=== PATIENT | male | born 1975 | race Caucasian/White ===

== ENCOUNTER → 2016-05-12 | Outpatient (CLI) | payer MEDICARE, MEDICAID ==
[~2016-05-12] MED LIST: /QUET10TA; DEPA500T2 PO; DIOV160T5; DIOV320T6 PO; DIOV80TA; DIOV80TA OR; DOCU10CA PO; HYDR10TAB PO; IMIT6INJ SC; KLON2TAB; KLON2TAB OR; LAMI25TA; LITH45TASA PO; LITHIUM CARBONATE PO; LORA2TAB; NICO14DI3 TD; OMEP40CA2 PO; PAXI20TA; PAXI20TA OR; PAXI20TA3 PO; QUET30TA OR; RITA10TA OR; SIMV10TA2 PO; SUBO8MIS SL; TAMS0.4C2 PO; VERA120T2 PO; ZOLO100T; ZOLO100T OR; ZYPR20TA; ZYPR20TA OR; prestique PO
--- NOTE | 2016-05-12 12:16 | REP ---
BILATERAL BREAST ULTRASOUND: 05/12/2016. Clinical history: 40-year-old male with reported palpable lumps upper outer quadrant of the breast and into the axilla. Suspect large lymph nodes. Comparison: Bilateral mammogram 05/12/2016. Findings: Right breast shows scanning from 9-12 o'clock position with no parenchymal abnormalities, however, high in the axillary tail and axilla are two visible nodes. More inferiorly is a 1.5 x 1 x 0.6 cm node about 10.7 cm from the nipple and at the 11 o'clock position 12 cm from the nipple is a slightly larger 1.9 x 1.4 x 0.6 cm lymph node. Left breast was scanned upper outer quadrant axillary tail and axilla from 12-3 o'clock. In the 1 o'clock position axillary tail, a 1.3 x 1.5 x 0.6 cm node about 7.7 cm from the nipple. In the axilla in the palpable area is a 3.3 x 1.9 x 1.1 cm node. Impression: 1. Bilateral axillary adenopathy and/or nodes in the axillary tail without other findings in the sonogram of the upper outer quadrant of each breast. Please see mammogram report this date for final assessment and recommendation. Signed by Americo Tran MD 05/12/2016 08:19 P
--- NOTE | 2016-05-12 12:32 | REP ---
BILATERAL DIAGNOSTIC MAMMOGRAM: 05/12/2016. Clinical history. The patient states bilateral breast lumps upper outer quadrant axillary tail region into the axilla for a few months. States both sides tender. States less so today. No prior study. Findings: Standard two-view mammography was performed with markers placed by the patient over the area of tenderness. CC and MLO views were obtained. Normal fatty parenchyma of the breast without retroareolar mass or gynecomastia. On the right side in the axilla are portions of lymph nodes visible. These cannot be measured as they are only seen in part. The left breast and portion of the axilla included does not show mammographically visible nodes. Bilateral breast ultrasound and axillary ultrasound: Multiple nodes are present in the left axilla and axillary tail of the breast at the 1 o'clock position 7.7 cm from the nipple, a 1.3 x 1.5 x 0.6 cm node and higher in the axilla a 3.3 x 1.9 x 1.1 cm node not visible mammographically on the left side. The right breast ultrasound showed two nodes in the axillary tail and axillary region in the upper outer quadrant 10 o'clock 10.7 cm from nipple 1.5 x 1 x 0.6 cm and at the 11 o'clock in the region of the palpable area a 1.9 x 1.4 x 0.6 cm node about 12 cm from the nipple. IMPRESSION: BIRADS ACR category 4 suspicious. Suspicious finding. Biopsy should be considered. I would recommend CT evaluation of the axilla for the adenopathy and to guide any decision for biopsy or other next steps. Largest node in the left axilla 3.3 x 1.9 x 1.1 cm. This could be reactive or pathologic. There are no abnormalities visible in the mammogram as the right side only showed portions of lymph nodes in the high axilla. He did state there is a family history of a grandmother with breast cancer in her thirties. B-RADS/ACR category 4 mammogram. Suspicious abnormality - biopsy should be considered. Usually requires biopsy. This mammogram was interpreted with the aid of an FDA-approved computer-aided detection system. A. Negative x-ray reports should not delay biopsy if a dominant or clinically suspicious mass is present. B. Four to eight percent of cancers are not identified by x-ray. C. Adenosis and dense breasts may obscure an underlying neoplasm. The patient states she had a clinical breast exam in 04/2016. The patient letter being requested is M2 male. Signed by Americo Tran MD 05/12/2016 08:20 P
== END ==
LOC: M RAD 10:38
PROVIDERS: ATTEND Physician Assistant
DX: N63 Unspecified lump in breast (principal); R59.9 Enlarged lymph nodes, unspecified
CPT/HCPCS: 76642; G0204

== ENCOUNTER → 2016-05-18 | Outpatient (REF) | payer MEDICARE, MEDICAID ==
[2016-05-18 11:54] LABS: BASO % 0.6 % (0.0-1.0); EOS # 0.3 K/mm3 (0.0-0.50); EOS % 3.9 % (0.0-3.0); LARGE UNSTAINED CELL # 0.1 K/mm3 (0.0-0.4); LARGE UNSTAINED CELL % 1.4 % (0.0-4.0); LYMPH % 27.3 % (24.0-44.0); MEAN CORPUSCULAR HEMOGLOBIN 32.7 pg (27.0-33.0); MEAN CORPUSCULAR HGB CONC 34.5 g/dl (32.0-36.5); MONO # 0.4 K/mm3 (0.0-0.8); MONO % 5.6 % (0.0-5.0); NEUTROPHILS # 4.3 K/mm3 (1.8-7.7); NEUTROPHILS % 61.3 % (36.0-66.0); PLATELET COUNT, AUTOMATED 194 k/mm3 (150-450); RED CELL DISTRIBUTION WIDTH 12.4 % (11.5-14.5); WHITE BLOOD COUNT 7.1 K/mm3 (4.0-10.0)
[2016-05-18 12:17] LABS: ALBUMIN 3.9 GM/DL (3.2-5.2); ALBUMIN/GLOBULIN RATIO 1.39 (1.00-1.93); ALKALINE PHOSPHATASE 75 U/L (45-117); ALT/SGPT 22 U/L (12-78); ANION GAP 5 MEQ/L (8-16); AST/SGOT 7 U/L (15-37); BILIRUBIN,TOTAL 0.4 MG/DL (0.2-1.0); BLOOD UREA NITROGEN 9 MG/DL (7-18); CALCIUM LEVEL 8.8 MG/DL (8.5-10.1); CARBON DIOXIDE LEVEL 29 MEQ/L (21-32); CHLORIDE LEVEL 103 MEQ/L (98-107); CREATININE FOR GFR 0.77 MG/DL (0.70-1.30); GLOMERULAR FILTRATION RATE > 60.0 (>60); GLUCOSE, FASTING 95 MG/DL (70-105); POTASSIUM SERUM 4.7 MEQ/L (3.5-5.1); SODIUM LEVEL 137 MEQ/L (136-145); TOTAL PROTEIN 6.7 GM/DL (6.4-8.2)
[2016-05-18 12:18] LABS: LITHIUM LEVEL 1.16 MEQ/L (0.60-1.20)
== END ==
LOC: M SFHCLERA 08:43
PROVIDERS: ATTEND Physician Assistant
DX: R59.0 Localized enlarged lymph nodes (principal); Z79.899 Other long term (current) drug therapy; R56.9 Unspecified convulsions

== ENCOUNTER → 2016-05-26 | Outpatient (CLI) | payer MEDICARE, MEDICAID ==
[~2016-05-26] MED LIST changes: +ISOVUE-370 76% 100ML VIAL (Q9967) As Ordered ONE
--- NOTE | 2016-05-26 12:20 | REP ---
CT study of the chest with IV contrast: History: Axillary lymphadenopathy. Comparison is made with mammography and sonography from May 12, 2016. CT contrast dose: 75 ml of Isovue [address] findings: The lung valiente are clear. There is no evidence of pulmonary nodule or mass lesion. There is a mild zone of linear fibrosis in the right middle lobe. No pleural effusion or pericardial effusion is seen. No hilar or mediastinal mass or adenopathy is seen. No supraclavicular adenopathy is observed. There are several normal-appearing lymph nodes in the axillary soft tissues bilaterally. There is no adenopathy by CT criteria. No adrenal lesion is seen. The visualized upper abdominal structures are unremarkable. No bony destructive lesion is appreciated. Impression: No active disease. No adenopathy seen by CT criteria. Signed by Donny Marcos MD 05/26/2016 12:27 P
== END ==
LOC: M RAD 11:13
PROVIDERS: ATTEND Physician Assistant
DX: R59.0 Localized enlarged lymph nodes (principal)
CPT/HCPCS: 71260; Q9967

== ENCOUNTER → 2016-07-08 | Outpatient (REF) | payer MEDICARE, MEDICAID ==
[~2016-07-08] MED LIST changes: -ISOVUE-370 76% 100ML VIAL (Q9967) As Ordered ONE
[2016-07-08 17:15] LABS: MEAN CORPUSCULAR HEMOGLOBIN 30.3 pg (27.0-33.0); MEAN CORPUSCULAR HGB CONC 32.7 g/dl (32.0-36.5); MEAN CORPUSCULAR VOLUME 92.6 fl (80.0-96.0); RED CELL DISTRIBUTION WIDTH 12.8 % (11.5-14.5); WHITE BLOOD COUNT 9.7 K/mm3 (4.0-10.0)
[2016-07-08 18:13] LABS: ALBUMIN/GLOBULIN RATIO 1.38 (1.00-1.93); ALKALINE PHOSPHATASE 68 U/L (45-117); ALT/SGPT 22 U/L (12-78); ANION GAP 3 MEQ/L (8-16); AST/SGOT 5 U/L (15-37); BILIRUBIN,TOTAL 0.4 MG/DL (0.2-1.0); BLOOD UREA NITROGEN 11 MG/DL (7-18); CALCIUM LEVEL 8.8 MG/DL (8.5-10.1); CARBON DIOXIDE LEVEL 30 MEQ/L (21-32); CHLORIDE LEVEL 108 MEQ/L (98-107); CREATININE FOR GFR 0.84 MG/DL (0.70-1.30); GLOMERULAR FILTRATION RATE > 60.0 (>60); GLUCOSE, FASTING 79 MG/DL (70-105); MAGNESIUM LEVEL 2.1 MG/DL (1.8-2.4); POTASSIUM SERUM 4.2 MEQ/L (3.5-5.1); SODIUM LEVEL 141 MEQ/L (136-145); TOTAL PROTEIN 6.9 GM/DL (6.4-8.2)
[2016-07-08 18:16] LABS: LITHIUM LEVEL 1.22 MEQ/L (0.60-1.20)
== END ==
LOC: M SFHCLERA 12:57
PROVIDERS: ATTEND Physician Assistant
DX: Z51.81 Encounter for therapeutic drug level monitoring (principal); Z79.899 Other long term (current) drug therapy

== ENCOUNTER → 2016-08-18 | Outpatient (REF) | payer MEDICARE, MEDICAID | LOC: M SMT 16:51 | PROVIDERS: ATTEND Nurse Practitioner Family | DX: R39.9 Unspecified symptoms and signs involving the genitourinary system (principal) | CPT/HCPCS: 81001; 87086; G0463 ==

== ENCOUNTER → 2016-09-15 | Outpatient (REF) | payer MEDICARE, MEDICAID ==
[~2016-09-15] MED LIST changes: +PAXI20TA29 PO; -PAXI20TA3 PO
[2016-09-15 17:43] LABS: ALBUMIN 4.2 GM/DL (3.2-5.2); ANION GAP 7 MEQ/L (8-16); BLOOD UREA NITROGEN 7 MG/DL (7-18); CALCIUM LEVEL 9.4 MG/DL (8.5-10.1); CARBON DIOXIDE LEVEL 25 MEQ/L (21-32); CHLORIDE LEVEL 106 MEQ/L (98-107); GLOMERULAR FILTRATION RATE > 60.0 (>60); GLUCOSE, FASTING 105 MG/DL (70-105); POTASSIUM SERUM 3.9 MEQ/L (3.5-5.1); SODIUM LEVEL 138 MEQ/L (136-145)
== END ==
LOC: M LABSMT 13:27
PROVIDERS: ATTEND Physician Assistant
DX: R35.1 Nocturia (principal)
CPT/HCPCS: 80069; G0103

== ENCOUNTER → 2016-09-24 | Outpatient (CLI) | payer MEDICARE, MEDICAID ==
--- NOTE | 2016-09-24 16:05 | REP ---
Clinical: Left flank pain and nocturia. Technique: Romero scale and color evaluation using curved array transducer. Findings: The kidneys are essentially normal in contour size and echogenicity and reniform shape without hydronephrosis, nephrolithiasis, cystic or renal mass lesion. Right kidney measures 11.5 x 5.8 x 4.9 cm. Left kidney measures 12.9 x 5.4 x 4.7 cm. Bladder is incompletely distended and grossly normal by current evaluation measuring 5.3 x 6.8 x 5.4 cm (127 ml) with bilateral ureteral jets noted. Impression: Normal appearance to the bilateral kidneys. Under distended but unremarkable appearance of the bladder. Signed by Avinash Moser MD 09/24/2016 03:57 P
== END ==
LOC: M LRY 14:20
PROVIDERS: ATTEND Physician Assistant
DX: R35.1 Nocturia (principal)

== ENCOUNTER → 2016-10-19 | Outpatient (CLI) | payer MEDICARE, MEDICAID | LOC: M LRY 10:10 | PROVIDERS: ATTEND Psychiatry & Neurology Neurology | DX: F31.9 Bipolar disorder, unspecified (principal) ==

== ENCOUNTER → 2017-01-10 | Outpatient (CLI) | payer MEDICARE, MEDICAID ==
[2017-01-10 12:15] LABS: MEAN CORPUSCULAR HGB CONC 33.3 g/dl (32.0-36.5); MEAN CORPUSCULAR VOLUME 93.1 fl (80.0-96.0); PLATELET COUNT, AUTOMATED 203 10^3/uL (150-450); RED CELL DISTRIBUTION WIDTH 12.3 % (11.5-14.5); WHITE BLOOD COUNT 7.4 10^3/uL (4.0-10.0)
[2017-01-10 12:54] LABS: ALBUMIN 3.8 GM/DL (3.2-5.2); ALBUMIN/GLOBULIN RATIO 1.27 (1.00-1.93); BILIRUBIN,DIRECT 0.2 MG/DL (0.0-0.2); BILIRUBIN,TOTAL 0.4 MG/DL (0.2-1.0); TOTAL PROTEIN 6.8 GM/DL (6.4-8.2)
[2017-01-10 12:59] LABS: LITHIUM LEVEL 0.75 MEQ/L (0.60-1.20)
== END ==
LOC: M LRY 09:12
PROVIDERS: ATTEND Psychiatry & Neurology Neurology
DX: G44.021 Chronic cluster headache, intractable (principal); F31.9 Bipolar disorder, unspecified
CPT/HCPCS: 36415; 80076; 80164; 80178; 85027; G0463

== ENCOUNTER → 2017-07-12 | Outpatient (REF) | payer MEDICARE, MEDICAID ==
[2017-07-12 12:17] LABS: BASO # 0.1 10^3/uL (0.0-0.2); BASO % 0.7 % (0.0-1.0); EOS # 0.3 10^3/uL (0.0-0.50); EOS % 4.4 % (0.0-3.0); IMMATURE GRANULOCYTE % 0.4 % (0-3.0); LYMPH # 2.1 10^3/uL (1.5-4.5); LYMPH % 29.8 % (24.0-44.0); MEAN CORPUSCULAR HEMOGLOBIN 30.9 pg (27.0-33.0); MEAN CORPUSCULAR HGB CONC 33.3 g/dl (32.0-36.5); MEAN CORPUSCULAR VOLUME 92.6 fl (80.0-96.0); MONO # 0.4 10^3/uL (0.0-0.8); MONO % 5.8 % (0.0-5.0); NEUTROPHILS # 4.2 10^3/uL (1.8-7.7); NEUTROPHILS % 58.9 % (36.0-66.0); PLATELET COUNT, AUTOMATED 208 10^3/uL (150-450); RED BLOOD COUNT 4.21 10^6/uL (4.30-6.10); RED CELL DISTRIBUTION WIDTH 12.6 % (11.5-14.5); WHITE BLOOD COUNT 7.1 10^3/uL (4.0-10.0)
[2017-07-12 12:53] LABS: ALBUMIN 3.9 GM/DL (3.2-5.2); ALBUMIN/GLOBULIN RATIO 1.18 (1.00-1.93); ALKALINE PHOSPHATASE 71 U/L (45-117); ALT/SGPT 23 U/L (12-78); ANION GAP 6 MEQ/L (8-16); AST/SGOT 8 U/L (7-37); BILIRUBIN,TOTAL 0.4 MG/DL (0.2-1.0); BLOOD UREA NITROGEN 9 MG/DL (7-18); CALCIUM LEVEL 8.7 MG/DL (8.5-10.1); CARBON DIOXIDE LEVEL 29 MEQ/L (21-32); CHLORIDE LEVEL 106 MEQ/L (98-107); CREATININE FOR GFR 0.75 MG/DL (0.70-1.30); GLOMERULAR FILTRATION RATE > 60.0 (>60); GLUCOSE, FASTING 98 MG/DL (70-100); POTASSIUM SERUM 4.2 MEQ/L (3.5-5.1); SODIUM LEVEL 141 MEQ/L (136-145); TOTAL PROTEIN 7.2 GM/DL (6.4-8.2); VALPROIC ACID (DEPAKOTE) 21.5 UG/ML (50.0-100.0)
[2017-07-12 12:54] LABS: LITHIUM LEVEL 0.83 MEQ/L (0.60-1.20)
== END ==
LOC: M SFHCLERA 09:55
DX: I10 Essential (primary) hypertension (principal); E03.9 Hypothyroidism, unspecified; F31.9 Bipolar disorder, unspecified
CPT/HCPCS: 80178

== ENCOUNTER → 2017-08-09 | Outpatient (REF) | payer MEDICARE, MEDICAID ==
[2017-08-09 17:13] LABS: HEMATOCRIT 42.9 % (42.0-52.0); HEMOGLOBIN 14.5 g/dl (13.5-17.5); MEAN CORPUSCULAR HEMOGLOBIN 31.6 pg (27.0-33.0); MEAN CORPUSCULAR HGB CONC 33.8 g/dl (32.0-36.5); MEAN CORPUSCULAR VOLUME 93.5 fl (80.0-96.0); PLATELET COUNT, AUTOMATED 218 10^3/uL (150-450); RED BLOOD COUNT 4.59 10^6/uL (4.30-6.10); RED CELL DISTRIBUTION WIDTH 12.5 % (11.5-14.5); WHITE BLOOD COUNT 10.8 10^3/uL (4.0-10.0)
[2017-08-09 17:24] LABS: CHOLESTEROL LEVEL 150 MG/DL (<200); CHOLESTEROL RISK RATIO 2.459 (<5); FERRITIN 42 NG/ML (26-388); FREE T4 1.08 NG/DL (0.76-1.46); HDL CHOLESTEROL 61 MG/DL (>40); IRON (FE) 174 UG/DL (65-175); LDL CHOLESTEROL 57.8 MG/DL (<100); NON-HDL-C 89 MG/DL; TRIGLYCERIDES LEVEL 156 MG/DL (<150)
== END ==
LOC: M SFHCLERA 12:16
DX: R10.12 Left upper quadrant pain (principal); E03.9 Hypothyroidism, unspecified; D64.9 Anemia, unspecified
CPT/HCPCS: 83540

== ENCOUNTER 2018-01-02 10:41 | Emergency (ER) | payer MEDICARE, MEDICAID ==
[2018-01-02] MEDS: LORazepam 2 MG/ML VIAL (J2060) IV (11:41)
[2018-01-02 11:47] LABS: BASO # 0.1 10^3/uL (0.0-0.2); BASO % 0.7 % (0.0-1.0); EOS # 0.3 10^3/uL (0.0-0.50); EOS % 3.8 % (0.0-3.0); HEMATOCRIT 45.3 % (42.0-52.0); HEMOGLOBIN 15.2 g/dl (13.5-17.5); IMMATURE GRANULOCYTE % 0.7 % (0-3.0); LYMPH # 1.5 10^3/uL (1.5-4.5); LYMPH % 20.8 % (24.0-44.0); MEAN CORPUSCULAR HEMOGLOBIN 31.9 pg (27.0-33.0); MEAN CORPUSCULAR HGB CONC 33.6 g/dl (32.0-36.5); MONO # 0.5 10^3/uL (0.0-0.8); MONO % 6.3 % (0.0-5.0); NEUTROPHILS # 4.8 10^3/uL (1.8-7.7); NEUTROPHILS % 67.7 % (36.0-66.0); PLATELET COUNT, AUTOMATED 211 10^3/uL (150-450); RED BLOOD COUNT 4.77 10^6/uL (4.30-6.10); RED CELL DISTRIBUTION WIDTH 12.3 % (11.5-14.5); WHITE BLOOD COUNT 7.1 10^3/uL (4.0-10.0)
[2018-01-02] MEDS: NS 1,000 ML IV (11:49)
[2018-01-02 12:16] LABS: AMMONIA 33 uMOL/L (<32)
[2018-01-02 12:19] LABS: LACTIC ACID SEPSIS PROTOCOL 1.7 MMOL/L (0.4-2.0)
[2018-01-02 12:28] LABS: ACETAMINOPHEN LEVEL < 2.0 UG/ML (10.0-30.0); ALBUMIN 3.5 GM/DL (3.2-5.2); ALBUMIN/GLOBULIN RATIO 0.97 (1.00-1.93); ALKALINE PHOSPHATASE 60 U/L (45-117); ALT/SGPT 23 U/L (12-78); ANION GAP 7 MEQ/L (8-16); AST/SGOT 12 U/L (7-37); BILIRUBIN,DIRECT 0.1 MG/DL (0.0-0.2); BILIRUBIN,TOTAL 0.4 MG/DL (0.2-1.0); BLOOD UREA NITROGEN 9 MG/DL (7-18); CALCIUM LEVEL 8.5 MG/DL (8.5-10.1); CARBON DIOXIDE LEVEL 28 MEQ/L (21-32); CHLORIDE LEVEL 107 MEQ/L (98-107); CK-MB VALUE MASS < 1.0 NG/ML (<3.6); CPK CREATINE PHOSPHOKINASE 91 U/L (39-308); CREATININE FOR GFR 0.83 MG/DL (0.70-1.30); ETHYL ALCOHOL (ETHANOL) < 0.003 % (0.000-0.010); GLOMERULAR FILTRATION RATE > 60.0 (>60); GLUCOSE, FASTING 95 MG/DL (70-100); LITHIUM LEVEL 1.14 MEQ/L (0.60-1.20); POTASSIUM SERUM 4.1 MEQ/L (3.5-5.1); SALICYLATE LEVEL < 1.7 MG/DL (5.0-30.0); SODIUM LEVEL 142 MEQ/L (136-145); TOTAL PROTEIN 7.1 GM/DL (6.4-8.2); TROPONIN I < 0.02 NG/ML (< 0.10); VALPROIC ACID (DEPAKOTE) 17.5 UG/ML (50.0-100.0)
[2018-01-02 13:50] LABS: AMPHETAMINES LEVEL URINE NEGATIVE (NEGATIVE); BARBITURATES URINE NEGATIVE (NEGATIVE); BENZODIAZEPINES URINE NEGATIVE (NEGATIVE); CANNABINOIDS URINE NEGATIVE (NEGATIVE); COCAINE METABOLITE URINE NEGATIVE (NEGATIVE); METHADONE URINE NEGATIVE (NEGATIVE); OPIATES URINE NEGATIVE (NEGATIVE); PHENCYCLIDINE URINE NEGATIVE (NEGATIVE)
[2018-01-02] MEDS: OXAZEPAM 10 MG CAP PO (15:28)
== END 2018-01-02 15:30 | disposition home or self-care (01) ==
LOC: M ED 10:41
DX: R56.9 Unspecified convulsions (principal); F17.210 Nicotine dependence, cigarettes, uncomplicated; F10.10 Alcohol abuse, uncomplicated; F11.10 Opioid abuse, uncomplicated; Z79.899 Other long term (current) drug therapy; F31.9 Bipolar disorder, unspecified
CPT/HCPCS: J2060

== ENCOUNTER → 2018-01-09 | Outpatient (REF) | payer MEDICARE, MEDICAID | LOC: M SFHCLERA 09:27 | DX: E72.20 Disorder of urea cycle metabolism, unspecified (principal); Z53.8 Procedure and treatment not carried out for other reasons ==

== ENCOUNTER 2018-01-12 11:47 | Emergency (ER) | payer MEDICARE, MEDICAID | END 2018-01-12 14:06 | disposition left against medical advice (07) | LOC: M ED 11:47 | DX: Z53.29 Procedure and treatment not carried out because of patient's decision for other reasons (principal) ==

== ENCOUNTER → 2018-03-31 | Outpatient (CLI) | payer MEDICARE ==
[~2018-03-31] MED LIST changes: +OXAZ10CA3 PO
--- NOTE | 2018-03-31 11:11 | REP ---
CT Head without contrast HISTORY: Headache COMPARISON: None There is no intraparenchymal hemorrhage, acute infarct, mass or midline shift. The ventricular system is normal in appearance. There is no extra cerebral collection. There is no fracture. The visualized sinuses are clear. IMPRESSION: There is no intracranial lesion. Electronically Signed by Mor Gomez MD 03/31/2018 11:03 A
== END ==
LOC: M LRY 09:35
PROVIDERS: ATTEND Nurse Practitioner Family
DX: M25.572 Pain in left ankle and joints of left foot (principal); E03.9 Hypothyroidism, unspecified
CPT/HCPCS: 73610; 84439; 84443; 93005; G0463

== ENCOUNTER → 2018-07-17 | Outpatient (REF) | payer MEDICARE ==
[~2018-07-17] MED LIST changes: -/QUET10TA; +HYDR-2773 PO; -HYDR10TAB PO; +SERO1TAB
[2018-07-17 19:53] LABS: ALBUMIN 3.8 GM/DL (3.2-5.2); ALT/SGPT 27 U/L (12-78); BILIRUBIN,TOTAL 0.2 MG/DL (0.2-1.0); BLOOD UREA NITROGEN 12 MG/DL (7-18); CALCIUM LEVEL 8.8 MG/DL (8.5-10.1); CARBON DIOXIDE LEVEL 27 MEQ/L (21-32); CHLORIDE LEVEL 109 MEQ/L (98-107); CREATININE FOR GFR 0.76 MG/DL (0.70-1.30); GLOMERULAR FILTRATION RATE > 60.0 (>60); GLUCOSE, FASTING 92 MG/DL (70-100); POTASSIUM SERUM 5.2 MEQ/L (3.5-5.1); SODIUM LEVEL 140 MEQ/L (136-145); TOTAL PROTEIN 7.2 GM/DL (6.4-8.2)
== END ==
LOC: M LABSMT 17:10
PROVIDERS: ATTEND Family Medicine
DX: E72.20 Disorder of urea cycle metabolism, unspecified (principal)

== ENCOUNTER → 2019-01-12 | Outpatient (CLI) | payer MEDICARE ==
[~2019-01-12] MED LIST changes: -OMEP40CA2 PO; +OMEP40CA97 PO
== END ==
LOC: M OUTALCOH 08:05
PROVIDERS: ATTEND Psychiatry & Neurology Psychiatry
DX: F10.20 Alcohol dependence, uncomplicated (principal)

== ENCOUNTER 2019-03-31 08:44 | Emergency (ER) | payer MEDICARE, MEDICAID ==
[~2019-03-31] VITALS: Ht 175.3 cm; Wt 70.5 kg
[~2019-03-31 08:44] MED LIST changes: +ALPH600C PO; +ALPR1TAB3 PO; +AMIT100TA PO; +AMIT50TA PO; +AMMO12LO TOP; +D31000TA PO; +FLOM0.4C39 PO; +FLUT44IN INH; +HYDR50TA70 PO; +IRBE150T12 PO; +LEVO75TA4 PO; +LITH300T2 PO; +MILK500C PO; +PROBCAP14 PO; +REXU1TAB4 PO; -SIMV10TA2 PO; +SIMV10TA21 PO; +SUMA4INJ4 SC; +VITA400C53 PO; +VRAY1.5C PO; +VRAY3CAP PO; +XANA1TAB2 PO
[2019-03-31] MEDS ORDERED: VRAY4.5C (09:00)
[2019-03-31] MEDS ORDERED: ZOLP10TA2 (09:00)
[2019-03-31 09:49] LABS: BASO # 0.1 10^3/uL (0.0-0.2); BASO % 0.5 % (0.0-1.0); EOS # 0.1 10^3/uL (0.0-0.5); EOS % 0.4 % (0.0-3.0); HEMATOCRIT 53.3 % (42.0-52.0); HEMOGLOBIN 17.7 g/dl (13.5-17.5); LYMPH # 1.7 10^3/uL (1.5-5.0); LYMPH % 13.9 % (24.0-44.0); MEAN CORPUSCULAR HEMOGLOBIN 30.5 pg (27.0-33.0); MEAN CORPUSCULAR HGB CONC 33.2 g/dl (32.0-36.5); MEAN CORPUSCULAR VOLUME 91.9 fl (80.0-96.0); MONO # 0.6 10^3/uL (0.0-0.8); MONO % 4.5 % (0.0-5.0); NEUTROPHILS # 9.8 10^3/uL (1.5-8.5); PLATELET COUNT, AUTOMATED 284 10^3/uL (150-450); WHITE BLOOD COUNT 12.3 10^3/uL (4.0-10.0)
[2019-03-31 10:14] LABS: BLOOD UREA NITROGEN 12 MG/DL (7-18); CALCIUM LEVEL 9.3 MG/DL (8.5-10.1); CARBON DIOXIDE LEVEL 23 MEQ/L (21-32); CHLORIDE LEVEL 107 MEQ/L (98-107); CREATININE FOR GFR 0.78 MG/DL (0.70-1.30); GLOMERULAR FILTRATION RATE > 60.0 (>60); GLUCOSE, FASTING 91 MG/DL (70-100); POTASSIUM SERUM 4.3 MEQ/L (3.5-5.1); SODIUM LEVEL 140 MEQ/L (136-145)
[2019-03-31 10:15] LABS: AMPHETAMINES LEVEL URINE NEGATIVE (NEGATIVE); BARBITURATES URINE NEGATIVE (NEGATIVE); BENZODIAZEPINES URINE POSITIVE (NEGATIVE); CANNABINOIDS URINE NEGATIVE (NEGATIVE); COCAINE METABOLITE URINE NEGATIVE (NEGATIVE); METHADONE URINE NEGATIVE (NEGATIVE); OPIATES URINE NEGATIVE (NEGATIVE); PHENCYCLIDINE URINE NEGATIVE (NEGATIVE)
[2019-03-31] MEDS ORDERED: hydrOXYzine 50 MG TAB PO ONE (10:30)
[2019-03-31 10:52] VITALS: BP 146/94
--- NOTE | 2019-03-31 22:25 | ECGEPIP ---
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
== END 2019-03-31 11:10 | disposition home or self-care (01) ==
LOC: M ED 08:44
DX: G44.009 Cluster headache syndrome, unspecified, not intractable (principal)

== ENCOUNTER 2019-07-20 23:14 | Emergency (ER) | payer MEDICARE, MEDICAID ==
[~2019-07-20] VITALS: Ht 175.3 cm; Wt 72.7 kg
[~2019-07-20 23:14] MED LIST changes: -IRBE150T12 PO; +IRBE150T7 PO; -VERA120T2 PO; +VERA120T9 PO; +VRAY4.5C; +ZOLP10TA2
[2019-07-20] MEDS ORDERED: LITH300T2 PO (23:41)
[2019-07-21] MEDS ORDERED: BOOSTRIX/ADACEL VACCINE (DIPHTH/PERTUSS/ACELL/TETANUS) 0.5ML SYR IM ONE
[2019-07-21 00:22] LABS: HEMATOCRIT 45.1 % (42.0-52.0); HEMOGLOBIN 15.3 g/dl (13.5-17.5); MEAN CORPUSCULAR HEMOGLOBIN 31.9 pg (27.0-33.0); MEAN CORPUSCULAR HGB CONC 33.9 g/dl (32.0-36.5); MEAN CORPUSCULAR VOLUME 94.2 fl (80.0-96.0); PLATELET COUNT, AUTOMATED 269 10^3/uL (150-450); RED BLOOD COUNT 4.79 10^6/uL (4.30-6.10); WHITE BLOOD COUNT 12.5 10^3/uL (4.0-10.0)
[2019-07-21 00:40] LABS: AMPHETAMINES LEVEL URINE NEGATIVE (NEGATIVE); BARBITURATES URINE NEGATIVE (NEGATIVE); BENZODIAZEPINES URINE POSITIVE (NEGATIVE); CANNABINOIDS URINE NEGATIVE (NEGATIVE); COCAINE METABOLITE URINE NEGATIVE (NEGATIVE); METHADONE URINE NEGATIVE (NEGATIVE); OPIATES URINE NEGATIVE (NEGATIVE); PHENCYCLIDINE URINE NEGATIVE (NEGATIVE)
[2019-07-21 00:56] LABS: ACETAMINOPHEN LEVEL < 2.0 UG/ML (10.0-30.0); ALBUMIN 3.7 GM/DL (3.2-5.2); ALT/SGPT 25 U/L (12-78); BILIRUBIN,DIRECT 0.1 MG/DL (0.0-0.2); BILIRUBIN,TOTAL 0.2 MG/DL (0.2-1.0); BLOOD UREA NITROGEN 11 MG/DL (7-18); CARBON DIOXIDE LEVEL 25 MEQ/L (21-32); CHLORIDE LEVEL 109 MEQ/L (98-107); ETHYL ALCOHOL (ETHANOL) 0.144 % (0.000-0.010); GLOMERULAR FILTRATION RATE > 60.0 (>60); GLUCOSE, FASTING 81 MG/DL (70-100); POTASSIUM SERUM 4.3 MEQ/L (3.5-5.1); SALICYLATE LEVEL 2.1 MG/DL (5.0-30.0); SODIUM LEVEL 140 MEQ/L (136-145); THYROID STIMULATING HORMONE 0.796 uIU/ML (0.358-3.740)
[2019-07-21 03:23] VITALS: BP 136/89
== END 2019-07-21 04:08 | disposition home or self-care (01) ==
LOC: M ED 23:14
DX: F10.10 Alcohol abuse, uncomplicated (principal); S51.812A Laceration without foreign body of left forearm, initial encounter; S51.811A Laceration without foreign body of right forearm, initial encounter; S21.119A Laceration without foreign body of unspecified front wall of thorax without penetration into thoracic cavity, initial encounter; X78.9XXA Intentional self-harm by unspecified sharp object, initial encounter; Y92.89 Other specified places as the place of occurrence of the external cause; F31.9 Bipolar disorder, unspecified; I10 Essential (primary) hypertension; K21.9 Gastro-esophageal reflux disease without esophagitis; N40.0 Benign prostatic hyperplasia without lower urinary tract symptoms; F17.210 Nicotine dependence, cigarettes, uncomplicated; Z79.899 Other long term (current) drug therapy; Z23 Encounter for immunization
CPT/HCPCS: 36415; 80048; 80076; 80307; 84443; 85027; 90471; 90715; 99284; G0480

== ENCOUNTER 2019-07-29 21:13 | Emergency (ER) | payer MEDICARE, MEDICAID ==
[~2019-07-29] VITALS: Ht 175.3 cm; Wt 77.3 kg
[2019-07-30] MEDS ORDERED: KETOROLAC TROMETHAMINE 10 MG TAB PO ONE (01:00)
[2019-07-30 05:20] VITALS: BP 164/98
== END 2019-07-30 05:23 | disposition home or self-care (01) ==
LOC: M ED 21:13
DX: F10.120 Alcohol abuse with intoxication, uncomplicated (principal); I10 Essential (primary) hypertension; F31.9 Bipolar disorder, unspecified; F17.200 Nicotine dependence, unspecified, uncomplicated; Z79.899 Other long term (current) drug therapy
CPT/HCPCS: 36415; 99283; G0480

== ENCOUNTER → 2019-10-16 | Outpatient (CLI) | payer MEDICARE, MEDICAID ==
[~2019-10-16] MED LIST changes: +GALC100S INJ; +LAMO25TA4 PO; +PARO20TA4 PO; +PARO40TA2 PO
== END ==
LOC: M OUTALCOH 09:00
PROVIDERS: ATTEND Psychiatry & Neurology Addiction Medicine
DX: F10.20 Alcohol dependence, uncomplicated (principal)

== ENCOUNTER → 2019-11-19 | Outpatient (RCR) | payer MEDICARE, MEDICAID | LOC: M OUTALCOH 10-26 16:00 | PROVIDERS: ATTEND Psychiatry & Neurology Addiction Medicine | DX: F10.20 Alcohol dependence, uncomplicated (principal) | CPT/HCPCS: 90834; H0038 ==

== ENCOUNTER 2019-12-02 11:41 | Emergency (ER) | payer MEDICARE, MEDICAID ==
[~2019-12-02] VITALS: Ht 175.3 cm; Wt 73.7 kg
[~2019-12-02 11:41] MED LIST changes: -GALC100S INJ; -LAMO25TA4 PO; -PARO20TA4 PO; -PARO40TA2 PO
[2019-12-02] MEDS ORDERED: PARO40TA2 PO (11:52)
[2019-12-02] MEDS ORDERED: ALPR1TAB3 PO (11:52)
[2019-12-02] MEDS ORDERED: LAMO25TA4 PO (11:52)
[2019-12-02] MEDS ORDERED: NS 1,000 ML IV SCH (12:02)
[2019-12-02 12:26] LABS: VENOUS BASE EXCESS -1.6 (-2.0-2.0); VENOUS HCO3 23.2 MEQ/L (23.0-27.0); VENOUS O2 SATURATION 95.9 % (60.0-80.0); VENOUS PARTIAL PRESSURE CO2 39.8 mmHg (38.0-50.0); VENOUS PARTIAL PRESSURE O2 78.5 mmHg (30.0-50.0); VENOUS PH 7.384 UNITS (7.330-7.430); VENOUS STANDARD HCO3 23.1 MEQ/L; VENOUS TOTAL CO2 24.5 MEQ/L (24.0-28.0)
[2019-12-02 12:31] LABS: BASO # 0.1 10^3/uL (0.0-0.2); BASO % 0.5 % (0.0-1.0); EOS # 0.2 10^3/uL (0.0-0.5); EOS % 1.6 % (0.0-3.0); HEMATOCRIT 45.7 % (42.0-52.0); LYMPH # 2.3 10^3/uL (1.5-5.0); LYMPH % 21.9 % (24.0-44.0); MEAN CORPUSCULAR HEMOGLOBIN 32.3 pg (27.0-33.0); MEAN CORPUSCULAR VOLUME 92.3 fl (80.0-96.0); MONO # 0.6 10^3/uL (0.0-0.8); MONO % 5.9 % (0.0-5.0); NEUTROPHILS # 7.2 10^3/uL (1.5-8.5); NEUTROPHILS % 69.7 % (36.0-66.0); PLATELET COUNT, AUTOMATED 181 10^3/uL (150-450); RED BLOOD COUNT 4.95 10^6/uL (4.30-6.10); WHITE BLOOD COUNT 10.3 10^3/uL (4.0-10.0)
[2019-12-02 13:01] LABS: ACETAMINOPHEN LEVEL < 2.0 UG/ML (10.0-30.0); ALBUMIN 3.6 GM/DL (3.2-5.2); ALT/SGPT 32 U/L (12-78); BILIRUBIN,DIRECT 0.2 MG/DL (0.0-0.2); BILIRUBIN,TOTAL 0.6 MG/DL (0.2-1.0); BLOOD UREA NITROGEN 7 MG/DL (7-18); CALCIUM LEVEL 8.7 MG/DL (8.5-10.1); CARBON DIOXIDE LEVEL 23 MEQ/L (21-32); CHLORIDE LEVEL 107 MEQ/L (98-107); CPK CREATINE PHOSPHOKINASE 293 U/L (39-308); CREATININE FOR GFR 0.74 MG/DL (0.70-1.30); ETHYL ALCOHOL (ETHANOL) 0.169 % (0.000-0.010); GLOMERULAR FILTRATION RATE > 60.0 (>60); GLUCOSE, FASTING 69 MG/DL (70-100); POTASSIUM SERUM 3.8 MEQ/L (3.5-5.1); SALICYLATE LEVEL 2.5 MG/DL (5.0-30.0); SODIUM LEVEL 140 MEQ/L (136-145); TOTAL PROTEIN 6.6 GM/DL (6.4-8.2)
[2019-12-02 13:16] LABS: AMPHETAMINES LEVEL URINE NEGATIVE (NEGATIVE); BARBITURATES URINE NEGATIVE (NEGATIVE); BENZODIAZEPINES URINE POSITIVE (NEGATIVE); CANNABINOIDS URINE NEGATIVE (NEGATIVE); COCAINE METABOLITE URINE NEGATIVE (NEGATIVE); METHADONE URINE NEGATIVE (NEGATIVE); OPIATES URINE NEGATIVE (NEGATIVE); PHENCYCLIDINE URINE NEGATIVE (NEGATIVE)
[2019-12-02 15:02] LABS: LITHIUM LEVEL < 0.20 MEQ/L (0.60-1.20)
[2019-12-02 17:35] VITALS: BP 142/83
[2019-12-03] MEDS ORDERED: GALC100S INJ (00:23)
[2019-12-03] MEDS ORDERED: VERA120T9 PO (08:26)
[2019-12-03] MEDS ORDERED: PARO20TA4 PO (08:26)
--- NOTE | 2019-12-06 10:14 | ECGEPIP ---
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
== END 2019-12-02 17:48 | disposition home or self-care (01) ==
LOC: M ED 11:41
DX: F10.129 Alcohol abuse with intoxication, unspecified (principal); I10 Essential (primary) hypertension; F31.9 Bipolar disorder, unspecified; R94.31 Abnormal electrocardiogram [ECG] [EKG]; F17.200 Nicotine dependence, unspecified, uncomplicated; Z79.899 Other long term (current) drug therapy
CPT/HCPCS: 36415; 80048; 80076; 80175; 80178; 80307; 82550; 82803; 84443; 85025; 93005; 93041; 94760; 99285; G0480

== ENCOUNTER 2019-12-02 20:20 | Emergency (ER) | payer MEDICARE, MEDICAID ==
[~2019-12-02] VITALS: Ht 175.3 cm; Wt 74.2 kg
[~2019-12-02 20:20] MED LIST changes: +LAMO25TA4 PO; +PARO40TA2 PO
[2019-12-02 21:22] LABS: HEMATOCRIT 41.6 % (42.0-52.0); HEMOGLOBIN 14.5 g/dl (13.5-17.5); MEAN CORPUSCULAR HEMOGLOBIN 32.4 pg (27.0-33.0); MEAN CORPUSCULAR HGB CONC 34.9 g/dl (32.0-36.5); MEAN CORPUSCULAR VOLUME 92.9 fl (80.0-96.0); PLATELET COUNT, AUTOMATED 159 10^3/uL (150-450); RED BLOOD COUNT 4.48 10^6/uL (4.30-6.10); WHITE BLOOD COUNT 7.2 10^3/uL (4.0-10.0)
[2019-12-02 21:44] LABS: AMPHETAMINES LEVEL URINE NEGATIVE (NEGATIVE); BARBITURATES URINE NEGATIVE (NEGATIVE); BENZODIAZEPINES URINE POSITIVE (NEGATIVE); CANNABINOIDS URINE NEGATIVE (NEGATIVE); COCAINE METABOLITE URINE NEGATIVE (NEGATIVE); METHADONE URINE NEGATIVE (NEGATIVE); OPIATES URINE NEGATIVE (NEGATIVE); PHENCYCLIDINE URINE NEGATIVE (NEGATIVE)
[2019-12-02] MEDS ORDERED: BOOSTRIX/ADACEL VACCINE (DIPHTH/PERTUSS/ACELL/TETANUS) 0.5ML SYR IM ONE (21:45)
[2019-12-02 21:55] LABS: ACETAMINOPHEN LEVEL < 2.0 UG/ML (10.0-30.0); ALBUMIN 3.3 GM/DL (3.2-5.2); ALT/SGPT 36 U/L (12-78); BILIRUBIN,DIRECT 0.1 MG/DL (0.0-0.2); BILIRUBIN,TOTAL 0.4 MG/DL (0.2-1.0); BLOOD UREA NITROGEN 8 MG/DL (7-18); CALCIUM LEVEL 8.8 MG/DL (8.5-10.1); CARBON DIOXIDE LEVEL 27 MEQ/L (21-32); CHLORIDE LEVEL 107 MEQ/L (98-107); CREATININE FOR GFR 0.85 MG/DL (0.70-1.30); ETHYL ALCOHOL (ETHANOL) 0.082 % (0.000-0.010); GLOMERULAR FILTRATION RATE > 60.0 (>60); GLUCOSE, FASTING 83 MG/DL (70-100); POTASSIUM SERUM 4.2 MEQ/L (3.5-5.1); SALICYLATE LEVEL 2.5 MG/DL (5.0-30.0); SODIUM LEVEL 141 MEQ/L (136-145); TOTAL PROTEIN 6.6 GM/DL (6.4-8.2)
[2019-12-03] MEDS ORDERED: GALC100S INJ (00:23)
[2019-12-03] MEDS ORDERED: LEVOTHYROXINE 75MCG TABLET (0.075MG) PO SCH (06:00)
[2019-12-03] MEDS ORDERED: PARO20TA4 PO (08:26)
[2019-12-03] MEDS ORDERED: VERA120T9 PO (08:26)
[2019-12-03] MEDS ORDERED: PARoxetine 20 MG TAB PO SCH ×2 (09:00)
[2019-12-03] MEDS ORDERED: LITHIUM CARBONATE 600 MG CAP PO SCH ×2 (09:00)
[2019-12-03] MEDS ORDERED: IRBESARTAN 150MG TAB PO SCH (09:00)
[2019-12-03] MEDS ORDERED: LITHIUM CARBONATE 300 MG CAP PO SCH (09:00)
[2019-12-03] MEDS ORDERED: NICOTINE 21MG/24HR 1 EA TRANSDERMAL TD ONE (10:00)
[2019-12-03 10:25] VITALS: BP 150/79
[2019-12-03] MEDS: VERAPAMIL 40 MG TAB PO SCH ×2 (10:25→14:35)
[2019-12-03] MEDS ORDERED: LORazepam 2 MG TAB PO STA (12:05)
[2019-12-03 17:38] VITALS: BP 137/88
--- NOTE | 2019-12-07 11:20 | ECGEPIP ---
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
== END 2019-12-03 17:42 ==
LOC: M ED 20:20
DX: F31.9 Bipolar disorder, unspecified (principal); S51.812A Laceration without foreign body of left forearm, initial encounter; X78.9XXA Intentional self-harm by unspecified sharp object, initial encounter; Y92.9 Unspecified place or not applicable; Y99.9 Unspecified external cause status; R00.1 Bradycardia, unspecified; I10 Essential (primary) hypertension; R56.9 Unspecified convulsions; I73.00 Raynaud's syndrome without gangrene; K21.9 Gastro-esophageal reflux disease without esophagitis; N40.0 Benign prostatic hyperplasia without lower urinary tract symptoms; F11.10 Opioid abuse, uncomplicated; F17.210 Nicotine dependence, cigarettes, uncomplicated; Z79.899 Other long term (current) drug therapy
CPT/HCPCS: 36415; 80048; 80076; 80178; 80307; 84443; 85027; 90471; 90715; 93005; 99285; G0480

== ENCOUNTER 2019-12-12 08:45 | Outpatient (RCR) | payer MEDICARE, MEDICAID ==
[~2019-12-12 08:45] MED LIST changes: +GALC100S INJ; +PARO20TA4 PO
== END 2019-12-19 ==
LOC: M OUTALCOH 08:45
PROVIDERS: ATTEND Psychiatry & Neurology Addiction Medicine
DX: F10.20 Alcohol dependence, uncomplicated (principal)

== ENCOUNTER 2020-01-18 08:45 | Outpatient (RCR) | payer MEDICARE, MEDICAID | END 2020-01-19 | LOC: M OUTALCOH 08:45 | PROVIDERS: ATTEND Psychiatry & Neurology Addiction Medicine | DX: F10.20 Alcohol dependence, uncomplicated (principal) | CPT/HCPCS: 90832; H0038 ==

== ENCOUNTER 2020-02-06 13:22 | Outpatient (RCR) | payer MEDICARE, MEDICAID | END 2020-02-18 | LOC: M OUTALCOH 13:22 | PROVIDERS: ATTEND Psychiatry & Neurology Addiction Medicine | DX: F10.20 Alcohol dependence, uncomplicated (principal) ==

== ENCOUNTER 2020-03-01 15:39 | Inpatient (IN) | payer MEDICARE, MEDICAID ==
[~2020-03-01] VITALS: Ht 175.3 cm; Wt 74.7 kg
[2020-03-01] MEDS ORDERED: BUPR150T5 PO (16:02)
[2020-03-01] MEDS ORDERED: VRAY4.5C PO (16:03)
[2020-03-01 16:11] LABS: BASO % 0.4 % (0.0-1.0); EOS # 0.1 10^3/uL (0.0-0.5); EOS % 0.8 % (0.0-3.0); HEMATOCRIT 50.7 % (42.0-52.0); HEMOGLOBIN 17.3 g/dl (13.5-17.5); LYMPH # 1.9 10^3/uL (1.5-5.0); LYMPH % 18.4 % (24.0-44.0); MEAN CORPUSCULAR HEMOGLOBIN 30.8 pg (27.0-33.0); MEAN CORPUSCULAR HGB CONC 34.1 g/dl (32.0-36.5); MEAN CORPUSCULAR VOLUME 90.4 fl (80.0-96.0); MONO # 0.6 10^3/uL (0.0-0.8); MONO % 5.7 % (0.0-5.0); NEUTROPHILS # 7.8 10^3/uL (1.5-8.5); NEUTROPHILS % 74.3 % (36.0-66.0); PLATELET COUNT, AUTOMATED 216 10^3/uL (150-450); RED BLOOD COUNT 5.61 10^6/uL (4.30-6.10); WHITE BLOOD COUNT 10.4 10^3/uL (4.0-10.0)
[2020-03-01 16:32] LABS: AMPHETAMINES LEVEL URINE NEGATIVE (NEGATIVE); BARBITURATES URINE NEGATIVE (NEGATIVE); BENZODIAZEPINES URINE NEGATIVE (NEGATIVE); CANNABINOIDS URINE NEGATIVE (NEGATIVE); COCAINE METABOLITE URINE POSITIVE (NEGATIVE); METHADONE URINE NEGATIVE (NEGATIVE); OPIATES URINE NEGATIVE (NEGATIVE); PHENCYCLIDINE URINE NEGATIVE (NEGATIVE)
[2020-03-01 16:57] LABS: ACETAMINOPHEN LEVEL < 2.0 UG/ML (10.0-30.0); ALT/SGPT 33 U/L (12-78); BILIRUBIN,DIRECT 0.1 MG/DL (0.0-0.2); BILIRUBIN,TOTAL 0.4 MG/DL (0.2-1.0); BLOOD UREA NITROGEN 11 MG/DL (7-18); CALCIUM LEVEL 8.8 MG/DL (8.5-10.1); CARBON DIOXIDE LEVEL 23 MEQ/L (21-32); CHLORIDE LEVEL 109 MEQ/L (98-107); CREATININE FOR GFR 0.91 MG/DL (0.70-1.30); ETHYL ALCOHOL (ETHANOL) < 0.003 % (0.000-0.010); GLOMERULAR FILTRATION RATE > 60.0 (>60); GLUCOSE, FASTING 96 MG/DL (70-100); POTASSIUM SERUM 3.9 MEQ/L (3.5-5.1); SALICYLATE LEVEL 4.4 MG/DL (5.0-30.0); SODIUM LEVEL 140 MEQ/L (136-145); TOTAL PROTEIN 7.5 GM/DL (6.4-8.2)
[2020-03-01] MEDS ORDERED: NICO2GUM41 PO (19:33)
[2020-03-01] MEDS ORDERED: MAALOX 30 ML SUSP *UDC PO PRN (20:45)
[2020-03-01] MEDS ORDERED: ACETAMINOPHEN TAB 650MG DOSE (2X325MG) PO PRN (20:45)
[2020-03-01] MEDS ORDERED: MOM 30ML SUSPENSION UDC PO PRN (20:45)
[2020-03-01 21:52] VITALS: BP 147/95
[2020-03-01] MEDS: TAMSULOSIN 0.4 MG CAP PO SCH (22:55)
[2020-03-01] MEDS: VERAPAMIL 40 MG TAB PO SCH (22:56)
[2020-03-02 06:00] VITALS: BP 147/88
[2020-03-02] MEDS: LEVOTHYROXINE 75MCG TABLET (0.075MG) PO SCH (06:23)
[2020-03-02] MEDS: VERAPAMIL 40 MG TAB PO SCH ×4 (07:59→20:15)
[2020-03-02] MEDS: IRBESARTAN 150MG TAB PO SCH (08:00)
[2020-03-02] MEDS: buPROPion **SR TABLET** (ZYBAN) 150MG PO SCH (08:00)
[2020-03-02] MEDS: CARIPRAZINE 1.5MG CAPSULE (VRAYLAR) PO SCH (08:00)
[2020-03-02] MEDS: NICOTINE POLACRILEX 2 MG GUM PO PRN ×4 (08:00→20:19)
[2020-03-02] MEDS ORDERED: LORazepam 2 MG TAB PO PRN (09:15)
[2020-03-02] MEDS ORDERED: OXAZEPAM 10 MG CAP PO ONE (09:15)
--- NOTE | 2020-03-02 09:28 | HPEPDOC ---
[facility] Medical History & Physical Date of Admission Mar 01, 2020 Date of Service: Mar 02, 2020 History and Physical CHIEF COMPLAINT: Routine medical exam HISTORY OF PRESENT ILLNESS: 44-year-old male with history of alcohol abuse, hypothyroidism, reflux, rosacea, bipolar disorder, history of opiate addiction, cluster headaches, hyperlipidemia, reflux, gastritis, tobacco abuse, erectile dysfunction. Benign Prostatic hypertrophy, seizure, renal cyst disorder and herpes admitted to the inpatient mental health unit being evaluated in today for routine medical examination. Patient denies fever, chill, shortness of breath, chest pain, pressure, tightness, lightheadedness, dizziness, nausea, vomiting, diarrhea, abdominal pain, constipation, bright red blood per rectum, melena, black tarry stools, dysuria, urgency, frequency, flank pain, bilateral upper and lower extremity weakness, paresthesias, sore throat, ear discharge, diplopia, blurred vision, tinnitus. He complains of bilateral upper extremity tremors since his last drink 01/24/2020, without paresthesias, visual hallucinations, or abdominal pain. PAST MEDICAL HISTORY: alcohol abuse, hypothyroidism, reflux, rosacea, bipolar disorder, history of opiate addiction, cluster headaches, hyperlipidemia, reflux, gastritis, tobacco abuse, erectile dysfunction. Benign Prostatic hypertrophy, seizure, renal cyst disorder and herpes PAST SURGICAL HISTORY: 2008. Tonsillectomy, adenoidectomy as a child SOCIAL HISTORY: , Smokes a pack a day cigarettes since age of 20. Alcohol abuse. Last drink 01/24/2020. Currently on disability due to bipolar disorder. 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 Mother alive age 60 with obesity, thyroid disorder ALLERGIES: Please see below. REVIEW OF SYSTEMS: 10 point systems review negative aside from positive findings on HPI HOME MEDICATIONS: Please see below. PHYSICAL EXAMINATION: VITAL SIGNS: See below GENERAL APPEARANCE: Awake, alert, oriented 3, answering questions appropriately HEENT: No JVD, no thyromegaly. Moist mucous membranes. No carotid bruit, no distress. No use of respiratory accessory muscles CARDIOVASCULAR: S1, S2, sinus rhythm LUNGS: Clear to auscultation. Wheezing, rales or rhonchi ABDOMEN: Soft, nontender, nondistended, positive bowel sounds 4 quadrants. No rebound or guarding EXTREMITIES: No cyanosis, clubbing or pitting edema NEUROLOGICAL: Mild asterixis. Resting tremors. No paresthesias, 5 out of 5 motor 4 extremities. Normal gait. Face is symmetric. Tongue is midline. No pronator drift. Negative Babinski LABORATORY DATA: See below. MICROBIOLOGY: Please see below. ASSESSMENT: 44-year-old male with history of alcohol abuse, hypothyroidism, reflux, rosacea, bipolar disorder, history of opiate addiction, cluster headaches, hyper lipidemia, reflux, gastritis, tobacco abuse, erectile dysfunction. Benign Prostatic hypertrophy, seizure, renal cyst disorder and herpes admitted to the inpatient mental health unit being evaluated in today for routine medical examination. Patient denies fever, chill, shortness of breath, chest pain, pressure, tightness, lightheadedness, dizziness, nausea, vomiting, diarrhea, abdominal pain, constipation, bright red blood per rectum, melena, black tarry stools, dysuria, urgency, frequency, flank pain, bilateral upper and lower extremity weakness, paresthesias, sore throat, ear discharge, diplopia, blurred vision, tinnitus. He complains of bilateral upper extremity tremors since his last drink 01/24/2020, without paresthesias, visual hallucinations, or abdominal pain. alcohol withdrawal, mild hypothyroidism, reflux, rosacea, bipolar disorder, history of opiate addiction, cluster headaches, hyperlipidemia, gastritis, tobacco abuse, erectile dysfunction. Benign Prostatic hypertrophy, seizure, renal cyst PLAN: Second gastric issues to be managed by primary team. Patient is exhibiting mild alcohol, withdrawal. CIWA protocol. Serax x1. , Ativan when necessary Tobacco cessation counseling has been provided nicotine patch started on multivitamin, thiamine and folate. . No other acute medical issues Hospital service will sign off. Please reconsult for any acute medical needs. Vital Signs Vital Signs Date Time Temp Pulse Resp B/P (MAP) Pulse Ox O2 Delivery O2 Flow Rate FiO2 03/02/20 07:59 102 134/97 03/02/20 06:00 97.8 16 95 Room Air Laboratory Data Labs 24H Laboratory Tests 2 03/01/20 15:58: Urine Opiates Screen NEGATIVE, Urine Methadone Screen NEGATIVE, Urine Barbiturates Screen NEGATIVE, Urine Phencyclidine Screen NEGATIVE, Urine Amphetamines Screen NEGATIVE, Urine Benzodiazepines Screen NEGATIVE, Urine Cocaine Metabolite Screen POSITIVEH, Urine Cannabinoids Screen NEGATIVE 03/01/20 16:00: Immature Granulocyte % (Auto) 0.4, Neutrophils (%) (Auto) 74.3H, Lymphocytes (%) (Auto) 18.4L, Monocytes (%) (Auto) 5.7H, Eosinophils (%) (Auto) 0.8, Basophils (%) (Auto) 0.4, Neutrophils # (Auto) 7.8, Lymphocytes # (Auto) 1.9, Monocytes # (Auto) 0.6, Eosinophils # (Auto) 0.1, Basophils # (Auto) 0.0, Nucleated Red Blood Cells % (auto) 0.0, Anion Gap 8, Glomerular Filtration Rate > 60.0, Calcium Level 8.8, Total Bilirubin 0.4, Direct Bilirubin 0.1, Aspartate Amino Transf (AST/SGOT) 9, Alanine Aminotransferase (ALT/SGPT) 33, Alkaline Phosphatase 74, Total Protein 7.5, Albumin 4.0, Albumin/Globulin Ratio 1.1, Thyroid Stimulating Hormone (TSH) 1.050, Salicylates Level 4.4L, Acetaminophen Level < 2.0L, Ethyl Alcohol Level < 0.003 03/01/20 17:10: Coronavirus (COVID-19)(PCR) NEGATIVE CBC/BMP Laboratory Tests 03/01/20 16:00 Home Medications Scheduled Alprazolam (Alprazolam) 1 Mg Tablet, 1 MG PO TID Bupropion Hcl (Bupropion HCl Sr) 150 Mg Tab.sr.12h, 150 MG PO DAILY Cariprazine HCl (Vraylar) 4.5 Mg Capsule, 4.5 MG PO DAILY Galcanezumab-Gnlm (Emgality Syringe) 300 Mg/3 Ml Syringe, 300 MG INJ QMONTH Irbesartan (Irbesartan) 150 Mg Tablet, 150 MG PO DAILY Levothyroxine Sodium (Levothyroxine Sodium) 75 Mcg Tablet, 75 MCG PO DAILY Tamsulosin HCl (Flomax) 0.4 Mg Capsule, 0.4 MG PO QPM Verapamil HCl (Verapamil HCl) 120 Mg Tablet, 120 MG PO QID FOR CLUSTER HEADACHES Scheduled PRN Nicotine Polacrilex (Nicotine Gum) 2 Mg Gum, 2 MG PO Q1H PRN for CRAVINGS Sumatriptan Succinate (Sumatriptan Succinate) 4 Mg/0.5 Ml Cartridge, 4 MG SC BID PRN for MIGRAINE Allergies Coded Allergies: No Known Allergies (Verified Allergy, Unknown, 01/30/19) A-FIB/CHADSVASC A-FIB History Current/History of A-Fib/PAF?: No Age/Risk Factor Scoring CHADSVASC: CHADSVASC Response (Comments) Value Age Risk Factor Age < 65 years old 0 Gender Risk Factor Male 0 Hx of CHF No 0 Hx of HTN No 0 Hx of Stroke/TIA/or VTE No 0 Hx of Diabetes No 0 Hx of Vascular Disease No 0 Total 0 Treatment Treatment ordered: NONE MONI BORJA MD Mar 02, 2020 09:28
[2020-03-02] MEDS: MULTIVITAMINS/MINERALS THERAP 1 TAB PO SCH (09:42)
[2020-03-02] MEDS: FOLIC ACID 1 MG TAB PO SCH (09:43)
[2020-03-02] MEDS: THIAMINE 100 MG TAB PO SCH (09:43)
[2020-03-02 16:37] VITALS: BP 122/60
[2020-03-02] MEDS: traZODone 50 MG TAB PO PRN (20:15)
[2020-03-02] MEDS: TAMSULOSIN 0.4 MG CAP PO SCH (20:16)
[2020-03-02 20:42] VITALS: BP 142/93
[2020-03-02] MEDS: busPIRone 10 MG TAB PO SCH (21:58)
[2020-03-03] MEDS: LEVOTHYROXINE 75MCG TABLET (0.075MG) PO SCH (05:31)
[2020-03-03 05:44] VITALS: BP 126/70
[2020-03-03 06:26] VITALS: BP 126/70
[2020-03-03] MEDS: CARIPRAZINE 1.5MG CAPSULE (VRAYLAR) PO SCH (08:50)
[2020-03-03] MEDS: buPROPion **SR TABLET** (ZYBAN) 150MG PO SCH (08:51)
[2020-03-03] MEDS: busPIRone 10 MG TAB PO SCH ×3 (08:51→20:19)
[2020-03-03] MEDS: THIAMINE 100 MG TAB PO SCH (08:52)
[2020-03-03] MEDS: IRBESARTAN 150MG TAB PO SCH (08:52)
[2020-03-03] MEDS: MULTIVITAMINS/MINERALS THERAP 1 TAB PO SCH (08:53)
[2020-03-03] MEDS: FOLIC ACID 1 MG TAB PO SCH (08:53)
[2020-03-03] MEDS: VERAPAMIL 40 MG TAB PO SCH ×4 (08:53→20:20)
[2020-03-03] MEDS: NICOTINE POLACRILEX 2 MG GUM PO PRN ×3 (08:53→20:19)
--- NOTE | 2020-03-03 08:58 | MHHPE ---
COUNT INCLUDES THE [facility] HISTORY AND PHYSICAL DATE OF ADMISSION: 03/01/2020 HISTORY OF PRESENT ILLNESS: This is one of multiple admissions for this 44-year-old man who presented to the emergency room stating that he wanted to kill himself by overdosing on his blood pressure medication. The patient today tells me that he really did not have suicidal thoughts, but he just said that because "I wanted to get help right away". The patient states that he has been feeling increasingly depressed, feeling hopeless and helpless and he feels pretty upset because he said that a month ago he went to inpatient rehabilitation for alcohol abuse and he feels that he was only in there for 12 days because his insurance company would not pay for my days. He admits that he relapsed right away as soon as he got discharged and he did not follow through with going to any outpatient treatment. Also, he is seen by Dr. Guerrero, outpatient psychiatrist, for what he says is diagnosis of bipolar disorder and admits that he just stopped all his medications as he was discharged. He is supposed to be Vraylar 4.5 mg daily, Wellbutrin XL 150 mg daily. He says that he is also prescribed Xanax 1 mg three times a day, which I advised him that we would not continue that for him due to his substance abuse. He says that in the inpatient rehabilitation program they have started him on BuSpar 10 mg three times a day and that he felt that it was helpful and would like to get back on it again. The patient says that he has been drinking 2 to 4 beers a day, but I suspect that he is probably just minimizing how much he drinks. He does have a tremor, but he says that is due to him being on lithium in the past. The patient describes that he has episodes when he becomes manic and during that time "I feel good, so good that I don't even use drugs". He says he has rapid speech and racing thoughts during those times. PAST PSYCHIATRIC HISTORY: The patient has a history of a prior psychiatric admission to [facility] 01/30/2019 until 02/02/2019. He was diagnosed with generalized anxiety disorder, history of bipolar disorder with flor and psychosis, cocaine and benzodiazepine use disorder and history of multiple anxiolytic stimulants, opioid, cannabis and alcohol use disorder. At that time, the patient was discharged on Rexulti 3 mg daily, Vistaril 50 mg q 6 hours as needed for anxiety and amitriptyline 100 mg q.h.s. He says that he has never made any suicidal attempts, but he says that he has a history of cutting. FAMILY HISTORY: He says his mom and sister have depression and anxiety. There are no suicides in the family. MEDICAL HISTORY: The patient does have history of hypertension, hypercholesterolemia, hypothyroidism, cluster headaches, hypertension and benign prostatic hyperplasia. ABUSE HISTORY: Denies any history of physical or sexual abuse. SUBSTANCE ABUSE HISTORY: This is as noted above as far as the alcohol goes and the patient denies using any drugs, but he does have a history of abusing drugs as noted above. REVIEW OF SYSTEMS: Vital signs: Blood pressure is____ , pulse is ____and respiratory rate is ____. The patient did not appear to be in any apparent distress. Neuromuscular system: The patient's gait is normal and there were no involuntary movements noted in the extremities. All other systems were reviewed and found to be negative. MENTAL STATUS EXAMINATION: He is alert and oriented times 3. Eye contact fair. Psychomotor activity is normal. He is not psychotic, suicidal or homicidal. Memory is depressed. Affect is full range and appropriate. Insight and judgment are poor. DIAGNOSES: 1. Bipolar disorder, type 1, depressed. 2. Alcohol use disorder. 3. History of benzodiazepine use disorder. 4. Cocaine use disorder. 5. Anxiolytic use disorder. 6. Stimulant use disorder. 7. Cannabis use disorder. TREATMENT PLAN: At this point, we will continue to monitor the patient for continued resolution of suicidal ideations and stabilization of mood and we will go ahead and restart his medications. The Vraylar 4.5 mg daily, Wellbutrin XL 150 mg daily and BuSpar 10 mg three times a day. I will not prescribe Xanax for this patient as he has a history of abusing Xanax and significant substance abuse. When the patient is stable he will be discharged with appropriate follow up.
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
[2020-03-03 17:53] VITALS: BP 146/88
[2020-03-03] MEDS: TAMSULOSIN 0.4 MG CAP PO SCH (20:19)
[2020-03-03 21:06] VITALS: BP 153/91
[2020-03-03] MEDS: traZODone 50 MG TAB PO PRN (21:23)
[2020-03-04 05:30] VITALS: BP 117/68
[2020-03-04] MEDS: LEVOTHYROXINE 75MCG TABLET (0.075MG) PO SCH (05:47)
[2020-03-04 06:29] VITALS: BP 117/68
[2020-03-04] MEDS: FOLIC ACID 1 MG TAB PO SCH (09:17)
[2020-03-04] MEDS: THIAMINE 100 MG TAB PO SCH (09:17)
[2020-03-04] MEDS: IRBESARTAN 150MG TAB PO SCH (09:17)
[2020-03-04] MEDS: buPROPion **SR TABLET** (ZYBAN) 150MG PO SCH (09:17)
[2020-03-04] MEDS: CARIPRAZINE 1.5MG CAPSULE (VRAYLAR) PO SCH (09:17)
[2020-03-04] MEDS: busPIRone 10 MG TAB PO SCH ×3 (09:18→21:01)
[2020-03-04] MEDS: MULTIVITAMINS/MINERALS THERAP 1 TAB PO SCH (09:18)
[2020-03-04] MEDS: VERAPAMIL 40 MG TAB PO SCH ×4 (09:18→21:02)
[2020-03-04] MEDS: NICOTINE POLACRILEX 2 MG GUM PO PRN ×2 (09:19→13:25)
--- NOTE | 2020-03-04 11:35 | MHIPNPDOC ---
[facility] Progress Note Progress Note DATE OF SERVICE: 03/04/20 HISTORY: Patient is a 44 year old , Unemployed, Domiciled, Male who was brought to the ED after he had reported to his mother that he was suicidal with a plan to overdose on Blood Pressure Medications. He reports increasing depression and anxiety since he was discharged from inpatient rehab for alcohol dependence. Reports that once her returned from rehab he had a neighbor who was using him for rides and this was causing him increased anxiety and subsequently depression with suicidal ideation. VITAL SIGNS: See below. NEW TEST RESULTS: CURRENT MEDICATIONS: See below. MENTAL STATUS EXAMINATION: Patient is a 44 year old , Unemployed, Domiciled, Male who was brought to the ED after he had reported to his mother that he was suicidal with a plan to overdose on Blood Pressure Medications. Speech: Is fluid, conversant, normal rate, tone and volume Language skills are intact Thought processes including: linear and goal oriented Thought content: reports depression and anxiety, states that he has anxiety about going home, fears being impulsive. Denies suicidal/homicidal ideation, planning or intent. Abstract reasoning, and computation: fair Description of associations: denies, none observed Description of abnormal or psychotic thoughts: denies, none observed. Judgment: fair Insight: fair Orientation: alert and oriented to person, place, time and situation Recent and remote memory: intact Attention span and concentration: good Language: expansive Fund of knowledge: average Mood: depressed Mood Affect: flat DIAGNOSES: Bipolar I Disorder, Depressed Alcohol Use Disorder Cocaine Use Disorder Anxiolytic Use Disorder History of Benzodiazepine Use Disorder ASSESSMENT: Patient reporting decreased anxiety and depression. Patient states, "I think I can do this" in regards to going home. He discusses how his neighbors can be mildly-moderately aggressive with using him for transportation. He states that in the past, he has suspected them to be transporting illegal substances and he fears that he may be criminally implicated if he continues to be made to transport them - this was causing him extreme and severe anxiety fearing that he might be doing something illegal and subsequently he became depressed over the fear. He feels that the best way he can move past his depression and anxiety about these people is to rely on his genuine supports, his mother, friends, etc. 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 MANAGEMENT PLAN: Continued all medications as prescribed. Patient can be discharged tomorrow. TIME SPENT: 25 minutes. Vital Signs Vital Signs Date Time Temp Pulse Resp B/P (MAP) Pulse Ox O2 Delivery O2 Flow Rate FiO2 03/04/20 09:18 51 117/68 03/04/20 06:29 98.5 16 98 Room Air Current Medications Current Medications Medications (Trade) Dose Ordered Sig/Sharla Route PRN Reason Start Time Stop Time Status Last Admin Dose Admin Acetaminophen (Tylenol Tab) 650 mg Q6HP PRN PO HEADACHE or DISCOMFORT 03/01/20 20:45 Al Hydrox/Mg Hydrox/Simethicone (Mylanta) 30 ml Q4HP PRN PO HEARTBURN/INDIGESTION 03/01/20 20:45 Bupropion HCl (Zyban, Wellbutrin Sr) 150 mg DAILY PO 03/02/20 09:00 03/04/20 09:17 Buspirone HCl (Buspar) 10 mg TID PO 03/02/20 21:00 03/04/20 09:18 Cariprazine (Vraylar) 4.5 mg DAILY PO 03/02/20 09:00 03/04/20 09:17 Folic Acid (Folic Acid) 1 mg DAILY PO 03/02/20 09:00 03/04/20 09:17 Home Med (Med Rec Complete!) ASDIRECTED XX 03/01/20 19:45 03/01/20 19:55 DC Irbesartan (Avapro) 150 mg DAILY PO 03/02/20 09:00 03/04/20 09:17 Levothyroxine Sodium (Synthroid) 75 mcg DAILY@0600 PO 03/02/20 06:00 03/04/20 05:47 Lorazepam (Ativan) 2 mg Q6HP PRN PO WITHDRAWAL SYMPTOMS 03/02/20 09:15 Magnesium Hydroxide (Milk Of Magnesia) 30 ml DAILYPRN PRN PO CONSTIPATION 03/01/20 20:45 Multivitamins (Theragram-M) 1 tab DAILY PO 03/02/20 09:00 03/04/20 09:18 Nicotine (Nicorette) 2 mg Q4H PRN PO CRAVINGS 03/01/20 20:45 03/04/20 09:19 Tamsulosin HCl (Flomax) 0.4 mg QPM PO 03/01/20 21:00 03/03/20 20:19 Thiamine HCl (Thiamine HCl) 100 mg DAILY PO 03/02/20 09:00 03/04/20 09:17 Trazodone HCl (Desyrel) 50 mg QHSP PRN PO INSOMNIA 03/01/20 20:45 03/03/20 21:23 Verapamil HCl (Calan) 120 mg QID PO 03/01/20 21:00 03/04/20 09:18 Allergies Coded Allergies: No Known Allergies (Verified Allergy, Unknown, 01/30/19) RADHA BARRAGAN NP Mar 04, 2020 11:35
[2020-03-04 16:00] VITALS: BP 144/88
[2020-03-04 21:00] VITALS: BP 117/68
[2020-03-04] MEDS: traZODone 50 MG TAB PO PRN (21:01)
[2020-03-04] MEDS: TAMSULOSIN 0.4 MG CAP PO SCH (21:01)
[2020-03-05] MEDS: LEVOTHYROXINE 75MCG TABLET (0.075MG) PO SCH (05:46)
[2020-03-05 05:55] VITALS: BP 121/58
[2020-03-05 06:29] VITALS: BP 121/58
[2020-03-05] MEDS: busPIRone 10 MG TAB PO SCH (08:48)
[2020-03-05] MEDS: buPROPion **SR TABLET** (ZYBAN) 150MG PO SCH (08:48)
[2020-03-05] MEDS: CARIPRAZINE 1.5MG CAPSULE (VRAYLAR) PO SCH (08:48)
[2020-03-05 08:50] VITALS: BP 121/58
[2020-03-05] MEDS: IRBESARTAN 150MG TAB PO SCH (08:50)
[2020-03-05] MEDS: FOLIC ACID 1 MG TAB PO SCH (08:50)
[2020-03-05] MEDS: VERAPAMIL 40 MG TAB PO SCH (08:50)
[2020-03-05] MEDS: MULTIVITAMINS/MINERALS THERAP 1 TAB PO SCH (08:50)
[2020-03-05] MEDS: THIAMINE 100 MG TAB PO SCH (08:50)
[2020-03-05] MEDS: NICOTINE POLACRILEX 2 MG GUM PO PRN (08:51)
--- NOTE | 2020-03-05 09:55 | MHDSPDOC ---
[facility] Discharge Summary Discharge Summary DATE OF ADMISSION: Mar 01, 2020 at 20:35 DATE OF DISCHARGE: March 05, 2020 at 0935 DISCHARGE DIAGNOSES: 1. Bipolar I Disorder, Depressed 2. Alcohol Use Disorder 3. Cocaine Use Disorder 4. Anxiolytic Use Disorder 5. History of Benzodiazepine Use Disorder REASON FOR ADMISSION: Patient is a 44 year old , Unemployed, Domiciled, Male who was brought to the ED after he had reported to his mother that he was suicidal with a plan to overdose on Blood Pressure Medications. He reports increasing depression and anxiety since he was discharged from inpatient rehab for alcohol dependence. Reports that once he returned from rehab he had a neighbor who was using him for rides and this was causing him increased anxiety and subsequently depression with suicidal ideation. This is one of multiple admissions for this 44-year-old man who presented to the emergency room stating that he wanted to kill himself by overdosing on his blood pressure medication. The patient today tells me that he really did not have suicidal thoughts, but he just said that because "I wanted to get help right away". The patient states that he has been feeling increasingly depressed, feeling hopeless and helpless and he feels pretty upset because he said that a month ago he went to inpatient rehabilitation for alcohol abuse and he feels that he was only in there for 12 days because his insurance company would not pay for my days. He admits that he relapsed right away as soon as he got discharged and he did not follow through with going to any outpatient treatment. Also, he is seen by Dr. Guerrero, outpatient psychiatrist, for what he says is diagnosis of bipolar disorder and admits that he just stopped all his medications as he was discharged. He is supposed to be Vraylar 4.5 mg daily, Wellbutrin XL 150 mg daily. He says that he is also prescribed Xanax 1 mg three times a day, which I advised him that we would not continue that for him due to his substance abuse. He says that in the inpatient rehabilitation program they have started him on BuSpar 10 mg three times a day and that he felt that it was helpful and would like to get back on it again. The patient says that he has been drinking 2 to 4 beers a day, but I suspect that he is probably just minimizing how much he drinks. He does have a tremor, but he says that is due to him being on lithium in the past. The patient describes that he has episodes when he becomes manic and during that time "I feel good, so good that I don't even use drugs". He says he has rapid speech and racing thoughts during those times. CONSULTANTS INVOLVED: See Medical H + P by Hospitalist TREATMENT AND PROGRESS ON THE UNIT: Patient was admitted to the [facility] on a 39 legal status he was afforded the following treatment modalities: 1) Individual Therapy 2) Group Therapy 3) Medication Management 4) Milieu Therapy 5) Safe Environment HOSPITAL COURSE: Patient was admitted to [facility] on a legal status. He was started on his home medications and stated that his biggest stressors were his neighbors and the relationship with his ex- who will not allow him to see his teenage daughter. He continued to ruminate about the length of stay at the rehab reporting that he did not have enough days (12 days ) for his treatment. He was cooperative with inpatient treatment protocols. He attended groups, was conversant and engaged in medication/treatment regimen and social with peers. He did not endorse suicidal thinking and he had reported decreased in depressive symptoms. DISCHARGE ASSESSMENT: In today's interview patient continued to ruminate about his neighbors. He is more fearful of his genuine platonic relationship with them, but does not want to help them as he feels that they have been using him. I do not see this as paranoia but he reports that he became depressed when he could not say no to helping his neighbors. He states that today, he is going to be assertive and stay away from them or ignore them as much as possible. 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 He reports a decrease in depression and has mild anxiety about retuning home, but denies that this is a barrier to being discharged. He denies suicidal/homicidal ideation, planning or intent. He denies paranoia, flor, psychosis, obsessions, auditory or visual hallucinations, delusions or bizarre thinking. Patient has a normal mental status exam, is not a danger to himself or others and has not had behaviors while hospitalized that indicate this. At this time, he meets criteria for discharge and is requesting it. MENTAL STATUS EXAMINATION ON DISCHARGE: Patient is a 44 year old , Unemployed, Domiciled, Male who was brought to the ED after he had reported to his mother that he was suicidal with a plan to overdose on Blood Pressure Medications. Speech: Is fluid, conversant, normal rate, tone and volume Language skills are intact Thought processes including: linear and goal oriented Thought content: reports depression and anxiety, states that he has anxiety about going home, fears being impulsive. Denies suicidal/homicidal ideation, planning or intent. Abstract reasoning, and computation: fair Description of associations: denies, none observed Description of abnormal or psychotic thoughts: denies, none observed. Judgment: fair Insight: fair Orientation: alert and oriented to person, place, time and situation Recent and remote memory: intact Attention span and concentration: good Language: expansive Fund of knowledge: average Mood: euthymic, at times nervous but denies anxiety Mood Affect: reactive MEDICATIONS ON DISCHARGE: See Medication Reconciliation PLAN/FOLLOWUP ARRANGEMENTS: [facility] The amount of time spent in the coordination of care for this patient was approximately 25 minutes. Vital Signs/I&Os Vital Signs Date Time Temp Pulse Resp B/P (MAP) Pulse Ox O2 Delivery O2 Flow Rate FiO2 03/05/20 08:50 64 121/58 03/05/20 06:29 98.3 16 96 03/04/20 06:29 Room Air Medications Scheduled Bupropion Hcl (Bupropion HCl Sr) 150 Mg Tab.sr.12h, 150 MG PO DAILY, (Reported) Cariprazine HCl (Vraylar) 4.5 Mg Capsule, 4.5 MG PO DAILY, (Reported) Galcanezumab-Gnlm (Emgality Syringe) 300 Mg/3 Ml Syringe, 300 MG INJ QMONTH, (R eported) Irbesartan (Irbesartan) 150 Mg Tablet, 150 MG PO DAILY, (Reported) Levothyroxine Sodium (Levothyroxine Sodium) 75 Mcg Tablet, 75 MCG PO DAILY, (Reported) Tamsulosin HCl (Flomax) 0.4 Mg Capsule, 0.4 MG PO QPM, (Reported) Verapamil HCl (Verapamil HCl) 120 Mg Tablet, 120 MG PO QID, (Reported) FOR CLUSTER HEADACHES Scheduled PRN Nicotine Polacrilex (Nicotine Gum) 2 Mg Gum, 2 MG PO Q1H PRN for CRAVINGS, (Reported) Sumatriptan Succinate (Sumatriptan Succinate) 4 Mg/0.5 Ml Cartridge, 4 MG SC BID PRN for MIGRAINE, (Reported) Allergies Coded Allergies: No Known Allergies (Verified Allergy, Unknown, 01/30/19) RADHA BARRAGAN NP Mar 05, 2020 09:36
== END 2020-03-05 10:30 | disposition home or self-care (01) | DRG 885 ==
LOC: M ED 15:39 → M ED INP 20:35 → M PSY 21:53
PROVIDERS: ADMIT Psychiatry & Neurology Psychiatry; ATTEND Psychiatry & Neurology Psychiatry
DX: F31.9 Bipolar disorder, unspecified (principal); F11.20 Opioid dependence, uncomplicated; F10.239 Alcohol dependence with withdrawal, unspecified; R45.851 Suicidal ideations; F14.10 Cocaine abuse, uncomplicated; F15.10 Other stimulant abuse, uncomplicated; F12.10 Cannabis abuse, uncomplicated; E03.9 Hypothyroidism, unspecified; K21.9 Gastro-esophageal reflux disease without esophagitis; L71.9 Rosacea, unspecified; G44.009 Cluster headache syndrome, unspecified, not intractable; E78.5 Hyperlipidemia, unspecified; N52.9 Male erectile dysfunction, unspecified; F17.210 Nicotine dependence, cigarettes, uncomplicated; N40.0 Benign prostatic hyperplasia without lower urinary tract symptoms; Z79.899 Other long term (current) drug therapy; Z20.828 Contact with and (suspected) exposure to other viral communicable diseases

== ENCOUNTER → 2020-06-12 | Outpatient (CLI) | payer MEDICARE, MEDICAID ==
[~2020-06-12] MED LIST changes: +BUPR150T5 PO; +NICO2GUM41 PO; +VRAY4.5C PO
== END ==
LOC: M LAB 13:12
PROVIDERS: ATTEND Family Medicine
DX: E03.9 Hypothyroidism, unspecified (principal)

== ENCOUNTER → 2020-06-12 | Outpatient (CLI) | payer MEDICARE, MEDICAID | LOC: M LAB 13:14 | PROVIDERS: ATTEND Urology | DX: Z12.5 Encounter for screening for malignant neoplasm of prostate (principal); R97.20 Elevated prostate specific antigen [PSA] | CPT/HCPCS: 36415; G0103 ==

== ENCOUNTER 2020-10-26 17:29 | Inpatient (IN) | payer MEDICAID, MEDICARE ==
[~2020-10-26] VITALS: Ht 175.3 cm; Wt 72.0 kg
[~2020-10-26 17:29] MED LIST changes: +OMEP40CA4 PO; -OMEP40CA97 PO
[2020-10-26] MEDS ORDERED: LORazepam 2 MG/ML VIAL IV STA ×2 (17:44→18:02)
[2020-10-26] MEDS ORDERED: MULTIVITAMIN -ADULT INJECTION 10 ML, THIAMINE INJection 100 MG, FOLIC ACID 1 MG in NS 1... IV ONE (17:45)
[2020-10-26] MEDS ORDERED: ALPR1TAB3 PO (17:51)
[2020-10-26] MEDS ORDERED: LATU80TA PO (17:51)
[2020-10-26] MEDS ORDERED: LORazepam 2 MG TAB PO PRN (18:05)
[2020-10-26 18:22] LABS: BASO # 0.1 10^3/uL (0.0-0.2); BASO % 0.5 % (0.0-1.0); EOS # 0.1 10^3/uL (0.0-0.5); EOS % 1.3 % (0.0-3.0); HEMATOCRIT 47.2 % (42.0-52.0); HEMOGLOBIN 16.8 g/dl (13.5-17.5); LYMPH % 21.9 % (24.0-44.0); MEAN CORPUSCULAR HEMOGLOBIN 31.9 pg (27.0-33.0); MEAN CORPUSCULAR HGB CONC 35.6 g/dl (32.0-36.5); MEAN CORPUSCULAR VOLUME 89.7 fl (80.0-96.0); MONO # 0.6 10^3/uL (0.0-0.8); MONO % 6.7 % (2.0-8.0); NEUTROPHILS # 6.4 10^3/uL (1.5-8.5); NEUTROPHILS % 68.8 % (36.0-66.0); PLATELET COUNT, AUTOMATED 213 10^3/uL (150-450); RED BLOOD COUNT 5.26 10^6/uL (4.30-6.10); WHITE BLOOD COUNT 9.3 10^3/uL (4.0-10.0)
[2020-10-26 18:42] LABS: AMPHETAMINES LEVEL URINE NEGATIVE (NEGATIVE); BARBITURATES URINE NEGATIVE (NEGATIVE); BENZODIAZEPINES URINE NEGATIVE (NEGATIVE); CANNABINOIDS URINE POSITIVE (NEGATIVE); COCAINE METABOLITE URINE POSITIVE (NEGATIVE); METHADONE URINE NEGATIVE (NEGATIVE); OPIATES URINE NEGATIVE (NEGATIVE); PHENCYCLIDINE URINE NEGATIVE (NEGATIVE)
[2020-10-26 18:54] LABS: ACETAMINOPHEN LEVEL < 2.0 UG/ML (10.0-30.0); ALBUMIN 3.6 GM/DL (3.2-5.2); ALT/SGPT 27 U/L (12-78); BILIRUBIN,DIRECT 0.2 MG/DL (0.0-0.2); BILIRUBIN,TOTAL 0.4 MG/DL (0.2-1.0); BLOOD UREA NITROGEN 9 MG/DL (7-18); CALCIUM LEVEL 8.7 MG/DL (8.5-10.1); CARBON DIOXIDE LEVEL 23 MEQ/L (21-32); CHLORIDE LEVEL 110 MEQ/L (98-107); CPK CREATINE PHOSPHOKINASE 121 U/L (39-308); CREATININE FOR GFR 0.68 MG/DL (0.70-1.30); ETHYL ALCOHOL (ETHANOL) < 0.003 % (0.000-0.010); GLOMERULAR FILTRATION RATE > 60.0 (>60); GLUCOSE, FASTING 83 MG/DL (70-100); SALICYLATE LEVEL 3.6 MG/DL (5.0-30.0); SODIUM LEVEL 141 MEQ/L (136-145)
[2020-10-26] MEDS ORDERED: BUPR100T3 PO (19:34)
[2020-10-26] MEDS ORDERED: HOME MED LIST COMPLETE! XX SCH (19:40)
[2020-10-26] MEDS ORDERED: ACETAMINOPHEN TAB 650MG DOSE (2X325MG) PO PRN (20:00)
[2020-10-26] MEDS ORDERED: MAALOX 30 ML SUSP *UDC PO PRN (20:00)
[2020-10-26] MEDS ORDERED: MOM 30ML SUSPENSION UDC PO PRN (20:00)
--- NOTE | 2020-10-26 20:02 | HPEPDOC ---
[facility] Medical History & Physical Date of Admission Oct 26, 2020 Date of Service: Oct 26, 2020 History and Physical CHIEF COMPLAINT: SUSPECTED DRUG OVERDOSE, ETOH WITHDRAWAL HISTORY OF PRESENT ILLNESS: 45 yo M with a PMHx of etoh use disorder, hypothyroidism, GERD, bipolar disorder, rosacea, opiate use disorder, HLD, cluster headaches, BPH, seizure disorder, renal cysts, HSV. He was brought to ER by police and EMS for suspected drug overdose with Wellbutrin, as well as acute etoh withdrawal. Patient had recently filled a new wellbutrin Rx. He has a hx of frequent episodes of etoh withdrawal, resulting in DTs and seizures. Patient states that he drinks ~12 beers daily, and his last drink was this morning at 9 am. At the time of my exam, he reports active SI with visual hallucinations (shapes, floaters), but denies HI. He denies taking prescriptions medications including wellbutrin, but states he had a plan to overdose on his prescription of Verapamil. He denies chest pain, palpitations, SOB, headache, subjective fevers or chills but is reporting tremulousness and anxiety, which he attributes to etoh withdrawal. Poison control center recommending admission for observation. He will be admitted for monitoring as well as treatment of acute etoh withdrawal. PAST MEDICAL HISTORY: alcohol abuse, hypothyroidism, reflux, rosacea, bipolar disorder, history of opiate addiction, cluster headaches, hyperlipidemia, reflux, gastritis, tobacco abuse, erectile dysfunction. Benign Prostatic hypertrophy, seizure, renal cyst disorder and herpes PAST SURGICAL HISTORY: Tonsillectomy SOCIAL HISTORY: active smoker, 20 pack year hx active etoh use disorder opiate use disorder FAMILY HISTORY: Father age 61, unknown medical problems. Mother alive age 60 with obesity, thyroid disorder ALLERGIES: Please see below. REVIEW OF SYSTEMS: 10 point ROS conducted, relevant findings are noted in the HPI HOME MEDICATIONS: Please see below. PHYSICAL EXAMINATION: VITAL SIGNS: Temperature , pulse , respiratory rate , blood pressure , pulse oximetry % on room air. GENERAL APPEARANCE: . HEENT: . CARDIOVASCULAR: . LUNGS: . ABDOMEN: . MUSCULOSKELETAL: . EXTREMITIES: . NEUROLOGICAL: . PSYCHIATRIC: . LABORATORY DATA: See below. IMAGING: MICROBIOLOGY: Please see below. ASSESSMENT: 45 yo M with a PMHx of etoh use disorder, hypothyroidism, GERD, bipolar disorder, rosacea, opiate use disorder, HLD, cluster headaches, BPH, seizure disorder, renal cysts, HSV. He was brought to ER by police and EMS for suspected drug overdose with Wellbutrin, as well as acute etoh withdrawal. Patient had recently filled a new wellbutrin Rx. He has a hx of frequent episodes of etoh withdrawal, resulting in DTs and seizures. Patient states that he drinks ~12 beers daily, and his last drink was this morning at 9 am. At the time of my exam, he reports active SI with visual hallucinations (shapes, floaters), but denies HI. He denies taking prescriptions medications including wellbutrin, but states he had a plan to overdose on his prescription of Verapamil. He denies chest pain, palpitations, SOB, headache, subjective fevers or chills but is reporting tremulousness and anxiety, which he attributes to etoh withdrawal. Poison control center recommending admission for observation. He will be admitted for monitoring as well as treatment of acute etoh withdrawal. . PLAN: Acute etoh withdrawal: start CIWA protocol. Thiamine, folate, B12, MVT. ativan prn per CIWA protocol. Start serax 20 mg PO q6h. Seizure precautions ordered. Bipolar disoder: will require psych eval. Holding psych medications at this time. Takes wellbutrin at home Suspected intentional OD wellbutrin: patien denies taking wellbutrin. recently filled new Rx bottle. EKG showing NSR. Alert and oriented. Poison contol recommeding observation on telemetry. Repeat EKG ordered for AM Suicidal ideation: one to one sitter. Having active SI. Plan to OD on verapamil. Day team to consult psychiatry for possible admission to [facility] once medically stable HLD BPH GERD Hypothyroidism: resume levothyroxine. Renal cyst: outpatient follow up Dispo: pending clinical improvement. Psychiatry consult for SI and possible [facility] admission once medically stable. Vital Signs Vital Signs Date Time Temp Pulse Resp B/P (MAP) Pulse Ox O2 Delivery O2 Flow Rate FiO2 10/26/20 19:38 145/89 10/26/20 18:28 99.0 10/26/20 17:43 70 16 97 Room Air Laboratory Data Labs 24H Laboratory Tests 2 10/26/20 18:02: Bedside Glucose (Misc Panel) 92 10/26/20 18:07: Immature Granulocyte % (Auto) 0.8, Neutrophils (%) (Auto) 68.8H, Lymphocytes (%) (Auto) 21.9L, Monocytes (%) (Auto) 6.7, Eosinophils (%) (Auto) 1.3, Basophils (%) (Auto) 0.5, Neutrophils # (Auto) 6.4, Lymphocytes # (Auto) 2.0, Monocytes # (Auto) 0.6, Eosinophils # (Auto) 0.1, Basophils # (Auto) 0.1, Nucleated Red Blood Cells % (auto) 0.0, Anion Gap 8, Glomerular Filtration Rate > 60.0, C alcium Level 8.7, Total Bilirubin 0.4, Direct Bilirubin 0.2, Aspartate Amino Transf (AST/SGOT) 9, Alanine Aminotransferase (ALT/SGPT) 27, Alkaline Phosphatase 92, Total Creatine Kinase 121, Total Protein 7.0, Albumin 3.6, Albumin/Globulin Ratio 1.1, Thyroid Stimulating Hormone (TSH) 2.180, Salicylates Level 3.6L, Acetaminophen Level < 2.0L, Ethyl Alcohol Level < 0.003 10/26/20 18:09: Urine Opiates Screen NEGATIVE, Urine Methadone Screen NEGATIVE, Urine Barbiturates Screen NEGATIVE, Urine Phencyclidine Screen NEGATIVE, Urine Amphetamines Screen NEGATIVE, Urine Benzodiazepines Screen NEGATIVE, Urine Cocaine Metabolite Screen POSITIVEH, Urine Cannabinoids Screen POSITIVEH CBC/BMP Laboratory Tests 10/26/20 18:07 Home Medications Scheduled Bupropion Hcl (Bupropion HCl Sr) 100 Mg Tab.sr.12h, 100 MG PO BID Irbesartan (Irbesartan) 150 Mg Tablet, 150 MG PO DAILY Levothyroxine Sodium (Levothyroxine Sodium) 75 Mcg Tablet, 75 MCG PO DAILY Lurasidone HCl (Latuda) 80 Mg Tablet, 80 MG PO QPM Tamsulosin HCl (Flomax) 0.4 Mg Capsule, 0.4 MG PO QPM Verapamil HCl (Verapamil HCl) 120 Mg Tablet, 120 MG PO QID FOR CLUSTER HEADACHES Scheduled PRN Alprazolam (Alprazolam) 1 Mg Tablet, 1 MG PO TID PRN for ANXIETY Sumatriptan Succinate (Sumatriptan Succinate) 4 Mg/0.5 Ml Cartridge, 4 MG SC BID PRN for MIGRAINE Allergies Coded Allergies: No Known Allergies (Verified Allergy, Unknown, 01/30/19) A-FIB/CHADSVASC A-FIB History Current/History of A-Fib/PAF?: No ENMA PERKINS MD Oct 26, 2020 20:02
[2020-10-26] MEDS: LORazepam 2 MG TAB PO PRN (20:14)
[2020-10-26] MEDS: OXAZEPAM 10 MG CAP PO SCH ×2 (20:22→23:11)
--- NOTE | 2020-10-26 20:33 | ECGEPIP ---
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
[2020-10-26] MEDS: DOCUSATE SODIUM 100MG CAPSULE PO SCH (23:11)
[2020-10-26] MEDS: THIAMINE 100 MG TAB PO SCH (23:11)
[2020-10-26] MEDS: TAMSULOSIN 0.4 MG CAP PO SCH (23:11)
[2020-10-27] VITALS (13 sets, daily range): BP systolic 120–147; BP diastolic 66–85; O2SAT 95–98
[2020-10-27] MEDS: HEPARIN SOD (PORCINE) 5000UNITS/ML 1ML VIAL/SYRINGE SC SCH ×3 (06:32→22:00)
[2020-10-27] MEDS: OXAZEPAM 10 MG CAP PO SCH ×3 (06:36→17:57)
[2020-10-27] MEDS: LEVOTHYROXINE 75MCG TABLET (0.075MG) PO SCH (06:36)
[2020-10-27 07:27] LABS: BASO # 0.1 10^3/uL (0.0-0.2); BASO % 0.6 % (0.0-1.0); EOS # 0.1 10^3/uL (0.0-0.5); EOS % 1.7 % (0.0-3.0); HEMATOCRIT 47.6 % (42.0-52.0); HEMOGLOBIN 15.8 g/dl (13.5-17.5); LYMPH % 25.1 % (24.0-44.0); MEAN CORPUSCULAR HEMOGLOBIN 30.5 pg (27.0-33.0); MEAN CORPUSCULAR HGB CONC 33.2 g/dl (32.0-36.5); MEAN CORPUSCULAR VOLUME 91.9 fl (80.0-96.0); MONO # 0.5 10^3/uL (0.0-0.8); MONO % 6.6 % (2.0-8.0); NEUTROPHILS # 5.1 10^3/uL (1.5-8.5); NEUTROPHILS % 65.1 % (36.0-66.0); PLATELET COUNT, AUTOMATED 194 10^3/uL (150-450); RED BLOOD COUNT 5.18 10^6/uL (4.30-6.10); WHITE BLOOD COUNT 7.8 10^3/uL (4.0-10.0)
[2020-10-27 08:03] LABS: ALBUMIN 3.2 GM/DL (3.2-5.2); ALT/SGPT 22 U/L (12-78); BILIRUBIN,TOTAL 0.7 MG/DL (0.2-1.0); BLOOD UREA NITROGEN 10 MG/DL (7-18); CALCIUM LEVEL 8.2 MG/DL (8.5-10.1); CARBON DIOXIDE LEVEL 25 MEQ/L (21-32); CHLORIDE LEVEL 111 MEQ/L (98-107); CREATININE FOR GFR 0.68 MG/DL (0.70-1.30); GLOMERULAR FILTRATION RATE > 60.0 (>60); GLUCOSE, FASTING 88 MG/DL (70-100); MAGNESIUM LEVEL 2.1 MG/DL (1.8-2.4); POTASSIUM SERUM 3.8 MEQ/L (3.5-5.1); SODIUM LEVEL 140 MEQ/L (136-145); TOTAL PROTEIN 6.1 GM/DL (6.4-8.2)
[2020-10-27] MEDS: THIAMINE 100 MG TAB PO SCH ×2 (09:24→20:26)
[2020-10-27] MEDS: FOLIC ACID 1 MG TAB PO SCH (09:25)
[2020-10-27] MEDS: IRBESARTAN 150MG TAB PO SCH (09:25)
[2020-10-27] MEDS: MULTIVITAMINS/MINERALS THERAP 1 TAB PO SCH (09:25)
[2020-10-27] MEDS: DOCUSATE SODIUM 100MG CAPSULE PO SCH ×2 (09:25→20:27)
[2020-10-27] MEDS ORDERED: SLF 3 ML SYR IV PRN (10:00)
--- NOTE | 2020-10-27 11:46 | IPNPDOC ---
Text Note Date of Service The patient was seen on 10/27/20. NOTE S: Pt seen and evaluated at bedside this AM. Reports doing well overall w/ fara quate sleep through the night. Reports continued anxiety, but resolution of "shakes." Denies suicidal ideation, but still has suicidal thoughts. Denies chest pain, palpitations, SOB, abd pain, n/v O: GEN: laying in bed, NAD, alert and awake HEENT: NC/AT, EOMI, nares patent, moist mucous membranes CARDIO: normal heart sounds, RRR, no MRG PULM: CTA b/l, no WRR, +stridor RLL, no accessory muscles used ABD: decreased BS, soft, nontender, nondistended EXTREMITIES: no edema, normal ROM A/P: 45M PMH EtOH use disorder, Bipolar disorder, opiate use disorder w/ suspected Wellbutrin OD and EtoH withdrawl sx, found to have suicidal ideation pending psych evaluation and possible IMHU admission. #Acute EtOH withdrawl- improving Pt reports drinking 12beers/day. Last drink 10/26 AM. Pt tells me his tremors have resolved. Feelings of anxiety persist. On CIWA protocol, thiamine, folate, B12, Serax #Bipolar disorder Takes Wellbutrin at home Hold Wellbutrin, pending psych eval Psych on Consult #Suspected intentional Wellbutrin OD, SI Pt has one to one sitter. On telemetry EKG NSR 10/26. Repeat EKG today Psych on consult #BPH On Tamulosin #Hypothyroidism On Levothyroxine #DVT Prophylaxis TEDs and sequentials DISPO: possible IMHU admission, pending psych eval Activity as tolerated Regular diet VS,Fishbone, I+O VS, Fishbone, I+O Laboratory Tests 10/26/20 18:07 10/27/20 06:46 Vital Signs Date Time Temp Pulse Resp B/P (MAP) Pulse Ox O2 Delivery O2 Flow Rate FiO2 10/27/20 09:25 122/66 10/27/20 07:45 74 99 10/27/20 07:41 97.4 20 10/27/20 05:45 Room Air I&O- Last 24 Hours up to 6 AM 10/27/20 06:00 Intake Total 1011.2 ml Balance 1011.2 ml Betina Snell DO Oct 27, 2020 11:46
[2020-10-27] MEDS: NICOTINE 21MG/24HR 1 EA TRANSDERMAL TD SCH (12:00)
[2020-10-27] MEDS: SLF 3 ML SYR IV SCH ×2 (13:26→22:16)
--- NOTE | 2020-10-27 19:55 | ECGEPIP ---
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
[2020-10-27] MEDS: TAMSULOSIN 0.4 MG CAP PO SCH (20:26)
[2020-10-28] VITALS (14 sets, daily range): BP systolic 106–152; BP diastolic 54–84; O2SAT 96–98
[2020-10-28] MEDS: OXAZEPAM 10 MG CAP PO SCH ×4 (00:01→17:48)
[2020-10-28] MEDS: LORazepam 2 MG TAB PO PRN (01:46)
[2020-10-28 05:22] LABS: BASO % 0.5 % (0.0-1.0); EOS # 0.2 10^3/uL (0.0-0.5); EOS % 1.9 % (0.0-3.0); HEMATOCRIT 47.4 % (42.0-52.0); LYMPH # 2.5 10^3/uL (1.5-5.0); LYMPH % 32.5 % (24.0-44.0); MEAN CORPUSCULAR HEMOGLOBIN 30.9 pg (27.0-33.0); MEAN CORPUSCULAR HGB CONC 33.8 g/dl (32.0-36.5); MEAN CORPUSCULAR VOLUME 91.7 fl (80.0-96.0); MONO # 0.6 10^3/uL (0.0-0.8); MONO % 7.2 % (2.0-8.0); NEUTROPHILS # 4.4 10^3/uL (1.5-8.5); NEUTROPHILS % 56.7 % (36.0-66.0); PLATELET COUNT, AUTOMATED 191 10^3/uL (150-450); RED BLOOD COUNT 5.17 10^6/uL (4.30-6.10); WHITE BLOOD COUNT 7.8 10^3/uL (4.0-10.0)
[2020-10-28] MEDS: SLF 3 ML SYR IV SCH ×3 (05:32→21:26)
[2020-10-28 05:44] LABS: BLOOD UREA NITROGEN 9 MG/DL (7-18); CARBON DIOXIDE LEVEL 26 MEQ/L (21-32); CHLORIDE LEVEL 111 MEQ/L (98-107); CREATININE FOR GFR 0.66 MG/DL (0.70-1.30); GLOMERULAR FILTRATION RATE > 60.0 (>60); GLUCOSE, FASTING 95 MG/DL (70-100); POTASSIUM SERUM 3.9 MEQ/L (3.5-5.1); SODIUM LEVEL 143 MEQ/L (136-145)
[2020-10-28 05:45] LABS: ALBUMIN 3.4 GM/DL (3.2-5.2); ALT/SGPT 26 U/L (12-78); BILIRUBIN,TOTAL 0.3 MG/DL (0.2-1.0); CALCIUM LEVEL 8.8 MG/DL (8.5-10.1); MAGNESIUM LEVEL 2.2 MG/DL (1.8-2.4); TOTAL PROTEIN 6.4 GM/DL (6.4-8.2)
[2020-10-28] MEDS: LEVOTHYROXINE 75MCG TABLET (0.075MG) PO SCH (06:16)
[2020-10-28] MEDS: HEPARIN SOD (PORCINE) 5000UNITS/ML 1ML VIAL/SYRINGE SC SCH ×3 (06:16→21:25)
[2020-10-28] MEDS: IRBESARTAN 150MG TAB PO SCH (08:44)
[2020-10-28] MEDS: NICOTINE 21MG/24HR 1 EA TRANSDERMAL TD SCH (08:44)
[2020-10-28] MEDS: FOLIC ACID 1 MG TAB PO SCH (08:45)
[2020-10-28] MEDS: DOCUSATE SODIUM 100MG CAPSULE PO SCH ×2 (08:45→21:00)
[2020-10-28] MEDS: THIAMINE 100 MG TAB PO SCH ×2 (08:45→21:24)
[2020-10-28] MEDS: MULTIVITAMINS/MINERALS THERAP 1 TAB PO SCH (08:45)
--- NOTE | 2020-10-28 13:22 | IPNPDOC ---
Text Note Date of Service The patient was seen on 10/28/20. NOTE S: Pt seen and evaluated at bedside this AM. Reports doing well overall w/ im proved tremors and sweats. Reports still hearing "noises" which he describes as amplified sounds in surrounding environment. Denies hearing voices. Reports anxiety. Reports unresolved suicidal ideation and suicidal thoughts. He tells me he does not feel safe going home at this time and will most likely OD on his Verapamil. Denies chest pain, palpitations, SOB, abd pain, n/v. O: GEN: laying in bed, NAD, alert and awake HEENT: NC/AT, EOMI, nares patent, moist mucous membranes CARDIO: normal heart sounds, RRR, no MRG PULM: CTA b/l, no WRR, no accessory muscles used ABD: decreased BS, soft, nontender, nondistended EXTREMITIES: no edema, normal ROM PSYCH: AOx3, depressed mood A/P: 45M PMH EtOH use disorder, bipolar disorder, opiate use disorder w/ suspected Wellbutrin OD and EtoH withdrawl sx which have improved, found to have suicidal ideation pending psych evaluation and possible IMHU admission. #Acute EtOH withdrawl- improving Pt reports drinking 12beers/day. Last drink 10/26 AM. Pt tells me his tremors and sweats have improved. Feelings of anxiety persist. On CIWA protocol, thiamine, folate, B12, Serax #Bipolar disorder Takes Wellbutrin at home Hold Wellbutrin, pending psych eval Psych on Consult #Suspected intentional Wellbutrin OD, SI Pt has one to one sitter. On telemetry EKG NSR (10/26). Repeat EKG NSR bradycardia Psych on consult #BPH On Tamulosin #Hypothyroidism On Levothyroxine #DVT Prophylaxis TEDs and sequentials DISPO: possible IMHU admission, pending psych eval Activity as tolerated Regular diet VS,Fishbone, I+O VS, Fishbone, I+O Laboratory Tests 10/28/20 04:48 Vital Signs Date Time Temp Pulse Resp B/P (MAP) Pulse Ox O2 Delivery O2 Flow Rate FiO2 10/28/20 11:45 97.9 87 20 135/77 (96) 97 Room Air I&O- Last 24 Hours up to 6 AM 10/28/20 05:59 Intake Total 540 ml Output Total 450 ml Balance 90 ml [place],Betina R DO Oct 28, 2020 13:22
--- NOTE | 2020-10-28 19:24 | MHCR ---
[facility] CONSULTATION DATE: 10/28/2020 HISTORY OF PRESENT ILLNESS: This patient was seen via Telepsychiatry. The patient is a 45-year-old man with a psychiatric history of bipolar disorder and he was brought to the hospital by the police. It was suspected that he had taken an overdose of Wellbutrin, although the patient denied that he had taken any overdose, but he actually admitted with plans to overdose on verapamil to kill himself. The patient today states that he is still having suicidal thoughts. In addition, this patient has a significant problem with alcohol abuse and he has been drinking up to 12 beers a day. He has a history of seizures and delirium tremens (DTs). The patient was last hospitalized at [facility] inpatient mental health unit from 03/01/2020 to 03/02/2020. He was admitted with similar presentation, that he wanted to overdose on his blood pressure medication, that he was feeling increasingly depressed, hopeless and helpless. He had gone inpatient to a rehabilitation program for his alcohol abuse about a month prior, but was only there for 12 days because that is all his insurance would cover. He says as soon as he got discharged, he relapsed with the alcohol and he says that the same thing happened when he was discharged the last time from the psychiatric unit in February. He states that he feels very depressed and very anxious, feeling hopeless and helpless. The patient apparently has a diagnosis of bipolar disorder. He describes episodes where he becomes manic and during this time, he feels very good, so good that he does not even use drugs, he speech gets pressured and he has racing thoughts during that time. The patient was discharged on Vraylar 4.5 mg daily in February from the psychiatric unit. He followed up with his outpatient psychiatrist, Dr. Guerrero, and he actually changed the Vraylar to Latuda about two months ago, but the patient admits he only took the Latuda for about two days because he says he stopped taking his medications then. He was also discharged on Wellbutrin SR 150 mg twice a day and BuSpar 10 mg three times a day. Of note, when he was admitted to the hospital in February, he had been prescribed Xanax 1 mg three times a day, but he has a history of misusing his benzodiazepines, so he was not discharged on that. He has a history of prior psychiatric admissions, including one in January 2019 at [facility] and he is diagnosed with bipolar disorder type 1, depressed, alcohol use disorder, cocaine use disorder, angiolytic use disorder and history of benzodiazepine use disorder. PAST PSYCHIATRIC HISTORY: This is as noted above. The patient says he has never made any suicidal attempts, but he does have a history of cutting. FAMILY HISTORY: His mom and sister have depression and anxiety, but there are no suicides in the family. MEDICAL HISTORY: He has a history of: 1. Hypertension. 2. Hypercholesterolemia. 3. Hypothyroidism. 4. Cluster headaches. 5. Benign prostatic hyperplasia. ABUSE HISTORY: There is no history of any physical or sexual abuse. SUBSTANCE ABUSE HISTORY: He has a problem with abusing alcohol currently. Denies using any drugs now, but he does have a history of abusing multiple drugs, as noted above. MENTAL STATUS EXAMINATION: This patient is alert and oriented times three. Eye contact is fair. Psychomotor activity is normal. He is not psychotic, suicidal or homicidal. He is verbally spontaneous. There is no formal thought disorder noted. His mood is depressed. Affect appropriate to mood. He admits to suicidal thoughts but denies homicidal thoughts. He is not psychotic. Concentration is fair. Memory is intact. Insight and judgment is poor. DIAGNOSES: 1. Bipolar disorder type 1, depressed. 2. Alcohol use disorder. 3. History of benzodiazepine use disorder. 4. Cocaine use disorder. 5. Angiolytic use disorder. 6. Stimulant use disorder. 7. Cannabis use disorder. TREATMENT PLAN: At this point, when the patient is stable, he will be discharged to the psychiatric unit when we have a bed available for him for further evaluation and stabilization, since the patient is still acutely suicidal.
[2020-10-28] MEDS: TAMSULOSIN 0.4 MG CAP PO SCH (21:24)
[2020-10-29] MEDS: OXAZEPAM 10 MG CAP PO SCH ×4 (00:17→17:10)
[2020-10-29 03:37] VITALS: BP 153/81
[2020-10-29] MEDS: LORazepam 2 MG TAB PO PRN (03:42)
[2020-10-29 03:43] VITALS: BP 153/81
[2020-10-29 05:27] LABS: BASO # 0.1 10^3/uL (0.0-0.2); BASO % 0.7 % (0.0-1.0); EOS # 0.2 10^3/uL (0.0-0.5); EOS % 2.1 % (0.0-3.0); HEMATOCRIT 46.2 % (42.0-52.0); HEMOGLOBIN 15.9 g/dl (13.5-17.5); LYMPH # 2.7 10^3/uL (1.5-5.0); LYMPH % 32.8 % (24.0-44.0); MEAN CORPUSCULAR HEMOGLOBIN 31.8 pg (27.0-33.0); MEAN CORPUSCULAR HGB CONC 34.4 g/dl (32.0-36.5); MEAN CORPUSCULAR VOLUME 92.4 fl (80.0-96.0); MONO # 0.7 10^3/uL (0.0-0.8); MONO % 8.4 % (2.0-8.0); NEUTROPHILS # 4.4 10^3/uL (1.5-8.5); NEUTROPHILS % 54.6 % (36.0-66.0); PLATELET COUNT, AUTOMATED 184 10^3/uL (150-450); WHITE BLOOD COUNT 8.1 10^3/uL (4.0-10.0)
[2020-10-29] MEDS: HEPARIN SOD (PORCINE) 5000UNITS/ML 1ML VIAL/SYRINGE SC SCH ×2 (05:50→13:47)
[2020-10-29] MEDS: LEVOTHYROXINE 75MCG TABLET (0.075MG) PO SCH (05:50)
[2020-10-29 05:51] VITALS: BP 135/74
[2020-10-29] MEDS: SLF 3 ML SYR IV SCH ×2 (05:51→14:08)
[2020-10-29 05:53] LABS: ALBUMIN 3.3 GM/DL (3.2-5.2); ALT/SGPT 28 U/L (12-78); BILIRUBIN,TOTAL 0.2 MG/DL (0.2-1.0); BLOOD UREA NITROGEN 13 MG/DL (7-18); CALCIUM LEVEL 8.6 MG/DL (8.5-10.1); CARBON DIOXIDE LEVEL 26 MEQ/L (21-32); CHLORIDE LEVEL 111 MEQ/L (98-107); CREATININE FOR GFR 0.73 MG/DL (0.70-1.30); GLOMERULAR FILTRATION RATE > 60.0 (>60); GLUCOSE, FASTING 85 MG/DL (70-100); MAGNESIUM LEVEL 2.1 MG/DL (1.8-2.4); POTASSIUM SERUM 3.8 MEQ/L (3.5-5.1); SODIUM LEVEL 141 MEQ/L (136-145); TOTAL PROTEIN 6.2 GM/DL (6.4-8.2)
[2020-10-29 08:00] VITALS: BP 135/74
[2020-10-29] MEDS: NICOTINE 21MG/24HR 1 EA TRANSDERMAL TD SCH (08:23)
[2020-10-29] MEDS: DOCUSATE SODIUM 100MG CAPSULE PO SCH (08:23)
[2020-10-29 08:24] VITALS: BP 135/74
[2020-10-29] MEDS: MULTIVITAMINS/MINERALS THERAP 1 TAB PO SCH (08:24)
[2020-10-29] MEDS: THIAMINE 100 MG TAB PO SCH (08:24)
[2020-10-29] MEDS: IRBESARTAN 150MG TAB PO SCH (08:24)
[2020-10-29] MEDS: FOLIC ACID 1 MG TAB PO SCH (08:24)
--- NOTE | 2020-10-29 11:46 | IPNPDOC ---
Text Note Date of Service The patient was seen on 10/29/20. NOTE SUBJECTIVE: Patient was seen and examined this morning at bedside. He states he is feeling well without any complaints. He does continue to feel depressed with suicidal thoughts. He denies any plan to harm himself or others. OBJECTIVE: VITAL SIGNS: See below GENERAL: Alert, comfortable, in no acute distress HEENT: Normocephalic, atraumatic, moist mucous membranes NECK: Supple, trachea midline CARDIOVASCULAR: Regular rate and rhythm, normal S1 and S2. No murmurs, rubs, or gallops RESPIRATORY: Clear to auscultation bilaterally with equal air entry bilaterally. No wheezing, rhonchi, or rales. ABDOMEN: Soft, nontender, nondistended, bowel sounds present. EXTREMITIES: No edema. Pulses 2+/4 in bilateral upper and lower extremities NEUROLOGIC: Alert and oriented x3 to person, place and time. No focal deficits appreciated PSYCHIATRIC: Mood and affect appropriate ASSESSMENT/PLAN: 45 year old male with a history of alcohol use disorder, bipolar depression, opiate use disorder who presented with SI after possible OD on Wellbutrin, found to be in alcohol withdrawal, admitted for observation per poison control, treatment of withdrawal, and psych consult # Alcohol withdrawal - symptomatically stable - continue CIWA with prn Ativan - continue serax 20mg q6h - continue supplement with multivitamin, folic acid, and thiamine # Bipolar disorder - hold wellbutrin given possible OD - eval and treatment per psychiatry # SI with possible OD with Wellbutrin - monitored per poison control, now medically cleared - psych eval by Dr. Chang, recommended [facility] admission pending bed availability - continue suicide precautions with sitter # Nicotine use disorder - nicotine patch daily # HTN - continue home irbesartan # BPH - continue home flomax # Hypothyroidism - continue home levothyroxine DVT prophylaxis: teds and sequentials, pt is ambulatory Disposition: pending availability for [facility] admission ADDENDUM: Patient was discharged this afternoon as a bed became available in [facility]. Please see D/C summary. VS,Fishbone, I+O VS, Fishbone, I+O Laboratory Tests 10/29/20 04:57 Vital Signs Date Time Temp Pulse Resp B/P (MAP) Pulse Ox O2 Delivery O2 Flow Rate FiO2 10/29/20 08:24 135/74 10/29/20 05:51 98.8 57 20 97 Room Air I&O- Last 24 Hours up to 6 AM 10/29/20 05:59 Intake Total 1140 ml Output Total 1975 ml Balance -835 ml ARMAAN MONTERO D.O. Oct 29, 2020 11:43
[2020-10-29 12:41] VITALS: BP 146/80
[2020-10-29] MEDS ORDERED: NICO21PAT TD (13:25)
--- NOTE | 2020-10-29 17:03 | DS.PDOC ---
Discharge Summary General Date of Admission Oct 26, 2020 at 19:58 Date of Discharge October 29, 2020 Primary Care Physician: NEYMAR VARNER MD Attending Physician: RO BUCKNER MD Discharge Summary PROCEDURES PERFORMED DURING STAY: [None]. ADMITTING DIAGNOSES: ETOH withdrawal Bipolar disorder Suicidal ideation with suspected intentional OD wellbutrin HLD BPH GERD Hypothyroidism Renal cyst DISCHARGE DIAGNOSES: ETOH withdrawal Bipolar disorder Suicidal ideation with suspected intentional OD wellbutrin HLD BPH GERD Hypothyroidism Renal cyst COMPLICATIONS/CHIEF COMPLAINT: Overdose,Alcohol Withdrawl,Suicidal Ideation. HISTORY OF PRESENT ILLNESS: 45 year old male who presented to the ED via EMS for suspected drug OD with Wellbutrin as well as alcohol withdrawal symptoms. The patient reported a history of alcohol withdrawal with DTs and seizure in the past. The patient reported drinking about 12 beers daily and his last drink was at 9 am that morning. He denied taking wellbutrin on presentation, but was known to have recently filled a new prescription for this. He did admit to on presentation and reported he was planning to OD on his verapamil. Patient reported tremulousness and anxiety, which he attributed to alcohol withdrawal. Poison control center recommending admission for observation of possible wellbutrin overdose. HOSPITAL COURSE: Patient was admitted to the hospital and kept on telemetry for monitoring. Repeat EKG was ordered for the next morning and was stable when compared to EKG on admission. The patient did not develop any further symptoms. He was kept on suicide precautions with a sitter during his admission. He was mo nitoring for electrolyte abnormalities and did not develop any that required treatment. He was also kept on CIWA protocol with prn Ativan, started on scheduled Serax, and started on supplementation with multivitamin, thiamine, and folate for his alcohol withdrawal. When the patient was medically cleared from the possible wellbutrin OD, psychiatry was consulted for evaluation. Dr. Chang recommended inpatient mental health admission. The patient was discharged directly to [facility]. He also expressed interested in alcohol rehab programs after he is discharged from [facility]. DISCHARGE MEDICATIONS: Please see below. ALLERGIES: Please see below. PHYSICAL EXAMINATION ON DISCHARGE: VITAL SIGNS: Please see below. GENERAL: Alert, comfortable, in no acute distress HEENT: Normocephalic, atraumatic, moist mucous membranes NECK: Supple, trachea midline CARDIOVASCULAR: Regular rate and rhythm, normal S1 and S2. No murmurs, rubs, or gallops RESPIRATORY: Clear to auscultation bilaterally with equal air entry bilaterally. No wheezing, rhonchi, or rales. ABDOMEN: Soft, nontender, nondistended, bowel sounds present. EXTREMITIES: No edema. Pulses 2+/4 in bilateral upper and lower extremities NEUROLOGIC: Alert and oriented x3 to person, place and time. No focal deficits appreciated PSYCHIATRIC: Mood and affect appropriate LABORATORY DATA: Please see below. IMAGING: None PROGNOSIS: Fair ACTIVITY: As tolerated. DIET: As tolerated. DISCHARGE PLAN/DISPOSITION: Patient with be admitted to [facility] for further care. DISCHARGE INSTRUCTIONS: Follow up with PCP in 7-10 days DISCHARGE CONDITION: Stable. TIME SPENT ON DISCHARGE: 35 minutes. Vital Signs/I&Os Vital Signs Date Time Temp Pulse Resp B/P (MAP) Pulse Ox O2 Delivery O2 Flow Rate FiO2 10/29/20 12:41 98.5 50 20 146/80 (102) 97 Room Air I&O- Last 24 Hours up to 6 AM 10/29/20 06:00 Intake Total 780 ml Output Total 1700 ml Balance -920 ml Laboratory Data Labs 24H Laboratory Tests 2 10/29/20 04:57: Immature Granulocyte % (Auto) 1.4, Neutrophils (%) (Auto) 54.6, Lymphocytes (%) (Auto) 32.8, Monocytes (%) (Auto) 8.4H, Eosinophils (%) (Auto) 2.1, Basophils (%) (Auto) 0.7, Neutrophils # (Auto) 4.4, Lymphocytes # (Auto) 2.7, Monocytes # (Auto) 0.7, Eosinophils # (Auto) 0.2, Basophils # (Auto) 0.1, Nucleated Red Blood Cells % (auto) 0.0, Anion Gap 4L, Glomerular Filtration Rate > 60.0, Lew cium Level 8.6, Magnesium Level 2.1, Total Bilirubin 0.2, Aspartate Amino Transf (AST/SGOT) 11, Alanine Aminotransferase (ALT/SGPT) 28, Alkaline Phosphatase 94, Total Protein 6.2L, Albumin 3.3, Albumin/Globulin Ratio 1.1 CBC/BMP Laboratory Tests 10/29/20 04:57 Microbiology Microbiology 10/26/20 Respiratory Virus Panel (PCR) ([facility]X) - Final, Complete Discharge Medications Scheduled Bupropion Hcl (Bupropion HCl Sr) 100 Mg Tab.sr.12h, 100 MG PO BID, (Reported) Irbesartan (Irbesartan) 150 Mg Tablet, 150 MG PO DAILY, (Reported) Levothyroxine Sodium (Levothyroxine Sodium) 75 Mcg Tablet, 75 MCG PO DAILY, (Reported) Lurasidone HCl (Latuda) 80 Mg Tablet, 80 MG PO QPM, (Reported) Nicotine (Nicotine Patch) 21 Mg Patch.td24, 1 PATCH TD DAILY Tamsulosin HCl (Flomax) 0.4 Mg Capsule, 0.4 MG PO QPM, (Reported) Scheduled PRN Alprazolam (Alprazolam) 1 Mg Tablet, 1 MG PO TID PRN for ANXIETY, (Reported) Sumatriptan Succinate (Sumatriptan Succinate) 4 Mg/0.5 Ml Cartridge, 4 MG SC BID PRN for MIGRAINE, (Reported) Allergies Coded Allergies: No Known Allergies (Verified Allergy, Unknown, 01/30/19) ARMAAN MONTERO D.O. Oct 29, 2020 17:03
== END 2020-10-29 17:17 | DRG 918 ==
LOC: M ED 17:29 → M ED INP 19:58 → ENRESERV 10-27 06:43 → M PCU 10-27 08:37
PROVIDERS: ADMIT Family Medicine; ATTEND Internal Medicine
DX: T43.292A Poisoning by other antidepressants, intentional self-harm, initial encounter (principal); F10.139 Alcohol abuse with withdrawal, unspecified; E03.9 Hypothyroidism, unspecified; K21.9 Gastro-esophageal reflux disease without esophagitis; F31.9 Bipolar disorder, unspecified; L71.9 Rosacea, unspecified; F11.10 Opioid abuse, uncomplicated; E78.5 Hyperlipidemia, unspecified; G44.009 Cluster headache syndrome, unspecified, not intractable; N40.0 Benign prostatic hyperplasia without lower urinary tract symptoms; G40.909 Epilepsy, unspecified, not intractable, without status epilepticus; N28.1 Cyst of kidney, acquired; F17.200 Nicotine dependence, unspecified, uncomplicated; N52.9 Male erectile dysfunction, unspecified; B00.9 Herpesviral infection, unspecified; Z79.899 Other long term (current) drug therapy; F14.10 Cocaine abuse, uncomplicated; F15.10 Other stimulant abuse, uncomplicated; F19.10 Other psychoactive substance abuse, uncomplicated; F12.10 Cannabis abuse, uncomplicated

== ENCOUNTER 2020-10-29 13:32 | Inpatient (IN) | payer MEDICARE ==
[~2020-10-29 13:32] MED LIST changes: +BUPR100T3 PO; +LATU80TA PO; +NICO21PAT TD
[2020-10-29] MEDS ORDERED: ACETAMINOPHEN TAB 650MG DOSE (2X325MG) PO PRN (14:30)
[2020-10-29] MEDS ORDERED: MOM 30ML SUSPENSION UDC PO PRN (14:30)
[2020-10-29] MEDS ORDERED: MAALOX 30 ML SUSP *UDC PO PRN (14:30)
[2020-10-29 17:24] VITALS: BP 139/75
[2020-10-29] MEDS: LORazepam 2 MG TAB PO PRN (18:24)
[2020-10-29] MEDS: THIAMINE 100 MG TAB PO SCH (18:26)
[2020-10-29 21:00] VITALS: BP 174/105
[2020-10-29 21:02] VITALS: BP 174/105
[2020-10-29] MEDS: traZODone 50 MG TAB PO PRN (21:14)
[2020-10-29 23:30] VITALS: BP 152/92
[2020-10-30] VITALS (7 sets, daily range): BP systolic 143–152; BP diastolic 71–84
[2020-10-30] MEDS: LEVOTHYROXINE 75MCG TABLET (0.075MG) PO SCH (06:00)
[2020-10-30] MEDS: MULTIVITAMINS/MINERALS THERAP 1 TAB PO SCH (08:48)
[2020-10-30] MEDS: FOLIC ACID 1 MG TAB PO SCH (08:48)
[2020-10-30] MEDS: THIAMINE 100 MG TAB PO SCH ×2 (08:48→20:22)
[2020-10-30] MEDS: NICOTINE POLACRILEX 2 MG GUM PO PRN ×3 (08:55→20:27)
[2020-10-30] MEDS ORDERED: buPROPion 100 MG TAB PO SCH (09:00)
[2020-10-30] MEDS: buPROPion (WELLBUTRIN SR) 100 MG SR TAB PO SCH ×2 (09:00→20:22)
[2020-10-30] MEDS ORDERED: HOME MED LIST COMPLETE! XX SCH (09:40)
[2020-10-30] MEDS ORDERED: IBUPROFEN 200MG TAB PO PRN (10:15)
[2020-10-30] MEDS ORDERED: IBUPROFEN 600MG TAB PO PRN (10:15)
[2020-10-30] MEDS: IRBESARTAN 150MG TAB PO SCH ×2 (10:35→10:36)
[2020-10-30] MEDS ORDERED: buPROPion (WELLBUTRIN SR) 100 MG SR TAB PO SCH (11:50)
--- NOTE | 2020-10-30 12:15 | MHHPEPDOC ---
General Date Of Admission: Oct 29, 2020 Legal Status: 9.39 Chief Complaint I did not take my medicine for 2 months I was drinking heavy and not been feeling very depressed ". History of Present Illness HISTORY OF THE PRESENT ILLNESS: Patient is a 45 -year-old , male, who [ was transferred from medicine after he was stabilized for acute alcohol withdrawal due to severe depression and suicidal thoughts. Patient has a long history of polysubstance abuse including opiate abuse in the past and ongoing alcohol abuse but also has a history of possible bipolar disorder with many previous admissions last discharge in February 2020. Patient stated that he has been seeing a private psychiatrist and was prescribed Wellbutrin Latuda and Xanax but really has not been taking his medications and has been drinking quite heavily for the past 2 months. He was having increasing withdrawal symptoms and had a hypertensive crisis and was admitted to medicine 3 days ago and medically stabilized and transferred for psychiatric stabilization. Patient stated that he has been feeling increasingly depressed especially after he stopped taking his Wellbutrin and Latuda. He used to take lithium with a very good control of his mood swings but had to stop due to developing hypothyroidism. He reports poor response to other mood stabilizers and did not do very well with risperidone and Zyprexa but had a fair relief with the Latuda and Wellbutrin but for some reason has not been taking it for 2 months. He is denying any hallucination or paranoia and denies any active suicidal plan or intent but admits to feeling hopeless helpless and having vague suicidal thoughts and also could not stop drinking. He is reporting feeling anxious depressed but denies any current suicidal plan or intent and is hoping to get re started on his medications and possibly have inpatient alcohol rehabilitation service.]. Psychiatric Review of Systems Depression (2 or more weeks): depressed mood, feelings of worthlesness, decreased energy, difficulty concentrating, suicidal thoughts Nicole (4 or more days of): denies Psychosis: denies PTSD: denies Anxiety: gen/non-specific anxiety, stressor related anxiety Past Psychiatric History Previous Psychiatric Diagnosis: Bipolar disorder. Major depressive disorder. OCD. Previous Psychiatric Admissions: Been hospitalized at [facility] for 3 times last discharge March 09. Suicide Attempts: [No known history of suicidal attempt]. Psychiatric Follow-up: Seeing private psychiatrist Dr. Diego was taking Wellbutrin and Latuda]. Psychiatric medications: Poor response to many other antidepressant medicine. Past Medical History Medical Problems Has hypothyroidism HLD GERD BPH had a seizure episode from DT Head Injury: No Seizures: Yes (From alcohol withdrawal) Hospitalizations: Yes Surgeries: No Family Medical/Psychiatric HX Medical Problems Noncontributory Psychiatric Disorders: No Addiction: No Suicide Attemps/Completions: No Addiction History alcohol, cocaine, opioids, other (Admits that he is a polysubstance dependent) Social History Childhood: [Born in this area]. Abuse/Trauma:[Denies any history of abuse]. Current Living Situation: [Lives alone]. Education: [Has a degree in psychology]. Employment: [On SSD]. Social Support: [Minimal]. Legal: Denies any legal history. Marital: . Was but has 2 children with their mother has very little contact Mental Status Examination General Appearance: appears stated age Build: average Demeanor: average Eye Contact: average Activity: average Behavior: cooperative Speech: clear, slow, low in volume, normal volume Mood: depressed, anxious Mood Moderately depressed feeling hopeless helpless but denies any active suicidal plan Thought Process: logical/linear Thought Content (Delusions): none reported Thought Content (Other): none reported Thought Content (Aggressive): none reported Perception (Hallucinations): none reported Perception (Other): none reported Cognition (Impairment of): none reported Cognition(Intelligence Est.): average Oriented: Awake, Alert, Oriented times three Insight: fair Judgment: Poor Psychosis: Denies Diagnoses Major depression recurrent alcohol use disorder and polysubstance abuse A-FIB/CHADSVASC A-FIB History Current/History of A-Fib/PAF?: No Current PO Anticoag Therapy: No Age/Risk Factor Scoring CHADSVASC: CHADSVASC Response (Comments) Value Age Risk Factor Age < 65 years old 0 Gender Risk Factor Male 0 Hx of CHF No 0 Hx of HTN No 0 Hx of Stroke/TIA/or VTE No 0 Hx of Diabetes No 0 Hx of Vascular Disease No 0 Total 0 Treatment Treatment ordered: NONE Assessment Moderately depressed with ongoing alcohol abuse patient denies any previous suicidal plan or intent but reports feeling hopeless helpless and seeking help we will restart his antidepressant medications and supportive therapy to stabilize. Patient wants to go to inpatient rehab but states that his insurance would only cover for 10 days and does not feel that it would be worthwhile. Initial Treatment Plan 1. Patient was admitted on a 9.39 status. 2. Complete history was obtained. 3. With patients permission, family will be contacted and database will be expanded. 4. Patients medication regimen will be reviewed and changed accordingly. 5. Patient will be provided with protected environment. 6. Patient will be treated with individual, group, and milieu therapies. 7. Patient will receive supportive psych-education. 8. Discharge planning will commence immediately. 9. Outpatient follow-up treatment will be strongly recommended. 10. The initial treatment plan will focus initially on: * Depression. * Risk for suicide. ESTIMATED LENGTH OF STAY: 5-7 DAYS. TIME SPENT COUNSELING AND COORDINATING INITIAL CARE: 40 minutes. Tobacco Cessation Screen If Patient is a Smoker Smoker Tobacco Cessation Tx Ordered?: Yes Complete/Results docum. Vital Signs Vital Signs Date Time Temp Pulse Resp B/P (MAP) Pulse Ox O2 Delivery O2 Flow Rate FiO2 10/30/20 10:35 148/77 10/30/20 08:44 50 10/30/20 06:32 97.9 18 98 Room Air Medications Scheduled Bupropion Hcl (Bupropion HCl Sr) 100 Mg Tab.sr.12h, 100 MG PO BID, (Reported) Irbesartan (Irbesartan) 150 Mg Tablet, 150 MG PO DAILY, (Reported) Levothyroxine Sodium (Levothyroxine Sodium) 75 Mcg Tablet, 75 MCG PO DAILY, (Reported) Lurasidone HCl (Latuda) 80 Mg Tablet, 80 MG PO QPM, (Reported) Nicotine (Nicotine Patch) 21 Mg Patch.td24, 1 PATCH TD DAILY Tamsulosin HCl (Flomax) 0.4 Mg Capsule, 0.4 MG PO QPM, (Reported) Scheduled PRN Alprazolam (Alprazolam) 1 Mg Tablet, 1 MG PO TID PRN for ANXIETY, (Reported) Sumatriptan Succinate (Sumatriptan Succinate) 4 Mg/0.5 Ml Cartridge, 4 MG SC BID PRN for MIGRAINE, (Reported) Allergies Coded Allergies: No Known Allergies (Verified Allergy, Unknown, 01/30/19) DELVIS GARAY M.D. Oct 30, 2020 12:15
--- NOTE | 2020-10-30 14:31 | HPEPDOC ---
[facility] Medical History & Physical Date of Admission Oct 30, 2020 Date of Service: Oct 30, 2020 History and Physical Chief complaint: Wellbutrin overdose and suicidal ideation History of present illness: 45 year old male who presented to the ED via EMS for suspected drug OD with Wellbutrin as well as alcohol withdrawal symptoms. The patient reported a history of alcohol withdrawal with DTs and seizure in the past. The patient reported drinking about 12 beers daily and his last drink was at 9 am that morning. He denied taking wellbutrin on presentation, but was known to have recently filled a new prescription for this. He did admit to on presentation and reported he was planning to OD on his verapamil. Patient reported tremulousness and anxiety, which he attributed to alcohol withdrawal. Poison control center recommending admission for observation of possible wellbutrin overdose. Patient was admitted to the hospital and kept on telemetry for monitoring. Repeat EKG was ordered for the next morning and was stable when compared to EKG on admission. The patient did not develop any further symptoms. He was kept on suicide precautions with a sitter during his admission. He was monitoring for electrolyte abnormalities and did not develop any that required treatment. He was also kept on CIWA protocol with prn Ativan, started on scheduled Serax, and started on supplementation with multivitamin, thiamine, and folate for his alcohol withdrawal. When the patient was medically cleared from the possible wellbutrin OD, psychiatry was consulted for evaluation. Dr. Chang recommended inpatient mental health admission. The patient was discharged directly to [facility]. He also expressed interested in alcohol rehab programs after he is discharged from [facility]. Family history. Hypertension. Social history. Occasional smoker. Denies any drug abuse. Denies any recreational drug use. Past medical history: Bipolar disorder Suicidal ideation with suspected intentional OD wellbutrin HLD BPH GERD Hypothyroidism Renal cyst Past surgical history none as per patient Review of systems. Pertinent positive findings as per HPI and is negative PHYSICAL EXAMINATION: General: The patient is awake, alert, oriented x3, sitting up in the bed in no apparent distress. Head and Neck Exam: Extraocular muscles intact. Pupils equally round and reactive to light. Mucous membranes are moist. Neck is supple. There is no jugular venous distention (JVD). Cardiovascular: S1 and S2, regular rate. No real edema Respiratory: Clear auscultation Abdomen: Soft. Positive bowel sounds. Nontender. No organomegaly. Genitourinary: Deferred Musculoskeletal: Clubbing of the fingernails, no cyanosis was noted. 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 Power is 5/5 in all extremities. Medications reviewed Radiology reviewed Assessment and plan 45 year old male who presented to the ED via EMS for suspected drug OD with Wellbutrin as well as alcohol withdrawal symptoms. He was also having suicidal ideation. 1. Suicidal ideation. Management is per psychiatry. Patient has a history of depression and will be following up with psychiatry as an outpatient. 2. Wellbutrin overdose. No systemic effects and has been resolved. The patient was medically optimized and discharged. I am H, U. 3. Alcohol abuse. Continue counseling and treatment as per psychiatric. Diet as per psychiatric Thank so much for consulting us on this patient Vital Signs Vital Signs Date Time Temp Pulse Resp B/P (MAP) Pulse Ox O2 Delivery O2 Flow Rate FiO2 10/30/20 10:35 148/77 10/30/20 08:44 50 10/30/20 06:32 97.9 18 98 Room Air Home Medications Scheduled Bupropion Hcl (Bupropion HCl Sr) 100 Mg Tab.sr.12h, 100 MG PO BID Irbesartan (Irbesartan) 150 Mg Tablet, 150 MG PO DAILY Levothyroxine Sodium (Levothyroxine Sodium) 75 Mcg Tablet, 75 MCG PO DAILY Lurasidone HCl (Latuda) 80 Mg Tablet, 80 MG PO QPM Nicotine (Nicotine Patch) 21 Mg Patch.td24, 1 PATCH TD DAILY Tamsulosin HCl (Flomax) 0.4 Mg Capsule, 0.4 MG PO QPM Scheduled PRN Alprazolam (Alprazolam) 1 Mg Tablet, 1 MG PO TID PRN for ANXIETY Sumatriptan Succinate (Sumatriptan Succinate) 4 Mg/0.5 Ml Cartridge, 4 MG SC BID PRN for MIGRAINE Allergies Coded Allergies: No Known Allergies (Verified Allergy, Unknown, 01/30/19) A-FIB/CHADSVASC A-FIB History Current/History of A-Fib/PAF?: No Current PO Anticoag Therapy: No Age/Risk Factor Scoring CHADSVASC: CHADSVASC Response (Comments) Value Age Risk Factor Age < 65 years old 0 Gender Risk Factor Male 0 Hx of CHF No 0 Hx of HTN No 0 Hx of Stroke/TIA/or VTE No 0 Hx of Diabetes No 0 Hx of Vascular Disease No 0 Total 0 RO BUCKNER MD Oct 30, 2020 14:31
[2020-10-30] MEDS: PARoxetine 20MG TABLET PO SCH (16:54)
[2020-10-30] MEDS: LURASIDONE HCL 40 MG TAB (LATUDA) PO SCH (16:54)
[2020-10-30] MEDS: traZODone 50 MG TAB PO PRN (20:22)
[2020-10-30] MEDS: TAMSULOSIN 0.4 MG CAP PO SCH (20:22)
[2020-10-30] MEDS: LORazepam 2 MG TAB PO PRN (22:12)
[2020-10-31 02:00] VITALS: BP 151/88
[2020-10-31] MEDS: LEVOTHYROXINE 75MCG TABLET (0.075MG) PO SCH (05:53)
[2020-10-31 06:29] VITALS: BP 120/78
[2020-10-31] MEDS: MULTIVITAMINS/MINERALS THERAP 1 TAB PO SCH (08:44)
[2020-10-31] MEDS: FOLIC ACID 1 MG TAB PO SCH (08:44)
[2020-10-31] MEDS: buPROPion (WELLBUTRIN SR) 100 MG SR TAB PO SCH ×2 (08:44→20:02)
[2020-10-31] MEDS: PARoxetine 20MG TABLET PO SCH (08:44)
[2020-10-31] MEDS: THIAMINE 100 MG TAB PO SCH ×2 (08:44→20:02)
[2020-10-31] MEDS: IRBESARTAN 150MG TAB PO SCH (08:45)
[2020-10-31] MEDS: NICOTINE POLACRILEX 2 MG GUM PO PRN ×2 (08:45→14:45)
[2020-10-31 10:00] VITALS: BP 124/72
[2020-10-31] MEDS: hydrOXYzine 50 MG TAB PO PRN ×2 (10:28→16:55)
--- NOTE | 2020-10-31 11:31 | MHIPNPDOC ---
[facility] Progress Note Progress Note DATE OF SERVICE: 10/31/20 Patient was started on Paxil 20 mg along with his Wellbutrin due to report of his good response in the past with that combination. He is also tolerating Latuda without any complaint of side effect. He took shower and appears less disheveled and is alert awake and in good control. He is not showing any acute alcohol withdrawal symptoms but states that he is feeling very anxious and somewhat restless and is asking for anxiety medicine with some med seeking behavior. He has been taking Xanax even while he was drinking prescribed by his psychiatrist because he did not tell him that he was actively drinking. We will give him Atarax as needed for anxiety and continue with the [facility] protocol. He has been referred to inpatient alcohol rehab and he is willing to cooperate. HISTORY:. VITAL SIGNS: See below. NEW TEST RESULTS:. CURRENT MEDICATIONS: See below. MENTAL STATUS EXAMINATION: Patient is a 45-year old male, who is in no acute distress. Speech: Is pressured but rational coherent. Language skills are good. Thought processes including: Fair. Thought content: Denies any psychotic symptoms. Abstract reasoning, and computation:. Description of associations: Organized. Description of abnormal or psychotic thoughts: Denies any hallucination or paranoia. Judgment: Fair. Insight: Fair. Orientation: Oriented. Recent and remote memory: No confusion. Attention span and concentration:. Language:. Fund of knowledge:. Mood: Moderately anxious and depressed. Affect: Appropriate. DIAGNOSES: 1.. Major depression recurrent. Rule out bipolar disorder depressed 2.. Polysubstance abuse. And alcohol use disorder continues 3... ASSESSMENT: Moderately anxious but fully cooperating MANAGEMENT PLAN: Stabilized with the medicine and possible inpatient rehab treatment. TIME SPENT: 15 minutes. Vital Signs Vital Signs Date Time Temp Pulse Resp B/P (MAP) Pulse Ox O2 Delivery O2 Flow Rate FiO2 10/31/20 08:45 120/78 10/31/20 06:29 99.0 52 16 97 Room Air Current Medications Current Medications Medications (Trade) Dose Ordered Sig/Sharla Route PRN Reason Start Time Stop Time Status Last Admin Dose Admin Acetaminophen (Tylenol Tab) 650 mg Q6HP PRN PO HEADACHE or MILD DISCOMFORT 10/29/20 14:30 10/30/20 10:14 DC Al Hydrox/Mg Hydrox/Simethicone (Mylanta) 30 ml Q4HP PRN PO HEARTBURN/INDIGESTION 10/29/20 14:30 Bupropion HCl (Wellbutrin Sr) 100 mg BID PO 10/30/20 09:00 10/31/20 08:44 Bupropion HCl (Wellbutrin Sr) 100 mg BID PO 10/30/20 11:50 10/30/20 11:51 DC Bupropion HCl (Wellbutrin) 100 mg BID PO 10/30/20 09:00 10/30/20 11:50 DC Folic Acid (Folic Acid) 1 mg DAILY PO 10/30/20 09:00 10/31/20 08:44 Home Med (Home Med List Complete!) ASDIRECTED XX 10/30/20 09:40 10/30/20 09:41 DC Hydroxyzine HCl (Atarax) 50 mg Q6HP PRN PO anxiety 10/31/20 10:25 10/31/20 10:28 Ibuprofen (Advil) 200 mg Q6HP PRN PO PAIN LEVEL 1-5 10/30/20 10:15 10/30/20 10:17 DC Ibuprofen (Advil) 600 mg Q6HP PRN PO MODERATE PAIN (PS 5-7) 10/30/20 10:15 Irbesartan (Avapro) 150 mg DAILY PO 10/30/20 09:00 10/31/20 08:45 Levothyroxine Sodium (Synthroid) 75 mcg DAILY@06 PO 10/30/20 06:00 10/31/20 05:53 Lorazepam (Ativan) 2 mg ASDIRECTED PRN PO SEE PROTOCOL 10/29/20 17:15 10/30/20 22:12 Lurasidone HCl (Latuda) 80 mg DAILY@18 PO 10/30/20 18:00 10/30/20 16:54 Magnesium Hydroxide (Milk Of Magnesia) 30 ml DAILYPRN PRN PO CONSTIPATION 10/29/20 14:30 Multivitamins (Theragram-M) 1 tab DAILY PO 10/30/20 09:00 10/31/20 08:44 Nicotine (Nicorette) 2 mg Q4HP PRN PO NICOTINE WITHDRAWAL 10/29/20 20:15 10/31/20 08:45 Paroxetine HCl (PAXil) 20 mg DAILY PO 10/30/20 17:00 10/31/20 08:44 Tamsulosin HCl (Flomax) 0.4 mg QHS PO 10/30/20 21:00 10/30/20 20:22 Thiamine HCl (Thiamine HCl) 100 mg BID PO 10/29/20 18:00 11/01/20 09:01 10/31/20 08:44 Trazodone HCl (Desyrel) 50 mg QHSP PRN PO INSOMNIA 10/29/20 14:30 10/30/20 20:22 Allergies Coded Allergies: No Known Allergies (Verified Allergy, Unknown, 01/30/19) DELVIS GARAY M.D. Oct 31, 2020 11:31
[2020-10-31] MEDS: LURASIDONE HCL 40 MG TAB (LATUDA) PO SCH (17:00)
[2020-10-31 17:19] VITALS: BP 148/84
[2020-10-31] MEDS: traZODone 50 MG TAB PO PRN (20:02)
[2020-10-31] MEDS: TAMSULOSIN 0.4 MG CAP PO SCH (20:02)
[2020-10-31 20:17] VITALS: BP 130/79
[2020-10-31 20:18] VITALS: BP 130/79
[2020-11-01] MEDS: LEVOTHYROXINE 75MCG TABLET (0.075MG) PO SCH (06:21)
[2020-11-01 07:18] VITALS: BP 126/72
[2020-11-01] MEDS: NICOTINE POLACRILEX 2 MG GUM PO PRN ×4 (07:38→21:00)
[2020-11-01] MEDS: hydrOXYzine 50 MG TAB PO PRN ×2 (08:03→19:35)
[2020-11-01] MEDS: PARoxetine 20MG TABLET PO SCH (08:03)
[2020-11-01] MEDS: IRBESARTAN 150MG TAB PO SCH (08:03)
[2020-11-01] MEDS: buPROPion (WELLBUTRIN SR) 100 MG SR TAB PO SCH ×2 (08:03→20:34)
[2020-11-01] MEDS: LURASIDONE HCL 40 MG TAB (LATUDA) PO SCH (17:04)
[2020-11-01 17:24] VITALS: BP 138/72
[2020-11-01] MEDS: TAMSULOSIN 0.4 MG CAP PO SCH (20:35)
[2020-11-01] MEDS: traZODone 50 MG TAB PO PRN (21:00)
[2020-11-01] MEDS ORDERED: IBUPROFEN 200MG TAB PO ONE (21:10)
[2020-11-01] MEDS ORDERED: IBUPROFEN 400MG TAB PO ONE (21:30)
[2020-11-02] MEDS: LEVOTHYROXINE 75MCG TABLET (0.075MG) PO SCH (06:12)
[2020-11-02 06:45] VITALS: BP 142/79
[2020-11-02] MEDS: PARoxetine 20MG TABLET PO SCH (08:55)
[2020-11-02] MEDS: buPROPion (WELLBUTRIN SR) 100 MG SR TAB PO SCH ×2 (08:56→20:19)
[2020-11-02] MEDS: IRBESARTAN 150MG TAB PO SCH (08:56)
[2020-11-02] MEDS: hydrOXYzine 50 MG TAB PO PRN (10:39)
[2020-11-02] MEDS: busPIRone 5 MG TAB PO SCH ×2 (12:21→20:19)
[2020-11-02] MEDS: NICOTINE POLACRILEX 2 MG GUM PO PRN ×2 (13:11→17:52)
[2020-11-02] MEDS: LURASIDONE HCL 40 MG TAB (LATUDA) PO SCH (17:52)
[2020-11-02 18:24] VITALS: BP 122/56
[2020-11-02] MEDS: traZODone 50 MG TAB PO PRN (20:19)
[2020-11-02] MEDS: TAMSULOSIN 0.4 MG CAP PO SCH (20:19)
[2020-11-03] MEDS: LEVOTHYROXINE 75MCG TABLET (0.075MG) PO SCH (06:17)
[2020-11-03 06:53] VITALS: BP 144/72
[2020-11-03] MEDS: buPROPion (WELLBUTRIN SR) 100 MG SR TAB PO SCH ×2 (08:42→20:33)
[2020-11-03] MEDS: busPIRone 5 MG TAB PO SCH ×2 (08:42→20:33)
[2020-11-03] MEDS: NICOTINE POLACRILEX 2 MG GUM PO PRN ×3 (08:42→19:45)
[2020-11-03] MEDS: PARoxetine 20MG TABLET PO SCH (08:42)
[2020-11-03] MEDS: IRBESARTAN 150MG TAB PO SCH (08:43)
--- NOTE | 2020-11-03 10:19 | MHIPN ---
[facility] PROGRESS NOTE DATE: 11/01/2020 VITAL SIGNS: Blood pressure 126/72, pulse 66, temperature 97.9. This is a video assessment, he is at the inpatient psychiatry unit, I am at home, he is aware of the video assessment, and its limitations, and agrees to it. CHIEF COMPLAINT: Feels anxious. SUBJECTIVE: Seen for followup. Indicates has been doing better, but is anxious, says he is not quite where he thinks he ought to be, but feels this is because he just stopped drinking. Has been diagnosed with bipolar disorder, as well as obsessive compulsive disorder, he says. Has used Paxil in the past, as well as Wellbutrin, Wellbutrin at a higher dose, at 150 mg twice a day. Currently, he is on 100 mg twice a day, says has not been using his medications for several months, and had just resumed them. Currently, he denies any cravings. Feels somewhat restless at times. Denies any suicidal thoughts or intents. MENTAL STATUS EXAMINATION: He is neat, he is cooperative, no agitation, no psychomotor retardation, speech is somewhat rapid, but coherent, no formal thought disorder. Affect is reactive, fairly broad, appears mildly anxious. Vague on suicidal thoughts, no plans, no homicidal ideas or intents, currently no evidence of any psychosis. Cognition grossly intact, judgment and insight compromised. ASSESSMENT: Bipolar disorder, current episode depressed. The other possibilities include: Major depressive disorder, recurrent. Polysubstance use disorder. Alcohol use disorder. PLAN: Continue current care, but I would hold off on increasing the Wellbutrin, the previous dose of 150 mg twice a day for now, until matters are more stable. Has been started on Latuda, recently, is on 80 mg, and that is expected to be the mainstay, as a mood stabilizer. It is preferable avoiding any increase in the Paxil until mood is more stable, as antidepressants may exacerbate mood instability. I would suggest encouraging him to participate in activities in the unit as tolerated. Will continue current precautions. Further recommendations will be made depending on the clinical picture. The assessment took 15 minutes.
--- NOTE | 2020-11-03 11:05 | MHIPN ---
[facility] PROGRESS NOTE DATE: 11/02/2020 VITAL SIGNS: Blood pressure 142/79, pulse 66, temperature 96.6. This is a video assessment, he is aware of it, agrees to it, and its limitations, he is in the hospital, inpatient psychiatry, I am at home. CHIEF COMPLAINT: Feels anxious. SUBJECTIVE: Seen for followup. Indicates has been feeling anxious, though does say he slept a bit better once he was able to go to sleep last night. Appetite is improving. Anxiety is maintained for the most part. Has had some diarrhea, including this morning. Denies any suicidal thoughts or intents. MENTAL STATUS EXAMINATION: Fair hygiene, he is cooperative, no agitation, no psychomotor retardation, coherent, affect reactive, appears mildly anxious. Denies any thoughts of harming himself at present but is concerned that if he were to leave would develop those thoughts, as he says his circumstances have not changed. No homicidal ideas or intents, no evidence of any psychosis. His cognition is grossly intact. Judgment fair, possibly improved. Insight fair, but remains compromised. ASSESSMENT: Bipolar disorder. Alcohol use disorder. The other possibility is major depressive disorder, but suggests has been diagnosed with bipolar type 1 disorder in the past. It should be noted that he has tremors of both hands, says has had them for a while, puts this down to lithium, which he was on for about 10 years, says has not had any lithium for about a year or so, if not longer. The tremors worsen, he feels, on intention, but they do not seem to be when he is using the plastic cup, is drinking from it. Also suggests has had involuntary tongue movements, and the jaw, none currently, and is concerned maybe has developed tardive dyskinesia. Says was switched from lithium to Vraylar, outpatient, but that more recently was switched over to Latuda. Anxieties remain an issue. PLAN: In view of the above, after a discussion of the risks, benefits, drawbacks, and alternatives, he will be started on buspirone at 5 mg twice a day, says has used a higher dose in the past, found it helpful, this may help with the anxiety, and not contribute to tremors. Meanwhile, he is to continue the Latuda for now, at 80 mg daily. Will continue with Paxil at current dose. Continue monitoring for withdrawal. Encourage participation in activities in the unit as tolerated. Further recommendations will be made depending on the clinical picture. He will be seeing the assigned clinician tomorrow.
[2020-11-03] MEDS ORDERED: IBUPROFEN 600MG TAB PO PRN (16:40)
[2020-11-03] MEDS: hydrOXYzine 50 MG TAB PO PRN (16:51)
[2020-11-03 17:50] VITALS: BP 135/86
[2020-11-03] MEDS: LURASIDONE HCL 40 MG TAB (LATUDA) PO SCH (17:55)
[2020-11-03] MEDS: TAMSULOSIN 0.4 MG CAP PO SCH (20:33)
[2020-11-03] MEDS: traZODone 50 MG TAB PO PRN (20:34)
--- NOTE | 2020-11-03 20:37 | MHIPNPDOC ---
[facility] Progress Note Progress Note DATE OF SERVICE: 11/03/20 HISTORY: Patient is a 45-year-old man who was transferred from medicine after he was stabilized for acute alcohol withdrawal with associated severe depression and suicidal thoughts. He also was stabilized for hypertensive crisis. reports lengthy history of polysubstance abuse including opiates and cocaine. Has multiple past admissions with last discharge in February 2020. Prior to admission has not been taking his medications prescribed psychiatrist, despite reporting a past diagnosis of bipolar disorder, please include Wellbutrin, Latuda, Xanax. Reports taking lithium with good effect in the past, however developed hypothyroidism. Interval: Today reports having some limited thoughts about going to inpatient rehab. On further questioning states he needs rehab, but is concerned about his insurance not covering stay at [facility] this past December. After questioning states he has OCD, generalized anxiety disorder and bipolar disorder. Reports continues to have depression and if he is released likely be suicidal because he is $400 in debt. Also reports that cocaine addiction started because his neighbor was selling it to him. We discussed triggers for his addiction including convenience, impulsive nature, depression, dissatisfaction with life situation. We also discussed how addiction may worsen these stressors as drugs are expensive, affect productivity, relationships, health and addiction treatment may significantly help in the long-term. VITAL SIGNS: See below. NEW TEST RESULTS: none CURRENT MEDICATIONS: See below. MENTAL STATUS EXAMINATION: Patient is a 45-year old male, who appears older than stated age, glasses, balding, thin, disheveled. Speech: Is normal rate, rhythm, volume, increased amount Language skills are good Thought processes including: linear, logical Thought content: reports passive suicidal ideation, states will be suicidal upon discharge Abstract reasoning, and computation: intact. Description of associations:intact Description of abnormal or psychotic thoughts: denies. Judgment: poor, despite dangerous use of drugs and SI wants outpatient treatment as soon as possible Insight: poor Orientation: A/O x3 Recent and remote memory: intact Attention span and concentration: fair Language: intact, polish Fund of knowledge: average based on interview Mood: "nervous" Affect: anxious, dysthymic, stable, congruent to mood DIAGNOSES: 1. Major depressive disorder, recurrent, moderate 2. R/O OCD, substance induced mood disorder, bipolar disorder 3. Alcohol use disorder, severe 4. Tobacco use disorder, nicorette gum 5. cocaine use disorder, moderate 6. history opioid use 7. Cannabis use ASSESSMENT: Patient continues to remain depressed with occasional suicidal thoughts and concern for safety on discharge, has cravings for addictions, is generally anxious. Discussed treatment options while waiting for inpatient rehab, but wants to continue on his current regimen at this time. MANAGEMENT PLAN: Continue with current medication regimen of Paxil, wellbutrin, buspar and lurasidone 80 mg po daily. Continue with coordination of care for transition to inpatient rehab. May consider treatments for alcohol addiction in meantime including nalaxone if amenable. TIME SPENT: 35 minutes. Vital Signs Vital Signs Date Time Temp Pulse Resp B/P (MAP) Pulse Ox O2 Delivery O2 Flow Rate FiO2 11/03/20 17:50 98.7 78 18 135/86 (102) 96 Room Air Current Medications Current Medications Medications (Trade) Dose Ordered Sig/Sharla Route PRN Reason Start Time Stop Time Status Last Admin Dose Admin Acetaminophen (Tylenol Tab) 650 mg Q6HP PRN PO HEADACHE or MILD DISCOMFORT 10/29/20 14:30 10/30/20 10:14 DC Al Hydrox/Mg Hydrox/Simethicone (Mylanta) 30 ml Q4HP PRN PO HEARTBURN/INDIGESTION 10/29/20 14:30 Bupropion HCl (Wellbutrin Sr) 100 mg BID PO 10/30/20 09:00 11/03/20 08:42 Bupropion HCl (Wellbutrin Sr) 100 mg BID PO 10/30/20 11:50 10/30/20 11:51 DC Bupropion HCl (Wellbutrin) 100 mg BID PO 10/30/20 09:00 10/30/20 11:50 DC Buspirone HCl (Buspar) 5 mg BID PO 11/02/20 09:00 11/03/20 08:42 Folic Acid (Folic Acid) 1 mg DAILY PO 10/30/20 09:00 11/01/20 06:08 DC 10/31/20 08:44 Home Med (Home Med List Complete!) ASDIRECTED XX 10/30/20 09:40 10/30/20 09:41 DC Hydroxyzine HCl (Atarax) 50 mg Q6HP PRN PO anxiety 10/31/20 10:25 11/03/20 16:51 Ibuprofen (Advil) 200 mg Q6HP PRN PO PAIN LEVEL 1-5 10/30/20 10:15 10/30/20 10:17 DC Ibuprofen (Advil) 600 mg Q6HP PRN PO MODERATE PAIN (PS 5-7) 10/30/20 10:15 Cancel Ibuprofen (Advil) 600 mg Q6HP PRN PO MILD/MODERATE PAIN (PS 1-7) 11/03/20 16:40 11/03/20 17:56 Irbesartan (Avapro) 150 mg DAILY PO 10/30/20 09:00 11/03/20 08:43 Levothyroxine Sodium (Synthroid) 75 mcg DAILY@06 PO 10/30/20 06:00 11/03/20 06:17 Lorazepam (Ativan) 2 mg ASDIRECTED PRN PO SEE PROTOCOL 10/29/20 17:15 11/01/20 06:08 DC 10/30/20 22:12 Lurasidone HCl (Latuda) 80 mg DAILY@18 PO 10/30/20 18:00 11/03/20 17:55 Magnesium Hydroxide (Milk Of Magnesia) 30 ml DAILYPRN PRN PO CONSTIPATION 10/29/20 14:30 Multivitamins (Theragram-M) 1 tab DAILY PO 10/30/20 09:00 11/01/20 06:08 DC 10/31/20 08:44 Nicotine (Nicorette) 2 mg Q4HP PRN PO NICOTINE WITHDRAWAL 10/29/20 20:15 11/03/20 19:45 Paroxetine HCl (PAXil) 20 mg DAILY PO 10/30/20 17:00 11/03/20 08:42 Tamsulosin HCl (Flomax) 0.4 mg QHS PO 10/30/20 21:00 11/02/20 20:19 Thiamine HCl (Thiamine HCl) 100 mg BID PO 10/29/20 18:00 11/01/20 06:08 DC 10/31/20 20:02 Trazodone HCl (Desyrel) 50 mg QHSP PRN PO INSOMNIA 10/29/20 14:30 11/02/20 20:19 Allergies Coded Allergies: No Known Allergies (Verified Allergy, Unknown, 01/30/19) PUSHPA GUADALUPE MD Nov 03, 2020 20:37
[2020-11-04] MEDS: LEVOTHYROXINE 75MCG TABLET (0.075MG) PO SCH (05:25)
[2020-11-04 06:55] VITALS: BP 108/59
[2020-11-04] MEDS: buPROPion (WELLBUTRIN SR) 100 MG SR TAB PO SCH ×2 (08:40→21:15)
[2020-11-04] MEDS: PARoxetine 20MG TABLET PO SCH (08:40)
[2020-11-04] MEDS: NICOTINE POLACRILEX 2 MG GUM PO PRN ×3 (08:40→19:44)
[2020-11-04] MEDS: IRBESARTAN 150MG TAB PO SCH (08:40)
[2020-11-04] MEDS: busPIRone 5 MG TAB PO SCH ×2 (08:40→21:15)
[2020-11-04] MEDS: hydrOXYzine 50 MG TAB PO PRN (12:15)
--- NOTE | 2020-11-04 14:51 | MHIPNPDOC ---
[facility] Progress Note Progress Note DATE OF SERVICE: 11/04/20 HISTORY: Patient is a 45-year-old man who was transferred from medicine after he was stabilized for acute alcohol withdrawal with associated severe depression and suicidal thoughts. He also was stabilized for hypertensive crisis. reports lengthy history of polysubstance abuse including opiates and cocaine. Has multiple past admissions with last discharge in February 2020. Prior to admission has not been taking his medications prescribed psychiatrist, despite reporting a past diagnosis of bipolar disorder, please include Wellbutrin, Latuda, Xanax. Reports taking lithium with good effect in the past, however developed hypothyroidism. Interval: Today patient states he again worries will be suicidal if discharged, reports unsure if medications helping his anxiety. Agreeable to starting naltrexone 50 mg for alcohol cravings. States he still is interested in dual diagnosis as long as he doesn't have to wait an extended period of time, otherwise if craving reduced with medication would consider credo. VITAL SIGNS: See below. NEW TEST RESULTS: none CURRENT MEDICATIONS: See below. MENTAL STATUS EXAMINATION: Patient is a 45-year old male, who appears older than stated age, glasses, balding, thin, disheveled. Speech: Is normal rate, rhythm, volume, increased amount Language skills are good Thought processes including: linear, logical Thought content: reports passive suicidal ideation, continues to state possible suicidality if discharged Abstract reasoning, and computation: intact. Description of associations:intact Description of abnormal or psychotic thoughts: denies. Judgment: poor, improving Insight: improving Orientation: A/O x3 Recent and remote memory: intact Attention span and concentration: fair Language: intact, Colombian Fund of knowledge: average based on interview Mood: "same" Affect: continues to be anxious, congruent to mood DIAGNOSES: 1. Major depressive disorder, recurrent, moderate 2. R/O OCD, substance induced mood disorder, bipolar disorder 3. Alcohol use disorder, severe 4. Tobacco use disorder, nicorette gum 5. cocaine use disorder, moderate 6. history opioid use 7. Cannabis use ASSESSMENT: Agreeable to treatment for cravings with plan for vivtrol shot. Overall depressed and anxious, will consider change in medications if mood doesn't improve in next days. MANAGEMENT PLAN: Continue with current medication regimen of Paxil, wellbutrin, buspar and lurasidone 80 mg po daily. Start naltrexone 50 mg po daily for cravings, liver enzyme on recent testing wnl. Continue with coordination of care for transition to inpatient rehab vs outpatient if cravings improve considering dangerous alcohol and drug use prior to admission leading to hospitalization. TIME SPENT: 20 minutes. Vital Signs Vital Signs Date Time Temp Pulse Resp B/P (MAP) Pulse Ox O2 Delivery O2 Flow Rate FiO2 11/04/20 08:40 150/90 11/04/20 06:55 98.6 51 18 100 Room Air Current Medications Current Medications Medications (Trade) Dose Ordered Sig/Sharla Route PRN Reason Start Time Stop Time Status Last Admin Dose Admin Acetaminophen (Tylenol Tab) 650 mg Q6HP PRN PO HEADACHE or MILD DISCOMFORT 10/29/20 14:30 10/30/20 10:14 DC Al Hydrox/Mg Hydrox/Simethicone (Mylanta) 30 ml Q4HP PRN PO HEARTBURN/INDIGESTION 10/29/20 14:30 Bupropion HCl (Wellbutrin Sr) 100 mg BID PO 10/30/20 09:00 11/04/20 08:40 Bupropion HCl (Wellbutrin Sr) 100 mg BID PO 10/30/20 11:50 10/30/20 11:51 DC Bupropion HCl (Wellbutrin) 100 mg BID PO 10/30/20 09:00 10/30/20 11:50 DC Buspirone HCl (Buspar) 5 mg BID PO 11/02/20 09:00 11/04/20 08:40 Folic Acid (Folic Acid) 1 mg DAILY PO 10/30/20 09:00 11/01/20 06:08 DC 10/31/20 08:44 Home Med (Home Med List Complete!) ASDIRECTED XX 10/30/20 09:40 10/30/20 09:41 DC Hydroxyzine HCl (Atarax) 50 mg Q6HP PRN PO anxiety 10/31/20 10:25 11/04/20 12:15 Ibuprofen (Advil) 200 mg Q6HP PRN PO PAIN LEVEL 1-5 10/30/20 10:15 10/30/20 10:17 DC Ibuprofen (Advil) 600 mg Q6HP PRN PO MODERATE PAIN (PS 5-7) 10/30/20 10:15 Cancel Ibuprofen (Advil) 600 mg Q6HP PRN PO MILD/MODERATE PAIN (PS 1-7) 11/03/20 16:40 11/03/20 17:56 Irbesartan (Avapro) 150 mg DAILY PO 10/30/20 09:00 11/04/20 08:40 Levothyroxine Sodium (Synthroid) 75 mcg DAILY@06 PO 10/30/20 06:00 11/04/20 05:25 Lorazepam (Ativan) 2 mg ASDIRECTED PRN PO SEE PROTOCOL 10/29/20 17:15 11/01/20 06:08 DC 10/30/20 22:12 Lurasidone HCl (Latuda) 80 mg DAILY@18 PO 10/30/20 18:00 11/03/20 17:55 Magnesium Hydroxide (Milk Of Magnesia) 30 ml DAILYPRN PRN PO CONSTIPATION 10/29/20 14:30 Multivitamins (Theragram-M) 1 tab DAILY PO 10/30/20 09:00 11/01/20 06:08 DC 10/31/20 08:44 Naltrexone HCl (Revia) 50 mg DAILY PO 11/04/20 14:40 UNV Nicotine (Nicorette) 2 mg Q4HP PRN PO NICOTINE WITHDRAWAL 10/29/20 20:15 11/04/20 08:40 Paroxetine HCl (PAXil) 20 mg DAILY PO 10/30/20 17:00 11/04/20 08:40 Tamsulosin HCl (Flomax) 0.4 mg QHS PO 10/30/20 21:00 11/03/20 20:33 Thiamine HCl (Thiamine HCl) 100 mg BID PO 10/29/20 18:00 11/01/20 06:08 DC 10/31/20 20:02 Trazodone HCl (Desyrel) 50 mg QHSP PRN PO INSOMNIA 10/29/20 14:30 11/03/20 20:34 Allergies Coded Allergies: No Known Allergies (Verified Allergy, Unknown, 01/30/19) PUSHPA GUADALUPE MD Nov 04, 2020 14:51
[2020-11-04] MEDS: NALTREXONE 50 MG TAB PO SCH (15:30)
[2020-11-04 16:31] VITALS: BP 134/84
[2020-11-04] MEDS: LURASIDONE HCL 40 MG TAB (LATUDA) PO SCH (17:38)
[2020-11-04] MEDS: traZODone 50 MG TAB PO PRN (21:15)
[2020-11-04] MEDS: TAMSULOSIN 0.4 MG CAP PO SCH (21:15)
[2020-11-05] MEDS: LEVOTHYROXINE 75MCG TABLET (0.075MG) PO SCH (05:23)
[2020-11-05 07:04] VITALS: BP 109/59
[2020-11-05] MEDS: NALTREXONE 50 MG TAB PO SCH (08:52)
[2020-11-05] MEDS: PARoxetine 20MG TABLET PO SCH (08:52)
[2020-11-05] MEDS: busPIRone 5 MG TAB PO SCH (08:52)
[2020-11-05] MEDS: buPROPion (WELLBUTRIN SR) 100 MG SR TAB PO SCH ×2 (08:52→20:48)
[2020-11-05] MEDS: IRBESARTAN 150MG TAB PO SCH (08:53)
[2020-11-05] MEDS: NICOTINE POLACRILEX 2 MG GUM PO PRN ×3 (08:54→17:26)
--- NOTE | 2020-11-05 10:58 | MHIPNPDOC ---
[facility] Progress Note Progress Note DATE OF SERVICE: 11/05/20 HISTORY: Patient is a 45-year-old man who was transferred from medicine after he was stabilized for acute alcohol withdrawal with associated severe depression and suicidal thoughts. He also was stabilized for hypertensive crisis. reports lengthy history of polysubstance abuse including opiates and cocaine. Has multiple past admissions with last discharge in February 2020. Prior to admission has not been taking his medications prescribed psychiatrist, despite reporting a past diagnosis of bipolar disorder, please include Wellbutrin, Latuda, Xanax. Reports taking lithium with good effect in the past, however developed hypothyroidism. Interval: Explained to patient has been rejected from first inpatient rehab placement, but social work is working on another inpatient rehab, [facility] [place]. Prior to this discussion states today feels he is doing a little bit better since adjusting to the medications, agrees to the increase BuSpar dose, 10 mg twice daily for anxiety, aware of common and side effects. When asked about his thoughts on going to outpatient states " I guess I am not as anxious or worried as before". Denies acute suicidal ideation. Reports tolerates naltrexone without side effects for his alcohol cravings. VITAL SIGNS: See below. NEW TEST RESULTS: none CURRENT MEDICATIONS: See below. MENTAL STATUS EXAMINATION: Patient is a 45-year old male, who appears older than stated age, glasses, curly hair, balding, thin, improved hygiene. Speech: Is normal rate, rhythm, volume, increased amount Language skills are intact Thought processes including: linear, logical Thought content: Denies suicidal ideation, intent or plan, states he is less worried about having these thoughts upon discharge. Abstract reasoning, and computation: intact. Description of associations:intact Description of abnormal or psychotic thoughts: denies. Judgment: Fair, improving Insight: improving Orientation: A/O x3 Recent and remote memory: intact Attention span and concentration: fair Language: intact, [place] Korean Fund of knowledge: average based on interview Mood: "better" Affect: Less anxious, congruent to mood DIAGNOSES: 1. Major depressive disorder, recurrent, moderate 2. R/O OCD, substance induced mood disorder, bipolar disorder 3. Alcohol use disorder, severe 4. Tobacco use disorder, nicorette gum 5. cocaine use disorder, moderate 6. history opioid use 7. Cannabis use ASSESSMENT: Patient tolerating Vivitrol shot without side effects, reports seems to respond to antidepressant medications which previously were not helping his mood. Overall anxiety is decreased reportedly per patient and based on interview. Currently denies suicidal thoughts. Needs continued stay for safe placement due to severity of initial presentation in context of severe intoxication. MANAGEMENT PLAN: Continue with current medication regimen of Paxil, wellbutrin, buspar and lurasidone 80 mg po daily. Increase BuSpar to 10 mg twice daily. Continue naltrexone 50 mg po daily for alcohol cravings. Continue with coordination of care for transition to inpatient rehab vs outpatient, working with discharge planners. TIME SPENT: 15 minutes. Vital Signs Vital Signs Date Time Temp Pulse Resp B/P (MAP) Pulse Ox O2 Delivery O2 Flow Rate FiO2 11/05/20 09:04 Room Air 11/05/20 08:53 135/93 11/05/20 07:04 98.2 52 18 97 Current Medications Current Medications Medications (Trade) Dose Ordered Sig/Sharla Route PRN Reason Start Time Stop Time Status Last Admin Dose Admin Acetaminophen (Tylenol Tab) 650 mg Q6HP PRN PO HEADACHE or MILD DISCOMFORT 10/29/20 14:30 10/30/20 10:14 DC Al Hydrox/Mg Hydrox/Simethicone (Mylanta) 30 ml Q4HP PRN PO HEARTBURN/INDIGESTION 10/29/20 14:30 Bupropion HCl (Wellbutrin Sr) 100 mg BID PO 10/30/20 09:00 11/05/20 08:52 Bupropion HCl (Wellbutrin Sr) 100 mg BID PO 10/30/20 11:50 10/30/20 11:51 DC Bupropion HCl (Wellbutrin) 100 mg BID PO 10/30/20 09:00 10/30/20 11:50 DC Buspirone HCl (Buspar) 5 mg BID PO 11/02/20 09:00 11/05/20 08:52 Folic Acid (Folic Acid) 1 mg DAILY PO 10/30/20 09:00 11/01/20 06:08 DC 10/31/20 08:44 Home Med (Home Med List Complete!) ASDIRECTED XX 10/30/20 09:40 10/30/20 09:41 DC Hydroxyzine HCl (Atarax) 50 mg Q6HP PRN PO anxiety 10/31/20 10:25 11/04/20 12:15 Ibuprofen (Advil) 200 mg Q6HP PRN PO PAIN LEVEL 1-5 10/30/20 10:15 10/30/20 10:17 DC Ibuprofen (Advil) 600 mg Q6HP PRN PO MODERATE PAIN (PS 5-7) 10/30/20 10:15 Cancel Ibuprofen (Advil) 600 mg Q6HP PRN PO MILD/MODERATE PAIN (PS 1-7) 11/03/20 16:40 11/03/20 17:56 Irbesartan (Avapro) 150 mg DAILY PO 10/30/20 09:00 11/05/20 08:53 Levothyroxine Sodium (Synthroid) 75 mcg DAILY@06 PO 10/30/20 06:00 11/05/20 05:23 Lorazepam (Ativan) 2 mg ASDIRECTED PRN PO SEE PROTOCOL 10/29/20 17:15 11/01/20 06:08 DC 10/30/20 22:12 Lurasidone HCl (Latuda) 80 mg DAILY@18 PO 10/30/20 18:00 11/04/20 17:38 Magnesium Hydroxide (Milk Of Magnesia) 30 ml DAILYPRN PRN PO CONSTIPATION 10/29/20 14:30 Multivitamins (Theragram-M) 1 tab DAILY PO 10/30/20 09:00 11/01/20 06:08 DC 10/31/20 08:44 Naltrexone HCl (Revia) 50 mg DAILY PO 11/04/20 14:40 11/05/20 08:52 Nicotine (Nicorette) 2 mg Q4HP PRN PO NICOTINE WITHDRAWAL 10/29/20 20:15 11/05/20 08:54 Paroxetine HCl (PAXil) 20 mg DAILY PO 10/30/20 17:00 11/05/20 08:52 Tamsulosin HCl (Flomax) 0.4 mg QHS PO 10/30/20 21:00 11/04/20 21:15 Thiamine HCl (Thiamine HCl) 100 mg BID PO 10/29/20 18:00 11/01/20 06:08 DC 10/31/20 20:02 Trazodone HCl (Desyrel) 50 mg QHSP PRN PO INSOMNIA 10/29/20 14:30 11/04/20 21:15 Allergies Coded Allergies: No Known Allergies (Verified Allergy, Unknown, 01/30/19) PUSHPA GUADALUPE MD Nov 05, 2020 10:58
[2020-11-05] MEDS: hydrOXYzine 50 MG TAB PO PRN ×2 (11:22→20:48)
[2020-11-05 16:25] VITALS: BP 138/78
[2020-11-05] MEDS: LURASIDONE HCL 40 MG TAB (LATUDA) PO SCH (17:44)
[2020-11-05] MEDS: TAMSULOSIN 0.4 MG CAP PO SCH (20:48)
[2020-11-05] MEDS: busPIRone 10 MG TAB PO SCH (20:48)
[2020-11-05] MEDS: traZODone 50 MG TAB PO PRN (20:48)
[2020-11-06] MEDS: LEVOTHYROXINE 75MCG TABLET (0.075MG) PO SCH (06:12)
[2020-11-06 06:55] VITALS: BP 153/79
[2020-11-06 06:59] VITALS: BP 153/79
[2020-11-06] MEDS: PARoxetine 20MG TABLET PO SCH (09:34)
[2020-11-06] MEDS: busPIRone 10 MG TAB PO SCH ×2 (09:34→21:29)
[2020-11-06] MEDS: NALTREXONE 50 MG TAB PO SCH (09:34)
[2020-11-06] MEDS: IRBESARTAN 150MG TAB PO SCH (09:34)
[2020-11-06] MEDS: buPROPion (WELLBUTRIN SR) 100 MG SR TAB PO SCH ×2 (09:34→21:29)
[2020-11-06] MEDS: NICOTINE POLACRILEX 2 MG GUM PO PRN ×2 (09:34→15:41)
[2020-11-06] MEDS: hydrOXYzine 50 MG TAB PO PRN (12:22)
[2020-11-06] MEDS: LURASIDONE HCL 40 MG TAB (LATUDA) PO SCH (17:18)
[2020-11-06 18:28] VITALS: BP 140/84
--- NOTE | 2020-11-06 19:21 | MHIPNPDOC ---
[facility] Progress Note Progress Note DATE OF SERVICE: 11/06/20 HISTORY: Patient is a 45-year-old man who was transferred from medicine after he was stabilized for acute alcohol withdrawal with associated severe depression and suicidal thoughts. He also was stabilized for hypertensive crisis. reports lengthy history of polysubstance abuse including opiates and cocaine. Has multiple past admissions with last discharge in February 2020. Prior to admission has not been taking his medications prescribed psychiatrist, despite reporting a past diagnosis of bipolar disorder, please include Wellbutrin, Latuda, Xanax. Reports taking lithium with good effect in the past, however developed hypothyroidism. Interval: Patient is agreeable to continued stay, reports medications helping with cravings, states" I will have enough money anyways to go drugs if I leave here". Agreeable to plan if he cannot establish inpatient rehab with [facility] and may pursue outpatient addiction treatment. Denies suicidal ideation plan, appears less anxious. Agrees to increase Paxil for mood control, states he always has taken in the morning without much sedation, despite discussion on side effects including possible daytime sedation. Reports sleep and appetite are normal, acute physical complaints. VITAL SIGNS: See below. NEW TEST RESULTS: none CURRENT MEDICATIONS: See below. MENTAL STATUS EXAMINATION: Patient is a 45-year old male, who appears older than stated age, glasses, curly hair, balding, thin, improved hygiene. Speech: Is normal rate, rhythm, volume, increased amount Language skills are intact Thought processes including: linear, logical Thought content: Denies suicidal ideation, intent or plan, states he is less worried about having these thoughts upon discharge. Abstract reasoning, and computation: intact. Description of associations:intact Description of abnormal or psychotic thoughts: denies. Judgment: Fair, improving Insight: improving Orientation: A/O x3 Recent and remote memory: intact Attention span and concentration: fair Language: intact, Polish Fund of knowledge: average based on interview Mood: "good" Affect: Mildly anxious, stable, congruent to mood. DIAGNOSES: 1. Major depressive disorder, recurrent, moderate 2. R/O OCD, substance induced mood disorder, bipolar disorder 3. Alcohol use disorder, severe 4. Tobacco use disorder, nicorette gum 5. cocaine use disorder, moderate 6. history opioid use 7. Cannabis use ASSESSMENT: Patient tolerating medications without side effects, medications helping with mood and anxiety symptoms. Agreeable to increasing Paxil, discussed concern of Wellbutrin if he drinks alcohol again due to seizure risk. MANAGEMENT PLAN: Increase Paxil from 20 to 40 mg po daily, discussed side effects and patient consents, continue wellbutrin, buspar and lurasidone 80 mg po daily. Continue BuSpar to 10 mg twice daily. Continue naltrexone 50 mg po daily for alcohol cravings. Educated on medication interactions with alcohol, including risks of seizure and . TIME SPENT: 20 minutes. Vital Signs Vital Signs Date Time Temp Pulse Resp B/P (MAP) Pulse Ox O2 Delivery O2 Flow Rate FiO2 11/06/20 18:28 97.2 97 18 140/84 (102) 11/06/20 08:04 Room Air 11/06/20 06:59 99 Current Medications Current Medications Medications (Trade) Dose Ordered Sig/Sharla Route PRN Reason Start Time Stop Time Status Last Admin Dose Admin Acetaminophen (Tylenol Tab) 650 mg Q6HP PRN PO HEADACHE or MILD DISCOMFORT 10/29/20 14:30 10/30/20 10:14 DC Al Hydrox/Mg Hydrox/Simethicone (Mylanta) 30 ml Q4HP PRN PO HEARTBURN/INDIGESTION 10/29/20 14:30 Bupropion HCl (Wellbutrin Sr) 100 mg BID PO 10/30/20 09:00 11/06/20 09:34 Bupropion HCl (Wellbutrin Sr) 100 mg BID PO 10/30/20 11:50 10/30/20 11:51 DC Bupropion HCl (Wellbutrin) 100 mg BID PO 10/30/20 09:00 10/30/20 11:50 DC Buspirone HCl (Buspar) 5 mg BID PO 11/02/20 09:00 11/05/20 10:58 DC 11/05/20 08:52 Buspirone HCl (Buspar) 10 mg BID PO 11/05/20 21:00 11/06/20 09:34 Folic Acid (Folic Acid) 1 mg DAILY PO 10/30/20 09:00 11/01/20 06:08 DC 10/31/20 08:44 Home Med (Home Med List Complete!) ASDIRECTED XX 10/30/20 09:40 10/30/20 09:41 DC Hydroxyzine HCl (Atarax) 50 mg Q6HP PRN PO anxiety 10/31/20 10:25 11/06/20 12:22 Ibuprofen (Advil) 200 mg Q6HP PRN PO PAIN LEVEL 1-5 10/30/20 10:15 10/30/20 10:17 DC Ibuprofen (Advil) 600 mg Q6HP PRN PO MODERATE PAIN (PS 5-7) 10/30/20 10:15 Cancel Ibuprofen (Advil) 600 mg Q6HP PRN PO MILD/MODERATE PAIN (PS 1-7) 11/03/20 16:40 11/03/20 17:56 Irbesartan (Avapro) 150 mg DAILY PO 10/30/20 09:00 11/06/20 09:34 Levothyroxine Sodium (Synthroid) 75 mcg DAILY@06 PO 10/30/20 06:00 11/06/20 06:12 Lorazepam (Ativan) 2 mg ASDIRECTED PRN PO SEE PROTOCOL 10/29/20 17:15 11/01/20 06:08 DC 10/30/20 22:12 Lurasidone HCl (Latuda) 80 mg DAILY@18 PO 10/30/20 18:00 11/06/20 17:18 Magnesium Hydroxide (Milk Of Magnesia) 30 ml DAILYPRN PRN PO CONSTIPATION 10/29/20 14:30 Multivitamins (Theragram-M) 1 tab DAILY PO 10/30/20 09:00 11/01/20 06:08 DC 10/31/20 08:44 Naltrexone HCl (Revia) 50 mg DAILY PO 11/04/20 14:40 11/06/20 09:34 Nicotine (Nicorette) 2 mg Q4HP PRN PO NICOTINE WITHDRAWAL 10/29/20 20:15 11/06/20 15:41 Paroxetine HCl (PAXil) 20 mg DAILY PO 10/30/20 17:00 11/06/20 13:02 DC 11/06/20 09:34 Paroxetine HCl (PAXil) 40 mg DAILY PO 11/07/20 09:00 Tamsulosin HCl (Flomax) 0.4 mg QHS PO 10/30/20 21:00 11/05/20 20:48 Thiamine HCl (Thiamine HCl) 100 mg BID PO 10/29/20 18:00 11/01/20 06:08 DC 10/31/20 20:02 Trazodone HCl (Desyrel) 50 mg QHSP PRN PO INSOMNIA 10/29/20 14:30 11/05/20 20:48 Allergies Coded Allergies: No Known Allergies (Verified Allergy, Unknown, 01/30/19) PUSHPA GUADALUPE MD Nov 06, 2020 19:20
[2020-11-06] MEDS: traZODone 50 MG TAB PO PRN (21:29)
[2020-11-06] MEDS: TAMSULOSIN 0.4 MG CAP PO SCH (21:29)
[2020-11-07] MEDS: LEVOTHYROXINE 75MCG TABLET (0.075MG) PO SCH (06:10)
[2020-11-07 07:02] VITALS: BP 114/59
[2020-11-07] MEDS: IRBESARTAN 150MG TAB PO SCH (08:58)
[2020-11-07] MEDS: buPROPion (WELLBUTRIN SR) 100 MG SR TAB PO SCH ×2 (08:58→20:51)
[2020-11-07] MEDS: busPIRone 10 MG TAB PO SCH ×2 (08:58→20:51)
[2020-11-07] MEDS: NICOTINE POLACRILEX 2 MG GUM PO PRN ×2 (08:58→17:44)
[2020-11-07] MEDS: PARoxetine 20MG TABLET PO SCH (08:58)
[2020-11-07] MEDS: NALTREXONE 50 MG TAB PO SCH (08:58)
[2020-11-07 16:08] VITALS: BP 108/62
[2020-11-07] MEDS: LURASIDONE HCL 40 MG TAB (LATUDA) PO SCH (17:42)
--- NOTE | 2020-11-07 17:47 | MHIPNPDOC ---
[facility] Progress Note Progress Note DATE OF SERVICE: 11/07/20 HISTORY: Patient is a 45-year-old man who was transferred from medicine after he was stabilized for acute alcohol withdrawal with associated severe depression and suicidal thoughts. He also was stabilized for hypertensive crisis. reports lengthy history of polysubstance abuse including opiates and cocaine. Has multiple past admissions with last discharge in February 2020. Prior to admission has not been taking his medications prescribed psychiatrist, despite reporting a past diagnosis of bipolar disorder, please include Wellbutrin, Latuda, Xanax. Reports taking lithium with good effect in the past, however developed hypothyroidism. Interval: Luis Enrique continues to make significant progress on the unit, states he thinks that increasing his medications is helping him, particularly BuSpar because anxiety symptoms. States he has cravings for alcohol 4-5 ago, but not since that time, states naltrexone appears to be helping with his cravings. States he is feeling " much more confident" now that he is engaging in groups and that he feels much better about discharge. When asked if he has concerns about suicidal ideation on discharge, reports "I'm feeling better about it, now that he can use my skills from group". VITAL SIGNS: See below. NEW TEST RESULTS: none CURRENT MEDICATIONS: See below. MENTAL STATUS EXAMINATION: Patient is a 45-year old male, who appears older than stated age, glasses, curly hair, balding, thin, improved hygiene, improved eye contact. Speech: Is normal rate, rhythm, volume, increased amount Language skills are intact Thought processes including: linear, logical Thought content: Denies suicidal ideation, intent or plan, Abstract reasoning, and computation: intact. Description of associations:normal Description of abnormal or psychotic thoughts: denies. Judgment: Fair, improving Insight: improving Orientation: A/O x3 Recent and remote memory: intact Attention span and concentration: fair Language: intact, Beninese Fund of knowledge: average based on interview Mood: "much better" Affect: Euthymic, stable, congruent to mood. DIAGNOSES: 1. Major depressive disorder, recurrent, moderate 2. R/O OCD, substance induced mood disorder, bipolar disorder 3. Alcohol use disorder, severe 4. Tobacco use disorder, nicorette gum 5. cocaine use disorder, moderate 6. history opioid use 7. Cannabis use ASSESSMENT: Denies side effects since increasing Paxil, feels sleep and energy are improved, reduced anxiety and increased engagement in group therapy, no longer sleeping in bed during the day as much, no acute distress. MANAGEMENT PLAN: Continue current medication regimen, Continue BuSpar to 10 mg twice daily. Possible discharge early next week if does not find placement in inpatient rehab program and continues to improve. TIME SPENT: 15 minutes. Vital Signs Vital Signs Date Time Temp Pulse Resp B/P (MAP) Pulse Ox O2 Delivery O2 Flow Rate FiO2 11/07/20 16:08 98.2 66 15 108/62 (77) 100 Room Air Current Medications Current Medications Medications (Trade) Dose Ordered Sig/Sharla Route PRN Reason Start Time Stop Time Status Last Admin Dose Admin Acetaminophen (Tylenol Tab) 650 mg Q6HP PRN PO HEADACHE or MILD DISCOMFORT 10/29/20 14:30 10/30/20 10:14 DC Al Hydrox/Mg Hydrox/Simethicone (Mylanta) 30 ml Q4HP PRN PO HEARTBURN/INDIGESTION 10/29/20 14:30 Bupropion HCl (Wellbutrin Sr) 100 mg BID PO 10/30/20 09:00 11/07/20 08:58 Bupropion HCl (Wellbutrin Sr) 100 mg BID PO 10/30/20 11:50 10/30/20 11:51 DC Bupropion HCl (Wellbutrin) 100 mg BID PO 10/30/20 09:00 10/30/20 11:50 DC Buspirone HCl (Buspar) 5 mg BID PO 11/02/20 09:00 11/05/20 10:58 DC 11/05/20 08:52 Buspirone HCl (Buspar) 10 mg BID PO 11/05/20 21:00 11/07/20 08:58 Folic Acid (Folic Acid) 1 mg DAILY PO 10/30/20 09:00 11/01/20 06:08 DC 10/31/20 08:44 Home Med (Home Med List Complete!) ASDIRECTED XX 10/30/20 09:40 10/30/20 09:41 DC Hydroxyzine HCl (Atarax) 50 mg Q6HP PRN PO anxiety 10/31/20 10:25 11/06/20 12:22 Ibuprofen (Advil) 200 mg Q6HP PRN PO PAIN LEVEL 1-5 10/30/20 10:15 10/30/20 10:17 DC Ibuprofen (Advil) 600 mg Q6HP PRN PO MODERATE PAIN (PS 5-7) 10/30/20 10:15 Cancel Ibuprofen (Advil) 600 mg Q6HP PRN PO MILD/MODERATE PAIN (PS 1-7) 11/03/20 16:40 11/03/20 17:56 Irbesartan (Avapro) 150 mg DAILY PO 10/30/20 09:00 11/07/20 08:58 Levothyroxine Sodium (Synthroid) 75 mcg DAILY@06 PO 10/30/20 06:00 11/07/20 06:10 Lorazepam (Ativan) 2 mg ASDIRECTED PRN PO SEE PROTOCOL 10/29/20 17:15 11/01/20 06:08 DC 10/30/20 22:12 Lurasidone HCl (Latuda) 80 mg DAILY@18 PO 10/30/20 18:00 11/06/20 17:18 Magnesium Hydroxide (Milk Of Magnesia) 30 ml DAILYPRN PRN PO CONSTIPATION 10/29/20 14:30 Multivitamins (Theragram-M) 1 tab DAILY PO 10/30/20 09:00 11/01/20 06:08 DC 10/31/20 08:44 Naltrexone HCl (Revia) 50 mg DAILY PO 11/04/20 14:40 11/07/20 08:58 Nicotine (Nicorette) 2 mg Q4HP PRN PO NICOTINE WITHDRAWAL 10/29/20 20:15 11/07/20 08:58 Paroxetine HCl (PAXil) 20 mg DAILY PO 10/30/20 17:00 11/06/20 13:02 DC 11/06/20 09:34 Paroxetine HCl (PAXil) 40 mg DAILY PO 11/07/20 09:00 11/07/20 08:58 Tamsulosin HCl (Flomax) 0.4 mg QHS PO 10/30/20 21:00 11/06/20 21:29 Thiamine HCl (Thiamine HCl) 100 mg BID PO 10/29/20 18:00 11/01/20 06:08 DC 10/31/20 20:02 Trazodone HCl (Desyrel) 50 mg QHSP PRN PO INSOMNIA 10/29/20 14:30 11/06/20 21:29 Allergies Coded Allergies: No Known Allergies (Verified Allergy, Unknown, 01/30/19) PUSHPA GUADALUPE MD Nov 07, 2020 17:47
[2020-11-07] MEDS: TAMSULOSIN 0.4 MG CAP PO SCH (20:51)
[2020-11-07] MEDS: traZODone 50 MG TAB PO PRN (20:52)
[2020-11-08] MEDS: LEVOTHYROXINE 75MCG TABLET (0.075MG) PO SCH (06:05)
[2020-11-08 06:31] VITALS: BP 133/72
[2020-11-08] MEDS: buPROPion (WELLBUTRIN SR) 100 MG SR TAB PO SCH ×2 (09:30→21:10)
[2020-11-08] MEDS: IRBESARTAN 150MG TAB PO SCH (09:31)
[2020-11-08] MEDS: PARoxetine 20MG TABLET PO SCH (09:32)
[2020-11-08] MEDS: hydrOXYzine 50 MG TAB PO PRN (09:32)
[2020-11-08] MEDS: NICOTINE POLACRILEX 2 MG GUM PO PRN (09:32)
[2020-11-08] MEDS: NALTREXONE 50 MG TAB PO SCH (09:32)
[2020-11-08] MEDS: busPIRone 10 MG TAB PO SCH ×2 (09:32→21:10)
[2020-11-08 16:41] VITALS: BP 106/60
[2020-11-08] MEDS: LURASIDONE HCL 40 MG TAB (LATUDA) PO SCH (17:37)
[2020-11-08] MEDS: traZODone 50 MG TAB PO PRN (21:10)
[2020-11-08] MEDS: TAMSULOSIN 0.4 MG CAP PO SCH (21:10)
[2020-11-09] MEDS: LEVOTHYROXINE 75MCG TABLET (0.075MG) PO SCH (06:17)
[2020-11-09 07:35] VITALS: BP 106/56
[2020-11-09] MEDS: NICOTINE POLACRILEX 2 MG GUM PO PRN ×2 (08:35→14:05)
[2020-11-09] MEDS: buPROPion (WELLBUTRIN SR) 100 MG SR TAB PO SCH ×2 (08:37→20:45)
[2020-11-09] MEDS: busPIRone 10 MG TAB PO SCH ×2 (08:37→20:45)
[2020-11-09] MEDS: NALTREXONE 50 MG TAB PO SCH (08:37)
[2020-11-09] MEDS: PARoxetine 20MG TABLET PO SCH (08:37)
[2020-11-09] MEDS: IRBESARTAN 150MG TAB PO SCH (08:37)
[2020-11-09 16:42] VITALS: BP 140/89
[2020-11-09] MEDS: LURASIDONE HCL 40 MG TAB (LATUDA) PO SCH (17:40)
[2020-11-09] MEDS: traZODone 50 MG TAB PO PRN (20:45)
[2020-11-09] MEDS: TAMSULOSIN 0.4 MG CAP PO SCH (20:45)
[2020-11-10 06:01] VITALS: BP 118/63
[2020-11-10] MEDS: LEVOTHYROXINE 75MCG TABLET (0.075MG) PO SCH (06:17)
[2020-11-10 08:52] VITALS: BP 122/68
[2020-11-10] MEDS: buPROPion (WELLBUTRIN SR) 100 MG SR TAB PO SCH (08:52)
[2020-11-10] MEDS: IRBESARTAN 150MG TAB PO SCH (08:52)
[2020-11-10] MEDS: NALTREXONE 50 MG TAB PO SCH (08:52)
[2020-11-10] MEDS: busPIRone 10 MG TAB PO SCH (08:52)
[2020-11-10] MEDS: PARoxetine 20MG TABLET PO SCH (08:52)
[2020-11-10] MEDS: NICOTINE POLACRILEX 2 MG GUM PO PRN (08:52)
[2020-11-10] MEDS: hydrOXYzine 50 MG TAB PO PRN (10:25)
[2020-11-10] MEDS ORDERED: PARO20TA3 PO (10:59)
[2020-11-10] MEDS ORDERED: TRAZ-252 PO (10:59)
[2020-11-10] MEDS ORDERED: NALT50TA4 PO (10:59)
[2020-11-10] MEDS ORDERED: NICO21PAT TD (10:59)
[2020-11-10] MEDS ORDERED: BUSP10TA PO (10:59)
[2020-11-10] MEDS ORDERED: BUPR100T3 PO (10:59)
--- NOTE | 2020-11-10 19:57 | MHDSPDOC ---
[facility] Discharge Summary Discharge Summary DATE OF ADMISSION: Oct 29, 2020 at 17:17 DATE OF DISCHARGE: Nov 10, 2020 at 12:59 DISCHARGE DIAGNOSES: 1. Major depressive disorder, recurrent, moderate 2. Alcohol use disorder, severe 3. Tobacco use disorder 4. cocaine use disorder, moderate 5. opioid use disorder in remission 7. Cannabis use disorder REASON FOR ADMISSION: Transferred from medicine (treated for hypertensive crisis) after he was stabilized for acute alcohol withdrawal due to severe depression and suicidal thoughts, had not been taking outpatient medications of xanax, latuda and welbutrin and had been drinking heavily and using cocaine for several months. CONSULTANTS INVOLVED: See medical H and P by hospitalist TREATMENT AND PROGRESS ON THE UNIT : Patient was admitted to the [facility] on a 9.39 legal status and she was afforded the following treatment modalities: 1. individual therapy 2.Group therapy 3. medication management 4. Milieu therapy 5. Safe environment 6. Addictions education, counseling 7. Supportive and motivational interviewing HOSPITAL COURSE: Patient was admitted on a 9.39 legal status from medical floor after being medically cleared post hypertensive crisis. Was placed on CIWA protocol, given thiamine and multi vitamin. Basic labs were reviewed, ALT and AST wnl, was positive for cocaine and cannabis, was restarted on home latuda and wellbutrin. Attended groups. Was also started on paxil which was titrated up to 40 mg with improvement in mood. Initially was withdrawn and depressed, also high generalized anxiety was present. Buspirone was increased to 10 mg po bid with good effect on anxiety, naltrexone 50 mg po daily for alcohol cravings was ordered, reported reduced cravings after several days of starting which also reduced anxiety about discharge. Collaborated with social work for safe discharge and 2 referrals were made to inpatient rehab programs, had concerns about insurance covering stay and was rejected from first application, with long waitlist for second. Due to symptomatic improvement during stay and lack of suicidal ideations, intent or plan and reduced drug craving with education, therapy and motivational interviewing felt ready to go to [facility] outpatient rehab instead, coordinated with social work on safety planning and patient felt ready to leave prior to discharge, refused continued stay to wait for inpatient rehab placement despite being offered. DISCHARGE ASSESSMENT: Prior to discharge on today's interview, is alert and oriented, dressed appropriately for weather, hygiene and grooming good, denies depression, anxiety or drug cravings, denies suicidal or homicidal ideation, intent or plan. Denies and is not observed to have signs of flor or psychosis, impulsivity, hallucination, intrusive thoughts, bizarre behavior, illogical thoughts. Insight and judgement are improved.Patient has normal mentation. Patient encouraged to return to hospital or call crisis line if feels he is unsafe or symptoms change or worsen, encouraged to call unit if needs to speak to provider for questions regarding medications or care. Declined further hos pital stay despite being offered. Consults for safety and feels will be safe if returns home and go to addictions treatment and call crisis line or counseling center if has urges to use. Aware of risk for seizure if using alcohol while taking wellbutrin or using cocaine with wellbutrin for hypertensive crisis or arrhythmia and risk for elevated liver enzymes while drinking and using naltrexone. MENTAL STATUS EXAMINATION ON DISCHARGE: Patient is a 45-year old male, who appears older than stated age, glasses, curly hair, balding, thin, improved hygiene, improved eye contact. Speech: Is normal rate, rhythm, volume, normal prosody Language skills are intact Thought processes including: linear, logical Thought content: Denies suicidal ideation, intent or plan, denies drug cravings Abstract reasoning, and computation: intact. Description of associations:normal Description of abnormal or psychotic thoughts: denies. Judgment: Improved Insight: Good Orientation: A/O x3 Recent and remote memory: intact Attention span and concentration: fair Language: intact, Wolof Fund of knowledge: average based on interview Mood: "good" Affect: Euthymic, stable, congruent to mood, appropriate MEDICATIONS ON DISCHARGE: see medication reconciliation PLAN/FOLLOWUP ARRANGEMENTS: Follow Up Care Education Label * Chemical Dependency Appt1 * Chemical Dependency [facility] * Address of Clinic or Practice [address] [place] [address] * * Additional information Walk in hours Tuesday through Tuesday from 8am to 4pm. Follow Up Care Education Label * Chemical Dependency Appt2 * Chemical Dependency [facility] * Address of Clinic or Practice [address] [place] [address] * * Additional information Walk in hours Tuesday through Tuesday from 730am to 1230pm Follow Up Care Education Label * Mental Health Appt 1 * Mental Health Dr. Gonsalves * Established With This Provider Yes * Therapist Dr. Gonsalves * Date Nov 18, 2020 * Time 10:00 Follow Up Care Education Label * Medical * Additional information Pt declined medical follow up CSSRS: Wish to be : no Non-specific active suicidal thoughts: no lifetime attempts: none Interrupted attempts: none Aborted attempts: none Preparatory acts or behavior: none Taking into consideration safety state, status, modifiable and non-modifiable risk factors, pt is at chronically elevated risk on discharge according to the Kendall suicide severity scale. The amount of time spent in the coordination of care for this patient was approximately 30 minutes. ETOH/Disorder Med Rx ETOH/DRUG DISORDER RX: Given to pt at d/c Vital Signs/I&Os Vital Signs Date Time Temp Pulse Resp B/P (MAP) Pulse Ox O2 Delivery O2 Flow Rate FiO2 11/10/20 08:52 122/68 11/10/20 06:01 99.1 55 17 11/09/20 16:42 100 Room Air Medications Scheduled Bupropion Hcl (Bupropion HCl Sr) 100 Mg Tab.sr.12h, 100 MG PO BID for depression, #7 Buspirone HCl (Buspirone HCl) 10 Mg Tablet, 10 MG PO BID for anxiety, #7 Irbesartan (Irbesartan) 150 Mg Tablet, 150 MG PO DAILY, (Reported) Levothyroxine Sodium (Levothyroxine Sodium) 75 Mcg Tablet, 75 MCG PO DAILY, (Reported) Lurasidone HCl (Latuda) 80 Mg Tablet, 80 MG PO QPM, (Reported) Naltrexone HCl (Naltrexone HCl) 50 Mg Tablet, 50 MG PO DAILY for alcohol dependence, #7 Nicotine (Nicotine Patch) 21 Mg Patch.td24, 1 PATCH TD DAILY for tobacco use for 30 Days, #30 Paroxetine HCl (Paroxetine HCl) 20 Mg Tablet, 40 MG PO DAILY for depression, #7 Tamsulosin HCl (Flomax) 0.4 Mg Capsule, 0.4 MG PO QPM, (Reported) Scheduled PRN Sumatriptan Succinate (Sumatriptan Succinate) 4 Mg/0.5 Ml Cartridge, 4 MG SC BID PRN for MIGRAINE, (Reported) Trazodone HCl (Trazodone HCl) 50 Mg Tablet, 50 MG PO QHSP PRN for INSOMNIA, #7 Allergies Coded Allergies: No Known Allergies (Verified Allergy, Unknown, 01/30/19) PUSHPA GUADALUPE MD Nov 10, 2020 19:57
== END 2020-11-10 12:59 | disposition home or self-care (01) | DRG 885 ==
LOC: M PSY 17:17
PROVIDERS: ADMIT Psychiatry & Neurology Psychiatry; ATTEND Student in an Organized Health Care Education/Training Program
DX: F33.1 Major depressive disorder, recurrent, moderate (principal); F14.20 Cocaine dependence, uncomplicated; F11.21 Opioid dependence, in remission; F10.20 Alcohol dependence, uncomplicated; E03.9 Hypothyroidism, unspecified; K21.9 Gastro-esophageal reflux disease without esophagitis; N40.0 Benign prostatic hyperplasia without lower urinary tract symptoms; N28.1 Cyst of kidney, acquired; E78.5 Hyperlipidemia, unspecified; Z79.899 Other long term (current) drug therapy; F17.200 Nicotine dependence, unspecified, uncomplicated; F12.10 Cannabis abuse, uncomplicated

== ENCOUNTER 2020-11-15 11:03 | Emergency (ER) | payer MEDICARE ==
[~2020-11-15] VITALS: Ht 175.3 cm; Wt 71.9 kg
[~2020-11-15 11:03] MED LIST changes: +BUSP10TA PO; +NALT50TA4 PO; +PARO20TA3 PO; +TRAZ-252 PO
[2020-11-15] MEDS ORDERED: VERA120T83 (11:48)
[2020-11-15 13:18] LABS: BASO # 0.1 10^3/uL (0.0-0.2); BASO % 0.5 % (0.0-1.0); EOS # 0.2 10^3/uL (0.0-0.5); EOS % 1.2 % (0.0-3.0); HEMATOCRIT 44.7 % (42.0-52.0); HEMOGLOBIN 16.1 g/dl (13.5-17.5); LYMPH # 2.6 10^3/uL (1.5-5.0); LYMPH % 20.5 % (24.0-44.0); MEAN CORPUSCULAR HEMOGLOBIN 31.9 pg (27.0-33.0); MEAN CORPUSCULAR VOLUME 88.7 fl (80.0-96.0); MONO # 0.8 10^3/uL (0.0-0.8); MONO % 6.1 % (2.0-8.0); NEUTROPHILS # 9.2 10^3/uL (1.5-8.5); NEUTROPHILS % 71.3 % (36.0-66.0); PLATELET COUNT, AUTOMATED 241 10^3/uL (150-450); RED BLOOD COUNT 5.04 10^6/uL (4.30-6.10); WHITE BLOOD COUNT 12.9 10^3/uL (4.0-10.0)
[2020-11-15 13:42] LABS: ALBUMIN 3.9 GM/DL (3.2-5.2); ALT/SGPT 37 U/L (12-78); BILIRUBIN,TOTAL 0.6 MG/DL (0.2-1.0); BLOOD UREA NITROGEN 4 MG/DL (7-18); CALCIUM LEVEL 9.4 MG/DL (8.5-10.1); CARBON DIOXIDE LEVEL 28 MEQ/L (21-32); CHLORIDE LEVEL 107 MEQ/L (98-107); CREATININE FOR GFR 0.67 MG/DL (0.70-1.30); GLOMERULAR FILTRATION RATE > 60.0 (>60); GLUCOSE, FASTING 80 MG/DL (70-100); MAGNESIUM LEVEL 1.9 MG/DL (1.8-2.4); POTASSIUM SERUM 3.9 MEQ/L (3.5-5.1); SODIUM LEVEL 140 MEQ/L (136-145)
[2020-11-15 13:52] LABS: AMPHETAMINES LEVEL URINE NEGATIVE (NEGATIVE); BARBITURATES URINE NEGATIVE (NEGATIVE); BENZODIAZEPINES URINE NEGATIVE (NEGATIVE); CANNABINOIDS URINE NEGATIVE (NEGATIVE); COCAINE METABOLITE URINE NEGATIVE (NEGATIVE); METHADONE URINE NEGATIVE (NEGATIVE); OPIATES URINE NEGATIVE (NEGATIVE); PHENCYCLIDINE URINE NEGATIVE (NEGATIVE)
[2020-11-15 15:48] VITALS: BP 138/85
--- NOTE | 2020-11-15 20:34 | ECGEPIP ---
[facility] - ED Test Date: 2020-11-15 Pat Name: CORONA SUTTON Department: Room: - Gender: Male [employer] Operator: JOSESITO : 1975 Requested By: Brook Metcalf Order Number: [id number] Reading MD: Wm Erwin Measurements Intervals [place] Rate: 59 P: 23 ID: [id number] QRS: 26 QRSD: 102 T: 42 QT: 432 QTc: 427 Interpretive Statements Sinus bradycardia Similar to tracing done 10-27-20 Electronically Signed on 11-15-2020 20:33:33 EDT by Wm Erwin
== END 2020-11-15 15:57 | disposition home or self-care (01) ==
LOC: M ED 11:03
DX: F19.90 Other psychoactive substance use, unspecified, uncomplicated (principal); R22.0 Localized swelling, mass and lump, head; R00.1 Bradycardia, unspecified; I10 Essential (primary) hypertension; F41.9 Anxiety disorder, unspecified; G44.009 Cluster headache syndrome, unspecified, not intractable; Z79.899 Other long term (current) drug therapy

== ENCOUNTER 2020-11-29 15:09 | Emergency (ER) | payer MEDICARE ==
[~2020-11-29] VITALS: Ht 175.3 cm; Wt 70.9 kg
[~2020-11-29 15:09] MED LIST changes: +VERA120T83
--- NOTE | 2020-11-29 17:39 | REP ---
INDICATION: pain in lungs after inhaling a flame COMPARISON: 01/02/2018. TECHNIQUE: PA/Lateral FINDINGS: Lungs: Clear, no infiltrate. Heart: Normal in size. Mediastinum: Mediastinal silhouette unremarkable. Pleural angles: Unremarkable.. Bones and soft tissues: Unremarkable. IMPRESSION: No acute pulmonary disease. <Electronically signed by Jean Romero > 11/29/20 [id number]
--- NOTE | 2020-11-29 17:40 | REP ---
INDICATION: pain in lungs after inhaling a flame. COMPARISON: None. TECHNIQUE: Three views soft tissues neck. FINDINGS: The adenoids are not enlarged. There is no prevertebral soft tissue swelling. There is no narrowing of any portion of the airway. The epiglottis is normal in size. There are mild degenerative changes of the C5-6 and C6-7 discs. IMPRESSION: Essentially negative exam soft tissues neck. Mild degenerative changes C5-6 and C6-7. <Electronically signed by Jean Romero > 11/29/20 [id number]
[2020-11-29 18:31] VITALS: BP 107/55
== END 2020-11-29 18:36 | disposition home or self-care (01) ==
LOC: M ED 15:09
DX: T28.0XXA Burn of mouth and pharynx, initial encounter (principal); R05 Cough; R07.89 Other chest pain; X58.XXXA Exposure to other specified factors, initial encounter; Y92.511 Restaurant or cafe as the place of occurrence of the external cause; I10 Essential (primary) hypertension; F17.200 Nicotine dependence, unspecified, uncomplicated; Z79.899 Other long term (current) drug therapy

== ENCOUNTER 2020-12-01 19:18 | Inpatient (IN) | payer MEDICARE ==
[~2020-12-01] VITALS: Ht 175.3 cm; Wt 76.2 kg
[2020-12-01] VITALS (12 sets, daily range): BP systolic 71–133; BP diastolic 28–78
[~2020-12-01 19:18] MED LIST changes: -LATU80TA PO; +LATU80TA2 PO; +SUMA4CAR SC; -SUMA4INJ4 SC; -VERA120T83; +VERA120T83 PO
[2020-12-01] MEDS ORDERED: ATROPINE SULF 1MG/10ML SYRINGE (J0461) IV STA (19:21)
[2020-12-01] MEDS ORDERED: NS 1,000 ML IV ONE ×2 (19:25)
[2020-12-01 19:42] LABS: BASO # 0.1 10^3/uL (0.0-0.2); BASO % 0.8 % (0.0-1.0); EOS # 0.3 10^3/uL (0.0-0.5); EOS % 2.4 % (0.0-3.0); HEMATOCRIT 39.4 % (42.0-52.0); HEMOGLOBIN 13.7 g/dl (13.5-17.5); LYMPH # 3.2 10^3/uL (1.5-5.0); LYMPH % 29.9 % (24.0-44.0); MEAN CORPUSCULAR HEMOGLOBIN 31.5 pg (27.0-33.0); MEAN CORPUSCULAR HGB CONC 34.8 g/dl (32.0-36.5); MEAN CORPUSCULAR VOLUME 90.6 fl (80.0-96.0); MONO % 9.4 % (2.0-8.0); NEUTROPHILS # 5.9 10^3/uL (1.5-8.5); NEUTROPHILS % 56.3 % (36.0-66.0); PLATELET COUNT, AUTOMATED 224 10^3/uL (150-450); RED BLOOD COUNT 4.35 10^6/uL (4.30-6.10); WHITE BLOOD COUNT 10.5 10^3/uL (4.0-10.0)
[2020-12-01] MEDS ORDERED: CALCIUM GLUCONATE 1,000 MG in D5W MINI-BAG PLUS 100 ML IV ONE (20:00)
[2020-12-01] MEDS ORDERED: CHARCOAL ACTIVATED LIQUID 25 GM/120 ML BTL PO ONE (20:00)
[2020-12-01 20:13] LABS: OSMOLALITY SERUM 302 MOSM/KG (275-295)
[2020-12-01 20:31] LABS: ACETAMINOPHEN LEVEL < 2.0 UG/ML (10.0-30.0); ALBUMIN 2.7 GM/DL (3.2-5.2); ALT/SGPT 32 U/L (12-78); BILIRUBIN,DIRECT < 0.1 MG/DL (0.0-0.2); BILIRUBIN,TOTAL 0.2 MG/DL (0.2-1.0); BLOOD UREA NITROGEN 11 MG/DL (7-18); CALCIUM LEVEL 7.7 MG/DL (8.5-10.1); CARBON DIOXIDE LEVEL 22 MEQ/L (21-32); CHLORIDE LEVEL 108 MEQ/L (98-107); CPK CREATINE PHOSPHOKINASE 68 U/L (39-308); CREATININE FOR GFR 1.04 MG/DL (0.70-1.30); ETHYL ALCOHOL (ETHANOL) 0.003 % (0.000-0.010); GLOMERULAR FILTRATION RATE > 60.0 (>60); GLUCOSE, FASTING 216 MG/DL (70-100); POTASSIUM SERUM 3.3 MEQ/L (3.5-5.1); SALICYLATE LEVEL 2.3 MG/DL (5.0-30.0); SODIUM LEVEL 140 MEQ/L (136-145); TOTAL PROTEIN 5.5 GM/DL (6.4-8.2)
[2020-12-01] MEDS ORDERED: ONDANSETRON 4MG/2ML VIAL IV ONE (20:35)
[2020-12-01] MEDS ORDERED: MORPHINE 2 MG/ML 1ML VIAL (J2270) IV PRN (20:35)
[2020-12-01] MEDS ORDERED: DEXTROSE 50% 50 ML SYRINGE IV STA ×2 (20:39→22:10)
[2020-12-01] MEDS ORDERED: INSULIN REGULAR IN 0.9 % NACL 100 UNIT in IV 1 EA IV SCH ×2 (20:40)
[2020-12-01] MEDS ORDERED: HumuLIN R (REGULAR) INSULIN (NovoLIN R) **100U/ML** PER UNIT IV ONE (20:40)
[2020-12-01] MEDS ORDERED: SODIUM BICARBONATE 8.4% INJ 50 ML SYRINGE IV STA (21:20)
[2020-12-01] MEDS: KCL 10MEQ IN D5/0.45NS 1000ML 1,000 ML IV SCH (21:49)
[2020-12-01 22:13] LABS: BLOOD UREA NITROGEN 13 MG/DL (7-18); CALCIUM LEVEL 7.5 MG/DL (8.5-10.1); CARBON DIOXIDE LEVEL 19 MEQ/L (21-32); CHLORIDE LEVEL 111 MEQ/L (98-107); CREATININE FOR GFR 0.96 MG/DL (0.70-1.30); GLOMERULAR FILTRATION RATE > 60.0 (>60); GLUCOSE, FASTING 223 MG/DL (70-100); POTASSIUM SERUM 3.5 MEQ/L (3.5-5.1); SODIUM LEVEL 140 MEQ/L (136-145)
[2020-12-01 22:31] LABS: RSV AMPLIFICATION NEGATIVE (NEGATIVE)
[2020-12-01] MEDS ORDERED: LIDOCAINE 1% SDV 30ML VIAL SC SCH (22:35)
[2020-12-01 22:41] LABS: MAGNESIUM LEVEL 1.6 MG/DL (1.8-2.4)
[2020-12-01] MEDS ORDERED: LIDOCAINE 1% MDV 20ML VIAL SC SCH (22:47)
[2020-12-02] VITALS (59 sets, daily range): BP systolic 101–151; BP diastolic 56–83
[2020-12-02] MEDS ORDERED: DEXTROSE 50% 50 ML SYRINGE IV STA ×3 (00:16→07:52)
[2020-12-02] MEDS ORDERED: NOREPINEPHRINE BITARTRATE 8 MG in D5W 492 ML IV SCH ×2 (00:20→01:00)
[2020-12-02] MEDS: KCL 10MEQ IN D5/0.45NS 1000ML 1,000 ML IV SCH (01:03)
[2020-12-02 01:17] LABS: BLOOD UREA NITROGEN 11 MG/DL (7-18); CARBON DIOXIDE LEVEL 25 MEQ/L (21-32); CHLORIDE LEVEL 110 MEQ/L (98-107); CREATININE FOR GFR 0.76 MG/DL (0.70-1.30); GLOMERULAR FILTRATION RATE > 60.0 (>60); GLUCOSE, FASTING 38 MG/DL (70-100); MAGNESIUM LEVEL 1.7 MG/DL (1.8-2.4); POTASSIUM SERUM 3.2 MEQ/L (3.5-5.1); SODIUM LEVEL 141 MEQ/L (136-145)
[2020-12-02] MEDS ORDERED: POTASSIUM CHLORIDE 10% LIQ 20 MEQ/15 ML UDC PO ONE (01:20)
[2020-12-02] MEDS: POTASSIUM CHLORIDE INJ 20 MEQ in D10W/0.45% SODIUM CHLORIDE 1,000 ML IV SCH ×4 (01:25→14:52)
[2020-12-02] MEDS: INSULIN IV RATE CHANGE DOCUMENTATION ML/HR XX SCH ×2 (02:29→07:56)
[2020-12-02 03:08] LABS: BLOOD UREA NITROGEN 10 MG/DL (7-18); CALCIUM LEVEL 8.2 MG/DL (8.5-10.1); CARBON DIOXIDE LEVEL 28 MEQ/L (21-32); CHLORIDE LEVEL 110 MEQ/L (98-107); CREATININE FOR GFR 0.67 MG/DL (0.70-1.30); GLOMERULAR FILTRATION RATE > 60.0 (>60); GLUCOSE, FASTING 58 MG/DL (70-100); MAGNESIUM LEVEL 1.7 MG/DL (1.8-2.4); POTASSIUM SERUM 3.7 MEQ/L (3.5-5.1); SODIUM LEVEL 143 MEQ/L (136-145)
[2020-12-02] MEDS ORDERED: MAG SULF 1GM/100ML (MAG RUN) 1 GM in IV 1 EA IV ONE (03:15)
[2020-12-02 05:18] LABS: BLOOD UREA NITROGEN 9 MG/DL (7-18); CALCIUM LEVEL 7.7 MG/DL (8.5-10.1); CARBON DIOXIDE LEVEL 23 MEQ/L (21-32); CHLORIDE LEVEL 111 MEQ/L (98-107); CREATININE FOR GFR 0.56 MG/DL (0.70-1.30); GLOMERULAR FILTRATION RATE > 60.0 (>60); GLUCOSE, FASTING 133 MG/DL (70-100); MAGNESIUM LEVEL 2.5 MG/DL (1.8-2.4); POTASSIUM SERUM 4.1 MEQ/L (3.5-5.1); SODIUM LEVEL 141 MEQ/L (136-145)
[2020-12-02 06:50] LABS: BLOOD UREA NITROGEN 7 MG/DL (7-18); CALCIUM LEVEL 7.7 MG/DL (8.5-10.1); CARBON DIOXIDE LEVEL 26 MEQ/L (21-32); CHLORIDE LEVEL 113 MEQ/L (98-107); CREATININE FOR GFR 0.52 MG/DL (0.70-1.30); GLOMERULAR FILTRATION RATE > 60.0 (>60); GLUCOSE, FASTING 82 MG/DL (70-100); MAGNESIUM LEVEL 2.2 MG/DL (1.8-2.4); POTASSIUM SERUM 3.9 MEQ/L (3.5-5.1); SODIUM LEVEL 142 MEQ/L (136-145)
[2020-12-02 08:39] LABS: BASO % 0.4 % (0.0-1.0); EOS # 0.1 10^3/uL (0.0-0.5); EOS % 0.9 % (0.0-3.0); HEMATOCRIT 35.2 % (42.0-52.0); HEMOGLOBIN 12.2 g/dl (13.5-17.5); LYMPH # 1.5 10^3/uL (1.5-5.0); LYMPH % 17.8 % (24.0-44.0); MEAN CORPUSCULAR HEMOGLOBIN 31.4 pg (27.0-33.0); MEAN CORPUSCULAR HGB CONC 34.7 g/dl (32.0-36.5); MEAN CORPUSCULAR VOLUME 90.7 fl (80.0-96.0); MONO # 0.6 10^3/uL (0.0-0.8); MONO % 6.6 % (2.0-8.0); NEUTROPHILS # 6.2 10^3/uL (1.5-8.5); NEUTROPHILS % 73.4 % (36.0-66.0); PLATELET COUNT, AUTOMATED 182 10^3/uL (150-450); RED BLOOD COUNT 3.88 10^6/uL (4.30-6.10); WHITE BLOOD COUNT 8.5 10^3/uL (4.0-10.0)
[2020-12-02] MEDS: CHLORHEXIDINE GLUCONATE 0.12 % 15ML UDC (PERIDEX ORAL RINSE) MT SCH ×2 (08:54→20:27)
[2020-12-02] MEDS: ENOXAPARIN 40MG/0.4ML SYRINGE (J1650 PER 10MG) SC SCH (08:58)
[2020-12-02] MEDS ORDERED: LORazepam 2 MG/ML VIAL IV PRN (09:05)
[2020-12-02] MEDS ORDERED: LORazepam 2 MG TAB PO PRN (09:05)
[2020-12-02 09:10] LABS: BLOOD UREA NITROGEN 6 MG/DL (7-18); CALCIUM LEVEL 7.7 MG/DL (8.5-10.1); CARBON DIOXIDE LEVEL 24 MEQ/L (21-32); CHLORIDE LEVEL 112 MEQ/L (98-107); CREATININE FOR GFR 0.62 MG/DL (0.70-1.30); GLOMERULAR FILTRATION RATE > 60.0 (>60); GLUCOSE, FASTING 305 MG/DL (70-100); MAGNESIUM LEVEL 2.1 MG/DL (1.8-2.4); POTASSIUM SERUM 3.6 MEQ/L (3.5-5.1); SODIUM LEVEL 141 MEQ/L (136-145)
[2020-12-02 10:37] LABS: BLOOD UREA NITROGEN 5 MG/DL (7-18); CALCIUM LEVEL 7.9 MG/DL (8.5-10.1); CARBON DIOXIDE LEVEL 25 MEQ/L (21-32); CHLORIDE LEVEL 114 MEQ/L (98-107); CREATININE FOR GFR 0.49 MG/DL (0.70-1.30); GLOMERULAR FILTRATION RATE > 60.0 (>60); GLUCOSE, FASTING 118 MG/DL (70-100); POTASSIUM SERUM 3.7 MEQ/L (3.5-5.1); SODIUM LEVEL 142 MEQ/L (136-145)
[2020-12-02] MEDS: MULTIVITAMINS/MINERALS THERAP 1 TAB PO SCH (11:06)
[2020-12-02] MEDS: FOLIC ACID 1 MG TAB PO SCH (11:06)
[2020-12-02] MEDS: THIAMINE 100 MG TAB PO SCH ×2 (11:06→20:27)
[2020-12-02] MEDS: LORazepam 2 MG/ML VIAL IV PRN ×3 (11:06→21:42)
[2020-12-02 12:59] LABS: BLOOD UREA NITROGEN 4 MG/DL (7-18); CALCIUM LEVEL 7.7 MG/DL (8.5-10.1); CARBON DIOXIDE LEVEL 24 MEQ/L (21-32); CHLORIDE LEVEL 111 MEQ/L (98-107); CREATININE FOR GFR 0.56 MG/DL (0.70-1.30); GLOMERULAR FILTRATION RATE > 60.0 (>60); GLUCOSE, FASTING 147 MG/DL (70-100); POTASSIUM SERUM 3.7 MEQ/L (3.5-5.1); SODIUM LEVEL 140 MEQ/L (136-145)
[2020-12-02] MEDS ORDERED: ALPR1TAB3 PO (14:57)
[2020-12-02] MEDS ORDERED: BUSP10TA PO (14:57)
[2020-12-02] MEDS ORDERED: PARO20TA3 PO (14:57)
[2020-12-02] MEDS ORDERED: BUPR100T3 PO (14:57)
[2020-12-02] MEDS ORDERED: TRAZ-252 PO (14:58)
[2020-12-02] MEDS ORDERED: HOME MED LIST COMPLETE! XX SCH (15:00)
[2020-12-02] MEDS: NICOTINE POLACRILEX 2 MG GUM PO PRN (20:31)
[2020-12-03] VITALS (18 sets, daily range): BP systolic 121–181; BP diastolic 67–93
[2020-12-03] MEDS ORDERED: LORazepam 2 MG/ML VIAL As Ordered ONE ×3 (02:18→17:06)
[2020-12-03] MEDS: LORazepam 2 MG/ML VIAL IV PRN ×4 (02:23→17:09)
[2020-12-03 05:47] LABS: BASO # 0.1 10^3/uL (0.0-0.2); BASO % 0.6 % (0.0-1.0); EOS # 0.1 10^3/uL (0.0-0.5); EOS % 1.2 % (0.0-3.0); HEMATOCRIT 37.6 % (42.0-52.0); MEAN CORPUSCULAR HEMOGLOBIN 31.4 pg (27.0-33.0); MEAN CORPUSCULAR HGB CONC 34.6 g/dl (32.0-36.5); MEAN CORPUSCULAR VOLUME 90.8 fl (80.0-96.0); MONO # 0.6 10^3/uL (0.0-0.8); MONO % 7.6 % (2.0-8.0); NEUTROPHILS # 4.9 10^3/uL (1.5-8.5); NEUTROPHILS % 63.3 % (36.0-66.0); PLATELET COUNT, AUTOMATED 221 10^3/uL (150-450); RED BLOOD COUNT 4.14 10^6/uL (4.30-6.10); WHITE BLOOD COUNT 7.7 10^3/uL (4.0-10.0)
[2020-12-03 06:25] LABS: BLOOD UREA NITROGEN 6 MG/DL (7-18); CARBON DIOXIDE LEVEL 24 MEQ/L (21-32); CHLORIDE LEVEL 113 MEQ/L (98-107); GLOMERULAR FILTRATION RATE > 60.0 (>60); GLUCOSE, FASTING 83 MG/DL (70-100); POTASSIUM SERUM 4.1 MEQ/L (3.5-5.1); SODIUM LEVEL 142 MEQ/L (136-145)
[2020-12-03] MEDS: MULTIVITAMINS/MINERALS THERAP 1 TAB PO SCH (08:43)
[2020-12-03] MEDS: THIAMINE 100 MG TAB PO SCH ×2 (08:44→21:27)
[2020-12-03] MEDS: FOLIC ACID 1 MG TAB PO SCH (08:44)
[2020-12-03] MEDS: ENOXAPARIN 40MG/0.4ML SYRINGE (J1650 PER 10MG) SC SCH (08:44)
[2020-12-03] MEDS: NICOTINE POLACRILEX 2 MG GUM PO PRN ×2 (10:59→17:12)
[2020-12-03] MEDS: OXAZEPAM 15 MG CAP PO SCH ×2 (14:32→21:27)
[2020-12-04] VITALS (7 sets, daily range): BP systolic 106–166; BP diastolic 56–81
[2020-12-04 05:18] LABS: BASO % 0.5 % (0.0-1.0); EOS # 0.1 10^3/uL (0.0-0.5); EOS % 1.5 % (0.0-3.0); HEMATOCRIT 38.9 % (42.0-52.0); HEMOGLOBIN 13.7 g/dl (13.5-17.5); LYMPH # 2.6 10^3/uL (1.5-5.0); LYMPH % 32.4 % (24.0-44.0); MEAN CORPUSCULAR HEMOGLOBIN 31.4 pg (27.0-33.0); MEAN CORPUSCULAR HGB CONC 35.2 g/dl (32.0-36.5); MEAN CORPUSCULAR VOLUME 89.2 fl (80.0-96.0); MONO # 0.6 10^3/uL (0.0-0.8); NEUTROPHILS # 4.5 10^3/uL (1.5-8.5); NEUTROPHILS % 57.1 % (36.0-66.0); PLATELET COUNT, AUTOMATED 251 10^3/uL (150-450); RED BLOOD COUNT 4.36 10^6/uL (4.30-6.10); WHITE BLOOD COUNT 7.9 10^3/uL (4.0-10.0)
[2020-12-04] MEDS: OXAZEPAM 15 MG CAP PO SCH (05:32)
[2020-12-04 05:38] LABS: BLOOD UREA NITROGEN 6 MG/DL (7-18); CALCIUM LEVEL 8.2 MG/DL (8.5-10.1); CARBON DIOXIDE LEVEL 24 MEQ/L (21-32); CHLORIDE LEVEL 108 MEQ/L (98-107); CREATININE FOR GFR 0.68 MG/DL (0.70-1.30); GLOMERULAR FILTRATION RATE > 60.0 (>60); GLUCOSE, FASTING 90 MG/DL (70-100); SODIUM LEVEL 144 MEQ/L (136-145)
[2020-12-04] MEDS ORDERED: LEVOTHYROXINE 75MCG TABLET (0.075MG) PO SCH (06:00)
[2020-12-04] MEDS: ENOXAPARIN 40MG/0.4ML SYRINGE (J1650 PER 10MG) SC SCH (07:40)
[2020-12-04] MEDS: MULTIVITAMINS/MINERALS THERAP 1 TAB PO SCH (07:41)
[2020-12-04] MEDS: THIAMINE 100 MG TAB PO SCH (07:41)
[2020-12-04] MEDS: FOLIC ACID 1 MG TAB PO SCH (07:41)
[2020-12-04] MEDS ORDERED: IRBESARTAN 150MG TAB PO SCH (09:00)
[2020-12-04] MEDS ORDERED: VITMTA PO (12:12)
[2020-12-04] MEDS ORDERED: FOLI1TAB11 PO (12:12)
[2020-12-04] MEDS ORDERED: OXAZ15CA4 PO (12:12)
[2020-12-04] MEDS ORDERED: THIA100TA PO (12:12)
[2020-12-04] MEDS ORDERED: OXAZEPAM 15 MG CAP PO SCH (18:00)
[2020-12-04] MEDS ORDERED: TAMSULOSIN 0.4 MG CAP PO SCH (21:00)
[2020-12-23] MEDS ORDERED: LATU80TA2 PO (12:19)
[2020-12-23] MEDS ORDERED: VERA120T83 PO (12:19)
== END 2020-12-04 16:44 | DRG 981 ==
LOC: M ED 19:18 → M ED INP 19:19 → M PCU 22:40 → M ICU 12-02 21:55
PROVIDERS: ADMIT Internal Medicine Critical Care Medicine; ATTEND Internal Medicine
PROC: 02H Heart and Great Vessels, Insertion (ICD-10-PCS; principal; 2020-12-02)
DX: T43.1X2A Poisoning by monoamine-oxidase-inhibitor antidepressants, intentional self-harm, initial encounter (principal); R57.0 Cardiogenic shock; I44.2 Atrioventricular block, complete; F10.139 Alcohol abuse with withdrawal, unspecified; F31.9 Bipolar disorder, unspecified; I10 Essential (primary) hypertension; E87.6 Hypokalemia; E03.9 Hypothyroidism, unspecified; G44.009 Cluster headache syndrome, unspecified, not intractable; F14.10 Cocaine abuse, uncomplicated; F11.10 Opioid abuse, uncomplicated; F12.10 Cannabis abuse, uncomplicated; Z20.822 Contact with and (suspected) exposure to COVID-19; Z63.5 Disruption of family by separation and divorce; Z79.899 Other long term (current) drug therapy

== ENCOUNTER 2020-12-04 15:17 | Inpatient (IN) | payer MEDICARE ==
[~2020-12-04] VITALS: Ht 175.3 cm; Wt 71.1 kg
[~2020-12-04 15:17] MED LIST changes: +FOLI1TAB11 PO; +LATU80TA PO; -LATU80TA2 PO; +OXAZ15CA4 PO; -SUMA4CAR SC; +SUMA4INJ4 SC; +THIA100TA PO; +VITMTA PO
[2020-12-04] MEDS ORDERED: MAALOX 30 ML SUSP *UDC PO PRN (15:25)
[2020-12-04] MEDS ORDERED: LORazepam 2 MG TAB PO PRN (15:25)
[2020-12-04] MEDS ORDERED: ACETAMINOPHEN TAB 650MG DOSE (2X325MG) PO PRN (15:25)
[2020-12-04] MEDS ORDERED: MOM 30ML SUSPENSION UDC PO PRN (15:25)
[2020-12-04] MEDS ORDERED: HOME MED LIST COMPLETE! XX SCH (15:40)
[2020-12-04 17:48] VITALS: BP 131/83
[2020-12-04 18:02] VITALS: BP 131/83
[2020-12-04] MEDS ORDERED: THIAMINE 100 MG TAB PO SCH (21:00)
[2020-12-04] MEDS: OXAZEPAM 15 MG CAP PO SCH (21:01)
[2020-12-04] MEDS: TAMSULOSIN 0.4 MG CAP PO SCH (21:01)
[2020-12-04] MEDS: traZODone 50 MG TAB PO PRN (21:01)
[2020-12-04] MEDS: THIAMINE 100 MG TAB PO SCH (21:01)
[2020-12-05] MEDS: LEVOTHYROXINE 75MCG TABLET (0.075MG) PO SCH (05:39)
[2020-12-05 06:38] VITALS: BP 114/61
[2020-12-05] MEDS: NICOTINE POLACRILEX 2 MG GUM PO PRN ×3 (08:49→20:08)
[2020-12-05] MEDS: FOLIC ACID 1 MG TAB PO SCH (08:49)
[2020-12-05] MEDS: MULTIVITAMINS/MINERALS THERAP 1 TAB PO SCH (08:50)
[2020-12-05] MEDS: THIAMINE 100 MG TAB PO SCH ×2 (08:50→20:08)
[2020-12-05] MEDS: IRBESARTAN 150MG TAB PO SCH (08:51)
[2020-12-05] MEDS ORDERED: FOLIC ACID 1 MG TAB PO SCH (09:00)
[2020-12-05] MEDS ORDERED: MULTIVITAMINS/MINERALS THERAP 1 TAB PO SCH (09:00)
[2020-12-05] MEDS: OXAZEPAM 15 MG CAP PO SCH (09:41)
[2020-12-05] MEDS ORDERED: HOME MED LIST COMPLETE! XX SCH (11:05)
[2020-12-05 11:26] VITALS: BP 144/84
[2020-12-05] MEDS: busPIRone 10 MG TAB PO SCH ×2 (11:31→20:08)
[2020-12-05] MEDS: NALTREXONE 50 MG TAB PO SCH (11:31)
[2020-12-05] MEDS: PARoxetine 20MG TABLET PO SCH (11:31)
--- NOTE | 2020-12-05 11:35 | MHHPEPDOC ---
General Date Of Admission: Dec 04, 2020 Legal Status: 9.39 Chief Complaint "Took an overdose of Verapamil." History of Present Illness HISTORY OF THE PRESENT ILLNESS: Patient is a 45 -year-old single, disabled, domiciled, , male, who took an overdose of Verapamil "from what i can remember." Patient was stabilized on the medical unit for bradycardia and hemodynamic instability secondary to verapamil overdose and was transferred to psychiatry for continued observation. He reports he does not remember taking the overdose. He believes that he was not suicidal at the time, denies any depression prior to this overdose. He postulates that he may have been depressed because he does not see his kids, the mothers of the children live in other place and was sad about that. He states that he has not been suicidal for the past 2 weeks, but he believes that he may have been trying to get better sleep and took his verapamil. He shrugs his shoulder and states, "I don't know." He reports a long history of ETOH, "I can't remember if I was drinking or not" and states he has been going to [place] x 2 weeks. When asked about his mood at this time. He states his mood was uncertain, " I was in a weird spot" Patient has a long history of polysubstance abuse including opiate abuse in the past and ongoing alcohol abuse. Has a history of bipolar disorder with previous admissions last admission was in October 29 - 2020. Prior to that his last admission was in February 2020/patient was seeing a private psychiatrist and was prescribed Wellbutrin, Latuda, Paxil and Naltrexone Psychiatric Review of Systems Depression (2 or more weeks): depressed mood ("I am always in a bad mood, depressed mood"), anhedonia, feelings of excess/guilt, feelings of worthlesness (hopelessness and helplessness), decreased energy, difficulty concentrating (poor focus), psychomotor changes (slowed down), suicidal thoughts Nicole (4 or more days of): denies Psychosis: other (ringing in the ears) Anxiety: gen/non-specific anxiety Anxiety/ 6 months or more of: restlessness, keyed up, easily fatigued, difficulty concentrating, irritability Past Psychiatric History Previous Psychiatric Diagnosis: Bipolar Disorder, OCD, Generalized Anxiety Disorder Previous Psychiatric Admissions: 5-10 admissions, last hospitalization was in October 2020 Suicide Attempts: This occurrence was an overdose but he denies that this was a suicide attempt Psychiatric Follow-up: [facility]. Psychiatric medications: Wellbutrin, Paxil Latuda. Past Medical History Head Injury: No Seizures: Yes (One seizure in 2017) Hospitalizations: Yes Surgeries: Yes (Tonsils and Adenoids) Family Medical/Psychiatric HX Medical Problems Mother - HTN, Graves Disease, Skin Disorders, OCD, Depression, Psychiatric Disorders: Yes Addiction: No Suicide Attemps/Completions: No Addiction History nicotine (1 ppd), alcohol (Hadn't been drinking for awhile, but was drinking 4 beers a day), cocaine (history of, none current) Social History Childhood: Born in [place], had mother growing up. Describes his childhood as "normal and happy" except for OCD, did well in school. Younger Sister Abuse/Trauma: Trauma but doesn't report or Current Living Situation: Lives alone, in an apartment Education: 4 year degree from [employer] in [employer] Employment: [employer]SI/[employer] Social Support: Mother, Sister Legal: None Marital: Single, prior, two children Mental Status Examination General Appearance: unkempt, disheveled, hospital scubs/clothing Demeanor: withdrawn, guarded Eye Contact: average Activity: average Behavior: cooperative Speech: clear Mood: depressed, anxious Affect: constricted Thought Process: logical/linear Thought Content (Delusions): none reported Thought Content (Other): none reported Thought Content (Aggressive): none reported Perception (Hallucinations): none reported Perception (Other): none reported Cognition (Impairment of): none reported Cognition(Intelligence Est.): average Oriented: Awake, Alert, Oriented times three Insight: fair Judgment: Fair Psychosis: Denies Diagnoses Major depressive disorder, recurrent, severe Generalized anxiety disorder Obsessive-compulsive disorder Alcohol use disorder Nicotine use disorder History of opiate use disorder History of stimulant use disorder A-FIB/CHADSVASC A-FIB History Current/History of A-Fib/PAF?: No Current PO Anticoag Therapy: No Assessment Patient is a 45 -year-old single, disabled, domiciled, , male, who took an overdose of Verapamil "from what i can remember." Patient was stabilized on the medical unit for bradycardia and hemodynamic instability secondary to verapamil overdose and was transferred to psychiatry for continued observation. he reports he does not remember taking the overdose. He believes that he was not suicidal at the time, denies any depression prior to this overdose. Patient remains moderately depressed. Reports he has with ongoing alcohol abuse. He denies that he had any previous suicidal plan or intent. Reports feeling hopeless helpless and worthless. We will restart his antidepressant medications in continue with supportive therapy did stabilize. Will encourage patient to consider inpatient rehab. Patient will be afforded safe and comfortable milieu, medication management, supportive cognitive therapies, individual and group therapy and will be discharged when he is stable Initial Treatment Plan 1. Patient was admitted on a [9.39] status. 2. Complete history was obtained. 3. With patients permission, family will be contacted and database will be expanded. 4. Patients medication regimen will be reviewed and changed accordingly. 5. Patient will be provided with protected environment. 6. Patient will be treated with individual, group, and milieu therapies. 7. Patient will receive supportive psych-education. 8. Discharge planning will commence immediately. 9. Outpatient follow-up treatment will be strongly recommended. 10. The initial treatment plan will focus initially on: * Depression. * Risk for suicide. * Substance use * Compliance with treatment ESTIMATED LENGTH OF STAY: 3-5DAYS. TIME SPENT COUNSELING AND COORDINATING INITIAL CARE: 60 minutes. Tobacco Cessation Screen Tobacco Cessation Tx Ordered?: Yes Ordered/Pending Vital Signs Vital Signs Date Time Temp Pulse Resp B/P (MAP) Pulse Ox O2 Delivery O2 Flow Rate FiO2 12/05/20 08:51 125/84 12/05/20 06:38 96.7 46 12 95 Room Air Medications Scheduled Folic Acid (Folic Acid) 1 Mg Tablet, 1 MG PO DAILY Irbesartan (Irbesartan) 150 Mg Tablet, 150 MG PO DAILY, (Reported) Levothyroxine Sodium (Levothyroxine Sodium) 75 Mcg Tablet, 75 MCG PO DAILY, (Reported) Multivitamins (Thera M Plus Tablet) 1 Each Tablet, 1 TAB PO DAILY Oxazepam (Oxazepam) 15 Mg Capsule, 15 MG PO Q12H Tamsulosin HCl (Flomax) 0.4 Mg Capsule, 0.4 MG PO QHS, (Reported) Thiamine Hcl (Vitamin B-1) 100 Mg Tablet, 100 MG PO BID Scheduled PRN Sumatriptan Succinate (Sumatriptan Succinate) 4 Mg/0.5 Ml Cartridge, 4 MG SC BID PRN for MIGRAINE, (Reported) Allergies Coded Allergies: No Known Allergies (Verified Allergy, Unknown, 01/30/19) RADHA BARRAGAN NP Dec 05, 2020 10:40
[2020-12-05] MEDS: buPROPion 100 MG TAB PO SCH ×2 (12:07→20:08)
[2020-12-05] MEDS: PILL CUTTER 1 EACH XX PRN ×2 (12:08→20:09)
[2020-12-05 16:42] VITALS: BP 117/81
[2020-12-05] MEDS: LURASIDONE HCL 40 MG TAB (LATUDA) PO SCH (18:30)
[2020-12-05] MEDS: TAMSULOSIN 0.4 MG CAP PO SCH (20:08)
[2020-12-05] MEDS: traZODone 50 MG TAB PO PRN (20:08)
[2020-12-06] MEDS: LEVOTHYROXINE 75MCG TABLET (0.075MG) PO SCH (05:16)
[2020-12-06 06:14] VITALS: BP 110/59
[2020-12-06 06:19] VITALS: BP 110/59
[2020-12-06] MEDS: buPROPion 100 MG TAB PO SCH ×2 (09:40→21:13)
[2020-12-06] MEDS: PILL CUTTER 1 EACH XX PRN ×2 (09:40→21:12)
[2020-12-06] MEDS: MULTIVITAMINS/MINERALS THERAP 1 TAB PO SCH (09:40)
[2020-12-06] MEDS: PARoxetine 20MG TABLET PO SCH (09:41)
[2020-12-06] MEDS: IRBESARTAN 150MG TAB PO SCH (09:41)
[2020-12-06] MEDS: FOLIC ACID 1 MG TAB PO SCH (09:41)
[2020-12-06] MEDS: NALTREXONE 50 MG TAB PO SCH (09:41)
[2020-12-06] MEDS: busPIRone 10 MG TAB PO SCH ×2 (09:41→21:13)
[2020-12-06] MEDS: THIAMINE 100 MG TAB PO SCH ×2 (09:41→21:13)
[2020-12-06] MEDS: NICOTINE POLACRILEX 2 MG GUM PO PRN ×2 (09:44→14:47)
--- NOTE | 2020-12-06 11:43 | MHIPNPDOC ---
[facility] Progress Note Progress Note DATE OF SERVICE: 12/06/20 HISTORY: Patient is a 45-year-old single domiciled man with a history of extensive alcohol use, who was brought to the hospital after calling [address] taking too much of his verapamil for sleep, has a memory of this and states was not a suicide attempt. Interval: Today reports he continues to do well on medications without side effects, states mood continues to be about the same but less depressed, denies suicidal or homicidal ideation. Sleep is "okay". Reports that naltrexone helps with his alcohol cravings and he has not used since last discharge apart from one time to 3 weeks ago, talk screen was not done to review. No acute physical complaints, does not feel needs medication changes at this time. VITAL SIGNS: See below. NEW TEST RESULTS: None CURRENT MEDICATIONS: See below. MENTAL STATUS EXAMINATION: Patient is a 45-year old male, who is sitting in bed Speech: Is slowed Language skills are intact. Thought processes including: Linear logical. Thought content: Denies suicidal or homicidal ideation. Abstract reasoning, and computation: Intact. Description of associations: Fair. Description of abnormal or psychotic thoughts: Denies. Judgment: Improved. Insight: Fair Orientation: Times. Recent and remote memory: Intact. Attention span and concentration: Fair. Language: Belarusian. Fund of knowledge: Average. Mood: "okay". Affect: Moderate anxiety, mood incongruent, constricted. DIAGNOSES: Major depressive disorder, recurrent, severe Generalized anxiety disorder Obsessive-compulsive disorder Alcohol use disorder Nicotine use disorder History of opiate use disorder History of stimulant use disorder ASSESSMENT: Continue medications, patient is an only changes, appears anxious but states mood is improving and is okay today. Reports sleep and appetite are normal, seen in social media interacting with others and goes to group. MANAGEMENT PLAN: Continue medication, denies medication side effects no need to make any changes TIME SPENT: 15 minutes. Vital Signs Vital Signs Date Time Temp Pulse Resp B/P (MAP) Pulse Ox O2 Delivery O2 Flow Rate FiO2 12/06/20 09:41 130/79 12/06/20 06:19 50 12/06/20 06:14 97.1 16 95 Room Air Current Medications Current Medications Medications (Trade) Dose Ordered Sig/Sharla Route PRN Reason Start Time Stop Time Status Last Admin Dose Admin Acetaminophen (Tylenol Tab) 650 mg Q6HP PRN PO HEADACHE or MILD DISCOMFORT 12/04/20 15:25 Al Hydrox/Mg Hydrox/Simethicone (Mylanta) 30 ml Q4HP PRN PO HEARTBURN/INDIGESTION 12/04/20 15:25 Bupropion HCl (Wellbutrin) 50 mg BID PO 12/05/20 09:00 12/06/20 09:40 Buspirone HCl (Buspar) 10 mg BID PO 12/05/20 09:00 12/06/20 09:41 Folic Acid (Folic Acid) 1 mg DAILY PO 12/05/20 09:00 12/06/20 09:41 Folic Acid (Folic Acid) 1 mg DAILY PO 12/05/20 09:00 UNV Home Med (Home Med List Complete!) ASDIRECTED XX 12/04/20 15:40 12/04/20 17:07 DC Home Med (Home Med List Complete!) ASDIRECTED XX 12/05/20 11:05 12/05/20 11:07 DC Irbesartan (Avapro) 150 mg DAILY PO 12/05/20 09:00 12/06/20 09:41 Levothyroxine Sodium (Synthroid) 75 mcg DAILY@0600 PO 12/05/20 06:00 12/06/20 05:16 Lorazepam (Ativan) 2 mg ASDIRECTED PRN PO SEE PROTOCOL 12/04/20 15:25 Lurasidone HCl (Latuda) 80 mg DAILY@18 PO 12/05/20 18:00 12/05/20 18:30 Magnesium Hydroxide (Milk Of Magnesia) 30 ml DAILYPRN PRN PO CONSTIPATION 12/04/20 15:25 Multivitamins (Theragram-M) 1 tab DAILY PO 12/05/20 09:00 12/06/20 09:40 Multivitamins (Theragram-M) 1 tab DAILY PO 12/05/20 09:00 UNV Naltrexone HCl (Revia) 50 mg QAM PO 12/05/20 09:00 12/06/20 09:41 Nicotine (Nicorette) 2 mg Q4HP PRN PO NICOTINE WITHDRAWAL 12/04/20 15:25 12/06/20 09:44 Olanzapine (ZyPREXA ZYDIS) 5 mg Q4HP PRN PO AGITATION 12/04/20 15:25 Oxazepam (Serax) 15 mg Q12H PO 12/04/20 21:00 12/05/20 11:39 DC 12/05/20 09:41 Paroxetine HCl (PAXil) 40 mg QAM PO 12/05/20 09:00 12/06/20 09:41 Tamsulosin HCl (Flomax) 0.4 mg QHS PO 12/04/20 21:00 12/05/20 20:08 Thiamine HCl (Thiamine HCl) 100 mg BID PO 12/04/20 21:00 12/07/20 20:59 UNV Thiamine HCl (Thiamine HCl) 100 mg BID PO 12/04/20 21:00 12/06/20 09:41 Trazodone HCl (Desyrel) 50 mg QHSP PRN PO INSOMNIA 12/04/20 15:25 12/05/20 20:08 Allergies Coded Allergies: No Known Allergies (Verified Allergy, Unknown, 01/30/19) PUSHPA GUADALUPE MD Dec 06, 2020 11:42
[2020-12-06] MEDS: OLANZapine ORAL DISINTEGRATING TAB 5MG PO PRN (12:10)
[2020-12-06 16:04] VITALS: BP 124/80
[2020-12-06] MEDS ORDERED: IBUPROFEN 600MG TAB PO PRN (17:30)
--- NOTE | 2020-12-06 17:48 | HPEPDOC ---
[facility] Medical History & Physical Date of Admission Dec 04, 2020 Date of Service: Dec 06, 2020 Other Provider Darryl Pedraza MD psychiatry Attending Physician: VINCE CLARK DO History and Physical CHIEF COMPLAINT: Calcium channel toro overdose HISTORY OF PRESENT ILLNESS: Patient is a 45-year-old male who presented to the hospital initially after taking too much of his verapamil. Patient states that he does not remember taking the verapamil but while he was in the hospital he did require transcutaneous and transvenous pacing. Patient was admitted into the inpatient mental health unit for further treatment for bipolar disorder and possible intentional overdose. Patient denies any suicidal ideation at this time. Patient's only complaint is that he does have a history of cluster headaches. Patient states that he did have a mild headache but it went away on its own without treatment. Patient uses subcutaneous sumatriptan at home. Patient states that ibuprofen does help sometimes but not usually. Patient is otherwise doing well and does not have any complaints at this time. PAST MEDICAL HISTORY: 1. Bipolar disorder. 2. Hypertension. 3. Hypothyroidism. 4. Cluster headaches PAST SURGICAL HISTORY: 1. Tonsillectomy SOCIAL HISTORY: Patient smokes a pack of cigarettes a day and drinks 4-8 beers a day. Patient denies illicit drug use. Patient lives alone and is disabled FAMILY HISTORY: Mother had ovarian cancer Father hypertension ALLERGIES: Please see below. REVIEW OF SYSTEMS: General: Patient denies fevers HEENT: Patient denies headaches at this time. Cardiovascular: Patient denies chest pain Respiratory: Patient denies shortness of breath, cough GI: Patient denies abdominal pain, nausea, vomiting, diarrhea : Patient denies increased frequency or pain with urination Extremities: Patient denies swelling or pain in extremities Neurological: Patient denies numbness or tingling in legs Skin: Patient denies any new rashes or lesions. Hematologic: Patient denies any easy bruising. Lymphatic: Patient denies any lumps lumps or bumps in neck, axilla, or groin HOME MEDICATIONS: Please see below. PHYSICAL EXAMINATION: VITAL SIGNS: Temperature 97.8, pulse 78, respiratory rate 16, blood pressure 124/80, pulse oximetry 100% on room air. General: Alert and oriented male patient who walked into the examination room without difficulty. Patient was in no acute distress HEENT: Normocephalic, atraumatic, moist mucous membranes. Neck: No lymphadenopathy or thyromegaly Cardiac: Regular rate and rhythm, no murmurs, normal S1, normal S2 Pulm: Clear to auscultation bilaterally. No wheezes, rhonchi, rales Abd: Nondistended, nontender to palpation, normal bowel sounds Ext: No edema bilateral lower extremities Neuro: Patient was able to move all 4 extremities on command and reported equal sensation light touch in all 4 extremities. Skin: Skin of the head, neck, upper and lower extremities was examined did not show any evidence of rash or wounds. LABORATORY DATA: See below. IMAGING: No imaging has been performed MICROBIOLOGY: Please see below. ASSESSMENT: 45-year-old male who presents to the inpatient mental health unit after a possible intentional overdose with verapamil. . PLAN: 1. Intentional overdose. Patient is medically cleared from intentional overdose and was discharged from the medical floor to the inpatient mental health unit. Patient will continue with the treatment per psychiatry. 2. Cluster headaches. Patient can be started on ibuprofen 600 mg every 8 hours as needed for the headache. Patient's kidney function is normal at this time. We will continue to monitor. Patient is on an YVONNE inhibitor so the ibuprofen should be used as sparingly as possible. I will need to discuss with psychiatry about whether or not they will allow him to get the sumatriptan as the patient states that he is unable to get the sumatriptan while he is on IMHU because it can make him more manic. 3. Bipolar disorder. Treatment per psychiatry. 4. Hypertension. Continue patient's home medications. 5. DVT prophylaxis: Not indicated as patient is not ambulatory unit 6. CODE STATUS: Full code Disposition: Discharge per psychiatry. Thank you for this consult and reconsult hospitalist as needed. Vital Signs Vital Signs Date Time Temp Pulse Resp B/P (MAP) Pulse Ox O2 Delivery O2 Flow Rate FiO2 12/06/20 16:04 97.8 78 16 124/80 (95) 100 Room Air Home Medications Scheduled Folic Acid (Folic Acid) 1 Mg Tablet, 1 MG PO DAILY Irbesartan (Irbesartan) 150 Mg Tablet, 150 MG PO DAILY Levothyroxine Sodium (Levothyroxine Sodium) 75 Mcg Tablet, 75 MCG PO DAILY Multivitamins (Thera M Plus Tablet) 1 Each Tablet, 1 TAB PO DAILY Oxazepam (Oxazepam) 15 Mg Capsule, 15 MG PO Q12H Tamsulosin HCl (Flomax) 0.4 Mg Capsule, 0.4 MG PO QHS Thiamine Hcl (Vitamin B-1) 100 Mg Tablet, 100 MG PO BID Scheduled PRN Sumatriptan Succinate (Sumatriptan Succinate) 4 Mg/0.5 Ml Cartridge, 4 MG SC BID PRN for MIGRAINE Allergies Coded Allergies: No Known Allergies (Verified Allergy, Unknown, 01/30/19) A-FIB/CHADSVASC A-FIB History Current/History of A-Fib/PAF?: No VINCE CLARK DO Dec 06, 2020 17:48
[2020-12-06] MEDS: LURASIDONE HCL 40 MG TAB (LATUDA) PO SCH (18:00)
[2020-12-06] MEDS: traZODone 50 MG TAB PO PRN (21:12)
[2020-12-06] MEDS: TAMSULOSIN 0.4 MG CAP PO SCH (21:12)
[2020-12-07] MEDS: LEVOTHYROXINE 75MCG TABLET (0.075MG) PO SCH (06:27)
[2020-12-07 06:45] VITALS: BP 131/63
[2020-12-07] MEDS: busPIRone 10 MG TAB PO SCH ×2 (08:52→21:40)
[2020-12-07] MEDS: NALTREXONE 50 MG TAB PO SCH (08:52)
[2020-12-07] MEDS: MULTIVITAMINS/MINERALS THERAP 1 TAB PO SCH (08:52)
[2020-12-07] MEDS: PILL CUTTER 1 EACH XX PRN ×2 (08:52→21:40)
[2020-12-07] MEDS: FOLIC ACID 1 MG TAB PO SCH (08:53)
[2020-12-07] MEDS: IRBESARTAN 150MG TAB PO SCH (08:53)
[2020-12-07] MEDS: NICOTINE POLACRILEX 2 MG GUM PO PRN ×3 (08:53→17:56)
[2020-12-07] MEDS: PARoxetine 20MG TABLET PO SCH (08:53)
[2020-12-07] MEDS: THIAMINE 100 MG TAB PO SCH ×2 (08:53→21:40)
[2020-12-07] MEDS: buPROPion 100 MG TAB PO SCH ×2 (08:53→21:40)
[2020-12-07] MEDS: OLANZapine ORAL DISINTEGRATING TAB 5MG PO PRN (10:56)
--- NOTE | 2020-12-07 11:37 | MHIPNPDOC ---
[facility] Progress Note Progress Note DATE OF SERVICE: 12/07/20 HISTORY: Patient is a 45-year-old single domiciled man with a history of extensive alcohol use, who was brought to the hospital after calling [address] taking too much of his verapamil for sleep, has a memory of this and states was not a suicide attempt. Interval: On discussion today states that he is not sure Latuda is the best medication for him, has concerns of chronic TD. On interview there is no signs of TD present, but he states he feels like there is some abnormal movements in his mouth periods of time. States he is not sure if he wants to be an atypical but goes on to state that he did really well on cariprazine however it being not on formulary was made difficult to get back on the medication. States the mood stabilizers are really helpful for him and no side effects from these medications and wants to continue. Seems unsure of which route he wants to take as far as adjusting his medication regimen, so was decided he would speak with his provider on Tuesday to address these concerns. On aims testing had some tremor and upper left extremity which is reported to be chronic. VITAL SIGNS: See below. NEW TEST RESULTS: None CURRENT MEDICATIONS: See below. MENTAL STATUS EXAMINATION: Patient is a 45-year old male, who is sitting in a chair, good eye contact, less disheveled, balding Speech: Is normal Language skills are intact. Thought processes including: Linear logical. Thought content: Denies suicidal or homicidal ideation. Abstract reasoning, and computation: Intact. Description of associations: Fair. Description of abnormal or psychotic thoughts: Denies. Judgment: Improved. Insight: Fair Orientation: Times. Recent and remote memory: Intact. Attention span and concentration: Fair. Language: Bulgarian. Fund of knowledge: Average. Mood: "good". Affect: Mildly anxious and constricted DIAGNOSES: Major depressive disorder, recurrent, severe Generalized anxiety disorder Obsessive-compulsive disorder Alcohol use disorder Nicotine use disorder History of opiate use disorder History of stimulant use disorder ASSESSMENT: Continue medications, has some concerns about possible long-term side effects and was talked about with provider on Tuesday, was reassured he can address these and come up with adjustments to her regimen. Denies any suicidal or homicidal ideation, denies hallucinations. Was made aware that cariprazine is on formulary but requires a prior authorization, this can be determined with communication with social work and provider, as currently remains stable on medications and adjustments may extend stay, also may be addressed outpatient. MANAGEMENT PLAN: Continue current medications for now, consider switching lurasidone for another medication as he reports limited long-term benefit on the medication. Extensive education regarding different medications, side effects, benefits versus, alternatives, versus risks. TIME SPENT: 25 minutes. Vital Signs Vital Signs Date Time Temp Pulse Resp B/P (MAP) Pulse Ox O2 Delivery O2 Flow Rate FiO2 12/07/20 08:53 114/78 12/07/20 06:45 97.3 57 16 100 Room Air Current Medications Current Medications Medications (Trade) Dose Ordered Sig/Sharla Route PRN Reason Start Time Stop Time Status Last Admin Dose Admin Acetaminophen (Tylenol Tab) 650 mg Q6HP PRN PO HEADACHE or MILD DISCOMFORT 12/04/20 15:25 Al Hydrox/Mg Hydrox/Simethicone (Mylanta) 30 ml Q4HP PRN PO HEARTBURN/INDIGESTION 12/04/20 15:25 Bupropion HCl (Wellbutrin) 50 mg BID PO 12/05/20 09:00 12/07/20 08:53 Buspirone HCl (Buspar) 10 mg BID PO 12/05/20 09:00 12/07/20 08:52 Folic Acid (Folic Acid) 1 mg DAILY PO 12/05/20 09:00 12/07/20 08:53 Folic Acid (Folic Acid) 1 mg DAILY PO 12/05/20 09:00 UNV Home Med (Home Med List Complete!) ASDIRECTED XX 12/04/20 15:40 12/04/20 17:07 DC Home Med (Home Med List Complete!) ASDIRECTED XX 12/05/20 11:05 12/05/20 11:07 DC Ibuprofen (Advil) 600 mg Q8HP PRN PO HEADACHE 12/06/20 17:30 Irbesartan (Avapro) 150 mg DAILY PO 12/05/20 09:00 12/07/20 08:53 Levothyroxine Sodium (Synthroid) 75 mcg DAILY@0600 PO 12/05/20 06:00 12/07/20 06:27 Lorazepam (Ativan) 2 mg ASDIRECTED PRN PO SEE PROTOCOL 12/04/20 15:25 Lurasidone HCl (Latuda) 80 mg DAILY@18 PO 12/05/20 18:00 12/06/20 18:00 Magnesium Hydroxide (Milk Of Magnesia) 30 ml DAILYPRN PRN PO CONSTIPATION 12/04/20 15:25 Multivitamins (Theragram-M) 1 tab DAILY PO 12/05/20 09:00 12/07/20 08:52 Multivitamins (Theragram-M) 1 tab DAILY PO 12/05/20 09:00 UNV Naltrexone HCl (Revia) 50 mg QAM PO 12/05/20 09:00 12/07/20 08:52 Nicotine (Nicorette) 2 mg Q4HP PRN PO NICOTINE WITHDRAWAL 12/04/20 15:25 12/07/20 08:53 Olanzapine (ZyPREXA ZYDIS) 5 mg Q4HP PRN PO AGITATION 12/04/20 15:25 12/07/20 10:56 Oxazepam (Serax) 15 mg Q12H PO 12/04/20 21:00 12/05/20 11:39 DC 12/05/20 09:41 Paroxetine HCl (PAXil) 40 mg QAM PO 12/05/20 09:00 12/07/20 08:53 Tamsulosin HCl (Flomax) 0.4 mg QHS PO 12/04/20 21:00 12/06/20 21:12 Thiamine HCl (Thiamine HCl) 100 mg BID PO 12/04/20 21:00 12/07/20 20:59 UNV Thiamine HCl (Thiamine HCl) 100 mg BID PO 12/04/20 21:00 12/07/20 08:53 Trazodone HCl (Desyrel) 50 mg QHSP PRN PO INSOMNIA 12/04/20 15:25 12/06/20 21:12 Allergies Coded Allergies: No Known Allergies (Verified Allergy, Unknown, 01/30/19) PUSHPA GUADALUPE MD Dec 07, 2020 11:37
[2020-12-07 14:00] VITALS: BP 124/69
[2020-12-07 16:13] VITALS: BP 108/63
[2020-12-07] MEDS: LURASIDONE HCL 40 MG TAB (LATUDA) PO SCH (17:55)
[2020-12-07 20:30] VITALS: BP 130/80
[2020-12-07] MEDS: traZODone 50 MG TAB PO PRN (21:39)
[2020-12-07] MEDS: TAMSULOSIN 0.4 MG CAP PO SCH (21:40)
[2020-12-08] MEDS: LEVOTHYROXINE 75MCG TABLET (0.075MG) PO SCH (05:42)
[2020-12-08 07:03] VITALS: BP 124/69
[2020-12-08] MEDS: IRBESARTAN 150MG TAB PO SCH (09:25)
[2020-12-08] MEDS: MULTIVITAMINS/MINERALS THERAP 1 TAB PO SCH (09:25)
[2020-12-08] MEDS: NALTREXONE 50 MG TAB PO SCH (09:25)
[2020-12-08] MEDS: FOLIC ACID 1 MG TAB PO SCH (09:25)
[2020-12-08] MEDS: PARoxetine 20MG TABLET PO SCH (09:25)
[2020-12-08] MEDS: THIAMINE 100 MG TAB PO SCH ×2 (09:25→21:13)
[2020-12-08] MEDS: busPIRone 10 MG TAB PO SCH ×2 (09:25→21:13)
[2020-12-08] MEDS: buPROPion 100 MG TAB PO SCH ×2 (09:27→21:13)
[2020-12-08] MEDS: PILL CUTTER 1 EACH XX PRN ×2 (09:28→21:13)
[2020-12-08] MEDS: NICOTINE POLACRILEX 2 MG GUM PO PRN ×3 (09:30→19:03)
[2020-12-08] MEDS: OLANZapine ORAL DISINTEGRATING TAB 5MG PO PRN ×2 (10:30→21:13)
--- NOTE | 2020-12-08 15:33 | MHIPNPDOC ---
[facility] Progress Note Progress Note DATE OF SERVICE: 12/08/20 HISTORY: Patient is a 45-year-old single domiciled man with a history of extensive alcohol use, who was brought to the hospital after calling [address] taking too much of his verapamil for sleep, has a memory of this and states was not a suicide attempt. VITAL SIGNS: See below. NEW TEST RESULTS: None CURRENT MEDICATIONS: See below. MENTAL STATUS EXAMINATION: Patient is a 45-year old male, who is sitting in a chair, good eye contact, less disheveled, balding Speech: Is normal Language skills are intact. Thought processes including: Linear logical. Thought content: Denies suicidal or homicidal ideation. Abstract reasoning, and computation: Intact. Description of associations: Fair. Description of abnormal or psychotic thoughts: Denies. Judgment: Improved. Insight: Fair Orientation: Times. Recent and remote memory: Intact. Attention span and concentration: Fair. Language: Bahraini. Fund of knowledge: Average. Mood: "good". Affect: Mildly anxious DIAGNOSES: Major depressive disorder, recurrent, severe Generalized anxiety disorder Obsessive-compulsive disorder Alcohol use disorder Nicotine use disorder History of opiate use disorder History of stimulant use disorder ASSESSMENT: Patient reports that his depression is still moderate, and feels that Latuda is keeping him more depression. Stated in the interview that he is not manic but also feels that he does not feel motivated or "up." He feels strongly that Latuda is keeping him more depressed and he requested this to be discontinued. We discussed other mood stabilizer and he states that he had not had manic episodes, feels that his drinking may have contributed to his depression as well. Does not want to add another mood stabilizer to replace the Latuda. He wants to see how well he does without an atypical. Patient denies continued suicidal thinking, reports that he does not feel at his baseline. States that he feels only mildly better. He is participating in the milieu, cooperative and attending to his ADLs MANAGEMENT PLAN: Patient requesting Latuda be discontinued. Will continues all other medications, discharge probably on Tuesday TIME SPENT: 25 minutes. Vital Signs Vital Signs Date Time Temp Pulse Resp B/P (MAP) Pulse Ox O2 Delivery O2 Flow Rate FiO2 12/08/20 09:25 124/69 12/08/20 07:03 97.4 51 18 98 Room Air Current Medications Current Medications Medications (Trade) Dose Ordered Sig/Sharla Route PRN Reason Start Time Stop Time Status Last Admin Dose Admin Acetaminophen (Tylenol Tab) 650 mg Q6HP PRN PO HEADACHE or MILD DISCOMFORT 12/04/20 15:25 Al Hydrox/Mg Hydrox/Simethicone (Mylanta) 30 ml Q4HP PRN PO HEARTBURN/INDIGESTION 12/04/20 15:25 Bupropion HCl (Wellbutrin) 50 mg BID PO 12/05/20 09:00 12/08/20 09:27 Buspirone HCl (Buspar) 10 mg BID PO 12/05/20 09:00 12/08/20 09:25 Folic Acid (Folic Acid) 1 mg DAILY PO 12/05/20 09:00 12/08/20 09:25 Folic Acid (Folic Acid) 1 mg DAILY PO 12/05/20 09:00 UNV Home Med (Home Med List Complete!) ASDIRECTED XX 12/04/20 15:40 12/04/20 17:07 DC Home Med (Home Med List Complete!) ASDIRECTED XX 12/05/20 11:05 12/05/20 11:07 DC Ibuprofen (Advil) 600 mg Q8HP PRN PO HEADACHE 12/06/20 17:30 Irbesartan (Avapro) 150 mg DAILY PO 12/05/20 09:00 12/08/20 09:25 Levothyroxine Sodium (Synthroid) 75 mcg DAILY@0600 PO 12/05/20 06:00 12/08/20 05:42 Lorazepam (Ativan) 2 mg ASDIRECTED PRN PO SEE PROTOCOL 12/04/20 15:25 Cancel Lurasidone HCl (Latuda) 80 mg DAILY@18 PO 12/05/20 18:00 12/08/20 10:38 DC 12/07/20 17:55 Magnesium Hydroxide (Milk Of Magnesia) 30 ml DAILYPRN PRN PO CONSTIPATION 12/04/20 15:25 Multivitamins (Theragram-M) 1 tab DAILY PO 12/05/20 09:00 12/08/20 09:25 Multivitamins (Theragram-M) 1 tab DAILY PO 12/05/20 09:00 UNV Naltrexone HCl (Revia) 50 mg QAM PO 12/05/20 09:00 12/08/20 09:25 Nicotine (Nicorette) 2 mg Q4HP PRN PO NICOTINE WITHDRAWAL 12/04/20 15:25 12/08/20 14:51 Olanzapine (ZyPREXA ZYDIS) 5 mg Q4HP PRN PO AGITATION 12/04/20 15:25 12/08/20 10:30 Oxazepam (Serax) 15 mg Q12H PO 12/04/20 21:00 12/05/20 11:39 DC 12/05/20 09:41 Paroxetine HCl (PAXil) 40 mg QAM PO 12/05/20 09:00 12/08/20 09:25 Tamsulosin HCl (Flomax) 0.4 mg QHS PO 12/04/20 21:00 12/07/20 21:40 Thiamine HCl (Thiamine HCl) 100 mg BID PO 12/04/20 21:00 12/07/20 20:59 UNV Thiamine HCl (Thiamine HCl) 100 mg BID PO 12/04/20 21:00 12/08/20 09:25 Trazodone HCl (Desyrel) 50 mg QHSP PRN PO INSOMNIA 12/04/20 15:25 12/07/20 21:39 Allergies Coded Allergies: No Known Allergies (Verified Allergy, Unknown, 01/30/19) RADHA BARRAGAN NP Dec 08, 2020 15:32
[2020-12-08] MEDS: ASPIRIN 81 MG CHEW TABLET PEG SCH (17:06)
[2020-12-08 18:09] VITALS: BP 146/82
[2020-12-08] MEDS: TAMSULOSIN 0.4 MG CAP PO SCH (21:13)
[2020-12-08] MEDS: traZODone 50 MG TAB PO PRN (21:13)
[2020-12-09] MEDS: LEVOTHYROXINE 75MCG TABLET (0.075MG) PO SCH (05:32)
[2020-12-09 06:00] VITALS: BP 104/58
[2020-12-09] MEDS: PILL CUTTER 1 EACH XX PRN (09:20)
[2020-12-09] MEDS: NALTREXONE 50 MG TAB PO SCH (09:21)
[2020-12-09] MEDS: MULTIVITAMINS/MINERALS THERAP 1 TAB PO SCH (09:21)
[2020-12-09] MEDS: THIAMINE 100 MG TAB PO SCH ×2 (09:21→20:53)
[2020-12-09] MEDS: ASPIRIN 81 MG CHEW TABLET PEG SCH (09:21)
[2020-12-09] MEDS: PARoxetine 20MG TABLET PO SCH (09:21)
[2020-12-09] MEDS: NICOTINE POLACRILEX 2 MG GUM PO PRN ×3 (09:21→18:21)
[2020-12-09] MEDS: FOLIC ACID 1 MG TAB PO SCH (09:21)
[2020-12-09] MEDS: busPIRone 10 MG TAB PO SCH ×2 (09:22→20:53)
[2020-12-09] MEDS: IRBESARTAN 150MG TAB PO SCH (09:25)
[2020-12-09] MEDS: buPROPion 100 MG TAB PO SCH ×2 (09:25→20:53)
[2020-12-09] MEDS ORDERED: ASPI81CH8 PEG (09:43)
[2020-12-09] MEDS ORDERED: NICO2GUM PO (09:43)
[2020-12-09] MEDS ORDERED: PARO20TA3 PO (09:43)
[2020-12-09] MEDS ORDERED: BUSP10TA PO (09:43)
[2020-12-09] MEDS ORDERED: NALT50TA4 PO (09:43)
[2020-12-09] MEDS ORDERED: BUPR-69 PO (09:43)
[2020-12-09] MEDS: OLANZapine ORAL DISINTEGRATING TAB 5MG PO PRN (11:45)
[2020-12-09] MEDS: traZODone 50 MG TAB PO PRN (20:53)
[2020-12-09] MEDS: TAMSULOSIN 0.4 MG CAP PO SCH (20:53)
[2020-12-10] MEDS: LEVOTHYROXINE 75MCG TABLET (0.075MG) PO SCH (05:56)
[2020-12-10 06:44] VITALS: BP 107/57
[2020-12-10] MEDS: PILL CUTTER 1 EACH XX PRN (08:28)
[2020-12-10] MEDS: buPROPion 100 MG TAB PO SCH (08:28)
[2020-12-10 08:29] VITALS: BP 138/89
[2020-12-10] MEDS: NICOTINE POLACRILEX 2 MG GUM PO PRN (08:29)
[2020-12-10] MEDS: IRBESARTAN 150MG TAB PO SCH (08:29)
[2020-12-10] MEDS: busPIRone 10 MG TAB PO SCH (08:29)
[2020-12-10] MEDS: PARoxetine 20MG TABLET PO SCH (08:29)
[2020-12-10] MEDS: FOLIC ACID 1 MG TAB PO SCH (08:30)
[2020-12-10] MEDS: THIAMINE 100 MG TAB PO SCH (08:30)
[2020-12-10] MEDS: ASPIRIN 81 MG CHEW TABLET PEG SCH (08:30)
[2020-12-10] MEDS: NALTREXONE 50 MG TAB PO SCH (08:30)
[2020-12-10] MEDS: MULTIVITAMINS/MINERALS THERAP 1 TAB PO SCH (08:30)
--- NOTE | 2020-12-10 13:07 | MHDSPDOC ---
[facility] Discharge Summary Discharge Summary DATE OF ADMISSION: Dec 04, 2020 at 16:55 DATE OF DISCHARGE: Dec 10, 2020 at 11:04 DISCHARGE DIAGNOSES: Major depressive disorder, recurrent, severe Generalized anxiety disorder Obsessive-compulsive disorder Alcohol use disorder Nicotine use disorder History of opiate use disorder REASON FOR ADMISSION: Patient is a 45-year-old single domiciled man with a history of extensive alcohol use, who was brought to the hospital after calling 911 after taking too much of his verapamil for sleep, has a memory of this and states was not a suicide attempt. VITAL SIGNS: See below. CONSULTANTS INVOLVED: See Medical H + P by Hospitalist TREATMENT AND PROGRESS ON THE UNIT: Patient was admitted to the [facility] on a legal status was afforded the following treatment modalities: 1) Individual Therapy 2) Group Therapy 3) Medication Management 4) Milieu Therapy 5) Safe Environment HOSPITAL COURSE: Patient was admitted to [facility] from medical on a legal status. He has a history of extensive alcohol use, who was brought to the hospital after calling 911 after taking too much of his verapamil for sleep, has a memory of this and states was not a suicide attempt. He was restarted on his home medications and he had reported that he did not feel improved with the Latuda. This was discontinued due to his report that the mood stabilizer keep his mood much lower than necessary. He reports that his Bipolar diagnosis was substance induced and felt that he did not need Latuda at this time. Reports no manic symptoms in over a year which always occurred with increased substance use. Pt found remaining medications beneficial and tolerated them well. Mood, anxiety, and intrusive thoughts improved with treatment. Pt attended groups daily during stay. Pts symptoms improved with treatment. On day of discharge pt. denied depression, anxiety, insomnia, SI/HI, hallucinations, delusions. Pt was discharged home with follow-up with Zaida and Dr. Gonsalves. Pt felt safe for discharge. DISCHARGE ASSESSMENT: In today's interview, patient is alert and oriented, pt.s dress is appropriate. Hygiene and grooming is well-kempt. Smiles on approach and is pleasant and engaged in the interview. Denies depression and anxiety. Denies suicidal and homicidal ideation, planning or intent. Denies and is not observed with flor, psychotic symptoms of delusions, bizarre thinking, obsessions, paranoia, ruminations illogical thoughts, flight of ideas or having poor insight and judgement. Reinforced with patient need to abstain from alcohol and drugs. We spoke at length about his addictive personality and positive coping he needs to utilize in order to abstain from alcohol. He states "I am 45 years old, I need to do something different with my life." He reports being motivated to attend [facility] where he states he had past success. Patient declined information about AA meetings. Talked about replacing addiction with positive coping mechanisms. Patient encouraged to find additional services and supports to help him with his recovery. At discharge patient has normal mentation, declines further hospitalization on a voluntary status and meets criteria for discharge today. Discussed indications of medications, potential benefits and risks, alternatives (including no treatment) and questions were encouraged and answered. Patient encouraged to return to hospital if symptoms worsen or change and encouraged to call unit if he/she/they needs to speak to provider for questions regarding medications or care. MENTAL STATUS EXAMINATION ON DISCHARGE: Patient is a 45-year-old single domiciled man with a history of extensive alcohol use, who was brought to the hospital after calling 911 after taking too much of his verapamil for sleep, has a memory of this and states was not a suicide attempt. Speech: Is fluid, conversant, normal rate, tone and volume Language skills are intact Thought processes including: linear and goal oriented Thought content: denies depression and anxiety. Denies suicidal/homicidal ideation, planning or intent. Abstract reasoning, and computation: fair Description of associations: denies, none observed Description of abnormal or psychotic thoughts: denies, none observed. Judgment: fair Insight: fair Orientation: alert and oriented to person, place, time and situation Recent and remote memory: intact Attention span and concentration: good Language: expansive Fund of knowledge: average Mood: Euthymic Mood Affect: reactive Suicide Risk Assessment: 1) Does the patient wish to be ? No 2) Since your admission, have you had any actual thought of killing yourself? No 3) Since your admission, have you been thinking about how you might do this? No 4) Since your admission, have you had these thoughts and had some intention of acting on them? No 5) Since your admission, have you started to work out or worked out the details of how to kill yourself? No 5A) Do you intent to carry out this plan? No and NA 6) Have you ever done anything, started anything, or prepared to do anything with any intent to ? No 6A) How long since your admission did you do any of these? NA MEDICATIONS ON DISCHARGE: See Medication Reconciliation PLAN/FOLLOWUP ARRANGEMENTS:Zaida and Dr. Gonsalves The amount of time spent in the coordination of care for this patient was approximately 30 minutes. ETOH/Disorder Med Rx ETOH/DRUG DISORDER RX: Given to pt at d/c Vital Signs/I&Os Vital Signs Date Time Temp Pulse Resp B/P (MAP) Pulse Ox O2 Delivery O2 Flow Rate FiO2 12/10/20 08:29 138/89 12/10/20 06:44 97.6 54 14 97 Room Air Medications Scheduled Aspirin (Children's Aspirin) 81 Mg Tab.chew, 81 MG PEG DAILY for Chest Pain, #7 Bupropion HCl (Bupropion HCl) 100 Mg Tablet, 50 MG PO BID for Mood, #14 Buspirone HCl (Buspirone HCl) 10 Mg Tablet, 10 MG PO BID for Anxiety, #14 Irbesartan (Irbesartan) 150 Mg Tablet, 150 MG PO DAILY, (Reported) Levothyroxine Sodium (Levothyroxine Sodium) 75 Mcg Tablet, 75 MCG PO DAILY, (Reported) Multivitamins (Thera M Plus Tablet) 1 Each Tablet, 1 TAB PO DAILY for 14 Days, #14 Naltrexone HCl (Naltrexone HCl) 50 Mg Tablet, 50 MG PO QAM for Alcohol Control, #7 Paroxetine HCl (Paroxetine HCl) 20 Mg Tablet, 40 MG PO QAM for Mood, #7 Tamsulosin HCl (Flomax) 0.4 Mg Capsule, 0.4 MG PO QHS, (Reported) Thiamine Hcl (Vitamin B-1) 100 Mg Tablet, 100 MG PO BID for 7 Days, #14 Scheduled PRN Nicotine Polacrilex (Nicotine Gum) 2 Mg Gum, 2 MG PO Q4HP PRN for NICOTINE WITHDRAWAL, #7 Sumatriptan Succinate (Sumatriptan Succinate) 4 Mg/0.5 Ml Cartridge, 4 MG SC BID PRN for MIGRAINE, (Reported) Allergies Coded Allergies: No Known Allergies (Verified Allergy, Unknown, 01/30/19) RADHA BARRAGAN NP Dec 10, 2020 13:07
== END 2020-12-10 11:04 | disposition home or self-care (01) | DRG 885 ==
LOC: M PSY 16:55
PROVIDERS: ADMIT Psychiatry & Neurology Psychiatry; ATTEND Psychiatry & Neurology Psychiatry
DX: F33.2 Major depressive disorder, recurrent severe without psychotic features (principal); F41.1 Generalized anxiety disorder; F42.9 Obsessive-compulsive disorder, unspecified; F10.10 Alcohol abuse, uncomplicated; F17.210 Nicotine dependence, cigarettes, uncomplicated; Z79.899 Other long term (current) drug therapy; E03.9 Hypothyroidism, unspecified; G44.009 Cluster headache syndrome, unspecified, not intractable; I10 Essential (primary) hypertension

== ENCOUNTER 2020-12-23 11:39 | Emergency (ER) | payer MEDICARE ==
[~2020-12-23] VITALS: Ht 175.3 cm; Wt 70.5 kg
[~2020-12-23 11:39] MED LIST changes: +ASPI81CH8 PEG; +BUPR-69 PO; +NICO2GUM PO; +THIAMINE 100 MG TAB PO SCH
[2020-12-23] MEDS ORDERED: LORazepam 2 MG TAB PO PRN (11:50)
[2020-12-23] MEDS ORDERED: BUPR1TAB52 (12:19)
[2020-12-23] MEDS ORDERED: ALPR1TAB3 (12:19)
[2020-12-23] MEDS ORDERED: LATU80TA PO (12:19)
[2020-12-23] MEDS ORDERED: VERA120T83 (12:19)
[2020-12-23] MEDS ORDERED: BOOSTRIX/ADACEL VACCINE (DIPHTH/PERTUSS/ACELL/TETANUS) 0.5ML SYR IM ONE (12:20)
[2020-12-23 13:45] LABS: HEMATOCRIT 44.1 % (42.0-52.0); HEMOGLOBIN 15.2 g/dl (13.5-17.5); MEAN CORPUSCULAR HEMOGLOBIN 31.4 pg (27.0-33.0); MEAN CORPUSCULAR HGB CONC 34.5 g/dl (32.0-36.5); MEAN CORPUSCULAR VOLUME 91.1 fl (80.0-96.0); PLATELET COUNT, AUTOMATED 147 10^3/uL (150-450); RED BLOOD COUNT 4.84 10^6/uL (4.30-6.10); WHITE BLOOD COUNT 7.4 10^3/uL (4.0-10.0)
[2020-12-23 14:26] LABS: ACETAMINOPHEN LEVEL < 2.0 UG/ML (10.0-30.0); ALBUMIN 3.4 GM/DL (3.2-5.2); ALT/SGPT 44 U/L (12-78); BILIRUBIN,DIRECT < 0.1 MG/DL (0.0-0.2); BILIRUBIN,TOTAL 0.2 MG/DL (0.2-1.0); BLOOD UREA NITROGEN 9 MG/DL (7-18); CALCIUM LEVEL 8.7 MG/DL (8.5-10.1); CARBON DIOXIDE LEVEL 23 MEQ/L (21-32); CHLORIDE LEVEL 112 MEQ/L (98-107); CREATININE FOR GFR 0.52 MG/DL (0.70-1.30); ETHYL ALCOHOL (ETHANOL) 0.128 % (0.000-0.010); GLOMERULAR FILTRATION RATE > 60.0 (>60); GLUCOSE, FASTING 90 MG/DL (70-100); POTASSIUM SERUM 4.1 MEQ/L (3.5-5.1); SALICYLATE LEVEL 2.1 MG/DL (5.0-30.0); SODIUM LEVEL 140 MEQ/L (136-145); TOTAL PROTEIN 6.5 GM/DL (6.4-8.2)
[2020-12-23 14:38] LABS: AMPHETAMINES LEVEL URINE NEGATIVE (NEGATIVE); BARBITURATES URINE NEGATIVE (NEGATIVE); BENZODIAZEPINES URINE POSITIVE (NEGATIVE); CANNABINOIDS URINE NEGATIVE (NEGATIVE); COCAINE METABOLITE URINE NEGATIVE (NEGATIVE); METHADONE URINE NEGATIVE (NEGATIVE); OPIATES URINE NEGATIVE (NEGATIVE); PHENCYCLIDINE URINE NEGATIVE (NEGATIVE)
[2020-12-23 15:09] LABS: HEPATITIS B SURFACE ANTIGEN NEGATIVE (NEGATIVE); HEPATITIS C VIRUS ABY INDEX 0.1 INDEX (<0.8); HIV SCREEN CENTAUR SOURCE NEGATIVE (NEGATIVE)
--- NOTE | 2020-12-23 15:34 | REP ---
INDICATION: altered. COMPARISON: January 02, 2018. TECHNIQUE: Helical scanning is acquired. 5 mm axial images were reformatted. Coronal MPR images were generated. FINDINGS: Bone window settings demonstrate an intact bony calvarium. There is no evidence of skull fracture or incidental bony calvarial lesion. The visualized paranasal sinuses appear clear. No intraorbital abnormality is seen. On soft tissue window setting images; the lateral, third, and fourth ventricles are normal in size and position. Romero-white differentiation pattern is normal above and below the tentorium. There are is no evidence of intracranial hemorrhage. No mass, edema, infarction, or midline shift is seen. No extra-axial fluid collection is appreciated. IMPRESSION: Negative noncontrast head CT. <Electronically signed by Elton Marcos > 12/23/20 [id number]
[2020-12-23 18:16] VITALS: BP 140/79
[2020-12-24] MEDS ORDERED: FOLIC ACID 1 MG TAB PO SCH (09:00)
[2020-12-24] MEDS ORDERED: MULTIVITAMINS/MINERALS THERAP 1 TAB PO SCH (09:00)
== END 2020-12-23 18:17 | disposition home or self-care (01) ==
LOC: M ED 11:39
DX: F10.120 Alcohol abuse with intoxication, uncomplicated (principal); S61.011A Laceration without foreign body of right thumb without damage to nail, initial encounter; W01.118D Fall on same level from slipping, tripping and stumbling with subsequent striking against other sharp object, subsequent encounter; Y92.89 Other specified places as the place of occurrence of the external cause; I10 Essential (primary) hypertension; E07.9 Disorder of thyroid, unspecified; F31.9 Bipolar disorder, unspecified; F17.200 Nicotine dependence, unspecified, uncomplicated; Z79.899 Other long term (current) drug therapy; Z79.82 Long term (current) use of aspirin

== ENCOUNTER 2021-01-01 12:45 | Emergency (ER) | payer MEDICARE ==
[~2021-01-01] VITALS: Ht 175.3 cm; Wt 72.7 kg
[~2021-01-01 12:45] MED LIST changes: +ALPR1TAB3; +BUPR1TAB52; -THIAMINE 100 MG TAB PO SCH; +VERA120T83
--- OUTSIDE RECORDS SUMMARY | 2021-01-01 12:51 | CCD | Continuity of Care Document ---
Author Author Luis Enrique CADE D.O. [place] [address] Phone [phone] Care Team Providers Care Apron Cleaner Name Role Phone Xu Parnell AUTM [phone] Oscar Stokes M.D. AUTM [phone] Problems Active Problems Provider Date Heartburn Wm Borrero MD Onset: 10/15/2014 Diaphragmatic hernia Wm Borrero MD Onset: 10/15/2014 Chest pain Wm Borrero MD Onset: 10/15/2014 Gastroesophageal reflux disease Wm Borrero MD Onset: 0 10/15/2014 Left lower quadrant pain Soren Andres DO Onset: 09/19 Social History Type Date Description Comments Sex Unknown Tobacco Use Start: Unknown Current Cigarette Smoker 1 Pack Daily ETOH Use Denies alcohol use Tobacco Use Start: Unknown Smokes 1 Pack A Day Recreational Drug Use Denies Drug Use Allergies and adverse reactions Description No Known Drug Allergies Medications Active Medications SIG Qnty Indications Ordering Provide r Date Sucralfate 1GM/10ML Suspension 1 gm po qid 500ml Wm Borrero MD 04/18/[address] 40 mg po bid (d/c previous script for Omeprazole 40 q day and refills) 60caps Wm Borrero MD 04/12/2012 [place] Carbonate ER 450mg Tablets ER 1 tab by mouth four times a day Unknown Paxil 20mg Tablets 1 tab b y mouth daily Unknown Depakote 500mg Tablets DR Unknown Verapamil HCL 120mg Tablets Unknown Metoprolol Succinate ER 37.5 Tablets ER 24HR 1 by mouth every day Unknown 00/00/0 000 Flomax 0.4mg Capsules Unknown Colace 100mg Capsules 1 by mouth twice a day Unknown Immunizations Description No Information Available Vital Signs Date Vital Result Comment 10/15/2014 2:18pm Height 68 inches 5'8" Weight 163.00 lb BMI (Body Mass Index) 24.8 kg/m2 [place] Body Weight 154 lb Weight 73.937 kg BSA (Body Surface Area) 1.87 m2 04/04/2012 1:52pm BP Systolic 141 mmHg BP Diastolic 84 mmHg Height 68 inches 5'8" Weight 170.00 lb BMI (Body Mass Index) 25.8 kg/m2 [place] Body Weight 154 lb Weight 77.112 kg Results Description No Information Available Procedures Date Code Description Status 12/03/2020 95545 Hospital Subsequent Care Level 2 Completed 12/02/2020 38298 Critical Care First 30-74 Minute s Completed 12/02/2020 12799 Ultrasound Guidance For Vascular Access Requiring Ultrasound Eval Completed 12/02/2020 90840 Insertion Of Non-Reji neled Centrally Inserted Central Venous Kriss Completed 12/02/2020 37970 Insert/Replace Single Chamber El ectrode/Pacemaker Catheter Completed 12/01/2020 66062 Critical Care First 30-74 Minute s Completed Medical Devices Description No Information Available Encounters Type Date Location Provider Dx Diagnosis Office Visit 12/03/2020 1:23a [facility] Kenneth Se ars, D.O. R57.0 Cardiogenic shock T43.1x2A Poisoning by Mao inhib antid epressants, self-harm, init I44.2 Atrioventricular block, comp lete E87.6 Hypokalemia Office Visit 12/02/2020 1:23a [facility] Kenneth Se ars, D.O. R57.0 Cardiogenic shock T43.1x2A Poisoning by Mao inhib antid epressants, self-harm, init I44.2 Atrioventricular block, comp lete Office Visit 12/01/2020 1:23a [facility] Kenneth Se ars, D.O. R57.0 Cardiogenic shock T43.1x2A Poisoning by Mao inhib antid epressants, self-harm, init I44.2 Atrioventricular block, comp lete Assessments Date Code Description Provider 12/03/2020 R57.0 Cardiogenic shock Kenneth Seacalos, D. O. 12/03/2020 T43.1x2A Poisoning by monoami vu-vfzzukf-dlqipyqxy antidepressants, intentional self-harm, initial encounter Kenneth Cade, D.O. 12/03/2020 I44.2 Atrioventricular block, complete Kenneth Sears, D.O. 12/03/2020 E87.6 Hypokalemia Kenneth Harrisrs, D.O. 12/02/2020 R57.0 Cardiogenic shock Kenneth Sears, D. O. 12/02/2020 T43.1x2A Poisoning by monoami yu-ejjstlq-ksrynatrf antidepressants, intentional self-harm, initial encounter Kenneth Sears, D.O. 12/02/2020 I44.2 Atrioventricular block, complete Kenneth Sears, D.O. 12/01/2020 R57.0 Cardiogenic shock Kenneth Sears, D. O. 12/01/2020 T43.1x2A Poisoning by monoami jo-wodjzuk-xdnqevtcy antidepressants, intentional self-harm, initial encounter Kenneth Cade, D.O. 12/01/2020 I44.2 Atrioventricular block, complete Kenneth Harrisrs, D.O. Plan of Treatment 10/15/2014 - Simeon Duarte MD* 472.0 Rhinitis Chronic* Comments:* Patient is counseled on general nasal hygiene. Patient is advised to use nasal saline irrigation in conjunction with the nasal steroid sprays which pt has his own supply. No mucosal lesions seen inside left and right nasal cacity. * Follow up:* prn * 470 Deviated Nasal Septum Functional Status Description No Information Available Mental Status Description No Information Available Referrals Description No Information Available
--- OUTSIDE RECORDS SUMMARY | 2021-01-01 12:51 | CCD | Continuity of Care Document ---
Author Author Luis Enrique CADE D.O. [place] [address] Phone [phone] Care Team Providers Care Steam Shovel Engineer Name Role Phone Xu Parnell AUTM [phone] Oscar Stokes M.D. AUTM [phone] Problems Active Problems Provider Date Heartburn Wm [...] and refills) 60caps Wm Borrero MD 04/12/2012 [place] Carbonate ER 450mg Tablets ER 1 tab [...] lb BMI (Body Mass Index) 24.8 kg/m2 [place] Body Weight 154 lb Weight 73.937 kg BSA (Body Surface Area) 1.87 m2 04/04/2012 1:52pm BP Systolic 141 mmHg BP Diastolic 84 mmHg Height 68 inches 5'8" Weight 170.00 lb BMI (Body Mass Index) 25.8 kg/m2 [place] Body Weight 154 lb Weight 77.112 kg Results Description No Information Available Procedures Date Code Description Status 12/03/2020 95483 Hospital Subsequent Care Level 2 Completed 12/02/2020 17460 Critical Care First 30-74 Minute s Completed 12/02/2020 69866 Ultrasound Guidance For Vascular Access Requiring Ultrasound Eval Completed 12/02/2020 60685 Insertion Of Non-Reji neled Centrally Inserted Central Venous Kriss Completed 12/02/2020 85890 Insert/Replace Single Chamber El ectrode/Pacemaker Catheter Completed 12/01/2020 71563 Critical Care First 30-74 Minute s Completed Medical Devices Description No Information Available Encounters Type Date Location Provider Dx Diagnosis Office Visit 12/03/2020 1:23a [facility] Kenneth Se ars, D.O. R57.0 Cardiogenic shock T43.1x2A Poisoning by Mao inhib antid epressants, self-harm, init I44.2 Atrioventricular block, comp lete E87.6 Hypokalemia Office Visit 12/02/2020 1:23a [facility] Kenneth Se ars, D.O. R57.0 Cardiogenic shock T43.1x2A Poisoning by Mao inhib antid epressants, self-harm, init I44.2 Atrioventricular block, comp lete Office Visit 12/01/2020 1:23a [facility] Kenneth Se ars, D.O. R57.0 Cardiogenic shock T43.1x2A Poisoning by Mao inhib antid epressants, self-harm, init I44.2 Atrioventricular block, comp lete Assessments Date Code Description Provider 12/03/2020 R57.0 Cardiogenic shock Kenneth Seacalos, D. O. 12/03/2020 T43.1x2A Poisoning by monoami po-evlxkhd-sousijctk antidepressants, intentional self-harm, initial encounter Kenneth Cade, D.O. 12/03/2020 I44.2 Atrioventricular block, complete Kenneth Sears, D.O. 12/03/2020 E87.6 Hypokalemia Kenneth Harrisrs, D.O. 12/02/2020 R57.0 Cardiogenic shock Kenneth Sears, D. O. 12/02/2020 T43.1x2A Poisoning by monoami jy-fbaxood-yupdaahwb antidepressants, intentional self-harm, initial encounter Kenneth Sears, D.O. 12/02/2020 I44.2 Atrioventricular block, complete Kenneth Sears, D.O. 12/01/2020 R57.0 Cardiogenic shock Kenneth Sears, D. O. 12/01/2020 T43.1x2A Poisoning by monoami bt-rrcqzeo-yijoqtuwu antidepressants, intentional self-harm, initial encounter Kenneth Cade, [...]
--- OUTSIDE RECORDS SUMMARY | 2021-01-01 12:51 | CCD | Continuity of Care Document ---
Author Author Luis Enrique CADE D.O. [place] [address] Phone [phone] Care Team Providers Care Pattern Maker Programer Name Role Phone Xu Parnell AUTM [phone] Oscar Stokes M.D. AUTM [phone] Problems Active Problems Provider Date Heartburn Wm [...] and refills) 60caps Wm Borrero MD 04/12/2012 [place] Carbonate ER 450mg Tablets ER 1 tab [...] lb BMI (Body Mass Index) 24.8 kg/m2 [place] Body Weight 154 lb Weight 73.937 kg BSA (Body Surface Area) 1.87 m2 04/04/2012 1:52pm BP Systolic 141 mmHg BP Diastolic 84 mmHg Height 68 inches 5'8" Weight 170.00 lb BMI (Body Mass Index) 25.8 kg/m2 [place] Body Weight 154 lb Weight 77.112 kg Results Description No Information Available Procedures Date Code Description Status 12/03/2020 17922 Hospital Subsequent Care Level 2 Completed 12/02/2020 32687 Critical Care First 30-74 Minute s Completed 12/02/2020 28600 Ultrasound Guidance For Vascular Access Requiring Ultrasound Eval Completed 12/02/2020 97632 Insertion Of Non-Reji neled Centrally Inserted Central Venous Kriss Completed 12/02/2020 91073 Insert/Replace Single Chamber El ectrode/Pacemaker Catheter Completed 12/01/2020 66003 Critical Care First 30-74 Minute s Completed Medical Devices Description No Information Available Encounters Type Date Location Provider Dx Diagnosis Office Visit 12/03/2020 1:23a [facility] Kenneth Se ars, D.O. R57.0 Cardiogenic shock T43.1x2A Poisoning by Mao inhib antid epressants, self-harm, init I44.2 Atrioventricular block, comp lete E87.6 Hypokalemia Office Visit 12/02/2020 1:23a [facility] Kenneth Se ars, D.O. R57.0 Cardiogenic shock T43.1x2A Poisoning by Mao inhib antid epressants, self-harm, init I44.2 Atrioventricular block, comp lete Office Visit 12/01/2020 1:23a [facility] Kenneth Se ars, D.O. R57.0 Cardiogenic shock T43.1x2A Poisoning by Mao inhib antid epressants, self-harm, init I44.2 Atrioventricular block, comp lete Assessments Date Code Description Provider 12/03/2020 R57.0 Cardiogenic shock Kenneth Seacalos, D. O. 12/03/2020 T43.1x2A Poisoning by monoami pc-xftnoqu-fenlppxrl antidepressants, intentional self-harm, initial encounter Kenneth Cade, D.O. 12/03/2020 I44.2 Atrioventricular block, complete Kenneth Sears, D.O. 12/03/2020 E87.6 Hypokalemia Kenneth Harrisrs, D.O. 12/02/2020 R57.0 Cardiogenic shock Kenneth Sears, D. O. 12/02/2020 T43.1x2A Poisoning by monoami ib-zhzuqaa-wwyrnwdkn antidepressants, intentional self-harm, initial encounter Kenneth Sears, D.O. 12/02/2020 I44.2 Atrioventricular block, complete Kenneth Sears, D.O. 12/01/2020 R57.0 Cardiogenic shock Kenneth Sears, D. O. 12/01/2020 T43.1x2A Poisoning by monoami yy-zfgaufm-momvysoyc antidepressants, intentional self-harm, initial encounter Kenneth Cade, [...]
--- OUTSIDE RECORDS SUMMARY | 2021-01-01 12:51 | CCD ---
Author Author [facility] Communication [employer] [facility] Organization [facility] [employer] [facility] Address Unknown Phone Unavailable Care Team Providers Care Welcome Hostess Name Role Phone Niki Velasquez Unavailable PROBLEMS Type Condition ICD9-CM Code [id number] Code Onset Dates Condition S tatus W/U Status Risk SNOMED Code Notes Problem Bipolar disorder F31.9 Active confirmed 137 62252 Problem Gastroesophageal reflux disease, esophagitis pre sence not specified K21.9 Active confirmed 817358978 Problem Episodic cluster headache, not intractable G44.019 Active confirmed 867278716 Problem Acquired hypothyroidism E03.9 Active confirmed 766888563 Problem Essential hypertension I10 Active confirmed 01051776 Problem Low back pain M54.5 Active confirmed 141029 007 Problem Tobacco dependence F17.200 Active confirmed 55019560 Problem Hyperlipidemia, unspecified hyperlipidemia type E7 8.5 Active confirmed 53222098 Problem Opioid use disorder F11.99 Active confirmed 28853012 Problem Opioid dependence in remission F11.21 Active confir med 478555686 Problem BPH w urinary obs/LUTS N40.1 Active confirmed 72346764156621 Problem Prostate cancer screening Z12.5 Active confirmed 783691470 Problem Raynauds disease without gangrene I73.00 Active confirmed 946125044 Problem Chronic obstructive pulmonary disease, unspecified COPD ty pe J44.9 Active confirmed 36598422 Problem Bipolar 1 disorder with moderate flor F31.12 A ctive confirmed 22619559 Problem Benign prostatic hyperplasia without lower urina ry tract symptoms N40.0 Active confirmed 753516916 Problem 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 Active confi rmed 431677000 ALLERGIES No Known Allergies ENCOUNTERS from 1975 to 2020-10-03 Encounter Location Date Provider Diagnosis [facility] [address] [facility] [phone] [place] [address] Aug, Niki Velasquez IMMUNIZATIONS Vaccine Route Administration Date Status TDAP 0.5mL (Boostrix) Unknown September 20, 2012 Administer ed Influenza 6mo & up Fluzone Unknown Jan 09, 2018 Refus ed Influenza 6mo & up Fluzone Unknown June 04, 2015 Refus ed SOCIAL HISTORY Tobacco Use: Social History Observation Description Date Details (start date - stop date) Current Smoker Sex Assigned At : Social History Observation Description Sex Assigned At Unknown Audit Question Answer Notes Total Score: 0 Interpretation: Alcohol Education Language: Question Answer Notes Languages spoken: Azeri Samaritan: Question Answer Notes Samaritan 33 None Sexual Hx: Question Answer Notes Had sex in the last 12 months (vaginal, oral, or anal)? Yes Have you ever had an STD? Yes with Women only Use protection? No Herpes? Yes Drug and Alcohol Question Answer Notes Total Score: 0 Interpretation: No problems reported Alcohol Screening: Question Answer Notes Did you have a drink containing alcohol in the past year? Ye s Points 8 Interpretation Positive How often did you have six or more drinks on one occas ion in the past year? Weekly (3 points) How many drinks did you have on a typica l day when you were drinking in the past year? 3 or 4 (1 point) How often did you have a drink containing alcohol in t he past year? Four or more times a week (4 points) Tobacco Use: Question Answer Notes Are you a: current smoker SMOKES 1 PPD STARTED SMOKING 20YR OLD. Patient counseled on the dangers of tobacco use and urged to quit: 07/29/2020 How many cigarettes a day do you smoke? 11-20 Are you interested in quitting? Ready to quit Counseled the patient on tobacco use, cessation provided 01/2021 REASON FOR REFERRAL No Information VITAL SIGNS No information MEDICATIONS Medication SIG (Take, Route, Frequency, Duration) Notes Start Da te End Date Status Oxygen as directed nasal cannula as needed for cluster headaches for 90 day(s) Feb, Active Oxygen 15 LPM nasal cannula as needed for headaches (Dr Green) Active Latuda 80 MG 1 tablet with food Orally Once a day for 30 day(s) Active Ciclopirox 1 % 1 application Externally Two times a Week for 30 Days Mar, Active Flovent HFA 44 MCG/ACT 2 puffs Inhalation Twice a day as needed Active SUMAtriptan Succinate 4 MG/0.5ML 0.5 ml as needed Subc utaneous Twice a day (max daily dose 2 a day, three a week) for 30 Active Flomax 0.4 MG 1 capsule 30 minutes after t he same meal each day Orally Once a day Active BuSpar Active Levothyroxine Sodium 75 MCG 1 tablet on an empty stoma ch in the morning Orally Once a day for 90 days Active Verapamil HCl 120 MG 1 tablet Orally four times daily Active Irbesartan 150 MG 1 tablet Orally Once a day for 30 Active Multi For Him Active Wellbutrin XL 150 MG 1 tablet in the morning Orally Once a day Active PROCEDURES No Information RESULTS No Results REASON FOR VISIT needs transfer appt MEDICAL (GENERAL) HISTORY Type Description Date Medical History hypertension Medical History rosacea Medical History Bipolar disorder Medical History h/o opiate addiction Medical History cluster headaches Medical History HLP Medical History Reflux/gastritis Medical History tobacco use Medical History ED Medical History mild BPH Medical History siezure-likely withdraw Medical History RAYNAULDS DISORDER Medical History HERPES Medical History EtOh use disorder-active Surgical History tonsillectomy 2009 Surgical History adenoidectomy as child Hospitalization History [facility] twice [facility] 2009 Hospitalization History [facility] - behavior health 06/2014 Hospitalization History [facility]- Seizures 09/01/2015 Hospitalization History [facility] behavioral health 01/29/19-02/02 Hospitalization History [facility] BEHAVIORAL HEALTH 5 DAYS 02/2020 Goals Section No Information Health Concerns No Information MEDICAL EQUIPMENT No Information MENTAL STATUS No Information FUNCTIONAL STATUS No Information ASSESSMENTS No Information PLAN OF TREATMENT Medication Medication Name Sig Start Date Stop Date SUMAtriptan Succinate 4 MG/0.5ML 0.5 ml as needed Subc utaneous Twice a day (max daily dose 2 a day, three a week) for 30 Verapamil HCl 120 MG 1 tablet Orally four times daily Irbesartan 150 MG 1 tablet Orally Once a day for 30 Next Appt Details Provider Name:Paula Early, 2020-10-16 10:30:00 AM, [address] [facility], , [place], [address], Provider Name:Richie Leavitt, 02:15:00 PM, [address], , [place], [address], Insurance Providers Payer Name Payer Address Payer Phone Insured Name Patient Relati onship to Insured Coverage Start Date Coverage End Date [facility] [id number] [facility] [id number] [place] self MEDICA[employer] [address] [facility] [id number] [place] self
--- OUTSIDE RECORDS SUMMARY | 2021-01-01 12:51 | CCD ---
Author Author [facility] Organization [facility] Address Unknown Phone Unavailable Care Team Providers Care Produce Associate Name Role Phone Niki Velasquez Unavailable PROBLEMS ALLERGIES No Known Allergies ENCOUNTERS from 1975 to 2020-10-21 IMMUNIZATIONS SOCIAL HISTORY REASON FOR REFERRAL No Information VITAL SIGNS MEDICATIONS PROCEDURES No Information RESULTS No Results REASON FOR VISIT MEDICAL (GENERAL) HISTORY Goals Section Health Concerns MEDICAL EQUIPMENT No Information MENTAL STATUS FUNCTIONAL STATUS ASSESSMENTS No Information PLAN OF TREATMENT Insurance Providers
--- OUTSIDE RECORDS SUMMARY | 2021-01-01 12:52 | CCD ---
Author Author [facility] Organization [facility] Address Unknown Phone Unavailable Care Team Providers Care Miner Helper Name Role Phone Dayanna PERLA MD Unavailable Unavailable Dayanna PERLA MD Unavailable Unavailable Dayanna PERLA MD Unavailable Unavailable Dayanna PERLA MD Unavailable Unavailable Dayanna PERLA MD Unavailable Unavailable Dayanna PERLA MD Unavailable Unavailable Dayanna PERLA MD Unavailable Unavailable Dayanna PERLA MD Unavailable Unavailable Dayanna PERLA MD Unavailable Unavailable Dayanna PERLA MD Unavailable Unavailable Dayanna PERLA MD Unavailable Unavailable Dayanna PERLA MD Unavailable Unavailable MINDA, Dayanna HOOPER MD Unavailable Unavailable MINDA, Dayanna HOOPER MD Unavailable Unavailable MINDA, Dayanna HOOPER MD Unavailable Unavailable MINDA, Dayanna HOOPER MD Unavailable Unavailable MINDA, Dayanna HOOPER MD Unavailable Unavailable MINDA, Dayanna HOOPER MD Unavailable Unavailable MINDA, Dayanna HOOPER MD Unavailable Unavailable MINDA, Dayanna HOOPER MD Unavailable Unavailable MINDA, Dayanna HOOPER MD Unavailable Unavailable MINDA, Dayanna HOOPER MD Unavailable Unavailable MINDA, Dayanna HOOPER MD Unavailable Unavailable MINDA, Dayanna HOOPER MD Unavailable Unavailable MINDA, Dayanna HOOPER MD Unavailable Unavailable MINDA, Dayanna HOOPER MD Unavailable Unavailable MINDA, Dayanna HOOPER MD Unavailable Unavailable MINDA, Dayanna HOOPER MD Unavailable Unavailable MINDA, Dayanna HOOPER MD Unavailable Unavailable MINDA, Dayanna HOOPER MD Unavailable Unavailable MINDA, Dayanna HOOPER MD Unavailable Unavailable MINDA, Dayanna HOOPER MD Unavailable Unavailable MINDA, Dayanna HOOPER MD Unavailable Unavailable MINDA, Dayanna HOOPER MD Unavailable Unavailable MINDA, Dayanna HOOPER MD Unavailable Unavailable MINDA, Dayanna HOOPER MD Unavailable Unavailable MINDA, Dayanna HOOPER MD Unavailable Unavailable MINDA, Dayanna HOOPER MD Unavailable Unavailable MINDA, Dayanna HOOPER MD Unavailable Unavailable MINDA, Dayanna HOOPER MD Unavailable Unavailable MINDA, Dayanna HOOPER MD Unavailable Unavailable SEARS, A ARPIT DO Unavailable Unavailable SEARS, A ARPIT DO Unavailable Unavailable SEARS, A ARPIT DO Unavailable Unavailable SEARS, A ARPIT DO Unavailable Unavailable SEARS, A ARPIT DO Unavailable Unavailable SEARS, A ARPIT DO Unavailable Unavailable SEARS, A ARPIT DO Unavailable Unavailable SEARS, A ARPIT DO Unavailable Unavailable SEARS, A ARPIT DO Unavailable Unavailable SEARS, A ARPIT DO Unavailable Unavailable SEARS, A ARPIT DO Unavailable Unavailable SEARS, A ARPIT DO Unavailable Unavailable SEARS, A ARPIT DO Unavailable Unavailable SEARS, A ARPIT DO Unavailable Unavailable SEARS, A ARPIT DO Unavailable Unavailable SEARS, A ARPIT DO Unavailable Unavailable SEARS, A ARPIT DO Unavailable Unavailable SEARS, A ARPIT DO Unavailable Unavailable SEARS, A ARPIT DO Unavailable Unavailable SEARS, A ARPIT DO Unavailable Unavailable SEARS, A ARPIT DO Unavailable Unavailable SEARS, A ARPIT DO Unavailable Unavailable SEARS, A ARPIT DO Unavailable Unavailable SEARS, A ARPIT DO Unavailable Unavailable SEARS, A ARPIT DO Unavailable Unavailable SEARS, A ARPIT DO Unavailable Unavailable SEARS, A ARPIT DO Unavailable Unavailable SEARS, A ARPIT DO Unavailable Unavailable SEARS, A ARPIT DO Unavailable Unavailable SEARS, A ARPIT DO Unavailable Unavailable SEARS, A ARPIT DO Unavailable Unavailable SEARS, A ARPIT DO Unavailable Unavailable SEARS, A ARPIT DO Unavailable Unavailable SEARS, A ARPIT DO Unavailable Unavailable SEARS, A ARPIT DO Unavailable Unavailable SEARS, A ARPIT DO Unavailable Unavailable SEARS, A ARPIT DO Unavailable Unavailable SEARS, A ARPIT DO Unavailable Unavailable SEARS, A ARPIT DO Unavailable Unavailable SEARS, A ARPIT DO Unavailable Unavailable SEARS, A ARPIT DO Unavailable Unavailable SEARS, A ARPIT DO Unavailable Unavailable SEARS, A ARPIT DO Unavailable Unavailable SEARS, A ARPIT DO Unavailable Unavailable SEARS, A ARPIT DO Unavailable Unavailable SEARS, A ARPIT DO Unavailable Unavailable SEARS, A ARPIT DO Unavailable Unavailable SEARS, A ARPIT DO Unavailable Unavailable Cougler, S Nelson INFORMATICA MDM DEVELOPER Unavailable Unavailable Cougler, S Nelson INFORMATICA MDM DEVELOPER Unavailable Unavailable Cougler, S Nelson INFORMATICA MDM DEVELOPER Unavailable Unavailable Cougler, S Nelson INFORMATICA MDM DEVELOPER Unavailable Unavailable Cougler, S Nelson INFORMATICA MDM DEVELOPER Unavailable Unavailable Cougler, S Nelson INFORMATICA MDM DEVELOPER Unavailable Unavailable Cougler, S Nelson INFORMATICA MDM DEVELOPER Unavailable Unavailable Cougler, S Nelson INFORMATICA MDM DEVELOPER Unavailable Unavailable Cougler, S Nelson INFORMATICA MDM DEVELOPER Unavailable Unavailable Cougler, S Nelson INFORMATICA MDM DEVELOPER Unavailable Unavailable Cougler, S Nelson INFORMATICA MDM DEVELOPER Unavailable Unavailable Cougler, S Nelson INFORMATICA MDM DEVELOPER Unavailable Unavailable Cougler, S Nelson INFORMATICA MDM DEVELOPER Unavailable Unavailable Cougler, S Nelson INFORMATICA MDM DEVELOPER Unavailable Unavailable Cougler, S Nelson INFORMATICA MDM DEVELOPER Unavailable Unavailable Cougler, S Nelson INFORMATICA MDM DEVELOPER Unavailable Unavailable Cougler, S Nelson INFORMATICA MDM DEVELOPER Unavailable Unavailable Cougler, S Nelson INFORMATICA MDM DEVELOPER Unavailable Unavailable Cougler, S Nelson INFORMATICA MDM DEVELOPER Unavailable Unavailable Cougler, S Nelson INFORMATICA MDM DEVELOPER Unavailable Unavailable Cougler, S Nelson INFORMATICA MDM DEVELOPER Unavailable Unavailable Cougler, S Nelson INFORMATICA MDM DEVELOPER Unavailable Unavailable Cougler, S Nelson INFORMATICA MDM DEVELOPER Unavailable Unavailable Cougler, S Nelson INFORMATICA MDM DEVELOPER Unavailable Unavailable Cougler, S Nelson INFORMATICA MDM DEVELOPER Unavailable Unavailable Cougler, S Nelson INFORMATICA MDM DEVELOPER Unavailable Unavailable Cougler, S Nelson INFORMATICA MDM DEVELOPER Unavailable Unavailable Cougler, S Nelson INFORMATICA MDM DEVELOPER Unavailable Unavailable Cougler, S Nelson INFORMATICA MDM DEVELOPER Unavailable Unavailable Cougler, S Nelson INFORMATICA MDM DEVELOPER Unavailable Unavailable Cougler, S Nelson INFORMATICA MDM DEVELOPER Unavailable Unavailable Cougler, S Nelson INFORMATICA MDM DEVELOPER Unavailable Unavailable Cougler, S Nelson INFORMATICA MDM DEVELOPER Unavailable Unavailable Cougler, S Nelson INFORMATICA MDM DEVELOPER Unavailable Unavailable Cougler, S Nelson INFORMATICA MDM DEVELOPER Unavailable Unavailable Cougler, S Nelson INFORMATICA MDM DEVELOPER Unavailable Unavailable Cougler, S Nelson INFORMATICA MDM DEVELOPER Unavailable Unavailable Cougler, S Nelson INFORMATICA MDM DEVELOPER Unavailable Unavailable Cougler, S Nelson INFORMATICA MDM DEVELOPER Unavailable Unavailable Cougler, S Nelson INFORMATICA MDM DEVELOPER Unavailable Unavailable Cougler, S Nelson INFORMATICA MDM DEVELOPER Unavailable Unavailable Cougler, S Nelson INFORMATICA MDM DEVELOPER Unavailable Unavailable Cougler, S Nelson INFORMATICA MDM DEVELOPER Unavailable Unavailable Cougler, S Nelson INFORMATICA MDM DEVELOPER Unavailable Unavailable TEX BECKER MD Unavailable Unavailable Tom, Jason Call MD Unavailable Unavailab le Tom, Jason Call MD Unavailable Unavailab le Tom, Jason Call MD Unavailable Unavailab le Tom, Jason Call MD Unavailable Unavailab le Tom, Jason Call MD Unavailable Unavailab le Tom, Jaosn Call MD Unavailable Unavailab le Tom, Jason Call MD Unavailable Unavailab le Tom, Jason Call MD Unavailable Unavailab le Tom, Jason Call MD Unavailable Unavailab le Tom, Jason Call MD Unavailable Unavailab le Tom, Jason Call MD Unavailable Unavailab le Tom, Jason Call MD Unavailable Unavailab le Tom, Jason Call MD Unavailable Unavailab le Tom, Jason Call MD Unavailable Unavailab le Tom, Jason Call MD Unavailable Unavailab le Tom, Jason Call MD Unavailable Unavailab le Tom, Jason Call MD Unavailable Unavailab le Tom, Jason Call MD Unavailable Unavailab le Tom, Jason Call MD Unavailable Unavailab le Tom, Jason Call MD Unavailable Unavailab le Tom, Jason Call MD Unavailable Unavailab le Tom, Jason Call MD Unavailable Unavailab le Tom, Jason Call MD Unavailable Unavailab le Tom, Jason Call MD Unavailable Unavailab le Tom, Jason Call MD Unavailable Unavailab le Tom, Jason Call MD Unavailable Unavailab le Tom, Jason Call MD Unavailable Unavailab le Tom, Jason Call MD Unavailable Unavailab le Tom, Jason Call MD Unavailable Unavailab le Tom, Jason Call MD Unavailable Unavailab le Tom, Jason Call MD Unavailable Unavailab le Tom, Jason Call MD Unavailable Unavailab le Tom, Jason Call MD Unavailable Unavailab le ASAR, CATHY SORTO Unavailable Unavailable ASAR, CATHY SORTO Unavailable Unavailable ASAR, CATHY SORTO Unavailable Unavailable ASAR, CATHY SORTO Unavailable Unavailable ASAR, CATHY SORTO Unavailable Unavailable ASAR, CATHY SORTO Unavailable Unavailable ASAR, CATHY SORTO Unavailable Unavailable Asar, Kyaw Morgan MD Unavailable Unavailable CLYDE, RONALD SORTO Unavailable Unavailable CLYDE, RONALD Unavailable Unavailable CLYDE, RONALD Unavailable Unavailable CLYDE, RONALD SORTO Unavailable Unavailable CLYDE, RONALD MD Unavailable Unavailable BROUGHAL, C ALDEN PA Unavailable Unavailable BROUGHAL, C ALDEN PA Unavailable Unavailable BROUGHAL, C ALDEN PA Unavailable Unavailable BROUGHAL, C ALDEN PA Unavailable Unavailable BROUGHAL, C ALDEN PA Unavailable Unavailable BROUGHAL, C ALDEN PA Unavailable Unavailable REASON, L EDWARD DO Unavailable Unavailable REASON, L EDWARD DO Unavailable Unavailable REASON, L EDWARD DO Unavailable Unavailable REASON, L EDWARD DO Unavailable Unavailable REASON, L EDWARD DO Unavailable Unavailable REASON, L EDWARD DO Unavailable Unavailable REASON, L EDWARD DO Unavailable Unavailable REASON, L EDWARD DO Unavailable Unavailable REASON, L EDWARD DO Unavailable Unavailable REASON, L EDWARD DO Unavailable Unavailable REASON, L EDWARD DO Unavailable Unavailable REASON, L EDWARD DO Unavailable Unavailable REASON, L EDWARD DO Unavailable Unavailable REASON, L EDWARD DO Unavailable Unavailable REASON, L EDWARD DO Unavailable Unavailable REASON, L EDWARD DO Unavailable Unavailable REASON, L EDWARD DO Unavailable Unavailable REASON, L EDWARD DO Unavailable Unavailable REASON, L EDWARD DO Unavailable Unavailable REASON, L EDWARD DO Unavailable Unavailable REASON, L EDWARD DO Unavailable Unavailable REASON, L EDWARD DO Unavailable Unavailable REASON, L EDWARD DO Unavailable Unavailable REASON, L EDWARD DO Unavailable Unavailable REASON, L EDWARD DO Unavailable Unavailable REASON, L EDWARD DO Unavailable Unavailable REASON, L EDWARD DO Unavailable Unavailable REASON, L EDWARD DO Unavailable Unavailable REASON, L EDWARD DO Unavailable Unavailable REASON, L EDWARD DO Unavailable Unavailable REASON, L EDWARD DO Unavailable Unavailable REASON, L EDWARD DO Unavailable Unavailable REASON, L EDWARD DO Unavailable Unavailable REASON, L EDWARD DO Unavailable Unavailable REASON, L EDWARD DO Unavailable Unavailable REASON, L EDWARD DO Unavailable Unavailable REASON, L EDWARD DO Unavailable Unavailable REASON, L EDWARD DO Unavailable Unavailable REASON, L EDWARD DO Unavailable Unavailable REASON, L EDWARD DO Unavailable Unavailable REASON, L EDWARD DO Unavailable Unavailable REASON, L EDWARD DO Unavailable Unavailable REASON, L EDWARD DO Unavailable Unavailable REASON, L EDWARD DO Unavailable Unavailable REASON, L EDWARD DO Unavailable Unavailable REASON, L EDWARD DO Unavailable Unavailable REASON, L EDWARD DO Unavailable Unavailable REASON, L EDWARD DO Unavailable Unavailable REASON, L EDWARD DO Unavailable Unavailable REASON, L EDWARD DO Unavailable Unavailable REASON, L EDWARD DO Unavailable Unavailable REASON, L EDWARD DO Unavailable Unavailable REASON, L EDWARD DO Unavailable Unavailable REASON, L EDWARD DO Unavailable Unavailable REASON, L EDWARD DO Unavailable Unavailable REASON, L EDWARD DO Unavailable Unavailable REASON, L EDWARD DO Unavailable Unavailable REASON, L EDWARD DO Unavailable Unavailable REASON, L EDWARD DO Unavailable Unavailable REASON, L EDWARD DO Unavailable Unavailable REASON, L EDWARD DO Unavailable Unavailable REASON, L EDWARD DO Unavailable Unavailable REASON, L EDWARD DO Unavailable Unavailable REASON, L EDWARD DO Unavailable Unavailable REASON, L EDWARD DO Unavailable Unavailable REASON, L EDWARD DO Unavailable Unavailable REASON, L EDWARD DO Unavailable Unavailable Re-disclosure Warning The records that you are about to access may contain information from federally-assisted alcohol or drug abuse programs. If such information is present, then the following federally mandated warning applies: This information has been disclosed to you from records protected by federal confidentiality rules (42 CFR part 2). The federal rules prohibit you from making any further disclosure of this information unless further disclosure is expressly permitted by the written consent of the person to whom it pertains or as otherwise permitted by 42 CFR part 2. A general authorization for the release of medical or other information is NOT sufficient for this purpose. The Federal rules restrict any use of the information to criminally investigate or prosecute any alcohol or drug abuse patient.The records that you are about to access may contain highly sensitive health information, the redisclosure of which is protected by Article 27-F of the [place] Public Health law. If you continue you may have access to information: Regarding HIV / AIDS; Provided by facilities licensed or operated by the [place] Office of Mental [facility]; or Provided by the [place] Office for People With Developmental Disabilities. If such information is present, then the following [place] mandated warning applies: This information has been disclosed to you from confidential records which are protected by state law. State law prohibits you from making any further disclosure of this information without the specific written consent of the person to whom it pertains, or as otherwise permitted by law. Any unauthorized further disclosure in violation of state law may result in a fine or usp sentence or both. A general authorization for the release of medical or other information is NOT sufficient authorization for further disc losure. Allergies and Adverse Reactions Type Description Substance Reaction Status Data Source(s ) Drug allergy Drug allergy No Known Allergies [facility] Drug allergy Drug allergy No Known Allergies [facility] Drug allergy aspirin aspirin [facility] Family History Family Member Name Family Member Gender Family Member Status Date o f Status Description Data Source(s) Unknown Male Problem MEDENT ([facility]) to pt Unknown Male Problem MEDENT ([facility] Encounters Encounter Providers Location Date Indications Data Source(s ) Outpatient Attender: ARPIT CADE DO [facility] 12/03/2020 01:23:00 AM EDT [facility] ([facility]) Outpatient Attender: ARPIT CADE DO [facility] 12/02/2020 01:23:00 AM EDT [facility] ([facility]) Outpatient Attender: ARPIT CADE DO [facility] 12/01/2020 01:23:00 AM EDT [facility] ([facility]) [place] [address] [address] 10/17/2020 12:00:00 AM EDT eCW1 ([facility]) [place] [address] [address] 09/17/2020 12:00:00 AM EDT eCW1 ([facility]) [place] [address] [address] 09/16/2020 12:00:00 AM EDT eCW1 ([facility]) [place] [address] [address] 07/29/2020 12:00:00 AM EDT eCW1 ([facility]) Inpatient Attender: Oneyda Alan DAdmitter: Oneyda Santos MDConsultant: ALDEN WILD CPSCAORT-MSU2 07/05/2020 08:07:00 PM EDT - 07/10/2020 11:25:00 AM EDT COVID 19; ALCOHOL WITHDRAWAL [facility] COVID 19; ALCOHOL WITHDRAWAL Patient discharged. Emergency Attender: Nelson Williamson NP ED-ED 07/05 02:31:00 PM EDT - 07/05/2020 06:52:00 PM EDT DETOX [facility] DETOX Patient discharged. Outpatient Attender: WAQAS STEVENSON DO ED-LABPNP 07/05 01:03:00 PM EDT - 07/05/2020 01:04:00 PM EDT DETOX ADMISSION [facility] DETOX ADMISSION Patient discharged. [place] [address] [address] 06/20/2020 12:00:00 AM EDT eCW1 ([facility]) [place] [address] [address] 06/13/2020 12:00:00 AM EDT eCW1 ([facility]) [place] [address] [address] 06/03/2020 12:00:00 AM EDT eCW1 ([facility]) [place] [address] [address] 05/30/2020 12:00:00 AM EST eCW1 ([facility]) [facility] [address] [address] 05/12/2020 12:00:00 AM EST eCW1 ([facility]) [place] [address] [address] 03/04/2020 12:00:00 AM EST eCW1 ([facility]) [place] [address] [address] 02/21/2020 12:00:00 AM EST eCW1 ([facility]) [place] [address] [address] 02/06/2020 12:00:00 AM EST eCW1 ([facility]) Inpatient Attender: Cathy Garrett nder: CATHY HU MDAdmitter: Cathy Hu MD CPSCAORT-CHEPPDREH 01/24/2020 10:00:00 AM EST - 02/04/2020 09:14:00 AM EST PSYCHOACTIVE SUBSTANCE DEPENDENCE [facility] PSYCHOACTIVE SUBSTANCE DEPENDENCE Patient discharged. Outpatient Attender: RUFUS PERLA MD CPSCAORT-LABPNP 01/18/2020 1 2:20:00 PM EDT SCREENING [facility] SCREENING Inpatient Attender: RUFUS PERLA MDAdmitter: RUFUS PERLA MD ED-MSP 01/14/2020 07:35:00 PM EDT F10.20 [facility] F10.20 Patient admitted. Outpatient Attender: RUFUS PERLA MD CPSCAORT-LABEJN 01/14/2020 0 2:00:00 PM EDT VENEREAL DISEASE SCREENING [facility] VENEREAL DISEASE SCREENING Inpatient Attender: RUFUS PERLA MDAdmitter: RUFUS PERLA MD ED-MSP 01/14/2020 10:15:00 AM EDT - 01/22/2020 02:00:00 PM EST [facility] Inpatient Attender: RONALD Gan mesfin: TEX BECKER MDAdmitter: RONALD TANG MD ER-3RD 12/03/2019 10:58:00 PM EDT - 12/12/2019 12:10:00 PM EDT [facility] Patient discharged. Immunizations Vaccine Date Status Description Data Source(s) COVID-19 VACCINE [email or web address] 06/18/2020 12:00:00 AM EDT [facility] Complete: YESThis Data wa s Submitted to [facility] Via [employer]. COVID-19 VACCINE [email or web address] 05/28/2020 12:00:00 AM EST completed [facility] Vaccine Series Complete: NOThis Data was Submitted to [facility] [employer]. Medications Medication Brand Name Start Date Product Form Dose Route Admi nistrative Instructions Pharmacy Instructions Status Indications Reaction Description Data Source(s) 1 mg 12/18/2020 12:00:00 AM EDT tablet 90 TAKE ONE TABLET BY MOUTH THREE TIMES A DAY MAXIMUM DAILY DOSE = 3 TAKE ONE TABLET BY MOUTH THREE TIMES A D AY MAXIMUM DAILY DOSE = 3 SOLD: 12/18/2020 [facility] buspirone hydrochloride 10 MG Oral Tablet BUSPIRONE HCL 12/09/2020 12:00:00 AM EDT tablet 14 TAKE ONE TABLET BY MOUTH TWI CE A DAY FOR ANXIETY TAKE ONE TABLET BY MOUTH TWICE A DAY FOR ANXIETY SOLD: 12/18/2020 [facility] 100 mg 12/09/2020 12:00:00 AM EDT tablet 14 TAKE ONE-HALF TABLET BY MOUTH TWICE A DAY FOR MOOD TAKE ONE-HALF TABLET BY MOUTH TWICE A DAY FOR MOOD BERT [facility] Naltrexone hydrochloride 50 MG Oral Tablet NALTREXONE HCL 12/09/2020 12:00:00 AM EDT tablet 7 TAKE ONE TABLET BY MOUTH JAIMIE RY MORNING FOR ALCOHOL CONTROL TAKE ONE TABLET BY MOUTH EVERY MORNING FOR ALCOHOL CONTROL SOLD: 12/18/2020 [facility] Paroxetine Hydrochloride 40 MG Oral Tablet PAROXETINE HCL 12/09/2020 12:00:00 AM EDT tablet 7 TAKE ONE TABLET BY MOUTH JAIMIE RY MORNING FOR MOOD TAKE ONE TABLET BY MOUTH EVERY MORNING FOR MOOD SOLD: 12/18/2020 [facility] 2 mg 12/09/2020 12:00:00 AM EDT gum 110 CHEW 1 PIECE OF GUM EVERY 4 HOURS NEEDED FOR NICOTINE WITHDRAWAL CHEW 1 PIECE OF GUM EVERY 4 HOURS NEE DED FOR NICOTINE WITHDRAWAL SOLD: 12/18/2020 [facility] 1 mg 11/18/2020 12:00:00 AM EDT tablet 90 TAKE ONE TABLET BY MOUTH THREE TIMES A DAY MAXIMUM DAILY DOSE = 3 TABLETS TAKE ONE TABLET BY MOUTH THREE TIMES A DAY MAXIMUM DAILY DOSE = 3 TABLETS SOLD: 11/18/2020 [facility] 1 mg 10/17/2020 12:00:00 AM EDT tablet 90 TAKE ONE TABLET BY MOUTH THREE TIMES A DAY MAXIMUM DAILY DOSE = 3 TAKE ONE TABLET BY MOUTH THREE TIMES A D AY MAXIMUM DAILY DOSE = 3 SOLD: 10/17/2020 [facility] 1 mg 09/18/2020 12:00:00 AM EDT tablet 90 TAKE ONE TABLET BY MOUTH THREE TIMES A DAY MAXIMUM DAILY DOSE = 3 TABLETS TAKE ONE TABLET BY MOUTH THREE TIMES A DAY MAXIMUM DAILY DOSE = 3 TABLETS SOLD: 09/18/2020 [facility] 4 mg/0.5 mL 09/16/2020 12:00:00 AM EDT cartridge 6 INJECT 0.5ML TWO TIMES A DAY NEEDED MAXIMUM DAILY DOSE = 2 INJECTIONS DAILY INJECT 0.5ML TWO TIMES A DAY NEEDED MAXIMUM DAILY DOSE = 2 INJECTIONS DAILY SOLD: 09/18/2020 [facility] 4 mg/0.5 mL 09/16/2020 12:00:00 AM EDT cartridge 6 INJECT 0.5ML TWO TIMES A DAY NEEDED MAXIMUM DAILY DOSE = 2 INJECTIONS DAILY INJECT 0.5ML TWO TIMES A DAY NEEDED MAXIMUM DAILY DOSE = 2 INJECTIONS DAILY SOLD: 10/17/2020 [facility] 1 mg 08/20/2020 12:00:00 AM EDT tablet 90 TAKE ONE TABLET BY MOUTH THREE TIMES A DAY MAXIMUM DAILY DOSE = 3 TABLETS TAKE ONE TABLET BY MOUTH THREE TIMES A DAY MAXIMUM DAILY DOSE = 3 TABLETS SOLD: 08/20/2020 [facility] 150 mg 08/13/2020 12:00:00 AM EDT tablet 30 TAKE ONE TABLET BY MOUTH EVERY DAY TAKE ONE TABLET BY MOUTH EVERY DAY SOLD: 10/17/2020 [facility] 150 mg 08/13/2020 12:00:00 AM EDT tablet 30 TAKE ONE TABLET BY MOUTH EVERY DAY TAKE ONE TABLET BY MOUTH EVERY DAY SOLD: 08/18/2020 [facility] 150 mg 08/13/2020 12:00:00 AM EDT tablet 30 TAKE ONE TABLET BY MOUTH EVERY DAY TAKE ONE TABLET BY MOUTH EVERY DAY SOLD: 09/18/2020 [facility] 1 mg 07/22/2020 12:00:00 AM EDT tablet 90 TAKE ONE TABLET BY MOUTH THREE TIMES A DAY MAXIMUM DAILY DOSE = 3 TABLETS TAKE ONE TABLET BY MOUTH THREE TIMES A DAY MAXIMUM DAILY DOSE = 3 TABLETS SOLD: 07/22/2020 [facility] 100 mg 07/10/2020 12:00:00 AM EDT tablet 30 TAKE ONE TABLET BY MOUTH EVERY DAY TAKE ONE TABLET BY MOUTH EVERY DAY SOLD: 07/14/2020 [facility] 75 mcg 06/23/2020 12:00:00 AM EDT tablet 90 TAKE ONE TABLET BY MOUTH EVERY MORNING ON AN EMPTY STOMACH TAKE ONE TABLET BY MOUTH EVERY MORNING O N AN EMPTY STOMACH SOLD: 09/18/2020 [facility] 1 mg 06/23/2020 12:00:00 AM EDT tablet 90 TAKE ONE TABLET BY MOUTH THREE TIMES A DAY MAXIMUM DAILY DOSE = 3 TABLETS TAKE ONE TABLET BY MOUTH THREE TIMES A DAY MAXIMUM DAILY DOSE = 3 TABLETS SOLD: 06/23/2020 [facility] 75 mcg 06/23/2020 12:00:00 AM EDT tablet 90 TAKE ONE TABLET BY MOUTH EVERY MORNING ON AN EMPTY STOMACH TAKE ONE TABLET BY MOUTH EVERY MORNING O N AN EMPTY STOMACH SOLD: 06/23/2020 [facility] 150 mg 06/14/2020 12:00:00 AM EDT tablet 30 TAKE ONE TABLET BY MOUTH EVERY DAY TAKE ONE TABLET BY MOUTH EVERY DAY SOLD: 06/16/2020 [facility] 150 mg 06/14/2020 12:00:00 AM EDT tablet 30 TAKE ONE TABLET BY MOUTH EVERY DAY TAKE ONE TABLET BY MOUTH EVERY DAY SOLD: 07/14/2020 [facility] 0.4 mg 06/04/2020 12:00:00 AM EDT capsule 90 TAKE ONE CAPSULE BY MOUTH 30 MINUTES AFTER THE SAME MEAL EACH DAY TAKE ONE CAPSULE BY MOUTH 30 MINUTES AFT ER THE SAME MEAL EACH DAY SOLD: 12/18/2020 [facility] 0.4 mg 06/04/2020 12:00:00 AM EDT capsule 90 TAKE ONE CAPSULE BY MOUTH 30 MINUTES AFTER THE SAME MEAL EACH DAY TAKE ONE CAPSULE BY MOUTH 30 MINUTES AFT ER THE SAME MEAL EACH DAY SOLD: 09/18/2020 [facility] 0.4 mg 06/04/2020 12:00:00 AM EDT capsule 90 TAKE ONE CAPSULE BY MOUTH 30 MINUTES AFTER THE SAME MEAL EACH DAY TAKE ONE CAPSULE BY MOUTH 30 MINUTES AFT ER THE SAME MEAL EACH DAY SOLD: 06/08/2020 [facility] 120 mg 05/31/2020 12:00:00 AM EST tablet 120 TAKE ONE TABLET BY MOUTH FOUR TIMES A DAY TAKE ONE TABLET BY MOUTH FOUR TIMES A DAY SOLD: 10/17/2020 [facility] 75 mcg 05/31/2020 12:00:00 AM EST tablet 30 TAKE 1 TABLET BY MOUTH ON AN EMPTY STOMACH IN THE MORNING ONCE A DAY TAKE 1 TABLET BY MOUTH ON AN EMPTY STOMACH IN THE MORNING ONCE A DAY SOLD: 06/01/2020 [facility] 120 mg 05/31/2020 12:00:00 AM EST tablet 120 TAKE ONE TABLET BY MOUTH FOUR TIMES A DAY TAKE ONE TABLET BY MOUTH FOUR TIMES A DAY SOLD: 06/01/2020 [facility] 120 mg 05/31/2020 12:00:00 AM EST tablet 120 TAKE ONE TABLET BY MOUTH FOUR TIMES A DAY TAKE ONE TABLET BY MOUTH FOUR TIMES A DAY SOLD: 09/18/2020 [facility] 120 mg 05/31/2020 12:00:00 AM EST tablet 120 TAKE ONE TABLET BY MOUTH FOUR TIMES A DAY TAKE ONE TABLET BY MOUTH FOUR TIMES A DAY SOLD: 07/14/2020 [facility] 120 mg 05/31/2020 12:00:00 AM EST tablet 120 TAKE ONE TABLET BY MOUTH FOUR TIMES A DAY TAKE ONE TABLET BY MOUTH FOUR TIMES A DAY SOLD: 08/18/2020 [facility] 1 mg 05/23/2020 12:00:00 AM EST tablet 90 TAKE ONE TABLET BY MOUTH THREE TIMES A DAY MAXIMUM DAILY DOSE = 3 TABLETS TAKE ONE TABLET BY MOUTH THREE TIMES A DAY MAXIMUM DAILY DOSE = 3 TABLETS SOLD: 05/23/2020 [facility] 100 mg 04/24/2020 12:00:00 AM EST tablet sustained-releas e 12 hr 60 TAKE ONE TABLET BY MOUTH TWICE A DAY TAKE ONE TABLET BY MOUTH TWICE A DAY SOLD: 05/23/2020 [facility] 1 mg 04/24/2020 12:00:00 AM EST tablet 90 TAKE ONE TABLET BY MOUTH THREE TIMES A DAY MAXIMUM DAILY DOSE = 3 TAKE ONE TABLET BY MOUTH THREE TIMES A D AY MAXIMUM DAILY DOSE = 3 SOLD: 04/24/2020 [facility] 100 mg 04/24/2020 12:00:00 AM EST tablet sustained-releas e 12 hr 60 TAKE ONE TABLET BY MOUTH TWICE A DAY TAKE ONE TABLET BY MOUTH TWICE A DAY SOLD: 08/18/2020 [facility] 100 mg 04/24/2020 12:00:00 AM EST tablet sustained-releas e 12 hr 60 TAKE ONE TABLET BY MOUTH TWICE A DAY TAKE ONE TABLET BY MOUTH TWICE A DAY SOLD: 07/22/2020 [facility] 100 mg 04/24/2020 12:00:00 AM EST tablet sustained-releas e 12 hr 60 TAKE ONE TABLET BY MOUTH TWICE A DAY TAKE ONE TABLET BY MOUTH TWICE A DAY SOLD: 09/18/2020 [facility] 100 mg 04/24/2020 12:00:00 AM EST tablet sustained-releas e 12 hr 60 TAKE ONE TABLET BY MOUTH TWICE A DAY TAKE ONE TABLET BY MOUTH TWICE A DAY SOLD: 04/24/2020 [facility] 100 mg 04/24/2020 12:00:00 AM EST tablet sustained-releas e 12 hr 60 TAKE ONE TABLET BY MOUTH TWICE A DAY TAKE ONE TABLET BY MOUTH TWICE A DAY SOLD: 06/23/2020 [facility] 1 mg 03/25/2020 12:00:00 AM EST tablet 90 TAKE ONE TABLET BY MOUTH THREE TIMES A DAY MAXIMUM DAILY DOSE = 3 TABLETS TAKE ONE TABLET BY MOUTH THREE TIMES A DAY MAXIMUM DAILY DOSE = 3 TABLETS SOLD: 03/25/2020 [facility] 4 mg/0.5 mL 03/09/2020 12:00:00 AM EST cartridge 6 INJECT 0.5ML UNDER THE SKIN NEEDED TWICE DAILY (MAX 2/DAY, 3/WEEK) INJECT 0.5ML UNDER THE SKIN NEEDED TWICE DAILY (MAX 2/DAY, 3/WEEK) SOLD: 07/14/2020 [facility] 4 mg/0.5 mL 03/09/2020 12:00:00 AM EST cartridge 6 INJECT 0.5ML UNDER THE SKIN NEEDED TWICE DAILY (MAX 2/DAY, 3/WEEK) INJECT 0.5ML UNDER THE SKIN NEEDED TWICE DAILY (MAX 2/DAY, 3/WEEK) SOLD: 08/18/2020 [facility] 4 mg/0.5 mL 03/09/2020 12:00:00 AM EST cartridge 6 INJECT 0.5ML UNDER THE SKIN NEEDED TWICE DAILY (MAX 2/DAY, 3/WEEK) INJECT 0.5ML UNDER THE SKIN NEEDED TWICE DAILY (MAX 2/DAY, 3/WEEK) SOLD: 04/18/2020 [facility] 4 mg/0.5 mL 03/09/2020 12:00:00 AM EST cartridge 6 INJECT 0.5ML UNDER THE SKIN NEEDED TWICE DAILY (MAX 2/DAY, 3/WEEK) INJECT 0.5ML UNDER THE SKIN NEEDED TWICE DAILY (MAX 2/DAY, 3/WEEK) SOLD: 05/17/2020 [facility] 4 mg/0.5 mL 03/09/2020 12:00:00 AM EST cartridge 6 INJECT 0.5ML UNDER THE SKIN NEEDED TWICE DAILY (MAX 2/DAY, 3/WEEK) INJECT 0.5ML UNDER THE SKIN NEEDED TWICE DAILY (MAX 2/DAY, 3/WEEK) SOLD: 03/20/2020 [facility] 4 mg/0.5 mL 03/09/2020 12:00:00 AM EST cartridge 6 INJECT 0.5ML UNDER THE SKIN NEEDED TWICE DAILY (MAX 2/DAY, 3/WEEK) INJECT 0.5ML UNDER THE SKIN NEEDED TWICE DAILY (MAX 2/DAY, 3/WEEK) SOLD: 06/16/2020 [facility] Oxygen UNK 03/04/2020 12:00:00 AM EST active Oxygen eCW1 ([facility]) Oxygen UNK 03/04/2020 12:00:00 AM EST active Oxygen eCW1 ([facility]) Oxygen UNK 03/04/2020 12:00:00 AM EST active eCW1 ([facility]) Oxygen UNK 03/04/2020 12:00:00 AM EST active Oxygen eCW1 ([facility]) Oxygen UNK 03/04/2020 12:00:00 AM EST active Oxygen eCW1 ([facility]) Oxygen UNK 03/04/2020 12:00:00 AM EST active Oxygen eCW1 ([facility]) Oxygen UNK 03/04/2020 12:00:00 AM EST active Oxygen eCW1 ([facility]) Oxygen UNK 03/04/2020 12:00:00 AM EST active Oxygen eCW1 ([facility]) Oxygen UNK 03/04/2020 12:00:00 AM EST active Oxygen eCW1 ([facility]) 1 mg 02/22/2020 12:00:00 AM EST tablet 90 TAKE ONE TABLET BY MOUTH THREE TIMES A DAY MAXIMUM DAILY DOSE = 3 TABLETS TAKE ONE TABLET BY MOUTH THREE TIMES A DAY MAXIMUM DAILY DOSE = 3 TABLETS SOLD: 02/22/2020 [facility] 150 mg 02/15/2020 12:00:00 AM EST tablet 30 TAKE ONE TABLET BY MOUTH EVERY DAY TAKE ONE TABLET BY MOUTH EVERY DAY SOLD: 02/18/2020 [facility] 120 mg 02/04/2020 12:00:00 AM EST tablet 120 TAKE ONE TABLET BY MOUTH FOUR TIMES A DAY AT 8AM., NOON, 4PM., AND 8PM TAKE ONE TABLET BY MOUTH FOUR TIMES A DAY AT 8AM., NOON, 4PM., AND 8PM SOLD: 02/18/2020 [facility] buspirone hydrochloride 10 MG Oral Tablet BUSPIRONE HCL 02/04/2020 12:00:00 AM EST tablet 90 TAKE ONE TABLET BY MOUTH THR EE TIMES A DAY TAKE ONE TABLET BY MOUTH THREE TIMES A DAY SOLD: 02/18/2020 [facility] 7 mg/24 hr 02/04/2020 12:00:00 AM EST patch 24 hour 28 APPLY 1 PATCH DAILY APPLY 1 PATCH DAILY SOLD: 02/18/2020 [facility] 75 mcg 02/04/2020 12:00:00 AM EST tablet 30 TAKE ONE TABLET BY MOUTH EVERY DAY TAKE ONE TABLET BY MOUTH EVERY DAY SOLD: 02/18/2020 [facility] 24 HR Bupropion Hydrochloride 150 MG Extended Release Oral T ablet BUPROPION HCL 02/04/2020 12:00:00 AM EST tablet extended release 24 hr 30 TAKE ONE TABLET BY MOUTH EVERY DAY TAKE ONE TABLET BY MOUTH EVERY DAY SOLD: 02/18/2020 [facility] 0.4 mg 02/04/2020 12:00:00 AM EST capsule 30 TAKE ONE CAPSULE BY MOUTH EVERY DAY AT 8PM. TAKE ONE CAPSULE BY MOUTH EVERY DAY AT 8PM. SOLD: 02/18/2020 [facility] 4 mg/actuation 02/04/2020 12:00:00 AM EST spray,non-aerosol 2 USE 4MG NASALLY DIRECTED USE 4MG NASALLY DIRECTED SOLD: 02/18/2020 [facility] 10 mg 02/04/2020 12:00:00 AM EST tablet 30 TAKE ONE TABLET BY MOUTH EVERY DAY TAKE ONE TABLET BY MOUTH EVERY DAY SOLD: 02/18/2020 [facility] 2 mg 02/04/2020 12:00:00 AM EST gum 220 CHEW 1 PIECE EVERY HOUR NEEDED FOR NICOTINE CRAVINGS CHEW 1 PIECE EVERY HOUR NEEDED FOR NICOTINE CRAVING S SOLD: 02/18/2020 [facility] 300 mg/3 mL (100 mg/mL x 3) 12/28/2019 12:00:00 AM EDT syrin ge 3 INJECT 3 SYRINGES UNDER THE SKIN ONCE A MONTH FOR CLUSTER HEADACHES MAXIMUM DAILY DOSE = 3 INJECT 3 SYRINGES UNDER THE SKIN ONCE A MONTH FOR CLUSTER HEADACHES MAXIMUM DAILY DOSE = 3 SOLD: 01/05/2020 [facility] 300 mg/3 mL (100 mg/mL x 3) 12/28/2019 12:00:00 AM EDT syrin ge 3 INJECT 3 SYRINGES UNDER THE SKIN ONCE A MONTH FOR CLUSTER HEADACHES MAXIMUM DAILY DOSE = 3 INJECT 3 SYRINGES UNDER THE SKIN ONCE A MONTH FOR CLUSTER HEADACHES MAXIMUM DAILY DOSE = 3 SOLD: 04/18/2020 [facility] 300 mg/3 mL (100 mg/mL x 3) 12/28/2019 12:00:00 AM EDT syrin ge 3 INJECT 3 SYRINGES UNDER THE SKIN ONCE A MONTH FOR CLUSTER HEADACHES MAXIMUM DAILY DOSE = 3 INJECT 3 SYRINGES UNDER THE SKIN ONCE A MONTH FOR CLUSTER HEADACHES MAXIMUM DAILY DOSE = 3 SOLD: 03/20/2020 [facility] 300 mg/3 mL (100 mg/mL x 3) 12/28/2019 12:00:00 AM EDT syrin ge 3 INJECT 3 SYRINGES UNDER THE SKIN ONCE A MONTH FOR CLUSTER HEADACHES MAXIMUM DAILY DOSE = 3 INJECT 3 SYRINGES UNDER THE SKIN ONCE A MONTH FOR CLUSTER HEADACHES MAXIMUM DAILY DOSE = 3 SOLD: 02/18/2020 [facility] 4.5 mg 12/25/2019 12:00:00 AM EDT capsule 30 TAKE ONE CAPSULE BY MOUTH EVERY DAY TAKE ONE CAPSULE BY MOUTH EVERY DAY SOLD: 06/16/2020 [facility] 4.5 mg 12/25/2019 12:00:00 AM EDT capsule 30 TAKE ONE CAPSULE BY MOUTH EVERY DAY TAKE ONE CAPSULE BY MOUTH EVERY DAY SOLD: 05/13/2020 [facility] 4.5 mg 12/25/2019 12:00:00 AM EDT capsule 30 TAKE ONE CAPSULE BY MOUTH EVERY DAY TAKE ONE CAPSULE BY MOUTH EVERY DAY SOLD: 03/20/2020 [facility] 4.5 mg 12/25/2019 12:00:00 AM EDT capsule 30 TAKE ONE CAPSULE BY MOUTH EVERY DAY TAKE ONE CAPSULE BY MOUTH EVERY DAY SOLD: 02/18/2020 [facility] 4.5 mg 12/25/2019 12:00:00 AM EDT capsule 30 TAKE ONE CAPSULE BY MOUTH EVERY DAY TAKE ONE CAPSULE BY MOUTH EVERY DAY SOLD: 01/05/2020 [facility] 4.5 mg 12/25/2019 12:00:00 AM EDT capsule 30 TAKE ONE CAPSULE BY MOUTH EVERY DAY TAKE ONE CAPSULE BY MOUTH EVERY DAY SOLD: 04/11/2020 [facility] 1 mg 12/24/2019 12:00:00 AM EDT tablet 90 TAKE ONE TABLET BY MOUTH THREE TIMES A DAY MAXIMUM DAILY DOSE = 3 TABLETS TAKE ONE TABLET BY MOUTH THREE TIMES A DAY MAXIMUM DAILY DOSE = 3 TABLETS SOLD: 12/24/2019 [facility] 150 mg 12/13/2019 12:00:00 AM EDT capsule 20 TAKE ONE CAPSULE BY MOUTH TWICE A DAY FOR MOOD TAKE ONE CAPSULE BY MOUTH TWICE A DAY FOR MOOD SOLD: 020 [facility] 100 mg 12/12/2019 12:00:00 AM EDT tablet 20 TAKE ONE TABLET BY MOUTH EVERY DAY FOR MOOD TAKE ONE TABLET BY MOUTH EVERY DAY FOR MOOD SOLD: 01/05/2020 [facility] 10 mg 12/12/2019 12:00:00 AM EDT tablet 20 TAKE ONE TABLET BY MOUTH EVERY DAY FOR MOOD TAKE ONE TABLET BY MOUTH EVERY DAY FOR MOOD SOLD: 12/14/2019 [facility] 0.4 mg 12/12/2019 12:00:00 AM EDT capsule 20 TAKE ONE CAPSULE BY MOUTH EVERY DAY FOR BPH TAKE ONE CAPSULE BY MOUTH EVERY DAY FOR BPH SOLD: 04/11/2020 [facility] 100 mg 12/12/2019 12:00:00 AM EDT tablet 20 TAKE ONE TABLET BY MOUTH EVERY DAY FOR MOOD TAKE ONE TABLET BY MOUTH EVERY DAY FOR MOOD SOLD: 12/14/2019 [facility] 10 mg 12/12/2019 12:00:00 AM EDT tablet 20 TAKE ONE TABLET BY MOUTH EVERY DAY FOR MOOD TAKE ONE TABLET BY MOUTH EVERY DAY FOR MOOD SOLD: 01/05/2020 [facility] 0.4 mg 12/12/2019 12:00:00 AM EDT capsule 20 TAKE ONE CAPSULE BY MOUTH EVERY DAY FOR BPH TAKE ONE CAPSULE BY MOUTH EVERY DAY FOR BPH SOLD: 12/21/2019 [facility] Verapamil hydrochloride 120 MG Oral Tablet VERAPAMIL HCL 12/11/2019 12:00:00 AM EDT tablet 120 TAKE ONE TABLET BY MOUTH FOU R TIMES A DAY TAKE ONE TABLET BY MOUTH FOUR TIMES A DAY SOLD: 12/21/2019 [facility] 150 mg 12/09/2019 12:00:00 AM EDT tablet 90 TAKE ONE TABLET BY MOUTH EVERY DAY TAKE ONE TABLET BY MOUTH EVERY DAY SOLD: 12/21/2019 [facility] 1 mg 11/25/2019 12:00:00 AM EDT tablet 90 TAKE ONE TABLET BY MOUTH THREE TIMES A DAY MAXIMUM DAILY DOSE = 3 TABLETS TAKE ONE TABLET BY MOUTH THREE TIMES A DAY MAXIMUM DAILY DOSE = 3 TABLETS SOLD: 11/25/2019 [facility] 20 mg 11/23/2019 12:00:00 AM EDT tablet 30 TAKE ONE TABLET BY MOUTH EVERY DAY TAKE ONE TABLET BY MOUTH EVERY DAY SOLD: 11/25/2019 [facility] Verapamil hydrochloride 120 MG Oral Tablet VERAPAMIL HCL 11/15/2019 12:00:00 AM EDT tablet 120 TAKE ONE TABLET BY MOUTH FOU R TIMES A DAY TAKE ONE TABLET BY MOUTH FOUR TIMES A DAY SOLD: 11/15/2019 [facility] 25 mg 10/26/2019 12:00:00 AM EDT tablet 60 TAKE TWO TABLETS BY MOUTH EVERY DAY TAKE TWO TABLETS BY MOUTH EVERY DAY SOLD: 11/25/2019 [facility] Paroxetine Hydrochloride 40 MG Oral Tablet PAROXETINE HCL 08/01/2019 12:00:00 AM EDT tablet 30 TAKE ONE TABLET BY MOUTH TAKE ONE TABLET BY MOUTH EVERY DAY SOLD: 11/25/2019 [facility] 75 mcg 07/20/2019 12:00:00 AM EDT tablet 30 TAKE 1 TABLET BY MOUTH ONCE DAILY IN THE MORNING ON AN EMPTY STOMACH TAKE 1 TABLET BY MOUTH ONCE DAILY IN THE MORNING ON AN EMPTY STOMACH SOLD: 11/25/2019 [facility] 75 mcg 07/18/2019 12:00:00 AM EDT tablet 30 TAKE ONE TABLET BY MOUTH EVERY MORNING ON EMPTY STOMACH TAKE ONE TABLET BY MOUTH EVERY MORNING O N EMPTY STOMACH SOLD: 05/13/2020 [facility] 75 mcg 07/18/2019 12:00:00 AM EDT tablet 30 TAKE ONE TABLET BY MOUTH EVERY MORNING ON EMPTY STOMACH TAKE ONE TABLET BY MOUTH EVERY MORNING O N EMPTY STOMACH SOLD: 04/11/2020 [facility] 6 mg/0.5 mL 07/17/2019 12:00:00 AM EDT pen injector 3 INJECT 0.5ML UNDER THE SKIN AT ONSET OF CLUSTER HEADACHES MAY REPEAT ONCE AFTER 2 HOURS INJECT 0.5ML UNDER THE SKIN AT ONSET OF CLUSTER HEADACHES MAY REPEAT ONCE AFTER 2 HOURS SOLD: 12/21/2019 [facility] 150 mg 06/13/2019 12:00:00 AM EDT tablet 30 TAKE 1 TABLET BY MOUTH ONCE DAILY TAKE 1 TABLET BY MOUTH ONCE DAILY SOLD: 11/15/2019 [facility] 150 mg 06/13/2019 12:00:00 AM EDT tablet 30 TAKE 1 TABLET BY MOUTH ONCE DAILY TAKE 1 TABLET BY MOUTH ONCE DAILY SOLD: 05/13/2020 [facility] 150 mg 06/13/2019 12:00:00 AM EDT tablet 30 TAKE 1 TABLET BY MOUTH ONCE DAILY TAKE 1 TABLET BY MOUTH ONCE DAILY SOLD: 04/11/2020 [facility] Insurance Providers Payer name Policy type / Coverage type Policy ID Covered constitution party ID Covered constitution party's relationship to mckinney Policy [place] Plan Information MEDICARE [id number] SP [id number] A MEDICARE [id number] SP [id number] A MEDICARE [id number] SP [id number] A [facility] [id number] S [id number] [place] [id number] S [id number] [facility] MEDICARE DIVISION [id number] S [id number] [place]IC[place] [id number] S [id number] MEDICAID [id number] SP [id number] MEDICAID [id number] SP [id number] [facility] [id number] [id number] [facility] [id number] SP [id number] MEDICARE [id number] SP [id number] [employer] [id number] S [id number] MEDICAID PROF FEES [id number] MEDICAID [id number] S [id number] [id number] S [id number] MEDICAID PROF FEES [id number] S [id number] [id number] S [id number] MEDICARE [id number] S [id number] [id number] MEDICAID [id number] S [id number] Medicaid P UNAVAILABLE S UNA[place]ILA BLE MEDICAID [id number] SP [id number] [facility] Secure Horizons P [id number] S [id number] [facility] [id number] SP [id number] MEDICAID [id number] S [id number] [facility] [id number] S [id number] MEDICARE [id number] SP [id number] A [facility] [id number] SP [id number] MEDICARE [id number] SP [id number] [facility] [id number] S [id number] MEDICAID [id number] S [id number] [facility] MEDICARE DIVISION [id number] S [id number] [place]IC[place] [id number] S [id number] [facility] MEDICARE DIVISION [id number] S [id number] [place]ICARE [place] [id number] S [id number] Medicare S [id number] S [id number] ANSI-Medicaid [id number] ANSI-Not a Secondary Insurance [id number] ANSI-Not a Secondary Insurance [id number] ANSI-Medicaid [id number] ANSI-Medicaid [id number] ANSI-Medicare Part B [id number] ANSI-Medicaid [id number] MEDICAID [id number] S [id number] ANSI-Medicaid [id number] ANSI-Medicaid [id number] ANSI-Medicare Part B [id number] MEDICAID [id number] S [id number] Medicaid Medicaid [id number] S f [id number] Medicare Medicare Primary [id number] Self [id number] ANSI-Medicare Part B [id number] ANSI-Medicaid [id number] MEDICAID UNAVAILABLE S UNAVAILA BLE ANSI-Medicare Part B [id number] ANSI-Medicaid [id number] ANSI-Medicare Part B [id number] ANSI-Medicaid [id number] Medicaid Medicaid [id number] S elf [id number] Medicare Medicare Primary [id number] Self [id number] ANSI-Medicaid [id number] ANSI-Medicare Part B [id number] ANSI-Medicaid [id number] ANSI-Medicare Part B [id number] ANSI-Medicaid [id number] ANSI-Medicare Part B [id number] ANSI-Medicare Part B [id number] [facility] [id number] ANSI-Medicare Part B [id number] ANSI-Medicaid [id number] ANSI-Medicaid [id number] ANSI-Medicare Part B [id number] ANSI-Medicaid [id number] ANSI-Medicare Part B [id number] ANSI-Medicare Part B [id number] ANSI-Medicaid [id number] ANSI-Medicare Part B [id number] ANSI-Medicaid [id number] Medicaid Medigap Part B [id number] 5.0 Self [id number] Medicare (Part B) Medicare Primary [id number] Self 0 [id number] MEDICAID [id number] S [id number] MEDICARE C [id number] S [id number] A Medicaid Medigap Part B [id number] 5.0 Self [id number] Medicare (Part B) Medicare Primary [id number] Self 0 [id number] Medicaid Medicaid [id number] S elf [id number] Medicare Medicare Primary [id number] Self [id number] MEDICARE [id number] SP [id number] A MEDICARE PART A-CLINIC [id number] 18 [id number] MEDICAID - CLINIC [id number] MEDICARE PART B-CLINIC [id number] MEDICARE COMPLETE [id number] SP [id number] [id number] [id number] MED[facility] [id number] SP [id number] [facility] [id number] SP [id number] MEDICAID [id number] S [id number] [facility] MEDICARE [id number] S [id number] MEDICARE [id number] S [id number] [facility] MEDICARE [id number] Unemployed [id number] MEDICAID [id number] Unemployed [id number] Problems, Conditions, and Diagnoses Code Display Name Description Problem Type Effective Dates Data Source(s) N40.0 Benign prostatic hyperplasia without low er urinary tract symptoms BENIGN PROSTATIC HYPERPLASIA WITHOUT LOWER URINRY TRACT SYMP [facility], unspecified HYPOTHYROIDISM, UNSPECIFIE D Diagnosis 07/05/2020 08:07:00 PM [facility] 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, hypnotic, or anxiolytic use, u nspecified, uncomplicated SEDATIVE, HYPNOTIC, OR ANXIOLYTIC USE, UNSP, UNCOMPLICATED Diagnosis 07/05/2020 08:07:00 PM [facility] F41.9 Anxiety disorder, unspecified ANXIETY DISORDER, UNSPEC IFIED Diagnosis 07/05/2020 08:07:00 PM [facility] F31.9 Bipolar disorder, unspecified BIPOLAR DISORDER, UNSPEC IFIED Diagnosis 07/05/2020 08:07:00 PM [facility] G40.909 Epilepsy, unspecified, not intractable, without status epilepticus EPILEPSY, UNSP, NOT INTRACTABLE, WITHOUT STATUS EPILEPTICUS Diagnosis 07/05/2020 08:07:00 PM [facility] I10 Essential (primary) hypertension ESSENTIAL (PRIMARY) H YPERTENSION Diagnosis 07/05/2020 08:07:00 PM [facility] F17.210 Nicotine dependence, cigarettes, uncompl icated NICOTINE DEPENDENCE, CIGARETTES, UNCOMPLICATED Diagnosis 07/05/2020 08:07:00 PM [facility] U07.1 COVID-19 COVID-19 Diagnosis 07/05/2020 08:07:00 PM ED [facility] F10.239 Alcohol dependence with withdrawal, unsp ecified ALCOHOL DEPENDENCE WITH WITHDRAWAL, UNSPECIFIED Diagnosis 07/05/2020 08:07:00 PM EDT [facility] U07.1 COVID-19 COVID-19 Diagnosis 07/05/2020 02:31:[address] [facility] F10.139 ALCOHOL ABUSE WITH WITHDRAWAL, UNSPECIFI ED ALCOHOL ABUSE WITH WITHDRAWAL, UNSPECIFIED Diagnosis 07/05/2020 02:31:00 PM [facility] R07.9 Chest pain, unspecified CHEST PAIN, UNSPECIFIED Diagno sis 01/24/2020 10:00:00 AM [facility] I51.7 Cardiomegaly CARDIOMEGALY Diagnosis 01/24/2020 10:00:00 A M [facility] F60.3 Borderline personality disorder BORDERLINE PERSONALITY DISORDER Diagnosis 01/24/2020 10:00:00 AM [facility] F40.00 Agoraphobia, unspecified AGORAPHOBIA, UNSPECIFIED Diag nosis 01/24/2020 10:00:00 AM [facility] F41.1 Generalized anxiety disorder GENERALIZED ANXIETY DISOR MESFIN Diagnosis 01/24/2020 10:00:00 AM [facility] F42.9 Obsessive-compulsive disorder, unspecifi ed OBSESSIVE-COMPULSIVE DISORDER, UNSPECIFIED Diagnosis 01/24/2020 10:00:00 AM [facility] L21.9 Seborrheic dermatitis, unspecified SEBORRHEIC DE RMATITIS, UNSPECIFIED Diagnosis 01/24/2020 10:00:00 AM [facility] G44.009 Cluster headache syndrome, unspecified, not intractable CLUSTER HEADACHE SYNDROME, UNSPECIFIED, NOT INTRACTABLE Diagnosis 01/24/2020 10:00:00 A [facility] F13.20 Sedative, hypnotic or anxiolytic depende nce, uncomplicated SEDATIVE, HYPNOTIC OR ANXIOLYTIC DEPENDENCE, UNCOMPLICATED Diagnosis 01/23 10:00:00 AM [facility] F11.20 Opioid dependence, uncomplicated OPIOID DEPENDEN CE, UNCOMPLICATED Diagnosis 01/24/2020 10:00:00 AM [facility] F10.20 Alcohol dependence, uncomplicated ALCOHOL DEPEND ENCE, UNCOMPLICATED Diagnosis 01/24/2020 10:00:00 AM [facility] F31.9 Bipolar disorder, unspecified BIPOLAR DISORDER, UNSPEC IFIED Diagnosis 01/14/2020 10:15:00 AM [facility] F13.10 Sedative, hypnotic or anxiolytic abuse, uncomplicated SEDATIVE, HYPNOTIC OR ANXIOLYTIC ABUSE, UNCOMPLICATED Diagnosis 01/14/2020 10:15:[address] [facility] Z60.8 Other problems related to social environ ment OTHER PROBLEMS RELATED TO SOCIAL ENVIRONMENT Diagnosis 01/14/2020 10:15:00 AM [facility]hma L30.9 Dermatitis, unspecified DERMATITIS, UNSPECIFIED Diagno sis 01/14/2020 10:15:00 AM [facility] F17.210 Nicotine dependence, cigarettes, uncompl icated NICOTINE DEPENDENCE, CIGARETTES, UNCOMPLICATED Diagnosis 01/14/2020 10:15:00 AM [facility] I10 Essential (primary) hypertension ESSENTIAL (PRIMARY) H YPERTENSION Diagnosis 01/14/2020 10:15:00 AM [facility] N40.0 Benign prostatic hyperplasia without low er urinary tract symptoms BENIGN PROSTATIC HYPERPLASIA WITHOUT LOWER URINRY TRACT SYMP Diagnosis 01/14/2020 10:15:00 AM [facility] G44.009 Cluster headache syndrome, unspecified, not intractable CLUSTER HEADACHE SYNDROME, UNSPECIFIED, NOT INTRACTABLE Diagnosis 01/14/2020 10:15:00 A M [facility] E03.9 Hypothyroidism, unspecified HYPOTHYROIDISM, UNSPECIFIE D Diagnosis 01/14/2020 10:15:00 AM [facility] F10.230 Alcohol dependence with withdrawal, unco mplicated ALCOHOL DEPENDENCE WITH WITHDRAWAL, UNCOMPLICATED Diagnosis 01/14/2020 10:15:00 AM [facility] R07.9 Chest pain, unspecified CHEST PAIN, UNSPECIFIED Diagno sis 12/03/2019 10:58:00 PM [facility] F10.20 Alcohol dependence, uncomplicated ALCOHOL DEPEND ENCE, UNCOMPLICATED Diagnosis 12/03/2019 10:58:00 PM [facility] F12.10 Cannabis abuse, uncomplicated CANNABIS ABUSE, UNCOMPLI CATED Diagnosis 12/03/2019 10:58:00 PM [facility] F17.200 Nicotine dependence, unspecified, uncomp licated NICOTINE DEPENDENCE, UNSPECIFIED, UNCOMPLICATED Diagnosis 12/03/2019 10:58:00 PM [facility] E03.9 Hypothyroidism, unspecified HYPOTHYROIDISM, UNSPECIFIE D Diagnosis 12/03/2019 10:58:00 PM [facility] I10 Essential (primary) hypertension ESSENTIAL (PRIMARY) H YPERTENSION Diagnosis 12/03/2019 10:58:00 PM [facility] K21.9 Gastro-esophageal reflux disease without esophagitis GASTRO-ESOPHAGEAL REFLUX DISEASE WITHOUT ESOPHAGIT Diagnosis 12/03/2019 10:58:00 PM [facility] E78.5 Hyperlipidemia, unspecified HYPERLIPIDEMIA, UNSPECIFIE D Diagnosis 12/03/2019 10:58:00 PM [facility] N40.0 Benign prostatic hyperplasia without low er urinary tract symptoms BENIGN PROSTATIC HYPERPLASIA WITHOUT LOWER URINRY Diagnosis 12/03/2019 10:58: 00 PM [facility] G44.009 Cluster headache syndrome, unspecified, not intractable CLUSTER HEADACHE SYNDROME, UNSPECIFIED, NOT INTRAC Diagnosis 12/03/2019 10:58:00 PM [facility] Z91.5 Personal history of self-harm PERSONAL HISTORY OF SELF -HARM Diagnosis 12/03/2019 10:58:00 PM [facility] F32.9 Major depressive disorder, single episod e, unspecified MAJOR DEPRESSIVE DISORDER, SINGLE EPISOD Diagnosis 12/03/2019 10:58:00 PM [facility] F31.9 Bipolar disorder, unspecified BIPOLAR DISORDER, UNSPEC IFIED Diagnosis 12/03/2019 10:58:00 PM [facility] Z12.5 Screening for malignant neoplasm of prostate Pro state cancer screening Problem 06/03/2020 12:00:00 AM EDT eCW[facility] F10.21 [id number] Alcohol dependence in remission Problem 02/21/2020 12:00:00 AM EST eCW1 ([facility]) N40.0 Benign prostatic hypertrophy without out flow obstruction Benign prostatic hyperplasia without lower urinary tract symptoms Problem 02/20 12:00:00 AM EST eCW1 ([facility]) F11.21 Opioid dependence in remission Opioid dependence in re mission Problem 02/21/2020 12:00:00 AM EST eCW1 ([facility]) Surgeries/Procedures Procedure Description Date Indications Data Source(s) [facility] CARE/DAY 25 MINUTES 12/03/2020 12:00:00 AM EDT [facility] ([facility]) CRITICAL CARE ILL/INJURED PATIENT INIT 30-74 MIN 12/02 12:00:00 AM EDT [facility] ([facility]) Ultrasound Guidance For Vascular Access Requiring Ultrasound Eval 12/02/2020 12:00:00 AM EDT [facility] ([facility]) Insertion Of Non-Tunneled Centrally Inserted Central Venous Kriss 12/02/2020 12:00:00 AM EDT [facility] ([facility], ) INSJ/RPLCMT TEMP TRANSVNS 1CHMBR ELTRD/PM CATH 021 12:00:00 AM EDT [facility] ([facility], ) CRITICAL CARE ILL/INJURED PATIENT INIT 30-74 MIN 12/01 12:00:00 AM EDT [facility] ([facility], ) BLOOD COUNT COMPLETE AUTO&AUTO DIFRNTL WBC COUNT COMPLETE CB C W/AUTO DIFF WBC 07/05[facility]2020 [facility] HIGH SEVERITY&THREAT FUNCJ EMERGENCY DE PT VISIT 07/05/2020 12:00:00 AM [facility] COMPREHENSIVE METABOLIC PANEL COMPREHEN METABOLIC PANEL 06/19 [facility]/TABLET RGNT AUTO W/O MICROSCOPY URINALYSIS A UTO W/O SCOPE 07/05/2020 12:00:00 AM [facility] TROPONIN QUANTITATIVE ASSAY OF TROPONIN QUANT 07/05/2020 12:00:00 A M [facility] [address] SARS-COV-2 COVID-19 AMP PRB 07/05/2020 [facility] [address] ANALGESICS NON-OPIOID 1 OR 2 07/05/2020 12:00:[address] [facility] G0480 07/05/2020 12:00:00 AM EDT [facility] ECG ROUTINE ECG W/LEAST 12 LDS TRCG ONLY W/O I&R ELECTROCARD IOGRAM TRACING 07/05/2020 12:00:00 AM [facility] MAGNESIUM ASSAY OF MAGNESIUM 07/05/2020 12:00:00 AM [facility] 66325 X-RAY EXAM CHEST 1 VIEW 07/05/2020 12:00:00 AM [facility] 30555 DRUG TEST PRSMV DIR OPT OBS 07/05/2020 12:00:00 AM [facility] Group Counseling for Substance Abuse Treatment, Cognit adriana-Behavioral GROUP CHANNEL MACHINE OPERATOR FOR SUBSTANCE ABUSE, COGNITIVE BEHAVIORAL 01/25/2020 12:00:00 AM [facility] Group Counseling for Substance Abuse Treatment, Spirit ual GROUP COUNSELING FOR SUBSTANCE ABUSE TREATMENT, SPIRITUAL 01/25/2020 12:00:00 AM [facility] Group Counseling for Substance Abuse Treatment, Motiva tional Enhancement GROUP CHANNEL MACHINE OPERATOR FOR SUBSTANCE ABUSE, MOTIVATIONAL ENHANCE 01/25/2020 12:00:00 AM [facility] Individual Counseling for Substance Abuse Treatment, C ognitive-Behavioral INDIV CHANNEL MACHINE OPERATOR FOR SUBSTANCE ABUSE, COGNITIVE BEHAVIORAL 01/25/2020 12:00:00 AM [facility] Measurement of Cardiac Rhythm, External Approach MEASU REMENT OF CARDIAC RHYTHM, EXTERNAL APPROACH 01/25/2020 12:00:00 AM [facility] Detoxification Services for Substance Abuse Treatment DETOXIFICATION SERVICES FOR SUBSTANCE ABUSE TREATMENT 01/16/2020 12:00:00 AM [facility] Individual Counseling for Substance Abuse Treatment, C ontinuing Care INDIV CHANNEL MACHINE OPERATOR FOR SUBSTANCE ABUSE TREATMENT, CONTINUING CARE 01/16/2020 12:00:00 AM [facility] Psychological Tests, Neurobehavioral and Cognitive Status 12/04/2019 12:00:00 AM [facility] Results ID Date Data Source [id number] 12/01/2020 09:24:00 PM EDT [facility] Name Value Range Interpretation Code Description Data Lise rce(s) Supporting Document(s) SARS coronavirus 2 RNA [Presence] in Res piratory specimen by DANA with probe detection NEGATIVE [facility] This lab was ordered by [facility] a nd reported by [facility]. ID Date Data Source [id number] 10/26/2020 11:16:00 PM EDT [facility] Name Value Range Interpretation Code Description Data Lise rce(s) Supporting Document(s) SARS-CoV-2 (COVID 19) NEGATIVE - SARS-CoV-2 (COVID19) [facility] This lab was ordered by [facility] a nd reported by [facility]. ID Date Data Source [id number] 07/09/2020 09:00:[address] [facility] Name Value Range Interpretation Code Description Data Lise rce(s) Supporting Document(s) White Blood Count 4.8-10.8 Normal (applies to non-numeri c results) [facility] Red Blood Count 4.35-6.08 Normal (applies to non-numeric results) [facility] Hemoglobin 13.0-17.5 Normal (applies to non-numeric resul ts) [facility] Hematocrit 37.7-51.0 Normal (applies to non-numeric resul ts) [facility] Mean Corpuscular Volume 80-94 Normal (applies to non- numeric results) [facility] Mean Corpuscular Hemoglobin 27.0-33.0 Normal (appli es to non-numeric results) [facility] Mean Corpuscular HGB Conc 32.0-36.0 Normal (applies to no n-numeric results) [facility] Red Cell Distribution Width 11.5-14.5 Normal (appli es to non-numeric results) [facility] Platelet Count 213 X10 3/uL 130-450 Normal (applies to non-numeric results) [facility] Mean Platelet Volume 9.6-13.1 Normal (applies to non-num wagner results) [facility] Imm Grans% (AUTO) 1 % 0-2 Normal (applies to non-numeri c results) [facility] Neutrophils % (AUTO) 57 % 40-75 Normal (applies to non-num wagner results) [facility] Lymphocytes % (AUTO) 30 % 21-46 Normal (applies to non-num wagner results) [facility] Monocytes % (AUTO) 8 % 5-12 Normal (applies to non-numer ic results) [facility] Eosinophils % (AUTO) 3 % 1-5 Normal (applies to non-num wagner results) [facility] Basophils % (AUTO) 1 % 0-1 Normal (applies to non-numer ic results) [facility] Imm Grans# (AUTO) 0.0-0.5 Normal (applies to non-numeri c results) [facility] Neutrophils # (AUTO) 1.5-8.1 Normal (applies to non-num wagner results) [facility] Lymphocytes # (AUTO) 1.0-3.1 Normal (applies to non-num wagner results) [facility] Monocytes # (AUTO) 0.2-1.3 Normal (applies to non-numer ic results) [facility] Eosinophils# (AUTO) 0.0-0.5 Normal (applies to non-nume milan results) [facility] Basophils # (AUTO) 0.0-0.1 Normal (applies to non-numer ic results) [facility] ID Date Data Source [id number] 07/09/2020 09:23:00 AM EDT [facility] Name Value Range Interpretation Code Description Data Lise rce(s) Supporting Document(s) Sodium 141 mmol/L 137-145 Normal (applies to non-numeric resul ts) [facility] Potassium 3.5-5.1 Normal (applies to non-numeric resul ts) [facility] Chloride 111 mmol/L 98-112 Normal (applies to non-numeric resul ts) [facility] Carbon Dioxide CO2 22.0-33.0 Normal (applies to non-numer ic results) [facility] Anion Gap 4.0-11.0 Below low normal [facility] BUN 14 mg/dL 9-20 Normal (applies to non-numeric resul ts) [facility] Creatinine 0.80-1.50 Below low normal [facility] GFR >60 Normal (applies to non-numeric results) [facility] Result based on MDRD formula. Glucose Level 113 mg/dL 74-99 Above high normal [facility] The reference range is only applicable w hen fasting. Calcium-Uncorrected 8.4-10.2 Normal (applies to non-nume milan results) [facility] Corrected Calcium 8.4-10.2 Normal (applies to non-numeri c results) [facility] Bilirubin,Total 0.2-1.3 Normal (applies to non-numeric results) [facility] SGOT(AST) 14 U/L 17-59 Below low normal [facility] SGPT(ALT) 81 U/L 21-72 Above high normal [facility] Alkaline Phosphatase 75 U/L 38-126 Normal (applies to non-num wagner results) [facility] can increase Alkaline Phosp le vels up to 2 times the normal adult value. Normal values for children and adolescents are 2 to 3 times the normal adult value. Total Protein 6.3-8.2 Normal (applies to non-numeric re sults) [facility] Albumin 3.5-5.0 Normal (applies to non-numeric resul ts) [facility] ID Date Data Source [id number] 07/09/2020 09:23:00 AM EDT [facility] Name Value Range Interpretation Code Description Data Lise rce(s) Supporting Document(s) C-Reactive Protein,Wide Range <3.00 Normal (applies t o non-numeric results) [facility] ID Date Data Source [id number] 07/08/2020 01:53:00 PM EDT [facility] Name Value Range Interpretation Code Description Data Lise rce(s) Supporting Document(s) White Blood Count 4.8-10.8 Above high normal [facility] Red Blood Count 4.35-6.08 Normal (applies to non-numeric results) [facility] Hemoglobin 13.0-17.5 Normal (applies to non-numeric resul ts) [facility] Hematocrit 37.7-51.0 Normal (applies to non-numeric resul ts) [facility] Mean Corpuscular Volume 80-94 Normal (applies to non- numeric results) [facility] Mean Corpuscular Hemoglobin 27.0-33.0 Normal (appli es to non-numeric results) [facility] Mean Corpuscular HGB Conc 32.0-36.0 Normal (applies to no n-numeric results) [facility] Red Cell Distribution Width 11.5-14.5 Normal (appli es to non-numeric results) [facility] Platelet Count 205 X10 3/uL 130-450 Normal (applies to non-numeric results) [facility] Mean Platelet Volume 9.6-13.1 Normal (applies to non-num wagner results) [facility] Imm Grans% (AUTO) 1 % 0-2 Normal (applies to non-numeri c results) [facility] Neutrophils % (AUTO) 78 % 40-75 Above high normal [facility] Lymphocytes % (AUTO) 15 % 21-46 Below low normal [facility] Monocytes % (AUTO) 5 % 5-12 Normal (applies to non-numer ic results) [facility] Eosinophils % (AUTO) 1 % 1-5 Normal (applies to non-num wagner results) [facility] Basophils % (AUTO) 0 % 0-1 Normal (applies to non-numer ic results) [facility] Imm Grans# (AUTO) 0.0-0.5 Normal (applies to non-numeri c results) [facility] Neutrophils # (AUTO) 1.5-8.1 Above high normal [facility] Lymphocytes # (AUTO) 1.0-3.1 Normal (applies to non-num wagner results) [facility] Monocytes # (AUTO) 0.2-1.3 Normal (applies to non-numer ic results) [facility] Eosinophils# (AUTO) 0.0-0.5 Normal (applies to non-nume milan results) [facility] Basophils # (AUTO) 0.0-0.1 Normal (applies to non-numer ic results) [facility] ID Date Data Source [id number] 07/08/2020 10:17:00 AM EDT [facility] Name Value Range Interpretation Code Description Data Lise rce(s) Supporting Document(s) Sodium 141 mmol/L 137-145 Normal (applies to non-numeric resul ts) [facility] Potassium 3.5-5.1 Normal (applies to non-numeric resul ts) [facility] Chloride 109 mmol/L 98-112 Normal (applies to non-numeric resul ts) [facility] Carbon Dioxide CO2 22.0-33.0 Normal (applies to non-numer ic results) [facility] Anion Gap 4.0-11.0 Normal (applies to non-numeric resul ts) [facility] BUN 12 mg/dL 9-20 Normal (applies to non-numeric resul ts) [facility] Creatinine 0.80-1.50 Below low normal [facility] GFR >60 Normal (applies to non-numeric results) [facility] Result based on MDRD formula. Glucose Level 78 mg/dL 74-99 Normal (applies to non-numeric re sults) [facility] The reference range is only applicable w hen fasting. Calcium-Uncorrected 8.4-10.2 Normal (applies to non-nume milan results) [facility] Corrected Calcium 8.4-10.2 Normal (applies to non-numeri c results) [facility] Bilirubin,Total 0.2-1.3 Normal (applies to non-numeric results) [facility] SGOT(AST) 15 U/L 17-59 Below low normal [facility] SGPT(ALT) 91 U/L 21-72 Above high normal [facility] Alkaline Phosphatase 71 U/L 38-126 Normal (applies to non-num wagner results) [facility] can increase Alkaline Phosp le vels up to 2 times the normal adult value. Normal values for children and adolescents are 2 to 3 times the normal adult value. Total Protein 6.3-8.2 Normal (applies to non-numeric re sults) [facility] Albumin 3.5-5.0 Normal (applies to non-numeric resul ts) [facility] ID Date Data Source [id number] 07/08/2020 10:17:00 AM EDT [facility] Name Value Range Interpretation Code Description Data Lise rce(s) Supporting Document(s) Magnesium 1.80-2.40 Normal (applies to non-numeric resul ts) [facility] ID Date Data Source [id number] 07/08/2020 10:17:00 AM EDT [facility] Name Value Range Interpretation Code Description Data Lise rce(s) Supporting Document(s) C-Reactive Protein,Wide Range <3.00 Normal (applies t o non-numeric results) [facility] ID Date Data Source [id number] 07/07/2020 08:30:00 AM EDT [facility] Name Value Range Interpretation Code Description Data Lise rce(s) Supporting Document(s) White Blood Count 4.8-10.8 Normal (applies to non-numeri c results) [facility] Red Blood Count 4.35-6.08 Normal (applies to non-numeric results) [facility] Hemoglobin 13.0-17.5 Normal (applies to non-numeric resul ts) [facility] Hematocrit 37.7-51.0 Normal (applies to non-numeric resul ts) [facility] Mean Corpuscular Volume 80-94 Normal (applies to non- numeric results) [facility] Mean Corpuscular Hemoglobin 27.0-33.0 Normal (appli es to non-numeric results) [facility] Mean Corpuscular HGB Conc 32.0-36.0 Normal (applies to no n-numeric results) [facility] Red Cell Distribution Width 11.5-14.5 Normal (appli es to non-numeric results) [facility] Platelet Count 205 X10 3/uL 130-450 Normal (applies to non-numeric results) [facility] Mean Platelet Volume 9.6-13.1 Normal (applies to non-num wagner results) [facility] Imm Grans% (AUTO) 1 % 0-2 Normal (applies to non-numeri c results) [facility] Neutrophils % (AUTO) 55 % 40-75 Normal (applies to non-num wagner results) [facility] Lymphocytes % (AUTO) 35 % 21-46 Normal (applies to non-num wagner results) [facility] Monocytes % (AUTO) 7 % 5-12 Normal (applies to non-numer ic results) [facility] Eosinophils % (AUTO) 2 % 1-5 Normal (applies to non-num wagner results) [facility] Basophils % (AUTO) 1 % 0-1 Normal (applies to non-numer ic results) [facility] Imm Grans# (AUTO) 0.0-0.5 Normal (applies to non-numeri c results) [facility] Neutrophils # (AUTO) 1.5-8.1 Normal (applies to non-num wagner results) [facility] Lymphocytes # (AUTO) 1.0-3.1 Normal (applies to non-num wagner results) [facility] Monocytes # (AUTO) 0.2-1.3 Normal (applies to non-numer ic results) [facility] Eosinophils# (AUTO) 0.0-0.5 Normal (applies to non-nume milan results) [facility] Basophils # (AUTO) 0.0-0.1 Normal (applies to non-numer ic results) [facility] ID Date Data Source [id number] 07/07/2020 09:00:00 AM EDT [facility] Name Value Range Interpretation Code Description Data Lise rce(s) Supporting Document(s) Sodium 140 mmol/L 137-145 Normal (applies to non-numeric resul ts) [facility] Potassium 3.5-5.1 Normal (applies to non-numeric resul ts) [facility] Chloride 108 mmol/L 98-112 Normal (applies to non-numeric resul ts) [facility] Carbon Dioxide CO2 22.0-33.0 Normal (applies to non-numer ic results) [facility] Anion Gap 4.0-11.0 Normal (applies to non-numeric resul ts) [facility] BUN 13 mg/dL 9-20 Normal (applies to non-numeric resul ts) [facility] Creatinine 0.80-1.50 Below low normal [facility] GFR >60 Normal (applies to non-numeric results) [facility] Result based on MDRD formula. Glucose Level 78 mg/dL 74-99 Normal (applies to non-numeric re sults) [facility] The reference range is only applicable w hen fasting. Calcium-Uncorrected 8.4-10.2 Normal (applies to non-nume milan results) [facility] Corrected Calcium 8.4-10.2 Normal (applies to non-numeri c results) [facility] Bilirubin,Total 0.2-1.3 Normal (applies to non-numeric results) [facility] SGOT(AST) 30 U/L 17-59 Normal (applies to non-numeric resul ts) [facility] SGPT(ALT) 117 U/L 21-72 Above high normal [facility] Alkaline Phosphatase 73 U/L 38-126 Normal (applies to non-num wagner results) [facility] can increase Alkaline Phosp le vels up to 2 times the normal adult value. Normal values for children and adolescents are 2 to 3 times the normal adult value. Total Protein 6.3-8.2 Normal (applies to non-numeric re sults) [facility] Albumin 3.5-5.0 Normal (applies to non-numeric resul ts) [facility] ID Date Data Source [id number] 07/07/2020 09:00:[address] [facility] Value Range Interpretation Code Description Data Lise rce(s) Supporting Document(s) Magnesium 1.80-2.40 Normal (applies to non-numeric resul ts) [facility] ID Date Data Source [id number] 07/07/2020 09:00:[address] [facility] Value Range Interpretation Code Description Data Lise rce(s) Supporting Document(s) Ferritin 106 ng/mL 17.9-464.0 Normal (applies to non-numeric resul ts) [facility] ID Date Data Source [id number] 07/07/2020 09:00:[address] [facility] Value Range Interpretation Code Description Data Lise rce(s) Supporting Document(s) LDH 186 U/L 87-241 Normal (applies to non-numeric resul ts) [facility] ID Date Data Source [id number] 07/07/2020 09:00:[address] [facility] Value Range Interpretation Code Description Data Lise rce(s) Supporting Document(s) C-Reactive Protein,Wide Range <3.00 Normal (applies t o non-numeric results) [facility] ID Date Data Source [id number] 07/07/2020 08:55:[address] [facility] Value Range Interpretation Code Description Data Lise rce(s) Supporting Document(s) PT 9.4-12.5 Normal (applies to non-numeric results) [facility] INR Normal (applies to non-numeric results) [facility] The use of the INR is restricted to gene ents on stable oral anticoagulant. Therapeutic Range: 2.0-3.0 High Risk Values: 2.5-3.5 ID Date Data Source [id number] 07/07/2020 08:55:[address] [facility] Value Range Interpretation Code Description Data Lise rce(s) Supporting Document(s) PTT 25.1-36.5 Normal (applies to non-numeric resul ts) [facility] ID Date Data Source [id number] 07/07/2020 08:55:00 AM EDT [facility] Name Value Range Interpretation Code Description Data Lise rce(s) Supporting Document(s) D-Dimer Quant <500 Normal (applies to non-numeric re sults) [facility] Negative for D-Dimer. This test has f ull FDA exclusion claim at a Negative cutoff value of 500 ng/mL FEU. When the d-dimer value is used in conjunction with the clinical pretest probability (PTP) assessment model to exclude DVT and PE, results less than 500 ng/mL are negative for DVT/PE. ID Date Data Source [id number] 07/06/2020 07:11:00 AM EDT [facility] Name Value Range Interpretation Code Description Data Lise rce(s) Supporting Document(s) Sodium 141 mmol/L 137-145 Normal (applies to non-numeric resul ts) [facility] Potassium 3.5-5.1 Normal (applies to non-numeric resul ts) [facility] Chloride 109 mmol/L 98-112 Normal (applies to non-numeric resul ts) [facility] Carbon Dioxide CO2 22.0-33.0 Normal (applies to non-numer ic results) [facility] Anion Gap 4.0-11.0 Normal (applies to non-numeric resul ts) [facility] BUN 10 mg/dL 9-20 Normal (applies to non-numeric resul ts) [facility] Creatinine 0.80-1.50 Below low normal [facility] GFR >60 Normal (applies to non-numeric results) [facility] Result based on MDRD formula. Glucose Level 86 mg/dL 74-99 Normal (applies to non-numeric re sults) [facility] The reference range is only applicable w hen fasting. Calcium-Uncorrected 8.4-10.2 Normal (applies to non-nume milan results) [facility] Corrected Calcium 8.4-10.2 Normal (applies to non-numeri c results) [facility] Bilirubin,Total 0.2-1.3 Normal (applies to non-numeric results) [facility] SGOT(AST) 28 U/L 17-59 Normal (applies to non-numeric resul ts) [facility] SGPT(ALT) 108 U/L 21-72 Above high normal [facility] Alkaline Phosphatase 74 U/L 38-126 Normal (applies to non-num wagner results) [facility] can increase Alkaline Phosp le vels up to 2 times the normal adult value. Normal values for children and adolescents are 2 to 3 times the normal adult value. Total Protein 6.3-8.2 Normal (applies to non-numeric re sults) [facility] Albumin 3.5-5.0 Normal (applies to non-numeric resul ts) [facility] ID Date Data Source [id number] 07/06/2020 07:11:00 AM EDT [facility] Name Value Range Interpretation Code Description Data Lise rce(s) Supporting Document(s) Ferritin 99 ng/mL 17.9-464.0 Normal (applies to non-numeric resul ts) [facility] ID Date Data Source [id number] 07/06/2020 07:11:00 AM EDT [facility] Name Value Range Interpretation Code Description Data Lise rce(s) Supporting Document(s) LDH 169 U/L 87-241 Normal (applies to non-numeric resul ts) [facility] ID Date Data Source [id number] 07/06/2020 07:11:00 AM EDT [facility] Name Value Range Interpretation Code Description Data Lise rce(s) Supporting Document(s) C-Reactive Protein,Wide Range <3.00 Normal (applies t o non-numeric results) [facility] ID Date Data Source [id number] 07/06/2020 07:31:00 AM EDT [facility] Name Value Range Interpretation Code Description Data Lise rce(s) Supporting Document(s) PT 9.4-12.5 Normal (applies to non-numeric results) [facility] INR Normal (applies to non-numeric results) [facility] The use of the INR is restricted to gene ents on stable oral anticoagulant. Therapeutic Range: 2.0-3.0 High Risk Values: 2.5-3.5 ID Date Data Source [id number] 07/06/2020 07:31:00 AM EDT [facility] Name Value Range Interpretation Code Description Data Lise rce(s) Supporting Document(s) PTT 25.1-36.5 Normal (applies to non-numeric resul ts) [facility] ID Date Data Source [id number] 07/06/2020 07:31:00 AM EDT [facility] Name Value Range Interpretation Code Description Data Lise rce(s) Supporting Document(s) D-Dimer Quant <500 Normal (applies to non-numeric re sults) [facility] Negative for D-Dimer. This test has f ull FDA exclusion claim at a Negative cutoff value of 500 ng/mL FEU. When the d-dimer value is used in conjunction with the clinical pretest probability (PTP) assessment model to exclude DVT and PE, results less than 500 ng/mL are negative for DVT/PE. ID Date Data Source [id number] 07/06/2020 07:18:00 AM EDT [facility] Name Value Range Interpretation Code Description Data Lise rce(s) Supporting Document(s) White Blood Count 4.8-10.8 Normal (applies to non-numeri c results) [facility] Red Blood Count 4.35-6.08 Normal (applies to non-numeric results) [facility] Hemoglobin 13.0-17.5 Normal (applies to non-numeric resul ts) [facility] Hematocrit 37.7-51.0 Normal (applies to non-numeric resul ts) [facility] Mean Corpuscular Volume 80-94 Normal (applies to non- numeric results) [facility] Mean Corpuscular Hemoglobin 27.0-33.0 Normal (appli es to non-numeric results) [facility] Mean Corpuscular HGB Conc 32.0-36.0 Normal (applies to no n-numeric results) [facility] Red Cell Distribution Width 11.5-14.5 Normal (appli es to non-numeric results) [facility] Platelet Count 217 X10 3/uL 130-450 Normal (applies to non-numeric results) [facility] Mean Platelet Volume 9.6-13.1 Normal (applies to non-num wagner results) [facility] Imm Grans% (AUTO) 1 % 0-2 Normal (applies to non-numeri c results) [facility] Neutrophils % (AUTO) 58 % 40-75 Normal (applies to non-num wagner results) [facility] Lymphocytes % (AUTO) 31 % 21-46 Normal (applies to non-num wagner results) [facility] Monocytes % (AUTO) 7 % 5-12 Normal (applies to non-numer ic results) [facility] Eosinophils % (AUTO) 2 % 1-5 Normal (applies to non-num wagner results) [facility] Basophils % (AUTO) 1 % 0-1 Normal (applies to non-numer ic results) [facility] Imm Grans# (AUTO) 0.0-0.5 Normal (applies to non-numeri c results) [facility] Neutrophils # (AUTO) 1.5-8.1 Normal (applies to non-num wagner results) [facility] Lymphocytes # (AUTO) 1.0-3.1 Normal (applies to non-num wagner results) [facility] Monocytes # (AUTO) 0.2-1.3 Normal (applies to non-numer ic results) [facility] Eosinophils# (AUTO) 0.0-0.5 Normal (applies to non-nume milan results) [facility] Basophils # (AUTO) 0.0-0.1 Normal (applies to non-numer ic results) [facility] ID Date Data Source [id number] 07/05/2020 10:53:00 PM EDT [facility] Methodology: Isothermal Nucleic Aci d Amplification Reference value: Influenza A and B viral RNA not detected This result does not rule out co- infections with other pathogens or identify any specific influenza A or B virus subtype/lineage. Negative results do not preclude infection with influenza virus and should not be the sole basis of a patient treatment decision.Not detectedNot detected Name Value Range Interpretation Code Description Data Lise rce(s) Supporting Document(s) ID Date Data Source [id number] 07/05/2020 08:58:00 PM EDT [facility] Name Value Range Interpretation Code Description Data Lise rce(s) Supporting Document(s) Fibrinogen 290 mg/dL 173-454 Normal (applies to non-numeric resul ts) [facility] ID Date Data Source [id number] 07/05/2020 09:23:00 PM EDT [facility] MB if CPK is elevated? Y MB if CPK is elevated? Y Name Value Range Interpretation Code Description Data Lise rce(s) Supporting Document(s) CPK 132 U/L 39-308 Normal (applies to non-numeric resul ts) [facility] ID Date Data Source [id number] 07/05/2020 09:23:00 PM EDT [facility] MB if CPK is elevated? Y MB if CPK is elevated? Y Name Value Range Interpretation Code Description Data Lise rce(s) Supporting Document(s) B-Type Natriuretic Peptide BNP 22 pg/mL <125 N ormal (applies to non-numeric results) [facility] NT-proBNP values less than 300 pg/mL hav e a 99% negative predictive value for excluding acute congestive heart failure. A diagnostic NT-proBNP cutoff of 900 pg/mL has been suggested in adults over 50 years of age in the absence of renal failure. A cutoff of 1200 pg/mL for patients with GFR <60 yields a diagnostic sensitivity and specificity of 89% and 72% for acute congestive failure. ID Date Data Source [id number] 07/05/2020 09:20:00 PM EDT [facility] Name Value Range Interpretation Code Description Data Lise rce(s) Supporting Document(s) Troponin I 0.000-0.045 Normal (applies to non-numeric resu lts) [facility] ID Date Data Source [id number] 07/05/2020 09:36:00 PM EDT [facility] Name Value Range Interpretation Code Description Data Lise rce(s) Supporting Document(s) Procalcitonin 0.00-0.24 Normal (applies to non-numeric re sults) [facility] 1.Risk of Progression to severe sepsis a nd septic shock: < 0.50 ng/mL Low Risk of severe sepsis and/or septic shock > 2.00 ng/mL High Risk of severe sepsis and/or septic shock 2.Decision on antibiotic discontinuation for suspected or confirmed septic patients: Antibiotic therapy may be discontinued if the current PCT is <0.50 ng/mL or if there is an 80% decrease in PCT. 3.Decision for antibiotic therapy for patients with suspected or confirmed Lower Respiratory Tract Infection (LRTI): >0.25 ng/mL - Antibiotic therapy encouraged 4.Decision on antibiotic discontinuation for patients with suspected or confirmed LRTI: Antibiotic therapy may be discontinued if the current PCT is <0.25 ng/mL or if there is an 80% decrease in PCT. NOTE: Antibiotic therapy should be considered regardless of PCT result if the patient is clinically unstable, is at high risk for adverse outcome, has strong evidence of bacterial pathogen or the clinical context indicates antibiotic therapy is warranted. ID Date Data Source [id number] 07/05/2020 10:06:00 PM EDT [facility] Name Value Range Interpretation Code Description Data Lise rce(s) Supporting Document(s) BLOOD TYPE PATIENT O Positive Normal (applies to non-numer ic results) [facility] ANTIBODY SCREEN NEGATIVE Normal (applies to non-numeric results) [facility] ID Date Data Source [id number] 07/07/2020 05:24:00 AM EDT [facility] Imaging Services Department Imaging Report [address], [place] [address] %(RAD)RES..mtdd.print.filter("line") Name: CORONA VALDES : 1975 Age/Sex: 45M Ordering Provider: Nelson Williamson NP Med Rec #: [id number] Reg Status: [facility] Room #: Date of Service: 07/05/20 Report Number: [id number] cc:PCP None Send Report To: [id number] XRP/XR Chest Xray Portable Reason for exam: detox clearance - COVID positive FINDINGS: The cardiac and mediastinal silhouettes appear normal and the lungs are clear. The bones and soft tissues are normal. The upper abdomen is unremarkable. IMPRE SSION: No acute disease identifiable. Time portable performed: 1520 Fluoroscopy time in seconds: Number of Exposures: Contrast Agent in ml: Method of Administration: REPORT SIGNATURE ON FILE Reported By: Byron Malin DO <Electronically signed by Byron Malin DO> 07/07/20 1215 Dictation Date/Time: 07/05/20 1552 Transcribed Date/Time: 07/07/20 0524 Protector Plate Attacher: MOHAMUD Name Value Range Interpretation Code Description Data Lise rce(s) Supporting Document(s) ID Date Data Source [id number] 07/05/2020 03:39:00 PM EDT [facility] Name Value Range Interpretation Code Description Data Lise rce(s) Supporting Document(s) White Blood Count 3.5-10.5 Normal (applies to non-numeri c results) [facility] Red Blood Count 4.30-5.70 Normal (applies to non-numeric results) [facility] Hemoglobin 13.5-17.5 Normal (applies to non-numeric resul ts) [facility] Hematocrit 38.8-50.0 Normal (applies to non-numeric resul ts) [facility] Mean Corpuscular Volume 81.2-95.1 Normal (applies to non- numeric results) [facility] Mean Corpuscular Hgb 25.6-32.2 Normal (applies to non-num wagner results) [facility] Mean Corpuscular Hgb Conc 32.0-36.0 Normal (applies to no n-numeric results) [facility] Red Cell Distribution Width 11.8-15.6 Normal (appli es to non-numeric results) [facility] Platelet Count 219 x10 3/uL 150-450 Normal (applies to non-numeric results) [facility] Mean Platelet Volume 9.4-12.4 Normal (applies to non-num wagner results) [facility] Neutrophils% (Auto) 31.0-71.0 Above high normal [facility] Lymphocytes% (Auto) 20.0-55.0 Below low normal [facility] Monocytes% (Auto) 4.0-12.0 Normal (applies to non-numeri c results) [facility] Eosinophils% (Auto) 1.0-8.0 Below low normal [facility] Basophils% (Auto) 0.0-2.0 Normal (applies to non-numeri c results) [facility] Immature Granulocytes% (Auto) 0.0-2.0 Normal (jluis lies to non-numeric results) [facility] Neutrophils# (Auto) 1.50-6.20 Above high normal [facility] Lymphocytes# (Auto) 1.20-4.00 Normal (applies to non-nume milan results) [facility] Monocytes# (Auto) 0.00-0.90 Normal (applies to non-numeri c results) [facility] Eosinophils# (Auto) 0.00-0.50 Normal (applies to non-nume milan results) [facility] Basophils# (Auto) 0.00-0.20 Normal (applies to non-numeri c results) [facility] Immature Granulocytes# (Auto) 0.00-7.00 No rmal (applies to non-numeric results) [facility] ID Date Data Source [id number] 07/05/2020 04:58:00 PM EDT [facility] Name Value Range Interpretation Code Description Data Lise rce(s) Supporting Document(s) Ethanol Less than 10.0 Normal (applies to non-numeric r esults) [facility] ID Date Data Source [id number] 07/05/2020 05:09:00 PM EDT [facility] Name Value Range Interpretation Code Description Data Lise rce(s) Supporting Document(s) UDS Benzodiazepines Screen Negative Normal (applies to n on-numeric results) [facility] UDS Cocaine Screen Negative Normal (applies to non-numer ic results) [facility] UDS Ampetamine Screen Negative Normal (applies to non-nu meric results) [facility] UDS Cannabinoids Screen Negative Normal (applies to non- numeric results) [facility] UDS Opiates Screen Negative Normal (applies to non-numer ic results) [facility] UDS Barbiturates Screen Negative Normal (applies to non- numeric results) [facility] Threshold Levels Benzodiazepine 200 ng/mL Cocaine 300 ng/mL Amphetamines 1000 ng/mL Cannabinoids (THC) 50 ng/mL Opiates 300 ng/mL Barbiturates 200 ng/mL All positive findings are presumptive and unconfirmed. Confirmation of positive results are performed only at request of provider. Unconfirmed results must not be used for non-medical purposes (i.e. preemployment and legal purposes) ID Date Data Source [id number] 07/05/2020 05:06:00 PM EDT [facility] Collected By: Nurse Initials: cs Time Collected: 1530 Name Value Range Interpretation Code Description Data Lise rce(s) Supporting Document(s) Color,Urine Colorl-Dk Y Normal (applies to non-numeric res ults) [facility] Clarity,Urine Clear Normal (applies to non-numeric re sults) [facility] Specific [place],Urine 1.005-1.030 Normal (applies to non- numeric results) [facility] pH,Urine 5.0-8.0 Normal (applies to non-numeric resul ts) [facility] Protein,Urine Negative Normal (applies to non-numeric re sults) [facility] Glucose,Urine Negative Normal (applies to non-numeric re sults) [facility] Ketones,Urine Negative [facility] Blood,Urine Negative Normal (applies to non-numeric resu lts) [facility] Bilirubin,Urine Negative Normal (applies to non-numeric results) [facility] Urobilinogen,Urine 0.2-1.0 Normal (applies to non-numer ic results) [facility] Leukocyte Esterase,Urine Negative Normal (applies to non -numeric results) [facility] Nitrite,Urine Negative Normal (applies to non-numeric re sults) [facility] ID Date Data Source [id number] 07/05/2020 05:26:00 PM EDT [facility] Name Value Range Interpretation Code Description Data Lise rce(s) Supporting Document(s) Sodium 141 mmol/L 136-145 Normal (applies to non-numeric resul ts) [facility] Potassium 3.5-5.1 Normal (applies to non-numeric resul ts) [facility] Chloride 102 mmol/L 98-107 Normal (applies to non-numeric resul ts) [facility] Carbon Dioxide CO2 21-32 Normal (applies to non-numer ic results) [facility] Anion Gap 5.0-16.0 Normal (applies to non-numeric resul ts) [facility] BUN 10 mg/dL 7-18 Normal (applies to non-numeric results) [facility] Creatinine,Serum 0.8-1.5 Below low normal [facility] GFR >60 Normal (applies to non-numeric results) [facility] Glucose Level 94 mg/dL 60-99 Normal (applies to non-numeric re sults) [facility] Reference range is only applicable when patient is fasting Note the following drug interference: Sulfasalazine Sulfapyridine Can see falsely depressed Can see falsely elevated result with up to 17% results with up to 11% decrease in measurement increase in measurement Recommend patients be collected for this test prior to administration of either drug. Calcium 8.5-10.1 Normal (applies to non-numeric resul ts) [facility] Bilirubin,Total 0.1-1.9 Normal (applies to non-numeric results) [facility] SGOT(AST) 20 U/L 15-37 Normal (applies to non-numeric resul ts) [facility] Note the following drug interference: Sulfasalazine Sulfapyridine Can see falsely depressed Can see falsely elevated result with up to 10% results with up to 10% decrease in measurement increase in measurement Recommend patients be collected for this test prior to administration of either drug. SGPT(ALT) 107 U/L 12-78 Above high normal [facility]ital Note the following drug interference: Sulfasalazine Sulfapyridine Can see falsely depressed Can see falsely elevated result with up to 29% results with up to 10% decrease in measurement increase in measurement Recommend patients be collected for this test prior to administration of either drug. Alkaline Phosphatase 91 U/L 38-126 Normal (applies to non-num wagner results) [facility] can increase Alkaline Phosp le vels up to 2 times the normal adult value. Normal values for children and adolescents are 2 to 3 times the normal adult value. Total Protein 6.0-8.2 Normal (applies to non-numeric re sults) [facility] Albumin Level 3.4-5.0 Normal (applies to non-numeric re sults) [facility] ID Date Data Source [id number] 07/05/2020 05:26:00 PM EDT [facility] Name Value Range Interpretation Code Description Data Lise rce(s) Supporting Document(s) Troponin I 0.000-0.056 Normal (applies to non-numeric resu lts) [facility] ID Date Data Source [id number] 07/05/2020 05:26:00 PM EDT [facility] Name Value Range Interpretation Code Description Data Lise rce(s) Supporting Document(s) Magnesium 1.8-2.4 Normal (applies to non-numeric resul ts) [facility] ID Date Data Source [id number] 07/05/2020 05:26:00 PM EDT [facility] Name Value Range Interpretation Code Description Data Lise rce(s) Supporting Document(s) Salicylate 2.8-20.0 Normal (applies to non-numeric resul ts) [facility] ID Date Data Source [id number] 07/05/2020 05:26:00 PM EDT [facility] Name Value Range Interpretation Code Description Data Lise rce(s) Supporting Document(s) Acetaminophen 10.0-30.0 Below low normal [facility] ID Date Data Source [id number] 07/05/2020 12:45:00 PM EDT [facility] Name Value Range Interpretation Code Description Data Lise rce(s) Supporting Document(s) Respiratory specimen severe acute respir atory syndrome coronavirus 2 (SARS-CoV-2) RNA Positive (qualifier value) [place] [facility] This lab was ordered by Cinthyameño gregorio and reported by . ID Date Data Source [id number] 07/05/2020 01:24:00 PM EDT [facility] First test? NOEmployed in healthcare? NOSymptomatic per CDC? NOHospitalized? NOICU? NOResident in congregated care? ex snf, [facility] NO? NO Name Value Range Interpretation Code Description Data Lise rce(s) Supporting Document(s) SARS-CoV-2 RNA Negative [facility] Positive results do not rule out bacteri al infection or co-infection with other viruses. This test has not been FDA cleared or approved; this test has been authorized by FDA under an Emergency Use Authorization for use by laboratories certified under the Clinical Laboratory Improvement Amendments of 1988 (CLIA), 42 U.S.C. ???263a, to perform moderate complexity/high complexity tests and at the Point of Care (POC), i.e., in patient care settings operating under a CLIA Certificate of Waiver, Certificate of Compliance, or Certificate of Accreditation. Factsheets for healthcare providers: https:/ /www.fda.gov/media/724699/download Factsheets for patients: https://www.fda.gov/media/785691/download The ID NOW Instrument is a rapid molecular in vitro diagnostic test utilizing an isothermal nucleic acid amplification technology intended for the qualitative detection of nucleic acid from the SARS-CoV-2 viral RNA. THIS IS A STATE REPORTABLE COMMUNICABLE DISEASE. Results called 07/05/201322,JOHNNY SMITH read back information to BO Manual entry verified by Ameena Castro 07/05/201322 ID Date Data Source [id number] 03/01/2020 05:10:00 PM EST [facility] Name Value Range Interpretation Code Description Data Lise rce(s) Supporting Document(s) SARS coronavirus 2 RNA [Presence] in Res piratory specimen by DANA with probe detection [facility] This lab was ordered by [facility] a nd reported by [facility]. ID Date Data Source [id number] 03/03/2020 03:29:00 PM EST [facility] Name Value Range Interpretation Code Description Data Lise rce(s) Supporting Document(s) Sodium 142 mmol/L 137-145 Normal (applies to non-numeric resul ts) [facility] Potassium 3.5-5.1 Normal (applies to non-numeric resul ts) [facility] Chloride 110 mmol/L 98-112 Normal (applies to non-numeric resul ts) [facility] Carbon Dioxide CO2 22.0-33.0 Normal (applies to non-numer ic results) [facility] Anion Gap 4.0-11.0 Normal (applies to non-numeric resul ts) [facility] BUN 14 mg/dL 9-20 Normal (applies to non-numeric resul ts) [facility] Creatinine 0.80-1.50 Normal (applies to non-numeric resul ts) [facility] GFR >60 Normal (applies to non-numeric results) [facility] Result based on MDRD formula. Glucose Level 72 mg/dL 74-99 Below low normal [facility] The reference range is only applicable w hen fasting. Calcium-Uncorrected 8.4-10.2 Normal (applies to non-nume milan results) [facility] Corrected Calcium 8.4-10.2 Normal (applies to non-numeri c results) [facility] Bilirubin,Total 0.2-1.3 Normal (applies to non-numeric results) [facility] SGOT(AST) 7 U/L 17-59 Below low normal [facility] SGPT(ALT) 41 U/L 21-72 Normal (applies to non-numeric resul ts) [facility] Alkaline Phosphatase 64 U/L 38-126 Normal (applies to non-num wagner results) [facility] can increase Alkaline Phosp le vels up to 2 times the normal adult value. Normal values for children and adolescents are 2 to 3 times the normal adult value. Total Protein 6.3-8.2 Normal (applies to non-numeric re sults) [facility] Albumin 3.5-5.0 Normal (applies to non-numeric resul ts) [facility] ID Date Data Source [id number] 02/15/2020 01:42:00 PM [facility] Name: CORONA VALDES : 1975 Age/Sex: 44M Ordering Provider: KATHY Kilgore Med Rec #: [id number] Reg Status:DIS IN Room #: 132-2 Date of Service: 01/25/20 Report Number: [id number] cc: KATHY Kilgore; Cathy Hu MD Send Report To: Reason for exam: intermittent chest pain history of prolonged QT-interval Please refer to EMR to view scanned EKG tracing, report and dictating providers signature.02/15/2020 1343 MJS REPORT SIGNATURE ON FILE 02/15/20 1343 Reported By: Amy Zimmerman RN Exam Date/Time: 01/25/20 0600 Order #: [id number] Dictation Date/Time: 02/15/20 1343 Transcribed Date/Time: 02/15/20 1342 Protector Plate Attacher: MARIELSO Name Value Range Interpretation Code Description Data Lise rce(s) Supporting Document(s) ID Date Data Source [id number] 03/04/2020 01:23:00 AM [facility] Name Value Range Interpretation Code Description Data Lise rce(s) Supporting Document(s) Sodium 140 mmol/L 137-145 Normal (applies to non-numeric resul ts) [facility] Potassium 3.5-5.1 Normal (applies to non-numeric resul ts) [facility] Chloride 108 mmol/L 98-112 Normal (applies to non-numeric resul ts) [facility] Carbon Dioxide CO2 22.0-33.0 Normal (applies to non-numer ic results) [facility] Anion Gap 4.0-11.0 Normal (applies to non-numeric resul ts) [facility] BUN 18 mg/dL 9-20 Normal (applies to non-numeric resul ts) [facility] Creatinine 0.80-1.50 Normal (applies to non-numeric resul ts) [facility] GFR 87 mL/min >60 Normal (applies to non-numeric resul ts) [facility] Result based on MDRD formula. Glucose Level 88 mg/dL 74-99 Normal (applies to non-numeric re sults) [facility] The reference range is only applicable w hen fasting. Calcium-Uncorrected 8.4-10.2 Normal (applies to non-nume milan results) [facility] Corrected Calcium 8.4-10.2 Normal (applies to non-numeri c results) [facility] Bilirubin,Total 0.2-1.3 Normal (applies to non-numeric results) [facility] SGOT(AST) 12 U/L 17-59 Below low normal [facility] SGPT(ALT) 62 U/L 21-72 Normal (applies to non-numeric resul ts) [facility] Alkaline Phosphatase 69 U/L 38-126 Normal (applies to non-num wagner results) [facility] can increase Alkaline Phosp le vels up to 2 times the normal adult value. Normal values for children and adolescents are 2 to 3 times the normal adult value. Total Protein 6.3-8.2 Normal (applies to non-numeric re sults) [facility] Albumin 3.5-5.0 Normal (applies to non-numeric resul ts) [facility] ID Date Data Source [id number] 03/04/2020 01:23:00 AM EST [facility] Name Value Range Interpretation Code Description Data Lise rce(s) Supporting Document(s) Thyroid Stimulate Hormone TSH 0.358-3.740 No rmal (applies to non-numeric results) [facility] ID Date Data Source [id number] 03/04/2020 01:23:00 AM EST [facility] Name Value Range Interpretation Code Description Data Lise rce(s) Supporting Document(s) C-Reactive Protein,Wide Range <3.00 Normal (applies t o non-numeric results) [facility] ID Date Data Source [id number] 03/04/2020 01:23:00 AM EST [facility] Name Value Range Interpretation Code Description Data Lise rce(s) Supporting Document(s) hsCRP CARDIAC 0.00-3.00 Normal (applies to non-numeric re sults) [facility] ID Date Data Source [id number] 03/04/2020 01:23:00 AM EST [facility] Name Value Range Interpretation Code Description Data Ilse rce(s) Supporting Document(s) White Blood Count 4.8-10.8 Normal (applies to non-numeri c results) [facility] Red Blood Count 4.35-6.08 Normal (applies to non-numeric results) [facility] Hemoglobin 13.0-17.5 Normal (applies to non-numeric resul ts) [facility] Hematocrit 37.7-51.0 Normal (applies to non-numeric resul ts) [facility] Mean Corpuscular Volume 80-94 Normal (applies to non- numeric results) [facility] Mean Corpuscular Hemoglobin 27.0-33.0 Normal (appli es to non-numeric results) [facility] Mean Corpuscular HGB Conc 32.0-36.0 Normal (applies to no n-numeric results) [facility] Red Cell Distribution Width 11.5-14.5 Normal (appli es to non-numeric results) [facility] Platelet Count 226 X10 3/uL 130-450 Normal (applies to non-numeric results) [facility] Mean Platelet Volume 9.6-13.1 Normal (applies to non-num wagner results) [facility] Imm Grans% (AUTO) 1 % 0-2 Normal (applies to non-numeri c results) [facility] Neutrophils % (AUTO) 70 % 40-75 Normal (applies to non-num wagner results) [facility] Lymphocytes % (AUTO) 22 % 21-46 Normal (applies to non-num wagner results) [facility] Monocytes % (AUTO) 7 % 5-12 Normal (applies to non-numer ic results) [facility] Eosinophils % (AUTO) 1 % 1-5 Normal (applies to non-num wagner results) [facility] Basophils % (AUTO) 0 % 0-1 Normal (applies to non-numer ic results) [facility] Imm Grans# (AUTO) 0.0-0.5 Normal (applies to non-numeri c results) [facility] Neutrophils # (AUTO) 1.5-8.1 Normal (applies to non-num wagner results) [facility] Lymphocytes # (AUTO) 1.0-3.1 Normal (applies to non-num wagner results) [facility] Monocytes # (AUTO) 0.2-1.3 Normal (applies to non-numer ic results) [facility] Eosinophils# (AUTO) 0.0-0.5 Normal (applies to non-nume milan results) [facility] Basophils # (AUTO) 0.0-0.1 Normal (applies to non-numer ic results) [facility] ID Date Data Source [id number] 03/04/2020 01:23:00 AM EST [facility] Name Value Range Interpretation Code Description Data Lise rce(s) Supporting Document(s) Hep C Ab-T Test Nonreactive Normal (applies to non-numeric results) [facility] Hep Bs Ag Result T-Test Nonreactive Normal (applies to non -numeric results) [facility] HBCT Nonreactive Normal (applies to non-numeric resu lts) [facility] HAVM Nonreactive Normal (applies to non-numeric resu lts) [facility] ID Date Data Source [id number] 03/04/2020 01:23:00 AM EST [facility] Name Value Range Interpretation Code Description Data Lise rce(s) Supporting Document(s) Vitamin D,Total (25OH) 30.0-100.0 Below low normal [facility] Manual entry verified by Shama Valencia 1931 Reference Range: <10 ng/mL: Deficient 10-30 ng/mL: Insufficient 30-100 ng/mL: Sufficient >100 ng/mL: Toxicity possible ID Date Data Source [id number] 03/04/2020 01:23:00 AM EST [facility] Name Value Range Interpretation Code Description Data Lise rce(s) Supporting Document(s) Syphilis Serology Nonreactive Normal (applies to non-numer ic results) [facility] ID Date Data Source [id number] 02/06/2020 04:26:00 PM EST [facility] Name Value Range Interpretation Code Description Data Lise rce(s) Supporting Document(s) Chlamydia,Urine result Normal (applies to non-n umeric results) [facility] GC Urine result Normal (applies to non-numeric results) [facility] ID Date Data Source [id number] 10/13/2020 04:18:00 PM EDT [facility] COVID-19 Patient Ethnicity Not or LatinoCOVID-19 Patient Race WhiteCOVID-19 Specimen Source Nasopharyngeal Name Value Range Interpretation Code Description Data Lise rce(s) Supporting Document(s) SARS-CoV-2 Specimen Source Normal (applies to n on-numeric results) [facility] SARS-CoV-2 RNA Undetected Normal (applies to non-numeric r esults) [facility] SARS-CoV-2 RNA absent. This result does not rule out COVID-19 in the patient, as the sensitivity of the test depends on the timing of the specimen collection and the quality of the specimen. Result should be correlated with patient's history and clinical presentation. Patient Race Normal (applies to non-numeric res ults) [facility] Patient Ethnicity Normal (applies to non-numeri c results) [facility] Method Summary Normal (applies to non-numeric r esults) [facility] PKELM- This test uses the [employer] Coronavirus Nucleic Acid Detection Kit ([employer] and is performed on the 100Plus instrument and [employer] Medium 7500 Fast Real-Time PCR System. It has received Emergency Use Authorization (EUA) by the U.S. Food and Drug Administration, and is modified from the gas mask inspector's instructions with a bridging study. Performance characteristics were verified by [facility] in a manner consistent with CLIA requirements. Fact sheets for this Emergency Use Authorization (EUA) can be found at the following links: https://www.fda.gov/media/100640/download for Healthcare Providers https://www.fda.gov/media/835744/download for Patients Test Performed by: [place] [id number] Supervisor Cytogenetic Laboratory: Boni Ramirez M.D. Ph.D.; CLIA# [id number] ID Date Data Source [id number] 01/29/2020 10:21:00 AM EST [facility] COVID-19 Patient Ethnicity Not or LatinoCOVID-19 Patient Race WhiteCOVID-19 Specimen Source Nasopharyngeal Name Value Range Interpretation Code Description Data Lise rce(s) Supporting Document(s) SARS-CoV-2 Specimen Source Normal (applies to n on-numeric results) [facility] SARS-CoV-2 RNA Normal (applies to non-numeric r esults) [facility] Patient Race Normal (applies to non-numeric result s) [facility] Not or LatinoSee scanned report ID Date Data Source [id number] 01/14/2020 09:49:00 PM EDT [facility] Collected By: Nurse Initials: THK Time Collected: [id number] Name Value Range Interpretation Code Description Data Lise rce(s) Supporting Document(s) Color,Urine Colorl-Dk Y Normal (applies to non-numeric res ults) [facility] Clarity,Urine Clear Normal (applies to non-numeric re sults) [facility] Specific [place],Urine 1.005-1.030 Normal (applies to non- numeric results) [facility] pH,Urine 5.0-8.0 Normal (applies to non-numeric resul ts) [facility] Protein,Urine Negative Normal (applies to non-numeric re sults) [facility] Glucose,Urine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 times per day- PMHx: Bipolar disorder; Seizure; Anxiety; Hypercholesterolemia;Hypertensive disorder;- PSHx: c ystoscopy;- Immunization history: Flu vaccine is not up to date.- Social history: Smoking status: Patient uses tobacco products,current every day smoker. Patient/guardian denies using streetdrugs, IV drugs, ETOH status Uses ETOH Occasionally.- Advance Directives:: None.ROS:11/1500:01 Constitutional: Negative for chills, fever. Eyes: Negative for wd0picnsotiz, vision loss. ENT: Negative for difficulty swallowing,difficulty handling secretions. Neck: Negative for stiffness, bonytenderness. Cardiovascular: Negative for chest pain, palpitations.Respiratory: Negative for cough, shortness of breath. Abdomen/GI:Negative for abdominal pain, nausea, vomiting, diarrhea. Back:Negative for decreased range of motion, acute changes. MS/extremity:Negative for decreased range of motion, rash. Skin: Negative forburn, pallor. Neuro: Negative for dizziness, loss of consciousness,seizure activity, syncope. Psych: Positive for anxiety, suicidalideation, Negative for auditory hallucinations, visual hallucinations.Exam:01:01 Constitutional: The patient appears in no acute distress, alert, by5yoajq, comfortable, non- diaphoretic, non-toxic, well developed.01:01 Head/face: Exam is negative for contusion, deformity.01:01 Eyes: Exam is negative for drainage, abnormalities of symmetry, size,shape and reaction of the pupils.01:01 ENT: Exam is negative for epistaxis, abnormal voice.01:01 Neck: Exam negative for crepitus, meningismus, nuchal rigidity.01:01 Chest/axilla: Exam negative for crepitus, flail chest.01:01 Cardiovascular: Exam negative for arrhythmia, tachycardia.01:01 Respiratory: Exam negative for respiratory distress, stridor,tachypnea.01:01 Abdomen/GI: Exam negative for distension, guarding, pulsatile mass.01:01 Back: Exam negative for CVA tenderness, vertebral tenderness.01:01 Musculoskeleta l/extremity: Exam is negative for open injury, pelvicinstability.01:01 Skin: Exam negative for cyanosis, pallor.01:01 Neuro: Exam negative for focal neuro deficits, confusion, dysarthria.01:01 Psych: Behavior/mood is cooperative, Affect is calm, Oriented toperson, place, time, Patient having thoughts of suicide. Statedpreviously, denies active suicidality to meVital Signs:11/1418: BP 123 / 83; Pulse 66; Resp 18; Temp 97.9; Pulse Ox 96% ; kk: BP 121 / 68; Pulse 48; Resp 16; Temp 98.6; Pulse Ox 93% ; Pain 0/10; ef1MDM:11/1418: Patient medically screened. 1: Data reviewed: nurses notes. ED course: Patient transferred to the [address] for psychiatric evaluation, denies active suicidality. He ismedically cleared and evaluated by psychiatry to be admitted for hisdepression. No issues in the emergency department..11/1418: Order name: Diet - Mental Health Tray (call dietary); Complete Time: kk200:02011/1418:28 Order name: Belongings List; Complete Time: 19:37 :28 Order name: Document Weight and Height for BMI; Complete Time: 00:: Order name: Mental Health Evaluation; Complete Time: 00:02 :28 Order name: Mental Health Level 3; Complete Time: 00:02 : Order name: VS q shift; Complete Time: 00:02 0:06 Order name: Medically Cleared for Eval by- Psychosocial, Retail Specialist kk2(.PSA); Complete Time: 20:07Dispensed Medications:No medications were administeredSignatures:Yun Sanchez, RN RN bz9TzeoiwAnabel Rodriguez RN JOHNNY om1HkclplvTex Becker MD MD ns6Ratzicdqzqg: (The following items were deleted from the chart)11/1418:25 19:15 Allergies: Unable to obtain; kk2 kk2 Name Value Range Interpretation Code Description Data Lise rce(s) Supporting Document(s) ID Date Data Source [id number] 12/04/2019 12:02:00 AM EDT [facility] Nurse's NotesClLong [facility] terName: Corona ValdesAge: 44 yrsSex: MaleDOB: 1975MRN: [id number] Date: 12/03/2019Time: 19:07Account#: [id number] MD: Sameer Velasquezagnosis: Other depressive episodesPresentation:11/1418:12 Presenting complaint: Patient transferred from [address] for mental health admission. Patient [facility] ER withc/o needing mental health admission, had self inflicted superficiallacerations to left lower arm. Coronavirus Screening: Patientnegative for fever and symptoms of lower respiratory illness (e.g.,cough, difficulty breathing). Patient denies exposure to infectiousperson. Patient denies international travel or travel to area withwidespread COVID 19 in the 14 days before illness onset. No symptomsor risks identified at this time. Flu-like symptoms reported: no.Have you traveled internationally or had contact with someone thathas and has been ill in the past 3 weeks? no Have you traveled to [facility] with widespread or ongoing COVID-19 community spread? no.Have you had close contact with confirmed or suspected COVID-19 case?no. Have you been diagnosed with COVID-19 in the past 30 days? no.Are you currently on quarantine by Public Health? no. CommunicableDisease Screen: Negative for fever>/= 100 degrees Fahrenheit.Communicable disease screen is negative. (-) rash or unusual skinlesion (-) travel/contact with traveler (-) respiratory symptoms.19:12 Acuity: Triage 2 kk219:12 Method Of Arrival: Ambulance: [place] kk219:15 Acuity Assignment: Triage 2 yc6Gdjzhr Assessment:19:25 General: Appears in no apparent distress, Behavior is cooperative, ap3ejnroibr. Sepsis Screening: (1)Signs/symptoms infection No. Pain:Denies pain. PSS-3 Now I'm going to ask you some questions that weask everyone treated here, no matter what problem they are here for.It is part of [facility]'s policy and it helps us to make sure weare not missing anything important. Over the past 2 weeks, have youfelt down, depressed, or hopeless? Yes. Exhibiting depressed mood.Positive screen for depression, MD provider aware of positivescreening. Education provided. Over the past 2 weeks, have hadthoughts of killing yourself? No. In your lifetime, have you everattempted to kill yourself? No. Neuro: Level of Consciousness isawake, alert, Oriented to person, place, time. Cardiovascular: Nodeficits noted. Respiratory: No deficits noted. GI: No deficits noted.Historical:- Allergies: No known Allergies;- Home Meds:1. irbesartan 150 mg oral tab 1 tab once daily2. tamsulosin 0.4 mg oral cap 1 cap once daily3. levothyroxine 75 mcg oral cap 1 cap once daily4. sumatriptan succinate 4 mg/0.5 mL Sub-Q pnij 0.5 mL as needed5. lithium carbonate 600 mg Oral cap daily6. alprazolam 1 mg Oral tab 1 tab 3 times per day7. Emgality Pen 120 mg/mL subcutaneous pnij once moly8. paroxetine HCl 20 mg oral tab 1 tab once daily9. verapamil 120 mg Oral tab 1 tab 4 times per day- PMHx: Bipolar disorder; Seizure; Anxiety; Hypercholesterolemia;Hypertensive disorder;- PSHx: cystoscopy;- Immunization history: Flu vaccine is not up to date.- Social history: Smoking status: Patient uses tobacco products,current every day smoker. Patient/guardian denies using streetdrugs, IV drugs, ETOH status Uses ETOH Occasionally.- Advance Directives:: None.Screenin:26 Abuse screen: Denies threats or abuse. Denies injuries from another. wv3Nshaoteovfb screening: No deficits noted. Offer of HIV testing:patient was previously offered screening. Fall Risk None identified.Assessment:19:26 General: see triage assessment . dh4Ktrhbaotphkj:20:07 SAFE Act Report Not Completed. Intervention: Observation Level 3. [address] health consult is initiated at 20:08.20:18 Referral Information: Evaluation referral is generated by 9.[address] The patient was referred for evaluation becauseSelf-harm and wanted a medicine adjustment. Subjective: The patientschief complaint is Pt [facility] and reports that he wanted a medicine adjustment. Ptreports that he had 2 beers the other night and wanted to be admittedfor a med adjustment but [facility] reports that he would like a D/C. Pt katie es SI, HI,self-harm, substance abuse, past hx of rehab, detox, access to [facility] denies hallucinations. Pt's transfer chart reports that he cuthis arm and legs last night and called his sister, intoxicated andasking for help and that [facility] Cuts were seen on his left arm by this data analyst report writer, pt refusedto show his legs. Pt reports he has a hx of bi-polar and has not beenadmitted since 2019 for SI. Pt presents guarded and some of hisanswer did not match what his mother reported or what his transferchart reported. Pt provided this data analyst report writer permission to speak with hismother. Pt's mother, Som, reports that he is a danger to himself andhas a hx of SI & Bi- polar and was d/c from detox for alcohol useabout a year ago. Pt's mother reports that Corona is a danger tohimself and recommends that he be admitted to I/P care. .Delusions are denied, Hallucinations are denied. Patient's mood isdysthymic. Patient reports history of alcohol abuse, anxiety, BipolarDisorder, Depression, self -mutilation, Mental Health Admissions:[facility], 2019, SI Current Outpatient Mental Health Services:Psychiatrist / Agency: Dr. Read, Private practice.. LivingEnvironment: Family / Home Support: Poor The patient currently livesAlone. Detox / Rehab Admissions: 2019, alcohol abuse. Patientpresents to Emergency Department with the following symptoms withinthe past 2 weeks: anxiety, poor impulse control. Objective: Patientis guarded, Speech is normal. Affect is appropriate. Patient hasmutilated themselves by cutting left arm. Mental status exam:Patients appearance is appropriate, P atient's behavior is normal,Speech is normal. Affect is appropriate. Mood is anxious. Perceptionis normal. Appetite is normal. Memory is fair. Energy level isnormal. Content of thought is normal. Thought Process is intact.Cognitive level is Oriented to person,place and time. Insight /Judgment is poor. Rapport with interviewer is good. SuicidalIdeation: Denies. Homicidal Ideation: Denies. Patient uses alcohol.22:45 Narrative Pt's legal status and rights was placed in his belongings. cp2. Narrative Pt was notified that he is being admited 9.39 to [facility]. . Consultation: Psych MD informed of patient's status at 22:00,ED MD notified of patients status at 22:30, Mental Health SKIVER BLOCKERS madeaware of pt status at 22:05. Disposition: Medically cleared fordisposition by Dr Becker. Psychiatric Consult is performed by phonewith Dr Tang The patient is admitted to [facility] Patient report isgiven to Pt will be escorted via RN and [facility]. Legal Status:Patient's legal status will be Emergency: .39. Commitment papers arecompleted. DSM-V DX Pratt I diagnosis: Depression, Unspecified.Insurance Pre- Certification: Not Required. [facility] Admission Criteria:The patient displays self- mutilative behavior. The patient requirescontinuous observation and/or control to protect self, others orproperty. The patient's care requires a multi-modal treatment planunder close supervision and coordination due to the complexity and severity of the patient's symptoms. The patient requiresadministration and monitoring of psychoactive medications by skilledmedical providers due to the side effects of the psychoactivemedications or significant dosage adjustments. [facility] 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 lz2Yjndxrplc: Patient is cooperative, Speech is normal, Affect isappropriate. Interventions: Removed personal items and placed in bag.Patient placed in hospital gown. Searched person for dangerous items.Observation Level Level 3 Sitter needed. Charge nurse notified.Yun Sanchez RN Level 3 order placed.Vital Signs:19:09 BP 123 / 83; Pulse 66; Resp 18; Temp 97.9; Pulse Ox 96% ; kk1500:01 BP 121 / 68; Pulse 48; Resp 16; Temp 98.6; Pulse Ox 93% ; Pain 0/10; ef1ED Course:11/1418:08 Patient arrived in ED. kk219:08 Niki Velasquez is Private Physician. kk219:11 Txe Becker MD is Attending Physician. dk219:12 Yun Sanchez, RN is Primary Nurse. kk219:15 Triage completed. kk219:26 Arm band placed on Patient placed in exam room Patient notified of bf1mcks time.19:26 Patient has correct armband on for positive identification. Bed in kk2low position. Sitter at bedside.19:26 No Physician assisted procedures completed. kk219:37 Valuables inventory done. geg22:58 Ronald Tang MD is Hospitalizing Provider. ye6Yvfhglkositf Medications:No medications were administeredOutcome:22:58 Decision to Hospitalize by Provider. dk:01 Disposition: Admitted to Psych il1Zqokziuzd: stable.Discharge instructions given to patient, Instructed on need foradmit, Demonstrated understanding of instructions.Discharge Assessment: Patient verbalized understanding of dispositioninstructions. Patient has no functional deficits.00:02 Patient left the ED. eq1Xizctajnwp:Gassert, Kinsey, OMKAR OMKAR Yun Dior RN RN [id number] Rodriguez RN RN [id number] Becker MD MD [id number], Lyndon, PSA PSA [id number]: (The following items were deleted from the chart)11/1418:25 19:15 Allergies: Unable to obtain; kk2 [id number] 22:45 Irene Suicide Severity Rating Scale: Suicidal Ideation [id number] 3; Intensity of Ideations Rating 3; Suicidal Behavior Rating [id number] 00:01 BP 121 / 168; Pulse 48bpm; Resp 16bpm; Pulse Ox 93%; Temp ef198.6F; Pain 0/10; ef1 Name Value Range Interpretation Code Description Data Lise rce(s) Supporting Document(s) Procedure Social History Code Duration Value Status Description Data Source(s ) Smoking 07/29/2020 12:00:00 AM EDT Current Smoker completed Curre nt Smoker eCW1 ([facility]) Smoking 07/29/2020 12:00:00 AM EDT Current Smoker completed Curre nt Smoker eCW1 ([facility]) Smoking 07/29/2020 12:00:00 AM EDT Current Smoker completed Curre nt Smoker eCW1 ([facility]) Smoking 07/29/2020 12:00:00 AM EDT Current Smoker completed Curre nt Smoker eCW1 ([facility]) Smoking 06/03/2020 12:00:00 AM EDT Current Smoker completed Curre nt Smoker eCW1 ([facility]) Smoking 06/03/2020 12:00:00 AM EDT Current Smoker completed Curre nt Smoker eCW1 ([facility]) Smoking 06/03/2020 12:00:00 AM EDT Current Smoker completed Curre nt Smoker eCW1 ([facility]) Smoking 02/21/2020 12:00:00 AM EST Current Smoker completed Curre nt Smoker eCW1 ([facility]) Smoking 02/21/2020 12:00:00 AM EST Current Smoker completed Curre nt Smoker eCW1 ([facility]) Smoking 02/21/2020 12:00:00 AM EST Current Smoker completed Curre nt Smoker eCW1 ([facility]) Vital Signs ID Date Data Source UNK Name Value Range Interpretation Code Description Data Source(s) Diastolic blood pressure 71 mm[Hg] 71 mm[Hg] eCW1 ([facility]) Systolic blood pressure 117 mm[Hg] 117 mm[Hg] e CW1 ([facility]) Body temperature 98.1 [degF] 98.1 [degF] eCW1 ( [facility]) Respiratory rate 18 /min 18 /min eCW1 ([facility]) Heart rate 83 /min 83 /min eCW1 ([facility]) Body mass index (BMI) [Ratio] 25.01 kg/m2 25.01 kg/m2 eCW1 ([facility]) Body height 69 [in_i] 69 [in_i] eCW1 ([facility]) Body weight 169.4 [lb_av] 169.4 [lb_av] eCW1 ([facility]) Diastolic blood pressure 86 mm[Hg] 86 mm[Hg] eCW1 ([facility]) Systolic blood pressure 126 mm[Hg] 126 mm[Hg] e CW1 ([facility]) Body temperature 98.2 [degF] 98.2 [degF] eCW1 ( [facility]) Respiratory rate 18 /min 18 /min eCW1 ([facility]) Heart rate 98 /min 98 /min eCW1 ([facility]) Body mass index (BMI) [Ratio] 25.10 kg/m2 25.10 kg/m2 eCW1 ([facility]) Body height 69 [in_i] 69 [in_i] eCW1 ([facility]) Body weight 170 [lb_av] 170 [lb_av] eCW1 ([facility]) Diastolic blood pressure 80 mm[Hg] 80 mm[Hg] eCW1 ([facility]) Systolic blood pressure 133 mm[Hg] 133 mm[Hg] e CW1 ([facility]) Body temperature 99.1 [degF] 99.1 [degF] eCW1 ( [facility]) Respiratory rate 18 /min 18 /min eCW1 ([facility]) Heart rate 90 /min 90 /min eCW1 ([facility]) Body mass index (BMI) [Ratio] 24.66 kg/m2 24.66 kg/m2 eCW1 ([facility]) Body height 69 [in_i] 69 [in_i] eCW1 ([facility]) Body weight 167 [lb_av] 167 [lb_av] [facility] ID Date Data Source [id number] 07/15/2020 12:14:00 PM EDT [facility] Name Value Range Interpretation Code Description Data Source(s) Weight Measurement Method 5 5 [facility] Weight (Calculated Kilograms) 79.38 79.38 [facility] Weight 2680.0 2680.0 [facility] Temperature Source 7 7 [facility] Temperature 98.3 98.3 [facility] Respiratory Effort 1 1 [facility] Respiratory Rate 16 16 [facility] Pulse Assessment Method 4 4 [facility] Pulse Rate 69 69 [facility] Height (Calculated Centimeters) 172.72 172. 72 [facility] Height 68 68 [facility] Blood Pressure 142/79 142/79 [facility] Body Mass Index (BMI) 26.6 26.6 [facility] Weight Measurement Method 5 5 [facility] Weight (Calculated Kilograms) 79.38 79.38 [facility] Weight 2680.0 2680.0 [facility] Temperature Source 7 7 [facility] Temperature 98.3 98.3 [facility] Respiratory Effort 1 1 [facility] Respiratory Rate 16 16 [facility] Pulse Assessment Method 4 4 [facility] Pulse Rate 69 69 [facility] Height (Calculated Centimeters) 172.72 172. 72 [facility] Height 68 68 [facility] Blood Pressure 142/79 142/79 [facility] Body Mass Index (BMI) 26.6 26.6 [facility] Weight Measurement Method 5 5 [facility] Weight (Calculated Kilograms) 79.38 79.38 [facility] Weight 2697.6 2697.6 [facility] Temperature Source 1 1 [facility] Temperature 97 97 [facility] Respiratory Effort 1 1 [facility] Respiratory Rate 18 18 [facility] Pulse Assessment Method 4 4 [facility] Pulse Rate 60 60 [facility] Height (Calculated Centimeters) 172.72 172. 72 [facility] Height 68 68 [facility] Blood Pressure 129/88 129/88 [facility] Body Mass Index (BMI) 26.6 26.6 [facility] Weight Measurement Method 5 5 [facility] Weight (Calculated Kilograms) 79.38 79.38 [facility] Weight 2800 2800 [facility] Temperature Source 7 7 [facility] Temperature 98 98 [facility] Respiratory Rate 18 18 [facility] Pulse Assessment Method 4 4 [facility] Pulse Rate 67 67 [facility] Height (Calculated Centimeters) 172.72 172. 72 [facility] Height 68 68 [facility] Blood Pressure 130/87 130/87 [facility] Body Mass Index (BMI) 26.6 26.6 [facility] ID Date Data Source [id number] 08/14/2020 03:40:00 PM EDT [facility] Name Value Range Interpretation Code Description Data Source(s) Weight Measurement Method 8 8 [facility] Weight (Calculated Kilograms) 77.84 77.84 [facility] 2640 [facility]40 [facility] 1 1 [facility] Temperature 97.8 97.8 [facility] Respiratory Effort 1 1 [facility] Respiratory Rate 18 18 [facility] Pulse Assessment Method 4 4 [facility] Pulse [facility] 83 83 [facility] Height (Calculated Centimeters) 175.26 175. 26 [facility] 69 69 [facility] 143/80 143/80 [facility] Body Mass Index (BMI) 25.3 25.3 [facility] Weight Measurement Method 8 8 [facility] Weight (Calculated Kilograms) 77.84 77.84 [facility] Weight 2640 2640 [facility] 1 1 [facility] Temperature 98.4 98.4 [facility] Respiratory Effort 1 1 [facility] Respiratory Rate 14 14 [facility] Pulse Assessment Method 4 4 [facility] Pulse Rate 73 73 [facility] pital Height (Calculated Centimeters) 175.26 175. 26 [facility] Height 69 69 [facility] pital Blood Pressure 148/94 148/94 [facility] Body Mass Index (BMI) 25.3 25.3 [facility] Weight Measurement Method 8 8 [facility] Weight (Calculated Kilograms) 77.84 77.84 [facility] Weight 2640 2640 [facility] pital Temperature Source 1 1 [facility] Temperature 98.4 98.4 [facility] Respiratory Effort 1 1 [facility] Respiratory Rate 14 14 [facility] Pulse Assessment Method 4 4 [facility] Pulse Rate 73 73 [facility] pital Height (Calculated Centimeters) 175.26 175. 26 [facility] Height 69 69 [facility] pital Blood Pressure 148/94 148/94 [facility] Body Mass Index (BMI) 25.3 25.3 [facility] Weight (Calculated Kilograms) 77.84 77.84 [facility] Height (Calculated Centimeters) 175.26 175. 26 [facility] Body Mass Index (BMI) 25.3 25.3 [facility] Weight (Calculated Kilograms) 77.84 77.84 [facility] Height (Calculated Centimeters) 175.26 175. 26 [facility] Body Mass Index (BMI) 25.3 25.3 [facility] ID Date Data Source [id number] 07/06/2020 12:01:00 AM EDT [facility] Name Value Range Interpretation Code Description Data Source(s) Weight (Calculated Kilograms) 77.84 77.84 [facility] Height (Calculated Centimeters) 175.26 175. 26 [facility] Body Mass Index (BMI) 25.3 25.3 [facility] ID Date Data Source [id number] 03/04/2020 01:23:00 AM EST [facility] Name Value Range Interpretation Code Description Data Source(s) Weight 2688 2688 [facility] Temperature Source 7 7 [facility] Temperature 97.7 97.7 [facility] Respiratory Rate 18 18 [facility] Pulse Assessment Method 4 4 [facility] Pulse Rate 71 71 [facility] Height 69 69 [facility] Blood Pressure 132/83 132/83 [facility] Weight 2688 2688 [facility] Temperature Source 7 7 [facility] Temperature 97.7 97.7 [facility] Respiratory Rate 18 18 [facility] Pulse Assessment Method 4 4 [facility] Pulse Rate 71 71 [facility] Height 69 69 [facility] Blood Pressure 132/83 132/83 [facility] Weight 2688 2688 [facility] Temperature Source 7 7 [facility] Temperature 97.1 97.1 [facility] Respiratory Rate 16 16 [facility] Pulse Assessment Method 4 4 [facility] Pulse Rate 69 69 [facility] Height 69 69 [facility] Blood Pressure 136/85 136/85 [facility] Weight 2688 2688 [facility] Temperature Source 7 7 [facility] Temperature 96.7 96.7 [facility] Respiratory Rate 18 18 [facility] Pulse Assessment Method 4 4 [facility] Pulse Rate 65 65 [facility] Height 69 69 [facility] Blood Pressure 129/78 129/78 [facility] ID Date Data Source [id number] 01/14/2020 10:08:00 PM EDT [facility] Name Value Range Interpretation Code Description Data Source(s) Weight Measurement Method 1 1 [facility] Weight (Calculated Kilograms) 74.39 74.39 [facility] Weight 2624 2624 [facility] Temperature Source 1 1 [facility] Temperature 98.6 98.6 [facility] Respiratory Effort 1 1 [facility] Respiratory Rate 18 18 [facility] Pulse Assessment Method 4 4 [facility] Pulse Rate 74 74 [facility] Height (Calculated Centimeters) 175.26 175. 26 [facility] Height 69 69 [facility] Blood Pressure 148/88 148/88 [facility] Body Mass Index (BMI) 24.2 24.2 [facility] Weight (Calculated Kilograms) 77.84 77.84 [facility] Height (Calculated Centimeters) 175.26 175. 26 [facility] Body Mass Index (BMI) 25.3 25.3 [facility] ID Date Data Source [id number] 03/13/2020 11:41:00 AM EST [facility] Name Value Range Interpretation Code Description Data Source(s) Weight (Calculated Kilograms) 77.84 77.84 [facility] Height (Calculated Centimeters) 175.26 175. 26 [facility] Body Mass Index (BMI) 25.3 25.3 [facility] Weight (Calculated Kilograms) 77.84 77.84 [facility] Height (Calculated Centimeters) 175.26 175. 26 [facility] Body Mass Index (BMI) 25.3 25.3 [facility] ID Date Data Source [id number] 03/03/2020 08:00:00 AM EST [facility] Name Value Range Interpretation Code Description Data Source(s) WEIGHT 73 kilos 73 kilos [facility] HEIGHT 175.26 centimeters 175.26 centimeter [facility] 79 [facility]26 centimeters 175.26 centimeter [facility] Patient Treatment Plan of Care Planned Activity Planned Date Details Description Data Source (s) Oxygen 03/04/2020 12:00:00 AM EST e CW1 ([facility]) Oxygen 03/04/2020 12:00:00 AM EST e CW1 ([facility])
[2021-01-01] MEDS ORDERED: PAXI10TA12 PO (13:23)
[2021-01-01] MEDS ORDERED: ONDANSETRON 4MG/2ML VIAL IV ONE (13:25)
[2021-01-01] MEDS ORDERED: NS 1,000 ML IV ONE (13:25)
[2021-01-01] MEDS ORDERED: KETOROLAC 30 MG/ML 1ML VIAL IV ONE (13:25)
[2021-01-01 13:28] VITALS: BP 140/80
--- OUTSIDE RECORDS SUMMARY | 2021-01-01 13:42 | CCD ---
Author Author [facility] Organization [facility] Address Unknown Phone Unavailable Care Team Providers Care Rn Telephone Triage Name Role Phone Dayanna PERLA MD Unavailable [...] ARPIT DO Unavailable Unavailable Cougler, S Nelson PYTHON JAVA DEVELOPER Unavailable Unavailable Cougler, S Nelson PYTHON JAVA DEVELOPER Unavailable Unavailable Cougler, S Nelson PYTHON JAVA DEVELOPER Unavailable Unavailable Cougler, S Nelson PYTHON JAVA DEVELOPER Unavailable Unavailable Cougler, S Nelson PYTHON JAVA DEVELOPER Unavailable Unavailable Cougler, S Nelson PYTHON JAVA DEVELOPER Unavailable Unavailable Cougler, S Nelson PYTHON JAVA DEVELOPER Unavailable Unavailable Cougler, S Nelson PYTHON JAVA DEVELOPER Unavailable Unavailable Cougler, S Nelson PYTHON JAVA DEVELOPER Unavailable Unavailable Cougler, S Nelson PYTHON JAVA DEVELOPER Unavailable Unavailable Cougler, S Nelson PYTHON JAVA DEVELOPER Unavailable Unavailable Cougler, S Nelson PYTHON JAVA DEVELOPER Unavailable Unavailable Cougler, S Nelson PYTHON JAVA DEVELOPER Unavailable Unavailable Cougler, S Nelson PYTHON JAVA DEVELOPER Unavailable Unavailable Cougler, S Nelson PYTHON JAVA DEVELOPER Unavailable Unavailable Cougler, S Nelson PYTHON JAVA DEVELOPER Unavailable Unavailable Cougler, S Nelson PYTHON JAVA DEVELOPER Unavailable Unavailable Cougler, S Nelson PYTHON JAVA DEVELOPER Unavailable Unavailable Cougler, S Nelson PYTHON JAVA DEVELOPER Unavailable Unavailable Cougler, S Nelson PYTHON JAVA DEVELOPER Unavailable Unavailable Cougler, S Nelson PYTHON JAVA DEVELOPER Unavailable Unavailable Cougler, S Nelson PYTHON JAVA DEVELOPER Unavailable Unavailable Cougler, S Nelson PYTHON JAVA DEVELOPER Unavailable Unavailable Cougler, S Nelson PYTHON JAVA DEVELOPER Unavailable Unavailable Cougler, S Nelson PYTHON JAVA DEVELOPER Unavailable Unavailable Cougler, S Nelson PYTHON JAVA DEVELOPER Unavailable Unavailable Cougler, S Nelson PYTHON JAVA DEVELOPER Unavailable Unavailable Cougler, S Nelson PYTHON JAVA DEVELOPER Unavailable Unavailable Cougler, S Nelson PYTHON JAVA DEVELOPER Unavailable Unavailable Cougler, S Nelson PYTHON JAVA DEVELOPER Unavailable Unavailable Cougler, S Nelson PYTHON JAVA DEVELOPER Unavailable Unavailable Cougler, S Nelson PYTHON JAVA DEVELOPER Unavailable Unavailable Cougler, S Nelson PYTHON JAVA DEVELOPER Unavailable Unavailable Cougler, S Nelson PYTHON JAVA DEVELOPER Unavailable Unavailable Cougler, S Nelson PYTHON JAVA DEVELOPER Unavailable Unavailable Cougler, S Nelson PYTHON JAVA DEVELOPER Unavailable Unavailable Cougler, S Nelson PYTHON JAVA DEVELOPER Unavailable Unavailable Cougler, S Nelson PYTHON JAVA DEVELOPER Unavailable Unavailable Cougler, S Nelson PYTHON JAVA DEVELOPER Unavailable Unavailable Cougler, S Nelson PYTHON JAVA DEVELOPER Unavailable Unavailable Cougler, S Nelson PYTHON JAVA DEVELOPER Unavailable Unavailable Cougler, S Nelson PYTHON JAVA DEVELOPER Unavailable Unavailable Cougler, S Nelson PYTHON JAVA DEVELOPER Unavailable Unavailable Cougler, S Nelson PYTHON JAVA DEVELOPER Unavailable Unavailable TEX BECKER MD Unavailable [...] Unavailable ASAR, CATHY SORTO Unavailable Unavailable Asar, Hasanalyesenia Morgan MD Unavailable Unavailable CLYDE, RONALD MD Unavailable Unavailable CLYDE, RONALD Unavailable Unavailable CLYDE, RONALD MD Unavailable Unavailable CLDYE, RONALD Unavailable Unavailable CLYDE, RONALD MD Unavailable Unavailable [...] is protected by Article 27-F of the [facility] Public Health law. If you continue you may have access to information: Regarding HIV / AIDS; Provided by facilities licensed or operated by the [facility] Office of Mental Health; or Provided by the [facility] Office for People With Developmental Disabilities. If such information is present, then the following [facility] mandated warning applies: This information has been [...] law may result in a fine or penitentiary sentence or both. A general authorization for the release of medical or other information is NOT sufficient authorization for further disc losure. Allergies and Adverse Reactions Type Description Substance Reaction Status Data Source(s ) Drug allergy Drug allergy No Known Allergies [facility] Drug allergy Drug allergy No Known Allergies [facility] Drug allergy aspirin aspirin [facility] Family History Family Member Name Family Member Gender Family Member Status Date o f Status Description Data Source(s) Unknown Male Problem MEDENT ([facility]) to pt Unknown Male Problem MEDENT ([facility] Encounters Encounter Providers Location Date Indications Data Source(s ) Outpatient Attender: ARPIT CADE DO Felicia/[place]/Pete/Reindl 12/03/2020 01:23:00 AM EDT [facility] ([facility] Outpatient Attender: ARPIT CADE DO Felicia/[place]/Pete/Reindl 12/02/2020 01:23:00 AM EDT [facility] ([facility]) Outpatient Attender: ARPIT CADE DO Felicia/[place]/Pete/Reindl 12/01/2020 01:23:00 AM EDT [facility] ([facility] [place] [address] [facility] [facility] [address] 10/17/2020 12:00:00 AM EDT eCW1 ([facility]) [place] [address] [facility] [facility] [address] 09/17/2020 12:00:00 AM EDT eCW1 ([facility]) [place] [address] [facility] [address] 09/16/2020 12:00:00 AM EDT eCW1 ([facility]) Outpatient [address] [facility] [address] 07/29/2020 12:00:00 AM EDT eCW1 ([facility]) Inpatient Attender: Oneyda Alan DAdmitter: Oneyda Santos MDConsultant: ALDEN WILD CPSCAORT-MSU2 07/05/2020 08:07:00 PM EDT - 07/10/2020 11:25:00 AM EDT COVID 19; ALCOHOL WITHDRAWAL [facility] COVID 19; ALCOHOL WITHDRAWAL Patient discharged. Emergency Attender: Nelson Williamson NP ED-ED 07/05 02:31:00 PM EDT - 07/05/2020 06:52:00 PM EDT DETOX [facility] DETOX Patient discharged. Outpatient Attender: WAQAS STEVENSON DO ED-LABPNP 07/05 01:03:00 PM EDT - 07/05/2020 01:04:00 PM EDT DETOX ADMISSION [facility] DETOX ADMISSION Patient discharged. [place] [address] [facility] [facility] [address] 06/20/2020 12:00:00 AM EDT eCW1 ([facility]) Unknown [address] [facility] [address] 06/13/2020 12:00:00 AM EDT eCW1 ([facility]) Outpatient [address] [facility] [address] 06/03/2020 12:00:00 AM EDT eCW1 ([facility]) Unknown [address] [facility] [facility] [address] 05/30/2020 12:00:00 AM EST eCW1 ([facility]) [facility] [address] [facility] [address] 05/12/2020 12:00:00 AM EST eCW1 ([facility]) Unknown [address] [facility] [address] 03/04/2020 12:00:00 AM EST eCW1 ([facility]) Outpatient [address] [facility] [address] 02/21/2020 12:00:00 AM EST eCW1 ([facility]) Unknown [address] [facility] [address] 02/06/2020 12:00:00 AM EST eCW1 ([facility]) Inpatient Attender: Cathy Garrett nder: CATHY HU MDAdmitter: Cathy Hu MD CPSCAORT-CHEPPDREH 01/24/2020 10:00:00 AM EST - 02/04/2020 09:14:00 AM EST PSYCHOACTIVE SUBSTANCE DEPENDENCE [facility] PSYCHOACTIVE SUBSTANCE DEPENDENCE Patient discharged. Outpatient Attender: RUFUS PERLA MD CPSCAORT-LABPNP 01/18/2020 1 2:20:00 PM EDT SCREENING [facility] SCREENING Inpatient Attender: RUFUS PERLA MDAdmitter: RUFUS PERLA MD ED-MSP 01/14/2020 07:35:00 PM EDT F10.20 [facility] F10.20 Patient admitted. Outpatient Attender: RUFUS PERLA MD CPSCAORT-LABEJN 01/14/2020 0 2:00:00 PM EDT VENEREAL DISEASE SCREENING [facility] VENEREAL DISEASE SCREENING Inpatient Attender: RUFUS PERLA MDAdmitter: RUFUS PERLA MD ED-MSP 01/14/2020 10:15:00 AM EDT - 01/22/2020 02:00:00 PM EST [facility] Inpatient Attender: RONALD Gan mesfin: TEX BECKER MDAdmitter: RONALD TANG MD ER-3RD 12/03/2019 10:58:00 PM EDT - [facility]12[facility] Immunizations Vaccine Date Status Description Data Source(s) COVID-19 VACCINE [employer] 06/18/2020 12:00:00 AM EDT completed [facility] Vaccine Series Complete: YESThis Data wa s Submitted to [facility] Via [facility]. COVID-19 VACCINE [employer] 05/28/2020 12:00:00 AM EST completed [facility] Vacc[facility] Series Complete: NOThis Data was Submitted to [facility] Via [employer]. Medications Medication Brand Name Start Date Product Form Dose Route Admi nistrative Instructions Pharmacy Instructions Status Indications Reaction Description Data Source(s) 1 mg 12/18/2020 12:00:00 AM EDT tablet 90 TAKE ONE TABLET BY MOUTH THREE TIMES A DAY MAXIMUM DAILY DOSE = 3 TAKE ONE TABLET BY MOUTH THREE TIMES A D AY MAXIMUM DAILY DOSE = 3 SOLD: 12/18/2020 [facility] buspirone hydrochloride 10 MG Oral Tablet [...] 03/04/2020 12:00:00 AM EST active Oxygen eCW1 ([facility]) Oxygen UNK 03/04/2020 12:00:00 AM EST active Oxygen eCW1 ([facility]) Oxygen UNK 03/04/2020 12:00:00 AM EST active eCW1 ([facility]) Oxygen UNK 03/04/2020 12:00:00 AM EST active Oxygen eCW1 ([facility]) Oxygen UNK 03/04/2020 12:00:00 AM EST active Oxygen eCW1 ([facility]) Oxygen UNK 03/04/2020 12:00:00 AM EST active Oxygen eCW1 ([facility]) Oxygen UNK 03/04/2020 12:00:00 AM EST active Oxygen eCW1 ([facility]) Oxygen UNK 03/04/2020 12:00:00 AM EST active Oxygen eCW1 ([facility]) Oxygen UNK 03/04/2020 12:00:00 AM EST active Oxygen eCW1 ([facility]) 1 mg 02/22/2020 12:00:00 AM EST tablet [...] MOUTH EVERY DAY AT 8PM. SOLD: 02/18/2020 [facility] 4 mg/actuation 02/04/2020 12:00:00 AM EST [...] tablet 30 TAKE ONE TABLET BY MOUTH JAIMIE DAY TAKE ONE TABLET BY MOUTH EVERY DAY SOLD: 11/25/2019 [facility] 75 mcg 07/20/2019 12:00:00 AM [...] type / Coverage type Policy ID Covered green party ID Covered green party's relationship to mckinney Policy [place] Plan Information MEDICARE [id number] SP [id number] A MEDICARE [id number] SP [id number] A MEDICARE [id number] SP [id number] A [facility] [id number] S [id number] [place] [id number] S [id number] [facility] MEDICARE DIVISION [id number] S [id number] [place]IC[place] [id number] S [id number] MEDICAID [id number] SP [id number] MEDICAID [id number] SP [id number] [facility] [id number] SP [id number] [facility] [id number] SP [id number] MEDICARE [id number] SP [id number] C51 [employer] [id number] S [id number] MEDICAID PROF FEES [id number] S [id number] MEDICAID [id number] S [id number] [facility] [id number] S [id number] MEDICAID PROF FEES [id number] S [id number] MCRB [id number] S [id number] C51 MEDICARE [id number] S [id number] C51 MEDICAID [id number] S [id number] Medicaid P UNAVAILABLE S UNAVAILA BLE MEDICAID [id number] SP [id number] [facility] Secure Horizons P [id number] S [id number] [facility] [id number] SP [id number] MEDICAID [id number] S [id number] [facility] DUAL COMPLET [id number] S [id number] MEDICARE [id number] SP [id number] A [facility] [id number] SP [id number] MEDICARE [id number] SP [id number] [id number] [facility] DUAL COMPLET [id number] S [id number] MEDICAID [id number] S [id number] [facility] MEDICARE DIVISION [id number] S [id number] [place]ICARE [place] [id number] S [id number] [facility] MEDICARE DIVISION [id number] S [id number] [place]ICARE [place] [id number] S [id number] Medicare S [id number] S [id number] ANSI-Medicaid [id number] ANSI-Not a Secondary Insurance [id number] ANSI-Not a Secondary Insurance [id number] ANSI-Medicaid [id number] ANSI-Medicaid [id number] ANSI-Medicare Part B [id number] ANSI-Medicaid [id number] MEDICAID [id number] S [id number] ANSI-Medicaid [id number] ANSI-Medicaid [id number] ANSI-Medicare Part B [id number] MEDICAID [id number] S [id number] Medicaid Medicaid [id number] S f [id number] Medicare Medicare Primary [id number] Self [id number] ANSI-Medicare Part B [id number] ANSI-Medicaid [id number] MEDICAID UNAVAILABLE S UNA[place]IL[place] BLE ANSI-Medicare Part B [id number] ANSI-Medicaid [id number] ANSI-Medicare Part B [id number] ANS-Medicaid [id number] Medicaid Medicaid [id number] S elf [id number] Medicare Medicare Primary [id number] Self [id number] ANS-Medicaid [id number] [facility]-Medicare Part B [id number] [facility]-Medicaid [id number] ANS-Medicare Part B [id number] [facility] [id number] ANSI-Medicare Part B [id number] ANS-Medicare Part B [id number] [facility]-Medicaid [id number] ANSI-Medicare Part B [id number] ANSI-Medicaid [id number] ANSI-Medicaid [id number] ANSI-Medicare Part B [id number] ANSI-Medicaid [id number] ANSI-Medicare Part B [id number] ANSI-Medicare Part B [id number] ANSI-Medicaid [id number] ANSI-Medicare Part B [id number] ANSI-Medicaid [id number] Medicaid Medigap Part B [id number] 5.0 Self [id number] Medicare (Part B) Medicare Primary [id number] Self 0 [id number] MEDICAID M [id number] S [id number] MEDICARE C [id number] S [id number] A Medicaid Medigap Part B [id number] 5.0 Self [id number] Medicare (Part B) Medicare Primary [id number] Self 0 [id number] Medicaid Medicaid [id number] S elf [id number] Medicare Medicare Primary [id number] Self [id number] MEDICARE [id number] SP [id number] A MEDICARE PART A-CLINIC [id number] 18 [id number] MEDICAID - CLINIC [id number] MEDICARE PART B-CLINIC [id number] MEDICARE COMPLETE [id number] SP [id number] [facility] [id number] SP [id number] [place] [id number] SP [id number] [id number] SP [id number] MEDICAID [id number] [facility] MEDICARE [id number] S [id number] MEDICARE [id number] S [id number] [facility] MEDICARE [id number] Unemployed [id number] MEDICAID [id number] Unemployed [id number] Problems, Conditions, and Diagnoses Code Display Name Description Problem Type Effective Dates Data Source(s) N40.0 Benign prostatic hyperplasia without low er urinary tract symptoms BENIGN PROSTATIC HYPERPLASIA WITHOUT LOWER URINRY TRACT SYMP Diagnosis [facility]05[facility] Hypothyroidism, unspecified HYPOTHYROIDISM, UNSPECIFIE D Diagnosis 07/05/2020 08:07:00 PM [facility] 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, hypnotic, or anxiolytic use, u nspecified, uncomplicated SEDATIVE, HYPNOTIC, OR ANXIOLYTIC USE, UNSP, UNCOMPLICATED Diagnosis 07/05/2020 08:07:[facility] F41.9 Anxiety disorder, unspecified ANXIETY DISORDER, UNSPEC IFIED Diagnosis 07/05/2020 08:07:00 PM [facility] F31.9 Bipolar disorder, unspecified BIPOLAR DISORDER, UNSPEC IFIED Diagnosis 07/05/2020 08:07:00 PM [facility] G40.909 Epilepsy, unspecified, not intractable, without status epilepticus EPILEPSY, UNSP, NOT INTRACTABLE, WITHOUT STATUS EPILEPTICUS Diagnosis 07/05/2020 08:07:00 PM [facility] I10 Essential (primary) hypertension ESSENTIAL (PRIMARY) H YPERTENSION Diagnosis 07/05/2020 08:07:00 PM [facility] F17.210 Nicotine dependence, cigarettes, uncompl icated NICOTINE DEPENDENCE, CIGARETTES, UNCOMPLICATED Diagnosis 07/05/2020 08:07:00 PM [facility] U07.1 COVID-19 COVID-19 Diagnosis 07/05/2020 08:07:00 PM ED [facility] F10.239 Alcohol dependence with withdrawal, unsp ecified ALCOHOL DEPENDENCE WITH WITHDRAWAL, UNSPECIFIED Diagnosis 07/05/2020 08:07:00 PM EDT [facility] U07.1 COVID-19 COVID-19 Diagnosis 07/05/2020 02:31:00 PM ED [facility] F10.139 ALCOHOL ABUSE WITH WITHDRAWAL, UNSPECIFI ED ALCOHOL ABUSE WITH WITHDRAWAL, UNSPECIFIED Diagnosis [facility] pain, unspecified CHEST PAIN, UNSPECIFIED Diagno sis 01/24/2020 10:00:00 AM [facility] I51.7 Cardiomegaly CARDIOMEGALY Diagnosis 01/24/2020 10:00:00 A M [facility] F60.3 Borderline personality disorder BORDERLINE PERSONALITY DISORDER Diagnosis 01/24/2020 10:00:00 AM [facility] F40.00 Agoraphobia, unspecified AGORAPHOBIA, UNSPECIFIED Diag nosis 01/24/2020 10:00:00 AM [facility] F41.1 Generalized anxiety disorder GENERALIZED ANXIETY DISOR MESFIN Diagnosis 01/24/2020 10:00:00 AM [facility] F42.9 Obsessive-compulsive disorder, unspecifi ed OBSESSIVE-COMPULSIVE DISORDER, UNSPECIFIED Diagnosis 01/24/2020 10:00:00 AM [facility] L21.9 Seborrheic dermatitis, unspecified SEBORRHEIC DE RMATITIS, UNSPECIFIED Diagnosis 01/24/2020 10:00:00 AM [facility] G44.009 Cluster headache syndrome, unspecified, not intractable CLUSTER HEADACHE SYNDROME, UNSPECIFIED, NOT INTRACTABLE Diagnosis 01/24/2020 10:00:00 A M [facility] F13.20 Sedative, hypnotic or anxiolytic depende nce, uncomplicated SEDATIVE, HYPNOTIC OR ANXIOLYTIC DEPENDENCE, UNCOMPLICATED Diagnosis 01/23 10:00:00 AM [facility] F11.20 Opioid dependence, uncomplicated OPIOID DEPENDEN CE, UNCOMPLICATED Diagnosis 01/24/2020 10:00:00 AM [facility] F10.20 Alcohol dependence, uncomplicated ALCOHOL DEPEND ENCE, UNCOMPLICATED Diagnosis 01/24/2020 10:00:00 AM [facility] F31.9 Bipolar disorder, unspecified BIPOLAR DISORDER, UNSPEC IFIED Diagnosis 01/14/2020 10:15:00 AM [facility] F13.10 Sedative, hypnotic or anxiolytic abuse, uncomplicated SEDATIVE, HYPNOTIC OR ANXIOLYTIC ABUSE, UNCOMPLICATED Diagnosis 01/14/2020 10:15:00 AM ED T [facility] Z60.8 Other problems related to social environ ment OTHER PROBLEMS RELATED TO SOCIAL ENVIRONMENT Diagnosis 01/14/2020 10:15:00 AM EDT [facility] reshma L30.9 Dermatitis, unspecified DERMATITIS, UNSPECIFIED Diagno sis 01/14/2020 10:15:00 AM [facility] F17.210 Nicotine dependence, cigarettes, uncompl icated NICOTINE DEPENDENCE, CIGARETTES, UNCOMPLICATED Diagnosis 01/14/2020 10:15:00 AM [facility] I10 Essential (primary) hypertension ESSENTIAL (PRIMARY) H YPERTENSION Diagnosis 01/14/2020 10:15:00 AM [facility] N40.0 Benign prostatic hyperplasia without low er urinary tract symptoms BENIGN PROSTATIC HYPERPLASIA WITHOUT LOWER URINRY TRACT SYMP Diagnosis 01/14/2020 10:15:00 AM [facility] G44.009 Cluster headache syndrome, unspecified, not intractable CLUSTER HEADACHE SYNDROME, UNSPECIFIED, NOT INTRACTABLE Diagnosis 01/14/2020 10:15:00 A M [facility] E03.9 Hypothyroidism, unspecified HYPOTHYROIDISM, UNSPECIFIE D Diagnosis 01/14/2020 10:15:00 AM [facility] F10.230 Alcohol dependence with withdrawal, unco mplicated ALCOHOL DEPENDENCE WITH WITHDRAWAL, UNCOMPLICATED Diagnosis 01/14/2020 10:15:00 AM [facility] R07.9 Chest pain, unspecified CHEST PAIN, UNSPECIFIED Diagno sis 12/03/2019 10:58:00 PM [facility] F10.20 Alcohol dependence, uncomplicated ALCOHOL DEPEND ENCE, UNCOMPLICATED Diagnosis 12/03/2019 10:58:00 PM [facility] F12.10 Cannabis abuse, uncomplicated CANNABIS ABUSE, UNCOMPLI CATED Diagnosis 12/03/2019 10:58:00 PM [facility] F17.200 Nicotine dependence, unspecified, uncomp licated NICOTINE DEPENDENCE, UNSPECIFIED, UNCOMPLICATED Diagnosis 12/03/2019 10:58:00 PM [facility] E03.9 Hypothyroidism, unspecified HYPOTHYROIDISM, UNSPECIFIE D Diagnosis 12/03/2019 10:58:00 PM [facility] I10 Essential (primary) hypertension ESSENTIAL (PRIMARY) H YPERTENSION Diagnosis 12/03/2019 10:58:00 PM [facility] K21.9 Gastro-esophageal reflux disease without esophagitis GASTRO-ESOPHAGEAL REFLUX DISEASE WITHOUT ESOPHAGIT Diagnosis 12/03/2019 10:58:00 PM [facility] E78.5 Hyperlipidemia, unspecified HYPERLIPIDEMIA, UNSPECIFIE D Diagnosis 12/03/2019 10:58:00 PM EDT [facility] N40.0 Benign prostatic hyperplasia without low er urinary tract symptoms BENIGN PROSTATIC HYPERPLASIA WITHOUT LOWER URINRY Diagnosis 12/03/2019 10:58: 00 PM EDT [facility] G44.009 Cluster headache syndrome, unspecified, not intractable CLUSTER HEADACHE SYNDROME, UNSPECIFIED, NOT INTRAC Diagnosis 12/03/2019 10:58:00 PM EDT [facility] Z91.5 Personal history of self-harm PERSONAL HISTORY OF SELF -HARM Diagnosis 12/03/2019 10:58:00 PM EDT [facility] F32.9 Major depressive disorder, single episod e, unspecified MAJOR DEPRESSIVE DISORDER, SINGLE EPISOD Diagnosis 12/03/2019 10:58:00 PM EDT [facility] F31.9 Bipolar disorder, unspecified BIPOLAR DISORDER, UNSPEC IFIED Diagnosis 12/03/2019 10:58:00 PM T [facility] Z12.5 Screening for malignant neoplasm of prostate [place] state cancer screening Problem 06/03/2020 12:00:00 AM EDT [email or web address] F10.21 [id number] Alcohol dependence in remission Problem 02/21/2020 12:00:00 AM EST eCW1 ([facility]) N40.0 Benign prostatic hypertrophy without out flow obstruction Benign prostatic hyperplasia without lower urinary tract symptoms Problem 02/20 12:00:00 AM EST eCW1 ([facility]) F11.21 Opioid dependence in remission Opioid dependence in re mission Problem 02/21/2020 12:00:00 AM EST eCW1 ([facility]) Surgeries/Procedures Procedure Description Date Indications Data Source(s) [facility] HOSPITAL CARE/DAY 25 MINUTES 12/03/2020 12:00:00 AM EDT [facility] ([facility]) CRITICAL CARE ILL/INJURED PATIENT INIT 30-74 MIN 12/02 12:00:00 AM EDT [facility] ([facility]) Ultrasound Guidance For Vascular Access Requiring Ultrasound Eval 12/02/2020 12:00:00 AM EDT [facility] ([facility]) Insertion Of Non-Tunneled Centrally Inserted Central Venous Kriss 12/02/2020 12:00:00 AM EDT [facility] ) INSJ/RPLCMT TEMP TRANSVNS 1CHMBR ELTRD/PM CATH 021 12:00:00 AM EDT [facility] ([facility], ) CRITICAL CARE ILL/INJURED PATIENT INIT 30-74 MIN 12/01 12:00:00 AM EDT [facility] ([facility], ) BLOOD COUNT COMPLETE AUTO&AUTO DIFRNTL WBC COUNT COMPLETE CB C W/AUTO DIFF WBC 07/05/2020 12:00:00 AM [facility] URNLS DIP STICK/TABLET RGNT AUTO W/O MICROSCOPY URINALYSIS A UTO W/O SCOPE 07/05/2020 12:00:00 AM [facility] [address]97 SARS-COV-2 COVID-19 AMP PRB 07/05/2020 12:00:00 AM [facility] 65678 ANALGESICS NON-OPIOID 1 OR 2 07/05/2020 12:00:00 AM ED [facility] ECG ROUTINE ECG W/LEAST 12 LDS TRCG ONLY W/O I&R ELECTROCARD IOGRAM TRACING 07/05/2020 12:00:00 AM [facility] [address]5970 X-RAY EXAM CHEST 1 VIEW 07/05/2020 12:00:00 AM [facility] EMERGENCY DEPT VISIT HIGH SEVERITY&THREAT FUNCJ EMERGENCY DE PT VISIT 07/05/2020 12:00:00 AM [facility] COMPREHENSIVE METABOLIC PANEL COMPREHEN METABOLIC PANEL 06/19 12:00:00 AM [facility] TROPONIN QUANTITATIVE ASSAY OF TROPONIN QUANT 07/05/2020 12:00:00 A M [facility] [id number] 07/05/2020 12:00:00 AM [facility] MAGNESIUM ASSAY OF MAGNESIUM 07/05/2020 12:00:00 AM [facility] 79214 DRUG TEST PRSMV DIR OPT OBS 07/05/2020 12:00:00 AM [facility] Group Counseling for Substance Abuse Treatment, Cognit adriana-Behavioral GROUP PRE PRESS PROOFER FOR SUBSTANCE ABUSE, COGNITIVE BEHAVIORAL 01/25/2020 12:00:00 AM [facility] Group Counseling for Substance Abuse Treatment, Spirit ual GROUP COUNSELING FOR SUBSTANCE ABUSE TREATMENT, SPIRITUAL 01/25/2020 12:00:00 AM [facility] Group Counseling for Substance Abuse Treatment, Motiva tional Enhancement GROUP PRE PRESS PROOFER FOR SUBSTANCE ABUSE, MOTIVATIONAL ENHANCE 01/25/2020 12:00:00 AM [facility] Individual Counseling for Substance Abuse Treatment, C ognitive-Behavioral INDIV PRE PRESS PROOFER FOR SUBSTANCE ABUSE, COGNITIVE BEHAVIORAL 01/25/2020 12:00:00 AM [facility] Measurement of Cardiac Rhythm, External Approach MEASU REMENT OF CARDIAC RHYTHM, EXTERNAL APPROACH 01/25/2020 12:00:00 AM [facility] Detoxification Services for Substance Abuse Treatment DETOXIFICATION SERVICES FOR SUBSTANCE ABUSE TREATMENT 01/16/2020 12:00:00 AM [facility] Individual Counseling for Substance Abuse Treatment, C ontinuing Care INDIV PRE PRESS PROOFER FOR SUBSTANCE ABUSE TREATMENT, CONTINUING CARE 01/16/2020 12:00:00 AM [facility] Psychological Tests, Neurobehavioral and Cognitive Status 12/04/2019 12:00:00 AM [facility] Results ID Date Data Source [id number] 12/01/2020 09:24:00 PM EDT [facility] Name Value Range Interpretation Code Description Data Lise rce(s) Supporting Document(s) SARS coronavirus 2 RNA [Presence] in Res piratory specimen by DANA with probe detection NEGATIVE [facility] This lab was ordered by [facility] a nd reported by [facility]. ID Date Data Source [id number] 10/26/2020 11:16:00 PM EDT [facility] Name Value Range Interpretation Code Description Data Lise rce(s) Supporting Document(s) SARS-CoV-2 (COVID 19) NEGATIVE - SARS-CoV-2 (COVID19) [facility] This lab was ordered by [facility] a nd reported by [facility]. ID Date Data Source [id number] 07/09[facility] Interpretation Code Description Data Lise rce(s) Supporting Document(s) White Blood Count 4.8-10.8 Normal (applies to non-numeri c results) [facility] Red Blood Count 4.35-6.08 Normal (applies to non-numeric results) [facility] Hemoglobin 13.0-17.5 Normal (applies to non-numeric resul ts) [facility] Hematocrit 37.7-51.0 Normal (applies to non-numeric resul ts) [facility] Mean Corpuscular Volume 80-94 Normal (applies to non- numeric results) [facility] Mean Corpuscular Hemoglobin 27.0-33.0 Normal (appli es to non-numeric results) [facility] Mean Corpuscular HGB Conc 32.0-36.0 Normal (applies to no n-numeric results) [facility] Red Cell Distribution Width 11.5-14.5 Normal (appli es to non-numeric results) [facility] Platelet Count 213 X10 3/uL 130-450 Normal (applies to non-numeric results) [facility] Mean Platelet Volume 9.6-13.1 Normal (applies to non-num wagner results) [facility] Imm Grans% (AUTO) 1 % 0-2 Normal (applies to non-numeri c results) [facility] Neutrophils % (AUTO) 57 % 40-75 Normal (applies to non-num wagner results) [facility] Lymphocytes % (AUTO) 30 % 21-46 Normal (applies to non-num wagner results) [facility] Monocytes % (AUTO) 8 % 5-12 Normal (applies to non-numer ic results) [facility] Eosinophils % (AUTO) 3 % 1-5 Normal (applies to non-num wagner results) [facility] Basophils % (AUTO) 1 % 0-1 Normal (applies to non-numer ic results) [facility] Imm Grans# (AUTO) 0.0-0.5 Normal (applies to non-numeri c results) [facility] Neutrophils # (AUTO) 1.5-8.1 Normal (applies to non-num wagner results) [facility] Lymphocytes # (AUTO) 1.0-3.1 Normal (applies to non-num wagner results) [facility] Monocytes # (AUTO) 0.2-1.3 Normal (applies to non-numer ic results) [facility] Eosinophils# (AUTO) 0.0-0.5 Normal (applies to non-nume milan results) [facility] Basophils # (AUTO) 0.0-0.1 Normal (applies to non-numer ic results) [facility] ID Date Data Source [id number] 07/09/2020 09:23:00 AM EDT [facility] Name Value Range Interpretation Code Description Data Lise rce(s) Supporting Document(s) Sodium 141 mmol/L 137-145 Normal (applies to non-numeric resul ts) [facility] Potassium 3.5-5.1 Normal (applies to non-numeric resul ts) [facility] Chloride 111 mmol/L 98-112 Normal (applies to non-numeric resul ts) [facility] Carbon Dioxide CO2 22.0-33.0 Normal (applies to non-numer ic results) [facility] Anion Gap 4.0-11.0 Below low normal [facility] BUN 14 mg/dL 9-20 Normal (applies to non-numeric resul ts) [facility] Creatinine 0.80-1.50 Below low normal [facility] GFR >60 Normal (applies to non-numeric results) [facility] Result based on MDRD formula. Glucose Level 113 mg/dL 74-99 Above high normal [facility] The reference range is only applicable w hen fasting. Calcium-Uncorrected 8.4-10.2 Normal (applies to non-nume milan results) [facility] Corrected Calcium 8.4-10.2 Normal (applies to non-numeri c results) [facility] Bilirubin,Total 0.2-1.3 Normal (applies to non-numeric results) [facility] SGOT(AST) 14 U/L 17-59 Below low normal [facility] SGPT(ALT) 81 U/L 21-72 Above high normal [facility] Alkaline Phosphatase 75 U/L 38-126 Normal (applies to non-num wagner results) [facility] can increase Alkaline Phosp le vels up to 2 times the normal adult value. Normal values for children and adolescents are 2 to 3 times the normal adult value. Total Protein 6.3-8.2 Normal (applies to non-numeric re sults) [facility] Albumin 3.5-5.0 Normal (applies to non-numeric resul ts) [facility] ID Date Data Source [id number] 07/09/2020 09:23:00 AM EDT [facility] Name Value Range Interpretation Code Description Data Lise rce(s) Supporting Document(s) C-Reactive Protein,Wide Range <3.00 Normal (applies t o non-numeric results) [facility] ID Date Data Source [id number] 07/08/2020 01:53:00 PM EDT [facility] Name Value Range Interpretation Code Description Data Lise rce(s) Supporting Document(s) White Blood Count 4.8-10.8 Above high normal [facility] Red Blood Count 4.35-6.08 Normal (applies to non-numeric results) [facility] Hemoglobin 13.0-17.5 Normal (applies to non-numeric resul ts) [facility] Hematocrit 37.7-51.0 Normal (applies to non-numeric resul ts) [facility] Mean Corpuscular Volume 80-94 Normal (applies to non- numeric results) [facility] Mean Corpuscular Hemoglobin 27.0-33.0 Normal (appli es to non-numeric results) [facility] Mean Corpuscular HGB Conc 32.0-36.0 Normal (applies to no n-numeric results) [facility] Red Cell Distribution Width 11.5-14.5 Normal (appli es to non-numeric results) [facility] Platelet Count 205 X10 3/uL 130-450 Normal (applies to non-numeric results) [facility] Mean Platelet Volume 9.6-13.1 Normal (applies to non-num wagner results) [facility] Imm Grans% (AUTO) 1 % 0-2 Normal (applies to non-numeri c results) [facility] Neutrophils % (AUTO) 78 % 40-75 Above high normal C [facility] Lymphocytes % (AUTO) 15 % 21-46 Below low normal Ca [facility] Monocytes % (AUTO) 5 % 5-12 Normal (applies to non-numer ic results) [facility] Eosinophils % (AUTO) 1 % 1-5 Normal (applies to non-num wagner results) [facility] Basophils % (AUTO) 0 % 0-1 Normal (applies to non-numer ic results) [facility] Imm Grans# (AUTO) 0.0-0.5 Normal (applies to non-numeri c results) [facility] Neutrophils # (AUTO) 1.5-8.1 Above high normal C [facility] Lymphocytes # (AUTO) 1.0-3.1 Normal (applies to non-num wagner results) [facility] Monocytes # (AUTO) 0.2-1.3 Normal (applies to non-numer ic results) [facility] Eosinophils# (AUTO) 0.0-0.5 Normal (applies to non-nume milan results) [facility] Basophils # (AUTO) 0.0-0.1 Normal (applies to non-numer ic results) [facility] ID Date Data Source [id number] 07/08/2020 10:17:00 AM EDT [facility] Name Value Range Interpretation Code Description Data Lise rce(s) Supporting Document(s) Sodium 141 mmol/L 137-145 Normal (applies to non-numeric resul ts) [facility] Potassium 3.5-5.1 Normal (applies to non-numeric resul ts) [facility] Chloride 109 mmol/L 98-112 Normal (applies to non-numeric resul ts) [facility] Carbon Dioxide CO2 22.0-33.0 Normal (applies to non-numer ic results) [facility] Anion Gap 4.0-11.0 Normal (applies to non-numeric resul ts) [facility] BUN 12 mg/dL 9-20 Normal (applies to non-numeric resul ts) [facility] Creatinine 0.80-1.50 Below low normal [facility] GFR >60 Normal (applies to non-numeric results) [facility] Result based on MDRD formula. Glucose Level 78 mg/dL 74-99 Normal (applies to non-numeric re sults) [facility] The reference range is only applicable w hen fasting. Calcium-Uncorrected 8.4-10.2 Normal (applies to non-nume milan results) [facility] Corrected Calcium 8.4-10.2 Normal (applies to non-numeri c results) [facility] Bilirubin,Total 0.2-1.3 Normal (applies to non-numeric results) [facility] SGOT(AST) 15 U/L 17-59 Below low normal [facility] SGPT(ALT) 91 U/L 21-72 Above high normal [facility] Alkaline Phosphatase 71 U/L 38-126 Normal (applies to non-num wagner results) [facility] can increase Alkaline Phosp le vels up to 2 times the normal adult value. Normal values for children and adolescents are 2 to 3 times the normal adult value. Total Protein 6.3-8.2 Normal (applies to non-numeric re sults) [facility] Albumin 3.5-5.0 Normal (applies to non-numeric resul ts) [facility] ID Date Data Source [id number] 07/08/2020 10:17:00 AM EDT [facility] Name Value Range Interpretation Code Description Data Lise rce(s) Supporting Document(s) Magnesium 1.80-2.40 Normal (applies to non-numeric resul ts) [facility] ID Date Data Source [id number] 07/08/2020 10:17:00 AM EDT [facility] Name Value Range Interpretation Code Description Data Lise rce(s) Supporting Document(s) C-Reactive Protein,Wide Range <3.00 Normal (applies t o non-numeric results) [facility] ID Date Data Source [id number] 07/07/2020 08:30:00 AM EDT [facility] Name Value Range Interpretation Code Description Data Lise rce(s) Supporting Document(s) White Blood Count 4.8-10.8 Normal (applies to non-numeri c results) [facility] Red Blood Count 4.35-6.08 Normal (applies to non-numeric results) [facility] Hemoglobin 13.0-17.5 Normal (applies to non-numeric resul ts) [facility] Hematocrit 37.7-51.0 Normal (applies to non-numeric resul ts) [facility] Mean Corpuscular Volume 80-94 Normal (applies to non- numeric results) [facility] Mean Corpuscular Hemoglobin 27.0-33.0 Normal (appli es to non-numeric results) [facility] Mean Corpuscular HGB Conc 32.0-36.0 Normal (applies to no n-numeric results) [facility] Red Cell Distribution Width 11.5-14.5 Normal (appli es to non-numeric results) [facility] Platelet Count 205 X10 3/uL 130-450 Normal (applies to non-numeric results) [facility] Mean Platelet Volume 9.6-13.1 Normal (applies to non-num wagner results) [facility] Imm Grans% (AUTO) 1 % 0-2 Normal (applies to non-numeri c results) [facility] Neutrophils % (AUTO) 55 % 40-75 Normal (applies to non-num wagner results) [facility] Lymphocytes % (AUTO) 35 % 21-46 Normal (applies to non-num wagner results) [facility] Monocytes % (AUTO) 7 % 5-12 Normal (applies to non-numer ic results) [facility] Eosinophils % (AUTO) 2 % 1-5 Normal (applies to non-num wagner results) [facility] Basophils % (AUTO) 1 % 0-1 Normal (applies to non-numer ic results) [facility] Imm Grans# (AUTO) 0.0-0.5 Normal (applies to non-numeri c results) [facility] Neutrophils # (AUTO) 1.5-8.1 Normal (applies to non-num wagner results) [facility] Lymphocytes # (AUTO) 1.0-3.1 Normal (applies to non-num wagner results) [facility] Monocytes # (AUTO) 0.2-1.3 Normal (applies to non-numer ic results) [facility] Eosinophils# (AUTO) 0.0-0.5 Normal (applies to non-nume milan results) [facility] Basophils # (AUTO) 0.0-0.1 Normal (applies to non-numer ic results) [facility] ID Date Data Source [id number] 07/07/2020 09:00:00 AM EDT [facility] Name Value Range Interpretation Code Description Data Lise rce(s) Supporting Document(s) Sodium 140 mmol/L 137-145 Normal (applies to non-numeric resul ts) [facility] Potassium 3.5-5.1 Normal (applies to non-numeric resul ts) [facility] Chloride 108 mmol/L 98-112 Normal (applies to non-numeric resul ts) [facility] Carbon Dioxide CO2 22.0-33.0 Normal (applies to non-numer ic results) [facility] Anion Gap 4.0-11.0 Normal (applies to non-numeric resul ts) [facility] BUN 13 mg/dL 9-20 Normal (applies to non-numeric resul ts) [facility] Creatinine 0.80-1.50 Below low normal [facility] GFR >60 Normal (applies to non-numeric results) [facility] Result based on MDRD formula. Glucose Level 78 mg/dL 74-99 Normal (applies to non-numeric re sults) [facility] The reference range is only applicable w hen fasting. Calcium-Uncorrected 8.4-10.2 Normal (applies to non-nume milan results) [facility] Corrected Calcium 8.4-10.2 Normal (applies to non-numeri c results) [facility] Bilirubin,Total 0.2-1.3 Normal (applies to non-numeric results) [facility] SGOT(AST) 30 U/L 17-59 Normal (applies to non-numeric resul ts) [facility] SGPT(ALT) 117 U/L 21-72 Above high normal [facility] Alkaline Phosphatase 73 U/L 38-126 Normal (applies to non-num wagner results) [facility] can increase Alkaline Phosp le vels up to 2 times the normal adult value. Normal values for children and adolescents are 2 to 3 times the normal adult value. Total Protein 6.3-8.2 Normal (applies to non-numeric re sults) [facility] Albumin 3.5-5.0 Normal (applies to non-numeric resul ts) [facility] ID Date Data Source [id number] 07/07/2020 09:00:00 AM EDT [facility] Name Value Range Interpretation Code Description Data Lise rce(s) Supporting Document(s) Magnesium 1.80-2.40 Normal (applies to non-numeric resul ts) [facility] ID Date Data Source [id number] 07/07/2020 09:00:00 AM EDT [facility] Value Range Interpretation Code Description Data Lise rce(s) Supporting Document(s) Ferritin 106 ng/mL 17.9-464.0 Normal (applies to non-numeric resul ts) [facility] ID Date Data Source [id number] 07/07/2020 09:00:00 AM EDT [facility] Value Range Interpretation Code Description Data Lise rce(s) Supporting Document(s) LDH 186 U/L 87-241 Normal (applies to non-numeric resul ts) [facility] ID Date Data Source [id number] 07/07/2020 09:00:00 AM EDT [facility] Value Range Interpretation Code Description Data Lise rce(s) Supporting Document(s) C-Reactive Protein,Wide Range <3.00 Normal (applies t o non-numeric results) [facility] ID Date Data Source [id number] 07/07/2020 08:55:00 AM EDT [facility] Value Range Interpretation Code Description Data Lise rce(s) Supporting Document(s) PT 9.4-12.5 Normal (applies to non-numeric results) [facility] INR Normal (applies to non-numeric results) [facility] The use of the INR is restricted to gene ents on stable oral anticoagulant. Therapeutic Range: 2.0-3.0 High Risk Values: 2.5-3.5 ID Date Data Source [id number] 07/07/2020 08:55:00 AM EDT [facility] Value Range Interpretation Code Description Data Lise rce(s) Supporting Document(s) PTT 25.1-36.5 Normal (applies to non-numeric resul ts) [facility] ID Date Data Source [id number] 07/07/2020 08:55:00 AM EDT [facility] Name Value Range Interpretation Code Description Data Lise rce(s) Supporting Document(s) D-Dimer Quant <500 Normal (applies to non-numeric re sults) [facility] Negative for D-Dimer. This test has f ull FDA exclusion claim at a Negative cutoff value of 500 ng/mL FEU. When the d-dimer value is used in conjunction with the clinical pretest probability (PTP) assessment model to exclude DVT and PE, results less than 500 ng/mL are negative for DVT/PE. ID Date Data Source [id number] 07/06/2020 07:31:00 AM EDT [facility] Name Value Range Interpretation Code Description Data Lise rce(s) Supporting Document(s) PT 9.4-12.5 Normal (applies to non-numeric results) [facility] INR Normal (applies to non-numeric results) [facility] The use of the INR is restricted to gene ents on stable oral anticoagulant. Therapeutic Range: 2.0-3.0 High Risk Values: 2.5-3.5 ID Date Data Source [id number] 07/06/2020 07:31:00 AM EDT [facility] Name Value Range Interpretation Code Description Data Lise rce(s) Supporting Document(s) PTT 25.1-36.5 Normal (applies to non-numeric resul ts) [facility] ID Date Data Source [id number] 07/06/2020 07:31:00 AM EDT [facility] Name Value Range Interpretation Code Description Data Lise rce(s) Supporting Document(s) D-Dimer Quant <500 Normal (applies to non-numeric re sults) [facility] Negative for D-Dimer. This test has f ull FDA exclusion claim at a Negative cutoff value of 500 ng/mL FEU. When the d-dimer value is used in conjunction with the clinical pretest probability (PTP) assessment model to exclude DVT and PE, results less than 500 ng/mL are negative for DVT/PE. ID Date Data Source [id number] 07/06/2020 07:11:00 AM EDT [facility] Name Value Range Interpretation Code Description Data Lise rce(s) Supporting Document(s) Sodium 141 mmol/L 137-145 Normal (applies to non-numeric resul ts) [facility] Potassium 3.5-5.1 Normal (applies to non-numeric resul ts) [facility] Chloride 109 mmol/L 98-112 Normal (applies to non-numeric resul ts) [facility] Carbon Dioxide CO2 22.0-33.0 Normal (applies to non-numer ic results) [facility] Anion Gap 4.0-11.0 Normal (applies to non-numeric resul ts) [facility] BUN 10 mg/dL 9-20 Normal (applies to non-numeric resul ts) [facility] Creatinine 0.80-1.50 Below low normal [facility] GFR >60 Normal (applies to non-numeric results) [facility] Result based on MDRD formula. Glucose Level 86 mg/dL 74-99 Normal (applies to non-numeric re sults) [facility] The reference range is only applicable w hen fasting. Calcium-Uncorrected 8.4-10.2 Normal (applies to non-nume milan results) [facility] Corrected Calcium 8.4-10.2 Normal (applies to non-numeri c results) [facility] Bilirubin,Total 0.2-1.3 Normal (applies to non-numeric results) [facility] SGOT(AST) 28 U/L 17-59 Normal (applies to non-numeric resul ts) [facility] SGPT(ALT) 108 U/L 21-72 Above high normal [facility] Alkaline Phosphatase 74 U/L 38-126 Normal (applies to non-num wagner results) [facility] can increase Alkaline Phosp le vels up to 2 times the normal adult value. Normal values for children and adolescents are 2 to 3 times the normal adult value. Total Protein 6.3-8.2 Normal (applies to non-numeric re sults) [facility] Albumin 3.5-5.0 Normal (applies to non-numeric resul ts) [facility] ID Date Data Source [id number] 07/06/2020 07:11:00 AM EDT [facility] Name Value Range Interpretation Code Description Data Lise rce(s) Supporting Document(s) Ferritin 99 ng/mL 17.9-464.0 Normal (applies to non-numeric resul ts) [facility] ID Date Data Source [id number] 07/06/2020 07:11:00 AM EDT [facility] Name Value Range Interpretation Code Description Data Lise rce(s) Supporting Document(s) LDH 169 U/L 87-241 Normal (applies to non-numeric resul ts) [facility] ID Date Data Source [id number] 07/06/2020 07:11:00 AM EDT [facility] Name Value Range Interpretation Code Description Data Lise rce(s) Supporting Document(s) C-Reactive Protein,Wide Range <3.00 Normal (applies t o non-numeric results) [facility] ID Date Data Source [id number] 07/06/2020 07:18:00 AM EDT [facility] Name Value Range Interpretation Code Description Data Lise rce(s) Supporting Document(s) White Blood Count 4.8-10.8 Normal (applies to non-numeri c results) [facility] Red Blood Count 4.35-6.08 Normal (applies to non-numeric results) [facility] Hemoglobin 13.0-17.5 Normal (applies to non-numeric resul ts) [facility] Hematocrit 37.7-51.0 Normal (applies to non-numeric resul ts) [facility] Mean Corpuscular Volume 80-94 Normal (applies to non- numeric results) [facility] Mean Corpuscular Hemoglobin 27.0-33.0 Normal (appli es to non-numeric results) [facility] Mean Corpuscular HGB Conc 32.0-36.0 Normal (applies to no n-numeric results) [facility] Red Cell Distribution Width 11.5-14.5 Normal (appli es to non-numeric results) [facility] Platelet Count 217 X10 3/uL 130-450 Normal (applies to non-numeric results) [facility] Mean Platelet Volume 9.6-13.1 Normal (applies to non-num wagner results) [facility] Imm Grans% (AUTO) 1 % 0-2 Normal (applies to non-numeri c results) [facility] Neutrophils % (AUTO) 58 % 40-75 Normal (applies to non-num wagner results) [facility] Lymphocytes % (AUTO) 31 % 21-46 Normal (applies to non-num wagner results) [facility] Monocytes % (AUTO) 7 % 5-12 Normal (applies to non-numer ic results) [facility] Eosinophils % (AUTO) 2 % 1-5 Normal (applies to non-num wagner results) [facility] Basophils % (AUTO) 1 % 0-1 Normal (applies to non-numer ic results) [facility] Imm Grans# (AUTO) 0.0-0.5 Normal (applies to non-numeri c results) [facility] Neutrophils # (AUTO) 1.5-8.1 Normal (applies to non-num wagner results) [facility] Lymphocytes # (AUTO) 1.0-3.1 Normal (applies to non-num wagner results) [facility] Monocytes # (AUTO) 0.2-1.3 Normal (applies to non-numer ic results) [facility] Eosinophils# (AUTO) 0.0-0.5 Normal (applies to non-nume milan results) [facility] Basophils # (AUTO) 0.0-0.1 Normal (applies to non-numer ic results) [facility] ID Date Data Source [id number] 07/05/2020 10:53:00 PM EDT [facility] Methodology: Isothermal Nucleic Aci d Amplification Reference [...] rce(s) Supporting Document(s) ID Date Data Source [id number] 07/05/2020 08:58:00 PM EDT [facility] Name Value Range Interpretation Code Description Data Lise rce(s) Supporting Document(s) Fibrinogen 290 mg/dL 173-454 Normal (applies to non-numeric resul ts) [facility] ID Date Data Source [id number] 07/05/2020 09:23:00 PM EDT [facility] MB if CPK is elevated? Y MB if CPK is elevated? Y Name Value Range Interpretation Code Description Data Lise rce(s) Supporting Document(s) CPK 132 U/L 39-308 Normal (applies to non-numeric resul ts) [facility] ID Date Data Source [id number] 07/05/2020 09:23:00 PM EDT [facility] MB if CPK is elevated? Y MB if CPK is elevated? Y Name Value Range Interpretation Code Description Data Lise rce(s) Supporting Document(s) B-Type Natriuretic Peptide BNP 22 pg/mL <125 N ormal (applies to non-numeric results) [facility] NT-proBNP values less than 300 pg/mL [...] acute congestive failure. ID Date Data Source [id number] 07/05/2020 09:20:00 PM EDT [facility] Name Value Range Interpretation Code Description Data Lise rce(s) Supporting Document(s) Troponin I 0.000-0.045 Normal (applies to non-numeric resu lts) [facility] ID Date Data Source [id number] 07/05/2020 10:06:00 PM EDT [facility] Name Value Range Interpretation Code Description Data Lise rce(s) Supporting Document(s) BLOOD TYPE PATIENT O Positive Normal (applies to non-numer ic results) [facility] ANTIBODY SCREEN NEGATIVE Normal (applies to non-numeric results) [facility] ID Date Data Source [id number] 07/05/2020 09:36:00 PM EDT [facility] Name Value Range Interpretation Code Description Data Lise rce(s) Supporting Document(s) Procalcitonin 0.00-0.24 Normal (applies to non-numeric re sults) [facility] 1.Risk of Progression to severe sepsis [...] therapy is warranted. ID Date Data Source [id number] 07/07/2020 05:24:00 AM T [facility] Imaging Services Department Imaging Report [address] [place] [id number] %(RAD)RES..mtdd.print.filter("line") Name: CORONA VALDES : 1975 Age/Sex: 45M Ordering Provider: Nelson Williamson NP Med Rec #: [id number] Reg Status: [facility] Room #: Date of Service: 07/05/20 Report Number: [id number] cc:PCP None Send Report To: [id number] XRP/XR Chest Xray Portable Reason for exam: [...] Date/Time: 07/05/20 1552 Transcribed Date/Time: 07/07/20 0524 Dust Control Engineer: MOHAMUD Name Value Range Interpretation Code Description Data [facility] rce(s) Supporting Document(s) ID Date Data Source [id number] 07/05/2020 05:06:00 PM EDT [facility] Collected By: Nurse Initials: cs Time Collected: 1531 Name Value Range Interpretation Code Description Data Lise rce(s) Supporting Document(s) Color,Urine Colorl-Dk Y Normal (applies to non-numeric res ults) [facility] Clarity,Urine Clear Normal (applies to non-numeric re sults) [facility] Specific [place],Urine 1.005-1.030 Normal (applies to non- numeric results) [facility] pH,Urine 5.0-8.0 Normal (applies to non-numeric resul ts) [facility] Protein,Urine Negative Normal (applies to non-numeric re sults) [facility] Glucose,Urine Negative Normal (applies to non-numeric re sults) [facility] Ketones,[facility] Negative [facility],U[facility] Negative Normal (applies to non-numeric resu lts) [facility] Bilirubin,Urine Negative Normal (applies to non-numeric results) [facility] Urobilinogen,Urine 0.2-1.0 Normal (applies to non-numer ic results) [facility] Leukocyte Esterase,Urine Negative Normal (applies to non -numeric results) [facility] Nitrite,Urine Negative Normal (applies to non-numeric re sults) [facility] ID Date Data Source [id number] 07/05/2020 03:39:00 PM EDT [facility] Name Value Range Interpretation Code Description Data Lise rce(s) Supporting Document(s) White Blood Count 3.5-10.5 Normal (applies to non-numeri c results) [facility] Red Blood Count 4.30-5.70 Normal (applies to non-numeric results) [facility] Hemoglobin 13.5-17.5 Normal (applies to non-numeric resul ts) [facility] Hematocrit 38.8-50.0 Normal (applies to non-numeric resul ts) [facility] Mean Corpuscular Volume 81.2-95.1 Normal (applies to non- numeric results) [facility] Mean Corpuscular Hgb 25.6-32.2 Normal (applies to non-num wagner results) [facility] Mean Corpuscular Hgb Conc 32.0-36.0 Normal (applies to no n-numeric results) [facility] Red Cell Distribution Width 11.8-15.6 Normal (appli es to non-numeric results) [facility] Platelet Count 219 x10 3/uL 150-450 Normal (applies to non-numeric results) [facility] Mean Platelet Volume 9.4-12.4 Normal (applies to non-num wagner results) [facility] Neutrophils% (Auto) 31.0-71.0 Above high normal [facility] Lymphocytes% (Auto) 20.0-55.0 Below low normal [facility] Monocytes% (Auto) 4.0-12.0 Normal (applies to non-numeri c results) [facility] Eosinophils% (Auto) 1.0-8.0 Below low normal [facility] Basophils% (Auto) 0.0-2.0 Normal (applies to non-numeri c results) [facility] Immature Granulocytes% (Auto) 0.0-2.0 Normal (jluis lies to non-numeric results) [facility] Neutrophils# (Auto) 1.50-6.20 Above high normal [facility] Lymphocytes# (Auto) 1.20-4.00 Normal (applies to non-nume milan results) [facility] Monocytes# (Auto) 0.00-0.90 Normal (applies to non-numeri c results) [facility] Eosinophils# (Auto) 0.00-0.50 Normal (applies to non-nume milan results) [facility] Basophils# (Auto) 0.00-0.20 Normal (applies to non-numeri c results) [facility] Immature Granulocytes# (Auto) 0.00-7.00 No rmal (applies to non-numeric results) [facility] ID Date Data Source [id number] 07/05/2020 04:58:00 PM EDT [facility] Name Value Range Interpretation Code Description Data Lise rce(s) Supporting Document(s) Ethanol Less than 10.0 Normal (applies to non-numeric r esults) [facility] ID Date Data Source [id number] 07/05/2020 05:26:00 PM EDT [facility] Name Value Range Interpretation Code Description Data Lise rce(s) Supporting Document(s) Sodium 141 mmol/L 136-145 Normal (applies to non-numeric resul ts) [facility] Potassium 3.5-5.1 Normal (applies to non-numeric resul ts) [facility] Chloride 102 mmol/L 98-107 Normal (applies to non-numeric resul ts) [facility] Carbon Dioxide CO2 21-32 Normal (applies to non-numer ic results) [facility] Anion Gap 5.0-16.0 Normal (applies to non-numeric resul ts) [facility] BUN 10 mg/dL 7-18 Normal (applies to non-numeric results) [facility] Creatinine,Serum 0.8-1.5 Below low normal [facility] GFR >60 Normal (applies to non-numeric results) [facility] Glucose Level 94 mg/dL 60-99 Normal (applies to non-numeric re sults) [facility] Reference range is only applicable when patient is fasting Note the following drug interference: Sulfasalazine Sulfapyridine Can see falsely depressed Can see falsely elevated result with up to 17% results with up to 11% decrease in measurement increase in measurement Recommend patients be collected for this test prior to administration of either drug. Calcium 8.5-10.1 Normal (applies to non-numeric resul ts) [facility] Bilirubin,Total 0.1-1.9 Normal (applies to non-numeric results) [facility] SGOT(AST) 20 U/L 15-37 Normal (applies to non-numeric resul ts) [facility] Note the following drug interference: Sulfasalazine Sulfapyridine Can see falsely depressed Can see falsely elevated result with up to 10% results with up to 10% decrease in measurement increase in measurement Recommend patients be collected for this test prior to administration of either drug. SGPT(ALT) 107 U/L 12-78 Above high normal [facility] Note the following drug interference: Sulfasalazine Sulfapyridine Can see falsely depressed Can see falsely elevated result with up to 29% results with up to 10% decrease in measurement increase in measurement Recommend patients be collected for this test prior to administration of either drug. Alkaline Phosphatase 91 U/L 38-126 Normal (applies to non-num wagner results) [facility] can increase Alkaline Phosp le vels up to 2 times the normal adult value. Normal values for children and adolescents are 2 to 3 times the normal adult value. Total Protein 6.0-8.2 Normal (applies to non-numeric re sults) [facility] Albumin Level 3.4-5.0 Normal (applies to non-numeric re sults) [facility] ID Date Data Source [id number] 07/05/2020 05:26:00 PM EDT [facility] Name Value Range Interpretation Code Description Data Lise rce(s) Supporting Document(s) Troponin I 0.000-0.056 Normal (applies to non-numeric resu lts) [facility] ID Date Data Source [id number] 07/05/2020 05:26:00 PM EDT [facility] Name Value Range Interpretation Code Description Data Lise rce(s) Supporting Document(s) Magnesium 1.8-2.4 Normal (applies to non-numeric resul ts) [facility] ID Date Data Source [id number] 07/05/2020 05:26:00 PM EDT [facility] Name Value Range Interpretation Code Description Data Lise rce(s) Supporting Document(s) Salicylate 2.8-20.0 Normal (applies to non-numeric resul ts) [facility] ID Date Data Source [id number] 07/05/2020 05:26:00 PM EDT [facility] Name Value Range Interpretation Code Description Data Lise rce(s) Supporting Document(s) Acetaminophen 10.0-30.0 Below low normal [facility] ID Date Data Source [id number] 07/05/2020 05:09:00 PM EDT [facility] Name Value Range Interpretation Code Description Data Lise rce(s) Supporting Document(s) UDS Benzodiazepines Screen Negative Normal (applies to n on-numeric results) [facility] UDS Cocaine Screen Negative Normal (applies to non-numer ic results) [facility] UDS Ampetamine Screen Negative Normal (applies to non-nu meric results) [facility] UDS Cannabinoids Screen Negative Normal (applies to non- numeric results) [facility] UDS Opiates Screen Negative Normal (applies to non-numer ic results) [facility] UDS Barbiturates Screen Negative Normal (applies to non- numeric results) [facility] Threshold Levels Benzodiazepine 200 ng/mL Cocaine 300 ng/mL Amphetamines 1000 ng/mL Cannabinoids (THC) 50 ng/mL Opiates 300 ng/mL Barbiturates 200 ng/mL All positive findings are presumptive and unconfirmed. Confirmation of positive results are performed only at request of provider. Unconfirmed results must not be used for non-medical purposes (i.e. preemployment and legal purposes) ID Date Data Source [id number] 07/05/2020 12:45:00 PM EDT [facility] Name Value Range Interpretation Code Description Data Lise rce(s) Supporting Document(s) Respiratory specimen severe acute respir atory syndrome coronavirus 2 (SARS-CoV-2) RNA Positive (qualifier value) [place] [facility] and reported by . ID Date Data Source [id number] 07/05/2020 01:24:00 PM EDT [facility] First test? NOEmployed in healthcare? NOSymptomatic per CDC? NOHospitalized? NOICU? NOResident in congregated care? ex penitentiary, [facility] NO? NO Name Value Range Interpretation Code Description Data Lise rce(s) Supporting Document(s) SARS-CoV-2 RNA Negative oMnty [facility] Positive results do not rule out bacteri [...] of Accreditation. Factsheets for healthcare providers: https:/ /www.fda.gov/media/244824/download Factsheets for patients: https://www.fda.gov/media/332727/download The ID NOW Instrument is a rapid molecular in vitro diagnostic test utilizing an isothermal nucleic acid amplification technology intended for the qualitative detection of nucleic acid from the SARS-CoV-2 viral RNA. THIS IS A STATE REPORTABLE COMMUNICABLE DISEASE. Results called 07/05/201322,JOHNNY SMITH read back information to BO Manual entry verified by Ameena Castro 07/05/201322 ID Date Data Source [id number] 03/01/2020 05:10:00 PM EST [facility] Name Value Range Interpretation Code Description Data Lise rce(s) Supporting Document(s) SARS coronavirus 2 RNA [Presence] in Res piratory specimen by DANA with probe detection [facility] This lab was ordered by [facility] a nd reported by [facility]. ID Date Data Source [id number] 03/03/2020 03:29:00 PM EST [facility] Name Value Range Interpretation Code Description Data Lise rce(s) Supporting Document(s) Sodium 142 mmol/L 137-145 Normal (applies to non-numeric resul ts) [facility] Potassium 3.5-5.1 Normal (applies to non-numeric resul ts) [facility] Chloride 110 mmol/L 98-112 Normal (applies to non-numeric resul ts) [facility] Carbon Dioxide CO2 22.0-33.0 Normal (applies to non-numer ic results) [facility] Anion Gap 4.0-11.0 Normal (applies to non-numeric resul ts) [facility] BUN 14 mg/dL 9-20 Normal (applies to non-numeric resul ts) [facility] Creatinine 0.80-1.50 Normal (applies to non-numeric resul ts) [facility] GFR >60 Normal (applies to non-numeric results) [facility] Result based on MDRD formula. Glucose Level 72 mg/dL 74-99 Below low normal [facility] The reference range is only applicable w hen fasting. Calcium-Uncorrected 8.4-10.2 Normal (applies to non-nume milan results) [facility] Corrected Calcium 8.4-10.2 Normal (applies to non-numeri c results) [facility] Bilirubin,Total 0.2-1.3 Normal (applies to non-numeric results) [facility] SGOT(AST) 7 U/L 17-59 Below low normal [facility] SGPT(ALT) 41 U/L 21-72 Normal (applies to non-numeric resul ts) [facility] Alkaline Phosphatase 64 U/L 38-126 Normal (applies to non-num wagner results) [facility] can increase Alkaline Phosp le vels up to 2 times the normal adult value. Normal values for children and adolescents are 2 to 3 times the normal adult value. Total Protein 6.3-8.2 Normal (applies to non-numeric re sults) [facility] Albumin 3.5-5.0 Normal (applies to non-numeric resul ts) [facility] ID Date Data Source [id number] 02/15/2020 01:42:00 PM [facility] Name: CORONA VALDES : 1975 Age/Sex: 44M Ordering Provider: KATHY Kilgore Med Rec #: [id number] Reg Status:DIS IN Room #: 132-2 Date of Service: 01/25/20 Report Number: [id number] cc: KATHY Kilgore; Cathy Hu MD Send Report To: Reason for exam: intermittent chest pain history of prolonged QT-interval Please refer to EMR to view scanned EKG tracing, report and dictating providers signature.02/15/2020 1343 MJS REPORT SIGNATURE ON FILE 02/15/20 1343 Reported By: Amy Zimmerman RN Exam Date/Time: 01/25/20 0600 Order #: [id number] Dictation Date/Time: 02/15/20 1343 Transcribed Date/Time: 02/15/20 1342 Dust Control Engineer: MARIELOS Name Value Range Interpretation Code Description Data Lise rce(s) Supporting Document(s) ID Date Data Source [id number] 03/04/2020 01:23:00 AM [facility] Name Value Range Interpretation Code Description Data Lise rce(s) Supporting Document(s) Hep C Ab-T Test Nonreactive Normal (applies to non-numeric results) [facility] Hep Bs Ag Result T-Test Nonreactive Normal (applies to non -numeric results) [facility] HBCT Nonreactive Normal (applies to non-numeric resu lts) [facility] HAVM Nonreactive Normal (applies to non-numeric resu lts) [facility] ID Date Data Source [id number] 03/04/2020 01:23:00 AM [facility] Name Value Range Interpretation Code Description Data Lise rce(s) Supporting Document(s) Vitamin D,Total (25OH) 30.0-100.0 Below low normal [facility] Manual entry verified by Shama Valencia 1931 Reference Range: <10 ng/mL: Deficient 10-30 ng/mL: Insufficient 30-100 ng/mL: Sufficient >100 ng/mL: Toxicity possible ID Date Data Source [id number] 03/04/2020 01:23:00 AM [facility] Name Value Range Interpretation Code Description Data Lise rce(s) Supporting Document(s) Syphilis Serology Nonreactive Normal (applies to non-numer ic results) [facility] ID Date Data Source [id number] 03/04/2020 01:23:00 AM EST [facility] Name Value Range Interpretation Code Description Data Lise rce(s) Supporting Document(s) Sodium 140 mmol/L 137-145 Normal (applies to non-numeric resul ts) [facility] Potassium 3.5-5.1 Normal (applies to non-numeric resul ts) [facility] Chloride 108 mmol/L 98-112 Normal (applies to non-numeric resul ts) [facility] Carbon Dioxide CO2 22.0-33.0 Normal (applies to non-numer ic results) [facility] Anion Gap 4.0-11.0 Normal (applies to non-numeric resul ts) [facility] BUN 18 mg/dL 9-20 Normal (applies to non-numeric resul ts) [facility] Creatinine 0.80-1.50 Normal (applies to non-numeric resul ts) [facility] GFR 87 mL/min >60 Normal (applies to non-numeric resul ts) [facility] Result based on MDRD formula. Glucose Level 88 mg/dL 74-99 Normal (applies to non-numeric re sults) [facility] The reference range is only applicable w hen fasting. Calcium-Uncorrected 8.4-10.2 Normal (applies to non-nume milan results) [facility] Corrected Calcium 8.4-10.2 Normal (applies to non-numeri c results) [facility] Bilirubin,Total 0.2-1.3 Normal (applies to non-numeric results) [facility] SGOT(AST) 12 U/L 17-59 Below low normal [facility] SGPT(ALT) 62 U/L 21-72 Normal (applies to non-numeric resul ts) [facility] Alkaline Phosphatase 69 U/L 38-126 Normal (applies to non-num wagner results) [facility] can increase Alkaline Phosp le vels up to 2 times the normal adult value. Normal values for children and adolescents are 2 to 3 times the normal adult value. Total Protein 6.3-8.2 Normal (applies to non-numeric re sults) [facility] Albumin 3.5-5.0 Normal (applies to non-numeric resul ts) [facility] ID Date Data Source [id number] 03/04/2020 01:23:00 AM EST [facility] Name Value Range Interpretation Code Description Data Lise rce(s) Supporting Document(s) Thyroid Stimulate Hormone TSH 0.358-3.740 No rmal (applies to non-numeric results) [facility] ID Date Data Source [id number] 03/04/2020 01:23:00 AM EST [facility] Name Value Range Interpretation Code Description Data Lise rce(s) Supporting Document(s) C-Reactive Protein,Wide Range <3.00 Normal (applies t o non-numeric results) [facility] ID Date Data Source [id number] 03/04/2020 01:23:00 AM [facility] Name Value Range Interpretation Code Description Data Lise rce(s) Supporting Document(s) hsCRP CARDIAC 0.00-3.00 Normal (applies to non-numeric re sults) [facility] ID Date Data Source [id number] 03/04/2020 01:23:00 AM [facility] Name Value Range Interpretation Code Description Data Lise rce(s) Supporting Document(s) White Blood Count 4.8-10.8 Normal (applies to non-numeri c results) [facility] Red Blood Count 4.35-6.08 Normal (applies to non-numeric results) [facility] Hemoglobin 13.0-17.5 Normal (applies to non-numeric resul ts) [facility] Hematocrit 37.7-51.0 Normal (applies to non-numeric resul ts) [facility] Mean Corpuscular Volume 80-94 Normal (applies to non- numeric results) [facility] Mean Corpuscular Hemoglobin 27.0-33.0 Normal (appli es to non-numeric results) [facility] Mean Corpuscular HGB Conc 32.0-36.0 Normal (applies to no n-numeric results) [facility] Red Cell Distribution Width 11.5-14.5 Normal (appli es to non-numeric results) [facility] Platelet Count 226 X10 3/uL 130-450 Normal (applies to non-numeric results) [facility] Mean Platelet Volume 9.6-13.1 Normal (applies to non-num wagner results) [facility] Imm Grans% (AUTO) 1 % 0-2 Normal (applies to non-numeri c results) [facility] Neutrophils % (AUTO) 70 % 40-75 Normal (applies to non-num wagner results) [facility] Lymphocytes % (AUTO) 22 % 21-46 Normal (applies to non-num wagner results) [facility] Monocytes % (AUTO) 7 % 5-12 Normal (applies to non-numer ic results) [facility] Eosinophils % (AUTO) 1 % 1-5 Normal (applies to non-num wagner results) [facility] Basophils % (AUTO) 0 % 0-1 Normal (applies to non-numer ic results) [facility] Imm Grans# (AUTO) 0.0-0.5 Normal (applies to non-numeri c results) [facility] Neutrophils # (AUTO) 1.5-8.1 Normal (applies to non-num wagner results) [facility] Lymphocytes # (AUTO) 1.0-3.1 Normal (applies to non-num wagner results) [facility] Monocytes # (AUTO) 0.2-1.3 Normal (applies to non-numer ic results) [facility] Eosinophils# (AUTO) 0.0-0.5 Normal (applies to non-nume milan results) [facility] Basophils # (AUTO) 0.0-0.1 Normal (applies to non-numer ic results) [facility] ID Date Data Source [id number] 02/06/2020 04:26:00 PM EST [facility] Name Value Range Interpretation Code Description Data Lise rce(s) Supporting Document(s) Chlamydia,Urine result Normal (applies to non-n umeric results) [facility] GC Urine result Normal (applies to non-numeric results) [facility] ID Date Data Source [id number] 10/13/2020 04:18:00 PM EDT [facility] COVID-19 Patient Ethnicity Not or LatinoCOVID-19 Patient Race WhiteCOVID-19 Specimen Source Nasopharyngeal Name Value Range Interpretation Code Description Data Lise rce(s) Supporting Document(s) SARS-CoV-2 Specimen Source Normal (applies to n on-numeric results) [facility] SARS-CoV-2 RNA Undetected Normal (applies to non-numeric r esults) [facility] SARS-CoV-2 RNA absent. This result does not rule out COVID-19 in the patient, as the sensitivity of the test depends on the timing of the specimen collection and the quality of the specimen. Result should be correlated with patient's history and clinical presentation. Patient Race Normal (applies to non-numeric res ults) [facility] Patient Ethnicity Normal (applies to non-numeri c results) [facility] Method Summary Normal (applies to non-numeric r esults) [facility] PKELM- This test uses the [employer] Ne w Coronavirus Nucleic Acid Detection Kit ([employer] and is performed on the GeoQuip instrument and [employer] [place] 7500 Fast Real-Time PCR System. It has received Emergency Use Authorization (EUA) by the U.S. Food and Drug Administration, and is modified from the hi lift operator's instructions with a bridging study. Performance characteristics were verified by [facility] in a manner consistent with CLIA requirements. Fact sheets for this Emergency Use Authorization (EUA) can be found at the following links: https://www.fda.gov/media/976426/download for Healthcare Providers https://www.fda.gov/media/921445/download for Patients Test Performed by: [address] [address] [employer]: Boni Ramirez M.D. Ph.D.; IA# [id number] ID Date Data Source [id number] 01/29/2020 10:21:00 AM EST [facility] COVID-19 Patient Ethnicity Not or LatinoCOVID-19 Patient Race WhiteCOVID-19 Specimen Source Nasopharyngeal Name Value Range Interpretation Code Description Data Lise rce(s) Supporting Document(s) SARS-CoV-2 Specimen Source Normal (applies to n on-numeric results) [facility] SARS-CoV-2 RNA Normal (applies to non-numeric r esults) [facility] Patient Race Normal (applies to non-numeric result s) [facility] Not or LatinoSee scanned report ID Date Data Source [id number] 01/14/2020 09:49:00 PM EDT [facility] Collected By: Nurse Initials: LAURIEK Time Collected: 2114 Name Value Range Interpretation Code Description Data Lise rce(s) Supporting Document(s) Color,Urine Colorl-Dk Y Normal (applies to non-numeric res ults) [facility] Clarity,Urine Clear Normal (applies to non-numeric re sults) [facility] Specific [place],Urine 1.005-1.030 Normal (applies to non- numeric results) [facility] pH,Urine 5.0-8.0 Normal (applies to non-numeric resul ts) [facility] Protein,Urine Negative Normal (applies to non-numeric re sults) [facility] Glucose,Urine Negative Normal (applies to non-numeric re sults) [facility] Ketones,Urine Negative [facility] Blood,Urine Negative Normal (applies to non-numeric resu lts) [facility] Bilirubin,Urine Negative Normal (applies to non-numeric results) [facility] Urobilinogen,Urine 0.2-1.0 Normal (applies to non-numer ic results) [facility] Leukocyte Esterase,Urine Negative Normal (applies to non -numeric results) [facility] Nitrite,Urine Negative Normal (applies to non-numeric re sults) [facility] ID Date Data Source [id number] 01/14/2020 10:08:00 PM EDT [facility] Name Value Range Interpretation Code Description Data Lise rce(s) Supporting Document(s) UDS Phencyclidine Screen Negative Normal (applies to non -numeric results) [facility] UDS Benzodiazepines Screen Negative Normal (applies to n on-numeric results) [facility] UDS Cocaine Screen Negative Normal (applies to non-numer ic results) [facility] UDS Ampetamine Screen Negative Normal (applies to non-nu meric results) [facility] UDS Cannabinoids Screen Negative [facility] UDS Opiates Screen Negative Normal (applies to non-numer ic results) [facility] UDS Barbiturates Screen Negative Normal (applies to non- numeric results) [facility] UDS Tricyclic Screen Negative Normal (applies to non-num wagner results) [facility] Therapeutic Drug Ranges for Emergency Threshold Levels [...] treatment purposes only. ID Date Data Source [id number] 01/14/2020 08:32:00 PM EDT [facility] Name Value Range Interpretation Code Description Data Lise rce(s) Supporting Document(s) White Blood Count 3.5-10.5 Normal (applies to non-numeri c results) [facility] Red Blood Count 4.30-5.70 Normal (applies to non-numeric results) [facility] Hemoglobin 13.5-17.5 Normal (applies to non-numeric resul ts) [facility] Hematocrit 38.8-50.0 Normal (applies to non-numeric resul ts) [facility] Mean Corpuscular Volume 81.2-95.1 Normal (applies to non- numeric results) [facility] Mean Corpuscular Hgb 25.6-32.2 Normal (applies to non-num wagner results) [facility] Mean Corpuscular Hgb Conc 32.0-36.0 Normal (applies to no n-numeric results) [facility] Red Cell Distribution Width 11.8-15.6 Normal (appli es to non-numeric results) [facility] Platelet Count 265 x10 3/uL 150-450 Normal (applies to non-numeric results) [facility] Mean Platelet Volume 9.4-12.4 Normal (applies to non-num wagner results) [facility] Neutrophils% (Auto) 31.0-71.0 Normal (applies to non-nume milan results) [facility] Lymphocytes% (Auto) 20.0-55.0 Normal (applies to non-nume milan results) [facility] Monocytes% (Auto) 4.0-12.0 Normal (applies to non-numeri c results) [facility] Eosinophils% (Auto) 1.0-8.0 Normal (applies to non-nume milan results) [facility] Basophils% (Auto) 0.0-2.0 Normal (applies to non-numeri c results) [facility] Immature Granulocytes% (Auto) 0.0-2.0 Normal (jluis lies to non-numeric results) [facility] Neutrophils# (Auto) 1.50-6.20 Normal (applies to non-nume milan results) [facility] Lymphocytes# (Auto) 1.20-4.00 Normal (applies to non-nume milan results) [facility] Monocytes# (Auto) 0.00-0.90 Normal (applies to non-numeri c results) [facility] Eosinophils# (Auto) 0.00-0.50 Normal (applies to non-nume milan results) [facility] Basophils# (Auto) 0.00-0.20 Normal (applies to non-numeri c results) [facility] Immature Granulocytes# (Auto) 0.00-7.00 No rmal (applies to non-numeric results) [facility] ID Date Data Source [id number] 01/14/2020 09:08:00 PM EDT [facility] Name Value Range Interpretation Code Description Data Lise rce(s) Supporting Document(s) Ethanol Less than 10.0 Normal (applies to non-numeric r esults) [facility] ID Date Data Source [id number] 01/14/2020 09:08:00 PM EDT [facility] Name Value Range Interpretation Code Description Data Lise rce(s) Supporting Document(s) Magnesium 1.8-2.4 Normal (applies to non-numeric resul ts) [facility] ID Date Data Source [id number] 01/14/2020 09:08:00 PM EDT [facility] Name Value Range Interpretation Code Description Data Lise rce(s) Supporting Document(s) Thyroid Stimulate Hormone TSH 0.358-3.74 No rmal (applies to non-numeric results) [facility] ID Date Data Source [id number] 01/14/2020 09:08:00 PM EDT [facility] Name Value Range Interpretation Code Description Data Lise rce(s) Supporting Document(s) Sodium 136 mmol/L 136-145 Normal (applies to non-numeric resul ts) [facility] Potassium 3.5-5.1 Below low normal [facility] spital Chloride 100 mmol/L 98-107 Normal (applies to non-numeric resul ts) [facility] Carbon Dioxide CO2 21-32 Normal (applies to non-numer ic results) [facility] Anion Gap 5.0-16.0 Normal (applies to non-numeric resul ts) [facility] BUN 8 mg/dL 7-18 Normal (applies to non-numeric results) [facility] Creatinine,Serum 0.8-1.5 Normal (applies to non-numeric results) [facility] GFR >60 Normal (applies to non-numeric results) [facility] Glucose Level 87 mg/dL 60-99 Normal (applies to non-numeric re sults) [facility] Reference range is only applicable when patient is fasting Note the following drug interference: Sulfasalazine Sulfapyridine Can see falsely depressed Can see falsely elevated result with up to 17% results with up to 11% decrease in measurement increase in measurement Recommend patients be collected for this test prior to administration of either drug. Calcium 8.5-10.1 Normal (applies to non-numeric resul ts) [facility] Bilirubin,Total 0.1-1.9 Normal (applies to non-numeric results) [facility] SGOT(AST) 7 U/L 15-37 Below low normal [facility] Note the following drug interference: Sulfasalazine Sulfapyridine Can see falsely depressed Can see falsely elevated result with up to 10% results with up to 10% decrease in measurement increase in measurement Recommend patients be collected for this test prior to administration of either drug. SGPT(ALT) 22 U/L 12-78 Normal (applies to non-numeric resul ts) [facility] Note the following drug interference: Sulfasalazine Sulfapyridine Can see falsely depressed Can see falsely elevated result with up to 29% results with up to 10% decrease in measurement increase in measurement Recommend patients be collected for this test prior to administration of either drug. Alkaline Phosphatase 68 U/L 38-126 Normal (applies to non-num wagner results) [facility] can increase Alkaline Phosp le vels up to 2 times the normal adult value. Normal values for children and adolescents are 2 to 3 times the normal adult value. Total Protein 6.0-8.2 Normal (applies to non-numeric re sults) [facility] Albumin Level 3.4-5.0 Normal (applies to non-numeric re sults) [facility] ID Date Data Source [id number] 01/14/2020 09:08:00 PM EDT [facility] Name Value Range Interpretation Code Description Data Lise rce(s) Supporting Document(s) Bilirubin,Direct 0.05-0.20 Normal (applies to non-numeric results) [facility] ID Date Data Source [id number] 01/14/2020 09:08:00 PM EDT [facility] Name Value Range Interpretation Code Description Data Lise rce(s) Supporting Document(s) Phosphorus 2.5-4.9 Normal (applies to non-numeric resul ts) [facility] ID Date Data Source [id number] 03/11/2020 04:16:00 PM EST [facility] Manual entry verified by [employer] CISNEROS 03/11/20 1603 [facility]. COMPLETED ON DATE 01/18/20 TIME [employer] KEITH BELTRAN Name Value Range Interpretation Code Description Data Lise rce(s) Supporting Document(s) Chlamydia,Urine Negative Normal (applies to non-numeric results) [facility] Test Performed By: [facility] [address] [place] [address] Director: Jalen Ellington MD This is a Corrected Result --- 03/11/201613 --- Chlamydia,Urine previously reported as: Negative GC Urine Negative Normal (applies to non-numeric resul ts) [facility] Test Performed By: [facility] [address] [place] [address] Director: Jalen Ellington MD Methodology: Second generation nucleic acid amplification. This is a Corrected Result --- 03/11/20 161 --- GC Urine previously reported as: Negative Methodology: Second generation nucleic acid amplification. ID Date Data Source [id number] 12/12/2019 02:07:00 PM EDT [address] DISCHARGE SUMMARYPATIENT NAME: CORONA VALDES MR#: [id number] PHYSICIAN: RONALD TANG MDAUTHOR: Clyde SORTO,Ronald DATE: 12/03/19 #: [id number] DATE: 12/12/19HistoryIdentificationPatient is 44-year-old male, currently , past psych historyof bipolar disorderChief ComplaintCut his arms and legs a, self harming behaviorHistory of Presenting IllnessInformation from emergency room,The patient was referred for evaluation becauseSelf-harm and wanted a medicine adjustment. Subjective: The patients chiefcomplaint is Pt presents to the ED as a transfer from [facility] for self- harmand reports that he wanted a medicine adjustment. Pt reports that he had 2beers the other night and wanted to be admitted for a med adjustment butchanged his mind after waiting 24 hours at [facility]. Pt reports that he wouldlike a D [...] that Corona is a danger to himself andrekianads that he be admitted to I/P care.During [...] tabs per dayParoxetine HCl* (Paxil*) 10 MG CFTUBH46 MILLIGRAM Orally DAILYLamotrigine (Lamictal (Green)) 1 EACH TAB.DS.PK25 MILLIGRAM Orally DAILYVERAPAMIL SUST. REL. (Verapamil ER) 120 MG CAP24H.YLI192 MILLIGRAM Orally FOUR TIMES DAILYContinue taking these medications:VERAPAMIL SUST. REL. (Verapamil ER) 120 MG CAP24H.FQV844 MILLIGRAM Orally FOUR TIMES DAILYSUMATRIPTAN SUCCINATE (Imitrex) 6 MG/0.5 ML ML6 MILLIGRAM Subcutaneous DAILY NEEDED as needed for CLUSTER HEADACHESAcamprosate Calcium (Acamprosate Calcium) 333 MG TABLET.DR333 MILLIGRAM Orally THREE TIMES DAILYAMMONIUM LACTATE (AMMONIUM LAC) 140 GM CREAM..G.12 PERCENT Externally DAILYNICOTINE TRANSDERMAL PATCH (Nicotine Patch) 1 EACH PATCH.RN0385 MILLIGRAM Topically EVERY 24 HOURSFOLIC ACID* (Folvite*) 1 MG TABLET1 MILLIGRAM Orally DAILYLEVOTHYROXINE* (Synthroid*) 75 MCG EFLARV19 MICROGRAM Orally DAILYIRBESARTAN (IRBESARTAN) 150 MG YPHMCU540 MILLIGRAM Orally DAILYGalcanezumab-Gnlm (Emgality Syringe) 300 MG/3 ML [id number] MILLIGRAM SUB-Q ONCE MONTHLYStart taking the following new medications:TAMSULOSIN HCL (TAMSULOSIN) 0.4 MG CAP.ER.24H0.4 MILLIGRAM Orally DAILYQty = 20Refills = 1PAROXETINE (Paxil*) 20 MG YTROTY00 MILLIGRAM Orally DAILYQty = 20Refills = 1buPROPion* (WELLBUTRIN*) 100 MG [id number] MILLIGRAM Orally DAILYQty = 20Refills = 1Aripiprazole (Aripiprazole) 10 MG JWGBJJ11 MILLIGRAM Orally DAILYQty = 20Refills = 1Alprazolam* (Xanax*) 0.25 MG TABLET0.5 MILLIGRAM Orally TWICE DAILY not to exceed 1mg per dayQty = 20No RefillsLithium Carbonate ([place] Carbonate) 150 MG JVEHBVH996 MILLIGRAM Orally TWICE DAILYQty = 20Refills = 1Discharge Activity: As toleratedDischarge diet: Low Fat/Low Cholesterol, 2Gm SodiumFollow-upFollow up with your Primary care physicianFollow up with therapiest and psychiatrist as scheduledalso recommended outpt chemical dependencyReferralsOrdered ReferralsPsychiatry Referral 12/24/19For Providers:Jose Gonsalves [id number] [place] [id number] In person appointment with Dr. Gonsalves([phone]) on December 23 at2:30 pm. Corona has been placed on acancellation list to be seen sooner.DATE SIGNED: 12/12/19 Electronically SignedTIME SIGNED: 141 RONALD TANG MD Name Value Range Interpretation Code Description Data Lise rce(s) Supporting Document(s) ID Date Data Source [id number] 12/12/2019 09:57:00 AM EDT [facility] [id number] NAME: CORONA VALDES#: [id number] PHYSICIAN: RONALD TANG [facility] #: [id number] ADM. DATE: 12/03/19PATIENT : 77 DISCH. DATE: [...] upappointmentDischarge InformationDISCHARGE INFORMATION* Thank you for [facility] and allowing us toserve you* Our Goal is to provide the highest quality of care.* This discharge information is to help you better understand your diagnosisand medication* Avoid taking qvps-lui-bjoxsyx medicines unless approved by your physician.* Take your medications as prescribed. DO NOT stop any medications unlessapproved first* Weigh yourself daily. Report any gain of 5 lbs in a week* 24 Hour Crisis HOTLINE available: Call Reachout at [phone]* Chem. Dependency: Walk in Clinics [place] ([phone]) and [place] ([phone]) anytime Tuesday thru Tuesday 8 to 10am. [facility] ([phone]) anytimeTuesday thru Tuesday 8 to 10am. [facility] ([phone]) Tuesday or Tuesday from 8to 10am (Bring $30 to [facility]) SMOKIN G CESSATION* Smoking is dangerous to your health. It delays the healing process, andworks against your medications. Not smoking will improve your health* Our hospital participates with the Opt-to-Quit program. You will be contactedafter discharge by the [facility] Smoker's Quitline for support with tobaccocessation. You have the option once contacted to refuse this service.* You can also go online to [email or web address].Kizziang. Free nicotine replacementsare available ___Attention* You should [...] rce(s) Supporting Document(s) ID Date Data Source [id number] 12/12/2019 06:27:00 AM EDT [address] [id number] NAME: CORONA VALDES#: [id number] PHYSICIAN: RONALD TANG MD ADM. DATE: 12/03/19PROGRESS NOTE DATE: 12/11/19 .#: 308ACCOUNT #: [id number] NOTEIDENTIFICATION: A 44-year-old male with depression and substance dependence.VITAL SIGNS: Temperature of 97, pulse of 74, respirations 18, blood /85.LABORATORY DATA: Done today 12/10, sodium 142, potassium 4.4, creatinine 0.8,glomerular filtration more than 60. AST 10, ALT 31. [place] level 0.3.MEDICATIONS: Abilify 10 mg daily, Xanax [...] discharge tomorrow.Date Dictated: 12/11/2019 10:58:24Date Transcribed: 12/12/2019 05:27:13JV/Cas #: [id number]: 12/11/19 1058 Electronically SignedTRANS:12/12/19 0627 DEEPTHI GARZA MDTRANS BY:KEYANNA SIGNED:12/13/19REPORT COPY TO: Name Value Range Interpretation Code Description Data Lise rce(s) Supporting Document(s) ID Date Data Source [id number] 12/11/2019 08:56:00 AM [facility]: [id number] Reported By: - Kelly CAI M.D. Signed By: Kelly CAI M.D. Name Value Range Interpretation Code Description Data Lise rce(s) Supporting Document(s) ID Date Data Source [id number] 12/11/2019 10:21:00 AM EDT [facility] Name Value Range Interpretation Code Description Data Lise rce(s) Supporting Document(s) LITHIUM 0.30 mmol/L 0.50-1.20 L [facility] ID Date Data Source [id number] 12/11/2019 10:21:00 AM EDT [facility] Name Value Range Interpretation Code Description Data Lise rce(s) Supporting Document(s) GLU 105 mg/dL 70-110 [facility] Patients taking Sulfasalazine may have f alsely depressedGlucose levels. Patients taking Sulfapyridine may havefalsely elevated Glucose levels. Patients should be drawnfor Glucose before the initial administration of eitherdrug. BUN 9 mg/dL 7-23 [facility] CRE 0.854 mg/dL 0.500-1.300 [facility] GFR > 60 mL/min [facility] CHLORIDE 105 mmol/L 99-110 [facility] NA 142 mmol/L 136-147 [facility] POTASSIUM 4.4 mmol/L 3.5-5.1 [facility] TCO2 31 mmol/L 20-33 [facility] ANION GAP 10.4 10.0-20.0 [facility] CA 8.9 mg/dL 8.3-10.7 [facility] ALKALINE PHOS 67 U/L 45-117 [facility] TP 7.0 g/dL 6.0-7.8 [facility] ALB 3.7 g/dL 3.5-5.0 [facility] ESRD Dialysis patient Albumin reference range: 2.9-4.4 g/dL GL 3.3 g/dL 2.3-3.5 [facility] A/G 1.1 1.0-2.5 [facility] T. BILIRUBIN 0.6 mg/dL 0.1-1.1 [facility] The [employer] [place] Total Bilirubin is n ot recommended forpatients undergoing treatment with eltrombopag (Promacta)due to the potential for falsely elevated results. ALTI 31 U/L 6-54 [facility] Patients taking Sulfasalazine and/or Sul fapyridine may havefalsely depressed ALT levels. Patients should be drawn forALT before the initial administration of either drug. AST 10 U/L 8-40 [facility] Patients taking Sulfasalazine and/or Sul fapyridine may havefalsely depressed AST levels. Patients should be drawn forAST before the initial administration of either drug. ID Date Data Source [id number] 12/10/2019 11:02:00 AM EDT [address] [id number] NAME: CORONA VALDES#: [id number] PHYSICIAN: RONALD TANG MD ADM. DATE: 12/03/19PROGRESS NOTE DATE: 12/10/19 .#: [id number] #: [id number] NOTEIDENTIFICATION: A 44-year-old male with depression, self-mutilation, [...] capacity is intact.DIAGNOSIS: Major depressive disorder, self-mutilation.PLAN: [place] level and CMP tomorrow. Increase Abilify to 10 mg daily.Reduce the Xanax to twice a day.Date Dictated: 12/10/2019 10:29:15Date Transcribed: 12/10/2019 10:02:54JKellee/Elsie #: [id number]: 12/10/19 1029 Electronically SignedTRANS:12/10/19 1102 DEEPTHI GARZA MDTRANS BY:KEYANNA SIGNED:12/10/19REPORT COPY TO: Name Value Range Interpretation Code Description Data Lise rce(s) Supporting Document(s) ID Date Data Source [id number] 12/07/2019 11:02:00 AM EDT [address] HEALTH PROGRESS NOTEPATIENT NAME: CORONA VALDES PHYSICIAN: RONALD TANG MDAUTHOR: Clyde SORTO,DhruvADM. DATE: 12/03/19 MR#: [id number] NOTE DATE: 12/07/19 RM#: [id number] TIME: 1104 [...] MedicationsAripiprazole (Aripiprazole) 7.5 MG DAILY POLithium Carbonate ([place] Carbonate) 300 MG QAM POVerapamil HCl ([place],Isoptin) 120 MG QID POBupropion HCl (Wellbutrin) 100 MG DAILY POMiscellaneous Read [id number] NALevothyroxine Sodium (Synthroid) 75 MCG 0600 POFluocinonide [...] 50 MG QHSPRN PRN POResultsLaboratory DataRecent Labs-24 hours09/620599TkwtmyauizMefnkyl (0.50 - 1.20 mmol/L) 0.30 LAssessment/PlanDiagnosis1. Bipolar 1 disorder, depressedCoordination of care provided with nursing staff, treatment teamRisk/benefits discussed side effectsDATE SIGNED: 12/07/19 Electronically SignedTIME SIGNED: [id number] RONALD TANG MD Name Value Range Interpretation Code Description Data Lise rce(s) Supporting Document(s) ID Date Data Source [id number] 12/07/2019 09:01:00 AM EDT [facility] Name Value Range Interpretation Code Description Data Lise rce(s) Supporting Document(s) LITHIUM 0.30 mmol/L 0.50-1.20 L [facility] ID Date Data Source [id number] 12/05/2019 05:10:00 PM EDT [facility] [address] [address]KOKDEAWO NOTE FOLLOW UPPATIENT NAME: CORONA VALDES PHYSICIAN: RONALD TANG MDAUTHOR: Jonny Walker. DATE: 12/03/19 MR#: [id number] NOTE DATE: 12/05/19 RM#: [id number] TIME: 171 : 76Progress Note Follow UpSummaryPatient complains of [...] rce(s) Supporting Document(s) ID Date Data Source [id number] 12/05/2019 05:50:00 PM EDT [facility] Name Value Range Interpretation Code Description Data Lise rce(s) Supporting Document(s) TROPI < 0.015 ng/mL 0.000-0.079 [facility] Data Source [id number] 12/05/2019 05:42:00 PM EDT [facility] Name Value Range Interpretation Code Description Data Lise rce(s) Supporting Document(s) GLU 81 mg/dL 70-110 [facility] Patients taking Sulfasalazine may have f alsely depressedGlucose levels. Patients taking Sulfapyridine may havefalsely elevated Glucose levels. Patients should be drawnfor Glucose before the initial administration of eitherdrug. BUN 14 mg/dL 7-23 [facility] CRE 0.941 mg/dL 0.500-1.300 [facility] GFR > 60 mL/min [facility] CHLORIDE 103 mmol/L 99-110 [facility] NA 140 mmol/L 136-147 [facility] POTASSIUM 4.7 mmol/L 3.5-5.1 [facility] TCO2 30 mmol/L 20-33 [facility] ANION GAP 11.7 10.0-20.0 [facility] CA 9.4 mg/dL 8.3-10.7 [facility] ALKALINE PHOS 85 U/L 45-117 [facility] TP 7.2 g/dL 6.0-7.8 [facility] ALB 3.8 g/dL 3.5-5.0 [facility] ESRD Dialysis patient Albumin reference range: 2.9-4.4 g/dL GL 3.4 g/dL 2.3-3.5 [facility] A/G 1.1 1.0-2.5 [facility] T. BILIRUBIN 0.2 mg/dL 0.1-1.1 [facility] The Dimension [place] Total Bilirubin is n ot recommended forpatients undergoing treatment with eltrombopag (Promacta)due to the potential for falsely elevated results. ALTI 34 U/L 6-54 [facility] Patients taking Sulfasalazine and/or Sul fapyridine may havefalsely depressed ALT levels. Patients should be drawn forALT before the initial administration of either drug. AST 14 U/L 8-40 [facility] Patients taking Sulfasalazine and/or Sul fapyridine may havefalsely depressed AST levels. Patients should be drawn forAST before the initial administration of either drug. ID Date Data Source [id number] 12/05/2019 01:07:00 PM EDT [address] HEALTH PROGRESS NOTEPATIENT NAME: CORONA VALDES PHYSICIAN: RONALD TANG MDAUTHOR: Clyde SORTO,DhruvASTEPHON. DATE: 12/03/19 MR#: [id number] NOTE DATE: 12/05/19 RM#: [id number] TIME: 1309 [...] HCl (Wellbutrin) 100 MG DAILY POMiscellaneous Read [id number] NAMiscellaneous (Patch off) 1 PAT QHS NABacitracin Zinc (Bacitracin) 1 UNIT BIDPRN PRN TOPNicotine (Nicorette) 2 MG Q2HPRN PRN POLevothyroxine Sodium (Synthroid) 75 MCG DAILY POLithium Carbonate ([place] Carbonate) 300 MG BID POLosartan Potassium (Cozaar) [...] side effectsDATE SIGNED: 12/05/19 Electronically SignedTIME SIGNED: [id number] RONALD TANG MD Name Value Range Interpretation Code Description Data Lise rce(s) Supporting Document(s) ID Date Data Source [id number] 12/04/2019 04:40:00 PM EDT [address] [address]QAGADRK AND PHYSICALPATIENT NAME: CORONA VALDES MR#: [id number] PHYSICIAN: RONALD TANG MDAUTHOR: Corona Walker DATE: 12/03/19 RM#: [id number] & PHYSICAL DATE: 12/04/19 : 76EVALUATION TIME: 1640HistoryChief Complaint/Admit ReasonAnxietyHistory of Presenting IllnessPatient presents with anxiety, acute onset, worsening, severe. [facility] ED[facility]. Has no complaints of SI. [...] MeanPulse Ox 95 97 98O2 DeliveryO2 Flow BpufXpV506/581356ObgiNbtyh 71RespB/PB/P MeanPulse OxO2 DeliveryO2 Flow KqntIzE2Xogwqpvf ExaminationGeneral Appearance no acute distress, afebrile, alert, [...] rce(s) Supporting Document(s) ID Date Data Source [id number] 12/04/2019 02:48:00 PM EDT [address] PSYCHIATRIC ASSESSMENTPATIENT NAME: CORONA VALDES MR#: [id number] PHYSICIAN: RONALD TANG MDAUTHOR: Ronald Tang MD DATE: 12/03/19 RM#: [id number]ient is 44-year-old male, currently , past psych historyof bipolar disorderChief ComplaintCut his arms and legs a, self harming behaviorHistory of Presenting IllnessInformation from emergency room,The patient was referred for evaluation becauseSelf-harm and wanted a medicine adjustment. Subjective: The patients chiefcomplaint is Pt presents to the ED as a transfer from [facility] for self-harmand reports that he wanted a medicine adjustment. Pt reports that he had 2beers the other night and wanted to be admitted for a med adjustment butchanged his mind after waiting 24 hours at [facility]. Pt reports that he wouldlike a D/C. [...] stated that he [facility], diagnosed with [...] rce(s) Supporting Document(s) ID Date Data Source [id number] 12/04/2019 12:02:00 AM EDT [facility] Nurse's NotesClJohn [facility]. [facility] terName: Corona ValdesAge: 44 yrsSex: MaleDOB: 1975MRN: [id number] Date: 12/03/2019Time: 19:07Account#: [id number] MD: Cristi VelasquezaDiagnosis: Other depressive episodesPresentation:11/1418:12 Presenting complaint: Patient transferred from [address] for mental health admission. Patient presented to [facility] ER withc/o needing mental health admission, [...] 3 weeks? no Have you traveled to idocation with widespread or ongoing COVID-19 community spread? [...] Triage 2 kk219:12 [facility]15 Acuity Assignment: Triage 2 ry4Lgtkvp Assessment:19:25 General: Appears in no apparent distress, Behavior is cooperative, qe3iocftfmy. Sepsis Screening: (1)Signs/symptoms infection No. Pain:Denies pain. PSS-3 Now I'm going to ask you some questions that weask everyone treated here, no matter what problem they are here for.It is part of [facility]'s policy and it helps us to [...] threats or abuse. Denies injuries from another. av5Oktfswpsnuc screening: No deficits noted. Offer of HIV testing:patient was previously offered screening. Fall Risk None identified.Assessment:19:26 General: see triage assessment . vb3Thqcrhqtslcb:20:07 SAFE Act Report Not Completed. Intervention: Observation Level 3. [address] consult is initiated at 20:08.20:18 Referral Information: Evaluation [facility] The patient was referred for evaluation becauseSelf-harm and wanted a medicine adjustment. Subjective: The patientschief complaint is Pt [facility] and reports that he wanted a medicine adjustment. Ptreports that he had 2 beers the other night and wanted to be admittedfor a med adjustment but [facility] reports that he would like a D/C. Pt katie es SI, [place],self-harm, substance abuse, past hx of rehab, detox, access to [facility], [place] denies hallucinations. Pt's transfer chart reports that he cuthis arm and legs last night and called his sister, intoxicated andasking for help and that she called the police to bring him to [facility]. Cuts were seen on his left arm [...] recommends that he be admitted to I/P MH care. .Delusions are denied, Hallucinations are denied. Patient's mood isdysthymic. Patient reports history of alcohol abuse, anxiety, BipolarDisorder, Depression, self -mutilation, Mental Health Admissions:[facility], 2019, [place] Current Outpatient Mental Health Services:Psychiatrist [...] that he is being admited 9.39 to [facility]. . Consultation: Psych MD informed of patient's status at 22:00,ED MD notified of patients status at 22:30, Mental Health RN PRIVATE DUTY madeaware of pt status at 22:05. Disposition: Medically cleared fordisposition by Dr Becker. Psychiatric Consult is performed by phonewith Dr Tang The patient is admitted to [facility] Patient report isgiven to Pt will be escorted via MH RN and MHW. Legal Status:Patient's legal status will be Emergency: . Commitment papers arecompleted. DSM-V DX [place] I diagnosis: Depression, Unspecified.Insurance Pre- Certification: Not [...] [facility]. 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 gj4Vusygkjhz: Patient is cooperative, Speech is normal, Affect [...] kk219:08 Niki Velasquez is Private Physician. kk219:11 Tex Becker MD is Attending Physician. dk219:12 Yun Sanchez, JOHNNY is Primary Nurse. kk219:15 Triage completed. kk219:26 Arm band placed on Patient placed in exam room Patient notified of we8xepg time.19:26 Patient has correct armband on for positive identification. Bed in kk2low position. Sitter at bedside.19:26 No Physician assisted procedures completed. kk219:37 Valuables inventory done. geg22:58 Ronald Tang MD is Hospitalizing Provider. uh0Iavwjmbymjxj Medications:No medications were administeredOutcome:22:58 Decision to Hospitalize by Provider. dk1500:01 Disposition: Admitted to Psych sr0Hoitlemuz: stable.Discharge instructions given to patient, Instructed on need foradmit, Demonstrated understanding of instructions.Discharge Assessment: Patient verbalized understanding of dispositioninstructions. Patient has no functional deficits.00:02 Patient left the ED. yo0Syzcsddtlv:Kinsey Carbajal, Yun Adrian, RN RN sb1SsuwieAnabel Rodriguez RN RN ef1Tex Becker MD MD vf8Clug, Evangelical, PSA PSA qe4Piswbedwedb: (The following items were deleted from the chart)11/1418:25 19:15 Allergies: Unable to obtain; kk2 kk222:52 22:45 [place] Suicide Severity Rating Scale: Suicidal Ideation qp4Eieufu 3; Intensity of Ideations Rating 3; Suicidal Behavior Rating 8mw449:02 00:01 BP 121 / 168; Pulse 48bpm; Resp 16bpm; Pulse Ox 93%; Temp ef198.6F; Pain 0/10; ef1 Name Value Range Interpretation Code Description Data Lise rce(s) Supporting Document(s) ID Date Data Source [id number] 12/04/2019 12:02:00 AM EDT [facility] Physician DocumentationClaxBela Alan edical CenterName: Corona ValdesAge: 44 yrsSex: MaleDOB: 1975MRN: [id number] Date: 12/03/2019Time: 19:07Account#: [id number] MD: Dorothy Velasquez Physician Eugenio, MarthakDisposition Summary:12/03/19 22:58Hospitalization OrderedHospitalization Status: Inpatient Admission cl7Yyjnfbpp: Clyde, Ronald fo7Ptusrhwc: Mental Health Unit wd8Fcxwwcvzv: Unchanged no2Dpoeqhd: an ongoing problem ln9Wyxuotif: are unchanged tr8Lrej Assignment: ng3Orlmbrhdi- Other depressive episodes pe2Pwcfwvzlyc Information- Admission Type: Inpatient Status. oo1Apgwh:- Medication Reconciliation dk2- SBAR dk2- Medication Reconciliation Form - 2nd Copy dk2HPI:11/1419:36 This 44 yrs old White Male presents to ER via Ambulance with fa3oaddgrscrn of Psych Problem.20:36 Patient is transferred from [facility] for psychiatric evaluation. ni8Qwcbyjw was having thoughts of harming himself before but states thatthose have resolved. He states he was at [facility] for over 24 hoursand feels back to [...] Negative for chills, fever. Eyes: Negative for ck2eqdgybndl, vision loss. ENT: Negative for difficulty swallowing,difficulty [...] patient appears in no acute distress, alert, mk7pjsio, comfortable, non- diaphoretic, non-toxic, well developed.01:01 Head/face: [...] 18; Temp 97.9; Pulse Ox 96% ; kk/1499: BP 121 / 68; Pulse 48; Resp 16; Temp 98.6; Pulse Ox 93% ; Pain 0/10; ef1MDM:11/1418: Patient medically screened. 1:01 Data reviewed: nurses notes. ED course: Patient transferred to the [address] for psychiatric evaluation, denies active suicidality. [...] Mental Health Level 3; Complete Time: 00:02 :28 Order name: VS q shift; Complete Time: 00:02 0:06 Order name: Medically Cleared for Eval by- Psychosocial, Water Quality Technician kk2(.PSA); Complete Time: 20:07Dispensed Medications:No medications were administeredSignatures:Yun Sanchez, RN RN pz3QcbefcAnabel Rodriguez RN JOHNNY statonig1KolxtvqTex Becker MD MD sm0Scbivjnornl: (The following items were deleted from the chart)11/1418:25 19:15 Allergies: Unable to obtain; kk2 kk2 Name Value Range Interpretation Code Description Data Lise rce(s) Supporting Document(s) Procedure Social History Code Duration Value Status Description Data Source(s ) Smoking 07/29/2020 12:00:00 AM EDT Current Smoker completed Curre nt Smoker eCW1 ([facility]) Smoking 07/29/2020 12:00:00 AM EDT Current Smoker completed Curre nt Smoker eCW1 ([facility]) Smoking 07/29/2020 12:00:00 AM EDT Current Smoker completed Curre nt Smoker eCW1 ([facility]) Smoking 07/29/2020 12:00:00 AM EDT Current Smoker completed Curre nt Smoker eCW1 ([facility]) Smoking 06/03/2020 12:00:00 AM EDT Current Smoker completed Curre nt Smoker eCW1 ([facility]) Smoking 06/03/2020 12:00:00 AM EDT Current Smoker completed Curre nt Smoker eCW1 ([facility]) Smoking 06/03/2020 12:00:00 AM EDT Current Smoker completed Curre nt Smoker eCW1 ([facility]) Smoking 02/21/2020 12:00:00 AM EST Current Smoker completed Curre nt Smoker eCW1 ([facility]) Smoking 02/21/2020 12:00:00 AM EST Current Smoker completed Curre nt Smoker eCW1 ([facility]) Smoking 02/21/2020 12:00:00 AM EST Current Smoker completed Curre nt Smoker eCW1 ([facility]) Vital Signs ID Date Data Source UNK Name Value Range Interpretation Code Description Data Source(s) Diastolic blood pressure 71 mm[Hg] 71 mm[Hg] eCW1 ([facility]) Systolic blood pressure 117 mm[Hg] 117 mm[Hg] e CW1 ([facility]) Body temperature 98.1 [degF] 98.1 [degF] eCW1 ( [facility]) Respiratory rate 18 /min 18 /min eCW1 ([facility]placed by [facility]) Heart rate 83 /min 83 /min eCW1 ([facility]) Body mass index (BMI) [Ratio] 25.01 kg/m2 25.01 kg/m2 eCW1 ([facility]) Body height 69 [in_i] 69 [in_i] eCW1 ([facility]) Body weight 169.4 [lb_av] 169.4 [lb_av] eCW1 ([facility]) Diastolic blood pressure 86 mm[Hg] 86 mm[Hg] eCW1 ([facility]) Systolic blood pressure 126 mm[Hg] 126 mm[Hg] e CW1 ([facility]) Body temperature 98.2 [degF] 98.2 [degF] eCW1 ( [facility]) Respiratory rate 18 /min 18 /min eCW1 (Replaced by [facility]) Heart rate 98 /min 98 /min eCW1 ([facility]) Body mass index (BMI) [Ratio] 25.10 kg/m2 25.10 kg/m2 eCW1 ([facility]) Body height 69 [in_i] 69 [in_i] eCW1 ([facility]) Body weight 170 [lb_av] 170 [lb_av] eCW1 ([facility]) Diastolic blood pressure 80 mm[Hg] 80 mm[Hg] eCW1 ([facility]) Systolic blood pressure 133 mm[Hg] 133 mm[Hg] e CW1 ([facility]) Body temperature 99.1 [degF] 99.1 [degF] eCW1 ( [facility]) Respiratory rate 18 /min 18 /min eCW1 (Replaced [facility]) Heart rate 90 /min 90 /min eCW1 ([facility]) Body mass index (BMI) [Ratio] 24.66 kg/m2 24.66 kg/m2 eCW1 ([facility]) Body height 69 [in_i] 69 [in_i] eCW1 ([facility]) Body weight 167 [lb_av] 167 [lb_av] eCW1 ([facility]) ID Date Data Source [id number] 07/15/2020 12:14:00 PM EDT [facility] Name Value Range Interpretation Code Description Data Source(s) Weight Measurement Method 5 5 [facility] Weight (Calculated Kilograms) 79.38 79.38 [facility] Weight 2680.0 2680.0 [facility] Temperature Source 7 7 [facility] Temperature 98.3 98.3 [facility] Respiratory Effort 1 1 [facility] Respiratory Rate 16 16 [facility] Pulse Assessment Method 4 4 [facility] Pulse Rate 69 69 [facility] Height (Calculated Centimeters) 172.72 172. 72 [facility] Height 68 68 [facility] Blood Pressure 142/79 142/79 [facility] Body Mass Index (BMI) 26.6 26.6 [facility] Weight Measurement Method 5 5 [facility] Weight (Calculated Kilograms) 79.38 79.38 [facility] Weight 2680.0 2680.0 [facility] Temperature Source 7 7 [facility] Temperature 98.3 98.3 [facility] Respiratory Effort 1 1 [facility] Respiratory Rate 16 16 [facility] Pulse Assessment Method 4 4 [facility] Pulse Rate 69 69 [facility] Height (Calculated Centimeters) 172.72 172. 72 [facility] Height 68 68 [facility] Blood Pressure 142/79 142/79 [facility] Body Mass Index (BMI) 26.6 26.6 [facility] Weight Measurement Method 5 5 [facility] Weight (Calculated Kilograms) 79.38 79.38 [facility] Weight 2697.6 2697.6 [facility] Temperature Source 1 1 [facility] Temperature 97 97 [facility] Respiratory Effort 1 1 [facility] Respiratory Rate 18 18 [facility] Pulse Assessment Method 4 4 [facility] Pulse Rate 60 60 [facility] Height (Calculated Centimeters) 172.72 172. 72 [facility] Height 68 68 [facility] Blood Pressure 129/88 129/88 [facility] Body Mass Index (BMI) 26.6 26.6 [facility] Weight Measurement Method 5 5 [facility] Weight (Calculated Kilograms) 79.38 79.38 [facility] Weight 2800 2800 [facility] Temperature Source 7 7 [facility] Temperature 98 98 [facility] Respiratory Rate 18 18 [facility] Pulse Assessment Method 4 4 [facility] Pulse Rate 67 67 [facility] Height (Calculated Centimeters) 172.72 172. 72 [facility] Height 68 68 [facility] Blood Pressure 130/87 130/87 [facility] Body Mass Index (BMI) 26.6 26.6 [facility] ID Date Data Source [id number] 08/14/2020 03:40:00 PM EDT [facility] Name Value Range Interpretation Code Description Data Source(s) Weight Measurement Method 8 8 [facility] Weight (Calculated Kilograms) 77.84 77.84 [facility] 2640 2640 [facility] 1 1 [facility] Temperature 97.8 97.8 [facility] Respiratory Effort 1 1 [facility] Respiratory Rate 18 18 [facility] Pulse Assessment Method 4 4 [facility] Pulse Rate 83 83 [facility] Height (Calculated Centimeters) 175.26 175. 26 [facility] Height 69 69 [facility] Blood Pressure 143/80 143/80 [facility] Body Mass Index (BMI) 25.3 25.3 [facility] Weight Measurement Method 8 8 [facility] Weight (Calculated Kilograms) 77.84 77.84 [facility] Weight 2640 2640 [facility] 1 1 [facility] Temperature 98.4 98.4 [facility] Respiratory Effort 1 1 [facility] Respiratory Rate 14 14 [facility] Pulse Assessment Method 4 4 [facility] Pulse Rate 73 73 [facility] pital Height (Calculated Centimeters) 175.26 175. 26 [facility] Height 69 69 [facility] pital Blood Pressure 148/94 148/94 [facility] Body Mass Index (BMI) 25.3 25.3 [facility] Weight Measurement Method 8 8 [facility] Weight (Calculated Kilograms) 77.84 77.84 [facility] Weight 2640 2640 [facility] pital Temperature Source 1 1 [facility] Temperature 98.4 98.4 [facility] Respiratory Effort 1 1 [facility] Respiratory Rate 14 14 [facility] Pulse Assessment Method 4 4 [facility] Pulse Rate 73 73 [facility] pital Height (Calculated Centimeters) 175.26 175. 26 [facility] Height 69 69 [facility] pital Blood Pressure 148/94 148/94 [facility] Body Mass Index (BMI) 25.3 25.3 [facility] Weight (Calculated Kilograms) 77.84 77.84 [facility] Height (Calculated Centimeters) 175.26 175. 26 [facility] Body Mass Index (BMI) 25.3 25.3 [facility] Weight (Calculated Kilograms) 77.84 77.84 [facility] Height (Calculated Centimeters) 175.26 175. 26 [facility] Body Mass Index (BMI) 25.3 25.3 [facility] ID Date Data Source [id number] 07/06/2020 12:01:00 AM EDT [facility] Name Value Range Interpretation Code Description Data Source(s) Weight (Calculated Kilograms) 77.84 77.84 [facility] Height (Calculated Centimeters) 175.26 175. 26 [facility] Body Mass Index (BMI) 25.3 25.3 [facility] ID Date Data Source [id number] 03/04/2020 01:23:00 AM EST [facility] Name Value Range Interpretation Code Description Data Source(s) Weight 2688 2688 [facility] Temperature Source 7 7 [facility] Temperature 97.7 97.7 [facility] Respiratory Rate 18 18 [facility] Pulse Assessment Method 4 4 [facility] Pulse Rate 71 71 [facility] Height 69 69 [facility] Blood Pressure 132/83 132/83 [facility] Weight 2688 2688 [facility] Temperature Source 7 7 [facility] Temperature 97.7 97.7 [facility] Respiratory Rate 18 18 [facility] Pulse Assessment Method 4 4 [facility] Pulse Rate 71 71 [facility] Height 69 69 [facility] Blood Pressure 132/83 132/83 [facility] Weight 2688 2688 [facility] Temperature Source 7 7 [facility] Temperature 97.1 97.1 [facility] Respiratory Rate 16 16 [facility] Pulse Assessment Method 4 4 [facility] Pulse Rate 69 69 [facility] Height 69 69 [facility] Blood Pressure 136/85 136/85 [facility] Weight 2688 2688 [facility] Temperature Source 7 7 [facility] Temperature 96.7 96.7 [facility] Respiratory Rate 18 18 [facility] Pulse Assessment Method 4 4 C [facility] Pulse Rate 65 65 [facility] Height 69 69 [facility] Blood Pressure 129/78 129/78 [facility] ID Date Data Source [id number] 01/14/2020 10:08:00 PM EDT [facility] spital Name Value Range Interpretation Code Description Data Source(s) Weight Measurement Method 1 1 [facility] Weight (Calculated Kilograms) 74.39 74.39 [facility] Weight 2624 2624 [facility] Temperature Source 1 1 [facility] Temperature 98.6 98.6 [facility] spital Respiratory Effort 1 1 [facility] Respiratory Rate 18 18 [facility] Pulse Assessment Method 4 4 [facility] Pulse Rate 74 74 [facility] Height (Calculated Centimeters) 175.26 175. 26 [facility] Height 69 69 [facility] Blood Pressure 148/88 148/88 [facility] Body Mass Index (BMI) 24.2 24.2 [facility] Weight (Calculated Kilograms) 77.84 77.84 [facility] Height (Calculated Centimeters) 175.26 175. 26 [facility] Body Mass Index (BMI) 25.3 25.3 [facility] ID Date Data Source [id number] 03/13/2020 11:41:00 AM EST [place] [facility] Name Value Range Interpretation Code Description Data Source(s) Weight (Calculated Kilograms) 77.84 77.84 [facility] Height (Calculated Centimeters) 175.26 175. 26 [facility] Body Mass Index (BMI) 25.3 25.3 [facility] Weight (Calculated Kilograms) 77.84 77.84 [facility] Height (Calculated Centimeters) 175.26 175. 26 [facility] Body Mass Index (BMI) 25.3 25.3 [facility] ID Date Data Source [id number] 03/03/2020 08:00:00 [facility] Value Range Interpretation Code Description Data Source(s) WEIGHT 73 kilos 73 kilos [facility] HEIGHT 175.26 centimeters 175.26 centimeter [facility] WE[facility] 79 [facility].26 centimeters 175.26 centimeter [facility] Patient Treatment Plan of Care Planned Activity Planned Date Details Description Data Source (s) Oxygen 03/04/2020 12:00:00 AM EST e CW1 ([facility]) Oxygen 03/04/2020 12:00:00 AM EST e CW1 ([facility])
[2021-01-01 14:11] LABS: BASO % 0.6 % (0.0-1.0); EOS # 0.1 10^3/uL (0.0-0.5); HEMATOCRIT 41.4 % (42.0-52.0); HEMOGLOBIN 14.6 g/dl (13.5-17.5); LYMPH # 2.1 10^3/uL (1.5-5.0); LYMPH % 30.9 % (24.0-44.0); MEAN CORPUSCULAR HEMOGLOBIN 31.8 pg (27.0-33.0); MEAN CORPUSCULAR HGB CONC 35.3 g/dl (32.0-36.5); MEAN CORPUSCULAR VOLUME 90.2 fl (80.0-96.0); MONO # 0.4 10^3/uL (0.0-0.8); MONO % 6.1 % (2.0-8.0); NEUTROPHILS # 4.1 10^3/uL (1.5-8.5); NEUTROPHILS % 59.8 % (36.0-66.0); PLATELET COUNT, AUTOMATED 207 10^3/uL (150-450); RED BLOOD COUNT 4.59 10^6/uL (4.30-6.10); WHITE BLOOD COUNT 6.9 10^3/uL (4.0-10.0)
[2021-01-01 14:40] LABS: ALBUMIN 3.7 GM/DL (3.2-5.2); ALT/SGPT 37 U/L (12-78); BILIRUBIN,DIRECT 0.2 MG/DL (0.0-0.2); BILIRUBIN,TOTAL 0.6 MG/DL (0.2-1.0); BLOOD UREA NITROGEN 12 MG/DL (7-18); CALCIUM LEVEL 8.8 MG/DL (8.5-10.1); CARBON DIOXIDE LEVEL 23 MEQ/L (21-32); CHLORIDE LEVEL 111 MEQ/L (98-107); CREATININE FOR GFR 0.79 MG/DL (0.70-1.30); GLOMERULAR FILTRATION RATE > 60.0 (>60); GLUCOSE, FASTING 79 MG/DL (70-100); LIPASE 73 U/L (73-393); POTASSIUM SERUM 3.6 MEQ/L (3.5-5.1); SODIUM LEVEL 140 MEQ/L (136-145); TOTAL PROTEIN 6.8 GM/DL (6.4-8.2)
--- NOTE | 2021-01-01 15:12 | REP ---
INDICATION: Tonio flank pain, L>R, eval for hydro/calc COMPARISON: None TECHNIQUE: Axial noncontrast images from the lung bases to the pubic symphysis with coronal and sagittal reformations. This CT examination was performed using the following dose reduction techniques: Automated exposure control, adjustment of mA and/or kv according to the patient's size, and use of iterative reconstruction technique. FINDINGS: Lung bases are clear. Visualized heart and pericardium normal. Liver, spleen, pancreas, gallbladder, bilateral adrenal glands and kidneys are normal. The enteric system is without obstruction or perforation. Normal terminal ileum and appendix identified in the right lower quadrant. Subtle mucosal thickening involving the sigmoid colon may reflect a mild infectious colitis and should be correlated clinically. Pelvis demonstrates normal bladder and age-appropriate prostate/seminal vesicles. No ascites. No free air. No adenopathy. No focal inflammatory stranding. Abdominal aorta without aneurysm. Musculoskeletal structures are intact and without acute osseous abnormality. IMPRESSION: 1. Normal appearance of the urinary tract system. 2. Cannot exclude a mild infectious/inflammatory sigmoid colitis. 3. Otherwise normal CT of the abdomen and pelvis. <Electronically signed by Avinash Moser > 01/01/21 [id number]
[2021-01-01] MEDS ORDERED: diazePAM 5MG TABLET PO ONE (15:20)
[2021-01-01] MEDS ORDERED: ZANA2CAP PO (15:25)
[2021-01-01] MEDS ORDERED: KETAMINE HCL 14.55 MG in NS 50 ML IV ONE (16:00)
[2021-01-01] MEDS ORDERED: IBUP-1022 PO (16:31)
== END 2021-01-01 16:37 | disposition home or self-care (01) ==
LOC: M ED 12:45
DX: R10.9 Unspecified abdominal pain (principal); R30.0 Dysuria; F41.1 Generalized anxiety disorder; F42.9 Obsessive-compulsive disorder, unspecified; F31.9 Bipolar disorder, unspecified; F10.288 Alcohol dependence with other alcohol-induced disorder; R56.9 Unspecified convulsions; F17.210 Nicotine dependence, cigarettes, uncomplicated
CPT/HCPCS: 74176; 80048; 80076; 81001; 83690; 85025; 96361; 96365; 96375; 99284; J1885; J2405

== ENCOUNTER 2021-04-19 17:23 | Inpatient (IN) | payer MEDICARE, MEDICAID ==
[~2021-04-19] VITALS: Ht 167.6 cm; Wt 74.3 kg
[~2021-04-19 17:23] MED LIST changes: +IBUP-1022 PO; -LATU80TA PO; +LATU80TA2 PO; +PAXI10TA12 PO; +SUMA4CAR SC; -SUMA4INJ4 SC; -VERA120T83; +ZANA2CAP PO
[2021-04-19] MEDS ORDERED: LORazepam 2 MG/ML VIAL IV STA (17:41)
[2021-04-19] MEDS ORDERED: OXAZEPAM 15 MG CAP PO ONE (17:45)
[2021-04-19] MEDS ORDERED: IRBESARTAN 150MG TAB PO ONE (17:50)
[2021-04-19] MEDS: NS 1,000 ML IV SCH (18:08)
[2021-04-19 18:25] LABS: HEMATOCRIT 48.3 % (42.0-52.0); MEAN CORPUSCULAR HEMOGLOBIN 32.1 pg (27.0-33.0); MEAN CORPUSCULAR HGB CONC 35.2 g/dl (32.0-36.5); MEAN CORPUSCULAR VOLUME 91.1 fl (80.0-96.0); PLATELET COUNT, AUTOMATED 177 10^3/uL (150-450); WHITE BLOOD COUNT 12.3 10^3/uL (4.0-10.0)
[2021-04-19] MEDS ORDERED: ALPR1TAB3 PO (18:25)
[2021-04-19] MEDS ORDERED: SUMA6INJ25 SC (18:25)
[2021-04-19] MEDS ORDERED: HOME MED LIST COMPLETE! XX SCH (18:30)
[2021-04-19 19:23] LABS: ACETAMINOPHEN LEVEL < 2.0 UG/ML (10.0-30.0); ALBUMIN 3.5 GM/DL (3.2-5.2); ALT/SGPT 56 U/L (12-78); BILIRUBIN,DIRECT 0.1 MG/DL (0.0-0.2); BILIRUBIN,TOTAL 0.7 MG/DL (0.2-1.0); BLOOD UREA NITROGEN 11 MG/DL (7-18); CALCIUM LEVEL 8.9 MG/DL (8.5-10.1); CARBON DIOXIDE LEVEL 22 MEQ/L (21-32); CHLORIDE LEVEL 106 MEQ/L (98-107); CREATININE FOR GFR 0.71 MG/DL (0.70-1.30); ETHYL ALCOHOL (ETHANOL) < 0.003 % (0.000-0.010); GLOMERULAR FILTRATION RATE > 60.0 (>60); GLUCOSE, FASTING 72 MG/DL (70-100); LIPASE 59 U/L (73-393); POTASSIUM SERUM 3.9 MEQ/L (3.5-5.1); SALICYLATE LEVEL 3.7 MG/DL (5.0-30.0); SODIUM LEVEL 139 MEQ/L (136-145); TOTAL PROTEIN 7.2 GM/DL (6.4-8.2)
[2021-04-19 19:30] LABS: AMPHETAMINES LEVEL URINE NEGATIVE (NEGATIVE); BARBITURATES URINE NEGATIVE (NEGATIVE); BENZODIAZEPINES URINE NEGATIVE (NEGATIVE); CANNABINOIDS URINE NEGATIVE (NEGATIVE); COCAINE METABOLITE URINE POSITIVE (NEGATIVE); METHADONE URINE NEGATIVE (NEGATIVE); OPIATES URINE NEGATIVE (NEGATIVE); PHENCYCLIDINE URINE NEGATIVE (NEGATIVE)
[2021-04-19] MEDS ORDERED: ACETAMINOPHEN TAB 650MG DOSE (2X325MG) PO PRN (20:20)
[2021-04-19] MEDS ORDERED: LORazepam 2 MG TAB PO PRN (20:20)
[2021-04-19] MEDS: NICOTINE 21MG/24HR 1 EA TRANSDERMAL TD SCH (21:00)
[2021-04-19 21:07] LABS: FREE T4 0.72 NG/DL (0.76-1.46); MAGNESIUM LEVEL 1.9 MG/DL (1.8-2.4)
[2021-04-19] MEDS ORDERED: MULTIVITAMIN -ADULT INJECTION 10 ML, THIAMINE INJection 100 MG, FOLIC ACID 1 MG in NS 1... IV ONE (23:00)
[2021-04-19 23:20] VITALS: BP 142/91
[2021-04-20] VITALS (10 sets, daily range): BP systolic 117–179; BP diastolic 64–103
[2021-04-20] MEDS: NS 1,000 ML IV SCH ×4 (00:15→20:26)
[2021-04-20] MEDS: OXAZEPAM 15 MG CAP PO SCH ×3 (04:00→20:26)
[2021-04-20] MEDS: LEVOTHYROXINE 75MCG TABLET (0.075MG) PO SCH (05:22)
[2021-04-20] MEDS: NICOTINE 21MG/24HR 1 EA TRANSDERMAL TD SCH ×2 (05:23→20:26)
[2021-04-20] MEDS: MULTIVITAMINS/MINERALS THERAP 1 TAB PO SCH (08:31)
[2021-04-20] MEDS: IRBESARTAN 150MG TAB PO SCH (08:32)
[2021-04-20] MEDS: FOLIC ACID 1 MG TAB PO SCH (08:33)
[2021-04-20] MEDS: ENOXAPARIN 40MG/0.4ML SYRINGE (J1650 PER 10MG) SC SCH (08:34)
[2021-04-20] MEDS: THIAMINE 100 MG TAB PO SCH ×2 (08:34→20:26)
[2021-04-20 10:33] LABS: BASO % 0.6 % (0.0-1.0); EOS # 0.1 10^3/uL (0.0-0.5); EOS % 1.8 % (0.0-3.0); HEMATOCRIT 40.1 % (42.0-52.0); LYMPH # 1.7 10^3/uL (1.5-5.0); LYMPH % 35.1 % (24.0-44.0); MEAN CORPUSCULAR HEMOGLOBIN 32.2 pg (27.0-33.0); MEAN CORPUSCULAR HGB CONC 34.4 g/dl (32.0-36.5); MEAN CORPUSCULAR VOLUME 93.7 fl (80.0-96.0); MONO # 0.4 10^3/uL (0.0-0.8); MONO % 8.6 % (2.0-8.0); NEUTROPHILS # 2.6 10^3/uL (1.5-8.5); NEUTROPHILS % 53.5 % (36.0-66.0); PLATELET COUNT, AUTOMATED 143 10^3/uL (150-450); RED BLOOD COUNT 4.28 10^6/uL (4.30-6.10); WHITE BLOOD COUNT 4.9 10^3/uL (4.0-10.0)
[2021-04-20 10:39] LABS: HEMOGLOBIN 13.8 g/dl (13.5-17.5)
[2021-04-20 11:07] LABS: BLOOD UREA NITROGEN 8 MG/DL (7-18); CARBON DIOXIDE LEVEL 27 MEQ/L (21-32); CHLORIDE LEVEL 113 MEQ/L (98-107); CREATININE FOR GFR 0.68 MG/DL (0.70-1.30); GLOMERULAR FILTRATION RATE > 60.0 (>60); GLUCOSE, FASTING 88 MG/DL (70-100); POTASSIUM SERUM 3.3 MEQ/L (3.5-5.1); SODIUM LEVEL 144 MEQ/L (136-145)
[2021-04-20] MEDS: MAGNESIUM OXIDE 400MG TAB (MAG-OX) PO SCH (12:00)
[2021-04-20 12:45] LABS: FOLATE > 24.0 NG/ML (>5.4); VITAMIN B12 LEVEL 447 PG/ML (247-911)
[2021-04-20 14:34] LABS: FREE T3 2.6 PG/ML (2.2-4.0)
[2021-04-20 14:37] LABS: TOTAL T3 86.5 NG/DL (60.0-181.0)
[2021-04-20] MEDS: TAMSULOSIN 0.4 MG CAP PO SCH (20:25)
[2021-04-21] VITALS (12 sets, daily range): BP systolic 130–175; BP diastolic 67–96
[2021-04-21] MEDS: NS 1,000 ML IV SCH ×4 (03:35→22:54)
[2021-04-21] MEDS: LEVOTHYROXINE 75MCG TABLET (0.075MG) PO SCH (05:51)
[2021-04-21 06:06] LABS: BASO % 0.5 % (0.0-1.0); EOS # 0.1 10^3/uL (0.0-0.5); EOS % 1.8 % (0.0-3.0); HEMATOCRIT 43.2 % (42.0-52.0); HEMOGLOBIN 14.9 g/dl (13.5-17.5); LYMPH % 34.5 % (24.0-44.0); MEAN CORPUSCULAR HEMOGLOBIN 32.7 pg (27.0-33.0); MEAN CORPUSCULAR HGB CONC 34.5 g/dl (32.0-36.5); MEAN CORPUSCULAR VOLUME 94.7 fl (80.0-96.0); MONO # 0.5 10^3/uL (0.0-0.8); MONO % 8.1 % (2.0-8.0); NEUTROPHILS # 3.1 10^3/uL (1.5-8.5); NEUTROPHILS % 54.2 % (36.0-66.0); PLATELET COUNT, AUTOMATED 137 10^3/uL (150-450); RED BLOOD COUNT 4.56 10^6/uL (4.30-6.10); WHITE BLOOD COUNT 5.7 10^3/uL (4.0-10.0)
[2021-04-21 06:44] LABS: BLOOD UREA NITROGEN 7 MG/DL (7-18); CALCIUM LEVEL 7.8 MG/DL (8.5-10.1); CARBON DIOXIDE LEVEL 23 MEQ/L (21-32); CHLORIDE LEVEL 113 MEQ/L (98-107); CREATININE FOR GFR 0.63 MG/DL (0.70-1.30); FREE THYROXINE INDEX 1.7 % (1.4-3.8); GLOMERULAR FILTRATION RATE > 60.0 (>60); GLUCOSE, FASTING 100 MG/DL (70-100); POTASSIUM SERUM 3.7 MEQ/L (3.5-5.1); SODIUM LEVEL 141 MEQ/L (136-145); T UPTAKE 37 % (33-40); THYROXINE (T4) 4.5 UG/DL (4.5-12.0)
[2021-04-21] MEDS: ENOXAPARIN 40MG/0.4ML SYRINGE (J1650 PER 10MG) SC SCH (08:31)
[2021-04-21] MEDS: MULTIVITAMINS/MINERALS THERAP 1 TAB PO SCH (08:31)
[2021-04-21] MEDS: MAGNESIUM OXIDE 400MG TAB (MAG-OX) PO SCH (08:32)
[2021-04-21] MEDS: IRBESARTAN 150MG TAB PO SCH (08:32)
[2021-04-21] MEDS: THIAMINE 100 MG TAB PO SCH ×2 (08:33→20:05)
[2021-04-21] MEDS: FOLIC ACID 1 MG TAB PO SCH (08:33)
[2021-04-21] MEDS: OXAZEPAM 15 MG CAP PO SCH ×3 (08:34→20:05)
[2021-04-21 11:10] LABS: MAGNESIUM LEVEL 2.2 MG/DL (1.8-2.4)
[2021-04-21] MEDS: NICOTINE 21MG/24HR 1 EA TRANSDERMAL TD SCH (20:05)
[2021-04-21] MEDS: TAMSULOSIN 0.4 MG CAP PO SCH (20:05)
[2021-04-21] MEDS ORDERED: KETOROLAC 30 MG/ML 1ML VIAL IV ONE (23:05)
[2021-04-22] VITALS: BP 170/100
[2021-04-22 04:00] VITALS: BP 157/74
[2021-04-22] MEDS: NS 1,000 ML IV SCH (05:21)
[2021-04-22] MEDS: LEVOTHYROXINE 75MCG TABLET (0.075MG) PO SCH (05:21)
[2021-04-22 05:31] LABS: BASO % 0.7 % (0.0-1.0); EOS # 0.1 10^3/uL (0.0-0.5); EOS % 2.2 % (0.0-3.0); HEMATOCRIT 43.6 % (42.0-52.0); HEMOGLOBIN 14.7 g/dl (13.5-17.5); LYMPH # 2.2 10^3/uL (1.5-5.0); LYMPH % 39.9 % (24.0-44.0); MEAN CORPUSCULAR HGB CONC 33.7 g/dl (32.0-36.5); MEAN CORPUSCULAR VOLUME 94.8 fl (80.0-96.0); MONO # 0.5 10^3/uL (0.0-0.8); MONO % 9.4 % (2.0-8.0); NEUTROPHILS # 2.5 10^3/uL (1.5-8.5); NEUTROPHILS % 47.1 % (36.0-66.0); PLATELET COUNT, AUTOMATED 143 10^3/uL (150-450); WHITE BLOOD COUNT 5.4 10^3/uL (4.0-10.0)
[2021-04-22 05:49] LABS: BLOOD UREA NITROGEN 6 MG/DL (7-18); CALCIUM LEVEL 8.2 MG/DL (8.5-10.1); CARBON DIOXIDE LEVEL 25 MEQ/L (21-32); CHLORIDE LEVEL 113 MEQ/L (98-107); CREATININE FOR GFR 0.65 MG/DL (0.70-1.30); GLOMERULAR FILTRATION RATE > 60.0 (>60); GLUCOSE, FASTING 95 MG/DL (70-100); POTASSIUM SERUM 3.6 MEQ/L (3.5-5.1); SODIUM LEVEL 141 MEQ/L (136-145)
[2021-04-22 08:12] VITALS: BP 177/98
[2021-04-22] MEDS ORDERED: KETOROLAC 30 MG/ML 1ML VIAL IV ONE (08:45)
[2021-04-22] MEDS: MAGNESIUM OXIDE 400MG TAB (MAG-OX) PO SCH (09:15)
[2021-04-22] MEDS: MULTIVITAMINS/MINERALS THERAP 1 TAB PO SCH (09:15)
[2021-04-22] MEDS: ENOXAPARIN 40MG/0.4ML SYRINGE (J1650 PER 10MG) SC SCH (09:15)
[2021-04-22] MEDS: THIAMINE 100 MG TAB PO SCH (09:15)
[2021-04-22] MEDS: OXAZEPAM 15 MG CAP PO SCH (09:19)
[2021-04-22] MEDS: FOLIC ACID 1 MG TAB PO SCH (09:19)
[2021-04-22] MEDS: IRBESARTAN 150MG TAB PO SCH (09:19)
[2021-04-22 10:32] VITALS: BP 166/86
[2021-04-22 12:29] LABS: HEPATITIS B CORE ANTIBODY IGM NEGATIVE (NEGATIVE); HEPATITIS B SURFACE ANTIGEN NEGATIVE (NEGATIVE); HEPATITIS C VIRUS ABY INDEX < 0.0 INDEX (<0.8)
[2021-04-22] MEDS ORDERED: OXAZEPAM 15 MG CAP PO SCH (21:00)
== END 2021-04-22 16:19 | disposition left against medical advice (07) | DRG 894 ==
LOC: M ED 17:23 → M ED INP 20:16 → ENRESERV 21:05 → M PCU 04-20 00:56
PROVIDERS: ADMIT Internal Medicine; ATTEND Internal Medicine
DX: F10.239 Alcohol dependence with withdrawal, unspecified (principal); F31.9 Bipolar disorder, unspecified; E03.9 Hypothyroidism, unspecified; I10 Essential (primary) hypertension; F17.210 Nicotine dependence, cigarettes, uncomplicated; Z86.718 Personal history of other venous thrombosis and embolism; Z79.899 Other long term (current) drug therapy; F14.10 Cocaine abuse, uncomplicated; F10.251 Alcohol dependence with alcohol-induced psychotic disorder with hallucinations; K13.0 Diseases of lips; N20.0 Calculus of kidney; N40.0 Benign prostatic hyperplasia without lower urinary tract symptoms; F41.9 Anxiety disorder, unspecified

== ENCOUNTER 2021-05-01 12:46 | Inpatient (IN) | payer MEDICAID, OTHER ==
[~2021-05-01] VITALS: Ht 172.7 cm; Wt 74.6 kg
[~2021-05-01 12:46] MED LIST changes: +SUMA6INJ25 SC
[2021-05-01 13:26] LABS: HEMATOCRIT 45.5 % (42.0-52.0); HEMOGLOBIN 15.5 g/dl (13.5-17.5); MEAN CORPUSCULAR HEMOGLOBIN 32.2 pg (27.0-33.0); MEAN CORPUSCULAR HGB CONC 34.1 g/dl (32.0-36.5); MEAN CORPUSCULAR VOLUME 94.4 fl (80.0-96.0); PLATELET COUNT, AUTOMATED 211 10^3/uL (150-450); RED BLOOD COUNT 4.82 10^6/uL (4.30-6.10); WHITE BLOOD COUNT 7.5 10^3/uL (4.0-10.0)
[2021-05-01 13:48] LABS: ACETAMINOPHEN LEVEL < 2.0 UG/ML (10.0-30.0); ALBUMIN 3.2 GM/DL (3.2-5.2); ALT/SGPT 75 U/L (12-78); BILIRUBIN,DIRECT 0.2 MG/DL (0.0-0.2); BILIRUBIN,TOTAL 0.4 MG/DL (0.2-1.0); BLOOD UREA NITROGEN 8 MG/DL (7-18); CALCIUM LEVEL 8.4 MG/DL (8.5-10.1); CARBON DIOXIDE LEVEL 25 MEQ/L (21-32); CHLORIDE LEVEL 109 MEQ/L (98-107); CREATININE FOR GFR 0.69 MG/DL (0.70-1.30); ETHYL ALCOHOL (ETHANOL) 0.227 % (0.000-0.010); GLOMERULAR FILTRATION RATE > 60.0 (>60); GLUCOSE, FASTING 102 MG/DL (70-100); POTASSIUM SERUM 3.9 MEQ/L (3.5-5.1); SALICYLATE LEVEL < 1.7 MG/DL (5.0-30.0); SODIUM LEVEL 144 MEQ/L (136-145); TOTAL PROTEIN 6.4 GM/DL (6.4-8.2)
[2021-05-01] MEDS ORDERED: LORazepam 2 MG TAB PO PRN ×2 (14:20→21:45)
[2021-05-01 14:28] LABS: RSV AMPLIFICATION NEGATIVE (NEGATIVE)
[2021-05-01 15:02] LABS: AMPHETAMINES LEVEL URINE NEGATIVE (NEGATIVE); BARBITURATES URINE NEGATIVE (NEGATIVE); BENZODIAZEPINES URINE NEGATIVE (NEGATIVE); CANNABINOIDS URINE NEGATIVE (NEGATIVE); COCAINE METABOLITE URINE NEGATIVE (NEGATIVE); METHADONE URINE NEGATIVE (NEGATIVE); OPIATES URINE NEGATIVE (NEGATIVE); PHENCYCLIDINE URINE NEGATIVE (NEGATIVE)
[2021-05-01] MEDS ORDERED: HOME MED LIST COMPLETE! XX SCH (18:45)
[2021-05-01] MEDS ORDERED: THIAMINE 100 MG TAB PO SCH (21:00)
[2021-05-01] MEDS ORDERED: MAALOX 30 ML SUSP *UDC PO PRN (21:45)
[2021-05-01] MEDS ORDERED: ACETAMINOPHEN TAB 650MG DOSE (2X325MG) PO PRN (21:45)
[2021-05-01] MEDS ORDERED: MOM 30ML SUSPENSION UDC PO PRN (21:45)
[2021-05-01] MEDS ORDERED: traZODone 50 MG TAB PO PRN (21:45)
[2021-05-01] MEDS ORDERED: SUMAtriptan SUCCINATE 6 MG/0.5 ML VIAL SC PRN (21:45)
[2021-05-01] MEDS ORDERED: ALPRAZolam 0.5 MG TAB PO PRN (21:45)
[2021-05-01 23:18] VITALS: BP 182/114
[2021-05-01 23:22] VITALS: BP 182/114
[2021-05-01] MEDS: TAMSULOSIN 0.4 MG CAP PO SCH (23:59)
[2021-05-02 00:25] VITALS: BP 174/112
[2021-05-02] MEDS ORDERED: chlordiazePOXIDE 25 MG CAP PO ONE (01:00)
[2021-05-02 02:41] VITALS: BP 158/88
[2021-05-02] MEDS: LEVOTHYROXINE 75MCG TABLET (0.075MG) PO SCH (05:28)
[2021-05-02] MEDS: OXAZEPAM 15 MG CAP PO SCH ×4 (05:28→23:55)
[2021-05-02 06:24] VITALS: BP 131/71
[2021-05-02] MEDS: NICOTINE 21MG/24HR 1 EA TRANSDERMAL TD PRN (08:17)
[2021-05-02] MEDS: THIAMINE 100 MG TAB PO SCH ×2 (08:17→20:59)
[2021-05-02] MEDS: VERAPAMIL 40 MG TAB PO SCH ×4 (09:00→20:59)
[2021-05-02] MEDS ORDERED: MULTIVITAMINS/MINERALS THERAP 1 TAB PO SCH ×2 (09:00)
[2021-05-02] MEDS ORDERED: FOLIC ACID 1 MG TAB PO SCH ×2 (09:00)
[2021-05-02] MEDS: VENLAFAXINE **XR** 37.5 MG CAPSULE PO SCH (10:32)
[2021-05-02] MEDS ORDERED: OXAZEPAM 10 MG CAP PO ONE (10:35)
[2021-05-02 11:12] VITALS: BP 160/90
[2021-05-02] MEDS: IRBESARTAN 150MG TAB PO SCH (15:36)
[2021-05-02 18:16] VITALS: BP 148/76
[2021-05-02 18:30] VITALS: BP 128/70
[2021-05-02] MEDS: TAMSULOSIN 0.4 MG CAP PO SCH (20:59)
[2021-05-02] MEDS ORDERED: QUEtiapine FUMARATE 50MG TAB PO SCH (21:00)
[2021-05-03] MEDS: OXAZEPAM 15 MG CAP PO SCH ×4 (05:35→23:03)
[2021-05-03] MEDS: LEVOTHYROXINE 75MCG TABLET (0.075MG) PO SCH (05:35)
[2021-05-03 06:57] VITALS: BP 135/97
[2021-05-03] MEDS ORDERED: IRBESARTAN 150MG TAB PO SCH (09:00)
[2021-05-03] MEDS: VERAPAMIL 40 MG TAB PO SCH ×4 (09:45→20:16)
[2021-05-03] MEDS: VENLAFAXINE **XR** 37.5 MG CAPSULE PO SCH (09:45)
[2021-05-03] MEDS: IRBESARTAN 150MG TAB PO SCH (09:46)
[2021-05-03] MEDS: NICOTINE 21MG/24HR 1 EA TRANSDERMAL TD PRN (10:02)
[2021-05-03 16:02] VITALS: BP 148/86
[2021-05-03] MEDS: TAMSULOSIN 0.4 MG CAP PO SCH (20:16)
[2021-05-03] MEDS ORDERED: risperiDONE 1 MG TAB PO SCH (21:00)
[2021-05-04] MEDS: OXAZEPAM 15 MG CAP PO SCH ×3 (06:14→17:11)
[2021-05-04] MEDS: LEVOTHYROXINE 75MCG TABLET (0.075MG) PO SCH (06:14)
[2021-05-04 07:08] VITALS: BP 138/82
[2021-05-04] MEDS: IRBESARTAN 150MG TAB PO SCH (08:30)
[2021-05-04] MEDS: VERAPAMIL 40 MG TAB PO SCH ×4 (08:31→20:27)
[2021-05-04] MEDS: VENLAFAXINE **XR** 37.5 MG CAPSULE PO SCH (08:31)
[2021-05-04] MEDS: NICOTINE 21MG/24HR 1 EA TRANSDERMAL TD PRN (08:33)
[2021-05-04 17:10] VITALS: BP 140/85
[2021-05-04] MEDS: TAMSULOSIN 0.4 MG CAP PO SCH (20:27)
[2021-05-04] MEDS: risperiDONE 2 MG TAB PO SCH (20:27)
[2021-05-05] MEDS: OXAZEPAM 15 MG CAP PO SCH ×5 (02:44→20:12)
[2021-05-05 06:13] VITALS: BP 124/71
[2021-05-05] MEDS: LEVOTHYROXINE 75MCG TABLET (0.075MG) PO SCH (06:50)
[2021-05-05] MEDS: IRBESARTAN 150MG TAB PO SCH (08:42)
[2021-05-05] MEDS: VERAPAMIL 40 MG TAB PO SCH ×4 (08:43→20:14)
[2021-05-05] MEDS: VENLAFAXINE **XR** 37.5 MG CAPSULE PO SCH (08:43)
[2021-05-05] MEDS: NICOTINE 21MG/24HR 1 EA TRANSDERMAL TD PRN (09:09)
[2021-05-05] MEDS ORDERED: VENLAFAXINE **XR** 37.5 MG CAPSULE PO ONE (09:55)
[2021-05-05 16:08] VITALS: BP 139/74
[2021-05-05] MEDS: risperiDONE 2 MG TAB PO SCH (20:12)
[2021-05-05] MEDS: TAMSULOSIN 0.4 MG CAP PO SCH (20:14)
[2021-05-06] MEDS: LEVOTHYROXINE 75MCG TABLET (0.075MG) PO SCH (06:05)
[2021-05-06 06:39] VITALS: BP 143/97
[2021-05-06] MEDS: VERAPAMIL 40 MG TAB PO SCH ×4 (08:01→21:12)
[2021-05-06] MEDS: IRBESARTAN 150MG TAB PO SCH (08:01)
[2021-05-06] MEDS: VENLAFAXINE **XR** 75MG CAPSULE PO SCH (08:02)
[2021-05-06] MEDS: OXAZEPAM 15 MG CAP PO SCH ×2 (08:02→21:13)
[2021-05-06] MEDS: NICOTINE 21MG/24HR 1 EA TRANSDERMAL TD PRN (08:32)
[2021-05-06] MEDS: busPIRone 5 MG TAB PO SCH ×2 (15:18→21:12)
[2021-05-06 16:36] VITALS: BP 146/87
[2021-05-06] MEDS: TAMSULOSIN 0.4 MG CAP PO SCH (21:13)
[2021-05-06] MEDS: risperiDONE 2 MG TAB PO SCH (21:13)
[2021-05-06] MEDS: hydrOXYzine 50 MG TAB PO PRN (21:15)
[2021-05-07] MEDS: LEVOTHYROXINE 75MCG TABLET (0.075MG) PO SCH (05:59)
[2021-05-07 06:15] VITALS: BP 103/16
[2021-05-07 06:43] VITALS: BP 140/80
[2021-05-07] MEDS: busPIRone 5 MG TAB PO SCH ×2 (08:15→15:09)
[2021-05-07] MEDS: VENLAFAXINE **XR** 75MG CAPSULE PO SCH (08:15)
[2021-05-07] MEDS: VERAPAMIL 40 MG TAB PO SCH ×4 (08:15→22:02)
[2021-05-07] MEDS: IRBESARTAN 150MG TAB PO SCH (08:15)
[2021-05-07] MEDS: NICOTINE 21MG/24HR 1 EA TRANSDERMAL TD PRN (08:16)
[2021-05-07] MEDS ORDERED: OXAZEPAM 15 MG CAP PO SCH (09:00)
[2021-05-07 17:18] VITALS: BP 138/82
[2021-05-07] MEDS: busPIRone 10 MG TAB PO SCH (21:58)
[2021-05-07] MEDS: TAMSULOSIN 0.4 MG CAP PO SCH (22:02)
[2021-05-07] MEDS: risperiDONE 2 MG TAB PO SCH (22:03)
[2021-05-07] MEDS: hydrOXYzine 50 MG TAB PO PRN (22:56)
[2021-05-07 23:40] VITALS: BP 136/76
[2021-05-08] MEDS: LEVOTHYROXINE 75MCG TABLET (0.075MG) PO SCH (05:30)
[2021-05-08 06:46] VITALS: BP 142/96
[2021-05-08] MEDS: busPIRone 10 MG TAB PO SCH ×2 (08:04→21:02)
[2021-05-08] MEDS: NICOTINE 21MG/24HR 1 EA TRANSDERMAL TD PRN (08:04)
[2021-05-08] MEDS: VERAPAMIL 40 MG TAB PO SCH ×2 (08:04→12:55)
[2021-05-08] MEDS: VENLAFAXINE **XR** 75MG CAPSULE PO SCH (08:05)
[2021-05-08] MEDS: IRBESARTAN 150MG TAB PO SCH (08:05)
[2021-05-08] MEDS: DIVALPROEX 250 MG TAB PO SCH ×2 (10:15→21:02)
[2021-05-08] MEDS ORDERED: busPIRone 5 MG TAB PO SCH (13:00)
[2021-05-08 16:48] VITALS: BP 150/96
[2021-05-08] MEDS: PILL CUTTER 1 EACH XX PRN ×2 (16:52→21:03)
[2021-05-08] MEDS: VERAPAMIL 80MG TABLET PO SCH ×2 (16:54→21:03)
[2021-05-08] MEDS ORDERED: risperiDONE 3 MG TAB PO SCH (21:00)
[2021-05-08] MEDS: TAMSULOSIN 0.4 MG CAP PO SCH (21:02)
[2021-05-09] MEDS: hydrOXYzine 50 MG TAB PO PRN ×2 (01:42→17:25)
[2021-05-09] MEDS: LEVOTHYROXINE 75MCG TABLET (0.075MG) PO SCH (05:55)
[2021-05-09 06:19] VITALS: BP 151/90
[2021-05-09] MEDS: NICOTINE 21MG/24HR 1 EA TRANSDERMAL TD PRN (08:02)
[2021-05-09] MEDS: DIVALPROEX 250 MG TAB PO SCH ×2 (08:03→21:39)
[2021-05-09] MEDS: PILL CUTTER 1 EACH XX PRN ×3 (08:04→21:41)
[2021-05-09] MEDS: busPIRone 10 MG TAB PO SCH ×2 (08:04→21:39)
[2021-05-09] MEDS: IRBESARTAN 150MG TAB PO SCH (08:04)
[2021-05-09] MEDS: VENLAFAXINE **XR** 37.5 MG CAPSULE PO SCH (08:04)
[2021-05-09] MEDS: VERAPAMIL 80MG TABLET PO SCH ×4 (08:04→21:41)
[2021-05-09 17:20] VITALS: BP 139/96
[2021-05-09] MEDS: TAMSULOSIN 0.4 MG CAP PO SCH (21:39)
[2021-05-10] MEDS: LEVOTHYROXINE 75MCG TABLET (0.075MG) PO SCH (06:05)
[2021-05-10 06:28] VITALS: BP 146/81
[2021-05-10 08:21] VITALS: BP 146/81
[2021-05-10] MEDS: VERAPAMIL 80MG TABLET PO SCH ×4 (08:58→22:04)
[2021-05-10] MEDS: PILL CUTTER 1 EACH XX PRN ×3 (08:59→16:57)
[2021-05-10] MEDS: DIVALPROEX 250 MG TAB PO SCH ×2 (08:59→22:04)
[2021-05-10] MEDS: VENLAFAXINE **XR** 37.5 MG CAPSULE PO SCH (08:59)
[2021-05-10] MEDS: IRBESARTAN 150MG TAB PO SCH (08:59)
[2021-05-10] MEDS: busPIRone 10 MG TAB PO SCH ×2 (08:59→22:05)
[2021-05-10] MEDS: NICOTINE 21MG/24HR 1 EA TRANSDERMAL TD PRN (09:02)
[2021-05-10 17:00] VITALS: BP 142/80
[2021-05-10] MEDS: TAMSULOSIN 0.4 MG CAP PO SCH (22:05)
[2021-05-11] MEDS: LEVOTHYROXINE 75MCG TABLET (0.075MG) PO SCH (05:46)
[2021-05-11 06:21] VITALS: BP 131/66
[2021-05-11] MEDS: busPIRone 10 MG TAB PO SCH ×2 (08:09→21:34)
[2021-05-11] MEDS: VERAPAMIL 80MG TABLET PO SCH ×4 (08:09→21:35)
[2021-05-11] MEDS: IRBESARTAN 150MG TAB PO SCH (08:09)
[2021-05-11] MEDS: PILL CUTTER 1 EACH XX PRN (08:09)
[2021-05-11] MEDS: DIVALPROEX 250 MG TAB PO SCH ×2 (08:10→21:34)
[2021-05-11] MEDS: VENLAFAXINE **XR** 37.5 MG CAPSULE PO SCH (08:10)
[2021-05-11] MEDS: hydrOXYzine 50 MG TAB PO PRN ×2 (10:41→17:00)
[2021-05-11] MEDS: NICOTINE 21MG/24HR 1 EA TRANSDERMAL TD PRN (10:42)
[2021-05-11 18:23] VITALS: BP 128/86
[2021-05-11] MEDS: TAMSULOSIN 0.4 MG CAP PO SCH ×2 (21:36→21:40)
[2021-05-12] MEDS: LEVOTHYROXINE 75MCG TABLET (0.075MG) PO SCH (05:52)
[2021-05-12 07:21] VITALS: BP 115/58
[2021-05-12] MEDS: PILL CUTTER 1 EACH XX PRN (08:42)
[2021-05-12] MEDS: IRBESARTAN 150MG TAB PO SCH (08:42)
[2021-05-12 08:43] VITALS: BP 132/80
[2021-05-12] MEDS: DIVALPROEX 250 MG TAB PO SCH (08:43)
[2021-05-12] MEDS: VENLAFAXINE **XR** 37.5 MG CAPSULE PO SCH (08:43)
[2021-05-12] MEDS: busPIRone 10 MG TAB PO SCH (08:43)
[2021-05-12] MEDS: VERAPAMIL 80MG TABLET PO SCH (08:43)
[2021-05-12] MEDS ORDERED: BUSP10TA PO (09:48)
[2021-05-12] MEDS ORDERED: VENL37.598 PO (09:48)
[2021-05-12] MEDS ORDERED: VERA80TA3 PO (09:48)
[2021-05-12] MEDS ORDERED: DEPA250T32 PO (09:48)
[2021-05-12] MEDS ORDERED: AVAP150T31 PO (09:48)
[2021-05-12] MEDS ORDERED: FLOM0.4C39 PO (09:48)
[2021-05-12] MEDS ORDERED: LEVO75TA4 PO (09:48)
== END 2021-05-12 10:44 | disposition home or self-care (01) | DRG 754 ==
LOC: EDBD 12:46 → M ED 12:46 → M ED INP 21:42 → M PSY 23:20
PROVIDERS: ADMIT Psychiatry & Neurology Psychiatry; ATTEND Psychiatry & Neurology Psychiatry
DX: F32.9 Major depressive disorder, single episode, unspecified (principal); I10 Essential (primary) hypertension; F10.239 Alcohol dependence with withdrawal, unspecified; E03.9 Hypothyroidism, unspecified; G43.909 Migraine, unspecified, not intractable, without status migrainosus; F17.200 Nicotine dependence, unspecified, uncomplicated; N40.0 Benign prostatic hyperplasia without lower urinary tract symptoms; L30.9 Dermatitis, unspecified; Z20.822 Contact with and (suspected) exposure to COVID-19; Z79.899 Other long term (current) drug therapy

== ENCOUNTER 2021-12-09 09:57 | Emergency (ER) | payer MEDICARE, MEDICAID ==
[~2021-12-09] VITALS: Ht 175.3 cm; Wt 69.4 kg
[2021-12-09] MEDS: MULTIVITAMINS/MINERALS THERAP 1 TAB PO SCH ×2 (09:00→13:26)
[~2021-12-09 09:57] MED LIST changes: +AVAP150T31 PO; +BUPR-70 PO; +BUPR-71 PO; -BUPR100T3 PO; -BUPR150T5 PO; +DEPA250T32 PO; +FOLIC ACID 1MG TAB PO SCH; +THIAMINE 100 MG TAB PO SCH; +VENL37.598 PO; +VERA80TA3 PO
[2021-12-09] MEDS ORDERED: LORazepam 2 MG/ML VIAL IV STA (10:44)
[2021-12-09] MEDS ORDERED: OXAZEPAM 10MG CAP PO ONE (10:45)
[2021-12-09] MEDS ORDERED: LORazepam 2 MG TAB PO PRN (10:45)
[2021-12-09 11:32] LABS: BASO # 0.1 10^3/uL (0.0-0.2); BASO % 0.7 % (0.0-1.0); EOS # 0.1 10^3/uL (0.0-0.5); HEMATOCRIT 49.9 % (42.0-52.0); HEMOGLOBIN 17.1 g/dl (13.5-17.5); LYMPH # 1.3 10^3/uL (1.5-5.0); LYMPH % 15.3 % (24.0-44.0); MEAN CORPUSCULAR HEMOGLOBIN 32.9 pg (27.0-33.0); MEAN CORPUSCULAR HGB CONC 34.3 g/dl (32.0-36.5); MONO # 0.6 10^3/uL (0.0-0.8); MONO % 6.5 % (2.0-8.0); NEUTROPHILS # 6.5 10^3/uL (1.5-8.5); NEUTROPHILS % 75.6 % (36.0-66.0); PLATELET COUNT, AUTOMATED 213 10^3/uL (150-450); WHITE BLOOD COUNT 8.6 10^3/uL (4.0-10.0)
[2021-12-09 12:03] LABS: BLOOD UREA NITROGEN 8 MG/DL (7-18); CALCIUM LEVEL 9.3 MG/DL (8.5-10.1); CARBON DIOXIDE LEVEL 22 MEQ/L (21-32); CHLORIDE LEVEL 109 MEQ/L (98-107); CREATININE FOR GFR 0.58 MG/DL (0.70-1.30); ETHYL ALCOHOL (ETHANOL) 0.005 % (0.000-0.010); GLOMERULAR FILTRATION RATE > 60.0 (>60); GLUCOSE, FASTING 82 MG/DL (70-100); MAGNESIUM LEVEL 2.1 MG/DL (1.8-2.4); POTASSIUM SERUM 4.5 MEQ/L (3.5-5.1); SODIUM LEVEL 137 MEQ/L (136-145)
[2021-12-09 12:04] LABS: RSV AMPLIFICATION NEGATIVE (NEGATIVE)
[2021-12-09 12:08] LABS: AMPHETAMINES LEVEL URINE NEGATIVE (NEGATIVE); BARBITURATES URINE NEGATIVE (NEGATIVE); BENZODIAZEPINES URINE NEGATIVE (NEGATIVE); CANNABINOIDS URINE NEGATIVE (NEGATIVE); COCAINE METABOLITE URINE NEGATIVE (NEGATIVE); METHADONE URINE NEGATIVE (NEGATIVE); OPIATES URINE NEGATIVE (NEGATIVE); PHENCYCLIDINE URINE NEGATIVE (NEGATIVE)
[2021-12-09 15:55] VITALS: BP 141/87
== END 2021-12-09 15:58 | disposition short-term general hospital (02) ==
LOC: M ED 09:57
DX: F10.230 Alcohol dependence with withdrawal, uncomplicated (principal); I10 Essential (primary) hypertension; F31.9 Bipolar disorder, unspecified; F17.200 Nicotine dependence, unspecified, uncomplicated
CPT/HCPCS: 71045; 80047; 80048; 80307; 82077; 83735; 84443; 85025; 87631; 93005; 93041; 94760; 96374; 99285; J2060

== ENCOUNTER 2021-12-25 10:45 | Inpatient (IN) | payer MEDICAID, MEDICARE ==
[~2021-12-25] VITALS: Ht 175.3 cm; Wt 70.9 kg
[~2021-12-25 10:45] MED LIST changes: -FOLIC ACID 1MG TAB PO SCH; -THIAMINE 100 MG TAB PO SCH
[2021-12-25 12:39] LABS: HEMATOCRIT 49.6 % (42.0-52.0); HEMOGLOBIN 17.5 g/dl (13.5-17.5); MEAN CORPUSCULAR HEMOGLOBIN 33.4 pg (27.0-33.0); MEAN CORPUSCULAR HGB CONC 35.3 g/dl (32.0-36.5); MEAN CORPUSCULAR VOLUME 94.7 fl (80.0-96.0); PLATELET COUNT, AUTOMATED 228 10^3/uL (150-450); RED BLOOD COUNT 5.24 10^6/uL (4.30-6.10); WHITE BLOOD COUNT 9.8 10^3/uL (4.0-10.0)
[2021-12-25] MEDS ORDERED: IRBESARTAN 150MG TAB PO ONE (13:00)
[2021-12-25] MEDS ORDERED: VERAPAMIL 40 MG TAB PO ONE ×2 (13:00→21:05)
[2021-12-25] MEDS ORDERED: PROPRANOLOL 20 MG TAB PO ONE (13:00)
[2021-12-25 13:17] LABS: AMPHETAMINES LEVEL URINE NEGATIVE (NEGATIVE); BARBITURATES URINE NEGATIVE (NEGATIVE); BENZODIAZEPINES URINE NEGATIVE (NEGATIVE); CANNABINOIDS URINE NEGATIVE (NEGATIVE); COCAINE METABOLITE URINE NEGATIVE (NEGATIVE); METHADONE URINE NEGATIVE (NEGATIVE); OPIATES URINE NEGATIVE (NEGATIVE); PHENCYCLIDINE URINE NEGATIVE (NEGATIVE)
[2021-12-25 13:38] LABS: ACETAMINOPHEN LEVEL < 2.0 UG/ML (10.0-30.0); ALBUMIN 3.7 GM/DL (3.2-5.2); ALT/SGPT 34 U/L (12-78); BILIRUBIN,DIRECT 0.1 MG/DL (0.0-0.2); BILIRUBIN,TOTAL 0.3 MG/DL (0.2-1.0); BLOOD UREA NITROGEN 5 MG/DL (7-18); CARBON DIOXIDE LEVEL 23 MEQ/L (21-32); CHLORIDE LEVEL 112 MEQ/L (98-107); CREATININE FOR GFR 0.68 MG/DL (0.70-1.30); ETHYL ALCOHOL (ETHANOL) 0.122 % (0.000-0.010); GLOMERULAR FILTRATION RATE > 60.0 (>60); GLUCOSE, FASTING 66 MG/DL (70-100); POTASSIUM SERUM 4.3 MEQ/L (3.5-5.1); SALICYLATE LEVEL 4.2 MG/DL (5.0-30.0); SODIUM LEVEL 142 MEQ/L (136-145); TOTAL PROTEIN 7.5 GM/DL (6.4-8.2)
[2021-12-25 14:03] LABS: RSV AMPLIFICATION NEGATIVE (NEGATIVE)
[2021-12-25] MEDS ORDERED: IRBE150T7 PO (14:36)
[2021-12-25] MEDS ORDERED: TAMS1CAP17 PO (14:36)
[2021-12-25] MEDS ORDERED: VERA120T83 PO (14:36)
[2021-12-25] MEDS ORDERED: B-1100TA2 PO (14:36)
[2021-12-25] MEDS ORDERED: LEVO75TA4 PO (14:36)
[2021-12-25] MEDS ORDERED: PARO20TA3 PO (14:36)
[2021-12-25] MEDS ORDERED: PROP40TA62 PO (14:36)
[2021-12-25] MEDS ORDERED: ZOLP10TA2 PO (14:36)
[2021-12-25] MEDS ORDERED: HOME MED LIST COMPLETE! XX SCH (14:40)
[2021-12-25] MEDS: VALPROIC ACID 250MG/5ML SOL ORAL SYRINGE *DRAW UP EXACT DOSE PO SCH (21:00)
[2021-12-25] MEDS ORDERED: VALPROIC ACID 250MG CAP PO SCH (21:00)
[2021-12-25] MEDS: THIAMINE 100 MG TAB PO SCH (21:00)
[2021-12-25] MEDS: PROPRANOLOL 20 MG TAB PO SCH (21:00)
[2021-12-25] MEDS ORDERED: MAALOX 30 ML SUSP *UDC PO PRN (21:50)
[2021-12-25] MEDS ORDERED: traZODone 50 MG TAB PO PRN (21:50)
[2021-12-25] MEDS ORDERED: MOM 30ML SUSPENSION UDC PO PRN (21:50)
[2021-12-25] MEDS ORDERED: LORazepam 2 MG TAB PO PRN ×2 (21:50→22:45)
[2021-12-25] MEDS ORDERED: LORazepam 2 MG TAB PO SCH ×2 (21:50)
[2021-12-25] MEDS ORDERED: ACETAMINOPHEN TAB 650MG DOSE (2X325MG) PO PRN (21:50)
[2021-12-25] MEDS ORDERED: LORazepam 1 MG TAB PO SCH ×2 (21:50)
[2021-12-25] MEDS ORDERED: NICOTINE POLACRILEX 2 MG GUM PO ONE (22:00)
[2021-12-25] MEDS ORDERED: zolPIDEM TARTRATE 5 MG TAB PO ONE (22:00)
[2021-12-26] VITALS (7 sets, daily range): BP systolic 120–182; BP diastolic 68–90
[2021-12-26] MEDS: FOLIC ACID 1MG TAB PO SCH (08:13)
[2021-12-26] MEDS: IRBESARTAN 150MG TAB PO SCH (08:13)
[2021-12-26] MEDS: MULTIVITAMINS/MINERALS THERAP 1 TAB PO SCH (08:13)
[2021-12-26] MEDS: THIAMINE 100 MG TAB PO SCH ×2 (08:14→20:23)
[2021-12-26] MEDS: PROPRANOLOL 20 MG TAB PO SCH ×2 (08:14→20:23)
[2021-12-26] MEDS: PARoxetine 20MG TABLET PO SCH (08:15)
[2021-12-26] MEDS: VALPROIC ACID 250MG/5ML SOL ORAL SYRINGE *DRAW UP EXACT DOSE PO SCH (08:19)
[2021-12-26] MEDS ORDERED: VERAPAMIL 40 MG TAB PO SCH ×2 (09:00)
[2021-12-26] MEDS ORDERED: FOLIC ACID 1MG TAB PO SCH ×2 (09:00)
[2021-12-26] MEDS ORDERED: PROPRANOLOL 20 MG TAB PO SCH (09:00)
[2021-12-26] MEDS ORDERED: MULTIVITAMINS/MINERALS THERAP 1 TAB PO SCH ×2 (09:00)
[2021-12-26] MEDS ORDERED: THIAMINE 100 MG TAB PO SCH ×2 (09:00)
[2021-12-26] MEDS: NICOTINE 21MG/24HR 1 EA TRANSDERMAL TD SCH (09:52)
[2021-12-26] MEDS: LEVOTHYROXINE 75MCG TABLET (0.075MG) PO SCH (12:54)
[2021-12-26] MEDS: VERAPAMIL 40 MG TAB PO SCH ×3 (12:57→20:25)
[2021-12-26] MEDS: VERAPAMIL 80MG TABLET PO SCH ×3 (12:57→20:24)
[2021-12-26] MEDS: OXAZEPAM 10MG CAP PO SCH ×2 (14:05→22:07)
[2021-12-26] MEDS: TAMSULOSIN 0.4 MG CAP PO SCH (20:23)
[2021-12-26] MEDS: DIVALPROEX 250 MG TAB PO SCH (20:23)
[2021-12-27] MEDS: OXAZEPAM 10MG CAP PO SCH ×3 (06:07→22:16)
[2021-12-27] MEDS: LEVOTHYROXINE 75MCG TABLET (0.075MG) PO SCH (06:07)
[2021-12-27 06:31] VITALS: BP 128/69
[2021-12-27 06:44] VITALS: BP 128/69
[2021-12-27] MEDS: PARoxetine 20MG TABLET PO SCH (08:19)
[2021-12-27] MEDS: NICOTINE 21MG/24HR 1 EA TRANSDERMAL TD SCH (08:19)
[2021-12-27] MEDS: MULTIVITAMINS/MINERALS THERAP 1 TAB PO SCH (08:20)
[2021-12-27] MEDS: DIVALPROEX 250 MG TAB PO SCH (08:20)
[2021-12-27] MEDS: VERAPAMIL 40 MG TAB PO SCH ×4 (08:21→21:00)
[2021-12-27] MEDS: PROPRANOLOL 20 MG TAB PO SCH ×2 (08:21→21:00)
[2021-12-27] MEDS: VERAPAMIL 80MG TABLET PO SCH ×4 (08:21→21:00)
[2021-12-27] MEDS: FOLIC ACID 1MG TAB PO SCH (08:22)
[2021-12-27] MEDS: THIAMINE 100 MG TAB PO SCH ×2 (08:22→20:47)
[2021-12-27] MEDS: IRBESARTAN 150MG TAB PO SCH (08:22)
[2021-12-27] MEDS ORDERED: DIVALPROEX 250 MG TAB PO ONE (11:35)
[2021-12-27 15:00] VITALS: BP 140/80
[2021-12-27 18:00] VITALS: BP 159/86
[2021-12-27 20:00] VITALS: BP 130/79
[2021-12-27] MEDS: DIVALPROEX 500 MG TAB PO SCH (20:47)
[2021-12-27] MEDS: TAMSULOSIN 0.4 MG CAP PO SCH (20:47)
[2021-12-28] MEDS: LEVOTHYROXINE 75MCG TABLET (0.075MG) PO SCH (06:14)
[2021-12-28] MEDS: OXAZEPAM 10MG CAP PO SCH ×3 (06:17→22:06)
[2021-12-28 06:58] VITALS: BP 130/79
[2021-12-28 07:13] VITALS: BP 127/71
[2021-12-28] MEDS: NICOTINE 21MG/24HR 1 EA TRANSDERMAL TD SCH (09:54)
[2021-12-28] MEDS: VERAPAMIL 80MG TABLET PO SCH ×4 (09:55→21:00)
[2021-12-28] MEDS: VERAPAMIL 40 MG TAB PO SCH ×4 (09:56→21:00)
[2021-12-28] MEDS: MULTIVITAMINS/MINERALS THERAP 1 TAB PO SCH (09:57)
[2021-12-28] MEDS: PROPRANOLOL 20 MG TAB PO SCH ×2 (09:57→21:00)
[2021-12-28] MEDS: FOLIC ACID 1MG TAB PO SCH (09:57)
[2021-12-28] MEDS: THIAMINE 100 MG TAB PO SCH (09:57)
[2021-12-28] MEDS: IRBESARTAN 150MG TAB PO SCH (09:58)
[2021-12-28] MEDS: PARoxetine 20MG TABLET PO SCH (09:58)
[2021-12-28] MEDS: DIVALPROEX 500 MG TAB PO SCH ×2 (09:58→22:06)
[2021-12-28] MEDS: NICOTINE POLACRILEX 2 MG GUM PO PRN ×3 (13:47→22:06)
[2021-12-28 16:43] VITALS: BP 137/98
[2021-12-28] MEDS: TAMSULOSIN 0.4 MG CAP PO SCH (22:06)
[2021-12-29] MEDS: LEVOTHYROXINE 75MCG TABLET (0.075MG) PO SCH (05:49)
[2021-12-29] MEDS: OXAZEPAM 10MG CAP PO SCH ×2 (05:49→21:40)
[2021-12-29] MEDS: NICOTINE POLACRILEX 2 MG GUM PO PRN ×4 (06:41→21:40)
[2021-12-29 06:42] VITALS: BP 125/62
[2021-12-29] MEDS: IRBESARTAN 150MG TAB PO SCH (07:30)
[2021-12-29] MEDS: DIVALPROEX 500 MG TAB PO SCH ×2 (07:30→21:41)
[2021-12-29] MEDS: VENLAFAXINE **XR** 37.5 MG CAPSULE PO SCH (07:31)
[2021-12-29] MEDS: NICOTINE 21MG/24HR 1 EA TRANSDERMAL TD SCH (07:31)
[2021-12-29] MEDS: VERAPAMIL 80MG TABLET PO SCH ×4 (08:58→21:00)
[2021-12-29] MEDS: VERAPAMIL 40 MG TAB PO SCH ×4 (08:58→21:00)
[2021-12-29] MEDS: PROPRANOLOL 20 MG TAB PO SCH ×2 (08:58→21:00)
[2021-12-29 12:21] VITALS: BP 146/90
[2021-12-29 16:51] VITALS: BP 138/78
[2021-12-29] MEDS: TAMSULOSIN 0.4 MG CAP PO SCH (21:41)
[2021-12-30] MEDS ORDERED: OLANZapine ORAL DISINTEGRATING TAB 5MG PO ONE (00:55)
[2021-12-30] MEDS: LEVOTHYROXINE 75MCG TABLET (0.075MG) PO SCH (05:58)
[2021-12-30 06:40] VITALS: BP 114/58
[2021-12-30 09:53] VITALS: BP 122/78
[2021-12-30] MEDS: IRBESARTAN 150MG TAB PO SCH (09:56)
[2021-12-30] MEDS: VERAPAMIL 80MG TABLET PO SCH ×4 (09:56→21:00)
[2021-12-30] MEDS: VERAPAMIL 40 MG TAB PO SCH ×4 (09:56→21:00)
[2021-12-30] MEDS: OXAZEPAM 10MG CAP PO SCH ×2 (09:57→21:16)
[2021-12-30] MEDS: PROPRANOLOL 20 MG TAB PO SCH ×2 (09:57→21:00)
[2021-12-30] MEDS: VENLAFAXINE **XR** 37.5 MG CAPSULE PO SCH (09:57)
[2021-12-30] MEDS: DIVALPROEX 500 MG TAB PO SCH (09:57)
[2021-12-30] MEDS: NICOTINE POLACRILEX 2 MG GUM PO PRN ×3 (09:58→19:30)
[2021-12-30 16:43] VITALS: BP 142/91
[2021-12-30] MEDS: QUEtiapine FUMARATE 100 MG TAB PO PRN (21:16)
[2021-12-30] MEDS: TAMSULOSIN 0.4 MG CAP PO SCH (21:16)
[2021-12-31] MEDS: LEVOTHYROXINE 75MCG TABLET (0.075MG) PO SCH (05:52)
[2021-12-31 06:52] VITALS: BP 143/65
[2021-12-31] MEDS: NICOTINE POLACRILEX 2 MG GUM PO PRN ×4 (07:18→19:53)
[2021-12-31] MEDS: OXAZEPAM 10MG CAP PO SCH (08:14)
[2021-12-31] MEDS: IRBESARTAN 150MG TAB PO SCH (08:14)
[2021-12-31] MEDS: VENLAFAXINE **XR** 37.5 MG CAPSULE PO SCH (08:14)
[2021-12-31] MEDS: VERAPAMIL 40 MG TAB PO SCH ×4 (08:15→21:41)
[2021-12-31] MEDS: PROPRANOLOL 20 MG TAB PO SCH ×2 (08:15→21:43)
[2021-12-31] MEDS: VERAPAMIL 80MG TABLET PO SCH ×4 (08:16→21:45)
[2021-12-31] MEDS: DIVALPROEX 500MG *ER* TAB PO SCH (08:16)
[2021-12-31 18:43] VITALS: BP 132/82
[2021-12-31] MEDS: TAMSULOSIN 0.4 MG CAP PO SCH (21:42)
[2021-12-31] MEDS: QUEtiapine FUMARATE 100 MG TAB PO PRN (21:45)
[2022-01-01] MEDS: LEVOTHYROXINE 75MCG TABLET (0.075MG) PO SCH (05:41)
[2022-01-01 06:16] VITALS: BP 117/63
[2022-01-01] MEDS: NICOTINE POLACRILEX 2 MG GUM PO PRN ×4 (07:46→21:36)
[2022-01-01 07:52] VITALS: BP_SYST 12; BP_SYST 120; BP_DIAS 72
[2022-01-01] MEDS: DIVALPROEX 500MG *ER* TAB PO SCH (07:53)
[2022-01-01] MEDS: OXAZEPAM 10MG CAP PO SCH (07:53)
[2022-01-01] MEDS: VENLAFAXINE **XR** 75MG CAPSULE PO SCH (07:54)
[2022-01-01] MEDS: VERAPAMIL 80MG TABLET PO SCH ×4 (07:54→21:00)
[2022-01-01] MEDS: VERAPAMIL 40 MG TAB PO SCH ×4 (07:55→21:00)
[2022-01-01] MEDS: PROPRANOLOL 20 MG TAB PO SCH ×2 (07:55→21:00)
[2022-01-01] MEDS: IRBESARTAN 150MG TAB PO SCH (07:56)
[2022-01-01 12:49] VITALS: BP 118/74
[2022-01-01 16:51] VITALS: BP 132/80
[2022-01-01] MEDS: QUEtiapine FUMARATE 100 MG TAB PO PRN (21:36)
[2022-01-01] MEDS: TAMSULOSIN 0.4 MG CAP PO SCH (21:36)
[2022-01-02] MEDS: LEVOTHYROXINE 75MCG TABLET (0.075MG) PO SCH (05:52)
[2022-01-02 06:10] VITALS: BP 122/62
[2022-01-02 08:46] VITALS: BP 122/82
[2022-01-02] MEDS: NICOTINE POLACRILEX 2 MG GUM PO PRN ×4 (08:49→21:08)
[2022-01-02] MEDS: VERAPAMIL 80MG TABLET PO SCH ×4 (08:50→21:00)
[2022-01-02] MEDS: VERAPAMIL 40 MG TAB PO SCH ×4 (08:50→21:00)
[2022-01-02] MEDS: OXAZEPAM 10MG CAP PO SCH (08:51)
[2022-01-02] MEDS: IRBESARTAN 150MG TAB PO SCH (08:51)
[2022-01-02] MEDS: DIVALPROEX 500MG *ER* TAB PO SCH (08:51)
[2022-01-02] MEDS: VENLAFAXINE **XR** 75MG CAPSULE PO SCH (08:51)
[2022-01-02] MEDS: PROPRANOLOL 20 MG TAB PO SCH ×2 (08:51→21:00)
[2022-01-02 16:54] VITALS: BP 144/90
[2022-01-02] MEDS: QUEtiapine FUMARATE 100 MG TAB PO PRN (21:08)
[2022-01-02] MEDS: TAMSULOSIN 0.4 MG CAP PO SCH (21:08)
[2022-01-03] MEDS: LEVOTHYROXINE 75MCG TABLET (0.075MG) PO SCH (05:51)
[2022-01-03 06:31] VITALS: BP 105/52
[2022-01-03 08:51] VITALS: BP 118/78
[2022-01-03] MEDS: NICOTINE POLACRILEX 2 MG GUM PO PRN ×4 (08:54→21:03)
[2022-01-03] MEDS: PROPRANOLOL 20 MG TAB PO SCH ×2 (08:54→21:01)
[2022-01-03] MEDS: IRBESARTAN 150MG TAB PO SCH (08:55)
[2022-01-03] MEDS: DIVALPROEX 500MG *ER* TAB PO SCH (08:55)
[2022-01-03] MEDS: VERAPAMIL 40 MG TAB PO SCH ×4 (08:55→21:00)
[2022-01-03] MEDS: VENLAFAXINE **XR** 75MG CAPSULE PO SCH (08:55)
[2022-01-03] MEDS: VERAPAMIL 80MG TABLET PO SCH ×4 (08:55→21:00)
[2022-01-03 13:02] VITALS: BP 133/83
[2022-01-03 16:59] VITALS: BP 144/99
[2022-01-03] MEDS: QUEtiapine FUMARATE 100 MG TAB PO PRN (21:01)
[2022-01-03] MEDS: TAMSULOSIN 0.4 MG CAP PO SCH (21:01)
[2022-01-04] MEDS: LEVOTHYROXINE 75MCG TABLET (0.075MG) PO SCH (05:58)
[2022-01-04 06:26] VITALS: BP 116/58
[2022-01-04] MEDS: VERAPAMIL 40 MG TAB PO SCH ×4 (09:20→22:15)
[2022-01-04] MEDS: IRBESARTAN 150MG TAB PO SCH (09:20)
[2022-01-04] MEDS: VERAPAMIL 80MG TABLET PO SCH ×4 (09:20→22:15)
[2022-01-04] MEDS: PROPRANOLOL 20 MG TAB PO SCH ×2 (09:21→22:15)
[2022-01-04] MEDS: VENLAFAXINE **XR** 75MG CAPSULE PO SCH (09:21)
[2022-01-04] MEDS: DIVALPROEX 500MG *ER* TAB PO SCH (09:21)
[2022-01-04] MEDS: NICOTINE POLACRILEX 2 MG GUM PO PRN ×4 (09:22→22:13)
[2022-01-04 18:08] VITALS: BP 140/86
[2022-01-04] MEDS: QUEtiapine FUMARATE 100 MG TAB PO PRN (22:12)
[2022-01-04] MEDS: TAMSULOSIN 0.4 MG CAP PO SCH (22:13)
[2022-01-05] MEDS: LEVOTHYROXINE 75MCG TABLET (0.075MG) PO SCH (05:36)
[2022-01-05 06:22] VITALS: BP 128/64
[2022-01-05] MEDS: NICOTINE POLACRILEX 2 MG GUM PO PRN (06:49)
[2022-01-05] MEDS ORDERED: VENL75CA47 PO (08:29)
[2022-01-05] MEDS ORDERED: PROP40TA62 PO (08:29)
[2022-01-05] MEDS ORDERED: LEVO75TA4 PO (08:29)
[2022-01-05] MEDS ORDERED: NICO2GUM PO (08:29)
[2022-01-05] MEDS ORDERED: DEPA500T2 PO (08:29)
[2022-01-05] MEDS ORDERED: IRBE150T7 PO (08:29)
[2022-01-05] MEDS ORDERED: TAMS1CAP17 PO (08:29)
[2022-01-05] MEDS ORDERED: QUET100T2 PO (08:29)
[2022-01-05] MEDS: VENLAFAXINE **XR** 75MG CAPSULE PO SCH (08:37)
[2022-01-05 08:38] VITALS: BP 128/76
[2022-01-05] MEDS: VERAPAMIL 40 MG TAB PO SCH (08:38)
[2022-01-05] MEDS: VERAPAMIL 80MG TABLET PO SCH (08:38)
[2022-01-05] MEDS: PROPRANOLOL 20 MG TAB PO SCH (08:39)
[2022-01-05] MEDS: DIVALPROEX 500MG *ER* TAB PO SCH (08:39)
[2022-01-05] MEDS: IRBESARTAN 150MG TAB PO SCH (08:41)
== END 2022-01-05 10:25 | disposition home or self-care (01) | DRG 753 ==
LOC: M ED 10:45 → M ED INP 21:49 → M PSY 23:39
PROVIDERS: ADMIT Psychiatry & Neurology Psychiatry; ATTEND Psychiatry & Neurology Psychiatry
DX: F31.9 Bipolar disorder, unspecified (principal); Z91.14 Patient's other noncompliance with medication regimen; R45.851 Suicidal ideations; F42.9 Obsessive-compulsive disorder, unspecified; F60.3 Borderline personality disorder; F41.1 Generalized anxiety disorder; F40.00 Agoraphobia, unspecified; F40.240 Claustrophobia; I10 Essential (primary) hypertension; E03.9 Hypothyroidism, unspecified; G44.009 Cluster headache syndrome, unspecified, not intractable; F17.210 Nicotine dependence, cigarettes, uncomplicated; L30.9 Dermatitis, unspecified; N40.0 Benign prostatic hyperplasia without lower urinary tract symptoms; Z90.49 Acquired absence of other specified parts of digestive tract; F10.230 Alcohol dependence with withdrawal, uncomplicated; Z71.6 Tobacco abuse counseling; Z20.822 Contact with and (suspected) exposure to COVID-19; Z79.890 Hormone replacement therapy; Z79.899 Other long term (current) drug therapy; Z91.51 Personal history of suicidal behavior; Z59.00 Homelessness unspecified

== ENCOUNTER 2022-03-23 23:33 | Emergency (ER) | payer MEDICARE, MEDICAID ==
[~2022-03-23] VITALS: Ht 175.3 cm; Wt 77.7 kg
[~2022-03-23 23:33] MED LIST changes: +B-1100TA2 PO; -PAXI10TA12 PO; +PAXI10TA13 PO; -PAXI20TA29 PO; +PAXI20TA30 PO; +PROP40TA62 PO; +QUET100T2 PO; +TAMS1CAP17 PO; +VENL75CA47 PO; +ZOLP10TA2 PO
[2022-03-23] MEDS ORDERED: ALPR1TAB3 (23:43)
[2022-03-23] MEDS ORDERED: ZOLP10TA2 (23:43)
[2022-03-23] MEDS ORDERED: PARO20TA3 (23:43)
[2022-03-23] MEDS ORDERED: LITH150C (23:43)
[2022-03-23] MEDS ORDERED: BUPR1TAB52 (23:44)
[2022-03-24 00:23] LABS: HEMATOCRIT 47.9 % (42.0-52.0); HEMOGLOBIN 16.3 g/dl (13.5-17.5); MEAN CORPUSCULAR HEMOGLOBIN 32.2 pg (27.0-33.0); MEAN CORPUSCULAR VOLUME 94.7 fl (80.0-96.0); PLATELET COUNT, AUTOMATED 247 10^3/uL (150-450); RED BLOOD COUNT 5.06 10^6/uL (4.30-6.10); WHITE BLOOD COUNT 9.7 10^3/uL (4.0-10.0)
[2022-03-24 01:58] LABS: ETHYL ALCOHOL (ETHANOL) 0.245 % (0.000-0.010)
[2022-03-24 02:00] LABS: BILIRUBIN,DIRECT < 0.1 MG/DL (<0.4); SALICYLATE LEVEL < 3.0 MG/DL (<30)
[2022-03-24 02:01] LABS: ACETAMINOPHEN LEVEL < 2.0 UG/ML (10.0-20.0); ALBUMIN 3.5 G/DL (3.2-5.2); ALKALINE PHOSPHATASE 88 U/L (46-116); ALT/SGPT 43 U/L (7.0-40); AST/SGOT 16 U/L (<34); BILIRUBIN,TOTAL 0.2 MG/DL (0.3-1.2); BLOOD UREA NITROGEN 13 MG/DL (9-23); CARBON DIOXIDE LEVEL 23 MMOL/L (20-31); CHLORIDE LEVEL 106 MMOL/L (98-107); CREATININE FOR GFR 0.68 MG/DL (0.70-1.30); GLOMERULAR FILTRATION RATE > 60.0 (>60); GLUCOSE, FASTING 92 MG/DL (60-100); POTASSIUM SERUM 4.1 MMOL/L (3.5-5.1); SODIUM LEVEL 142 MMOL/L (136-145); TOTAL PROTEIN 6.9 G/DL (5.7-8.2)
[2022-03-24 02:04] LABS: THYROID STIMULATING HORMONE 1.774 uIU/ML (0.55-4.78)
[2022-03-24 02:26] LABS: LITHIUM LEVEL < 0.10 MMOL/L (0.60-1.20)
[2022-03-24 04:17] LABS: AMPHETAMINES LEVEL URINE NEGATIVE (NEGATIVE); BARBITURATES URINE NEGATIVE (NEGATIVE); COCAINE METABOLITE URINE NEGATIVE (NEGATIVE); METHADONE URINE NEGATIVE (NEGATIVE); OPIATES URINE NEGATIVE (NEGATIVE)
[2022-03-24 04:18] LABS: CANNABINOIDS URINE NEGATIVE (NEGATIVE); PHENCYCLIDINE URINE NEGATIVE (NEGATIVE)
[2022-03-24 04:21] LABS: BENZODIAZEPINES URINE POSITIVE (NEGATIVE)
[2022-03-24 07:30] VITALS: BP 121/76
[2022-03-24] MEDS ORDERED: ALPR1TAB3 PO (22:04)
[2022-03-24] MEDS ORDERED: PARO20TA4 PO (22:04)
[2022-03-24] MEDS ORDERED: IRBE150T7 PO (22:04)
[2022-03-24] MEDS ORDERED: SYNT75TA PO (22:04)
[2022-03-24] MEDS ORDERED: ZOLP10TA2 PO (22:04)
[2022-03-24] MEDS ORDERED: PROP40TA62 PO (22:04)
[2022-03-24] MEDS ORDERED: FLOM0.4C39 PO (22:04)
[2022-03-24] MEDS ORDERED: LITH150C PO (22:04)
[2022-03-24] MEDS ORDERED: QUET100T2 PO (22:04)
== END 2022-03-24 08:58 | disposition left against medical advice (07) ==
LOC: M ED 23:33 → EDBD 23:33 → M ED 03-24 08:58
DX: T42.4X2A Poisoning by benzodiazepines, intentional self-harm, initial encounter (principal); T51.0X2A Toxic effect of ethanol, intentional self-harm, initial encounter; R00.1 Bradycardia, unspecified; F32.A Depression, unspecified; F31.9 Bipolar disorder, unspecified; F19.10 Other psychoactive substance abuse, uncomplicated; I10 Essential (primary) hypertension; E07.9 Disorder of thyroid, unspecified; Z79.899 Other long term (current) drug therapy; Z79.890 Hormone replacement therapy

== ENCOUNTER 2022-03-24 14:28 | Inpatient (IN) | payer MEDICARE, MEDICAID ==
[~2022-03-24] VITALS: Ht 175.3 cm; Wt 79.2 kg
[~2022-03-24 14:28] MED LIST changes: +LITH150C; +PARO20TA3
[2022-03-24 16:15] LABS: HEMATOCRIT 46.1 % (42.0-52.0); HEMOGLOBIN 15.8 g/dl (13.5-17.5); MEAN CORPUSCULAR HEMOGLOBIN 32.5 pg (27.0-33.0); MEAN CORPUSCULAR HGB CONC 34.3 g/dl (32.0-36.5); MEAN CORPUSCULAR VOLUME 94.9 fl (80.0-96.0); PLATELET COUNT, AUTOMATED 223 10^3/uL (150-450); RED BLOOD COUNT 4.86 10^6/uL (4.30-6.10); WHITE BLOOD COUNT 10.4 10^3/uL (4.0-10.0)
[2022-03-24 16:42] LABS: AMPHETAMINES LEVEL URINE NEGATIVE (NEGATIVE); BARBITURATES URINE NEGATIVE (NEGATIVE); BENZODIAZEPINES URINE NEGATIVE (NEGATIVE); COCAINE METABOLITE URINE NEGATIVE (NEGATIVE); METHADONE URINE NEGATIVE (NEGATIVE)
[2022-03-24 16:43] LABS: CANNABINOIDS URINE NEGATIVE (NEGATIVE); OPIATES URINE NEGATIVE (NEGATIVE); PHENCYCLIDINE URINE NEGATIVE (NEGATIVE)
[2022-03-24 16:46] LABS: ETHYL ALCOHOL (ETHANOL) 0.205 % (0.000-0.010)
[2022-03-24 16:48] LABS: ACETAMINOPHEN LEVEL < 2.0 UG/ML (10.0-20.0); ALBUMIN 3.3 G/DL (3.2-5.2); ALKALINE PHOSPHATASE 79 U/L (46-116); ALT/SGPT 38 U/L (7.0-40); AST/SGOT 14 U/L (<34); BILIRUBIN,DIRECT < 0.1 MG/DL (<0.4); BILIRUBIN,TOTAL 0.2 MG/DL (0.3-1.2); BLOOD UREA NITROGEN 12 MG/DL (9-23); CALCIUM LEVEL 8.8 MG/DL (8.5-10.1); CARBON DIOXIDE LEVEL 30 MMOL/L (20-31); CHLORIDE LEVEL 105 MMOL/L (98-107); CREATININE FOR GFR 0.75 MG/DL (0.70-1.30); GLOMERULAR FILTRATION RATE > 60.0 (>60); GLUCOSE, FASTING 75 MG/DL (60-100); POTASSIUM SERUM 4.2 MMOL/L (3.5-5.1); SALICYLATE LEVEL < 3.0 MG/DL (<30); SODIUM LEVEL 142 MMOL/L (136-145); TOTAL PROTEIN 6.6 G/DL (5.7-8.2)
[2022-03-24 16:52] LABS: LITHIUM LEVEL < 0.10 MMOL/L (0.60-1.20)
[2022-03-24 16:53] LABS: RSV AMPLIFICATION NEGATIVE (NEGATIVE)
[2022-03-24] MEDS ORDERED: METAL LOCK LOOP XX ONE (18:04)
[2022-03-24] MEDS ORDERED: VERAPAMIL 40 MG TAB PO ONE (19:45)
[2022-03-24] MEDS ORDERED: ALPRAZolam 0.5 MG TAB PO ONE (19:45)
[2022-03-24] MEDS ORDERED: TAMSULOSIN 0.4 MG CAP PO ONE (19:45)
[2022-03-24] MEDS ORDERED: PROPRANOLOL 20 MG TAB PO ONE (19:45)
[2022-03-24] MEDS ORDERED: QUEtiapine FUMARATE 100 MG TAB PO ONE (19:45)
[2022-03-24] MEDS ORDERED: zolPIDEM TARTRATE 5 MG TAB PO ONE (19:45)
[2022-03-24] MEDS ORDERED: LITH150C PO (22:04)
[2022-03-24] MEDS ORDERED: ALPR1TAB3 PO (22:04)
[2022-03-24] MEDS ORDERED: SYNT75TA PO (22:04)
[2022-03-24] MEDS ORDERED: PROP40TA62 PO (22:04)
[2022-03-24] MEDS ORDERED: PARO20TA4 PO (22:04)
[2022-03-24] MEDS ORDERED: QUET100T2 PO (22:04)
[2022-03-24] MEDS ORDERED: ZOLP10TA2 PO (22:04)
[2022-03-24] MEDS ORDERED: IRBE150T7 PO (22:04)
[2022-03-24] MEDS ORDERED: FLOM0.4C39 PO (22:04)
[2022-03-24] MEDS ORDERED: HOME MED LIST COMPLETE! XX SCH (22:10)
[2022-03-25] MEDS ORDERED: LEVOTHYROXINE 75MCG TABLET (0.075MG) PO SCH (06:00)
[2022-03-25] MEDS ORDERED: NICOTINE 21MG/24HR 1 EA TRANSDERMAL TD ONE (10:00)
[2022-03-25] MEDS ORDERED: NICOTINE POLACRILEX 2 MG GUM PO ONE (10:05)
[2022-03-25] MEDS ORDERED: zolPIDEM TARTRATE 5 MG TAB PO PRN (12:20)
[2022-03-25] MEDS ORDERED: IBUPROFEN 400MG TAB PO PRN (12:20)
[2022-03-25] MEDS ORDERED: LORazepam 2 MG TAB PO PRN (12:20)
[2022-03-25] MEDS ORDERED: MOM 30ML SUSPENSION UDC PO PRN (12:20)
[2022-03-25] MEDS ORDERED: MAALOX 30 ML SUSP *UDC PO PRN (12:20)
[2022-03-25] MEDS ORDERED: traZODone 50 MG TAB PO PRN (12:20)
[2022-03-25] MEDS: VERAPAMIL 40 MG TAB PO SCH ×3 (13:00→19:56)
[2022-03-25 14:00] VITALS: BP 154/96
[2022-03-25 15:18] VITALS: BP 154/96
[2022-03-25] MEDS: LITHIUM CARBONATE 150 MG CAP PO SCH (15:55)
[2022-03-25] MEDS: FOLIC ACID 1MG TAB PO SCH (15:55)
[2022-03-25] MEDS: MULTIVITAMINS/MINERALS THERAP 1 TAB PO SCH (15:57)
[2022-03-25] MEDS: THIAMINE 100 MG TAB PO SCH ×2 (15:57→19:56)
[2022-03-25] MEDS: PARoxetine 20MG TABLET PO SCH (15:57)
[2022-03-25] MEDS ORDERED: ALPRAZolam 0.5 MG TAB PO SCH (16:00)
[2022-03-25] MEDS: NICOTINE 21MG/24HR 1 EA TRANSDERMAL TD SCH (16:12)
[2022-03-25] MEDS ORDERED: LORazepam 2 MG TAB PO ONE (17:00)
[2022-03-25 19:26] VITALS: BP 180/90
[2022-03-25] MEDS: IRBESARTAN 150MG TAB PO SCH (19:53)
[2022-03-25] MEDS: TAMSULOSIN 0.4 MG CAP PO SCH (19:55)
[2022-03-25] MEDS: PROPRANOLOL 20 MG TAB PO SCH (19:56)
[2022-03-25] MEDS ORDERED: TAMSULOSIN 0.4 MG CAP PO SCH (21:00)
[2022-03-25] MEDS: QUEtiapine FUMARATE 100 MG TAB PO PRN (22:00)
[2022-03-25] MEDS: OLANZapine ORAL DISINTEGRATING TAB 5MG PO PRN (22:00)
[2022-03-25 22:02] VITALS: BP 165/98
[2022-03-25 22:30] VITALS: BP 165/98
[2022-03-25] MEDS ORDERED: **hydrALAZINE HCL** 25 MG TAB PO ONE (23:00)
[2022-03-26] MEDS: LEVOTHYROXINE 75MCG TABLET (0.075MG) PO SCH (05:37)
[2022-03-26 06:06] VITALS: BP 134/81
[2022-03-26 06:30] VITALS: BP 150/98
[2022-03-26] MEDS: MULTIVITAMINS/MINERALS THERAP 1 TAB PO SCH (08:27)
[2022-03-26] MEDS: LITHIUM CARBONATE 150 MG CAP PO SCH (08:28)
[2022-03-26] MEDS: PROPRANOLOL 20 MG TAB PO SCH ×2 (08:28→20:12)
[2022-03-26] MEDS: VERAPAMIL 40 MG TAB PO SCH ×4 (08:28→20:11)
[2022-03-26] MEDS: FOLIC ACID 1MG TAB PO SCH (08:28)
[2022-03-26] MEDS: THIAMINE 100 MG TAB PO SCH ×2 (08:29→20:10)
[2022-03-26] MEDS: IRBESARTAN 150MG TAB PO SCH (08:29)
[2022-03-26] MEDS: NICOTINE 21MG/24HR 1 EA TRANSDERMAL TD SCH (08:29)
[2022-03-26] MEDS: PARoxetine 20MG TABLET PO SCH (08:29)
[2022-03-26] MEDS: OLANZapine ORAL DISINTEGRATING TAB 5MG PO PRN ×2 (08:30→21:15)
[2022-03-26] MEDS: busPIRone 10 MG TAB PO SCH ×2 (12:51→20:10)
[2022-03-26 14:30] VITALS: BP 128/75
[2022-03-26 16:34] VITALS: BP 134/65
[2022-03-26] MEDS: TAMSULOSIN 0.4 MG CAP PO SCH (20:10)
[2022-03-26] MEDS: QUEtiapine FUMARATE 100 MG TAB PO PRN (20:12)
[2022-03-26 22:34] VITALS: BP 110/59
[2022-03-27] MEDS: LEVOTHYROXINE 75MCG TABLET (0.075MG) PO SCH (05:42)
[2022-03-27 06:30] VITALS: BP 101/55
[2022-03-27 06:31] VITALS: BP 101/55
[2022-03-27] MEDS: FOLIC ACID 1MG TAB PO SCH (08:50)
[2022-03-27] MEDS: NICOTINE 21MG/24HR 1 EA TRANSDERMAL TD SCH (08:50)
[2022-03-27] MEDS: LITHIUM CARBONATE 150 MG CAP PO SCH (08:51)
[2022-03-27] MEDS: VERAPAMIL 40 MG TAB PO SCH ×4 (08:51→21:33)
[2022-03-27] MEDS: busPIRone 10 MG TAB PO SCH ×2 (08:51→21:33)
[2022-03-27] MEDS: IRBESARTAN 150MG TAB PO SCH (08:51)
[2022-03-27] MEDS: MULTIVITAMINS/MINERALS THERAP 1 TAB PO SCH (08:52)
[2022-03-27] MEDS: PARoxetine 20MG TABLET PO SCH (08:52)
[2022-03-27] MEDS: PROPRANOLOL 20 MG TAB PO SCH ×2 (08:52→21:33)
[2022-03-27] MEDS: THIAMINE 100 MG TAB PO SCH ×2 (08:52→21:33)
[2022-03-27 14:05] VITALS: BP 144/72
[2022-03-27 14:49] VITALS: BP 164/82
[2022-03-27 14:50] VITALS: BP 144/72
[2022-03-27] MEDS: OLANZapine ORAL DISINTEGRATING TAB 5MG PO PRN ×2 (15:27→21:33)
[2022-03-27] MEDS: QUEtiapine FUMARATE 100 MG TAB PO PRN (21:33)
[2022-03-27] MEDS: TAMSULOSIN 0.4 MG CAP PO SCH (21:33)
[2022-03-27 22:31] VITALS: BP 132/78
[2022-03-28] MEDS: LEVOTHYROXINE 75MCG TABLET (0.075MG) PO SCH (05:31)
[2022-03-28 06:19] VITALS: BP 125/78
[2022-03-28 06:21] VITALS: BP 125/78
[2022-03-28] MEDS: PARoxetine 20MG TABLET PO SCH (08:34)
[2022-03-28] MEDS: NICOTINE 21MG/24HR 1 EA TRANSDERMAL TD SCH (08:34)
[2022-03-28] MEDS: busPIRone 10 MG TAB PO SCH ×2 (08:35→20:58)
[2022-03-28] MEDS: MULTIVITAMINS/MINERALS THERAP 1 TAB PO SCH (08:35)
[2022-03-28] MEDS: IRBESARTAN 150MG TAB PO SCH (08:35)
[2022-03-28] MEDS: VERAPAMIL 40 MG TAB PO SCH ×4 (08:35→21:00)
[2022-03-28] MEDS: PROPRANOLOL 20 MG TAB PO SCH ×2 (08:35→21:00)
[2022-03-28] MEDS: FOLIC ACID 1MG TAB PO SCH (08:35)
[2022-03-28] MEDS: LITHIUM CARBONATE 150 MG CAP PO SCH (08:35)
[2022-03-28] MEDS: OLANZapine ORAL DISINTEGRATING TAB 5MG PO PRN ×2 (11:09→21:00)
[2022-03-28 12:43] VITALS: BP 132/78
[2022-03-28 14:55] VITALS: BP 132/78
[2022-03-28 17:01] VITALS: BP 152/90
[2022-03-28] MEDS: QUEtiapine FUMARATE 100 MG TAB PO PRN (20:58)
[2022-03-28] MEDS: TAMSULOSIN 0.4 MG CAP PO SCH (21:00)
[2022-03-28 22:23] VITALS: BP 158/88
[2022-03-29] MEDS: LEVOTHYROXINE 75MCG TABLET (0.075MG) PO SCH (05:40)
[2022-03-29 06:07] VITALS: BP 118/69
[2022-03-29 06:09] VITALS: BP 118/68
[2022-03-29] MEDS: OLANZapine ORAL DISINTEGRATING TAB 5MG PO PRN (09:22)
[2022-03-29] MEDS: NICOTINE 21MG/24HR 1 EA TRANSDERMAL TD SCH (09:23)
[2022-03-29] MEDS: PARoxetine 20MG TABLET PO SCH (09:23)
[2022-03-29] MEDS: VERAPAMIL 40 MG TAB PO SCH (09:24)
[2022-03-29] MEDS: FOLIC ACID 1MG TAB PO SCH (09:24)
[2022-03-29] MEDS: IRBESARTAN 150MG TAB PO SCH (09:24)
[2022-03-29] MEDS: MULTIVITAMINS/MINERALS THERAP 1 TAB PO SCH (09:24)
[2022-03-29] MEDS: LITHIUM CARBONATE 150 MG CAP PO SCH (09:24)
[2022-03-29 09:25] VITALS: BP 118/68
[2022-03-29] MEDS: busPIRone 10 MG TAB PO SCH (09:25)
[2022-03-29] MEDS: PROPRANOLOL 20 MG TAB PO SCH (09:25)
[2022-03-29] MEDS ORDERED: BUSP10TA PO (11:10)
[2022-03-29] MEDS ORDERED: PARO20TA3 PO (11:10)
[2022-03-29] MEDS ORDERED: NICO21PAT TD (11:10)
== END 2022-03-29 13:00 | disposition home or self-care (01) | DRG 881 ==
LOC: M ED 15:25 → M ED INP 03-25 12:16 → M PSY 03-25 13:44
PROVIDERS: ADMIT Student in an Organized Health Care Education/Training Program; ATTEND Student in an Organized Health Care Education/Training Program
DX: F32.A Depression, unspecified (principal); F10.24 Alcohol dependence with alcohol-induced mood disorder; F41.9 Anxiety disorder, unspecified; F60.3 Borderline personality disorder; I10 Essential (primary) hypertension; F17.200 Nicotine dependence, unspecified, uncomplicated; E03.9 Hypothyroidism, unspecified; F60.7 Dependent personality disorder; F42.9 Obsessive-compulsive disorder, unspecified; Z91.51 Personal history of suicidal behavior; Z59.01 Sheltered homelessness; Z79.890 Hormone replacement therapy; Z79.899 Other long term (current) drug therapy; Z71.6 Tobacco abuse counseling

== ENCOUNTER 2022-05-19 13:38 | Emergency (ER) | payer MEDICARE, MEDICAID ==
[~2022-05-19] VITALS: Ht 175.3 cm; Wt 76.9 kg
[~2022-05-19 13:38] MED LIST changes: +LITH150C PO; +SYNT75TA PO
[2022-05-19] MEDS ORDERED: LORazepam 2 MG/ML 1ML VIAL IV STA ×2 (15:03→15:58)
[2022-05-19] MEDS ORDERED: NS 1,000 ML IV ONE (15:05)
[2022-05-19] MEDS ORDERED: MECLIZINE 25 MG TABLET PO ONE (15:05)
[2022-05-19 15:34] LABS: BASO # 0.1 10^3/uL (0.0-0.2); BASO % 0.9 % (0.0-1.0); EOS # 0.1 10^3/uL (0.0-0.5); EOS % 1.2 % (0.0-3.0); HEMATOCRIT 44.9 % (42.0-52.0); HEMOGLOBIN 15.5 g/dl (13.5-17.5); LYMPH % 18.1 % (24.0-44.0); MEAN CORPUSCULAR HEMOGLOBIN 32.8 pg (27.0-33.0); MEAN CORPUSCULAR HGB CONC 34.5 g/dl (32.0-36.5); MEAN CORPUSCULAR VOLUME 94.9 fl (80.0-96.0); MONO # 0.4 10^3/uL (0.0-0.8); MONO % 7.7 % (2.0-8.0); NEUTROPHILS # 4.1 10^3/uL (1.5-8.5); NEUTROPHILS % 71.4 % (36.0-66.0); PLATELET COUNT, AUTOMATED 138 10^3/uL (150-450); RED BLOOD COUNT 4.73 10^6/uL (4.30-6.10); WHITE BLOOD COUNT 5.7 10^3/uL (4.0-10.0)
[2022-05-19 16:00] LABS: ETHYL ALCOHOL (ETHANOL) 0.117 % (0.000-0.010)
[2022-05-19 16:07] LABS: ALBUMIN 3.6 G/DL (3.2-5.2); ALKALINE PHOSPHATASE 106 U/L (46-116); ALT/SGPT 355 U/L (7.0-40); AST/SGOT 269 U/L (<34); BILIRUBIN,TOTAL 0.6 MG/DL (0.3-1.2); BLOOD UREA NITROGEN 8 MG/DL (9-23); CARBON DIOXIDE LEVEL 27 MMOL/L (20-31); CHLORIDE LEVEL 106 MMOL/L (98-107); CK-MB VALUE MASS < 1.0 NG/ML (<3.6); CREATININE FOR GFR 0.61 MG/DL (0.70-1.30); FREE THYROXINE INDEX 2.3 % (1.4-3.8); GLOMERULAR FILTRATION RATE > 60.0 (>60); GLUCOSE, FASTING 98 MG/DL (60-100); MAGNESIUM LEVEL 1.5 MG/DL (1.8-2.4); POTASSIUM SERUM 3.7 MMOL/L (3.5-5.1); SODIUM LEVEL 143 MMOL/L (136-145); T UPTAKE 50.4 % (22.5-37.0); THYROID STIMULATING HORMONE 1.022 uIU/ML (0.55-4.78); THYROXINE (T4) 4.6 UG/DL (4.5-10.9); TOTAL PROTEIN 6.8 G/DL (5.7-8.2); VITAMIN B12 LEVEL 605 PG/ML (211-911)
[2022-05-19 16:08] LABS: CPK CREATINE PHOSPHOKINASE 189 U/L (46-171); FOLATE 17.66 NG/ML (>5.4); MB/CK RELATIVE INDEX 0.52 (< OR =4)
[2022-05-19] MEDS ORDERED: TOPA1TAB PO (16:54)
[2022-05-19] MEDS ORDERED: OXAZ30CA2 PO (16:54)
[2022-05-19] MEDS ORDERED: TOPIRAMATE (TopAMAX) 25 MG TAB PO ONE (16:55)
[2022-05-19] MEDS ORDERED: OXAZEPAM 15MG CAP PO ONE (16:55)
[2022-05-19] MEDS ORDERED: PROPRANOLOL 20 MG TAB PO ONE (17:10)
[2022-05-19] MEDS ORDERED: VERAPAMIL 40 MG TAB PO ONE (17:10)
[2022-05-19 17:12] VITALS: BP 158/95
[2022-05-19 17:20] VITALS: BP 158/95
[2022-05-19] MEDS ORDERED: MECL1TAB31 PO (17:24)
== END 2022-05-19 17:43 | disposition home or self-care (01) ==
LOC: M ED 13:38
DX: S06.0X0S Concussion without loss of consciousness, sequela (principal); F10.20 Alcohol dependence, uncomplicated; W01.198A Fall on same level from slipping, tripping and stumbling with subsequent striking against other object, initial encounter; Y92.89 Other specified places as the place of occurrence of the external cause; I45.10 Unspecified right bundle-branch block; I49.3 Ventricular premature depolarization; I10 Essential (primary) hypertension; K21.9 Gastro-esophageal reflux disease without esophagitis; N40.0 Benign prostatic hyperplasia without lower urinary tract symptoms; F31.9 Bipolar disorder, unspecified; F17.200 Nicotine dependence, unspecified, uncomplicated; Z79.899 Other long term (current) drug therapy; Z79.890 Hormone replacement therapy
CPT/HCPCS: 70450; 70486; 72125; 80053; 82077; 82550; 82553; 82607; 82746; 83735; 84425; 84436; 84443; 84479; 84484; 85025; 93005; 93041; 94760; 96361; 96374; 96376; 99284; J2060

== ENCOUNTER 2022-08-05 00:37 | Inpatient (IN) | payer MEDICARE, MEDICAID ==
[~2022-08-05] VITALS: Ht 172.7 cm; Wt 78.2 kg
[~2022-08-05 00:37] MED LIST changes: +MECL1TAB31 PO; +OXAZ30CA2 PO; +TOPA1TAB PO
[2022-08-05 01:15] LABS: HEMATOCRIT 49.3 % (42.0-52.0); HEMOGLOBIN 17.4 g/dl (13.5-17.5); MEAN CORPUSCULAR HEMOGLOBIN 33.5 pg (27.0-33.0); MEAN CORPUSCULAR HGB CONC 35.3 g/dl (32.0-36.5); PLATELET COUNT, AUTOMATED 209 10^3/uL (150-450); RED BLOOD COUNT 5.19 10^6/uL (4.30-6.10); WHITE BLOOD COUNT 8.4 10^3/uL (4.0-10.0)
[2022-08-05 01:44] LABS: AMPHETAMINES LEVEL URINE NEGATIVE (NEGATIVE); BARBITURATES URINE NEGATIVE (NEGATIVE); BENZODIAZEPINES URINE NEGATIVE (NEGATIVE); CANNABINOIDS URINE NEGATIVE (NEGATIVE); COCAINE METABOLITE URINE NEGATIVE (NEGATIVE); METHADONE URINE NEGATIVE (NEGATIVE); OPIATES URINE NEGATIVE (NEGATIVE); PHENCYCLIDINE URINE NEGATIVE (NEGATIVE)
[2022-08-05 01:45] LABS: ETHYL ALCOHOL (ETHANOL) 0.236 % (0.000-0.010)
[2022-08-05 01:46] LABS: ACETAMINOPHEN LEVEL < 2.0 UG/ML (10.0-20.0)
[2022-08-05 01:47] LABS: ALBUMIN 3.7 G/DL (3.2-5.2); ALKALINE PHOSPHATASE 117 U/L (46-116); ALT/SGPT 51 U/L (7.0-40); AST/SGOT 50 U/L (<34); BILIRUBIN,DIRECT 0.1 MG/DL (<0.4); BILIRUBIN,TOTAL 0.4 MG/DL (0.3-1.2); BLOOD UREA NITROGEN 8 MG/DL (9-23); CALCIUM LEVEL 8.8 MG/DL (8.5-10.1); CARBON DIOXIDE LEVEL 24 MMOL/L (20-31); CHLORIDE LEVEL 108 MMOL/L (98-107); GLOMERULAR FILTRATION RATE > 60.0 (>60); GLUCOSE, FASTING 93 MG/DL (60-100); POTASSIUM SERUM 3.8 MMOL/L (3.5-5.1); SALICYLATE LEVEL < 3.0 MG/DL (<30); SODIUM LEVEL 140 MMOL/L (136-145); TOTAL PROTEIN 7.1 G/DL (5.7-8.2)
[2022-08-05] MEDS ORDERED: BUSP10TA PO (03:04)
[2022-08-05] MEDS ORDERED: HOME MED LIST COMPLETE! XX SCH (03:05)
[2022-08-05] MEDS ORDERED: OXAZEPAM 15MG CAP PO ONE ×2 (03:50→04:30)
[2022-08-05] MEDS ORDERED: VERAPAMIL 40 MG TAB PO ONE (04:30)
[2022-08-05] MEDS ORDERED: IRBESARTAN 150MG TAB PO ONE (05:00)
[2022-08-05] MEDS ORDERED: MAALOX 30 ML SUSP *UDC PO PRN (15:15)
[2022-08-05] MEDS ORDERED: IBUPROFEN 400MG TAB PO PRN (15:15)
[2022-08-05] MEDS ORDERED: traZODone 50 MG TAB PO PRN (15:15)
[2022-08-05] MEDS ORDERED: MOM 30ML SUSPENSION UDC PO PRN (15:15)
[2022-08-05] MEDS ORDERED: ACETAMINOPHEN TAB 650MG DOSE (2X325MG) PO PRN (15:15)
[2022-08-05] MEDS: LORazepam 2 MG TAB PO PRN ×3 (16:15→19:02)
[2022-08-05] MEDS: THIAMINE 100 MG TAB PO SCH ×2 (16:15→20:14)
[2022-08-05 17:32] VITALS: BP 164/113
[2022-08-05 17:35] VITALS: BP 164/113
[2022-08-05] MEDS: MULTIVITAMINS/MINERALS THERAP 1 TAB PO SCH (17:53)
[2022-08-05] MEDS: NICOTINE 21MG/24HR 1 EA TRANSDERMAL TD SCH (17:53)
[2022-08-05] MEDS: FOLIC ACID 1MG TAB PO SCH (17:53)
[2022-08-05 18:58] VITALS: BP 160/85
[2022-08-05] MEDS: TAMSULOSIN 0.4 MG CAP PO SCH (20:14)
[2022-08-05] MEDS: OXAZEPAM 15MG CAP PO SCH (20:14)
[2022-08-05] MEDS: busPIRone 10 MG TAB PO SCH (20:14)
[2022-08-05] MEDS: LITHIUM CARBONATE 150 MG CAP PO SCH (20:14)
[2022-08-05] MEDS: PROPRANOLOL 20 MG TAB PO SCH (20:23)
[2022-08-05 21:24] VITALS: BP 140/82
[2022-08-06] MEDS: QUEtiapine FUMARATE 100 MG TAB PO PRN ×2 (00:17→21:34)
[2022-08-06] MEDS: OXAZEPAM 15MG CAP PO SCH ×5 (00:17→23:40)
[2022-08-06] MEDS: LEVOTHYROXINE 75MCG TABLET (0.075MG) PO SCH (06:06)
[2022-08-06 06:42] VITALS: BP 142/110
[2022-08-06] MEDS: busPIRone 10 MG TAB PO SCH ×2 (08:30→21:35)
[2022-08-06] MEDS: LITHIUM CARBONATE 150 MG CAP PO SCH ×2 (08:31→21:34)
[2022-08-06] MEDS: FOLIC ACID 1MG TAB PO SCH (08:31)
[2022-08-06] MEDS: MULTIVITAMINS/MINERALS THERAP 1 TAB PO SCH (08:31)
[2022-08-06] MEDS: PROPRANOLOL 20 MG TAB PO SCH ×2 (08:34→21:34)
[2022-08-06] MEDS: NICOTINE 21MG/24HR 1 EA TRANSDERMAL TD SCH (08:35)
[2022-08-06 09:00] VITALS: BP 156/95
[2022-08-06] MEDS ORDERED: PARoxetine 20MG TABLET PO SCH (09:00)
[2022-08-06] MEDS: OLANZapine ORAL DISINTEGRATING TAB 5MG PO PRN ×3 (09:56→22:56)
[2022-08-06 15:00] VITALS: BP 169/90
[2022-08-06 17:00] VITALS: BP 169/90
[2022-08-06 18:29] VITALS: BP 167/95
[2022-08-06] MEDS: TAMSULOSIN 0.4 MG CAP PO SCH (21:34)
[2022-08-06] MEDS: THIAMINE 100 MG TAB PO SCH (21:34)
[2022-08-06] MEDS ORDERED: amLODIPine 5 MG TAB PO ONE (22:00)
[2022-08-06 22:42] VITALS: BP_SYST 166; BP_DIAS 88; BP_DIAS 98
[2022-08-07] VITALS (9 sets, daily range): BP systolic 132–200; BP diastolic 76–110
[2022-08-07] MEDS: OXAZEPAM 15MG CAP PO SCH ×4 (06:04→23:54)
[2022-08-07] MEDS: LEVOTHYROXINE 75MCG TABLET (0.075MG) PO SCH (06:04)
[2022-08-07 08:03] LABS: CHOLESTEROL RISK RATIO 2.27 (<5); HDL CHOLESTEROL 88.9 MG/DL (>40); LDL CHOLESTEROL 72.9 MG/DL (<100); NON-HDL-C 113.1 MG/DL
[2022-08-07] MEDS: fluvoxaMINE MALEATE 50 MG TAB PO SCH (08:04)
[2022-08-07] MEDS: THIAMINE 100 MG TAB PO SCH ×2 (08:04→21:09)
[2022-08-07] MEDS: busPIRone 10 MG TAB PO SCH ×2 (08:04→21:10)
[2022-08-07] MEDS: MULTIVITAMINS/MINERALS THERAP 1 TAB PO SCH (08:04)
[2022-08-07] MEDS: PROPRANOLOL 20 MG TAB PO SCH ×2 (08:04→21:10)
[2022-08-07] MEDS: FOLIC ACID 1MG TAB PO SCH (08:04)
[2022-08-07] MEDS: NICOTINE 21MG/24HR 1 EA TRANSDERMAL TD SCH (08:05)
[2022-08-07] MEDS: OLANZapine ORAL DISINTEGRATING TAB 5MG PO PRN (15:57)
[2022-08-07] MEDS: IRBESARTAN 150MG TAB PO SCH (17:51)
[2022-08-07] MEDS ORDERED: VERAPAMIL 40 MG TAB PO SCH (18:00)
[2022-08-07] MEDS: LORazepam 2 MG TAB PO PRN (18:04)
[2022-08-07] MEDS: VERAPAMIL 40 MG TAB PO SCH (20:10)
[2022-08-07] MEDS: LITHIUM CARBONATE 150 MG CAP PO SCH (21:10)
[2022-08-07] MEDS: TAMSULOSIN 0.4 MG CAP PO SCH (21:10)
[2022-08-07] MEDS ORDERED: **hydrALAZINE** 50 MG TAB PO ONE (23:00)
[2022-08-08] VITALS (14 sets, daily range): BP systolic 132–200; BP diastolic 66–100
[2022-08-08] MEDS: VERAPAMIL 40 MG TAB PO SCH ×4 (02:00→20:15)
[2022-08-08] MEDS: LEVOTHYROXINE 75MCG TABLET (0.075MG) PO SCH (05:44)
[2022-08-08] MEDS: OXAZEPAM 15MG CAP PO SCH ×3 (05:44→18:18)
[2022-08-08] MEDS: fluvoxaMINE MALEATE 50 MG TAB PO SCH (07:53)
[2022-08-08] MEDS: PROPRANOLOL 20 MG TAB PO SCH ×2 (07:53→20:15)
[2022-08-08] MEDS: FOLIC ACID 1MG TAB PO SCH (07:53)
[2022-08-08] MEDS: THIAMINE 100 MG TAB PO SCH (07:53)
[2022-08-08] MEDS: MULTIVITAMINS/MINERALS THERAP 1 TAB PO SCH (07:54)
[2022-08-08] MEDS: busPIRone 10 MG TAB PO SCH ×2 (07:54→20:16)
[2022-08-08] MEDS: NICOTINE 21MG/24HR 1 EA TRANSDERMAL TD SCH (07:55)
[2022-08-08] MEDS: IRBESARTAN 150MG TAB PO SCH (09:32)
[2022-08-08] MEDS: OLANZapine ORAL DISINTEGRATING TAB 5MG PO PRN ×2 (14:25→21:00)
[2022-08-08] MEDS: TAMSULOSIN 0.4 MG CAP PO SCH (20:15)
[2022-08-08] MEDS: LITHIUM CARBONATE 150 MG CAP PO SCH (20:16)
[2022-08-08] MEDS: **hydrALAZINE HCL** 25 MG TAB PO SCH (20:16)
[2022-08-08] MEDS: QUEtiapine FUMARATE 100 MG TAB PO PRN (22:53)
[2022-08-09] MEDS: OXAZEPAM 15MG CAP PO SCH ×5 (01:07→23:23)
[2022-08-09] MEDS: VERAPAMIL 40 MG TAB PO SCH ×4 (01:08→20:58)
[2022-08-09] MEDS: **hydrALAZINE HCL** 25 MG TAB PO SCH (06:12)
[2022-08-09] MEDS: LEVOTHYROXINE 75MCG TABLET (0.075MG) PO SCH (06:12)
[2022-08-09 07:51] VITALS: BP 124/80
[2022-08-09] MEDS: busPIRone 10 MG TAB PO SCH ×2 (09:00→20:55)
[2022-08-09] MEDS: IRBESARTAN 150MG TAB PO SCH (09:00)
[2022-08-09] MEDS: FOLIC ACID 1MG TAB PO SCH (09:00)
[2022-08-09] MEDS: MULTIVITAMINS/MINERALS THERAP 1 TAB PO SCH (09:00)
[2022-08-09] MEDS: fluvoxaMINE MALEATE 50 MG TAB PO SCH (09:01)
[2022-08-09] MEDS: NICOTINE 21MG/24HR 1 EA TRANSDERMAL TD SCH (09:01)
[2022-08-09] MEDS: PROPRANOLOL 20 MG TAB PO SCH ×2 (09:01→20:57)
[2022-08-09 14:03] VITALS: BP 138/80
[2022-08-09 14:11] VITALS: BP 138/80
[2022-08-09] MEDS: OLANZapine ORAL DISINTEGRATING TAB 5MG PO PRN (16:37)
[2022-08-09] MEDS: LITHIUM CARBONATE 150 MG CAP PO SCH (20:55)
[2022-08-09] MEDS: TAMSULOSIN 0.4 MG CAP PO SCH (20:57)
[2022-08-09] MEDS: QUEtiapine FUMARATE 100 MG TAB PO PRN (22:15)
[2022-08-09 23:00] VITALS: BP 165/79
[2022-08-10] MEDS: VERAPAMIL 40 MG TAB PO SCH ×4 (02:29→20:46)
[2022-08-10] MEDS: LEVOTHYROXINE 75MCG TABLET (0.075MG) PO SCH (06:06)
[2022-08-10] MEDS: OXAZEPAM 15MG CAP PO SCH ×3 (06:06→17:55)
[2022-08-10 07:05] VITALS: BP 141/73
[2022-08-10 07:13] VITALS: BP 141/73
[2022-08-10] MEDS: NICOTINE 21MG/24HR 1 EA TRANSDERMAL TD SCH (07:49)
[2022-08-10] MEDS: IRBESARTAN 150MG TAB PO SCH (07:50)
[2022-08-10] MEDS: FOLIC ACID 1MG TAB PO SCH (07:50)
[2022-08-10] MEDS: MULTIVITAMINS/MINERALS THERAP 1 TAB PO SCH (07:51)
[2022-08-10] MEDS: fluvoxaMINE MALEATE 50 MG TAB PO SCH (07:51)
[2022-08-10] MEDS: busPIRone 10 MG TAB PO SCH ×2 (07:51→20:50)
[2022-08-10] MEDS: PROPRANOLOL 20 MG TAB PO SCH ×2 (07:51→20:51)
[2022-08-10 13:36] VITALS: BP 130/70
[2022-08-10] MEDS: OLANZapine ORAL DISINTEGRATING TAB 5MG PO PRN (13:39)
[2022-08-10 17:31] VITALS: BP 125/63
[2022-08-10] MEDS: TAMSULOSIN 0.4 MG CAP PO SCH (20:50)
[2022-08-10] MEDS: LITHIUM CARBONATE 150 MG CAP PO SCH (20:50)
[2022-08-10] MEDS: QUEtiapine FUMARATE 100 MG TAB PO PRN (20:50)
[2022-08-11] MEDS: VERAPAMIL 40 MG TAB PO SCH ×4 (00:28→20:40)
[2022-08-11] MEDS: OXAZEPAM 15MG CAP PO SCH ×4 (00:28→18:29)
[2022-08-11] MEDS: LEVOTHYROXINE 75MCG TABLET (0.075MG) PO SCH (05:17)
[2022-08-11 06:27] VITALS: BP 128/74
[2022-08-11] MEDS: FOLIC ACID 1MG TAB PO SCH (07:51)
[2022-08-11] MEDS: MULTIVITAMINS/MINERALS THERAP 1 TAB PO SCH (07:51)
[2022-08-11] MEDS: fluvoxaMINE MALEATE 50 MG TAB PO SCH (07:52)
[2022-08-11] MEDS: PROPRANOLOL 20 MG TAB PO SCH ×2 (07:52→20:39)
[2022-08-11] MEDS: IRBESARTAN 150MG TAB PO SCH (07:53)
[2022-08-11] MEDS: busPIRone 10 MG TAB PO SCH ×2 (07:53→20:39)
[2022-08-11] MEDS: NICOTINE 21MG/24HR 1 EA TRANSDERMAL TD SCH (07:54)
[2022-08-11] MEDS: OLANZapine ORAL DISINTEGRATING TAB 5MG PO PRN (13:53)
[2022-08-11 16:26] VITALS: BP 140/82
[2022-08-11] MEDS: TAMSULOSIN 0.4 MG CAP PO SCH (20:39)
[2022-08-11] MEDS: LITHIUM CARBONATE 150 MG CAP PO SCH (20:39)
[2022-08-11] MEDS: QUEtiapine FUMARATE 100 MG TAB PO PRN (23:06)
[2022-08-12] MEDS: VERAPAMIL 40 MG TAB PO SCH ×4 (01:58→20:42)
[2022-08-12] MEDS: LEVOTHYROXINE 75MCG TABLET (0.075MG) PO SCH (05:43)
[2022-08-12] MEDS: OXAZEPAM 15MG CAP PO SCH ×2 (05:43)
[2022-08-12 06:12] VITALS: BP 152/96
[2022-08-12 08:08] VITALS: BP 132/70
[2022-08-12] MEDS: fluvoxaMINE MALEATE 50 MG TAB PO SCH (08:11)
[2022-08-12] MEDS: busPIRone 10 MG TAB PO SCH ×2 (08:12→20:43)
[2022-08-12] MEDS: PROPRANOLOL 20 MG TAB PO SCH ×2 (08:12→20:43)
[2022-08-12] MEDS: FOLIC ACID 1MG TAB PO SCH (08:13)
[2022-08-12] MEDS: IRBESARTAN 150MG TAB PO SCH (08:14)
[2022-08-12] MEDS: MULTIVITAMINS/MINERALS THERAP 1 TAB PO SCH (08:14)
[2022-08-12] MEDS: NICOTINE 21MG/24HR 1 EA TRANSDERMAL TD SCH (08:15)
[2022-08-12 15:05] VITALS: BP 156/90
[2022-08-12] MEDS ORDERED: OXAZEPAM 15MG CAP PO ONE (18:00)
[2022-08-12] MEDS: TAMSULOSIN 0.4 MG CAP PO SCH (20:43)
[2022-08-12] MEDS: LITHIUM CARBONATE 150 MG CAP PO SCH (20:43)
[2022-08-12] MEDS: QUEtiapine FUMARATE 100 MG TAB PO PRN (22:04)
[2022-08-13] MEDS: VERAPAMIL 40 MG TAB PO SCH ×2 (02:00→07:52)
[2022-08-13] MEDS: LEVOTHYROXINE 75MCG TABLET (0.075MG) PO SCH (05:33)
[2022-08-13 06:33] VITALS: BP 142/77
[2022-08-13 07:50] VITALS: BP 132/78
[2022-08-13] MEDS: NICOTINE 21MG/24HR 1 EA TRANSDERMAL TD SCH (07:50)
[2022-08-13] MEDS: IRBESARTAN 150MG TAB PO SCH (07:50)
[2022-08-13] MEDS: MULTIVITAMINS/MINERALS THERAP 1 TAB PO SCH (07:51)
[2022-08-13] MEDS: FOLIC ACID 1MG TAB PO SCH (07:51)
[2022-08-13] MEDS: PROPRANOLOL 20 MG TAB PO SCH (07:51)
[2022-08-13] MEDS: busPIRone 10 MG TAB PO SCH (07:51)
[2022-08-13] MEDS: fluvoxaMINE MALEATE 50 MG TAB PO SCH (07:52)
[2022-08-13] MEDS ORDERED: LITHIUM CARBONATE 150 MG CAP PO SCH (09:00)
[2022-08-13] MEDS ORDERED: BUSP10TA PO (09:09)
[2022-08-13] MEDS ORDERED: IRBE150T7 PO (09:09)
[2022-08-13] MEDS ORDERED: LITH150C PO (09:09)
[2022-08-13] MEDS ORDERED: SYNT75TA PO (09:09)
[2022-08-13] MEDS ORDERED: VERA120T83 PO (09:09)
[2022-08-13] MEDS ORDERED: FLUV50TA PO (09:09)
[2022-08-13] MEDS ORDERED: QUET100T2 PO (09:09)
[2022-08-13] MEDS ORDERED: PROP40TA62 PO (09:09)
[2022-08-13] MEDS ORDERED: FLOM0.4C39 PO (09:09)
== END 2022-08-13 11:30 | disposition home or self-care (01) | DRG 885 ==
LOC: M ED 00:37 → M ED INP 15:14 → M PSY 17:25
PROVIDERS: ADMIT Student in an Organized Health Care Education/Training Program; ATTEND Student in an Organized Health Care Education/Training Program
DX: F31.81 Bipolar II disorder (principal); F10.24 Alcohol dependence with alcohol-induced mood disorder; R45.851 Suicidal ideations; F60.3 Borderline personality disorder; F17.200 Nicotine dependence, unspecified, uncomplicated; F11.10 Opioid abuse, uncomplicated; F10.229 Alcohol dependence with intoxication, unspecified; R45.850 Homicidal ideations; N40.0 Benign prostatic hyperplasia without lower urinary tract symptoms; E03.9 Hypothyroidism, unspecified; I10 Essential (primary) hypertension; L21.9 Seborrheic dermatitis, unspecified; F15.10 Other stimulant abuse, uncomplicated; Z81.8 Family history of other mental and behavioral disorders; Z91.51 Personal history of suicidal behavior; Z91.52 Personal history of nonsuicidal self-harm; Z56.0 Unemployment, unspecified; Z63.5 Disruption of family by separation and divorce; Z79.890 Hormone replacement therapy; Z79.899 Other long term (current) drug therapy

== ENCOUNTER 2022-10-28 05:24 | Emergency (ER) | payer MEDICARE, MEDICAID ==
[~2022-10-28] VITALS: Ht 175.3 cm; Wt 72.7 kg
[~2022-10-28 05:24] MED LIST changes: +FLUV50TA PO
[2022-10-28 05:57] LABS: HEMATOCRIT 50.8 % (42.0-52.0); HEMOGLOBIN 17.5 g/dl (13.5-17.5); MEAN CORPUSCULAR HEMOGLOBIN 32.1 pg (27.0-33.0); MEAN CORPUSCULAR HGB CONC 34.4 g/dl (32.0-36.5); PLATELET COUNT, AUTOMATED 216 10^3/uL (150-450); RED BLOOD COUNT 5.46 10^6/uL (4.30-6.10); WHITE BLOOD COUNT 9.9 10^3/uL (4.0-10.0)
[2022-10-28] MEDS ORDERED: FLUV100T25 PO (06:19)
[2022-10-28] MEDS ORDERED: VERA120T9 PO (06:19)
[2022-10-28] MEDS ORDERED: FLOM0.4C39 PO (06:19)
[2022-10-28] MEDS ORDERED: BUSP10TA PO (06:19)
[2022-10-28] MEDS ORDERED: QUET100T2 PO (06:19)
[2022-10-28] MEDS ORDERED: SYNT75TA PO (06:19)
[2022-10-28] MEDS ORDERED: IRBE150T7 PO (06:19)
[2022-10-28] MEDS ORDERED: FLUV50TA PO (06:19)
[2022-10-28] MEDS ORDERED: PROP20TA72 PO (06:19)
[2022-10-28] MEDS ORDERED: LITH150C PO (06:19)
[2022-10-28] MEDS ORDERED: VITA100093 PO (06:19)
[2022-10-28 06:25] LABS: AMPHETAMINES LEVEL URINE NEGATIVE (NEGATIVE); BARBITURATES URINE NEGATIVE (NEGATIVE); BENZODIAZEPINES URINE NEGATIVE (NEGATIVE); CANNABINOIDS URINE NEGATIVE (NEGATIVE); COCAINE METABOLITE URINE NEGATIVE (NEGATIVE); METHADONE URINE NEGATIVE (NEGATIVE); OPIATES URINE NEGATIVE (NEGATIVE); PHENCYCLIDINE URINE NEGATIVE (NEGATIVE)
[2022-10-28 06:29] LABS: ACETAMINOPHEN LEVEL < 2.0 UG/ML (10.0-20.0); ALKALINE PHOSPHATASE 105 U/L (46-116); ALT/SGPT 41 U/L (7.0-40); AST/SGOT 14 U/L (<34); BILIRUBIN,DIRECT 0.1 MG/DL (<0.4); BILIRUBIN,TOTAL 0.3 MG/DL (0.3-1.2); BLOOD UREA NITROGEN 8 MG/DL (9-23); CALCIUM LEVEL 9.3 MG/DL (8.5-10.1); CARBON DIOXIDE LEVEL 28 MMOL/L (20-31); CHLORIDE LEVEL 104 MMOL/L (98-107); GLOMERULAR FILTRATION RATE > 60.0 (>60); GLUCOSE, FASTING 87 MG/DL (60-100); POTASSIUM SERUM 3.9 MMOL/L (3.5-5.1); SODIUM LEVEL 142 MMOL/L (136-145); TOTAL PROTEIN 7.6 G/DL (5.7-8.2)
[2022-10-28 06:30] LABS: SALICYLATE LEVEL < 3.0 MG/DL (<30)
[2022-10-28 06:31] LABS: THYROID STIMULATING HORMONE 1.795 uIU/ML (0.55-4.78)
[2022-10-28] MEDS ORDERED: LORazepam 2 MG TAB PO PRN (08:00)
[2022-10-28] MEDS ORDERED: busPIRone 10 MG TAB PO ONE (08:00)
[2022-10-28] MEDS ORDERED: VERAPAMIL 40 MG TAB PO ONE (08:00)
[2022-10-28] MEDS ORDERED: PROPRANOLOL 20 MG TAB PO ONE (08:05)
[2022-10-28] MEDS ORDERED: LITHIUM CARBONATE 150 MG CAP PO ONE (08:05)
[2022-10-28] MEDS ORDERED: PROPRANOLOL 20 MG TAB PO SCH ×2 (09:00→21:00)
[2022-10-28] MEDS ORDERED: THIAMINE 100 MG TAB PO SCH (09:00)
[2022-10-28] MEDS ORDERED: FOLIC ACID 1MG TAB PO SCH (09:00)
[2022-10-28] MEDS ORDERED: fluvoxaMINE MALEATE 50 MG TAB PO SCH (09:00)
[2022-10-28] MEDS ORDERED: IRBESARTAN 150MG TAB PO SCH ×2 (09:00)
[2022-10-28] MEDS ORDERED: VERAPAMIL 40 MG TAB PO SCH (09:00)
[2022-10-28] MEDS ORDERED: MULTIVITAMINS/MINERALS THERAP 1 TAB PO SCH (09:00)
[2022-10-28 09:12] VITALS: BP 158/109
[2022-10-28 09:39] LABS: LITHIUM LEVEL < 0.10 MMOL/L (1.0-1.20)
[2022-10-28] MEDS ORDERED: MED REC IN PROGRESS XX SCH (10:45)
[2022-10-28] MEDS ORDERED: OLAN1TAB20 PO (13:47)
[2022-10-28] MEDS ORDERED: OLAN15TA13 PO (13:47)
[2022-10-28] MEDS ORDERED: MED REC COMMENT (13:48)
[2022-10-28] MEDS ORDERED: HOME MED LIST COMPLETE! XX SCH (13:50)
[2022-10-28 14:44] VITALS: BP 176/94; TEMP 97.1; O2SAT 98
[2022-10-29] MEDS ORDERED: LEVOTHYROXINE 50MCG TABLET (0.05MG) PO SCH (06:00)
[2022-10-29] MEDS ORDERED: LEVOTHYROXINE 75MCG TABLET (0.075MG) PO SCH (06:00)
== END 2022-10-28 14:46 | disposition home or self-care (01) ==
LOC: M ED 05:24 → EDBD 05:24 → M ED 14:46
DX: F10.10 Alcohol abuse, uncomplicated (principal); F31.9 Bipolar disorder, unspecified; F42.9 Obsessive-compulsive disorder, unspecified; I10 Essential (primary) hypertension; Z79.899 Other long term (current) drug therapy

== ENCOUNTER 2023-04-29 23:55 | Inpatient (IN) | payer MEDICARE, MEDICAID ==
[~2023-04-29] VITALS: Ht 180.3 cm; Wt 80.7 kg
[~2023-04-29 23:55] MED LIST changes: +FLUV100T25 PO; +IRBE150T27 PO; -IRBE150T7 PO; +MECL-209 PO; -MECL1TAB31 PO; +MED REC COMMENT; +OLAN15TA13 PO; +OLAN1TAB20 PO; +PROP20TA72 PO; +VITA100093 PO
[2023-04-30 00:42] LABS: HEMATOCRIT 47.1 % (42.0-52.0); HEMOGLOBIN 16.7 g/dl (13.5-17.5); MEAN CORPUSCULAR HEMOGLOBIN 30.8 pg (27.0-33.0); MEAN CORPUSCULAR HGB CONC 35.5 g/dl (32.0-36.5); MEAN CORPUSCULAR VOLUME 86.9 fl (80.0-96.0); PLATELET COUNT, AUTOMATED 240 10^3/uL (150-450); RED BLOOD COUNT 5.42 10^6/uL (4.30-6.10); WHITE BLOOD COUNT 10.6 10^3/uL (4.0-10.0)
[2023-04-30 01:02] LABS: AMPHETAMINES LEVEL URINE NEGATIVE (NEGATIVE); BARBITURATES URINE NEGATIVE (NEGATIVE); BENZODIAZEPINES URINE NEGATIVE (NEGATIVE); CANNABINOIDS URINE NEGATIVE (NEGATIVE); COCAINE METABOLITE URINE NEGATIVE (NEGATIVE); METHADONE URINE NEGATIVE (NEGATIVE); OPIATES URINE NEGATIVE (NEGATIVE); PHENCYCLIDINE URINE NEGATIVE (NEGATIVE)
[2023-04-30 01:05] LABS: ETHYL ALCOHOL (ETHANOL) 0.289 % (0.000-0.010)
[2023-04-30 01:07] LABS: ALBUMIN 3.7 G/DL (3.2-5.2); ALKALINE PHOSPHATASE 85 U/L (46-116); ALT/SGPT 62 U/L (7.0-40); AST/SGOT 18 U/L (<34); BILIRUBIN,DIRECT 0.2 MG/DL (<0.4); BILIRUBIN,TOTAL 0.5 MG/DL (0.3-1.2); BLOOD UREA NITROGEN 7 MG/DL (9-23); CARBON DIOXIDE LEVEL 22 MMOL/L (20-31); CHLORIDE LEVEL 102 MMOL/L (98-107); CREATININE FOR GFR 0.65 MG/DL (0.70-1.30); GLOMERULAR FILTRATION RATE > 60.0 (>60); GLUCOSE, FASTING 88 MG/DL (60-100); POTASSIUM SERUM 3.7 MMOL/L (3.5-5.1); SALICYLATE LEVEL < 3.0 MG/DL (<30); SODIUM LEVEL 135 MMOL/L (136-145); TOTAL PROTEIN 7.3 G/DL (5.7-8.2)
[2023-04-30 01:09] LABS: THYROID STIMULATING HORMONE 2.579 uIU/ML (0.55-4.78)
[2023-04-30 06:00] LABS: ETHYL ALCOHOL (ETHANOL) 0.192 % (0.000-0.010)
[2023-04-30] MEDS ORDERED: VERA120T83 PO (07:33)
[2023-04-30] MEDS ORDERED: FURO20TA2 PO (07:33)
[2023-04-30] MEDS: LORazepam 2 MG TAB PO PRN ×2 (09:41→13:18)
[2023-04-30] MEDS ORDERED: MED REC IN PROGRESS XX SCH (10:30)
[2023-04-30] MEDS: VERAPAMIL 40 MG TAB PO SCH ×2 (10:35→18:20)
[2023-04-30] MEDS: PROPRANOLOL 20 MG TAB PO SCH ×2 (10:36→18:19)
[2023-04-30] MEDS: IRBESARTAN 150MG TAB PO SCH (10:36)
[2023-04-30] MEDS: LORazepam 2 MG/ML 1ML VIAL IV STA (10:36)
[2023-04-30 10:44] LABS: MAGNESIUM LEVEL 2.1 MG/DL (1.8-2.4)
[2023-04-30] MEDS ORDERED: MAALOX 30 ML SUSP *UDC PO PRN (10:55)
[2023-04-30] MEDS ORDERED: ACETAMINOPHEN TAB 650MG DOSE (2X325MG) PO PRN (10:55)
[2023-04-30] MEDS ORDERED: MOM 30ML SUSPENSION UDC PO PRN (10:55)
[2023-04-30] MEDS: THIAMINE 100 MG TAB PO SCH (11:47)
[2023-04-30] MEDS: OXAZEPAM 10MG CAP PO SCH (13:18)
[2023-04-30] MEDS ORDERED: NICO2LOZ29 PO (13:59)
[2023-04-30] MEDS ORDERED: FLUT05CR TOP (13:59)
[2023-04-30] MEDS ORDERED: HOME MED LIST COMPLETE! XX SCH (14:00)
[2023-04-30 16:16] VITALS: BP 153/94
[2023-04-30 16:18] VITALS: BP 153/94; TEMP 97.3; O2SAT 94
[2023-04-30] MEDS: LORazepam 2 MG/ML 1ML VIAL IV PRN (17:38)
[2023-04-30] MEDS: NICOTINE 14 MG/24 HR TRANSDERMAL TD PRN (18:21)
[2023-04-30 19:28] VITALS: BP 154/93; TEMP 96.7; O2SAT 99
[2023-04-30 19:45] VITALS: BP 154/93
[2023-04-30] MEDS: DOCUSATE SODIUM 100MG CAPSULE PO SCH (21:00)
[2023-04-30] MEDS ORDERED: VERAPAMIL 40 MG TAB PO SCH (21:00)
[2023-04-30] MEDS ORDERED: PROPRANOLOL 20 MG TAB PO SCH (21:00)
[2023-04-30] MEDS: FLUTICASONE PROP 0.05% NASAL SPRAY 16 GM (FLONASE) NARES SCH (21:00)
[2023-04-30] MEDS: TAMSULOSIN 0.4 MG CAP PO SCH (21:36)
[2023-04-30] MEDS: fluvoxaMINE MALEATE 50 MG TAB PO SCH ×2 (21:36)
[2023-04-30 23:48] VITALS: BP 144/87; TEMP 96.4; O2SAT 96
[2023-04-30 23:52] VITALS: BP 144/87
[2023-05-01 03:48] VITALS: BP 148/90; TEMP 96.2; O2SAT 99
[2023-05-01 06:06] LABS: BASO % 0.4 % (0.0-1.0); EOS # 0.1 10^3/uL (0.0-0.5); EOS % 1.6 % (0.0-3.0); HEMATOCRIT 43.5 % (42.0-52.0); HEMOGLOBIN 15.2 g/dl (13.5-17.5); LYMPH # 2.3 10^3/uL (1.5-5.0); LYMPH % 31.2 % (24.0-44.0); MEAN CORPUSCULAR HEMOGLOBIN 30.4 pg (27.0-33.0); MEAN CORPUSCULAR HGB CONC 34.9 g/dl (32.0-36.5); MONO # 0.5 10^3/uL (0.0-0.8); NEUTROPHILS # 4.3 10^3/uL (1.5-8.5); NEUTROPHILS % 59.4 % (36.0-66.0); PLATELET COUNT, AUTOMATED 181 10^3/uL (150-450); WHITE BLOOD COUNT 7.3 10^3/uL (4.0-10.0)
[2023-05-01] MEDS: LEVOTHYROXINE 75MCG TABLET (0.075MG) PO SCH (06:25)
[2023-05-01 06:40] LABS: BLOOD UREA NITROGEN 11 MG/DL (9-23); CALCIUM LEVEL 8.9 MG/DL (8.5-10.1); CARBON DIOXIDE LEVEL 24 MMOL/L (20-31); CHLORIDE LEVEL 106 MMOL/L (98-107); CREATININE FOR GFR 0.72 MG/DL (0.70-1.30); GLOMERULAR FILTRATION RATE > 60.0 (>60); GLUCOSE, FASTING 96 MG/DL (60-100); POTASSIUM SERUM 3.4 MMOL/L (3.5-5.1); SODIUM LEVEL 137 MMOL/L (136-145)
[2023-05-01 07:36] VITALS: BP 138/83; TEMP 97.7; O2SAT 95
[2023-05-01] MEDS: ENOXAPARIN 40MG/0.4ML SYRINGE (J1650 PER 10MG) SC SCH (08:11)
[2023-05-01] MEDS: IRBESARTAN 150MG TAB PO SCH (08:12)
[2023-05-01] MEDS: OLANZapine 5 MG TAB PO SCH (08:12)
[2023-05-01] MEDS: MULTIVITAMINS/MINERALS THERAP 1 TAB PO SCH (08:13)
[2023-05-01] MEDS: FOLIC ACID 1MG TAB PO SCH (08:13)
[2023-05-01] MEDS: POTASSIUM CHLORIDE 10MEQ SR TABLET PO ONE (08:13)
[2023-05-01 08:17] VITALS: BP 138/83
[2023-05-01] MEDS ORDERED: IRBESARTAN 150MG TAB PO SCH (09:00)
[2023-05-01 11:27] VITALS: BP 120/75; TEMP 96.7; O2SAT 95
[2023-05-01 15:58] VITALS: BP 138/86; TEMP 97.2; O2SAT 97
[2023-05-01] MEDS: LORazepam 2 MG TAB PO PRN (16:57)
[2023-05-01] MEDS: CEPACOL LOZENGE MT PRN (18:26)
[2023-05-01 20:00] VITALS: BP 137/86; TEMP 97.4; O2SAT 96
[2023-05-02 04:10] VITALS: BP 142/80; TEMP 97.2; O2SAT 98
[2023-05-02 06:09] LABS: BASO % 0.6 % (0.0-1.0); EOS # 0.1 10^3/uL (0.0-0.5); EOS % 1.6 % (0.0-3.0); HEMATOCRIT 41.1 % (42.0-52.0); HEMOGLOBIN 14.3 g/dl (13.5-17.5); LYMPH # 1.7 10^3/uL (1.5-5.0); MEAN CORPUSCULAR HEMOGLOBIN 30.9 pg (27.0-33.0); MEAN CORPUSCULAR HGB CONC 34.8 g/dl (32.0-36.5); MEAN CORPUSCULAR VOLUME 88.8 fl (80.0-96.0); MONO # 0.5 10^3/uL (0.0-0.8); MONO % 6.4 % (2.0-8.0); NEUTROPHILS # 4.7 10^3/uL (1.5-8.5); PLATELET COUNT, AUTOMATED 180 10^3/uL (150-450); RED BLOOD COUNT 4.63 10^6/uL (4.30-6.10)
[2023-05-02 06:37] LABS: BLOOD UREA NITROGEN 11 MG/DL (9-23); CALCIUM LEVEL 8.4 MG/DL (8.5-10.1); CARBON DIOXIDE LEVEL 23 MMOL/L (20-31); CHLORIDE LEVEL 110 MMOL/L (98-107); CREATININE FOR GFR 0.67 MG/DL (0.70-1.30); GLOMERULAR FILTRATION RATE > 60.0 (>60); GLUCOSE, FASTING 85 MG/DL (60-100); MAGNESIUM LEVEL 1.9 MG/DL (1.8-2.4); POTASSIUM SERUM 3.8 MMOL/L (3.5-5.1); SODIUM LEVEL 140 MMOL/L (136-145)
[2023-05-02 07:36] VITALS: BP 144/70; TEMP 97.6; O2SAT 96
[2023-05-02] MEDS: fluvoxaMINE MALEATE 50 MG TAB PO SCH (09:49)
[2023-05-02 09:50] VITALS: BP 144/70
[2023-05-02 09:53] VITALS: BP 144/83
[2023-05-02 12:02] VITALS: BP 142/89; TEMP 97.8; O2SAT 98
[2023-05-02 14:15] VITALS: BP 138/87
== END 2023-05-02 15:03 | DRG 897 ==
LOC: M ED 23:55 → M ED INP 04-30 10:52 → M PCU 04-30 16:08
PROVIDERS: ADMIT Internal Medicine; ATTEND Internal Medicine
DX: F10.239 Alcohol dependence with withdrawal, unspecified (principal); R45.851 Suicidal ideations; F31.81 Bipolar II disorder; I10 Essential (primary) hypertension; E03.9 Hypothyroidism, unspecified; N40.0 Benign prostatic hyperplasia without lower urinary tract symptoms; F41.9 Anxiety disorder, unspecified; F60.3 Borderline personality disorder; L21.9 Seborrheic dermatitis, unspecified; F17.200 Nicotine dependence, unspecified, uncomplicated; R45.850 Homicidal ideations; F10.229 Alcohol dependence with intoxication, unspecified; Z79.890 Hormone replacement therapy; Z79.899 Other long term (current) drug therapy; F42.9 Obsessive-compulsive disorder, unspecified

== ENCOUNTER 2023-05-02 12:32 | Inpatient (IN) | payer MEDICARE, MEDICAID ==
[~2023-05-02] VITALS: Ht 172.7 cm; Wt 80.6 kg
[~2023-05-02 12:32] MED LIST changes: +FLUT05CR TOP; +FURO20TA2 PO; +NICO2LOZ29 PO
[2023-05-02 13:15] VITALS: BP 144/86
[2023-05-02] MEDS ORDERED: ACETAMINOPHEN TAB 650MG DOSE (2X325MG) PO PRN (13:15)
[2023-05-02] MEDS ORDERED: MAALOX 30 ML SUSP *UDC PO PRN (13:15)
[2023-05-02] MEDS ORDERED: IBUPROFEN 400MG TAB PO PRN (13:15)
[2023-05-02] MEDS ORDERED: MOM 30ML SUSPENSION UDC PO PRN (13:15)
[2023-05-02] MEDS ORDERED: LORazepam 2 MG TAB PO PRN (13:15)
[2023-05-02 15:15] VITALS: BP 144/86
[2023-05-02 15:48] VITALS: BP 144/86; TEMP 98.3; O2SAT 97
[2023-05-02 18:29] VITALS: BP 157/95; TEMP 97; O2SAT 98
[2023-05-02 19:03] VITALS: BP 146/98
[2023-05-02 20:47] VITALS: BP 148/98
[2023-05-02] MEDS: THIAMINE 100 MG TAB PO SCH (20:50)
[2023-05-02] MEDS: PROPRANOLOL 20 MG TAB PO SCH (20:50)
[2023-05-02] MEDS: VERAPAMIL 40 MG TAB PO SCH (20:50)
[2023-05-02] MEDS: TAMSULOSIN 0.4 MG CAP PO SCH (20:50)
[2023-05-02] MEDS: OXAZEPAM 10MG CAP PO SCH (21:26)
[2023-05-03] VITALS (7 sets, daily range): BP systolic 141–158; BP diastolic 88–96; TEMP 96.5–97.1; O2SAT 98–100
[2023-05-03] MEDS: LEVOTHYROXINE 75MCG TABLET (0.075MG) PO SCH (05:17)
[2023-05-03] MEDS: IRBESARTAN 150MG TAB PO SCH (08:47)
[2023-05-03] MEDS: FUROSEMIDE 20 MG TAB PO SCH (08:48)
[2023-05-03] MEDS: MULTIVITAMINS/MINERALS THERAP 1 TAB PO SCH (08:48)
[2023-05-03] MEDS: FOLIC ACID 1MG TAB PO SCH (08:48)
[2023-05-03] MEDS: NICOTINE 21MG/24HR 1 EA TRANSDERMAL TD SCH (10:28)
[2023-05-03] MEDS: OXAZEPAM 10MG CAP PO SCH (20:16)
[2023-05-03] MEDS: fluvoxaMINE MALEATE 50 MG TAB PO SCH (20:16)
[2023-05-03] MEDS: traZODone 50 MG TAB PO PRN (20:17)
[2023-05-03] MEDS: diphenhydrAMINE 25MG CAP PO PRN (20:18)
[2023-05-03] MEDS: OLANZapine 5 MG TAB PO SCH (20:18)
[2023-05-03] MEDS ORDERED: OLANZapine 5 MG TAB PO SCH (21:00)
[2023-05-04 06:43] VITALS: BP 133/83; TEMP 98.3; O2SAT 97
[2023-05-04 06:57] VITALS: BP 133/83
[2023-05-04 08:17] VITALS: BP 135/80
[2023-05-04 09:26] LABS: CHOLESTEROL RISK RATIO 2.61 (<5); HDL CHOLESTEROL 63.5 MG/DL (>40); LDL CHOLESTEROL 56.1 MG/DL (<100); NON-HDL-C 102.5 MG/DL
[2023-05-04] MEDS: risperiDONE 1 MG TAB PO SCH (10:53)
[2023-05-04 15:00] VITALS: BP 140/91
[2023-05-04 18:19] VITALS: BP 124/92; TEMP 98.1
[2023-05-04] MEDS: DIVALPROEX 500MG *ER* TAB PO SCH (20:42)
[2023-05-04 22:54] VITALS: BP 141/81
[2023-05-05 06:39] VITALS: BP 135/74; TEMP 97.6; O2SAT 99
[2023-05-05] MEDS ORDERED: LOPERAMIDE 2 MG CAPLET PO PRN (14:15)
[2023-05-05] MEDS: ACAMPROSATE CALCIUM 333MG TABLET (CAMPRAL) PO SCH (17:05)
[2023-05-05 17:56] VITALS: BP 156/95; TEMP 97.9; O2SAT 97
[2023-05-05] MEDS: DIVALPROEX 250MG *ER* TAB PO SCH (20:40)
[2023-05-05] MEDS: fluvoxaMINE MALEATE 50 MG TAB PO SCH (20:41)
[2023-05-05] MEDS: DIVALPROEX 500MG *ER* TAB PO SCH (20:41)
[2023-05-06 06:18] VITALS: BP 129/71; TEMP 98.5; O2SAT 97
[2023-05-06] MEDS: NALTREXONE 50 MG TAB PO SCH (09:18)
[2023-05-06] MEDS: OXAZEPAM 10MG CAP PO SCH (09:19)
[2023-05-06] MEDS: NICOTINE POLACRILEX 2 MG GUM PO PRN (15:10)
[2023-05-06 16:21] VITALS: BP 131/79; TEMP 97.9; O2SAT 100
[2023-05-06] MEDS: busPIRone 10 MG TAB PO SCH (20:27)
[2023-05-07 06:41] VITALS: BP 107/56; TEMP 98.4; O2SAT 99
[2023-05-07 16:14] VITALS: BP 116/65; TEMP 97.9; O2SAT 98
[2023-05-08 06:26] VITALS: BP 100/58; TEMP 97.6; O2SAT 96
[2023-05-08 16:03] VITALS: BP 117/70; TEMP 98.2; O2SAT 97
[2023-05-09 06:02] VITALS: BP 108/58; TEMP 97.1; O2SAT 96
[2023-05-09 09:06] VITALS: BP 158/92
[2023-05-09] MEDS ORDERED: DEPA500T2 PO (10:46)
[2023-05-09] MEDS ORDERED: ACAM0.05 PO (10:46)
[2023-05-09] MEDS ORDERED: DEPA250T2 PO (10:46)
[2023-05-09] MEDS ORDERED: FLUV100T25 PO (10:46)
== END 2023-05-09 13:15 | disposition home or self-care (01) | DRG 882 ==
LOC: M PSY 15:07
PROVIDERS: ADMIT Student in an Organized Health Care Education/Training Program; ATTEND Student in an Organized Health Care Education/Training Program
DX: F42.9 Obsessive-compulsive disorder, unspecified (principal); F10.239 Alcohol dependence with withdrawal, unspecified; F31.81 Bipolar II disorder; I10 Essential (primary) hypertension; L21.9 Seborrheic dermatitis, unspecified; F17.200 Nicotine dependence, unspecified, uncomplicated; Z79.890 Hormone replacement therapy; Z79.899 Other long term (current) drug therapy; E03.9 Hypothyroidism, unspecified; N40.0 Benign prostatic hyperplasia without lower urinary tract symptoms

== ENCOUNTER → 2023-07-19 | Outpatient (REF) | payer MEDICARE, MEDICAID ==
[~2023-07-19] MED LIST changes: +ACAM0.05 PO; +DEPA250T2 PO
[2023-07-19 17:54] LABS: BASO % 0.5 % (0.0-1.0); EOS # 0.2 10^3/uL (0.0-0.5); EOS % 2.7 % (0.0-3.0); HEMATOCRIT 46.3 % (42.0-52.0); HEMOGLOBIN 15.6 g/dl (13.5-17.5); LYMPH # 2.9 10^3/uL (1.5-5.0); LYMPH % 36.5 % (24.0-44.0); MEAN CORPUSCULAR HEMOGLOBIN 32.4 pg (27.0-33.0); MEAN CORPUSCULAR HGB CONC 33.7 g/dl (32.0-36.5); MEAN CORPUSCULAR VOLUME 96.3 fl (80.0-96.0); MONO # 0.5 10^3/uL (0.0-0.8); MONO % 5.8 % (2.0-8.0); NEUTROPHILS # 4.2 10^3/uL (1.5-8.5); NEUTROPHILS % 53.5 % (36.0-66.0); PLATELET COUNT, AUTOMATED 239 10^3/uL (150-450); RED BLOOD COUNT 4.81 10^6/uL (4.30-6.10); WHITE BLOOD COUNT 7.9 10^3/uL (4.0-10.0)
[2023-07-19 18:15] LABS: PSA SCREENING 0.45 NG/ML (< 4.00)
[2023-07-19 18:17] LABS: ALBUMIN 3.2 G/DL (3.2-5.2); ALKALINE PHOSPHATASE 65 U/L (46-116); ALT/SGPT 44 U/L (7.0-40); AST/SGOT 19 U/L (<34); BILIRUBIN,TOTAL 0.4 MG/DL (0.3-1.2); BLOOD UREA NITROGEN 7 MG/DL (9-23); CALCIUM LEVEL 8.8 MG/DL (8.5-10.1); CARBON DIOXIDE LEVEL 28 MMOL/L (20-31); CHLORIDE LEVEL 109 MMOL/L (98-107); CHOLESTEROL LEVEL 196 MG/DL (<200); CHOLESTEROL RISK RATIO 2.94 (<5); CREATININE FOR GFR 0.84 MG/DL (0.70-1.30); GLOMERULAR FILTRATION RATE > 60.0 (>60); GLUCOSE, FASTING 83 MG/DL (60-100); HDL CHOLESTEROL 66.6 MG/DL (>40); LDL CHOLESTEROL 88.2 MG/DL (<100); NON-HDL-C 129.4 MG/DL; POTASSIUM SERUM 3.9 MMOL/L (3.5-5.1); SODIUM LEVEL 145 MMOL/L (136-145); TOTAL PROTEIN 6.6 G/DL (5.7-8.2); TRIGLYCERIDES LEVEL 206 MG/DL (<150)
[2023-07-19 18:19] LABS: FREE T4 1.14 NG/DL (0.89-1.76); THYROID STIMULATING HORMONE 2.209 uIU/ML (0.55-4.78)
== END ==
LOC: M SFHCLERA 09:08
PROVIDERS: ATTEND Family Medicine
DX: E03.9 Hypothyroidism, unspecified (principal); N40.1 Benign prostatic hyperplasia with lower urinary tract symptoms; R97.20 Elevated prostate specific antigen [PSA]
CPT/HCPCS: 80053; 80061; 84439; 84443; 85025; G0103

== ENCOUNTER 2023-09-30 10:49 | Inpatient (IN) | payer MEDICARE, MEDICAID ==
[~2023-09-30] VITALS: Ht 175.3 cm; Wt 71.7 kg
[2023-09-30] VITALS (37 sets, daily range): BP systolic 115–181; BP diastolic 61–92; TEMP 97.4–98.2; O2SAT 74–100
[~2023-09-30 10:49] MED LIST changes: -SUMA6INJ25 SC; +SUMA6PEN3 SC
[2023-09-30] MEDS: ALBUTEROL SULFATE 2.5MG/0.5ML INH NEB SOLN INH ONE (11:18)
[2023-09-30] MEDS: IPRATROPIUM 0.5MG/ALBUTEROL 2.5MG INH SOL UD 3ML (DUONEB) NEB ONE ×2 (11:18→11:19)
[2023-09-30 11:23] LABS: ABG BASE EXCESS -18.3 (-2.0-2.0); ABG HCO3 8.6 MMOL/L (22.0-26.0); ABG O2 SATURATION 96.9 % (95.0-99.0); ABG PARTIAL PRESSURE CO2 24.2 mmHg (35.0-45.0); ABG STANDARD HCO3 10.2 MMOL/L. (22.0-26.0); ABG TOTAL CO2 9.4 MMOL/L (22.0-29.0)
[2023-09-30 11:28] LABS: ABG pH (ARTERIAL) 7.169 UNITS (7.350-7.450)
[2023-09-30] MEDS: methylPREDNISolone 125MG 2ML VIAL IV ONE (11:30)
[2023-09-30] MEDS: NS 1,000 ML IV ONE (11:30)
[2023-09-30 11:44] LABS: BASO % 0.2 % (0.0-1.0); EOS % 0.1 % (0.0-3.0); LYMPH # 0.2 10^3/uL (1.5-5.0); LYMPH % 0.7 % (24.0-44.0); MEAN CORPUSCULAR HEMOGLOBIN 32.7 pg (27.0-33.0); MEAN CORPUSCULAR VOLUME 88.8 fl (80.0-96.0); MONO # 0.6 10^3/uL (0.0-0.8); MONO % 2.5 % (2.0-8.0); NEUTROPHILS # 21.4 10^3/uL (1.5-8.5); NEUTROPHILS % 93.4 % (36.0-66.0); PLATELET COUNT, AUTOMATED 255 10^3/uL (150-450); RED BLOOD COUNT 2.14 10^6/uL (4.30-6.10); WHITE BLOOD COUNT 22.9 10^3/uL (4.0-10.0)
[2023-09-30 11:46] LABS: MEAN CORPUSCULAR HGB CONC 36.8 g/dl (32.0-36.5)
[2023-09-30] MEDS: ALBUTEROL SULFATE 2.5MG/0.5ML INH NEB SOLN NEB ONE (11:46)
[2023-09-30 11:58] LABS: CK-MB VALUE MASS 112.3 NG/ML (<3.6)
[2023-09-30 11:59] LABS: ETHYL ALCOHOL (ETHANOL) < 0.003 % (0.000-0.010)
[2023-09-30 12:01] LABS: SALICYLATE LEVEL < 3.0 MG/DL (<30)
[2023-09-30 12:02] LABS: FREE T4 0.23 NG/DL (0.89-1.76)
[2023-09-30 12:03] LABS: THYROID STIMULATING HORMONE 1.536 uIU/ML (0.55-4.78)
[2023-09-30] MEDS: MULTIVITAMIN -ADULT INJECTION 10 ML, THIAMINE INJection 100 MG, FOLIC ACID 1 MG in NS 1... IV ONE (12:04)
[2023-09-30] MEDS: LIDOCAINE 2% 5ML JELLY UROJET TOP ONE (12:20)
[2023-09-30 12:22] LABS: AMPHETAMINES LEVEL URINE NEGATIVE (NEGATIVE); BARBITURATES URINE NEGATIVE (NEGATIVE); BENZODIAZEPINES URINE NEGATIVE (NEGATIVE); CANNABINOIDS URINE NEGATIVE (NEGATIVE); COCAINE METABOLITE URINE NEGATIVE (NEGATIVE); METHADONE URINE NEGATIVE (NEGATIVE); OPIATES URINE NEGATIVE (NEGATIVE); PHENCYCLIDINE URINE NEGATIVE (NEGATIVE)
[2023-09-30 12:24] LABS: ALBUMIN 2.9 G/DL (3.2-5.2); ALKALINE PHOSPHATASE 131 U/L (46-116); ALT/SGPT 35 U/L (7.0-40); AST/SGOT 19 U/L (<34); BILIRUBIN,DIRECT 0.1 MG/DL (<0.4); BILIRUBIN,TOTAL 0.2 MG/DL (0.3-1.2); BLOOD UREA NITROGEN 295 MG/DL (9-23); CALCIUM LEVEL 7.1 MG/DL (8.5-10.1); CARBON DIOXIDE LEVEL < 10.0 MMOL/L (20-31); CHLORIDE LEVEL 93 MMOL/L (98-107); CPK CREATINE PHOSPHOKINASE 597 U/L (46-171); CREATININE FOR GFR 18.53 MG/DL (0.70-1.30); GLOMERULAR FILTRATION RATE 2.9 (>60); GLUCOSE, FASTING 99 MG/DL (60-100); MAGNESIUM LEVEL 2.6 MG/DL (1.8-2.4); MB/CK RELATIVE INDEX 18.81 (< OR =4); POTASSIUM SERUM 5.1 MMOL/L (3.5-5.1); SODIUM LEVEL 134 MMOL/L (136-145); TOTAL PROTEIN 5.9 G/DL (5.7-8.2)
[2023-09-30 12:48] LABS: INR 1.27; PARTIAL THROMBOPLASTIN TIME 29.9 SECONDS (24.8-34.2); PROTHROMBIN TIME 15.5 SECONDS (12.5-14.5)
[2023-09-30 12:49] LABS: CK-MB VALUE MASS 103.8 NG/ML (<3.6)
[2023-09-30 12:50] LABS: MB/CK RELATIVE INDEX 19.32 (< OR =4)
[2023-09-30] MEDS: NS 500 ML IV ONE (13:23)
[2023-09-30] MEDS: SODIUM BICARBONATE 150 MEQ in D5W 1,000 ML IV SCH (14:31)
[2023-09-30] MEDS ORDERED: ZOLO100T PO (15:17)
[2023-09-30] MEDS ORDERED: HOME MED LIST COMPLETE! XX SCH (15:20)
[2023-09-30 16:35] LABS: HEMOGLOBIN 6.2 g/dl (13.5-17.5)
[2023-09-30 16:56] LABS: BLOOD UREA NITROGEN 277 MG/DL (9-23); CALCIUM LEVEL 6.6 MG/DL (8.5-10.1); CARBON DIOXIDE LEVEL < 10.0 MMOL/L (20-31); CHLORIDE LEVEL 99 MMOL/L (98-107); CREATININE FOR GFR 17.17 MG/DL (0.70-1.30); GLOMERULAR FILTRATION RATE 3.2 (>60); GLUCOSE, FASTING 151 MG/DL (60-100); POTASSIUM SERUM 4.3 MMOL/L (3.5-5.1); SODIUM LEVEL 138 MMOL/L (136-145)
[2023-09-30] MEDS: PANTOPRAZOLE SODIUM 40 MG in D5W 50 ML IV SCH (17:43)
[2023-09-30 18:07] LABS: ABG BASE EXCESS -17.4 (-2.0-2.0); ABG O2 SATURATION 98.5 % (95.0-99.0); ABG PARTIAL PRESSURE O2 129.9 mmHg (75.0-100.0); ABG STANDARD HCO3 10.8 MMOL/L. (22.0-26.0); ABG TOTAL CO2 8.5 MMOL/L (22.0-29.0); ABG pH (ARTERIAL) 7.255 UNITS (7.350-7.450)
[2023-09-30 18:08] LABS: ABG PARTIAL PRESSURE CO2 18.4 mmHg (35.0-45.0)
[2023-09-30] MEDS: ETOMIDATE INJ 20MG/10ML VIAL IV STA (18:16)
[2023-09-30] MEDS: SUCCINYLCHOLINE INJ 200MG/10ML VIAL IV STA (18:17)
[2023-09-30] MEDS ORDERED: FENTANYL DRIP LOCK BOX KEY 1 EACH XX PRN (18:25)
[2023-09-30] MEDS ORDERED: MIDAZOLAM INJ 2MG/2ML VIAL As Ordered ONE (18:29)
[2023-09-30] MEDS: MIDAZOLAM INJ 2MG/2ML VIAL IV PRN (18:30)
[2023-09-30] MEDS ORDERED: PROPOFOL 1,000 MG/100 ML VIAL As Ordered ONE (18:52)
[2023-09-30] MEDS: MIDAZOLAM INJ 2MG/2ML VIAL IV STA (18:56)
[2023-09-30] MEDS: fentaNYL CITRATE/NaCl 1,000 MCG in IV 1 EA IV SCH (19:10)
[2023-09-30] MEDS: MIDAZOLAM 100MG/100ML-0.9%NACL 100 MG in IV 1 EA IV SCH (19:11)
[2023-09-30] MEDS: propofoL 1,000 MG in IV 1 EA IV SCH (19:12)
[2023-09-30 19:35] LABS: ABG BASE EXCESS -15.1 (-2.0-2.0); ABG HCO3 10.2 MMOL/L (22.0-26.0); ABG O2 SATURATION 99.4 % (95.0-99.0); ABG PARTIAL PRESSURE CO2 22.7 mmHg (35.0-45.0); ABG PARTIAL PRESSURE O2 235.2 mmHg (75.0-100.0); ABG STANDARD HCO3 12.7 MMOL/L. (22.0-26.0); ABG TOTAL CO2 10.9 MMOL/L (22.0-29.0); ABG pH (ARTERIAL) 7.272 UNITS (7.350-7.450)
[2023-09-30] MEDS: HEPARIN SOD (PORCINE) 5000UNITS/ML 1ML VIAL/SYRINGE SC SCH (21:29)
[2023-09-30] MEDS: PANTOPRAZOLE 40MG VIAL IV SCH (21:29)
[2023-09-30 22:01] LABS: HEMATOCRIT 21.2 % (42.0-52.0); HEMOGLOBIN 7.7 g/dl (13.5-17.5)
[2023-09-30 22:39] LABS: CALCIUM LEVEL 6.3 MG/DL (8.5-10.1); CREATININE FOR GFR 16.08 MG/DL (0.70-1.30); GLOMERULAR FILTRATION RATE 3.5 (>60); POTASSIUM SERUM 3.6 MMOL/L (3.5-5.1)
[2023-10-01] VITALS (67 sets, daily range): BP systolic 98–159; BP diastolic 50–86; TEMP 96.6–99.5; O2SAT 88–99
[2023-10-01 04:48] LABS: HEMOGLOBIN 7.7 g/dl (13.5-17.5); MEAN CORPUSCULAR HEMOGLOBIN 31.6 pg (27.0-33.0); MEAN CORPUSCULAR VOLUME 84.8 fl (80.0-96.0); PLATELET COUNT, AUTOMATED 198 10^3/uL (150-450); RED BLOOD COUNT 2.44 10^6/uL (4.30-6.10); WHITE BLOOD COUNT 14.4 10^3/uL (4.0-10.0)
[2023-10-01 04:52] LABS: HEMATOCRIT 20.7 % (42.0-52.0)
[2023-10-01 04:53] LABS: MEAN CORPUSCULAR HGB CONC 37.2 g/dl (32.0-36.5)
[2023-10-01 05:06] LABS: ALBUMIN 2.6 G/DL (3.2-5.2); BILIRUBIN,TOTAL 0.3 MG/DL (0.3-1.2); CALCIUM LEVEL 6.6 MG/DL (8.5-10.1); CREATININE FOR GFR 15.14 MG/DL (0.70-1.30); GLOMERULAR FILTRATION RATE 3.7 (>60); MAGNESIUM LEVEL 2.3 MG/DL (1.8-2.4); POTASSIUM SERUM 4.3 MMOL/L (3.5-5.1); TOTAL PROTEIN 5.2 G/DL (5.7-8.2)
[2023-10-01] MEDS: INSULIN LISPRO (NovoLOG) PER UNIT SC SCH (06:00)
[2023-10-01 06:14] LABS: ABG BASE EXCESS -6.7 (-2.0-2.0); ABG PARTIAL PRESSURE CO2 22.6 mmHg (35.0-45.0); ABG PARTIAL PRESSURE O2 101.4 mmHg (75.0-100.0); ABG STANDARD HCO3 18.9 MMOL/L. (22.0-26.0); ABG TOTAL CO2 16.7 MMOL/L (22.0-29.0); ABG pH (ARTERIAL) 7.468 UNITS (7.350-7.450)
[2023-10-01] MEDS ORDERED: GLUCOSE 4 GM CHEW PO PRN (08:10)
[2023-10-01] MEDS ORDERED: GLUCAGON INJ 1MG VIAL SC PRN (08:10)
[2023-10-01] MEDS ORDERED: DEXTROSE 50% 50ML SYRINGE IV PRN (08:10)
[2023-10-01] MEDS ORDERED: MULTIVITAMIN -ADULT INJECTION 10 ML in NS 500 ML IV SCH (09:00)
[2023-10-01] MEDS: THIAMINE 200MG 2ML VIAL IM SCH (09:11)
[2023-10-01 10:04] LABS: HEMATOCRIT 21.2 % (42.0-52.0)
[2023-10-01] MEDS ORDERED: FOLIC ACID 1 MG in NS 50 ML IV SCH (11:00)
[2023-10-01] MEDS: MULTIVITAMIN -ADULT INJECTION 10 ML, THIAMINE INJection 100 MG, FOLIC ACID 1 MG in NS 1... IV SCH (11:34)
[2023-10-01 12:14] LABS: ABG BASE EXCESS -2.1 (-2.0-2.0); ABG HCO3 20.4 MMOL/L (22.0-26.0); ABG O2 SATURATION 93.6 % (95.0-99.0); ABG PARTIAL PRESSURE CO2 27.2 mmHg (35.0-45.0); ABG PARTIAL PRESSURE O2 70.5 mmHg (75.0-100.0); ABG STANDARD HCO3 22.7 MMOL/L. (22.0-26.0); ABG TOTAL CO2 21.2 MMOL/L (22.0-29.0); ABG pH (ARTERIAL) 7.492 UNITS (7.350-7.450)
[2023-10-01 12:50] LABS: CALCIUM LEVEL 6.8 MG/DL (8.5-10.1); CREATININE FOR GFR 14.06 MG/DL (0.70-1.30); POTASSIUM SERUM 2.5 MMOL/L (3.5-5.1)
[2023-10-01] MEDS: KCL 10MEQ/100ML SWI (KRUN) 10 MEQ in IV 1 EA IV SCH (14:19)
[2023-10-01] MEDS: SODIUM BICARBONATE 75 MEQ in KCL 20MEQ IN 0.45NS 1000ML 1,000 ML IV SCH (19:26)
[2023-10-01 21:18] LABS: CALCIUM LEVEL 6.2 MG/DL (8.5-10.1); CREATININE FOR GFR 13.28 MG/DL (0.70-1.30); GLOMERULAR FILTRATION RATE 4.3 (>60)
[2023-10-02] VITALS (57 sets, daily range): BP systolic 111–148; BP diastolic 59–82; TEMP 98.6–100; O2SAT 92–100
[2023-10-02] MEDS: KCL 10MEQ/100ML SWI (KRUN) 10 MEQ in IV 1 EA IV SCH (01:26)
[2023-10-02 05:24] LABS: HEMOGLOBIN 7.1 g/dl (13.5-17.5); MEAN CORPUSCULAR HEMOGLOBIN 31.3 pg (27.0-33.0); MEAN CORPUSCULAR VOLUME 84.6 fl (80.0-96.0); PLATELET COUNT, AUTOMATED 143 10^3/uL (150-450); RED BLOOD COUNT 2.27 10^6/uL (4.30-6.10); WHITE BLOOD COUNT 19.1 10^3/uL (4.0-10.0)
[2023-10-02 05:25] LABS: HEMATOCRIT 19.2 % (42.0-52.0)
[2023-10-02 05:51] LABS: ABG BASE EXCESS 1.5 (-2.0-2.0); ABG HCO3 24.5 MMOL/L (22.0-26.0); ABG O2 SATURATION 97.6 % (95.0-99.0); ABG PARTIAL PRESSURE CO2 31.6 mmHg (35.0-45.0); ABG PARTIAL PRESSURE O2 121.3 mmHg (75.0-100.0); ABG STANDARD HCO3 25.8 MMOL/L. (22.0-26.0); ABG TOTAL CO2 25.5 MMOL/L (22.0-29.0); ABG pH (ARTERIAL) 7.507 UNITS (7.350-7.450)
[2023-10-02 06:34] LABS: ALBUMIN 2.3 G/DL (3.2-5.2); BILIRUBIN,TOTAL 0.3 MG/DL (0.3-1.2); CREATININE FOR GFR 12.33 MG/DL (0.70-1.30); GLOMERULAR FILTRATION RATE 4.7 (>60); MAGNESIUM LEVEL 1.8 MG/DL (1.8-2.4); POTASSIUM SERUM 3.1 MMOL/L (3.5-5.1); TOTAL PROTEIN 4.6 G/DL (5.7-8.2)
[2023-10-02] MEDS ORDERED: POTASSIUM CHLORIDE 10MEQ SR TABLET PO ONE (08:00)
[2023-10-02] MEDS: LR 1,000 ML IV SCH (08:22)
[2023-10-02] MEDS: KCL 10MEQ/100ML SWI (KRUN) IV SCH (08:51)
[2023-10-02 16:50] LABS: CREATININE FOR GFR 11.25 MG/DL (0.70-1.30); GLOMERULAR FILTRATION RATE 5.2 (>60); POTASSIUM SERUM 3.5 MMOL/L (3.5-5.1)
[2023-10-03] VITALS (88 sets, daily range): BP systolic 101–165; BP diastolic 57–87; TEMP 98.4–100.6; O2SAT 89–100
[2023-10-03 05:30] LABS: HEMOGLOBIN 7.1 g/dl (13.5-17.5); MEAN CORPUSCULAR HEMOGLOBIN 31.4 pg (27.0-33.0); MEAN CORPUSCULAR HGB CONC 34.8 g/dl (32.0-36.5); MEAN CORPUSCULAR VOLUME 90.3 fl (80.0-96.0); PLATELET COUNT, AUTOMATED 110 10^3/uL (150-450); RED BLOOD COUNT 2.26 10^6/uL (4.30-6.10); WHITE BLOOD COUNT 22.4 10^3/uL (4.0-10.0)
[2023-10-03 05:49] LABS: HEMATOCRIT 20.4 % (42.0-52.0)
[2023-10-03 06:00] LABS: ABG HCO3 21.1 MMOL/L (22.0-26.0); ABG O2 SATURATION 94.3 % (95.0-99.0); ABG PARTIAL PRESSURE CO2 33.3 mmHg (35.0-45.0); ABG PARTIAL PRESSURE O2 78.9 mmHg (75.0-100.0); ABG STANDARD HCO3 21.9 MMOL/L. (22.0-26.0); ABG TOTAL CO2 22.1 MMOL/L (22.0-29.0); ABG pH (ARTERIAL) 7.419 UNITS (7.350-7.450)
[2023-10-03 06:07] LABS: ALBUMIN 2.2 G/DL (3.2-5.2); ALKALINE PHOSPHATASE 97 U/L (46-116); ALT/SGPT 15 U/L (7.0-40); AST/SGOT 12 U/L (<34); BILIRUBIN,TOTAL 0.2 MG/DL (0.3-1.2); BLOOD UREA NITROGEN 207 MG/DL (9-23); CALCIUM LEVEL 6.4 MG/DL (8.5-10.1); CARBON DIOXIDE LEVEL 23 MMOL/L (20-31); CHLORIDE LEVEL 106 MMOL/L (98-107); CREATININE FOR GFR 10.38 MG/DL (0.70-1.30); GLOMERULAR FILTRATION RATE 5.7 (>60); GLUCOSE, FASTING 95 MG/DL (60-100); MAGNESIUM LEVEL 1.6 MG/DL (1.8-2.4); POTASSIUM SERUM 3.9 MMOL/L (3.5-5.1); SODIUM LEVEL 146 MMOL/L (136-145); TOTAL PROTEIN 4.8 G/DL (5.7-8.2)
[2023-10-03] MEDS: MAG SULF 1GM/100ML (MAG RUN) 1 GM in IV 1 EA IV ONE (08:54)
[2023-10-03] MEDS ORDERED: SODIUM BICARBONATE 100 MEQ, POTASSIUM CHLORIDE INJ 20 MEQ in D5W 1,000 ML IV SCH (10:00)
[2023-10-03] MEDS: SODIUM BICARBONATE 100 MEQ in KCL 20MEQ IN D5W 1000ML 1,000 ML IV SCH (10:16)
[2023-10-03] MEDS ORDERED: CISATRACURIUM 10MG/ML 20 ML VIAL As Ordered ONE (13:17)
[2023-10-03] MEDS: MIDAZOLAM INJ 2MG/2ML VIAL IV ONE (13:38)
[2023-10-03] MEDS: CISATRACURIUM 10MG/ML 20 ML VIAL IV ONE (14:31)
[2023-10-03] MEDS: HEPARIN 1,000UNITS/ML 10ML VIAL (FOR RADIOLOGY & DIALYSIS ONLY) IV STA (14:32)
[2023-10-03] MEDS ORDERED: SODIUM CHLORIDE 0.9% 1000ML IV PRN (15:45)
[2023-10-03] MEDS ORDERED: HEPARIN 1,000UNITS/ML 10ML VIAL (FOR RADIOLOGY & DIALYSIS ONLY) IV PRN (15:45)
[2023-10-03 16:20] LABS: HEPATITIS B SURFACE ANTIBODY NEGATIVE (POSITIVE)
[2023-10-03 16:25] LABS: PROCALCITONIN 0.94 ng/ml
[2023-10-03 16:33] LABS: HEPATITIS B SURFACE ANTIGEN NEGATIVE (NEGATIVE)
[2023-10-03 16:53] LABS: HEPATITIS C VIRUS ABY INDEX < 0.02 INDEX (<0.8)
[2023-10-03] MEDS ORDERED: VANCOMYCIN HCL 1,500 MG in IV FLUID PLACE HOLDER 1 EA IV ONE (17:40)
[2023-10-03 17:43] LABS: HEPATITIS B CORE ANTIBODY IGM INCONCLUSIVE (NEGATIVE)
[2023-10-03] MEDS: HEPARIN 1,000UNITS/ML 10ML VIAL (FOR RADIOLOGY & DIALYSIS ONLY) XX SCH (17:58)
[2023-10-03] MEDS ORDERED: VANCOMYCIN HCL 750 MG, VIAL MATE ADAPTER 1 EACH in D5W 250 ML IV ONE ×4 (18:00→21:00)
[2023-10-03] MEDS ORDERED: CEFEPIME HCL 1 GM in D5W MINI-BAG PLUS 50 ML IV SCH (20:00)
[2023-10-03] MEDS: CEFEPIME HCL 1 GM in D5W MINI-BAG PLUS 50 ML IV SCH (21:31)
[2023-10-03] MEDS: ACETAMINOPHEN TAB 650MG DOSE (2X325MG) PO PRN (22:30)
[2023-10-04] VITALS (76 sets, daily range): BP systolic 92–155; BP diastolic 52–77; TEMP 99–101.7; O2SAT 90–100
[2023-10-04] MEDS ORDERED: SODIUM CHLORIDE 0.9% 1000ML IV PRN (00:15)
[2023-10-04] MEDS ORDERED: HEPARIN 1,000UNITS/ML 10ML VIAL (FOR RADIOLOGY & DIALYSIS ONLY) XX SCH (00:15)
[2023-10-04] MEDS ORDERED: HEPARIN 1,000UNITS/ML 10ML VIAL (FOR RADIOLOGY & DIALYSIS ONLY) IV PRN (00:15)
[2023-10-04 06:02] LABS: MEAN CORPUSCULAR HEMOGLOBIN 31.2 pg (27.0-33.0); MEAN CORPUSCULAR HGB CONC 33.7 g/dl (32.0-36.5); MEAN CORPUSCULAR VOLUME 92.8 fl (80.0-96.0); RED BLOOD COUNT 2.21 10^6/uL (4.30-6.10); WHITE BLOOD COUNT 16.6 10^3/uL (4.0-10.0)
[2023-10-04 06:09] LABS: HEMATOCRIT 20.5 % (42.0-52.0); HEMOGLOBIN 6.9 g/dl (13.5-17.5)
[2023-10-04 06:13] LABS: ALBUMIN 1.8 G/DL (3.2-5.2); ALKALINE PHOSPHATASE 112 U/L (46-116); ALT/SGPT 11 U/L (7.0-40); AST/SGOT < 8 U/L (<34); BILIRUBIN,TOTAL < 0.2 MG/DL (0.3-1.2); BLOOD UREA NITROGEN 137 MG/DL (9-23); CALCIUM LEVEL 7.4 MG/DL (8.5-10.1); CARBON DIOXIDE LEVEL 26 MMOL/L (20-31); CHLORIDE LEVEL 105 MMOL/L (98-107); CREATININE FOR GFR 6.42 MG/DL (0.70-1.30); GLUCOSE, FASTING 175 MG/DL (60-100); MAGNESIUM LEVEL 1.6 MG/DL (1.8-2.4); POTASSIUM SERUM 3.6 MMOL/L (3.5-5.1); SODIUM LEVEL 144 MMOL/L (136-145); TOTAL PROTEIN 4.4 G/DL (5.7-8.2)
[2023-10-04 06:18] LABS: ABG HCO3 24.1 MMOL/L (22.0-26.0); ABG O2 SATURATION 97.9 % (95.0-99.0); ABG PARTIAL PRESSURE CO2 36.5 mmHg (35.0-45.0); ABG PARTIAL PRESSURE O2 114.8 mmHg (75.0-100.0); ABG STANDARD HCO3 24.5 MMOL/L. (22.0-26.0); ABG TOTAL CO2 25.2 MMOL/L (22.0-29.0); ABG pH (ARTERIAL) 7.438 UNITS (7.350-7.450)
[2023-10-04 06:51] LABS: PLATELET COUNT, AUTOMATED 66 10^3/uL (150-450)
[2023-10-04] MEDS: MULTIVITAMINS/MINERALS THERAP 1 TAB PO SCH (08:43)
[2023-10-04] MEDS: MAG SULF 1GM/100ML (MAG RUN) 1 GM in IV 1 EA IV ONE (08:43)
[2023-10-04] MEDS: THIAMINE 100 MG TAB PO SCH (08:43)
[2023-10-04] MEDS: FOLIC ACID 1MG TAB PO SCH (08:43)
[2023-10-04] MEDS: PANTOPRAZOLE 40MG VIAL IV SCH (08:43)
[2023-10-04] MEDS: POTASSIUM CHLORIDE 10% LIQ 20MEQ/15ML UDC NG ONE (13:37)
[2023-10-04 14:49] LABS: ABG BASE EXCESS -1.7 (-2.0-2.0); ABG HCO3 21.7 MMOL/L (22.0-26.0); ABG PARTIAL PRESSURE CO2 31.7 mmHg (35.0-45.0); ABG PARTIAL PRESSURE O2 126.1 mmHg (75.0-100.0); ABG TOTAL CO2 22.7 MMOL/L (22.0-29.0); ABG pH (ARTERIAL) 7.454 UNITS (7.350-7.450)
[2023-10-04] MEDS: cefTRIAXone SOD 2 GM in D5W MINI-BAG PLUS 50 ML IV SCH (20:51)
[2023-10-05] VITALS (51 sets, daily range): BP systolic 105–187; BP diastolic 59–100; TEMP 98.9–100.9; O2SAT 92–100
[2023-10-05 05:20] LABS: HEMATOCRIT 26.9 % (42.0-52.0); MEAN CORPUSCULAR HEMOGLOBIN 30.5 pg (27.0-33.0); MEAN CORPUSCULAR HGB CONC 33.1 g/dl (32.0-36.5); MEAN CORPUSCULAR VOLUME 92.1 fl (80.0-96.0); RED BLOOD COUNT 2.92 10^6/uL (4.30-6.10); WHITE BLOOD COUNT 13.3 10^3/uL (4.0-10.0)
[2023-10-05 05:23] LABS: PLATELET COUNT, AUTOMATED 65 10^3/uL (150-450)
[2023-10-05 05:24] LABS: HEMOGLOBIN 8.9 g/dl (13.5-17.5)
[2023-10-05 05:42] LABS: ALBUMIN 1.7 G/DL (3.2-5.2); ALKALINE PHOSPHATASE 116 U/L (46-116); ALT/SGPT 12 U/L (7.0-40); AST/SGOT < 8 U/L (<34); BILIRUBIN,TOTAL < 0.2 MG/DL (0.3-1.2); BLOOD UREA NITROGEN 72 MG/DL (9-23); CALCIUM LEVEL 8.3 MG/DL (8.5-10.1); CARBON DIOXIDE LEVEL 27 MMOL/L (20-31); CHLORIDE LEVEL 109 MMOL/L (98-107); CREATININE FOR GFR 4.04 MG/DL (0.70-1.30); GLUCOSE, FASTING 115 MG/DL (60-100); MAGNESIUM LEVEL 1.7 MG/DL (1.8-2.4); POTASSIUM SERUM 3.8 MMOL/L (3.5-5.1); SODIUM LEVEL 143 MMOL/L (136-145); TOTAL PROTEIN 4.5 G/DL (5.7-8.2)
[2023-10-05] MEDS: MAG SULF 1GM/100ML (MAG RUN) 1 GM in IV 1 EA IV SCH (05:59)
[2023-10-05 06:16] LABS: ABG BASE EXCESS 1.4 (-2.0-2.0); ABG HCO3 25.1 MMOL/L (22.0-26.0); ABG O2 SATURATION 98.4 % (95.0-99.0); ABG PARTIAL PRESSURE CO2 36.1 mmHg (35.0-45.0); ABG PARTIAL PRESSURE O2 164.6 mmHg (75.0-100.0); ABG STANDARD HCO3 25.7 MMOL/L. (22.0-26.0); ABG TOTAL CO2 26.2 MMOL/L (22.0-29.0)
[2023-10-05] MEDS: HEPARIN SOD (PORCINE) 5000UNITS/ML 1ML VIAL/SYRINGE SQ SCH (08:12)
[2023-10-05] MEDS: MIRALAX *UNIT DOSE* 17GM PACKET PO SCH (11:52)
[2023-10-05] MEDS: DOCUSATE SOD LIQ 100MG/10ML UDC PO SCH (11:52)
[2023-10-05] MEDS: SENNA 8.6 MG TAB (SENOKOT) PO SCH (11:52)
[2023-10-05] MEDS: dexmedeTOMidine 200 MCG in IV 1 EA IV SCH (13:00)
[2023-10-06] VITALS (45 sets, daily range): BP systolic 85–162; BP diastolic 50–88; TEMP 99–100.9; O2SAT 91–98
[2023-10-06 05:22] LABS: HEMATOCRIT 28.9 % (42.0-52.0); HEMOGLOBIN 9.6 g/dl (13.5-17.5); MEAN CORPUSCULAR HEMOGLOBIN 30.8 pg (27.0-33.0); MEAN CORPUSCULAR HGB CONC 33.2 g/dl (32.0-36.5); MEAN CORPUSCULAR VOLUME 92.6 fl (80.0-96.0); RED BLOOD COUNT 3.12 10^6/uL (4.30-6.10); WHITE BLOOD COUNT 11.7 10^3/uL (4.0-10.0)
[2023-10-06 05:34] LABS: PLATELET COUNT, AUTOMATED 84 10^3/uL (150-450)
[2023-10-06 05:51] LABS: ALBUMIN 1.8 G/DL (3.2-5.2); BILIRUBIN,TOTAL 0.3 MG/DL (0.3-1.2); CALCIUM LEVEL 8.8 MG/DL (8.5-10.1); CREATININE FOR GFR 4.22 MG/DL (0.70-1.30); GLOMERULAR FILTRATION RATE 16.2 (>60); MAGNESIUM LEVEL 2.2 MG/DL (1.8-2.4); POTASSIUM SERUM 3.8 MMOL/L (3.5-5.1); TOTAL PROTEIN 4.8 G/DL (5.7-8.2)
[2023-10-06] MEDS ORDERED: HEPARIN 1,000UNITS/ML 10ML VIAL (FOR RADIOLOGY & DIALYSIS ONLY) IV PRN (08:30)
[2023-10-06] MEDS ORDERED: SODIUM CHLORIDE 0.9% 1000ML IV PRN (08:30)
[2023-10-06] MEDS: SERTRALINE 100 MG TAB PO SCH (09:33)
[2023-10-06] MEDS: PROPRANOLOL 20 MG TAB PO SCH (09:33)
[2023-10-06] MEDS: OLANZapine 5 MG TAB PO SCH (09:33)
[2023-10-06] MEDS: HEPARIN 1,000UNITS/ML 10ML VIAL (FOR RADIOLOGY & DIALYSIS ONLY) XX SCH (11:38)
[2023-10-06] MEDS: LEVOTHYROXINE 75MCG TABLET (0.075MG) PO SCH (13:11)
[2023-10-06 17:47] LABS: BASO % 0.3 % (0.0-1.0); EOS # 0.3 10^3/uL (0.0-0.5); EOS % 2.4 % (0.0-3.0); HEMATOCRIT 30.9 % (42.0-52.0); HEMOGLOBIN 10.2 g/dl (13.5-17.5); LYMPH # 0.8 10^3/uL (1.5-5.0); LYMPH % 5.7 % (24.0-44.0); MEAN CORPUSCULAR HEMOGLOBIN 30.6 pg (27.0-33.0); MEAN CORPUSCULAR VOLUME 92.8 fl (80.0-96.0); MONO # 0.5 10^3/uL (0.0-0.8); MONO % 3.5 % (2.0-8.0); NEUTROPHILS # 12.1 10^3/uL (1.5-8.5); NEUTROPHILS % 85.8 % (36.0-66.0); PLATELET COUNT, AUTOMATED 102 10^3/uL (150-450); RED BLOOD COUNT 3.33 10^6/uL (4.30-6.10); WHITE BLOOD COUNT 14.1 10^3/uL (4.0-10.0)
[2023-10-06 18:29] LABS: ALBUMIN 1.9 G/DL (3.2-5.2); BILIRUBIN,TOTAL 0.3 MG/DL (0.3-1.2); CALCIUM LEVEL 9.7 MG/DL (8.5-10.1); CREATININE FOR GFR 2.36 MG/DL (0.70-1.30); GLOMERULAR FILTRATION RATE 31.7 (>60); POTASSIUM SERUM 3.8 MMOL/L (3.5-5.1); TOTAL PROTEIN 5.2 G/DL (5.7-8.2)
[2023-10-06] MEDS: QUEtiapine FUMARATE 100 MG TAB PO SCH (20:46)
[2023-10-06] MEDS: PANTOPRAZOLE 40MG VIAL IV SCH (20:58)
[2023-10-07] VITALS (26 sets, daily range): BP systolic 115–169; BP diastolic 63–101; TEMP 98.5–102.5; O2SAT 87–99
[2023-10-07] MEDS ORDERED: HEPARIN SOD (PORCINE) 5000UNITS/ML 1ML VIAL/SYRINGE As Ordered ONE (08:39)
[2023-10-07] MEDS: D5W/0.45% SODIUM CHLORIDE 1,000 ML IV SCH (11:00)
[2023-10-07] MEDS: OLANZapine INTRAMUSCULAR 10MG VIAL IM ONE (11:30)
[2023-10-07] MEDS ORDERED: OLANZapine INTRAMUSCULAR 10MG VIAL As Ordered ONE (11:55)
[2023-10-07] MEDS: ACETAMINOPHEN *IV* 1,000 MG in IV 1 EA IV STA (13:02)
[2023-10-07] MEDS: LORazepam 2 MG/ML 1ML VIAL IV PRN ×2 (13:19→14:44)
[2023-10-07 14:04] LABS: BILIRUBIN,TOTAL 0.4 MG/DL (0.3-1.2); CALCIUM LEVEL 9.5 MG/DL (8.5-10.1); CREATININE FOR GFR 3.01 MG/DL (0.70-1.30); GLOMERULAR FILTRATION RATE 23.9 (>60); MAGNESIUM LEVEL 1.8 MG/DL (1.8-2.4); POTASSIUM SERUM 3.9 MMOL/L (3.5-5.1); TOTAL PROTEIN 5.2 G/DL (5.7-8.2)
[2023-10-07 15:21] LABS: HEMATOCRIT 28.5 % (42.0-52.0); HEMOGLOBIN 9.3 g/dl (13.5-17.5); MEAN CORPUSCULAR HEMOGLOBIN 30.3 pg (27.0-33.0); MEAN CORPUSCULAR HGB CONC 32.6 g/dl (32.0-36.5); MEAN CORPUSCULAR VOLUME 92.8 fl (80.0-96.0); PLATELET COUNT, AUTOMATED 100 10^3/uL (150-450); RED BLOOD COUNT 3.07 10^6/uL (4.30-6.10); WHITE BLOOD COUNT 12.2 10^3/uL (4.0-10.0)
[2023-10-07] MEDS: QUEtiapine FUMARATE 200 MG TAB PO SCH (19:58)
[2023-10-07] MEDS: ACETAMINOPHEN *IV* 1,000 MG in IV 1 EA IV PRN (22:32)
[2023-10-08] VITALS (33 sets, daily range): BP systolic 112–174; BP diastolic 67–104; TEMP 100.2–103.6; O2SAT 90–100
[2023-10-08 06:21] LABS: BASO % 0.5 % (0.0-1.0); EOS # 0.2 10^3/uL (0.0-0.5); EOS % 1.9 % (0.0-3.0); HEMATOCRIT 28.5 % (42.0-52.0); HEMOGLOBIN 9.2 g/dl (13.5-17.5); LYMPH # 0.5 10^3/uL (1.5-5.0); MEAN CORPUSCULAR HEMOGLOBIN 30.6 pg (27.0-33.0); MEAN CORPUSCULAR HGB CONC 32.3 g/dl (32.0-36.5); MEAN CORPUSCULAR VOLUME 94.7 fl (80.0-96.0); MONO # 0.5 10^3/uL (0.0-0.8); MONO % 5.8 % (2.0-8.0); NEUTROPHILS # 7.3 10^3/uL (1.5-8.5); NEUTROPHILS % 84.6 % (36.0-66.0); RED BLOOD COUNT 3.01 10^6/uL (4.30-6.10); WHITE BLOOD COUNT 8.6 10^3/uL (4.0-10.0)
[2023-10-08 06:24] LABS: PLATELET COUNT, AUTOMATED 91 10^3/uL (150-450)
[2023-10-08 06:49] LABS: ALBUMIN 2.1 G/DL (3.2-5.2); ALKALINE PHOSPHATASE 127 U/L (46-116); ALT/SGPT 34 U/L (7.0-40); AST/SGOT 15 U/L (<34); BILIRUBIN,TOTAL 0.3 MG/DL (0.3-1.2); BLOOD UREA NITROGEN 60 MG/DL (9-23); CALCIUM LEVEL 9.3 MG/DL (8.5-10.1); CARBON DIOXIDE LEVEL 26 MMOL/L (20-31); CHLORIDE LEVEL 112 MMOL/L (98-107); GLOMERULAR FILTRATION RATE 21.5 (>60); GLUCOSE, FASTING 97 MG/DL (60-100); MAGNESIUM LEVEL 1.8 MG/DL (1.8-2.4); POTASSIUM SERUM 3.8 MMOL/L (3.5-5.1); SODIUM LEVEL 149 MMOL/L (136-145); TOTAL PROTEIN 5.5 G/DL (5.7-8.2)
[2023-10-08] MEDS: KCL 20MEQ IN D5W 1000ML 1,000 ML IV SCH (09:47)
[2023-10-08] MEDS: ACETAMINOPHEN *IV* 1,000 MG in IV 1 EA IV STA (11:32)
[2023-10-08] MEDS: LITHIUM CARBONATE 150 MG CAP PO SCH (12:39)
[2023-10-08 13:02] LABS: ERYTHROCYTE SEDIMENTATION RATE 74 mm/hr (0-15); PROCALCITONIN >50.00 ng/ml
[2023-10-08] MEDS ORDERED: VANCOMYCIN HCL 1,000 MG, VIAL MATE ADAPTER 1 EACH in D5W 250 ML IV SCH (13:25)
[2023-10-08] MEDS: DOXYCYCLINE HYCLATE 100 MG in D5W MINI-BAG PLUS 100 ML IV SCH (15:07)
[2023-10-08] MEDS ORDERED: PIPERACILLIN/TAZOBACTAM SOD 4.5 GM in D5W MINI-BAG PLUS 50 ML IV SCH (17:00)
[2023-10-08] MEDS: PIPERACILLIN/TAZOBACTAM SOD 4.5 GM in D5W MINI-BAG PLUS 50 ML IV SCH (18:26)
[2023-10-09] VITALS (33 sets, daily range): BP systolic 100–167; BP diastolic 55–96; TEMP 98.2–101.5; O2SAT 87–99
[2023-10-09 05:21] LABS: BILIRUBIN,TOTAL 0.2 MG/DL (0.3-1.2); CALCIUM LEVEL 9.7 MG/DL (8.5-10.1); CREATININE FOR GFR 3.11 MG/DL (0.70-1.30); MAGNESIUM LEVEL 1.6 MG/DL (1.8-2.4); PHOSPHORUS LEVEL 6.3 MG/DL (2.5-4.9); POTASSIUM SERUM 3.8 MMOL/L (3.5-5.1); TOTAL PROTEIN 5.3 G/DL (5.7-8.2)
[2023-10-09 05:52] LABS: BASO % 0.5 % (0.0-1.0); EOS # 0.2 10^3/uL (0.0-0.5); EOS % 3.5 % (0.0-3.0); HEMATOCRIT 26.7 % (42.0-52.0); HEMOGLOBIN 8.6 g/dl (13.5-17.5); LYMPH # 0.7 10^3/uL (1.5-5.0); LYMPH % 13.5 % (24.0-44.0); MEAN CORPUSCULAR HEMOGLOBIN 30.3 pg (27.0-33.0); MEAN CORPUSCULAR HGB CONC 32.2 g/dl (32.0-36.5); MONO # 0.3 10^3/uL (0.0-0.8); NEUTROPHILS # 4.2 10^3/uL (1.5-8.5); PLATELET COUNT, AUTOMATED 110 10^3/uL (150-450); RED BLOOD COUNT 2.84 10^6/uL (4.30-6.10); WHITE BLOOD COUNT 5.5 10^3/uL (4.0-10.0)
[2023-10-09] MEDS: MAG SULF 1GM/100ML (MAG RUN) 1 GM in IV 1 EA IV ONE (08:47)
[2023-10-09] MEDS: ALPRAZolam 0.5 MG TAB PO PRN (12:42)
[2023-10-10] VITALS (16 sets, daily range): BP systolic 127–156; BP diastolic 67–87; TEMP 97.8–100.6; O2SAT 89–98
[2023-10-10 06:25] LABS: BASO % 0.4 % (0.0-1.0); EOS # 0.2 10^3/uL (0.0-0.5); HEMATOCRIT 24.9 % (42.0-52.0); HEMOGLOBIN 8.1 g/dl (13.5-17.5); LYMPH # 1.3 10^3/uL (1.5-5.0); LYMPH % 27.7 % (24.0-44.0); MEAN CORPUSCULAR HEMOGLOBIN 30.3 pg (27.0-33.0); MEAN CORPUSCULAR HGB CONC 32.5 g/dl (32.0-36.5); MEAN CORPUSCULAR VOLUME 93.3 fl (80.0-96.0); MONO # 0.5 10^3/uL (0.0-0.8); MONO % 10.5 % (2.0-8.0); NEUTROPHILS # 2.7 10^3/uL (1.5-8.5); NEUTROPHILS % 56.4 % (36.0-66.0); PLATELET COUNT, AUTOMATED 133 10^3/uL (150-450); RED BLOOD COUNT 2.67 10^6/uL (4.30-6.10); WHITE BLOOD COUNT 4.8 10^3/uL (4.0-10.0)
[2023-10-10 06:46] LABS: BILIRUBIN,TOTAL 0.3 MG/DL (0.3-1.2); CALCIUM LEVEL 10.7 MG/DL (8.5-10.1); CREATININE FOR GFR 2.76 MG/DL (0.70-1.30); GLOMERULAR FILTRATION RATE 26.4 (>60); MAGNESIUM LEVEL 1.5 MG/DL (1.8-2.4); PHOSPHORUS LEVEL 6.1 MG/DL (2.5-4.9); POTASSIUM SERUM 3.7 MMOL/L (3.5-5.1); TOTAL PROTEIN 5.3 G/DL (5.7-8.2)
[2023-10-10] MEDS: ACETAMINOPHEN 325MG/10.15ML UDC PO PRN (08:23)
[2023-10-10] MEDS ORDERED: NEOSPORIN TOP OINT 15GM TOP PRN (10:35)
[2023-10-10 11:54] LABS: PROCALCITONIN 43.1 ng/ml
[2023-10-10] MEDS: SODIUM CHLORIDE 0.9% INJ 10 ML SYR IV SCH (16:00)
[2023-10-10 16:23] LABS: LITHIUM LEVEL 0.18 MMOL/L (1.0-1.20)
[2023-10-10] MEDS: MAG SULF 1GM/100ML (MAG RUN) 1 GM in IV 1 EA IV ONE (16:50)
[2023-10-11] VITALS (12 sets, daily range): BP systolic 121–158; BP diastolic 74–93; TEMP 99.5–99.9; O2SAT 95–97
[2023-10-11 05:57] LABS: BASO % 0.6 % (0.0-1.0); EOS # 0.2 10^3/uL (0.0-0.5); EOS % 3.8 % (0.0-3.0); HEMATOCRIT 26.4 % (42.0-52.0); HEMOGLOBIN 8.6 g/dl (13.5-17.5); LYMPH # 1.7 10^3/uL (1.5-5.0); LYMPH % 31.6 % (24.0-44.0); MEAN CORPUSCULAR HEMOGLOBIN 30.5 pg (27.0-33.0); MEAN CORPUSCULAR HGB CONC 32.6 g/dl (32.0-36.5); MEAN CORPUSCULAR VOLUME 93.6 fl (80.0-96.0); MONO # 0.5 10^3/uL (0.0-0.8); MONO % 9.7 % (2.0-8.0); NEUTROPHILS # 2.8 10^3/uL (1.5-8.5); NEUTROPHILS % 52.4 % (36.0-66.0); PLATELET COUNT, AUTOMATED 156 10^3/uL (150-450); RED BLOOD COUNT 2.82 10^6/uL (4.30-6.10); WHITE BLOOD COUNT 5.3 10^3/uL (4.0-10.0)
[2023-10-11 06:33] LABS: BLOOD UREA NITROGEN 38 MG/DL (9-23); CARBON DIOXIDE LEVEL 29 MMOL/L (20-31); CHLORIDE LEVEL 103 MMOL/L (98-107); CREATININE FOR GFR 2.36 MG/DL (0.70-1.30); GLOMERULAR FILTRATION RATE 31.7 (>60); GLUCOSE, FASTING 98 MG/DL (60-100); MAGNESIUM LEVEL 1.4 MG/DL (1.8-2.4); POTASSIUM SERUM 4.2 MMOL/L (3.5-5.1); SODIUM LEVEL 138 MMOL/L (136-145)
[2023-10-11] MEDS: MAG SULF 1GM/100ML (MAG RUN) 1 GM in IV 1 EA IV SCH ×2 (10:06→11:40)
[2023-10-11] MEDS ORDERED: VARIBAR NECTAR 40% w/v 240ML SUSP BTL As Ordered ONE (11:09)
[2023-10-11] MEDS ORDERED: VARIBAR PUDDING 40% w/v 230ML TUBE As Ordered ONE (11:09)
[2023-10-11] MEDS ORDERED: BARIUM SULFATE 700 MG TABLET (E-Z-DISK) As Ordered ONE (11:10)
[2023-10-11] MEDS ORDERED: E-Z-PAQUE 96% w/w SUSP 176GM BTL As Ordered ONE (11:10)
[2023-10-11] MEDS ORDERED: MAG SULF 1GM/100ML (MAG RUN) 1 GM in IV 1 EA IV ONE (11:30)
[2023-10-11 18:13] LABS: HIV 1&2 SCREEN NEGATIVE (NEGATIVE)
[2023-10-11] MEDS: SODIUM CHLORIDE 0.9% INJ 10 ML SYR IV PRN (21:16)
[2023-10-11] MEDS: ALPRAZolam 0.5 MG TAB PO PRN (22:03)
[2023-10-12 03:33] VITALS: BP 156/82; TEMP 99.1; O2SAT 98
[2023-10-12 06:07] LABS: BASO # 0.1 10^3/uL (0.0-0.2); EOS # 0.3 10^3/uL (0.0-0.5); EOS % 4.8 % (0.0-3.0); HEMATOCRIT 26.2 % (42.0-52.0); HEMOGLOBIN 8.8 g/dl (13.5-17.5); LYMPH # 1.6 10^3/uL (1.5-5.0); LYMPH % 25.8 % (24.0-44.0); MEAN CORPUSCULAR HEMOGLOBIN 30.8 pg (27.0-33.0); MEAN CORPUSCULAR HGB CONC 33.6 g/dl (32.0-36.5); MEAN CORPUSCULAR VOLUME 91.6 fl (80.0-96.0); MONO # 0.5 10^3/uL (0.0-0.8); MONO % 7.9 % (2.0-8.0); NEUTROPHILS # 3.5 10^3/uL (1.5-8.5); PLATELET COUNT, AUTOMATED 192 10^3/uL (150-450); RED BLOOD COUNT 2.86 10^6/uL (4.30-6.10); WHITE BLOOD COUNT 6.2 10^3/uL (4.0-10.0)
[2023-10-12 06:32] LABS: CALCIUM LEVEL 10.7 MG/DL (8.5-10.1); CREATININE FOR GFR 2.15 MG/DL (0.70-1.30); GLOMERULAR FILTRATION RATE 35.2 (>60); MAGNESIUM LEVEL 1.4 MG/DL (1.8-2.4)
[2023-10-12 08:04] VITALS: BP 136/78; TEMP 100; O2SAT 97
[2023-10-12] MEDS: MAG SULF 1GM/100ML (MAG RUN) 1 GM in IV 1 EA IV SCH (08:33)
[2023-10-12 12:00] VITALS: BP 109/70; TEMP 98.8; O2SAT 97
[2023-10-12 16:14] VITALS: BP 141/80; TEMP 98.2; O2SAT 92
[2023-10-12] MEDS: DOXYCYCLINE HYCLATE 100MG TABLET PO SCH (17:50)
[2023-10-12 20:02] VITALS: BP 138/84; TEMP 97.3; O2SAT 95
[2023-10-13 00:37] VITALS: BP 112/66; TEMP 98; O2SAT 94
[2023-10-13 03:20] VITALS: BP 111/59; TEMP 97.6; O2SAT 93
[2023-10-13 08:11] VITALS: BP 127/76; TEMP 97.8; O2SAT 90
[2023-10-13 09:47] LABS: CALCIUM LEVEL 11.3 MG/DL (8.5-10.1); CREATININE FOR GFR 2.26 MG/DL (0.70-1.30); GLOMERULAR FILTRATION RATE 33.3 (>60); MAGNESIUM LEVEL 1.7 MG/DL (1.8-2.4); POTASSIUM SERUM 4.2 MMOL/L (3.5-5.1)
[2023-10-13 12:00] VITALS: BP 114/67; TEMP 97.8; O2SAT 98
[2023-10-13 16:20] LABS: C REACTIVE PROTEIN QUANTITATIV 3.1 MG/DL (<1.0)
[2023-10-13 19:38] VITALS: BP 132/78; TEMP 97.1; O2SAT 96
[2023-10-13 21:57] VITALS: BP 133/73; TEMP 97.7; O2SAT 96
[2023-10-14 04:38] VITALS: BP 130/73; TEMP 98.1; O2SAT 93
[2023-10-14 08:00] VITALS: BP 138/86; TEMP 98.1; O2SAT 92
[2023-10-14 09:03] LABS: CALCIUM LEVEL 11.3 MG/DL (8.5-10.1); CREATININE FOR GFR 2.44 MG/DL (0.70-1.30); GLOMERULAR FILTRATION RATE 30.5 (>60); MAGNESIUM LEVEL 1.6 MG/DL (1.8-2.4); POTASSIUM SERUM 3.7 MMOL/L (3.5-5.1)
[2023-10-14 12:15] VITALS: BP 139/83; TEMP 98.2; O2SAT 95
[2023-10-14] MEDS: MAG SULF 1GM/100ML (MAG RUN) 1 GM in IV 1 EA IV SCH (15:24)
[2023-10-14] MEDS: MAGNESIUM OXIDE 400MG TAB (MAG-OX) PO SCH (20:43)
[2023-10-14 20:45] VITALS: BP 157/89; TEMP 97.7; O2SAT 100
[2023-10-15 04:40] VITALS: BP 124/67; TEMP 97.9; O2SAT 97
[2023-10-15] MEDS: PANTOPRAZOLE 40MG TAB (PROTONIX) PO SCH (08:42)
[2023-10-15 12:00] VITALS: BP 143/90; TEMP 98.2; O2SAT 98
[2023-10-15 20:11] VITALS: BP 128/75; TEMP 98.1; O2SAT 96
[2023-10-16 04:14] VITALS: BP 124/65; TEMP 98.1; O2SAT 92
[2023-10-16 08:49] LABS: HEMATOCRIT 28.8 % (42.0-52.0); HEMOGLOBIN 9.3 g/dl (13.5-17.5); MEAN CORPUSCULAR HEMOGLOBIN 30.5 pg (27.0-33.0); MEAN CORPUSCULAR HGB CONC 32.3 g/dl (32.0-36.5); MEAN CORPUSCULAR VOLUME 94.4 fl (80.0-96.0); PLATELET COUNT, AUTOMATED 470 10^3/uL (150-450); RED BLOOD COUNT 3.05 10^6/uL (4.30-6.10); WHITE BLOOD COUNT 7.7 10^3/uL (4.0-10.0)
[2023-10-16 08:52] VITALS: BP 123/81
[2023-10-16 09:14] LABS: ALBUMIN 2.3 G/DL (3.2-5.2); BILIRUBIN,TOTAL 0.2 MG/DL (0.3-1.2); CALCIUM LEVEL 10.7 MG/DL (8.5-10.1); CREATININE FOR GFR 2.2 MG/DL (0.70-1.30); GLOMERULAR FILTRATION RATE 34.3 (>60); MAGNESIUM LEVEL 1.4 MG/DL (1.8-2.4); TOTAL PROTEIN 5.8 G/DL (5.7-8.2)
[2023-10-16 09:17] LABS: BASOPHILS 2 % (0-1); EOSINOPHILS 1 % (0-3); LYMPHOCYTES 28 % (16-44); METAMYELOCYTES 3 % (0-0); MONOCYTES 5 % (0-5); MYELOCYTES 1 % (0-0); NEUTROPHILS 53 % (28-66)
[2023-10-16 09:19] LABS: PLATELET CLUMPS SMALL AMT; PLATELET ESTIMATE INCREASED (NORMAL); POIKILOCYTOSIS 1+
[2023-10-16] MEDS ORDERED: MAGN400T2 PO (10:25)
[2023-10-16] MEDS: MAG SULF 1GM/100ML (MAG RUN) 1 GM in IV 1 EA IV SCH (10:42)
[2023-10-16 12:00] VITALS: BP 140/79; TEMP 97.9; O2SAT 97
== END 2023-10-16 13:30 | disposition home health service (06) | DRG 207 ==
LOC: M ED 10:49 → M ED INP 15:32 → M ICU 17:17 → M PCU 10-09 17:24 → M MS5PR 10-13 21:58
PROVIDERS: ADMIT Internal Medicine Pulmonary Disease; ATTEND Hospitalist
PROC: 5A1955Z Respiratory Ventilation, Greater than 96 Consecutive Hours (ICD-10-PCS; principal; 2023-09-30)
PROC: 0BH17EZ Insertion of Endotracheal Airway into Trachea, Via Natural or Artificial Opening (ICD-10-PCS; 2023-09-30)
PROC: 30233N1 Transfusion of Nonautologous Red Blood Cells into Peripheral Vein, Percutaneous Approach (ICD-10-PCS; 2023-09-30)
PROC: 02HV33Z Insertion of Infusion Device into Superior Vena Cava, Percutaneous Approach (ICD-10-PCS; 2023-10-03)
PROC: 0BC78ZZ Extirpation of Matter from Left Main Bronchus, Via Natural or Artificial Opening Endoscopic (ICD-10-PCS; 2023-10-03)
PROC: 5A1D70Z Performance of Urinary Filtration, Intermittent, Less than 6 Hours Per Day (ICD-10-PCS; 2023-10-03)
PROC: B246ZZZ Ultrasonography of Right and Left Heart (ICD-10-PCS; 2023-10-12)
DX: J96.01 Acute respiratory failure with hypoxia (principal); J14 Pneumonia due to Hemophilus influenzae; A41.9 Sepsis, unspecified organism; G93.41 Metabolic encephalopathy; N17.9 Acute kidney failure, unspecified; M62.82 Rhabdomyolysis; E87.20 Acidosis, unspecified; E87.0 Hyperosmolality and hypernatremia; J98.11 Atelectasis; E87.6 Hypokalemia; D69.59 Other secondary thrombocytopenia; E86.0 Dehydration; E83.42 Hypomagnesemia; N13.9 Obstructive and reflux uropathy, unspecified; D64.9 Anemia, unspecified; F32.A Depression, unspecified; F41.9 Anxiety disorder, unspecified; F60.3 Borderline personality disorder; I10 Essential (primary) hypertension; F10.129 Alcohol abuse with intoxication, unspecified; E03.9 Hypothyroidism, unspecified; Z79.890 Hormone replacement therapy; Z79.899 Other long term (current) drug therapy; Z87.891 Personal history of nicotine dependence

== ENCOUNTER → 2023-10-28 | Outpatient (REF) | payer MEDICARE, MEDICAID ==
[~2023-10-28] MED LIST changes: +MAGN400T2 PO; +ZOLO100T PO
[2023-10-28 18:10] LABS: BASO % 0.4 % (0.0-1.0); EOS # 0.1 10^3/uL (0.0-0.5); EOS % 1.3 % (0.0-3.0); HEMATOCRIT 35.5 % (42.0-52.0); HEMOGLOBIN 11.7 g/dl (13.5-17.5); IRON (FE) 60 UG/DL (65-175); LYMPH # 2.3 10^3/uL (1.5-5.0); LYMPH % 22.4 % (24.0-44.0); MEAN CORPUSCULAR HEMOGLOBIN 30.9 pg (27.0-33.0); MEAN CORPUSCULAR VOLUME 93.7 fl (80.0-96.0); MONO # 0.6 10^3/uL (0.0-0.8); MONO % 5.9 % (2.0-8.0); NEUTROPHILS % 66.6 % (36.0-66.0); PERCENT SATURATION 19.2 % (19.7-50.0); PLATELET COUNT, AUTOMATED 268 10^3/uL (150-450); RED BLOOD COUNT 3.79 10^6/uL (4.30-6.10); TOTAL IRON BINDING CAPACITY 312 UG/DL (250-425); WHITE BLOOD COUNT 10.4 10^3/uL (4.0-10.0)
[2023-10-28 18:16] LABS: ALBUMIN 3.1 G/DL (3.2-5.2); ALKALINE PHOSPHATASE 97 U/L (46-116); ALT/SGPT 32 U/L (7.0-40); AST/SGOT 13 U/L (<34); BILIRUBIN,TOTAL < 0.2 MG/DL (0.3-1.2); BLOOD UREA NITROGEN 11 MG/DL (9-23); CARBON DIOXIDE LEVEL 24 MMOL/L (20-31); CHLORIDE LEVEL 108 MMOL/L (98-107); CREATININE FOR GFR 1.13 MG/DL (0.70-1.30); FERRITIN 431.5 NG/ML (10.5-307.3); FOLATE 21.78 NG/ML (>5.4); GLOMERULAR FILTRATION RATE > 60.0 (>60); GLUCOSE, FASTING 86 MG/DL (60-100); MAGNESIUM LEVEL 1.3 MG/DL (1.8-2.4); POTASSIUM SERUM 3.7 MMOL/L (3.5-5.1); SODIUM LEVEL 138 MMOL/L (136-145); TOTAL PROTEIN 7.1 G/DL (5.7-8.2); VITAMIN B12 LEVEL 439 PG/ML (211-911)
== END ==
LOC: M SFHCLERA 09:34
PROVIDERS: ATTEND Physician Assistant
DX: D64.9 Anemia, unspecified (principal); N17.9 Acute kidney failure, unspecified; R79.0 Abnormal level of blood mineral

== ENCOUNTER 2024-03-15 17:57 | Inpatient (IN) | payer MEDICARE, MEDICAID ==
[~2024-03-15] VITALS: Ht 175.3 cm; Wt 72.7 kg
[~2024-03-15 17:57] MED LIST changes: +LITH450T11 PO; -LITH45TASA PO; -OLAN15TA13 PO; +OLAN15TA69 PO
[2024-03-15] MEDS ORDERED: LORazepam 2 MG TAB PO PRN (18:25)
[2024-03-15 18:34] LABS: HEMATOCRIT 42.8 % (42.0-52.0); HEMOGLOBIN 14.5 g/dl (13.5-17.5); MEAN CORPUSCULAR HEMOGLOBIN 32.4 pg (27.0-33.0); MEAN CORPUSCULAR HGB CONC 33.9 g/dl (32.0-36.5); MEAN CORPUSCULAR VOLUME 95.5 fl (80.0-96.0); PLATELET COUNT, AUTOMATED 203 10^3/uL (150-450); RED BLOOD COUNT 4.48 10^6/uL (4.30-6.10); WHITE BLOOD COUNT 7.6 10^3/uL (4.0-10.0)
[2024-03-15 19:02] LABS: AMPHETAMINES LEVEL URINE NEGATIVE (NEGATIVE); BARBITURATES URINE NEGATIVE (NEGATIVE); COCAINE METABOLITE URINE NEGATIVE (NEGATIVE)
[2024-03-15 19:03] LABS: CANNABINOIDS URINE NEGATIVE (NEGATIVE); METHADONE URINE NEGATIVE (NEGATIVE); OPIATES URINE NEGATIVE (NEGATIVE); PHENCYCLIDINE URINE NEGATIVE (NEGATIVE)
[2024-03-15 19:04] LABS: ETHYL ALCOHOL (ETHANOL) 0.049 % (0.000-0.010)
[2024-03-15 19:05] LABS: SALICYLATE LEVEL < 3.0 MG/DL (<30)
[2024-03-15 19:06] LABS: ALBUMIN 3.2 G/DL (3.2-5.2); ALKALINE PHOSPHATASE 127 U/L (40-129); ALT/SGPT 122 U/L (7.0-40); AST/SGOT 91 U/L (<34); BENZODIAZEPINES URINE POSITIVE (NEGATIVE); BILIRUBIN,DIRECT 0.3 MG/DL (<0.4); BILIRUBIN,TOTAL 0.6 MG/DL (0.3-1.2); BLOOD UREA NITROGEN 10 MG/DL (9-23); CALCIUM LEVEL 9.2 MG/DL (8.5-10.1); CARBON DIOXIDE LEVEL 28 MMOL/L (20-31); CHLORIDE LEVEL 102 MMOL/L (98-107); CREATININE FOR GFR 1.13 MG/DL (0.70-1.30); GLOMERULAR FILTRATION RATE > 60.0 (>60); GLUCOSE, FASTING 98 MG/DL (60-100); POTASSIUM SERUM 3.8 MMOL/L (3.5-5.1); SODIUM LEVEL 139 MMOL/L (136-145); TOTAL PROTEIN 6.8 G/DL (5.7-8.2)
[2024-03-15 19:07] LABS: LITHIUM LEVEL < 0.10 MMOL/L (1.0-1.20)
[2024-03-15] MEDS ORDERED: FOLI1TAB11 PO (19:07)
[2024-03-15 19:08] LABS: THYROID STIMULATING HORMONE 4.335 uIU/ML (0.55-4.78)
[2024-03-15] MEDS ORDERED: HOME MED LIST COMPLETE! XX SCH (19:10)
[2024-03-15] MEDS: THIAMINE 100 MG TAB PO SCH (21:08)
[2024-03-15] MEDS ORDERED: ACETAMINOPHEN 325 MG TAB PO PRN (21:35)
[2024-03-15] MEDS ORDERED: MOM 30ML SUSPENSION UDC PO PRN (21:35)
[2024-03-15] MEDS ORDERED: IBUPROFEN 400MG TAB PO PRN (21:35)
[2024-03-15] MEDS ORDERED: OLANZapine 5 MG TAB PO PRN (21:35)
[2024-03-15] MEDS ORDERED: MAALOX 30 ML SUSP *UDC PO PRN (21:35)
[2024-03-15 22:55] VITALS: BP 137/71
[2024-03-15] MEDS: LORazepam 2 MG TAB PO PRN (22:55)
[2024-03-15] MEDS: traZODone 50 MG TAB PO PRN (22:55)
[2024-03-15] MEDS: diphenhydrAMINE 25MG CAP PO PRN (22:55)
[2024-03-15 23:06] VITALS: BP 137/71; TEMP 97.3; O2SAT 100
[2024-03-16] VITALS (7 sets, daily range): BP systolic 99–168; BP diastolic 57–118; TEMP 97–97.7; O2SAT 98–99
[2024-03-16] MEDS: FOLIC ACID 1MG TAB PO SCH (08:05)
[2024-03-16] MEDS: MULTIVITAMINS/MINERALS THERAP 1 TAB PO SCH (08:05)
[2024-03-16] MEDS: THIAMINE 100 MG TAB PO SCH (08:05)
[2024-03-16] MEDS: NICOTINE 14 MG/24 HR TRANSDERMAL TD SCH (08:06)
[2024-03-16] MEDS ORDERED: MULTIVITAMINS/MINERALS THERAP 1 TAB PO SCH (09:00)
[2024-03-16] MEDS ORDERED: FOLIC ACID 1MG TAB PO SCH (09:00)
[2024-03-16] MEDS: SERTRALINE HCL 25 MG TABLET PO SCH (09:12)
[2024-03-16] MEDS: OLANZapine 5 MG TAB PO SCH (09:12)
[2024-03-16] MEDS: NICOTINE POLACRILEX 2 MG GUM PO PRN (09:13)
[2024-03-16] MEDS ORDERED: traMADol 50 MG TAB PO PRN (14:45)
[2024-03-16] MEDS: amLODIPine 5 MG TAB PO ONE (15:03)
[2024-03-16] MEDS: traMADol 50 MG TAB PO ONE (15:03)
[2024-03-16 15:29] LABS: BASO % 0.4 % (0.0-1.0); EOS # 0.1 10^3/uL (0.0-0.5); HEMATOCRIT 38.7 % (42.0-52.0); HEMOGLOBIN 12.9 g/dl (13.5-17.5); LYMPH # 2.7 10^3/uL (1.5-5.0); LYMPH % 30.3 % (24.0-44.0); MEAN CORPUSCULAR HEMOGLOBIN 31.9 pg (27.0-33.0); MEAN CORPUSCULAR HGB CONC 33.3 g/dl (32.0-36.5); MEAN CORPUSCULAR VOLUME 95.6 fl (80.0-96.0); MONO # 0.5 10^3/uL (0.0-0.8); NEUTROPHILS # 5.5 10^3/uL (1.5-8.5); NEUTROPHILS % 61.5 % (36.0-66.0); PLATELET COUNT, AUTOMATED 178 10^3/uL (150-450); RED BLOOD COUNT 4.05 10^6/uL (4.30-6.10); WHITE BLOOD COUNT 8.9 10^3/uL (4.0-10.0)
[2024-03-16 15:47] LABS: ERYTHROCYTE SEDIMENTATION RATE 8 mm/hr (0-15)
[2024-03-16 15:50] LABS: BLOOD UREA NITROGEN 12 MG/DL (9-23); C REACTIVE PROTEIN QUANTITATIV < 0.50 MG/DL (<1.0); CALCIUM LEVEL 9.3 MG/DL (8.5-10.1); CARBON DIOXIDE LEVEL 27 MMOL/L (20-31); CHLORIDE LEVEL 104 MMOL/L (98-107); CREATININE FOR GFR 0.99 MG/DL (0.70-1.30); GLOMERULAR FILTRATION RATE > 60.0 (>60); GLUCOSE, FASTING 92 MG/DL (60-100); POTASSIUM SERUM 3.9 MMOL/L (3.5-5.1); SODIUM LEVEL 138 MMOL/L (136-145)
[2024-03-16] MEDS ORDERED: ISOVUE-370 76% 100ML VIAL As Ordered ONE (16:27)
[2024-03-16] MEDS: traMADol 50 MG TAB PO SCH (17:00)
[2024-03-16] MEDS: cloNIDine 0.2 MG TAB PO ONE (17:19)
[2024-03-16] MEDS: IBUPROFEN 400MG TAB PO SCH (17:33)
[2024-03-16] MEDS ORDERED: cloNIDine 0.1MG TABLET PO PRN (17:35)
[2024-03-16] MEDS: cloNIDine 0.1MG TABLET PO ONE (17:53)
[2024-03-16] MEDS ORDERED: PERCOCET 5MG/325MG TAB PO ONE (18:00)
[2024-03-16] MEDS ORDERED: cefTRIAXone SOD 2GM VIAL IM ONE (18:00)
[2024-03-16] MEDS ORDERED: LACTOBACILLUS ACIDOPHILUS CAP (BACID) PO SCH (18:00)
[2024-03-16] MEDS ORDERED: LIDOCAINE 1% MDV 20ML VIAL IM ONE (18:00)
[2024-03-16] MEDS ORDERED: amLODIPine 5 MG TAB PO SCH (21:00)
[2024-03-16] MEDS ORDERED: metroNIDAZOLE (FLAGYL) 500MG TABLET PO SCH (22:00)
[2024-03-17 06:02] VITALS: BP 109/51; TEMP 97.2; O2SAT 99
[2024-03-17] MEDS ORDERED: CEFUROXIME 500 MG TAB PO SCH (08:00)
[2024-03-17] MEDS ORDERED: SERTRALINE HCL 25 MG TABLET PO SCH (09:00)
[2024-03-17] MEDS: traMADol 50 MG TAB PO PRN (13:37)
[2024-03-17 14:10] VITALS: BP 140/89
[2024-03-17 15:40] VITALS: BP 133/75; TEMP 98.1; O2SAT 100
[2024-03-17 20:47] VITALS: BP 137/94
[2024-03-18 06:55] VITALS: BP 111/57; TEMP 97.1; O2SAT 100
[2024-03-18] MEDS: traMADol 50 MG TAB PO ONE ×2 (10:12→14:26)
[2024-03-18 16:00] VITALS: BP 168/98; TEMP 98.8; O2SAT 99
[2024-03-18] MEDS: cloNIDine 0.1MG TABLET PO ONE (16:41)
[2024-03-18] MEDS: LOSARTAN 50MG TABLET PO ONE (16:41)
[2024-03-19 06:25] VITALS: BP 134/71; TEMP 98.1; O2SAT 97
[2024-03-19 08:28] VITALS: BP 135/84
[2024-03-19 10:36] VITALS: BP 146/72
[2024-03-19] MEDS: LOSARTAN 50MG TABLET PO SCH (10:37)
[2024-03-19] MEDS: PERCOCET 5MG/325MG TAB PO ONE (11:02)
[2024-03-19] MEDS: CHLORHEXIDINE GLUCONATE 0.12 % 15ML UDC (PERIDEX ORAL RINSE) MT SCH (11:03)
[2024-03-19] MEDS: AUGMENTIN 875 MG TAB PO SCH (11:03)
[2024-03-19] MEDS: traMADol 50 MG TAB PO PRN (11:32)
[2024-03-19] MEDS: NICOTINE POLACRILEX 2 MG GUM PO PRN (12:38)
[2024-03-19] MEDS ORDERED: PERCOCET 5MG/325MG TAB PO ONE ×2 (17:00→23:00)
[2024-03-19 19:05] VITALS: BP 132/78; TEMP 98.5; O2SAT 100
[2024-03-20 06:32] VITALS: BP 142/61; TEMP 97.4; O2SAT 97
[2024-03-20] MEDS ORDERED: MOM 30ML SUSPENSION UDC PO PRN (07:10)
[2024-03-20] MEDS ORDERED: SENOKOT S TAB PO PRN (07:10)
[2024-03-20] MEDS: PERCOCET 5MG/325MG TAB PO ONE ×2 (08:54→12:56)
[2024-03-20 09:27] VITALS: BP 155/98
[2024-03-20] MEDS ORDERED: AMOX875T2 PO (10:03)
[2024-03-20] MEDS ORDERED: PERI12LIQ MT (10:03)
[2024-03-20] MEDS ORDERED: LOSA100T46 PO (10:06)
[2024-03-20 10:22] VITALS: BP 155/98
[2024-03-20] MEDS: LOSARTAN 50MG TABLET PO ONE (10:22)
[2024-03-20 14:37] VITALS: BP 142/87; TEMP 97; O2SAT 95
[2024-03-20 14:41] VITALS: O2SAT 95
[2024-03-20] MEDS ORDERED: SERT25TA21 PO (16:14)
[2024-03-20] MEDS ORDERED: OLAN1TAB16 PO (16:14)
[2024-03-20] MEDS ORDERED: PERCOCET 5MG/325MG TAB PO ONE (20:00)
[2024-03-21] MEDS ORDERED: LOSARTAN 50MG TABLET PO SCH (09:00)
[2024-03-21] MEDS ORDERED: IBUPROFEN 400MG TAB PO PRN (18:00)
== END 2024-03-20 17:13 | disposition home or self-care (01) | DRG 885 ==
LOC: M ED 17:57 → M ED INP 21:32 → M PSY 22:27
PROVIDERS: ADMIT Psychiatry & Neurology Neurology; ATTEND Psychiatry & Neurology Neurology
DX: F31.9 Bipolar disorder, unspecified (principal); R45.851 Suicidal ideations; F10.20 Alcohol dependence, uncomplicated; I12.9 Hypertensive chronic kidney disease with stage 1 through stage 4 chronic kidney disease, or unspecified chronic kidney disease; K08.89 Other specified disorders of teeth and supporting structures; N18.9 Chronic kidney disease, unspecified; F42.9 Obsessive-compulsive disorder, unspecified; N40.0 Benign prostatic hyperplasia without lower urinary tract symptoms; Z79.890 Hormone replacement therapy; Z79.899 Other long term (current) drug therapy; Z91.51 Personal history of suicidal behavior

== ENCOUNTER 2024-04-11 17:45 | Emergency (ER) | payer MEDICARE, MEDICAID ==
[~2024-04-11] VITALS: Ht 172.7 cm; Wt 75.0 kg
[~2024-04-11 17:45] MED LIST changes: +AMOX875T2 PO; +LOSA100T46 PO; +OLAN1TAB16 PO; +PERI12LIQ MT; +SERT25TA21 PO
[2024-04-11] MEDS: LORazepam 2 MG/ML 1ML VIAL IV STA (18:32)
[2024-04-11] MEDS: THIAMINE 100 MG TAB PO SCH (18:32)
[2024-04-11 18:42] LABS: BASO # 0.1 10^3/uL (0.0-0.2); BASO % 0.5 % (0.0-1.0); EOS # 0.1 10^3/uL (0.0-0.5); EOS % 0.9 % (0.0-3.0); HEMATOCRIT 43.4 % (42.0-52.0); HEMOGLOBIN 14.4 g/dl (13.5-17.5); LYMPH # 1.7 10^3/uL (1.5-5.0); MEAN CORPUSCULAR HEMOGLOBIN 33.2 pg (27.0-33.0); MEAN CORPUSCULAR HGB CONC 33.2 g/dl (32.0-36.5); MONO # 0.7 10^3/uL (0.0-0.8); MONO % 5.6 % (2.0-8.0); NEUTROPHILS # 9.7 10^3/uL (1.5-8.5); NEUTROPHILS % 78.3 % (36.0-66.0); PLATELET COUNT, AUTOMATED 210 10^3/uL (150-450); RED BLOOD COUNT 4.34 10^6/uL (4.30-6.10); WHITE BLOOD COUNT 12.4 10^3/uL (4.0-10.0)
[2024-04-11 18:59] LABS: AMPHETAMINES LEVEL URINE NEGATIVE (NEGATIVE); BARBITURATES URINE NEGATIVE (NEGATIVE); BENZODIAZEPINES URINE NEGATIVE (NEGATIVE); CANNABINOIDS URINE NEGATIVE (NEGATIVE); COCAINE METABOLITE URINE NEGATIVE (NEGATIVE); METHADONE URINE NEGATIVE (NEGATIVE); OPIATES URINE NEGATIVE (NEGATIVE); PHENCYCLIDINE URINE NEGATIVE (NEGATIVE)
[2024-04-11 19:01] LABS: ETHYL ALCOHOL (ETHANOL) < 0.003 % (0.000-0.010)
[2024-04-11 19:03] LABS: ALBUMIN 3.6 G/DL (3.2-5.2); ALKALINE PHOSPHATASE 108 U/L (40-129); ALT/SGPT 54 U/L (7.0-40); AST/SGOT 25 U/L (<34); BILIRUBIN,DIRECT 0.1 MG/DL (<0.4); BILIRUBIN,TOTAL 0.4 MG/DL (0.3-1.2); BLOOD UREA NITROGEN 14 MG/DL (9-23); CALCIUM LEVEL 9.1 MG/DL (8.5-10.1); CARBON DIOXIDE LEVEL 26 MMOL/L (20-31); CHLORIDE LEVEL 109 MMOL/L (98-107); CREATININE FOR GFR 0.71 MG/DL (0.70-1.30); GLOMERULAR FILTRATION RATE > 60.0 (>60); GLUCOSE, FASTING 79 MG/DL (60-100); POTASSIUM SERUM 3.8 MMOL/L (3.5-5.1); SALICYLATE LEVEL < 3.0 MG/DL (<30); SODIUM LEVEL 143 MMOL/L (136-145); TOTAL PROTEIN 7.3 G/DL (5.7-8.2)
[2024-04-11 19:05] LABS: THYROID STIMULATING HORMONE 5.253 uIU/ML (0.55-4.78)
[2024-04-11 19:08] LABS: CPK CREATINE PHOSPHOKINASE 98 U/L (46-171)
[2024-04-11] MEDS: LORazepam 2 MG TAB PO PRN (19:45)
[2024-04-12] VITALS: TEMP 98.3; O2SAT 95
[2024-04-12 00:01] VITALS: BP 149/74
[2024-04-12] MEDS: ACETAMINOPHEN 325 MG TAB PO ONE (00:08)
[2024-04-12] MEDS ORDERED: FOLIC ACID 1MG TAB PO SCH (09:00)
[2024-04-12] MEDS ORDERED: MULTIVITAMINS/MINERALS THERAP 1 TAB PO SCH (09:00)
[2024-04-12] MEDS ORDERED: METAL LOCK LOOP XX ONE (15:39)
== END 2024-04-12 00:04 | disposition short-term general hospital (02) ==
LOC: EDBD 17:45 → M ED 17:45
DX: F10.130 Alcohol abuse with withdrawal, uncomplicated (principal); F32.A Depression, unspecified; R00.0 Tachycardia, unspecified; I45.81 Long QT syndrome; I10 Essential (primary) hypertension; N40.0 Benign prostatic hyperplasia without lower urinary tract symptoms; E03.9 Hypothyroidism, unspecified; F31.9 Bipolar disorder, unspecified; Z79.2 Long term (current) use of antibiotics; Z79.899 Other long term (current) drug therapy
CPT/HCPCS: 80048; 80076; 80143; 80307; 82077; 82550; 83735; 84443; 85025; 93005; 93041; 94760; 96374; 99285; J2060

== ENCOUNTER 2024-07-04 19:23 | Inpatient (IN) | payer MEDICARE, MEDICAID ==
[~2024-07-04] VITALS: Ht 170.2 cm; Wt 78.3 kg
[~2024-07-04 19:23] MED LIST changes: +BUPR-670; -BUPR1TAB52; -FLOM0.4C39 PO; +FLUV100T20 PO; -FLUV100T25 PO; -LITH450T11 PO; +LITH450T17 PO; -SUMA6PEN3 SC; +SUMA6PEN5 SC; +TAMS-18 PO
[2024-07-04 20:00] LABS: HEMATOCRIT 49.6 % (42.0-52.0); MEAN CORPUSCULAR HEMOGLOBIN 31.9 pg (27.0-33.0); MEAN CORPUSCULAR HGB CONC 34.3 g/dl (32.0-36.5); MEAN CORPUSCULAR VOLUME 93.1 fl (80.0-96.0); PLATELET COUNT, AUTOMATED 270 10^3/uL (150-450); RED BLOOD COUNT 5.33 10^6/uL (4.30-6.10); WHITE BLOOD COUNT 11.6 10^3/uL (4.0-10.0)
[2024-07-04 20:23] LABS: AMPHETAMINES LEVEL URINE NEGATIVE (NEGATIVE); BARBITURATES URINE NEGATIVE (NEGATIVE); CANNABINOIDS URINE NEGATIVE (NEGATIVE); COCAINE METABOLITE URINE NEGATIVE (NEGATIVE); METHADONE URINE NEGATIVE (NEGATIVE); OPIATES URINE NEGATIVE (NEGATIVE); PHENCYCLIDINE URINE NEGATIVE (NEGATIVE)
[2024-07-04 20:26] LABS: ETHYL ALCOHOL (ETHANOL) 0.107 % (0.000-0.010)
[2024-07-04 20:28] LABS: ALBUMIN 3.6 G/DL (3.2-5.2); ALKALINE PHOSPHATASE 91 U/L (40-129); ALT/SGPT 28 U/L (7.0-40); AST/SGOT 8 U/L (<34); BILIRUBIN,DIRECT < 0.1 MG/DL (<0.4); BILIRUBIN,TOTAL 0.3 MG/DL (0.3-1.2); BLOOD UREA NITROGEN 12 MG/DL (9-23); CALCIUM LEVEL 9.5 MG/DL (8.5-10.1); CARBON DIOXIDE LEVEL 24 MMOL/L (20-31); CHLORIDE LEVEL 107 MMOL/L (98-107); CREATININE FOR GFR 0.77 MG/DL (0.70-1.30); GLOMERULAR FILTRATION RATE > 90.0 (>60); GLUCOSE, FASTING 79 MG/DL (60-100); SALICYLATE LEVEL < 3.0 MG/DL (<30); SODIUM LEVEL 142 MMOL/L (136-145); TOTAL PROTEIN 7.2 G/DL (5.7-8.2)
[2024-07-04 20:30] LABS: THYROID STIMULATING HORMONE 2.348 uIU/ML (0.55-4.78)
[2024-07-04 20:39] LABS: BENZODIAZEPINES URINE POSITIVE (NEGATIVE)
[2024-07-04] MEDS: DERMABOND TOPICAL SKIN ADHESIVE TOP ONE (22:50)
[2024-07-05] VITALS (7 sets, daily range): BP systolic 145–165; BP diastolic 68–110; TEMP 97–97.7; O2SAT 95–100
[2024-07-05] MEDS ORDERED: IBUPROFEN 400MG TAB PO PRN (00:10)
[2024-07-05] MEDS ORDERED: MOM 30ML SUSPENSION UDC PO PRN (00:10)
[2024-07-05] MEDS ORDERED: ACETAMINOPHEN 325 MG TAB PO PRN (00:10)
[2024-07-05] MEDS ORDERED: MAALOX 30 ML SUSP *UDC PO PRN (00:10)
[2024-07-05] MEDS ORDERED: ZOLP10TA2 PO (00:34)
[2024-07-05] MEDS ORDERED: LOSA100T46 PO (00:34)
[2024-07-05] MEDS ORDERED: THERTAB52 PO (00:34)
[2024-07-05] MEDS ORDERED: TAMS1CAP17 PO (00:34)
[2024-07-05] MEDS ORDERED: HOME MED LIST COMPLETE! XX SCH (00:35)
[2024-07-05] MEDS: diphenhydrAMINE 25MG CAP PO PRN (01:49)
[2024-07-05] MEDS: traZODone 50 MG TAB PO PRN (01:49)
[2024-07-05] MEDS: THIAMINE 100 MG TAB PO SCH (09:16)
[2024-07-05] MEDS: FOLIC ACID 1MG TAB PO SCH (09:16)
[2024-07-05] MEDS: TAMSULOSIN 0.4 MG CAP PO SCH (09:16)
[2024-07-05] MEDS: SERTRALINE 100 MG TAB PO SCH (09:16)
[2024-07-05] MEDS: MULTIVITAMINS/MINERALS THERAP 1 TAB PO SCH (09:16)
[2024-07-05] MEDS: LOSARTAN 50MG TABLET PO SCH (09:17)
[2024-07-05] MEDS: OLANZapine 5 MG TAB PO SCH (09:17)
[2024-07-05] MEDS: LORazepam 2 MG TAB PO PRN (10:12)
[2024-07-05] MEDS: NICOTINE POLACRILEX 2 MG GUM PO PRN (16:34)
[2024-07-05] MEDS: LITHIUM CARBONATE 150 MG CAP PO SCH (20:47)
[2024-07-06] VITALS (8 sets, daily range): BP systolic 141–180; BP diastolic 89–118; TEMP 97.4–97.7; O2SAT 98
[2024-07-06] MEDS: cloNIDine 0.1MG TABLET PO SCH (18:38)
[2024-07-06] MEDS: chlordiazePOXIDE 25 MG CAP PO ONE (20:12)
[2024-07-07 06:03] VITALS: BP 137/85; TEMP 96.8; O2SAT 97
[2024-07-07 08:05] VITALS: BP 170/110
[2024-07-07 08:07] VITALS: BP 170/110
[2024-07-07] MEDS: chlordiazePOXIDE 25 MG CAP PO SCH (08:09)
[2024-07-07] MEDS: NALTREXONE 50 MG TAB PO SCH (08:09)
[2024-07-07] MEDS: LITHIUM CARBONATE 300 MG **CR** TAB PO SCH (12:54)
[2024-07-07 14:00] VITALS: BP 119/70
[2024-07-07 17:35] VITALS: BP 130/82; TEMP 97.5; O2SAT 97
[2024-07-07] MEDS: OLANZapine 10 MG TAB PO SCH (20:10)
[2024-07-07 22:20] VITALS: BP 132/73
[2024-07-08] VITALS (7 sets, daily range): BP systolic 124–160; BP diastolic 83–102; TEMP 97.3–97.9; O2SAT 97–98
[2024-07-09] VITALS (10 sets, daily range): BP systolic 130–178; BP diastolic 65–104; TEMP 97.3–97.5; O2SAT 97–99
[2024-07-09] MEDS: LITHIUM CARBONATE 450 MG **CR** TAB PO SCH (20:09)
[2024-07-09] MEDS: zolPIDEM TARTRATE 5 MG TAB PO PRN (23:03)
[2024-07-10 06:00] VITALS: BP 148/77; TEMP 97.7; O2SAT 95
[2024-07-10 08:40] VITALS: BP 138/78
[2024-07-10] MEDS: busPIRone 10 MG TAB PO SCH (09:34)
[2024-07-10 10:53] VITALS: BP 138/88
[2024-07-10 14:53] VITALS: BP 142/90; TEMP 97.8; O2SAT 96
[2024-07-11 06:45] VITALS: BP 152/100; TEMP 97.2; O2SAT 98
[2024-07-11 06:52] VITALS: BP 140/90
[2024-07-11 08:23] VITALS: BP 135/91
[2024-07-11] MEDS ORDERED: VIVI380I IM (13:48)
[2024-07-11 14:40] VITALS: BP 156/86
[2024-07-11] MEDS: LORazepam 1 MG TAB PO STA (14:53)
[2024-07-11 15:49] VITALS: BP 156/86; TEMP 98.1; O2SAT 96
[2024-07-12 06:37] VITALS: BP 150/100; TEMP 97.1; O2SAT 95
[2024-07-12 08:02] VITALS: BP 140/88
[2024-07-12 15:51] VITALS: BP 142/88; TEMP 97; O2SAT 97
[2024-07-12] MEDS: LORazepam 1 MG TAB PO ONE (18:30)
[2024-07-13] MEDS ORDERED: OLAN1TAB20 PO (06:13)
[2024-07-13] MEDS ORDERED: THERTAB19 PO (06:13)
[2024-07-13] MEDS ORDERED: ZOLP-532 PO (06:13)
[2024-07-13] MEDS ORDERED: NICO2GUM PO (06:13)
[2024-07-13] MEDS ORDERED: LITH450T17 PO (06:13)
[2024-07-13] MEDS ORDERED: TAMS1CAP17 PO (06:13)
[2024-07-13] MEDS ORDERED: BUSP10TA PO (06:13)
[2024-07-13] MEDS ORDERED: ZOLO100T PO (06:13)
[2024-07-13] MEDS ORDERED: LOSA-528 PO (06:13)
[2024-07-13] MEDS ORDERED: FOLI1TAB11 PO (06:13)
[2024-07-13 06:37] VITALS: BP 144/90; TEMP 97.4; O2SAT 96
[2024-07-13 17:23] VITALS: BP 138/97; TEMP 97.5; O2SAT 98
[2024-07-13] MEDS: LORazepam 1 MG TAB PO PRN (18:06)
[2024-07-14 06:47] VITALS: BP 142/83; TEMP 97.1; O2SAT 98
[2024-07-14 15:48] VITALS: BP 154/82; TEMP 98; O2SAT 95
[2024-07-15 06:45] VITALS: BP 159/98; TEMP 97.3; O2SAT 98
[2024-07-15 08:05] VITALS: BP 152/92
[2024-07-15 14:27] VITALS: BP 170/96; TEMP 97.8; O2SAT 99
[2024-07-15] MEDS: LORazepam 2 MG TAB PO PRN (14:36)
[2024-07-15 15:36] VITALS: BP_SYST 140; BP_SYST 144; BP_SYST 150; BP_DIAS 90
[2024-07-16 06:59] VITALS: BP 170/108; TEMP 97.2; O2SAT 96
[2024-07-16] MEDS: LORazepam 2 MG TAB PO PRN (07:05)
[2024-07-16 08:23] VITALS: BP 150/90
[2024-07-16 08:24] VITALS: BP 150/90
== END 2024-07-16 11:26 | disposition home or self-care (01) | DRG 885 ==
LOC: M ED 19:23 → M ED INP 07-05 00:07 → M PSY 07-05 01:18
PROVIDERS: ADMIT Psychiatry & Neurology Neurology; ATTEND Psychiatry & Neurology Neurology
DX: F31.81 Bipolar II disorder (principal); R45.851 Suicidal ideations; I13.0 Hypertensive heart and chronic kidney disease with heart failure and stage 1 through stage 4 chronic kidney disease, or unspecified chronic kidney disease; F10.231 Alcohol dependence with withdrawal delirium; F42.9 Obsessive-compulsive disorder, unspecified; F41.9 Anxiety disorder, unspecified; E03.9 Hypothyroidism, unspecified; N40.0 Benign prostatic hyperplasia without lower urinary tract symptoms; F17.200 Nicotine dependence, unspecified, uncomplicated; N18.9 Chronic kidney disease, unspecified; I50.9 Heart failure, unspecified; Z79.899 Other long term (current) drug therapy; Z91.52 Personal history of nonsuicidal self-harm; Z91.51 Personal history of suicidal behavior; S51.811A Laceration without foreign body of right forearm, initial encounter; S51.812A Laceration without foreign body of left forearm, initial encounter; W26.8XXA Contact with other sharp object(s), not elsewhere classified, initial encounter; Y92.9 Unspecified place or not applicable

== ENCOUNTER 2024-07-16 14:09 | Outpatient (RCR) | payer MEDICARE, MEDICAID | END 2024-07-18 | LOC: M OUTALCOH 14:09 | PROVIDERS: ATTEND Psychiatry & Neurology Psychiatry | DX: F10.20 Alcohol dependence, uncomplicated (principal); F17.200 Nicotine dependence, unspecified, uncomplicated ==

== ENCOUNTER → 2024-07-16 | Outpatient (CLI) | payer MEDICARE, MEDICAID ==
[~2024-07-16] MED LIST changes: +LOSA-528 PO; +THERTAB19 PO; +THERTAB52 PO; +VIVI380I IM; +ZOLP-532 PO
== END ==
LOC: M OUTALCOH 11:56
PROVIDERS: ATTEND Psychiatry & Neurology Psychiatry
DX: F10.20 Alcohol dependence, uncomplicated (principal)

== ENCOUNTER 2024-10-03 21:43 | Inpatient (IN) | payer MEDICARE, MEDICAID ==
[~2024-10-03] VITALS: Ht 175.3 cm; Wt 77.3 kg
[~2024-10-03 21:43] MED LIST changes: -ALPH600C PO; +ALPH600C2 PO; +DEPA250T PO; -DEPA250T2 PO; -DEPA250T32 PO; +DIVA-65 PO; +LAMO-18 PO; -LAMO25TA4 PO
[2024-10-03 22:18] LABS: PLATELET COUNT, AUTOMATED 233 10^3/uL (150-450)
[2024-10-03 22:40] LABS: AMPHETAMINES LEVEL URINE NEGATIVE (NEGATIVE)
[2024-10-03 22:41] LABS: BARBITURATES URINE NEGATIVE (NEGATIVE); BENZODIAZEPINES URINE NEGATIVE (NEGATIVE); CANNABINOIDS URINE NEGATIVE (NEGATIVE); COCAINE METABOLITE URINE NEGATIVE (NEGATIVE); METHADONE URINE NEGATIVE (NEGATIVE); OPIATES URINE NEGATIVE (NEGATIVE); PHENCYCLIDINE URINE NEGATIVE (NEGATIVE)
[2024-10-03 22:43] LABS: ETHYL ALCOHOL (ETHANOL) 0.147 % (0.000-0.010); SALICYLATE LEVEL < 3.0 MG/DL (<30)
[2024-10-03 22:45] LABS: ALT/SGPT 25 U/L (7.0-40); AST/SGOT 13 U/L (<34); CALCIUM LEVEL 9.1 MG/DL (8.5-10.1); CARBON DIOXIDE LEVEL 21 MMOL/L (20-31); CHLORIDE LEVEL 108 MMOL/L (98-107); CREATININE FOR GFR 0.84 MG/DL (0.70-1.30); GLOMERULAR FILTRATION RATE > 90.0 (>60); POTASSIUM SERUM 3.9 MMOL/L (3.5-5.1); SODIUM LEVEL 143 MMOL/L (136-145)
[2024-10-04] VITALS (7 sets, daily range): BP systolic 154–188; BP diastolic 78–111; TEMP 98.1–98.7; O2SAT 98–99
[2024-10-04 01:02] LABS: LITHIUM LEVEL < 0.10 MMOL/L (1.0-1.20)
[2024-10-04] MEDS ORDERED: LITH450T17 PO (09:33)
[2024-10-04] MEDS ORDERED: TAMS-18 PO (09:33)
[2024-10-04] MEDS ORDERED: BUSP10TA PO (09:33)
[2024-10-04] MEDS ORDERED: NALT50TA4 PO (09:33)
[2024-10-04] MEDS ORDERED: HOME MED LIST COMPLETE! XX SCH (09:35)
[2024-10-04] MEDS: FOLIC ACID 1 MG TAB PO SCH (11:05)
[2024-10-04] MEDS: MULTIVITAMINS/MINERALS THERAP 1 TAB PO SCH (11:05)
[2024-10-04] MEDS: THIAMINE 100 MG TAB PO SCH ×2 (11:05→20:36)
[2024-10-04] MEDS ORDERED: MOM 30 ML SUSPENSION UDC PO PRN (11:30)
[2024-10-04] MEDS ORDERED: MAALOX 30 ML SUSP *UDC PO PRN (11:30)
[2024-10-04] MEDS: NICOTINE POLACRILEX 2 MG GUM PO PRN (16:23)
[2024-10-04] MEDS: OXAZEPAM 15MG CAP PO SCH (23:18)
[2024-10-05] VITALS (10 sets, daily range): BP systolic 155–178; BP diastolic 86–108; TEMP 97.1–97.9; O2SAT 98–100
[2024-10-05] MEDS: FOLIC ACID 1 MG TAB PO SCH (08:26)
[2024-10-05] MEDS: NALTREXONE 50 MG TAB PO SCH (08:27)
[2024-10-05] MEDS: MULTIVITAMINS/MINERALS THERAP 1 TAB PO SCH (08:27)
[2024-10-05] MEDS ORDERED: SERTRALINE 100 MG TAB PO SCH (09:00)
[2024-10-05] MEDS: SERTRALINE HCL 50 MG TAB PO SCH (09:43)
[2024-10-05] MEDS: LITHIUM CARBONATE 150 MG CAP PO SCH (09:43)
[2024-10-05] MEDS: LOSARTAN 50 MG TABLET PO SCH (20:49)
[2024-10-05] MEDS: OLANZapine 5 MG TAB PO SCH (20:50)
[2024-10-06] VITALS (7 sets, daily range): BP systolic 119–161; BP diastolic 79–100; TEMP 97.7–98.6; O2SAT 81–97
[2024-10-06] MEDS: OXAZEPAM 15MG CAP PO SCH (00:25)
[2024-10-06] MEDS: TAMSULOSIN 0.4 MG CAP PO SCH (08:10)
[2024-10-06] MEDS: LIDOCAINE 5% PATCH TD ONE (10:49)
[2024-10-07 06:30] VITALS: BP 168/100; TEMP 98.2; O2SAT 98
[2024-10-07] MEDS: IBUPROFEN 400 MG TAB PO PRN (11:13)
[2024-10-07 13:30] VITALS: BP 158/100
[2024-10-07] MEDS: OXAZEPAM 15MG CAP PO SCH (14:00)
[2024-10-07 15:00] VITALS: BP 160/90; TEMP 98; O2SAT 99
[2024-10-07] MEDS: traZODone 50 MG TAB PO PRN (20:13)
[2024-10-07] MEDS: amLODIPine 5 MG TAB PO SCH (20:13)
[2024-10-08 06:06] VITALS: BP 153/70; TEMP 97.6; O2SAT 100
[2024-10-08] MEDS: SERTRALINE 100 MG TAB PO SCH (08:18)
[2024-10-08 15:00] VITALS: BP 146/82
[2024-10-08 16:18] VITALS: BP 146/82; TEMP 98; O2SAT 97
[2024-10-08 18:42] VITALS: TEMP 98; O2SAT 99
[2024-10-08 20:00] VITALS: BP 152/88
[2024-10-08] MEDS: OLANZapine 10 MG TAB PO SCH (20:39)
[2024-10-08] MEDS: LITHIUM CARBONATE 300 MG CAP PO SCH (20:40)
[2024-10-08 22:00] VITALS: BP 146/84
[2024-10-09 06:00] VITALS: BP 140/99; TEMP 97.9; O2SAT 100
[2024-10-09 15:08] VITALS: BP 146/91; TEMP 98.7; O2SAT 98
[2024-10-09] MEDS: LORazepam 1 MG TAB PO PRN (15:28)
[2024-10-09] MEDS: OXAZEPAM 15MG CAP PO SCH (18:20)
[2024-10-10 06:38] VITALS: BP 144/94; TEMP 97.7; O2SAT 95
[2024-10-10] MEDS: ACETAMINOPHEN 325 MG TAB PO PRN (10:51)
[2024-10-10 15:16] VITALS: BP 150/88; TEMP 98.9; O2SAT 96
[2024-10-11 06:29] VITALS: BP 142/84; TEMP 97.9; O2SAT 96
[2024-10-11 15:37] VITALS: BP 141/76; TEMP 97; O2SAT 100
[2024-10-12] MEDS ORDERED: TAMS-18 PO (00:07)
[2024-10-12] MEDS ORDERED: TRAZ-252 PO (00:07)
[2024-10-12] MEDS ORDERED: NALT50TA4 PO (00:07)
[2024-10-12] MEDS ORDERED: HYDR50TA70 PO (00:07)
[2024-10-12] MEDS ORDERED: LITH300C PO (00:07)
[2024-10-12] MEDS ORDERED: OLAN1TAB20 PO (00:07)
[2024-10-12] MEDS ORDERED: ZOLO100T PO (00:07)
[2024-10-12] MEDS ORDERED: AMLO1TAB24 PO (00:07)
[2024-10-12] MEDS ORDERED: BUSP10TA PO (00:07)
[2024-10-12] MEDS ORDERED: LOSA-528 PO (00:07)
[2024-10-12] MEDS ORDERED: CLONI1TA PO (00:07)
[2024-10-12] MEDS ORDERED: OXAZEPAM 15MG CAP PO SCH (06:00)
[2024-10-12 06:32] VITALS: BP 140/84; TEMP 98.2; O2SAT 97
[2024-10-12 08:11] VITALS: BP 141/94
== END 2024-10-12 14:14 | disposition home or self-care (01) | DRG 885 ==
LOC: M ED 21:43 → M ED INP 10-04 11:26 → M PSY 10-04 12:07
PROVIDERS: ADMIT General Practice; ATTEND Internal Medicine
DX: F31.62 Bipolar disorder, current episode mixed, moderate (principal); F10.24 Alcohol dependence with alcohol-induced mood disorder; R45.851 Suicidal ideations; Z91.51 Personal history of suicidal behavior; I11.9 Hypertensive heart disease without heart failure; N40.0 Benign prostatic hyperplasia without lower urinary tract symptoms; L21.9 Seborrheic dermatitis, unspecified; F11.11 Opioid abuse, in remission; K76.0 Fatty (change of) liver, not elsewhere classified; K21.9 Gastro-esophageal reflux disease without esophagitis; F17.200 Nicotine dependence, unspecified, uncomplicated; F41.1 Generalized anxiety disorder; Z91.148 Patient's other noncompliance with medication regimen for other reason; Z79.899 Other long term (current) drug therapy

== ENCOUNTER 2025-02-14 21:18 | Emergency (ER) | payer MEDICARE, MEDICAID ==
[~2025-02-14 21:18] MED LIST changes: +AMLO1TAB24 PO; +CLONI1TA PO; -IBUP-1022 PO; +IBUP600T42 PO; +LITH300C PO; +NOREPINEPHRINE 4 MG IN D5W 250 ML IVBAG (16 MCG/ML) As Ordered ONE; +ZOLP10TA11; +ZOLP10TA11 PO; -ZOLP10TA2; -ZOLP10TA2 PO
[2025-02-14] MEDS ORDERED: DEXTROSE 50% 50 ML SYRINGE ONE (21:29)
[2025-02-14] MEDS: NOREPINEPHRINE 4MG IN D5 250ML 4 MG in IV 1 EA IV SCH (21:32)
[2025-02-14 21:38] VITALS: BP_SYST 50
[2025-02-14 21:42] LABS: VENOUS BASE EXCESS -20.0 (-2.0-2.0); VENOUS HCO3 9.8 MMOL/L (23.0-27.0); VENOUS O2 SATURATION 84.0 % (60.0-80.0); VENOUS PARTIAL PRESSURE CO2 36.6 mmHg (38.0-50.0); VENOUS PARTIAL PRESSURE O2 64.2 mmHg (30.0-50.0); VENOUS PH 7.047 UNITS (7.330-7.430); VENOUS STANDARD HCO3 10.2 MMOL/L; VENOUS TOTAL CO2 11.0 MMOL/L (24.0-28.0)
[2025-02-14 21:43] LABS: PLATELET COUNT, AUTOMATED 189 10^3/uL (150-450)
[2025-02-14 22:03] LABS: ATYPICAL LYMPH 2 % (0-5); EOSINOPHILS 1 % (0-3); LYMPHOCYTES 56 % (16-44); MONOCYTES 9 % (0-5); NEUTROPHILS 31 % (28-66)
[2025-02-14 22:04] LABS: ETHYL ALCOHOL (ETHANOL) 0.173 % (0.000-0.010); PLATELET ESTIMATE NORMAL (NORMAL)
[2025-02-14 22:06] LABS: SALICYLATE LEVEL < 3.0 MG/DL (<30)
[2025-02-14] MEDS ORDERED: CALCIUM CHLORIDE 10% 1 GM/10 ML SYR As Ordered ONE (22:08)
[2025-02-14 22:09] LABS: ALT/SGPT 26 U/L (7.0-40); AST/SGOT 23 U/L (<34); CALCIUM LEVEL 7.5 MG/DL (8.5-10.1); CARBON DIOXIDE LEVEL < 10.0 MMOL/L (20-31); CHLORIDE LEVEL 109 MMOL/L (98-107); CPK CREATINE PHOSPHOKINASE 111 U/L (46-171); CREATININE FOR GFR 1.11 MG/DL (0.70-1.30); GLOMERULAR FILTRATION RATE 81.9 (>60); POTASSIUM SERUM 3.3 MMOL/L (3.5-5.1); SODIUM LEVEL 145 MMOL/L (136-145)
[2025-02-14] MEDS ORDERED: GLUCAGON INJ 1 MG VIAL As Ordered ONE (22:12)
[2025-02-14] MEDS: GLUCAGON INJ 1 MG VIAL IV STA (22:13)
[2025-02-14 22:15] VITALS: TEMP 97.2
[2025-02-14 22:18] VITALS: O2SAT 71
[2025-02-14] MEDS: MIDAZOLAM 100MG/100ML-0.9%NACL 100 MG in IV 1 EA IV SCH (22:23)
[2025-02-14] MEDS: ROCURONIUM BROMIDE 50MG/5ML VIAL IV SCH (22:27)
[2025-02-14] MEDS: ETOMIDATE 20 MG/10 ML VIAL IV STA (22:28)
[2025-02-14] MEDS ORDERED: LEVO25TA5 PO (22:39)
[2026-02-14] MEDS ORDERED: CALCIUM CHLORIDE 10% 1 GM in D5W 100 ML IV ONE ×2 (22:09→22:12)
== END 2025-02-14 22:18 | disposition expired ==
LOC: EDBD 21:18 → M ED 21:28
DX: I46.9 Cardiac arrest, cause unspecified (principal); T46.1X2A Poisoning by calcium-channel blockers, intentional self-harm, initial encounter; Z79.899 Other long term (current) drug therapy; Z79.810 Long term (current) use of selective estrogen receptor modulators (SERMs)
CPT/HCPCS: 31500; 36556; 51702; 71045; 80047; 80048; 80076; 80143; 82077; 82550; 82803; 84443; 85025; 92953; 93041; 94760; 96365; 96375; 99291; J1610